=== PATIENT | female | born 2005 | race Caucasian/White ===

== ENCOUNTER 2024-03-17 00:03 | Inpatient (IN) | payer OTHER, SELFPAY ==
[2024-03-17] VITALS (162 sets, daily range): BP systolic 95–152; BP diastolic 22–102; PULSE 64–169; TEMP 36.3–37; O2SAT 93–100; BMI 41.5
--- NOTE | 2024-03-17 00:44 | LDADM ---
This patient, Loulou Chang, was admitted to Labor/Delivery/Recovery 107 on 03/17/24 at 00:03. Plans for labor, pain management and were discussed with patient. Patient/family oriented to hospital policies and general routines including ID bracelet, bed and alarms, visiting hours, pain management, procedures, bathroom and other care routines, personal items, smoking policy, room service/diet and guest tray routines, security routines, and visiting hours. Patient/Family are encouraged to report perceived risks to care and to ask questions if they do not understand what they are told or what they should do. See OBIX for further documentation.
[2024-03-17] MEDS: miSOPROStol 25 MCG TABLET 50 MCG BUCCAL ×3 (01:10→09:21)
[2024-03-17 01:16] LABS: Basophils Percent Auto 0.4 % (0.2-1.2); Eosinophils Absolute Auto 0.1 K/mm3 (0-0.3); Eosinophils Percent Auto 1.1 % (0-4.4); Hemoglobin 10.4 g/dL (12.0-15.0); Immature Granulocyte Absolute 0.23 K/mm3 (0.00-0.031); Immature Granulocyte Percent A 2.5 % (0-0.5); Lymphocytes Absolute Auto 1.56 K/mm3 (0.9-3.2); Lymphocytes Percent Auto 16.7 % (18.3-44.2); Mean Corpuscular HGB Conc 32.5 g/dl (32-36); Mean Corpuscular Hemoglobin 26.9 pg (26-34); Mean Corpuscular Volume 82.9 fl (80-100); Mean Platelet Volume 9.9 fl (7.4-10.4); Monocytes Absolute Auto 0.8 K/mm3 (0.1-0.6); Monocytes Percent Auto 8.9 % (2.6-8.5); Neutrophils Absolute Auto 6.6 K/mm3 (1.3-6.7); Neutrophils Percent Auto 70.4 % (45.5-73.1); Platelet Count Result 281 k/mm3 (150-375); Red Blood Count 3.86 M/mm3 (4.2-5.4); Red Cell Distribution Width 18.3 % (11.5-14.5); White Blood Count 9.3 K/mm3 (4.5-10.0)
[2024-03-17 02:14] LABS: HIV 1/2 Ab P24 Ag Result Negative (Negative)
[2024-03-17 02:58] LABS: Rapid Plasma Reagin Non-Reactive (NonReactive)
--- NOTE | 2024-03-17 05:23 | P.PNAN_ITS ---
Anes - Eval Pre Procedure Procedure: labor epidural Date/Time: 03/17/24 05:23 Preop Diagnosis: pain during labor Pre Op Diagnosis: Induction of Labor Patient Data Age: 18 Gender: F Height: 1.65 m Weight: 113.18 kg Last Vital Signs Pulse 93 03/17/24 05:01 BP 121/57 L 03/17/24 05:01 O2 Del Method Room Air 03/17/24 00:41 Allergies Allergy/AdvReac Type Severity Reaction Status Date / Time No Known Allergies Allergy Verified 03/17/24 01:35 Home Medications ?Medication ?Instructions ?Recorded ?Confirmed ?Type ferrous sulfate 325 mg (65 mg 325 mg PO DAILY 03/17/24 03/17/24 History iron) tablet,delayed release Laboratory Tests 03/17/24 00:19 WBC 9.3 K/mm3 (4.5-10.0) RBC 3.86 L M/mm3 (4.2-5.4) Hgb 10.4 L g/dL (12.0-15.0) Hct 32.0 L % (37.0-47.0) MCV 82.9 fl (80-100) MCH 26.9 pg (26-34) MCHC 32.5 g/dl (32-36) RDW 18.3 H % (11.5-14.5) Plt Count 281 k/mm3 (150-375) MPV 9.9 fl (7.4-10.4) Immature Gran % (Auto) 2.5 H % (0-0.5) Neut % (Auto) 70.4 % (45.5-73.1) Lymph % (Auto) 16.7 L % (18.3-44.2) [place] % (Auto) 8.9 H % (2.6-8.5) Eos % (Auto) 1.1 % (0-4.4) Baso % (Auto) 0.4 % (0.2-1.2) Lymph # (Auto) 1.56 K/mm3 (0.9-3.2) [place] # (Auto) 0.8 H K/mm3 (0.1-0.6) Eos # (Auto) 0.1 K/mm3 (0-0.3) Baso # (Auto) 0.0 K/mm3 (0.0-0.1) Abs Immat Gran (auto) 0.23 H K/mm3 (0.00-0.031) Absolute Neuts (auto) 6.6 K/mm3 (1.3-6.7) Absolute Nucleated RBC 0.000 K/mm3 (0.0-0.012) Nucleated RBC % 0.0 % (0.0-0.2) RPR Non-reactive (NonReactive) HIV 1&2 Ab/P24 Ag 4thGn Negative (Negative) Blood Type O Positive Antibody Screen Negative Patient hx anesthesia problems: none Family hx anesthesia problems: none Results Review: All pre-operative results and documents have been reviewed as part of the pre-operative evaluation. COUNTS INCLUDE 234 BEDS AT THE [facility] Past Medical History Medical History (Updated 03/17/24 @ 05:24 by Glenny Mac CRNA) Eczema Morbid obesity IUP (intrauterine ), incidental Family History Family History (Updated 03/07/24 @ 14:30 by Sissy Vaughn RN) Mother Congestive heart failure Social History Social History Smoking status: Never smoker Second hand tobacco smoke exposure: Yes Do You Feel Safe in your Home?: Yes Lack of Transportation: No Lack of Food: Never True Current Housing: I Have Housing Concerned About Future Housing: No Difficulty Paying Gas/Electric Bills: No Difficulty Paying for Meds: No Currently Unemployed: No Education: High School Diploma/GED Difficulty w/ Childcare or Family Care: No Spiritual care concerns: No Exam Day of Procedure 03/17/24 05:23
--- NOTE | 2024-03-17 08:19 | P.DS_ITS ---
DS: Admitting Diagnosis Discharge Date 03/17/24 Admitting Diagnosis term DS: Discharge Diagnosis Discharge Diagnosis (1) Term delivered: Code(s): O80 - Encounter for full-term uncomplicated delivery Status: Acute OB - DS: Summary OB Procedures : None OB Procedures Intrapartum: Spontaneous Vag Delivery OB Procedures: : None Time Spent with Patient Time attestation: Total time spent providing and/or coordinating discharge services: DS: Data Data Completed and Pending Labs on day of discharge: Labs from last 24 hours 03/17/24 00:19 WBC 9.3 RBC 3.86 L Hgb 10.4 L Hct 32.0 L MCV 82.9 MCH 26.9 MCHC 32.5 RDW 18.3 H Plt Count 281 MPV 9.9 Immature Gran % (Auto) 2.5 H Neut % (Auto) 70.4 Lymph % (Auto) 16.7 L [place] % (Auto) 8.9 H Eos % (Auto) 1.1 Baso % (Auto) 0.4 Lymph # (Auto) 1.56 [place] # (Auto) 0.8 H Eos # (Auto) 0.1 Baso # (Auto) 0.0 Abs Immat Gran (auto) 0.23 H Absolute Neuts (auto) 6.6 Absolute Nucleated RBC 0.000 Nucleated RBC % 0.0 RPR Non-reactive HIV 1&2 Ab/P24 Ag 4thGn Negative Blood Type O Positive Antibody Screen Negative Discharge Plan Discharge Discharging Clinician: Wilfrido Klein Patient Disposition: Home, Self-Care Activity: pelvic rest Diet: regular Patient Instructions: Antibiotic Form Patient Language: Nepali Stand Alone Forms: General Discharge Information Follow-up/Referrals: Wilfrido Klein MD [Physician] - Discharge Medications: Continued ferrous sulfate 325 mg (65 mg iron) tablet,delayed release (DR/EC) 325 mg PO DAILY Date of admission: 03/17/24 00:03 Primary Care Provider: UNKNOWN,DOCTOR Admitting Provider: Mike Archer Attending physician on admission: Mike Archer Condition: Stable
--- NOTE | 2024-03-17 08:19 | PM.OBPNVD ---
OB - PN: Subj Subjective Date/time seen: 03/17/24 08:19 Patient comments: no complaints, pain well controlled and tolerating diet OB - PN: Obj Data Labs 03/17/24 00:19 Labs: Laboratory Results - last 24 hr 03/17/24 00:19 WBC 9.3 RBC 3.86 L Hgb 10.4 L Hct 32.0 L MCV 82.9 MCH 26.9 MCHC 32.5 RDW 18.3 H Plt Count 281 MPV 9.9 Immature Gran % (Auto) 2.5 H Neut % (Auto) 70.4 Lymph % (Auto) 16.7 L [place] % (Auto) 8.9 H Eos % (Auto) 1.1 Baso % (Auto) 0.4 Lymph # (Auto) 1.56 [place] # (Auto) 0.8 H Eos # (Auto) 0.1 Baso # (Auto) 0.0 Abs Immat Gran (auto) 0.23 H Absolute Neuts (auto) 6.6 Absolute Nucleated RBC 0.000 Nucleated RBC % 0.0 RPR Non-reactive HIV 1&2 Ab/P24 Ag 4thGn Negative Blood Type O Positive Antibody Screen Negative OB - PN A/P Plan day: 2 Plan: routine care and discharge home Time Spent With Patient Time: Total time spent is greater than 50% in coordination of care (as documented) at patient's floor/unit and/or counseling patient: Exam Const: General: comfortable and no acute distress Resp: Effort & Inspection: normal respiratory effort Auscultation: no rales, no rhonchi and no wheezes Cardio: Rate: regular rate Heart sounds: no click, no murmurs and no rubs GI: GI Palp: Yes Soft to palpation and No Tenderness to palpation present (GI) Auscultation: normal bowel sounds Extrem: General: normal to inspection, no pedal edema and no calf tenderness
--- NOTE | 2024-03-17 08:27 | WPDHPUPDATE1 ---
History and Physical Update Update Date/Time: 03/17/24 08:27 18-year-old 1 at term who presents for elective induction of labor. She has received 2 doses Cytotec for unfavorable cervix. Her cervix remains less than a cm on last cervical exam. She has reassuring status. Will proceed with active management of labor induction. History and Physical has been reviewed, including an updated exam of the patient. There are NO changes in the patient's condition. Risks, benefits, and alternatives have been discussed and questions answered. Patient agrees to proceed with procedure.
--- NOTE | 2024-03-17 13:15 | PM.OBPNVD ---
OB - PN: Subj Subjective Date/time seen: 03/17/24 13:15 Interval history: Artificial rupture of membranes -meconium-stained fluid, 1 cm, 60%, -2. Reassuring status. Continue active management of labor. Start Pitocin when needed. OB - PN: Obj Data Labs 03/17/24 00:19 Labs: Laboratory Results - last 24 hr 03/17/24 00:19 WBC 9.3 RBC 3.86 L Hgb 10.4 L Hct 32.0 L MCV 82.9 MCH 26.9 MCHC 32.5 RDW 18.3 H Plt Count 281 MPV 9.9 Immature Gran % (Auto) 2.5 H Neut % (Auto) 70.4 Lymph % (Auto) 16.7 L [place] % (Auto) 8.9 H Eos % (Auto) 1.1 Baso % (Auto) 0.4 Lymph # (Auto) 1.56 [place] # (Auto) 0.8 H Eos # (Auto) 0.1 Baso # (Auto) 0.0 Abs Immat Gran (auto) 0.23 H Absolute Neuts (auto) 6.6 Absolute Nucleated RBC 0.000 Nucleated RBC % 0.0 RPR Non-reactive HIV 1&2 Ab/P24 Ag 4thGn Negative Blood Type O Positive Antibody Screen Negative OB - PN A/P Time Spent With Patient Time: Total time spent is greater than 50% in coordination of care (as documented) at patient's floor/unit and/or counseling patient:
[2024-03-17] MEDS: LACTATED RINGERS 1,000 ML 125 ML IV CONT (13:27)
[2024-03-17] MEDS: OXYTOCIN 30 UNITS/NS 500 ML 30 UNITS/500 ML BAG IV CONT (13:29)
[2024-03-17] MEDS: fentaNYL CITRATE INJ (*CRX) 100 MCG/2 ML VIAL IV PUSH ×2 (14:17→15:25)
[2024-03-17] MEDS: LACTATED RINGERS 1,000 ML 999 ML IV CONT ×2 (16:13→21:20)
[2024-03-18] VITALS (93 sets, daily range): BP systolic 65–152; BP diastolic 43–101; PULSE 92–204; RESP 14–28; TEMP 36.1–38.1; O2SAT 79–100
[2024-03-18] MEDS: AZITHROMYCIN 500 MG/NS 250 ML 500 MG/250 ML BAG 250 MG IVPB (03:25)
[2024-03-18] MEDS: ceFAZolin 2 GM/D5W 50 ML 2 GM/50 ML BAG IVPB (03:25)
[2024-03-18] MEDS: FAMOTIDINE 20 MG/2 ML VIAL IV PUSH (03:25)
[2024-03-18] MEDS: ONDANSETRON INJ 4 MG/2 ML VIAL IV PUSH (03:25)
[2024-03-18] MEDS: ACETAMINOPHEN 500 MG TABLET 1000 MG PO (03:26)
--- NOTE | 2024-03-18 03:30 | PM.IMHP ---
H&P: HPI History of Present Illness Date/Time: 03/18/24 03:30 Chief Complaint: Term Narrative: 18-year-old 1 at 39 weeks gestation who presented for elective induction. Patient progressed to complete and pushed for close to 2 hours. She then desired delivery. There was tachycardia and maternal fever. We agreed to proceed with delivery. The patient understands the details of the procedure. The procedure has been explained in detail. She understands the risks. She understands that injuries may occur that result in hospitalization, more surgery, and severe illness. She understands risk of hemorrhage and infection. She denies any chest pain or shortness of breath. She denies any nausea, vomiting, fever, chills. Review of Systems Review of Systems: All systems reviewed & are unremarkable except as noted in HPI and below Constitutional: Constitutional: Denies chills, Denies fatigue, Denies fever(s) and Denies weakness Eyes: Eyes: Denies blurry vision, Denies change in vision, Denies loss of peripheral vision, Denies loss of vision, Denies other visual disturbances and Denies eye pain ENT: Denies vertigo, Denies dizziness, Denies hearing loss, Denies mouth pain, Denies nasal obstruction, Denies neck mass and Denies neck pain Cardiovascular: Cardiovascular: Denies chest pain, Denies diaphoresis, Denies syncope, Denies leg edema and Denies dyspnea Respiratory: Respiratory: Denies chest congestion, Denies cough, Denies hemoptysis, Denies dyspnea and Denies wheezing Gastrointestinal: Gastrointestinal: Denies abdominal pain, Denies constipation, Denies diarrhea, Denies nausea and Denies vomiting Genitourinary: Genitourinary: Denies hematuria, Denies change in libido, Denies nocturia, Denies genital lesions, Denies flank pain and Denies urinary urgency Musculoskeletal: Musculoskeletal: Denies abnormal gait, Denies back pain, Denies myalgias, Denies arthralgias, Denies joint swelling, Denies muscle weakness and Denies neck pain Integumentary/Breasts: Skin/Breast: Denies swelling, Denies breast pain, Denies breast mass, Denies dry skin, Denies nipple discharge, Denies unusual bruising and Denies jaundice Neurologic: Denies Neuro-related abnormal movements, Denies Abnormal speech present, Denies abnormal gait, Denies behavioral changes, Denies confusion, Denies vertigo, Denies dizziness, Denies syncope, Denies loss of vision, Denies memory loss, Denies convulsions and Denies weakness Psychiatric: Psychiatric: Denies abnormal sleep pattern, Denies behavioral changes, Denies change in libido, Denies confusion, Denies depression, Denies anhedonia and Denies memory loss Endocrine: Endocrine: Reports no additional endocrine complaints, Denies change in libido and Denies fatigue Hematologic/Lymphatic: Hematologic/Lymphatic: Reports no additional hematologic/lymphatic complaints Allergic/Immunologic: Allergic/Immunologic: Reports no additional allergic/immunologic complaints and Denies wheezing [facility] Past Medical History Medical History (Updated 03/18/24 @ 03:39 by Wilfrido Klein MD) Eczema Morbid obesity IUP (intrauterine ), incidental Family History Family History (Updated 03/07/24 @ 14:30 by Sissy Vaughn RN) Mother Congestive heart failure Social History Social History Smoking status: Never smoker Second hand tobacco smoke exposure: Yes Do You Feel Safe in your Home?: Yes Lack of Transportation: No Lack of Food: Never True Current Housing: I Have Housing Concerned About Future Housing: No Difficulty Paying Gas/Electric Bills: No Difficulty Paying for Meds: No Currently Unemployed: No Education: High School Diploma/GED Difficulty w/ Childcare or Family Care: No Spiritual care concerns: No Meds Home Medications and Allergies Home Medications ?Medication ?Instructions ?Recorded ?Confirmed ?Type ferrous sulfate 325 mg (65 mg 325 mg PO DAILY 03/17/24 03/17/24 History iron) tablet,delayed release Allergies Allergy/AdvReac Type Severity Reaction Status Date / Time No Known Allergies Allergy Verified 03/17/24 01:35 Vital Signs Vital Signs - 24 hr 03/17/24 03:31 03/17/24 04:01 03/17/24 04:31 Temperature Pulse Rate 88 100 82 Blood Pressure 118/67 115/48 L 102/76 Pulse Oximetry Oxygen Delivery 03/17/24 05:01 03/17/24 05:31 03/17/24 06:01 Temperature Pulse Rate 93 96 108 H Blood Pressure 121/57 L 104/69 111/69 Pulse Oximetry Oxygen Delivery 03/17/24 06:31 03/17/24 07:00 03/17/24 07:01 Temperature 97.4 F L Pulse Rate 101 H 89 Blood Pressure 121/63 121/91 H Pulse Oximetry Oxygen Delivery 03/17/24 07:11 03/17/24 07:31 03/17/24 08:01 Temperature Pulse Rate 89 83 92 Blood Pressure 113/49 L 116/55 L 128/77 Pulse Oximetry Oxygen Delivery 03/17/24 08:31 03/17/24 09:01 03/17/24 09:31 Temperature Pulse Rate 86 80 93 Blood Pressure 131/83 128/77 135/87 Pulse Oximetry Oxygen Delivery 03/17/24 10:31 03/17/24 11:00 03/17/24 11:01 Temperature 97.3 F L Pulse Rate 83 81 Blood Pressure 112/54 L 110/58 L Pulse Oximetry Oxygen Delivery 03/17/24 11:31 03/17/24 12:01 03/17/24 12:31 Temperature Pulse Rate 94 91 100 Blood Pressure 111/70 120/51 L 113/49 L Pulse Oximetry Oxygen Delivery 03/17/24 13:01 03/17/24 13:30 03/17/24 13:31 Temperature 98.1 F Pulse Rate 94 101 H Blood Pressure 130/76 141/88 H Pulse Oximetry Oxygen Delivery 03/17/24 14:32 03/17/24 15:01 03/17/24 15:31 Temperature Pulse Rate 95 94 89 Blood Pressure 145/50 H 141/78 H 127/48 L Pulse Oximetry Oxygen Delivery 03/17/24 16:01 03/17/24 16:16 03/17/24 16:19 Temperature Pulse Rate 107 H 104 H 99 Blood Pressure 135/66 151/85 H 152/88 H Pulse Oximetry 97 Oxygen Delivery 03/17/24 16:21 03/17/24 16:24 03/17/24 16:26 Temperature Pulse Rate 116 H 103 H 105 H Blood Pressure 144/102 H 145/67 H 146/74 H Pulse Oximetry 100 100 Oxygen Delivery 03/17/24 16:28 03/17/24 16:31 03/17/24 16:33 Temperature Pulse Rate 111 H 117 H 104 H Blood Pressure 129/69 127/59 L 121/65 Pulse Oximetry 100 93 Oxygen Delivery 03/17/24 16:34 03/17/24 16:36 03/17/24 16:38 Temperature Pulse Rate 102 H 88 Blood Pressure 116/58 L 123/60 Pulse Oximetry 98 Oxygen Delivery 03/17/24 16:39 03/17/24 16:41 03/17/24 16:43 Temperature Pulse Rate 113 H 110 H Blood Pressure 112/56 L 111/61 Pulse Oximetry 98 Oxygen Delivery 03/17/24 16:44 03/17/24 16:46 03/17/24 16:48 Temperature Pulse Rate 93 109 H Blood Pressure 123/61 105/55 L Pulse Oximetry 98 Oxygen Delivery 03/17/24 16:49 03/17/24 16:51 03/17/24 16:53 Temperature Pulse Rate 102 H 112 H Blood Pressure 114/55 L 99/44 L Pulse Oximetry 98 Oxygen Delivery 03/17/24 16:54 03/17/24 16:56 03/17/24 16:58 Temperature Pulse Rate 120 H 116 H Blood Pressure 98/52 L 103/56 L Pulse Oximetry 98 Oxygen Delivery 03/17/24 16:59 03/17/24 17:01 03/17/24 17:03 Temperature Pulse Rate 114 H 90 Blood Pressure 119/78 122/70 Pulse Oximetry 98 Oxygen Delivery 03/17/24 17:04 03/17/24 17:06 03/17/24 17:08 Temperature Pulse Rate 74 97 Blood Pressure 125/61 111/66 Pulse Oximetry 99 Oxygen Delivery 03/17/24 17:09 03/17/24 17:14 03/17/24 17:19 Temperature Pulse Rate 122 H Blood Pressure 103/22 L Pulse Oximetry 100 100 100 Oxygen Delivery 03/17/24 17:24 03/17/24 17:29 03/17/24 17:31 Temperature Pulse Rate 91 Blood Pressure 108/63 Pulse Oximetry 100 100 Oxygen Delivery 03/17/24 17:34 03/17/24 17:39 03/17/24 17:44 Temperature Pulse Rate Blood Pressure Pulse Oximetry 100 100 100 Oxygen Delivery 03/17/24 17:46 03/17/24 17:49 03/17/24 17:54 Temperature Pulse Rate 105 H Blood Pressure 95/74 L Pulse Oximetry 100 100 Oxygen Delivery 03/17/24 17:59 03/17/24 18:01 03/17/24 18:04 Temperature Pulse Rate 91 Blood Pressure 111/50 L Pulse Oximetry 100 100 Oxygen Delivery 03/17/24 18:09 03/17/24 18:14 03/17/24 18:15 Temperature 98.6 F Pulse Rate Blood Pressure Pulse Oximetry 100 100 Oxygen Delivery 03/17/24 18:16 03/17/24 18:19 03/17/24 18:24 Temperature Pulse Rate 94 Blood Pressure 118/52 L Pulse Oximetry 100 99 Oxygen Delivery 03/17/24 18:29 03/17/24 18:29 03/17/24 18:31 Temperature Pulse Rate 95 Blood Pressure 103/43 L Pulse Oximetry 100 Oxygen Delivery Room Air 03/17/24 18:34 03/17/24 18:39 03/17/24 18:44 Temperature Pulse Rate Blood Pressure Pulse Oximetry 100 100 100 Oxygen Delivery 03/17/24 18:49 03/17/24 18:54 03/17/24 18:59 Temperature Pulse Rate Blood Pressure Pulse Oximetry 100 100 100 Oxygen Delivery 03/17/24 19:01 03/17/24 19:04 03/17/24 19:09 Temperature Pulse Rate 72 Blood Pressure 122/73 Pulse Oximetry 100 100 Oxygen Delivery 03/17/24 19:14 03/17/24 19:19 03/17/24 19:24 Temperature Pulse Rate Blood Pressure Pulse Oximetry 100 100 99 Oxygen Delivery 03/17/24 19:29 03/17/24 19:31 03/17/24 19:34 Temperature Pulse Rate 78 Blood Pressure 134/73 Pulse Oximetry 99 100 Oxygen Delivery 03/17/24 19:36 03/17/24 19:41 03/17/24 19:46 Temperature Pulse Rate Blood Pressure Pulse Oximetry 100 100 100 Oxygen Delivery 03/17/24 19:51 03/17/24 19:56 03/17/24 20:00 Temperature 98.5 F Pulse Rate Blood Pressure Pulse Oximetry 100 100 Oxygen Delivery 03/17/24 20:01 03/17/24 20:06 03/17/24 20:11 Temperature Pulse Rate 97 Blood Pressure 123/70 Pulse Oximetry 100 100 100 Oxygen Delivery 03/17/24 20:16 03/17/24 20:21 03/17/24 20:26 Temperature Pulse Rate Blood Pressure Pulse Oximetry 100 100 100 Oxygen Delivery 03/17/24 20:31 03/17/24 20:36 03/17/24 20:41 Temperature Pulse Rate 92 Blood Pressure 143/66 H Pulse Oximetry 100 100 100 Oxygen Delivery 03/17/24 20:46 03/17/24 20:51 03/17/24 20:56 Temperature Pulse Rate Blood Pressure Pulse Oximetry 100 100 100 Oxygen Delivery 03/17/24 21:01 03/17/24 21:06 03/17/24 21:11 Temperature Pulse Rate 94 Blood Pressure 135/66 Pulse Oximetry 100 100 100 Oxygen Delivery 03/17/24 21:17 03/17/24 21:22 03/17/24 21:27 Temperature Pulse Rate Blood Pressure Pulse Oximetry 100 100 100 Oxygen Delivery 03/17/24 21:31 03/17/24 21:32 03/17/24 21:37 Temperature Pulse Rate 111 H Blood Pressure 144/93 H Pulse Oximetry 100 100 Oxygen Delivery 03/17/24 21:42 03/17/24 21:47 03/17/24 21:52 Temperature Pulse Rate Blood Pressure Pulse Oximetry 100 100 100 Oxygen Delivery 03/17/24 21:57 03/17/24 22:00 03/17/24 22:01 Temperature 98.2 F Pulse Rate 81 Blood Pressure 147/77 H Pulse Oximetry 100 Oxygen Delivery 03/17/24 22:02 03/17/24 22:07 03/17/24 22:12 Temperature Pulse Rate Blood Pressure Pulse Oximetry 100 100 100 Oxygen Delivery 03/17/24 22:17 03/17/24 22:22 03/17/24 22:27 Temperature Pulse Rate Blood Pressure Pulse Oximetry 100 100 100 Oxygen Delivery 03/17/24 22:31 03/17/24 22:32 03/17/24 22:37 Temperature Pulse Rate 111 H Blood Pressure 106/81 Pulse Oximetry 100 100 Oxygen Delivery 03/17/24 22:42 03/17/24 22:47 03/17/24 22:48 Temperature Pulse Rate Blood Pressure Pulse Oximetry 100 100 98 Oxygen Delivery 03/17/24 22:53 03/17/24 22:58 03/17/24 23:02 Temperature Pulse Rate 104 H Blood Pressure 129/69 Pulse Oximetry 100 100 Oxygen Delivery 03/17/24 23:03 03/17/24 23:08 03/17/24 23:09 Temperature Pulse Rate Blood Pressure Pulse Oximetry 100 100 100 Oxygen Delivery 03/17/24 23:14 03/17/24 23:19 03/17/24 23:24 Temperature Pulse Rate Blood Pressure Pulse Oximetry 100 100 100 Oxygen Delivery 03/17/24 23:29 03/17/24 23:31 03/17/24 23:36 Temperature Pulse Rate 169 H Blood Pressure 111/90 Pulse Oximetry 100 100 100 Oxygen Delivery 03/17/24 23:41 03/17/24 23:46 03/17/24 23:51 Temperature Pulse Rate Blood Pressure Pulse Oximetry 100 100 100 Oxygen Delivery 03/17/24 23:56 03/18/24 00:00 03/18/24 00:01 Temperature 98.2 F Pulse Rate Blood Pressure 99/45 L Pulse Oximetry 100 100 Oxygen Delivery 03/18/24 00:02 03/18/24 00:02 03/18/24 00:07 Temperature Pulse Rate Blood Pressure Pulse Oximetry 100 100 100 Oxygen Delivery 03/18/24 00:12 03/18/24 00:17 03/18/24 00:22 Temperature Pulse Rate Blood Pressure Pulse Oximetry 100 100 100 Oxygen Delivery 03/18/24 00:27 03/18/24 00:31 03/18/24 00:32 Temperature Pulse Rate 100 Blood Pressure 122/85 Pulse Oximetry 100 100 Oxygen Delivery 03/18/24 00:37 03/18/24 00:42 03/18/24 00:47 Temperature Pulse Rate Blood Pressure Pulse Oximetry 100 100 100 Oxygen Delivery 03/18/24 00:52 03/18/24 00:57 03/18/24 01:01 Temperature Pulse Rate 96 Blood Pressure 129/73 Pulse Oximetry 99 99 Oxygen Delivery 03/18/24 01:02 03/18/24 01:07 03/18/24 01:12 Temperature Pulse Rate Blood Pressure Pulse Oximetry 99 99 100 Oxygen Delivery 03/18/24 01:17 03/18/24 01:22 03/18/24 01:27 Temperature Pulse Rate Blood Pressure Pulse Oximetry 100 100 100 Oxygen Delivery 03/18/24 01:31 03/18/24 01:32 03/18/24 01:37 Temperature Pulse Rate 99 Blood Pressure 120/61 Pulse Oximetry 100 100 Oxygen Delivery 03/18/24 01:42 03/18/24 01:47 03/18/24 01:52 Temperature Pulse Rate Blood Pressure Pulse Oximetry 100 100 100 Oxygen Delivery 03/18/24 01:57 03/18/24 02:01 03/18/24 02:02 Temperature Pulse Rate 124 H Blood Pressure 117/101 H Pulse Oximetry 100 100 Oxygen Delivery 03/18/24 02:07 03/18/24 02:12 03/18/24 02:14 Temperature Pulse Rate Blood Pressure Pulse Oximetry 100 100 92 Oxygen Delivery 03/18/24 02:16 03/18/24 02:19 03/18/24 02:24 Temperature Pulse Rate Blood Pressure Pulse Oximetry 100 100 100 Oxygen Delivery 03/18/24 02:29 03/18/24 02:31 03/18/24 02:32 Temperature Pulse Rate 204 H Blood Pressure 65/43 L Pulse Oximetry 98 100 Oxygen Delivery 03/18/24 02:34 03/18/24 02:37 03/18/24 02:42 Temperature Pulse Rate 159 H Blood Pressure 86/59 L Pulse Oximetry 100 100 Oxygen Delivery 03/18/24 02:45 03/18/24 02:47 03/18/24 02:48 Temperature Pulse Rate Blood Pressure Pulse Oximetry 100 79 L 85 L Oxygen Delivery 03/18/24 02:48 03/18/24 02:51 03/18/24 02:53 Temperature Pulse Rate Blood Pressure Pulse Oximetry 100 100 100 Oxygen Delivery 03/18/24 02:56 03/18/24 03:01 03/18/24 03:06 Temperature Pulse Rate 106 H Blood Pressure 119/74 Pulse Oximetry 100 100 100 Oxygen Delivery 03/18/24 03:11 03/18/24 03:16 03/18/24 03:21 Temperature Pulse Rate Blood Pressure Pulse Oximetry 100 100 100 Oxygen Delivery 03/18/24 03:26 Temperature Pulse Rate Blood Pressure Pulse Oximetry 100 Oxygen Delivery Exam Const: General: cooperative, healthy appearing, comfortable and no acute distress Orientation/consciousness: oriented to person, oriented to place and oriented to time HENMT: Head: normal to inspection Ears: external ears normal Face/Nose/Sinus: Normal external nose present and normal facial exam Face and sinus: normal facial exam Eyes: General: appearance normal, both eyes and all related structures Neck: Neck: normal visual inspection, trachea midline and supple Resp: Auscultation: clear to auscultation bilaterally, no crackles, no rales, no rhonchi and no wheezes Cardio: Rate: regular rate Rhythm: regular rhythm Heart sounds: no click, no murmurs and no rubs GI: GI Palp: No abdominal tenderness, No Soft to palpation, No Tenderness to palpation present (GI) and No Palpable mass present Auscultation: normal bowel sounds Skin: General skin exam: normal color and no rashes or lesions noted Neuro: General: oriented to person, oriented to place and oriented to time Extrem: General: normal to inspection, no joint enlargement, no clubbing, cyanosis or edema, no pedal edema and no calf tenderness Psych: Appearance: grossly normal Mental Status: mental status grossly normal Speech and movement: Normal speech and movement present Assessment and Plan Assessment and plan (1) tachycardia: Status: Acute (2) Failure of descent in labor, delivered, current hospitalization: Code(s): O62.2 - Other uterine inertia Status: Acute Assessment and Plan: 18-year-old 1 at 39 weeks gestation who presented for elective induction. Patient progressed to complete and pushed for close to 2 hours. She then desired delivery. There was tachycardia and maternal fever. We agreed to proceed with delivery. she understands the risks, benefits, and alternatives. She has completed the informed consent process is ready to proceed. (3) Delivery by elective section: Code(s): O82 - Encounter for delivery without indication Status: Acute (4) chromosome abnormality, antepartum: Code(s): O35.10X0 - Maternal care for (suspected) chromosomal abnormality in fetus, unspecified, not applicable or unspecified Status: Acute Plan this patient is a 18-year-old
--- NOTE | 2024-03-18 03:40 | WPDHPUPDATE1 ---
History and Physical Update Update Date/Time: 03/18/24 03:40 History and Physical has been reviewed, including an updated exam of the patient. There are NO changes in the patient's condition. Risks, benefits, and alternatives have been discussed and questions answered. Patient agrees to proceed with procedure.
--- NOTE | 2024-03-18 04:10 | S_PTH ---
PATIENT: Loulou Chang LOC: [facility] U#:[id number] AGE/SX: 18/F ROOM: 287 RE03/17/[address]: Mike Archer MD : 2005 BED: 00 DIS: 03/20/2024 SPEC #: [id number] RECD: 03/18/24 06:57 STATUS: DANIELLE REMouna #: [id number] ODALIS: 03/18/24 04:[address]: Wilfrido Klein DEPT: [facility] Surgical RECD BY: Azucena Mansfield ENTERED: 03/18/24 06:57 SP TYPE: Surgical OTHR DR: Mike Archer MD UNKNOWN,DOCTOR Tissues: A - Placenta Procedures: Hematoxylin and Eosin Stain Gross and Microscopic Level 5
--- NOTE | 2024-03-18 04:35 | P.PCNOB_ITS ---
OB - Delivery Note Procedure Delivery date: 03/18/24 Pre-op diagnosis: Arrest of Decent, Elective Induction of Labor and Non- Reassuring Status Post-op Diagnosis: Same Procedure Performed: Primary Surgeon: Wilfrido Klein MD Anesthesia type: Epidural Description of Procedure/Findings: The patient was taken the operating room.? She was prepped and draped in dorsal supine position with a leftward tilt.? This was done after spinal anesthetic was applied.? A low-transverse skin incision was made and carried down till of the fascia with the knife.? The fascial incision was made with the knife.? The fascial incision was extended laterally with Loving scissors.? The fascia was tented upward superiorly and inferiorly the rectus muscles were dissected off bluntly.? The rectus muscles were the midline.? The preperitoneal fat and peritoneum were dissected open bluntly at the superior aspect of the separa luke rectus muscles.? The peritoneal incision was extended superior and inferior with good position of bladder.? The uterine incision was made with a scalpel down to the level of the amniotic cavity.? The amniotic cavity was entered bluntly.? The was delivered.? The cord was clamped and cut and the was handed off to waiting pediatric staff.? Cord bloods were obtained.? The placenta was removed manually.? The uterus was exteriorized.? The uterus was cleared of all clots, debris and membranes.? The uterus was closed in 0 Vicryl running lock fashion.? An imbricating over a was placed along the incision line as well.? The uterus was returned to the abdomen.? The gutters were cleared of all clots and debris.? The fascia was closed with 0 Vicryl running fashion.? The subcutaneous tissue was irrigated pinpoint bleeders were cauterized.? The skin was closed with subcuticular absorbable sondra.? The skin incision line was covered with glue.? The patient tolerated the procedure well.? She has taken recovery room in stable condition.? Sponge lap and needle counts were correct x2.?
[2024-03-18] MEDS: OXYTOCIN 30 UNITS/NS 500 ML 30 UNITS/500 ML BAG 125 UNITS IV CONT (06:15)
[2024-03-18] MEDS: LIDOCAINE 5% PATCH 1 PATCH TRANSDERM (06:50)
--- NOTE | 2024-03-18 07:29 | PC.NURSE ---
0701--Pt. to evelina to see her baby via bed.
--- NOTE | 2024-03-18 07:49 | OBPPTRN ---
Patient transferred to post room #287 via bed. Support person present. Oriented to unit, room, information board, rooming in, admission packet and security measures. Patient verbalizes understanding.
[2024-03-18] MEDS: PIPERACILLN/TAZ 3.375GM/NS50ML 3.375 GM/50 ML BAG IVPB ×3 (08:02→20:21)
[2024-03-18] MEDS: KETOROLAC 15 MG/ML VIAL (*BKC) IV PUSH ×3 (09:53→22:01)
[2024-03-18] MEDS: ACETAMINOPHEN 325 MG TABLET 650 MG PO ×3 (09:53→22:01)
[2024-03-18] MEDS: POLYSACCHARIDE IRON COMPLEX 150 MG CAPSULE PO (09:54)
[2024-03-18] MEDS: SIMETHICONE 80 MG TAB.CHEW PO ×3 (09:55→16:07)
[2024-03-18] MEDS: DOCUSATE SODIUM 100 MG CAPSULE PO ×2 (09:55→16:08)
[2024-03-18] MEDS: MULTIVIT/MIN/PREN/FOL AC/IRON TABLET 1 TAB PO (09:55)
[2024-03-18] MEDS: DEXTROSE 5%/0.45% SOD CHL 1,000 ML 125 ML IV CONT ×2 (11:26→20:21)
[2024-03-19] MEDS: PIPERACILLN/TAZ 3.375GM/NS50ML 3.375 GM/50 ML BAG IVPB (03:30)
[2024-03-19 04:45] VITALS: BP 109/69; PULSE 84; RESP 16; TEMP 37.2; O2SAT 98
[2024-03-19] MEDS: KETOROLAC 15 MG/ML VIAL (*BKC) IV PUSH (04:54)
[2024-03-19] MEDS: ACETAMINOPHEN 325 MG TABLET 650 MG PO ×4 (04:54→23:25)
[2024-03-19] MEDS: LIDOCAINE 5% PATCH 1 PATCH TRANSDERM ×2 (05:31→16:53)
[2024-03-19 05:38] LABS: Basophils Absolute Auto 0.1 K/mm3 (0.0-0.1); Basophils Percent Auto 0.4 % (0.2-1.2); Eosinophils Absolute Auto 0.2 K/mm3 (0-0.3); Eosinophils Percent Auto 1.1 % (0-4.4); Hemoglobin 7.8 g/dL (12.0-15.0); Immature Granulocyte Absolute 0.16 K/mm3 (0.00-0.031); Lymphocytes Absolute Auto 1.21 K/mm3 (0.9-3.2); Lymphocytes Percent Auto 7.8 % (18.3-44.2); Mean Corpuscular HGB Conc 31.2 g/dl (32-36); Mean Corpuscular Hemoglobin 26.9 pg (26-34); Mean Corpuscular Volume 86.2 fl (80-100); Mean Platelet Volume 9.9 fl (7.4-10.4); Monocytes Absolute Auto 1.2 K/mm3 (0.1-0.6); Monocytes Percent Auto 7.9 % (2.6-8.5); Neutrophils Absolute Auto 12.8 K/mm3 (1.3-6.7); Neutrophils Percent Auto 81.8 % (45.5-73.1); Platelet Count Result 221 k/mm3 (150-375); Red Cell Distribution Width 19.2 % (11.5-14.5); White Blood Count 15.6 K/mm3 (4.5-10.0)
--- NOTE | 2024-03-19 06:54 | WPDANLDPN2 ---
Anes-Prog Note L&D Date/Time: 03/19/24 06:54 Comfortable throughout: section Neuraxial method: epidural Epidural/Spinal procedure site: clean & non-tender Neuro status: Neuro function grossly intact. Cardiovascular status: normal Respiratory status: normal Airway patency: baseline Mental status: baseline Post-Op hydration status: normal Vital Signs: Last Vital Signs Temp 37.2 C 03/19/24 04:45 Pulse 84 03/19/24 04:45 Resp 16 03/19/24 04:45 BP 109/69 03/19/24 04:45 Pulse Ox 98 03/19/24 04:45 O2 Del Method Room Air 03/18/24 16:18 Pain score (VAS): 1 I/O: Intake & Output 03/18/24 03/18/24 03/19/24 15:59 23:59 07:59 Intake Total 640 1250 800 Output Total 948 664 1015 Balance 150 1050 -600 Post-procedural complaints: none Patient feedback: Patient satisfied with anesthetic care.
--- NOTE | 2024-03-19 06:55 | WPDANLDNPN2 ---
Anes-Prog Note L&D-Neuraxial Date/Time: 03/19/24 06:55 Neuraxial medications: epidural PF morphine Opiod-related complaints: none Patient feedback: Patient satisfied with post-operative pain management.
--- NOTE | 2024-03-19 07:18 | P.PNOB_ITS ---
OB - PN: Subj Subjective Date/time seen: 03/19/24 07:18 Interval history: Artificial rupture of membranes -meconium-stained fluid, 1 cm, 60%, -2. Reassuring status. Continue active management of labor. Start Pitocin when needed. Patient comments: no complaints, pain well controlled, tolerating diet and flatus present OB - PN: Obj Data Labs 03/19/24 05:02 Labs: Laboratory Results - last 24 hr 03/19/24 05:02 WBC 15.6 H RBC 2.90 L Hgb 7.8 L Hct 25.0 L MCV 86.2 MCH 26.9 MCHC 31.2 L RDW 19.2 H Plt Count 221 MPV 9.9 Immature Gran % (Auto) 1.0 H Neut % (Auto) 81.8 H Lymph % (Auto) 7.8 L Gillespie % (Auto) 7.9 Eos % (Auto) 1.1 Baso % (Auto) 0.4 Lymph # (Auto) 1.21 Gillespie # (Auto) 1.2 H Eos # (Auto) 0.2 Baso # (Auto) 0.1 Abs Immat Gran (auto) 0.16 H Absolute Neuts (auto) 12.8 H Absolute Nucleated RBC 0.000 Nucleated RBC % 0.0 OB - PN A/P Plan day: 1 Comments: Post Op LTCS - no problems, routine recovery Time Spent With Patient Time: Total time spent is greater than 50% in coordination of care (as documented) at patient's floor/unit and/or counseling patient: Exam 2 Const: General: cooperative, healthy appearing, comfortable and no acute distress Resp: Auscultation: no crackles, no rales, no rhonchi and no wheezes Cardio: Rhythm: regular rhythm Heart sounds: no click and no murmurs GI: Inspection: non-distended Auscultation: normal bowel sounds Extrem: General: normal to inspection, no pedal edema and no calf tenderness
[2024-03-19 08:40] VITALS: BP 114/62; PULSE 93; RESP 16; TEMP 36.4
[2024-03-19] MEDS: DOCUSATE SODIUM 100 MG CAPSULE PO ×2 (08:42→16:53)
[2024-03-19] MEDS: SIMETHICONE 80 MG TAB.CHEW PO ×2 (08:42→16:53)
[2024-03-19] MEDS: POLYSACCHARIDE IRON COMPLEX 150 MG CAPSULE PO ×2 (08:42→16:54)
[2024-03-19] MEDS: IBUPROFEN 600 MG TABLET PO ×3 (11:00→23:25)
[2024-03-19 19:18] VITALS: BP 117/61; PULSE 100; RESP 18; TEMP 36.5; O2SAT 99
[2024-03-19] MEDS: guaiFENesin 12 HR 600 MG TABCR PO (19:42)
[2024-03-20] MEDS: IBUPROFEN 600 MG TABLET PO (05:05)
[2024-03-20] MEDS: ACETAMINOPHEN 325 MG TABLET 650 MG PO (05:05)
--- NOTE | 2024-03-20 06:42 | PM.OBPNVD ---
OB - PN: Subj Subjective Date/time seen: 03/20/24 06:42 Interval history: pp day 3 desires d/c baby at [facility] OB - PN: Obj Data Labs 03/19/24 05:02 OB - PN A/P Plan day: 3 Plan: routine care and discharge home Time Spent With Patient Time: Total time spent is greater than 50% in coordination of care (as documented) at patient's floor/unit and/or counseling patient: Review of Systems Review of Systems: All systems reviewed & are unremarkable except as noted in HPI and below Exam Const: General: cooperative and healthy appearing Chest: Chest palpation & inspection: normal inspection of the chest Resp: Effort & Inspection: normal respiratory effort Cardio: Rate: regular rate GI: Other: Incision CDI Skin: General skin exam: normal color Neuro: General: patient oriented x3
--- NOTE | 2024-03-20 06:47 | PM.OBDSVD ---
DS: Admitting Diagnosis Discharge Date 03/20/24 Admitting Diagnosis IOL DS: Discharge Diagnosis Discharge Diagnosis (1) Delivery by section: Status: Acute OB - DS: Summary OB Procedures : None OB Procedures Intrapartum: OB Procedures: : None Peripartum Data Procedures: Procedures Operation Date: 03/18/24 03:30 Actual Procedure Side Surgeon p Section Not Applicable Wilfrido Klein MD Time Spent with Patient Time attestation: Total time spent providing and/or coordinating discharge services: DS: Data Data Completed and Pending Pending studies at discharge: Pending at discharge 03/18/24 04:10 Surgical [PTH] Routine Discharge Plan Discharge Attending physician on discharge: Wilfrido Klein Discharging Clinician: Wilfrido Klein Patient Disposition: Home, Self-Care Activity: pelvic rest Diet: regular Patient Instructions: Antibiotic Form Patient Language: Bolivian Stand Alone Forms: General Discharge Information Follow-up/Referrals: Wilfrido Klein MD [Physician] - Discharge Medications: New hydrocodone-acetaminophen 5-325 mg Tablet 1 tablet PO Q3H PRN (Reason: Breakthrough Pain Rated 4-6) Qty: 25 0RF Continued ferrous sulfate 325 mg (65 mg iron) tablet,delayed release (DR/EC) 325 mg PO DAILY Date of admission: 03/17/24 00:03 Primary Care Provider: UNKNOWN,DOCTOR Admitting Provider: Mike Archer Attending physician on admission: Mike Archer Condition: Stable
[2024-03-20 08:00] VITALS: BP 126/81; PULSE 88; RESP 16; TEMP 36.1; O2SAT 100
[2024-03-20] MEDS: SIMETHICONE 80 MG TAB.CHEW PO (08:04)
[2024-03-20] MEDS: DOCUSATE SODIUM 100 MG CAPSULE PO (08:04)
[2024-03-20] MEDS: POLYSACCHARIDE IRON COMPLEX 150 MG CAPSULE PO (08:04)
[2024-03-22 10:09] VITALS: BP 139/78; PULSE 112; RESP 18; TEMP 36.8; O2SAT 100
--- OUTSIDE RECORDS SUMMARY | 2024-03-24 00:24 | XMS_ITS | Continuity of Care Document ---
Author Organization [facility] [place] Address [address] [place] [address] Assessment No assessment recorded. Plan of Treatment Reminders Order Date Submit Date Provider Last Modified By Organization Details Last Modified Time Details Appointments SURG POST OP 025 10:45AM HEIDI COLON MD Not available Not available Not available Lab None record ed. Referral None record ed. Procedures None record ed. Surgeries None record ed. Imaging None record ed. Medication Orders None record ed. Patient TargetsNo targets recorded. Patient InstructionsNo instructions recorded. Reason for Referral None Reported. Results Created Date Observation Date Name Description Value Unit Range Abnormal Flag Note LastModifiedBy Organization Detail LastModifiedTime 09/08/19 24 09/08/2023 US, obste tric, nucha l trans lucen cy No observ ation record ed. RENO [address], [facility], [place], [address], 09/10/2023 10:53:56 09/08/19 24 09/08/2023 US, obste tric, nucha l trans lucen cy No observ ation record ed. [email or web address] [place] [address], [place], [address], 09/08/2023 13:17:08 09/14/19 24 09/14/2023 US, obste tric, follo w-up No observ ation record ed. [email or web address] [facility] [address], [place], [address], 09/16/2023 14:33:23 06/24/20 24 09/14/2023 US, obste tric, trans abdom inal No observ ation record ed. [email or web address] [facility] [address] [facility] [address], [place], [address], 09/15/2023 15:09:15 10/12/19 24 10/12/2023 US, obste tric No observ ation record ed. [email or web address] [facility] [address] [facility], [place], [address], 10/13/2023 16:44:42 11/09/19 24 11/09/2023 US, obste tric, follo w-up No observ ation record ed. [email or web address] [facility] [address] [facility] [address], [place], [address], 11/10/2023 16:45:37 12/07/19 24 12/07/2023 imagi ng/di agnos tic resul t No observ ation record ed. [facility] [address] [facility], [place], [address], 12/11/2023 10:32:37 01/04/20 24 01/04/2024 imagi ng/di agnos tic resul t No observ ation record ed. [facility] [address] [facility], [place], [address], 01/07/2024 12:12:29 02/02/20 24 02/01/2024 US, obste tric, follo w-up No observ ation record ed. [email or web address] [facility] [address] [facility], [place], [address], 02/04/2024 10:30:16 02/10/20 24 02/10/2024 non-s tress test No observ ation record ed. [email or web address] [place] [address], [place], [address], 02/10/2024 11:58:14 02/10/20 24 02/10/2024 US, obste tric, bioph ysica l profi le + non-s tress test No observ ation record ed. [email or web address] [place] [address], [place], [address], 02/10/2024 12:45:48 02/10/20 24 02/10/2024 US, obste tric, bioph ysica l profi le + non-s tress test No observ ation record ed. [email or web address] [address], [place], [address], 02/10/2024 22:00:22 02/17/20 24 02/17/2024 US, obste tric, bioph ysica l profi le + non-s tress test No observ ation record ed. [email or web address] [place] [address], [place], [address], 02/17/2024 13:14:35 02/17/20 24 02/17/2024 US, obste tric, bioph ysica l profi le + non-s tress test No observ ation record ed. [email or web address] [address], [place], [address], 02/19/2024 01:03:22 02/17/20 24 02/17/2024 non-s tress test No observ ation record ed. [place] [address], [place], [address], 02/17/2024 18:46:39 02/17/20 non-s tress test No observ ation record ed. [email or web address] [place] [address], [place], [address], 02/17/2024 18:48:46 02/24/20 24 02/24/2024 US, obste tric, bioph ysica l profi le + non-s tress test No observ ation record ed. [facility] [address], [place], [address], 02/24/2024 14:24:08 02/24/20 24 02/24/2024 US, obste tric, follo w-up No observ ation record ed. [facility] [address], [place], [address], 02/24/2024 14:24:20 02/24/20 24 02/24/2024 US, obste tric, bioph ysica l profi le + non-s tress test No observ ation record ed. [email or web address] [address], [facility], [place], [address], 02/25/2024 11:50:17 02/24/20 24 02/24/2024 non-s tress test No observ ation record ed. [email or web address] [place] [address], [place], [address], 02/24/2024 12:00:12 03/01/20 24 02/29/2024 imagi ng/di agnos tic resul t No observ ation record ed. [facility] [address] [place] [address], [address], 03/01/2024 17:20:31 03/03/20 24 03/03/2024 US, obste tric, bioph ysica l profi le + non-s tress test No observ ation record ed. [email or web address] [place] [address], [place], [address], 03/03/2024 12:20:34 12/12/03/03/2024 US, obste tric, bioph ysica l profi le + non-s tress test No observ ation record ed. [email or web address] [address], [place], [address], 03/03/2024 20:54:47 03/03/20 24 03/03/2024 non-s tress test No observ ation record ed. [email or web address] [place] [address], [place], [address], 03/03/2024 14:58:50 03/08/20 24 03/07/2024 imagi ng/di agnos tic resul t No observ ation record ed. [facility] [address], [address], 03/09/2024 00:46:18 03/09/20 24 03/09/2024 non-s tress test No observ ation record ed. [email or web address] [place] [address], [place], [address], 03/09/2024 11:26:46 03/14/20 24 03/14/2024 imagi ng/di agnos tic resul t No observ ation record ed. [facility] [address], [address], 03/14/2024 13:30:26 03/17/20 24 03/14/2024 US, obste tric, follo w-up No observ ation record ed. [email or web address] [facility] [address], [address], 03/20/2024 15:27:00 Result Notes None recorded. Problems Name Problem SNOMED Code Status Onset Date Resolution Date Notes Provider Name and Address Organization Details Recorded Time 44288261 Active 2023 Jennie shah [place] - [facility] 4 12:13:08 Monosomy X 348852297 Active HR on NIPT, declined [facility] centesis HEIDI COLON MD [address], [place], [address], [facility] 4 12:18:50 Monosomy X 474723241 Active HR on NIPT, declined [facility]amnio centesis HEIDI COLON MD [address], [place], [address], [facility] 4 12:18:50 Body mass index 40+ - severely obese 669363852 Active weekly testing @34wks Jillian shah, [facility] 4 15:45:52 Problem Notes None recorded. Medical Equipment None Reported. Allergies No known drug allergies Medications Name Sig Start Date Stop Date Status Note LastModified by Organization Details LastModified Time Prescriptio n - Prior Authorizati on Request ADMINISTE R 0.5ML IN THE MUSCLE TODAY active Not Available Not Available No t Available albuterol sulfate 2.5 mg/3 mL (0.083 %) solution for nebulizatio n INHALE 1 VIAL VIA NEBULIZER EVERY 6 HOURS NEEDED 07/07 completed Not Available Not Available Not Available hydrocodone 5 mg-acetamin ophen 325 mg tablet 2023 active Not Available Not Available Not Avai lable ondansetron HCl 8 mg tablet TAKE 1 TABLET BY MOUTH EVERY 8 HOURS NEEDED active Not Available Not Available No t Available ondansetron 8 mg disintegrat ing tablet DISSOLVE 1 TABLET ON THE TONGUE EVERY 6 TO 8 HOURS NEEDED active Not Available Not Available No t Available cephalexin 500 mg capsule 07/06 completed Not Available Not Available Not Available ferrous sulfate 325 mg (65 mg iron) tablet Take 1 tablet every day by oral route. 2023 active Not Available Not Available Not Avai lable triamcinolo ne acetonide 0.1 % topical ointment APPLY TOPICALLY TO THE AFFECTED AREA TWICE DAILY FOR 14 DAYS 07/06 completed Not Available Not Available Not Available montelukast 10 mg tablet TAKE 1 TABLET BY MOUTH EVERY NIGHT AT BEDTIME 07/07 completed Not Available Not Available Not Available albuterol sulfate HFA 90 mcg/actuati on aerosol inhaler INHALE 2 PUFFS BY MOUTH EVERY 6 HOURS NEEDED active Not Available Not Available No t Available ferrous sulfate 325 mg (65 mg iron) tablet,josef yed release TAKE 1 TABLET BY MOUTH DAILY active Not Available Not Available No t Available nitrofurant oin monohydrate /macrocryst als 100 mg capsule 02/09 completed Not Available Not Available Not Available Flovent HFA 110 mcg/actuati on aerosol inhaler INHALE 2 PUFFS BY MOUTH TWICE DAILY 07/07 completed Not Available Not Available Not Available Symbicort 80 mcg-4.5 mcg/actuati on HFA aerosol inhaler INHALE 2 PUFFS BY MOUTH EVERY NIGHT AT BEDTIME 02/09 completed Not Available Not Available Not Available Estarylla 0.25 mg-35 mcg tablet TAKE 1 TABLET BY MOUTH EVERY DAY 07/07 completed Not Available Not Available Not Available Gummies 400 mcg-35 mg-25 mg-5 mg chewable tablet Take 1 tablet every day by oral route. 2023 active Not Available Not Available Not Avai lable WesTab Plus 27 mg iron-1 mg tablet TAKE 1 TABLET BY MOUTH EVERY DAY 02/09 completed Not Available Not Available Not Available Vitals Date Recorded Body height Body mass index (BMI) Body mass index (BMI) Percentile per age and sex Body weight Systolic blood pressure Diastolic blood pressure Provider Name and Address Organization Details Last Updated DateTime 4 162.56 cm 42.7 kg/m2 99.28 % 238007. 94340 g 116 mm[Hg] 70 mm[Hg] Tammie Haddad [facility] 14:25:23 Social History Question Answer Notes LastModified by Organizat ion Details LastModified Time Tobacco Smoking Status Never Smoker Susana shah, [facility] 2023 15:08:14 What Is Your Level Of Alcohol Consumption? None Information not available 2023 Are You Blind Or Do You Have Difficulty Seeing? No Information n ot available 2023 What Is Your Level Of Caffeine Consumption? Occasional Information not available 2023 How Much Tobacco Do You Chew? None Information not available 2023 In The 14 Days Before Symptom Onset, Have You Had Close Contact With A Laboratory-confirm ed COVID-19 While That Case Was Ill? No Information n ot available 2023 In The 14 Days Before Symptom Onset, Have You Had Close Contact With A Person Who Is Under Investigation For COVID-19 While That Person Was Ill? No Information not available 2023 Have You Been To An Area Known To Be High Risk For COVID-19? No Information not available 2023 Are You Deaf Or Do You Have Serious Difficulty Hearing? No Information not available 2023 What Is The Highest Grade Or Level Of School You Have Completed Or The Highest Degree You Have Received? [id number] Information not available 2023 Are There Any Guns Present In Your Home? No Information not available 2023 Do You Use Protection During Sex? No Information not available 2023 Do You Use Your Seat Belt Or Car Seat Routinely? Yes Information not available 2023 Do You Have Smoke And Carbon Monoxide Detectors In Your Home? Yes Information not available 2023 How Much Tobacco Do You Smoke? No Information not available 2023 Do You Feel Stressed (tense, Restless, Nervous, Or Anxious, Or Unable To Sleep At Night)? [id number] Information not available 2023 Do You Use Any Illicit Or Recreational Drugs? No Information not available 2023 Do You Use Sunscreen Routinely? No Information not available 2023 Have You Used IV Drugs? No Information not available 2023 Sex: Unknown Functional Status Question Answer Note LastModified by Organizat ion Details LastModified Time Do you have difficulty walking or climbing stairs? No [email or web address] Information not available 01/06/2024 Are you able to walk? YESWOREST Information not available 2023 Are you able to care for yourself? Yes [email or web address] Information not available 01/06/2024 Do you have difficulty dressing or bathing? No [email or web address] Information not available 01/06/2024 What is your exercise level? Moderate Information not available 2023 Mental Status None recorded. Family History Relationship Description Onset Age of this Age Resolved Age Notes LastModified by Organization Details LastModified Time Mother Essential hypertension [email or web address] Not available 11:50:07 Medical History Condition Response Allergies (Food, seasonal, environmental ) Y Other N Drug/Latex Allergies/Reactions N Breast Cancer N Blood Transfusion N Dermatologic Disorders N Lung Disease N Defects or Inherited Disease N Breast Problem N Gestational Diabetes N Hematologic disorders N Anesthesia Complications N History of STI N Deep Vein Thrombosis N Polycystic ovary syndrome N Anxiety Disorder N Autoimmune disease N Arthritis N Polyps N Infertility N Acid Reflux (GERD) N History of abnormal pap N Cancer N Varicosities N Stroke N Neurologic/Epilepsy N Endometriosis N High Cholesterol N Fibromyalgia N Headaches N Kidney Disease N Heart Problems N Thyroid Problems N Kidney or Bladder Problems N GI Problems N Eating Disorder N Anemia N Art (IVF or FET) N Psychiatric Illness N Ovarian Cancer N Pulmonary (TB, Asthma) N Hepatitis/Liver Disease N No Past Medical History N Eczema Y Urinary Tract Infection N Abuse/Domestic Violence N Asthma Y Trauma/Violence N Depression/ depression N Heart Disease N Pre-Eclampsia N Hypertension N Osteoporosis N Thrombophilias N Gynecological History Statement/Question Response Date of Last Mammogram Date of LMP 06/03/2023 On BCP's at Conception? N N Was last menstrual period normal Y STIs/STDs N HPV Vaccine N Current Control Method Are cycles usually normal Y Date of Last Colonoscopy Frequency of Cycle (Q days) 3 Sexually Active? Y None Menses Monthly Y Date of DEXA bone scan Age of first menstrual cycle 11 Date of Last Pap Smear Sexual Problems? N Desired Control Method None N Obstetrics History GPAL:G 1 P 0 0 0 0 Type Value Living 0 Total 1 Past Encounters Encounter ID Performer Location Encounter Start Date Encounter Closed Date Diagnosis/Indication Diagnosis SNOMED-CT Code Diagnosis ICD10 Code [id number] HEIDI COLON MD [place] [address] [address] 02/03/2024 10:35:23 02/03/2024 11:50:26 Nausea and vomiting 01213902 R11.2 Gestation period, 33 weeks 15368787 Z3A.33 Monosomy X 565263542 Q96 .9 [id number] [facility] [address],[place] [address] 02/10/2024 11:07:14 02/10/2024 12:40:48 Gestation period, 34 weeks 22736918 Z3A.34 Monosomy X 154041769 Q96 .9 [id number] Corin Vasquez [place] [address],[place] [address] 02/10/2024 11:06:55 02/10/2024 12:05:49 Maternal obesity complicating , childbirth and the puerperium, antepartum 5509755757 07 O99.215 [id number] [facility] [address],[place] [address] 02/10/2024 11:17:13 02/10/2024 12:10:38 Maternal obesity complicating , childbirth and the puerperium, antepartum 8005098183 07 O99.213 Z3A.34 [id number] [facility] [address],[place] [address] 02/17/2024 10:40:25 02/17/2024 11:08:31 Maternal obesity complicating , childbirth and the puerperium, antepartum 0662362693 07 O99.213 Z3A.35 [id number] Tammie Haddad [place] [address],[place] [address] 02/17/2024 10:40:37 02/20/2024 03:50:45 Maternal obesity complicating , childbirth and the puerperium, antepartum 5314309883 07 O99.213 [id number] Carlene Macias [facility] [address],[place] [address] 02/17/2024 10:41:04 02/17/2024 12:08:39 Gestation period, 35 weeks 83943903 Z3A.35 Anemia 451441086 D64.9 [id number] Anamaria Ibanez [place] [address],[place] [address] 02/24/2024 10:19:19 02/24/2024 11:26:08 Abnormal hematologic finding on screening of mother 719819426 O28.0 O99.210 O36.60X0 Z3A.36 [id number] [facility] [address],[place] [address] 02/24/2024 10:19:35 02/24/2024 12:16:41 Maternal obesity complicating , childbirth and the puerperium, antepartum 4235578306 07 O99.212 [id number] HEIDI COLON MD [place] [address],[place] [address] 02/24/2024 10:19:50 02/24/2024 12:29:46 Nausea and vomiting 68854515 R11.2 Monosomy X 388735102 Q96 .9 Maternal o besity complicating , childbirth and the puerperium, antepartum 9961602786 07 O99.212 Gestation period, 36 weeks 68652848 Z3A.36 [id number] Tyra Miller [place] [address],[place] [address] 03/03/2024 10:29:16 03/03/2024 10:58:26 Maternal obesity complicating , childbirth and the puerperium, antepartum 1868173428 07 O99.213 Z3A.37 [id number] Maude Peterson [place] [address],[place] [address] 03/03/2024 10:29:50 03/03/2024 15:01:11 Maternal obesity complicating , childbirth and the puerperium, antepartum 6292919577 07 O99.212 [id number] HEIDI COLON MD [place] [address],[place] [address] 03/04/2024 14:12:07 03/04/2024 14:52:49 Monosomy X 856168565 Q96.9 Maternal o besity complicating , childbirth and the puerperium, antepartum 8008936468 07 O99.212 Gestation period, 37 weeks 03023589 Z3A.37 Health Concerns Section Related Observation LastModified by Organization Detai ls LastModified Time None Recorded Concern Status LastModified by Organization Details LastModified Time None Recorded Payers Encounter Date Sequence Insurance Name Policy Number Policy Kraus Covered Member ID Kraus Member ID Guarantor Name 03/04/2024 1 [facility] (MEDICAID HMO) [id number] Loulou Chang [id number] Dudley Natarajan OBGyn Episode Ob Episode Information Episode Created Date Number of Fetuses Patient Bloodtype Patient rh Status Prepregnancy Weight lbs Domestic Partner Domestic Partner Phone Father Name Strategic Planning Consultant Status 09/08/19 1 O Positive 244.2 OPEN Fetus Data First Name Last Name Admitted to NICU Weight (g) Sex Living Outcome Pediatric Complications Fetus ID Race Codes Race Delivery Type [id number] Problems Problem Notes MFM: 09/13 with genetic couns elor & [employer] ultrasound, declined [facility]10/11 @945 US & 11/08 945 US [facility] Problem Name Start Date End Date Resolution Snomed Code Not e Body mass index 40+ - severely obese 583866650 weekly testin g @34wks Monosomy X 944313397 HR on NIP T, declined [facility]S/amniocentesis Angus Calculation ANGUS Calculation Method Initial Angus Date Initial Exam Date Initial Exam Provider Initial Ultrasound Date Last Menstrual Period Date Ultra Sound Weeks Gestation Conception by IVF Embryo Age at Transfer Date of Transfer 03/22/20 24 09/08/19 24 08/04/2023 06/03/2023 7 Eighteen To Twenty Week Angus Update Ultra Sound Date Fundal Height At Umbil Quickening Date Ultra Sound Latest Weeks Gestation Final Angus Confirmed By Final Angus Confirmed Date Final Angus Date Ultra Sound Latest Days Gestation 0 [email or web address] 09/08/2023 03/22/20 24 0 Pre-jerri Flowsheet Flowsheet Date 09/08/2023 Lewis Score Blood Edema Fundus Height Fundus Units Glucose Ketones Leukocytes Nitrite Labor Signs Protein Cervic Dilation Cervic Effacement Cervic Station Type Weight in lbs Pre/Post Dialysis Refused BP Diastolic BP Location Tested BP Systolic BP Type Fetus Heart Rate Present Fetus Movement Comments Flowsheet Date 09/08/2023 Lewis Score Blood Edema Fundus Height Fundus Units Glucose Ketones Leukocytes Nitrite Labor Signs Protein Cervic Dilation Cervic Effacement Cervic Station Type Weight in lbs Pre/Post Dialysis Refused Weight 237.752928626820 BP Diastolic BP Location Tested BP Systolic BP Type 66 100 Fetus Heart Rate Present A 165 Fetus Movement Comments Patient presents to [facility]. Nausea improved, no bleeding or cramping. complicated by high risk NIPT for monosomy X. Referral sent to [facility]. Discussed amniocentesis for diagnostic testing. Discussed risks of monosomy X. NT/NB wnl today. Other OB labs wnl. RTC 4 weeks, will follow up MFM referral. Flowsheet Date 10/07/2023 Lewis Score Blood Edema Fundus Height Fundus Units Glucose Ketones Leukocytes Nitrite Labor Signs Protein Cervic Dilation Cervic Effacement Cervic Station Type Weight in lbs Pre/Post Dialysis Refused Weight 236.668159823389 BP Diastolic BP Location Tested BP Systolic BP Type 72 116 Fetus Heart Rate Present A 160 Fetus Movement A No Comments Doing well, no movemen t yet. No cramping, bleeding or nausea. Saw M for HR Monosomy X on NIPT, declined [facility]S/amnio. Has follow up visit with them on Thursday. Discussed anatomy US with [facility], otherwise normal care in 4 weeks. Flowsheet Date 11/10/2023 Lewis Score Blood Edema Fundus Height Fundus Units Glucose Ketones Leukocytes Nitrite Labor Signs Protein Cervic Dilation Cervic Effacement Cervic Station Type Weight in lbs Pre/Post Dialysis Refused Weight 237.550180125282 BP Diastolic BP Location Tested BP Systolic BP Type 61 108 Fetus Heart Rate Present A 145 Fetus Movement A Yes Comments Baby moving well. Had anatom y US with [facility] yesterday, incomplete but normal visualized anatomy. Repeat in 4 weeks with [facility]. No cramping or bleeding. RTC 4 weeks. Flowsheet Date 12/09/2023 Lewis Score Blood Edema Fundus Height Fundus Units Glucose Ketones Leukocytes Nitrite Labor Signs Protein Cervic Dilation Cervic Effacement Cervic Station neg none trace Type Weight in lbs Pre/Post Dialysis Refused 238.104275796845 BP Diastolic BP Location Tested BP Systolic BP Type 75 L arm 111 sitting Fetus Heart Rate Present A 150 Fetus Movement A Yes Comments Pateint c/o of lower back pa in and lower pelvic pain. Discussed tylenol, ice/hot packs, and belly band. Good movement. Had repeat anatomy with MFM, all normal; EFW 90%, growth US scheduled for 4 weeks with MFM. Discussed GCT and labs for next visit. RTC 3-4 weeks. Flowsheet Date 01/06/2024 Lewis Score Blood Edema Fundus Height Fundus Units Glucose Ketones Leukocytes Nitrite Labor Signs Protein Cervic Dilation Cervic Effacement Cervic Station neg none none trace Type Weight in lbs Pre/Post Dialysis Refused 243.759115446530 BP Diastolic BP Location Tested BP Systolic BP Type 76 L arm 122 sitting Fetus Heart Rate Present Fetus Movement A Yes Comments Good movement. No cram ping or bleeding. Repeat growth with MFM, EFW 75%. Continue serial growth US per [facility]. GCT and labs today. Discussed tdap vaccine. Desires EIL on 03/15 as partner is going to basic training for the [employer]. Discussed SP commercial lending relationship manager, patient will make appointmetns with her to meet and discuss EIL. RTC 2 weeks. Flowsheet Date 01/20/2024 Lewis Score Blood Edema Fundus Height Fundus Units Glucose Ketones Leukocytes Nitrite Labor Signs Protein Cervic Dilation Cervic Effacement Cervic Station neg none none trace Type Weight in lbs Pre/Post Dialysis Refused Weight 246.710820877608 BP Diastolic BP Location Tested BP Systolic BP Type 74 L arm 110 sitting Fetus Heart Rate Present A 145 Fetus Movement A Yes Comments Good movement, no cram ping or bleeding. Discussed RSV vaccine, info given. Will plan for EIl on 03/15 with SP. MFM appointment mid January. Discussed anemia, will start Fe supplement. REcheck at 34 weeks. RTC 2 weeks Flowsheet Date 02/03/2024 Lewis Score Blood Edema Fundus Height Fundus Units Glucose Ketones Leukocytes Nitrite Labor Signs Protein Cervic Dilation Cervic Effacement Cervic Station neg none none trace Type Weight in lbs Pre/Post Dialysis Refused Weight 246.323126657853 BP Diastolic BP Location Tested BP Systolic BP Type 66 L arm 118 sitting Fetus Heart Rate Present Fetus Movement A Yes Comments Patient c/o of some nausea a nd [place]. No bleeding. Good movement. Had MFM appt yesterday, EFW 90%. Scheduled for repeat in 4 weeks to monitor growth. Getting RSV vaccine today. Having some increased nausea, will send zofran. RTC 2 weeks. Discussed preadmission. Flowsheet Date 02/10/2024 Lewis Score Blood Edema Fundus Height Fundus Units Glucose Ketones Leukocytes Nitrite Labor Signs Protein Cervic Dilation Cervic Effacement Cervic Station Type Weight in lbs Pre/Post Dialysis Refused BP Diastolic BP Location Tested BP Systolic BP Type Fetus Heart Rate Present Fetus Movement Comments Flowsheet Date 02/10/2024 Lewis Score Blood Edema Fundus Height Fundus Units Glucose Ketones Leukocytes Nitrite Labor Signs Protein Cervic Dilation Cervic Effacement Cervic Station Type Weight in lbs Pre/Post Dialysis Refused BP Diastolic BP Location Tested BP Systolic BP Type Fetus Heart Rate Present Fetus Movement Comments Flowsheet Date 02/10/2024 Lewis Score Blood Edema Fundus Height Fundus Units Glucose Ketones Leukocytes Nitrite Labor Signs Protein Cervic Dilation Cervic Effacement Cervic Station none Type Weight in lbs Pre/Post Dialysis Refused Weight 249.695013506889 BP Diastolic BP Location Tested BP Systolic BP Type 76 121 Fetus Heart Rate Present Fetus Movement A Yes Comments Patient is having pain and d ischarge. +FM bpp 12/30 IOL on 03/14 at 1700 discussed cytotec and pitocin, precautions reviewed has growth us scheduled, f/u one week Flowsheet Date 02/17/2024 Lewis Score Blood Edema Fundus Height Fundus Units Glucose Ketones Leukocytes Nitrite Labor Signs Protein Cervic Dilation Cervic Effacement Cervic Station Type Weight in lbs Pre/Post Dialysis Refused BP Diastolic BP Location Tested BP Systolic BP Type Fetus Heart Rate Present Fetus Movement Comments Flowsheet Date 02/17/2024 Lewis Score Blood Edema Fundus Height Fundus Units Glucose Ketones Leukocytes Nitrite Labor Signs Protein Cervic Dilation Cervic Effacement Cervic Station Type Weight in lbs Pre/Post Dialysis Refused Weight 247.821026307822 BP Diastolic BP Location Tested BP Systolic BP Type 77 122 Fetus Heart Rate Present Fetus Movement Comments Flowsheet Date 02/17/2024 Lewis Score Blood Edema Fundus Height Fundus Units Glucose Ketones Leukocytes Nitrite Labor Signs Protein Cervic Dilation Cervic Effacement Cervic Station none Type Weight in lbs Pre/Post Dialysis Refused Weight 247.317902986711 BP Diastolic BP Location Tested BP Systolic BP Type 247 122 Fetus Heart Rate Present Fetus Movement A Yes Comments Patient is having some cramp ing. bpp 10/10, needs iron refill, precautions and education iol scheduled, plan gbs next week Flowsheet Date 02/24/2024 Lewis Score Blood Edema Fundus Height Fundus Units Glucose Ketones Leukocytes Nitrite Labor Signs Protein Cervic Dilation Cervic Effacement Cervic Station Type Weight in lbs Pre/Post Dialysis Refused BP Diastolic BP Location Tested BP Systolic BP Type Fetus Heart Rate Present Fetus Movement Comments Flowsheet Date 02/24/2024 Lewis Score Blood Edema Fundus Height Fundus Units Glucose Ketones Leukocytes Nitrite Labor Signs Protein Cervic Dilation Cervic Effacement Cervic Station Type Weight in lbs Pre/Post Dialysis Refused BP Diastolic BP Location Tested BP Systolic BP Type Fetus Heart Rate Present Fetus Movement Comments Flowsheet Date 02/24/2024 Lewis Score Blood Edema Fundus Height Fundus Units Glucose Ketones Leukocytes Nitrite Labor Signs Protein Cervic Dilation Cervic Effacement Cervic Station neg none 0cm 50% -3 Type Weight in lbs Pre/Post Dialysis Refused Weight 248.709872140080 BP Diastolic BP Location Tested BP Systolic BP Type 71 L arm 116 sitting Fetus Heart Rate Present A 154 Fetus Movement A Yes Comments Patient c/o of lower pains a nd pressure. Good movement. No ctx, LOF, VB. BPP 8/10, off for practice breathing. EFW 90%, normal fluid. GBS collected today. RTC 1 week. Flowsheet Date 03/03/2024 Lewis Score Blood Edema Fundus Height Fundus Units Glucose Ketones Leukocytes Nitrite Labor Signs Protein Cervic Dilation Cervic Effacement Cervic Station Type Weight in lbs Pre/Post Dialysis Refused BP Diastolic BP Location Tested BP Systolic BP Type Fetus Heart Rate Present Fetus Movement Comments Flowsheet Date 03/03/2024 Lewis Score Blood Edema Fundus Height Fundus Units Glucose Ketones Leukocytes Nitrite Labor Signs Protein Cervic Dilation Cervic Effacement Cervic Station Type Weight in lbs Pre/Post Dialysis Refused BP Diastolic BP Location Tested BP Systolic BP Type Fetus Heart Rate Present Fetus Movement Comments Flowsheet Date 03/04/2024 Lewis Score Blood Edema Fundus Height Fundus Units Glucose Ketones Leukocytes Nitrite Labor Signs Protein Cervic Dilation Cervic Effacement Cervic Station none 0cm 50% -3 Type Weight in lbs Pre/Post Dialysis Refused 249.239908689537 BP Diastolic BP Location Tested BP Systolic BP Type 70 116 Fetus Heart Rate Present A 145 Fetus Movement A Yes Comments Doing well, good movem ent. No cramping or bleeding. BPP 10/10 yesterday. GBS negative. SVE 0.5cm. Labor precautions reviewed. RTC 1 week. Flowsheet Date 03/09/2024 Lewis Score Blood Edema Fundus Height Fundus Units Glucose Ketones Leukocytes Nitrite Labor Signs Protein Cervic Dilation Cervic Effacement Cervic Station Type Weight in lbs Pre/Post Dialysis Refused BP Diastolic BP Location Tested BP Systolic BP Type Fetus Heart Rate Present Fetus Movement Comments Flowsheet Date 03/09/2024 Lewis Score Blood Edema Fundus Height Fundus Units Glucose Ketones Leukocytes Nitrite Labor Signs Protein Cervic Dilation Cervic Effacement Cervic Station Type Weight in lbs Pre/Post Dialysis Refused BP Diastolic BP Location Tested BP Systolic BP Type Fetus Heart Rate Present Fetus Movement Comments Flowsheet Date 03/09/2024 Lewis Score Blood Edema Fundus Height Fundus Units Glucose Ketones Leukocytes Nitrite Labor Signs Protein Cervic Dilation Cervic Effacement Cervic Station neg none Type Weight in lbs Pre/Post Dialysis Refused Weight 248.288898388983 BP Diastolic BP Location Tested BP Systolic BP Type 74 L arm 118 sitting Fetus Heart Rate Present A 140 Fetus Movement A Yes Comments Good movement. No ctx, LOF, VB. Will move induction from 03/15 to 03/16 due to staffing issues at [facility]. BPP 8/8 at [facility] Thursday, NST reactive today. Labor precautions reviewed. Menstrual History Last Menstrual Date Menses Monthly On Bcp Conception Prior Menses Frequency Hcg Plus Date Menarche Onset Age 0306/03/2023 Genetic Screening And Infection History Question Response Note Mental Retardation/Autism false Patient's Age Will Be 35 Years Or Older At Estim ated Date of Delivery false Thalassemia (Albanian, English, Mediterranean, Or Background): MCV < 80 false Neural Tube Defect (Meningomyelocele, Spina Bifi da, Or Anencephaly) false Congenital Heart Defect false Down Syndrome false Ben-Sachs (eg, Temple, Cajun, Korean-Turkish) f alse Juve Disease false Sickle Cell Disease Or Trait () false Hemophilia Or Other Blood Disorders false Muscular Dystrophy false Cystic Fibrosis false Medhat's [place] false Intellectual Disability/Autism false If Yes, Was Person Tested For Fragile X? false Other Inherited Genetic Or Chromosomal Disorder false Maternal Metabolic Disorder (eg, Type 1 Diabetes , PKU) false Patient Or Baby's Father Had A Child With Defects Not Listed Above false Recurrent Loss, Or A Stillbirth false Medications (including Suppl ements, Vitamins, Herbs, OTC Drugs), Illicit/Recreational Drugs, Alcohol false If Yes, Agent(s) And Strength/Dosage false Any Other Genetic History false Live With Someone With TB Or Exposed To TB false Patient Or Partner Has History Of Genital Herpes false Rash Or Viral Illness Since Last Menstrual Perio d false History Of STD, Gonorrhea, Chlamydia, HPV, Syphi lis false Other Infection History false History of HIV false History of Hepatitis false Prior GBS-infected child false Hemoglobinopathy Or Carrier false Other Structural Defect false Recent Travel History Outside of Country false Delivery Information Delivery Date Delivery Type Labor Anesthesia Weeks Gestation Incision Type Labor Labor Length Hrs Delivered By Post Complications Tubal Sterilization Discharge Date Comments Discharge Information Feeding Method Contraceptive Method Maternal HG B and HCT Levels
--- OUTSIDE RECORDS SUMMARY | 2024-03-24 00:24 | XMS_ITS | Continuity of Care Document ---
Author Organization [facility] [place] Address [address] [place] [address] Assessment No assessment recorded. Plan of Treatment Reminders Order Date Submit Date Provider Last Modified By Organization Details Last Modified Time Details Appointments SURG POST OP 025 10:45AM HEIDI COLON MD Not available Not available Not available Lab None record ed. Referral None record ed. Procedures None record ed. Surgeries None record ed. Imaging non-st ress test 024 03/03/20 24 [email or web address] [place], [address], [place], [address], 03/05/2024 01:17:07 Medication Orders None record ed. Patient TargetsNo targets recorded. Patient InstructionsNo instructions recorded. Reason for Referral None Reported. Results Created Date Observation Date Name Description Value Unit Range Abnormal Flag Note LastModifiedBy Organization Detail LastModifiedTime 09/08/19 24 09/08/2023 US, obste tric, nucha l trans lucen cy No observ ation record ed. RENO [address], [place], [address], 09/10/2023 10:53:56 09/08/19 24 09/08/2023 US, obste tric, nucha l trans lucen cy No observ ation record ed. [email or web address] [place] [address], [place], [address], 09/08/2023 13:17:08 09/14/19 24 09/14/2023 US, obste tric, follo w-up No observ ation record ed. [email or web address] [facility] [address] [facility] [address] [facility], [place], [address], 09/16/2023 14:33:23 09/14/19 24 09/14/2023 US, obste tric, trans abdom inal No observ ation record ed. [email or web address] [facility] [address], [place], [address], 09/15/2023 15:09:15 10/12/19 24 10/12/2023 US, obste tric No observ ation record ed. [address] [facility] [address], [place], [address], 10/13/2023 16:44:42 11/09/19 24 11/09/2023 US, obste tric, follo w-up No observ ation record ed. [email or web address] [facility] [address], [place], [address], 11/10/2023 16:45:37 12/07/19 24 12/07/2023 imagi ng/di agnos tic resul t No observ ation record ed. [facility] [address], [place], [address], 12/11/2023 10:32:37 01/04/20 24 01/04/2024 imagi ng/di agnos tic resul t No observ ation record ed. [facility] [address], [place], [address], 01/07/2024 12:12:29 02/02/20 24 02/01/2024 US, obste tric, follo w-up No observ ation record ed. [email or web address] [facility] [address], [place], [address], 02/04/2024 10:30:16 02/10/20 24 02/10/2024 non-s tress test No observ ation record ed. [email or web address] [place] [address], [place], [address], 02/10/2024 11:58:14 02/10/20 24 02/10/2024 US, obste tric, bioph ysica l profi le + non-s tress test No observ ation record ed. [email or web address] [place] [address], [place], [address], 02/10/2024 12:45:48 02/10/20 24 02/10/2024 US, obste tric, bioph ysica l profi le + non-s tress test No observ ation record ed. [email or web address] [address], [place], [address], 02/10/2024 22:00:22 02/17/20 24 02/17/2024 US, obste tric, bioph ysica l profi le + non-s tress test No observ ation record ed. [email or web address] [place] [address], [place], [address], 02/17/2024 13:14:35 02/17/20 24 02/17/2024 US, obste tric, bioph ysica l profi le + non-s tress test No observ ation record ed. [email or web address] [address], [place], [address], 02/19/2024 01:03:22 02/17/20 24 02/17/2024 non-s tress test No observ ation record ed. [email or web address] [place] [address], [place], [address], 02/17/2024 18:46:39 02/17/20 non-s tress test No observ ation record ed. [email or web address] [place] [address], [place], [address], 02/17/2024 18:48:46 02/24/20 24 02/24/2024 US, obste tric, bioph ysica l profi le + non-s tress test No observ ation record ed. [place] [address], [place], [address], 02/24/2024 14:24:08 02/24/20 24 02/24/2024 US, obste tric, follo w-up No observ ation record ed. [place] [address], [place], [address], 02/24/2024 14:24:20 02/24/20 24 02/24/2024 US, obste tric, bioph ysica l profi le + non-s tress test No observ ation record ed. [email or web address] [address] [facility], [place], [address], 02/25/2024 11:50:17 02/24/20 24 02/24/2024 non-s tress test No observ ation record ed. [email or web address] [place] [address], [place], [address], 02/24/2024 12:00:12 03/01/20 24 02/29/2024 imagi ng/di agnos tic resul t No observ ation record ed. [facility] [address] [place] [address], [address], 03/01/2024 17:20:31 03/03/20 24 03/03/2024 US, obste tric, bioph ysica l profi le + non-s tress test No observ ation record ed. [email or web address] [place] [address], [place], [address], 03/03/2024 12:20:34 03/03/20 24 03/03/2024 US, obste tric, bioph ysica l profi le + non-s tress test No observ ation record ed. [email or web address] [address], [place], [address], 03/03/2024 20:54:47 03/03/20 24 03/03/2024 non-s tress test No observ ation record ed. [email or web address] [place] [address], [place], [address], 03/03/2024 14:58:50 03/08/20 24 03/07/2024 imagi ng/di agnos tic resul t No observ ation record ed. [facility] [address], [address], 03/09/2024 00:46:18 03/09/20 24 03/09/2024 non-s tress test No observ ation record ed. [email or web address] [place] [address], [place], [address], 03/09/2024 11:26:46 03/14/20 24 03/14/2024 imagi ng/di agnos tic resul t No observ ation record ed. [facility] [address], [address], 03/14/2024 13:30:26 03/17/20 24 03/14/2024 US, obste tric, follo w-up No observ ation record ed. [email or web address] [facility] [address] [place] [address], [address], 03/20/2024 15:27:00 Result Notes None recorded. Problems Name Problem SNOMED Code Status Onset Date Resolution Date Notes Provider Name and Address Organization Details Recorded Time 89641421 Active 2023 Jennie Grossman [facility] 4 12:13:08 Monosomy X 954115438 Active HR on NIPT, declined CVS/amnio centesis HEIDI COLON MD [address], [place], [address], [facility] 4 12:18:50 Monosomy X 558431051 Active HR on NIPT, declined CVS/amnio centesis HEIDI COLON MD [address], [place], [address], [facility] 4 12:18:50 Body mass index 40+ - severely obese 361266809 Active weekly testing @34wks Jillian Morin [facility] 4 15:45:52 Problem Notes None recorded. Procedures Surgical History None recorded. Imaging Results Imaging Date Name Status LastModified by Organiz ation Details LastModified Time 03/03/2024 non-stress test completed [email or web address] [place] [address], [place], [address], 03/03/2024 14:58:50 Procedure Notes None recorded. Medical Equipment None Reported. [...] Not Available Not Available Not Available Vitals None Recorded Social History Question Answer Notes LastModified by Organizat ion Details LastModified Time Tobacco Smoking Status Never Smoker Susana Dove [facility], [place] - [facility] 2023 15:08:14 What Is Your Level [...] Or The Highest Degree You Have Received? [id number] Information not available 2023 Are There Any [...] Anxious, Or Unable To Sleep At Night)? [id number] Information not available 2023 Do You Use Any Illicit Or Recreational Drugs? No Information not available 2023 Do You Use Sunscreen Routinely? No Information not available 2023 Have You Used IV Drugs? No Information not available 2023 Sex: Unknown Functional Status Question Answer Note LastModified by Organizat ion Details LastModified Time Do you have difficulty walking or climbing stairs? No [email or web address] Information not available 01/06/2024 Are you able to walk? YESWOREST [email or web address] Information not available 2023 Are you able to care for yourself? Yes [email or web address] Information not available 01/06/2024 Do you have difficulty dressing or bathing? No Information not available 01/06/2024 What is your exercise level? Moderate Information not available 2023 Mental Status None recorded. Family History Relationship Description Onset Age of this Age Resolved Age Notes LastModified by Organization Details LastModified Time Mother Essential hypertension [email or web address] Not available 11:50:07 Medical History Condition Response Other N Blood Transfusion N Dermatologic Disorders N Gestational Diabetes N Anxiety Disorder N Autoimmune disease N Arthritis N Polyps N Infertility N Acid Reflux (GERD) N Cancer N Varicosities N Stroke N Neurologic/Epilepsy N Fibromyalgia N Headaches N Kidney Disease N Heart Problems N Kidney or Bladder Problems N Eating Disorder N Art (IVF or FET) N Hepatitis/Liver Disease N No Past Medical History N Urinary Tract Infection N Asthma Y Trauma/Violence N Thrombophilias N Allergies (Food, seasonal, environmental ) Y Breast Cancer N Drug/Latex Allergies/Reactions N Lung Disease N Defects or Inherited Disease N Breast Problem N Hematologic disorders N Anesthesia Complications N History of STI N Deep Vein Thrombosis N Polycystic ovary syndrome N History of abnormal pap N Endometriosis N High Cholesterol N Thyroid Problems N GI Problems N Anemia N Psychiatric Illness N Ovarian Cancer N Pulmonary (TB, Asthma) N Eczema Y Abuse/Domestic Violence N Depression/ depression N Heart Disease N Pre-Eclampsia N Hypertension N Osteoporosis N Gynecological History Statement/Question Response Date of [...] Diagnosis/Indication Diagnosis SNOMED-CT Code Diagnosis ICD10 Code 858931 HEIDI COLON MD [place] [address],[place] [address] 02/03/2024 10:35:23 02/03/2024 11:50:26 Nausea and vomiting 69449707 R11.2 Gestation period, 33 weeks 90408950 Z3A.33 Monosomy X 532261762 Q96 .9 [id number] [facility] [address],[place] [address] 02/10/2024 11:07:14 02/10/2024 12:40:48 Gestation period, 34 weeks 70303840 Z3A.34 Monosomy X 670177480 Q96 .9 [id number] Corin Vasquez [place] [address],[place] [address] 02/10/2024 11:06:55 02/10/2024 12:05:49 Maternal obesity complicating , childbirth and the puerperium, antepartum 9413943694 07 O99.215 [id number] [facility] [address],[place] [address] 02/10/2024 11:17:13 02/10/2024 12:10:38 Maternal obesity complicating , childbirth and the puerperium, antepartum 8540490067 07 O99.213 Z3A.34 [id number] [facility] [address],[place] [address] 02/17/2024 10:40:25 02/17/2024 11:08:31 Maternal obesity complicating , childbirth and the puerperium, antepartum 5583934937 07 O99.213 Z3A.35 [id number] Tammie Haddad [place] [address],[place] [address] 02/17/2024 10:40:37 02/20/2024 03:50:45 Maternal obesity complicating , childbirth and the puerperium, antepartum 2340978040 07 O99.213 [id number] Carlene Macias CNM [place] [address],[place] [address] 02/17/2024 10:41:04 02/17/2024 12:08:39 Gestation period, 35 weeks 36573771 Z3A.35 Anemia 759604751 D64.9 [id number] Anamaria Ibanez [place] [address],[place] [address] 02/24/2024 10:19:19 02/24/2024 11:26:08 Abnormal hematologic finding on screening of mother 575649535 O28.0 O99.210 O36.60X0 Z3A.36 [id number] Maude Peterson [place] [address],[place] [address] 02/24/2024 10:19:35 02/24/2024 12:16:41 Maternal obesity complicating , childbirth and the puerperium, antepartum 5916768107 07 O99.212 [id number] HEIDI COLON MD [place] [address],[place] [address] 02/24/2024 10:19:50 02/24/2024 12:29:46 Nausea and vomiting 31379306 R11.2 Monosomy X 846627034 Q96 .9 Maternal o besity complicating , childbirth and the puerperium, antepartum 2278778165 07 O99.212 Gestation period, 36 weeks 60207755 Z3A.36 [id number] Tyra Miller [place] [address],[place] [address] 03/03/2024 10:29:16 03/03/2024 10:58:26 Maternal obesity complicating , childbirth and the puerperium, antepartum 0385034756 07 O99.213 Z3A.37 [id number] Maude Peterson [place] [address],[place] [address] 03/03/2024 10:29:50 03/03/2024 15:01:11 Maternal obesity complicating , childbirth and the puerperium, antepartum 6876717030 07 O99.212 Health Concerns Section Related Observation LastModified by Organization Detai ls LastModified Time None Recorded Concern Status LastModified by Organization Details LastModified Time None Recorded Payers Encounter Date Sequence Insurance Name Policy Number Policy Kraus Covered Member ID Kraus Member ID Guarantor Name 03/03/2024 1 [facility] (MEDICAID HMO) [id number] Loulou Chang [id number] Dudley Natarajan OBGyn Episode Ob Episode Information Episode Created Date Number of Fetuses Patient Bloodtype Patient rh Status Prepregnancy Weight lbs Domestic Partner Domestic Partner Phone Father Name Professor Of Economics Status 09/08/19 24 1 O Positive 244.2 OPEN Fetus Data First Name Last Name Admitted to NICU Weight (g) Sex Living Outcome Pediatric Complications Fetus ID Race Codes Race Delivery Type [id number] Problems Problem Notes MFM: 09/13 with genetic couns elor & [employer] ultrasound, declined CVS10/11 @945 US & 11/08 945 US [facility] ST[facility] Problem Name Start Date End Date Resolution Snomed Code Not e Body mass index 40+ - severely obese 029747695 weekly testin g @34wks Monosomy X 776019583 HR on NIP T, declined CVS/amniocentesis Angus [...] Date Ultra Sound Latest Days Gestation 0 [email or web address] 09/08/2023 03/22/20 24 0 Pre-jerri Flowsheet Flowsheet [...] Weight in lbs Pre/Post Dialysis Refused Weight 237.570402443231 BP Diastolic BP Location Tested BP Systolic BP Type 66 100 Fetus Heart Rate Present A 165 Fetus Movement Comments Patient presents to [facility] care. Nausea improved, no bleeding or cramping. complicated by high risk NIPT for monosomy X. Referral sent to [facility]. Discussed amniocentesis for diagnostic testing. Discussed risks of monosomy X. NT/NB wnl today. Other OB labs wnl. RTC 4 weeks, will follow up M referral. Flowsheet Date 10/07/2023 Lewis Score Blood Edema Fundus Height Fundus Units Glucose Ketones Leukocytes Nitrite Labor Signs Protein Cervic Dilation Cervic Effacement Cervic Station Type Weight in lbs Pre/Post Dialysis Refused Weight 236.963778754374 BP Diastolic BP Location Tested BP Systolic BP Type 72 116 Fetus Heart Rate Present A 160 Fetus Movement A No Comments Doing well, no movemen t yet. No cramping, bleeding or nausea. Saw MFM for HR Monosomy X on NIPT, declined CVS/amnio. Has follow up visit with them on Thursday. Discussed anatomy US with [facility], otherwise normal care in 4 weeks. Flowsheet Date 11/10/2023 Lewsi Score Blood Edema Fundus Height Fundus Units Glucose Ketones Leukocytes Nitrite Labor Signs Protein Cervic Dilation Cervic Effacement Cervic Station Type Weight in lbs Pre/Post Dialysis Refused Weight 237.023982904265 BP Diastolic BP Location Tested BP Systolic BP Type 61 108 Fetus Heart Rate Present A 145 Fetus Movement A Yes Comments Baby moving well. Had anatom y US with [facility] yesterday, incomplete but normal visualized anatomy. Repeat in 4 weeks with M. No cramping or bleeding. RTC 4 weeks. Flowsheet Date 12/09/2023 Lewis Score Blood Edema Fundus Height Fundus Units Glucose Ketones Leukocytes Nitrite Labor Signs Protein Cervic Dilation Cervic Effacement Cervic Station neg none trace Type Weight in lbs Pre/Post Dialysis Refused 238.672573992402 BP Diastolic BP Location Tested BP Systolic [...] Type Weight in lbs Pre/Post Dialysis Refused 243.647174532315 BP Diastolic BP Location Tested BP Systolic BP Type 76 L arm 122 sitting Fetus Heart Rate Present Fetus Movement A Yes Comments Good movement. No cram ping or bleeding. Repeat growth with MFM, EFW 75%. Continue serial growth US per [facility]. GCT and labs today. Discussed tdap vaccine. Desires EIL on 03/15 as partner is going to basic training for the [employer]. Discussed SP care consultant, patient will make appointmetns with her to meet and discuss EIL. RTC 2 weeks. Flowsheet Date 01/20/2024 Lewis Score Blood Edema Fundus Height Fundus Units Glucose Ketones Leukocytes Nitrite Labor Signs Protein Cervic Dilation Cervic Effacement Cervic Station neg none none trace Type Weight in lbs Pre/Post Dialysis Refused Weight 246.489183255293 BP Diastolic BP Location Tested BP Systolic [...] Weight in lbs Pre/Post Dialysis Refused Weight 246.559958366625 BP Diastolic BP Location Tested BP Systolic BP Type 66 L arm 118 sitting Fetus Heart Rate Present Fetus Movement A Yes Comments Patient c/o of some nausea a nd [place]. No bleeding. Good movement. Had MFM [...] Weight in lbs Pre/Post Dialysis Refused Weight 249.853493907043 BP Diastolic BP Location Tested BP Systolic BP Type 76 121 Fetus Heart Rate Present Fetus Movement A Yes Comments Patient is having pain and d ischarge. +FM bpp 10/ IOL on 03/14 at 1700 discussed cytotec [...] Weight in lbs Pre/Post Dialysis Refused Weight 247.897201071768 BP Diastolic BP Location Tested BP Systolic BP Type 77 122 Fetus Heart Rate Present Fetus Movement Comments Flowsheet Date 02/17/2024 Lewis Score Blood Edema Fundus Height Fundus Units Glucose Ketones Leukocytes Nitrite Labor Signs Protein Cervic Dilation Cervic Effacement Cervic Station none Type Weight in lbs Pre/Post Dialysis Refused Weight 247.099302215652 BP Diastolic BP Location Tested BP Systolic [...] Weight in lbs Pre/Post Dialysis Refused Weight 248.081815339125 BP Diastolic BP Location Tested BP Systolic BP Type 71 L arm 116 sitting Fetus Heart Rate Present A 154 Fetus Movement A Yes Comments Patient c/o of lower pains a nd pressure. Good movement. No ctx, LOF, VB. BPP 10/30, off for practice breathing. EFW 90%, normal [...] Type Weight in lbs Pre/Post Dialysis Refused 249.930159399919 BP Diastolic BP Location Tested BP Systolic [...] Weight in lbs Pre/Post Dialysis Refused Weight 248.911098876379 BP Diastolic BP Location Tested BP Systolic BP Type 74 L arm 118 sitting Fetus Heart Rate Present A 140 Fetus Movement A Yes Comments Good movement. No ctx, LOF, VB. Will move induction from 03/15 to 03/16 due to staffing issues at [place]. BPP 8/8 at [facility] Thursday, NST reactive today. Labor precautions reviewed. Menstrual History Last Menstrual Date Menses Monthly On Bcp Conception Prior Menses Frequency Hcg Plus Date Menarche Onset Age 0306/03/2023 Genetic Screening And Infection History Question Response Note Mental Retardation/Autism false Patient's Age Will Be 35 Years Or Older At Estim ated Date of Delivery false Thalassemia (Spanish, Anguillan, Mediterranean, Or Background): MCV < 80 false Neural Tube Defect (Meningomyelocele, Spina Bifi da, Or Anencephaly) false Congenital Heart Defect false Down Syndrome false Ben-Sachs (eg, Judaism, Cajun, Hungarian-Qatari) f alse Juve Disease false Sickle Cell Disease Or Trait () false Hemophilia Or Other Blood Disorders false Muscular Dystrophy false Cystic Fibrosis false [employer]'s Chorea false Intellectual Disability/Autism false If Yes, [...]
--- OUTSIDE RECORDS SUMMARY | 2024-03-24 00:24 | XMS_ITS | Continuity of Care Document ---
Author Organization [facility] Address [address] [place] [address] Assessment Encounter Date Assessment Date Assessment LastModified by Organization Details LastModified Time 03/09/2024 03/09/2024 Patient is ___weeks . Discussed plan. [email or web address] Not available 03/09/2024 11:20:49 Plan of Treatment Reminders Order Date Submit [...] [email or web address] cy No observ ation record ed. RENOEARNEST [address], [place], [address], 09/10/2023 10:53:56 09/08/19 24 09/08/2023 US, obste tric, nucha l trans lucen cy No observ ation record ed. [email or web address] [facility] [address], [place], [address], 09/08/2023 13:17:08 09/14/19 24 09/14/2023 US, obste tric, follo w-up No observ ation record ed. [email or web address] [facility] [address], [place], [address], 09/16/2023 14:33:23 09/14/19 24 09/14/2023 US, obste tric, trans abdom inal No observ ation record ed. [email or web address] [facility] [address], [place], [address], 09/15/2023 15:09:15 10/12/19 24 10/12/2023 US, obste tric No observ ation record ed. [email or web address] [facility] [address], [place], [address], 10/13/2023 16:44:42 11/09/19 24 11/09/2023 US, obste tric, follo w-up No observ ation record ed. [email or web address] [facility] [address], [place], [address], 11/10/2023 16:45:37 12/07/19 24 12/07/2023 imagi ng/di agnos tic resul t No observ ation record ed. [facility] [address], [place], [address], 12/11/2023 10:32:37 01/04/20 24 01/04/2024 imagi ng/di agnos tic resul t No observ ation record ed. [facility] [address], [place], [address], 01/07/2024 12:12:29 02/02/20 24 02/01/2024 US, obste tric, follo w-up No observ ation record ed. [email or web address] [facility] [address], [place], [address], 02/04/2024 10:30:16 02/10/20 24 02/10/2024 non-s tress test No observ ation record ed. [email or web address] [facility] [address], [place], [address], 02/10/2024 11:58:14 02/10/20 24 02/10/2024 US, obste tric, bioph ysica l profi le + non-s tress test No observ ation record ed. [email or web address] [facility] [address], [place], [address], 02/10/2024 12:45:48 02/10/20 24 02/10/2024 US, obste tric, bioph ysica l profi le + non-s tress test No observ ation record ed. [email or web address] [facility] [address], [place], [address], 02/10/2024 22:00:22 02/17/20 24 02/17/2024 US, obste tric, bioph ysica l profi le + non-s tress test No observ ation record ed. [email or web address] [facility] [address], [place], [address], 02/17/2024 13:14:35 02/17/20 24 02/17/2024 US, obste tric, bioph ysica l profi le + non-s tress test No observ ation record ed. [email or web address] [facility] [address], [place], [address], 02/19/2024 01:03:22 02/17/20 24 02/17/2024 non-s tress test No observ ation record ed. [email or web address] [facility] [address], [place], [address], 02/17/2024 18:46:39 02/17/20 non-s tress test No observ ation record ed. [email or web address] [facility] [address], [place], [address], 02/17/2024 18:48:46 02/24/20 24 02/24/2024 US, obste tric, bioph ysica l profi le + non-s tress test No observ ation record ed. [facility] [address], [place], [address], 02/24/2024 14:24:08 02/24/20 24 02/24/2024 US, obste tric, follo w-up No observ ation record ed. [facility] [address], [place], [address], 02/24/2024 14:24:20 02/24/20 24 02/24/2024 US, obste tric, bioph ysica l profi le + non-s tress test No observ ation record ed. [email or web address] [facility] [address], [place], [address], 02/25/2024 11:50:17 02/24/20 24 02/24/2024 non-s tress test No observ ation record ed. [facility] [address], [place], [address], 02/24/2024 12:00:12 03/01/20 24 02/29/2024 imagi ng/di agnos tic resul t No observ ation record ed. [facility] [address] [place] [address], [address], 03/01/2024 17:20:31 03/03/20 24 03/03/2024 US, obste tric, bioph ysica l profi le + non-s tress test No observ ation record ed. [email or web address] [facility] [address], [place], [address], 03/03/2024 12:20:34 03/03/20 24 03/03/2024 US, obste tric, bioph ysica l profi le + non-s tress test No observ ation record ed. [email or web address] [facility] [address], [place], [address], 03/03/2024 20:54:47 03/03/20 24 03/03/2024 non-s tress test No observ ation record ed. [email or web address] [facility] [address], [place], [address], 03/03/2024 14:58:50 03/08/20 24 03/07/2024 imagi ng/di agnos tic resul t No observ ation record ed. [facility] [address], [address], 03/09/2024 00:46:18 03/09/20 24 03/09/2024 non-s tress test No observ ation record ed. [email or web address] [facility] [address], [place], [address], 03/09/2024 11:26:46 03/14/20 24 03/14/2024 imagi ng/di agnos tic resul t No observ ation record ed. [facility] [address], [address], 03/14/2024 13:30:26 03/17/20 24 03/14/2024 US, obste tric, follo w-up No observ ation record ed. [email or web address] [facility] [address], [address], 03/20/2024 15:27:00 Result Notes None recorded. Problems Name Problem SNOMED Code Status Onset Date Resolution Date Notes Provider Name and Address Organization Details Recorded Time 29254973 Active 2023 Jennierobin Hugginssharri shah, [facility] 4 12:13:08 Monosomy X 369943071 Active HR on NIPT, declined CVS/amnio centesis HEIDI COLON MD [address], [place], [address], [facility] 4 12:18:50 Monosomy X 663840383 Active HR on NIPT, declined CVS/amnio centesis HEIDI COLON MD [address], [place], [address], [facility] 4 12:18:50 Body mass index 40+ - severely obese 426524903 Active weekly testing @34wks Jillian shah, [facility] 4 15:45:52 Problem Notes None recorded. [...] Recorded Body height Body mass index (BMI) Percentile per age and sex Body mass index (BMI) Body weight Systolic blood pressure Diastolic blood pressure Provider Name and Address Organization Details Last Updated DateTime 4 162.56 cm 99.24 % 42.6 kg/m2 520084. 91 g 118 mm[Hg] 74 mm[Hg] Maude Peterson [facility] 11:21:38 Social History Question Answer Notes LastModified by Organizat ion Details LastModified Time Tobacco Smoking Status Never Smoker Susana shah, [facility] 2023 15:08:14 What Is Your Level [...] Or The Highest Degree You Have Received? LC64887-5 Information not available 2023 Are There Any [...] Anxious, Or Unable To Sleep At Night)? NR65452-1 Information not available 2023 Do You Use Any Illicit Or Recreational Drugs? No Information not available 2023 Do You Use Sunscreen Routinely? No Information not available 2023 Have You Used IV Drugs? No Information not available 2023 Sex: Unknown Functional Status Question Answer Note LastModified by Organizat ion Details LastModified Time Do you have difficulty walking or climbing stairs? No Information not available 01/06/2024 Are you able to walk? YESWOREST Information not available 2023 Are you able to care for yourself? Yes [email or web address] Information not available 01/06/2024 Do you have difficulty dressing or bathing? No [email or web address] Information not available 01/06/2024 What is your exercise level? Moderate Information not available 2023 Mental Status None recorded. Family History Relationship Description Onset Age of this Age Resolved Age Notes LastModified by Organization Details LastModified Time Mother Essential hypertension [email or web address] Not available 11:50:07 Medical History Condition Response Allergies (Food, seasonal, environmental ) Y Other N Drug/Latex Allergies/Reactions N Blood Transfusion N Breast Cancer N Dermatologic Disorders N Lung Disease N [...] Diagnosis/Indication Diagnosis SNOMED-CT Code Diagnosis ICD10 Code [id number] Carlene Macias CNM [facility] [address],[place] [address] 02/10/2024 11:07:14 02/10/2024 12:40:48 Gestation period, 34 weeks 76727943 Z3A.34 Monosomy X 973637425 Q96 .9 [id number] Corin Christina [facility] [address],[place] [address] 02/10/2024 11:06:55 02/10/2024 12:05:49 Maternal obesity complicating , childbirth and the puerperium, antepartum 4480647436 07 O99.215 [id number] [facility] [address],[place] [address] 02/10/2024 11:17:13 02/10/2024 12:10:38 Maternal obesity complicating , childbirth and the puerperium, antepartum 6156953941 07 O99.213 Z3A.34 [id number] [facility] [address],[place] [address] 02/17/2024 10:40:25 02/17/2024 11:08:31 Maternal obesity complicating , childbirth and the puerperium, antepartum 7612104555 07 O99.213 Z3A.35 [id number] Tammie Haddad [facility] [address],[place] [address] 02/17/2024 10:40:37 02/20/2024 03:50:45 Maternal obesity complicating , childbirth and the puerperium, antepartum 4452078394 07 O99.213 [id number] [facility] [address],[place] [address] 02/17/2024 10:41:04 02/17/2024 12:08:39 Gestation period, 35 weeks 99223497 Z3A.35 Anemia 209747124 D64.9 [id number] Anamaria Ibanez [facility] [address],[place] [address] 02/24/2024 10:19:19 02/24/2024 11:26:08 Abnormal hematologic finding on screening of mother 988707057 O28.0 O99.210 O36.60X0 Z3A.36 [id number] Maude Woodrow [facility] [address],[place] [address] 02/24/2024 10:19:35 02/24/2024 12:16:41 Maternal obesity complicating , childbirth and the puerperium, antepartum 3192424663 07 O99.212 [id number] HEIDI COLON MD [facility] [address],[place] [address] 02/24/2024 10:19:50 02/24/2024 12:29:46 Nausea and vomiting 52252707 R11.2 Monosomy X 937707958 Q96 .9 Maternal o besity complicating , childbirth and the puerperium, antepartum 4010424277 07 O99.212 Gestation period, 36 weeks 88919961 Z3A.36 [id number] Tyra Miller [facility] [address],[place] [address] 03/03/2024 10:29:16 03/03/2024 10:58:26 Maternal obesity complicating , childbirth and the puerperium, antepartum 8852135002 07 O99.213 Z3A.37 [id number] Maude Peterson [facility] [address],[place] [address] 03/03/2024 10:29:50 03/03/2024 15:01:11 Maternal obesity complicating , childbirth and the puerperium, antepartum 4332980958 07 O99.212 [id number] HEIDI COLON MD [facility] [address],[place] [address] 03/04/2024 14:12:07 03/04/2024 14:52:49 Monosomy X 007677137 Q96.9 Maternal o besity complicating , childbirth and the puerperium, antepartum 2188586513 07 O99.212 Gestation period, 37 weeks 01623559 Z3A.37 [id number] Maude Peterson [facility] [address] [address] 03/09/2024 10:17:13 03/09/2024 11:28:51 Maternal obesity complicating , childbirth and the puerperium, antepartum 1226524514 07 O99.212 [id number] HEIDI COLON MD [facility] [address] [address] 03/09/2024 10:17:23 03/09/2024 11:59:43 Monosomy X 451858507 Q96.9 Maternal o besity complicating , childbirth and the puerperium, antepartum 1335560102 07 O99.212 Gestation period, 38 weeks 20541213 Z3A.38 Health Concerns Section Related Observation LastModified by Organization Detai ls LastModified Time None Recorded Concern Status LastModified by Organization Details LastModified Time None Recorded Payers Encounter Date Sequence Insurance Name Policy Number Policy Kraus Covered Member ID Kraus Member ID Guarantor Name 03/09/2024 1 [facility] (MEDICAID HMO) [id number] Loulou Chang [id number] Dudley Natarajan OBGyn Episode Ob Episode Information Episode Created Date Number of Fetuses Patient Bloodtype Patient rh Status Prepregnancy Weight lbs Domestic Partner Domestic Partner Phone Father Name Editor Producer Status 09/08/19 24 1 O Positive 244.2 OPEN Fetus Data First Name Last Name Admitted to NICU Weight (g) Sex Living Outcome Pediatric Complications Fetus ID Race Codes Race Delivery Type [id number] Problems Problem Notes MFM: 09/13 with genetic couns elor & CARDIAC MONITOR TECHNICIAN ultrasound, declined [facility]S10/11 @945 US & 11/08 945 US [facility] Problem Name Start Date End Date Resolution Snomed Code Not e Body mass index 40+ - severely obese 195516120 weekly testin g @34wks Monosomy X 075951331 HR on NIP T, declined CVS/amniocentesis Angus Calculation ANGUS Calculation Method Initial Angus Date Initial Exam Date Initial Exam Provider Initial Ultrasound Date Last Menstrual Period Date Ultra Sound Weeks Gestation Conception by IVF Embryo Age at Transfer Date of Transfer 03/22/2009/08/19 24 08/04/2023 06/03/2023 7 Eighteen To Twenty Week Angus Update Ultra Sound Date Fundal Height At Umbil Quickening Date Ultra Sound Latest Weeks Gestation Final Angus Confirmed By Final Angus Confirmed Date Final Angus Date Ultra Sound Latest Days Gestation 0 [email or web address] 09/08/2023 03/22/20 24 0 Pre-jerri Flowsheet Flowsheet [...] Weight in lbs Pre/Post Dialysis Refused Weight 237.262586529782 BP Diastolic BP Location Tested BP Systolic BP Type 66 100 Fetus Heart Rate Present A 165 Fetus Movement Comments Patient presents to [facility]. Nausea improved, no bleeding or cramping. complicated by high risk NIPT for monosomy X. Referral sent to [facility]. Discussed amniocentesis for diagnostic testing. Discussed risks of monosomy X. NT/NB wnl today. Other OB labs wnl. RTC 4 weeks, will follow up [facility] referral. Flowsheet Date 10/07/2023 Lewis Score Blood Edema Fundus Height Fundus Units Glucose Ketones Leukocytes Nitrite Labor Signs Protein Cervic Dilation Cervic Effacement Cervic Station Type Weight in lbs Pre/Post Dialysis Refused Weight 236.667620170783 BP Diastolic BP Location Tested BP Systolic BP Type 72 116 Fetus Heart Rate Present A 160 Fetus Movement A No Comments Doing well, no movemen t yet. No cramping, bleeding or nausea. Saw [facility] for HR Monosomy X on NIPT, declined CVS/amnio. Has follow up visit with them on Thursday. Discussed anatomy US with [facility], otherwise normal care in 4 weeks. Flowsheet Date 11/10/2023 Lewis Score Blood Edema Fundus Height Fundus Units Glucose Ketones Leukocytes Nitrite Labor Signs Protein Cervic Dilation Cervic Effacement Cervic Station Type Weight in lbs Pre/Post Dialysis Refused Weight 237.663840169670 BP Diastolic BP Location Tested BP Systolic BP Type 61 108 Fetus Heart Rate Present A 145 Fetus Movement A Yes Comments Baby moving well. Had anatom y US with MFM yesterday, incomplete but normal visualized anatomy. Repeat in 4 weeks with MFM. No cramping or bleeding. RTC 4 weeks. Flowsheet Date 12/09/2023 Lewis Score Blood Edema Fundus Height Fundus Units Glucose Ketones Leukocytes Nitrite Labor Signs Protein Cervic Dilation Cervic Effacement Cervic Station neg none trace Type Weight in lbs Pre/Post Dialysis Refused 238.146700642613 BP Diastolic BP Location Tested BP Systolic [...] Type Weight in lbs Pre/Post Dialysis Refused 243.048182877404 BP Diastolic BP Location Tested BP Systolic BP Type 76 L arm 122 sitting Fetus Heart Rate Present Fetus Movement A Yes Comments Good movement. No cram ping or bleeding. Repeat growth with MFM, EFW 75%. Continue serial growth US per [facility]. GCT and labs today. Discussed tdap vaccine. Desires EIL on 03/15 as partner is going to basic training for the [employer]. 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 RTC 2 weeks. Flowsheet Date 01/20/2024 Lewis Score Blood Edema Fundus Height Fundus Units Glucose Ketones Leukocytes Nitrite Labor Signs Protein Cervic Dilation Cervic Effacement Cervic Station neg none none trace Type Weight in lbs Pre/Post Dialysis Refused Weight 246.442487711413 BP Diastolic BP Location Tested BP Systolic [...] Weight in lbs Pre/Post Dialysis Refused Weight 246.266621336549 BP Diastolic BP Location Tested BP Systolic BP Type 66 L arm 118 sitting Fetus Heart Rate Present Fetus Movement A Yes Comments Patient c/o of some nausea a nd [place]. No bleeding. Good movement. Had MFM [...] Weight in lbs Pre/Post Dialysis Refused Weight 249.375300582083 BP Diastolic BP Location Tested BP Systolic [...] Weight in lbs Pre/Post Dialysis Refused Weight 247.157483868336 BP Diastolic BP Location Tested BP Systolic BP Type 77 122 Fetus Heart Rate Present Fetus Movement Comments Flowsheet Date 02/17/2024 Lewis Score Blood Edema Fundus Height Fundus Units Glucose Ketones Leukocytes Nitrite Labor Signs Protein Cervic Dilation Cervic Effacement Cervic Station none Type Weight in lbs Pre/Post Dialysis Refused Weight 247.024315933648 BP Diastolic BP Location Tested BP Systolic [...] Weight in lbs Pre/Post Dialysis Refused Weight 248.345141758924 BP Diastolic BP Location Tested BP Systolic [...] Type Weight in lbs Pre/Post Dialysis Refused 249.315300297765 BP Diastolic BP Location Tested BP Systolic [...] Weight in lbs Pre/Post Dialysis Refused Weight 248.717002982109 BP Diastolic BP Location Tested BP Systolic BP Type 74 L arm 118 sitting Fetus Heart Rate Present A 140 Fetus Movement A Yes Comments Good movement. No ctx, LOF, VB. Will move induction from 03/15 to 03/16 due to staffing issues at [place]. BPP 8/8 at M Thursday, NST reactive today. Labor precautions reviewed. Menstrual History Last Menstrual Date Menses Monthly On Bcp Conception Prior Menses Frequency Hcg Plus Date Menarche Onset Age 0306/03/2023 Genetic Screening And Infection History Question Response Note Mental Retardation/Autism false Patient's Age Will Be 35 Years Or Older At Estim ated Date of Delivery false Thalassemia (Jordanian, Upper Sorbian, Mediterranean, Or Background): MCV < 80 false Neural Tube Defect (Meningomyelocele, Spina Bifi da, Or Anencephaly) false Congenital Heart Defect false Down Syndrome false Ben-Sachs (eg, Hindu, Cajun, Amharic-Mutual) f alse Juve Disease false Sickle Cell Disease Or Trait () false Hemophilia Or Other Blood Disorders false Muscular Dystrophy false Cystic Fibrosis false [place]'s Chorea false Intellectual Disability/Autism false If Yes, [...]
--- OUTSIDE RECORDS SUMMARY | 2024-03-24 00:24 | XMS_ITS | Continuity of Care Document ---
Author Organization [facility] [place] Address [address] [place] [address] Assessment No assessment recorded. Plan of Treatment Reminders Order Date Submit Date Provider Last Modified By Organization Details Last Modified Time Details Appointments SURG POST OP 025 10:45AM HEIDI COLON MD Not available Not available Not available Lab None record ed. Referral None record ed. Procedures None record ed. Surgeries None record ed. Imaging non-st ress test 024 03/09/20 24 [email or web address] [place], [address], [place], [address], 03/09/2024 11:28:52 Medication Orders None record ed. Patient TargetsNo targets recorded. Patient InstructionsNo instructions recorded. Reason for Referral None Reported. Results Created Date Observation Date Name Description Value Unit Range Abnormal Flag Note LastModifiedBy Organization Detail LastModifiedTime 09/08/19 24 09/08/2023 US, obste tric, nucha l trans lucen cy No observ ation record ed. R[address]ARNEST [address], [facility], [place], [address], 09/10/2023 10:53:56 09/08/19 24 09/08/2023 US, obste tric, nucha l trans lucen cy No observ ation record ed. [email or web address] [place] [address], [place], [address], 09/08/2023 13:17:08 09/14/19 24 09/14/2023 US, obste tric, follo w-up No observ ation record ed. [email or web address] [facility] [address] [place] [address], [place], [address], 09/16/2023 14:33:23 09/14/19 24 09/14/2023 US, obste tric, trans abdom inal No observ ation record ed. [email or web address] [facility] [address], [place], [address], 09/15/2023 15:09:15 10/12/19 24 10/12/2023 US, obste tric No observ ation record ed. [email or web address] [facility] [address], [place], [address], 10/13/2023 16:44:42 11/09/19 24 11/09/2023 US, obste tric, follo w-up No observ ation record ed. [email or web address] [facility] [address], [place], [address], 11/10/2023 16:45:37 12/07/19 24 12/07/2023 imagi ng/di agnos tic resul t No observ ation record ed. [facility] [address], [place], [address], 12/11/2023 10:32:37 01/04/20 24 01/04/2024 imagi ng/di agnos tic resul t No observ ation record ed. [facility] [address], [place], [address], 01/07/2024 12:12:29 02/02/20 24 02/01/2024 US, obste tric, follo w-up No observ ation record ed. [facility] [address] [facility], [place], [address], 02/04/2024 10:30:16 02/10/20 24 02/10/2024 non-s tress test No observ ation record ed. [email or web address] [place] [address], [place], [address], 02/10/2024 11:58:14 02/10/20 24 02/10/2024 US, obste tric, bioph ysica l profi le + non-s tress test No observ ation record ed. [email or web address] [place] [address], [place], [address], 02/10/2024 12:45:48 02/10/20 24 02/10/2024 US, obste tric, bioph ysica l profi le + non-s tress test No observ ation record ed. [email or web address] [address], [place], [address], 02/10/2024 22:00:22 02/17/20 24 02/17/2024 US, obste tric, bioph ysica l profi le + non-s tress test No observ ation record ed. [email or web address] [place] [address], [place], [address], 02/17/2024 13:14:35 02/17/20 24 02/17/2024 US, obste tric, bioph ysica l profi le + non-s tress test No observ ation record ed. [email or web address] [address], [place], [address], 02/19/2024 01:03:22 02/17/20 24 02/17/2024 non-s tress test No observ ation record ed. [email or web address] [place] [address], [place], [address], 02/17/2024 18:46:39 02/17/20 non-s tress test No observ ation record ed. [email or web address] [place] [address], [place], [address], 02/17/2024 18:48:46 02/24/20 24 02/24/2024 US, obste tric, bioph ysica l profi le + non-s tress test No observ ation record ed. [facility] [address], [place], [address], 02/24/2024 14:24:08 02/24/20 24 02/24/2024 US, obste tric, follo w-up No observ ation record ed. [facility] [address], [place], [address], 02/24/2024 14:24:20 02/24/20 24 02/24/2024 US, obste tric, bioph ysica l profi le + non-s tress test No observ ation record ed. [email or web address] [address], [facility], [place], [address], 02/25/2024 11:50:17 02/24/20 24 02/24/2024 non-s tress test No observ ation record ed. [email or web address] [place] [address], [place], [address], 02/24/2024 12:00:12 03/01/20 24 02/29/2024 imagi ng/di agnos tic resul t No observ ation record ed. [facility] [address] [place] [address], [address], 03/01/2024 17:20:31 03/03/20 24 03/03/2024 US, obste tric, bioph ysica l profi le + non-s tress test No observ ation record ed. [email or web address] [place] [address], [place], [address], 03/03/2024 12:20:34 03/03/20 24 03/03/2024 US, obste tric, bioph ysica l profi le + non-s tress test No observ ation record ed. [email or web address] [address], [place], [address], 03/03/2024 20:54:47 03/03/20 24 03/03/2024 non-s tress test No observ ation record ed. [email or web address] [place] [address], [place], [address], 03/03/2024 14:58:50 03/08/20 24 03/07/2024 imagi ng/di agnos tic resul t No observ ation record ed. [facility] Care [address], [address], 03/09/2024 00:46:18 03/09/20 24 03/09/2024 non-s tress test No observ ation record ed. [email or web address] [place] [address], [place], [address], 03/09/2024 11:26:46 03/14/20 24 03/14/2024 imagi ng/di agnos tic resul t No observ ation record ed. [facility] [address] [place] [address], [address], 03/14/2024 13:30:26 03/17/20 24 03/14/2024 US, obste tric, follo w-up No observ ation record ed. [email or web address] [facility] Care [address], [address], 03/20/2024 15:27:00 Result Notes None recorded. Problems Name Problem SNOMED Code Status Onset Date Resolution Date Notes Provider Name and Address Organization Details Recorded Time 61045540 Active 2023 Jennie Grossman [facility] 4 12:13:08 Monosomy X 352515374 Active HR on NIPT, declined [facility]S/amnio centesis HEIDI COLON MD [address], [place], [address], [facility] 4 12:18:50 Monosomy X 926080298 Active HR on NIPT, declined CVS/amnio centesis HEIDI COLON MD [address], [place], [address], [facility] 4 12:18:50 Body mass index 40+ - severely obese 411308386 Active weekly testing @34wks Jillian Morin [facility] 4 15:45:52 Problem Notes None recorded. Procedures Surgical History None recorded. Imaging Results Imaging Date Name Status LastModified by Organiz ation Details LastModified Time 03/09/2024 non-stress test completed [email or web address] [place] [address], [place], [address], 03/09/2024 11:26:46 Procedure Notes None recorded. Medical Equipment None [...] 4 162.56 cm 99.24 % 42.6 kg/m2 948481. 91 g 118 mm[Hg] 74 mm[Hg] Maude Peterson [facility] 11:21:38 Social History Question Answer Notes LastModified by Organizat ion Details LastModified Time Tobacco Smoking Status Never Smoker Susana Dove null, [facility] 2023 15:08:14 What Is [...] Or The Highest Degree You Have Received? [id number] Information not available 2023 Are There Any [...] Anxious, Or Unable To Sleep At Night)? [id number] Information not available 2023 Do You Use Any Illicit Or Recreational Drugs? No Information not available 2023 Do You Use Sunscreen Routinely? No Information not available 2023 Have You Used IV Drugs? No Information not available 2023 Sex: Unknown Functional Status Question Answer Note LastModified by Organizat ion Details LastModified Time Do you have difficulty walking or climbing stairs? No [email or web address] Information not available 01/06/2024 Are you able to walk? YESWOREST Information not available 2023 Are you able to care for yourself? Yes [email or web address] Information not available 01/06/2024 Do you have difficulty dressing or bathing? No [email or web address] Information not available 01/06/2024 What is your [...] Diagnosis/Indication Diagnosis SNOMED-CT Code Diagnosis ICD10 Code [id number] Carlene Buddy Macias CNM [place] [address] [address] 02/10/2024 11:07:14 02/10/2024 12:40:48 Gestation period, 34 weeks 67690290 Z3A.34 Monosomy X 103547471 Q96 .9 [id number] Cor[facility] [address],[place] [address] 02/10/2024 11:06:55 02/10/2024 12:05:49 Maternal obesity complicating , childbirth and the puerperium, antepartum 8806370033 07 O99.215 [id number] [facility] [address],[place] [address] 02/10/2024 11:17:13 02/10/2024 12:10:38 Maternal obesity complicating , childbirth and the puerperium, antepartum 0328501498 07 O99.213 Z3A.34 [id number] [facility] [address],[place] [address] 02/17/2024 10:40:25 02/17/2024 11:08:31 Maternal obesity complicating , childbirth and the puerperium, antepartum 1818728733 07 O99.213 Z3A.35 [id number] Tammie Haddad [place] [address],[place] [address] 02/17/2024 10:40:37 02/20/2024 03:50:45 Maternal obesity complicating , childbirth and the puerperium, antepartum 5234689319 07 O99.213 [id number] Carlene Macias CNM [place] [address],[place] [address] 02/17/2024 10:41:04 02/17/2024 12:08:39 Gestation period, 35 weeks 41105030 Z3A.35 Anemia 663642386 D64.9 [id number] Anamaria Shamar [place] [address] [address] 02/24/2024 10:19:19 02/24/2024 11:26:08 Abnormal hematologic finding on screening of mother 783489289 O28.0 O99.210 O36.60X0 Z3A.36 [id number] Maude Peterson [place] [address] [address] 02/24/2024 10:19:35 02/24/2024 12:16:41 Maternal obesity complicating , childbirth and the puerperium, antepartum 7233480260 07 O99.212 [id number] HEIDI COLON MD [place] [address] [address] 02/24/2024 10:19:50 02/24/2024 12:29:46 Nausea and vomiting 80541768 R11.2 Monosomy X 306602694 Q96 .9 Maternal o besity complicating , childbirth and the puerperium, antepartum 3527129544 07 O99.212 Gestation period, 36 weeks 96153121 Z3A.36 [id number] Tyra Miller [place] [address],[place] [address] 03/03/2024 10:29:16 03/03/2024 10:58:26 Maternal obesity complicating , childbirth and the puerperium, antepartum 0388771520 07 O99.213 Z3A.37 [id number] Maude Peterson [place] [address] [address] 03/03/2024 10:29:50 03/03/2024 15:01:11 Maternal obesity complicating , childbirth and the puerperium, antepartum 1161508345 07 O99.212 [id number] HEIDI COLON MD [place] [address] [address] 03/04/2024 14:12:07 03/04/2024 14:52:49 Monosomy X 030746514 Q96.9 Maternal o besity complicating , childbirth and the puerperium, antepartum 2187287691 07 O99.212 Gestation period, 37 weeks 36621872 Z3A.37 [id number] Maude Peterson [place] [address],[place] [address] 03/09/2024 10:17:13 03/09/2024 11:28:51 Maternal obesity complicating , childbirth and the puerperium, antepartum 6816128004 07 O99.212 [id number] HEIDI COLON MD [place] [address],[place] [address] 03/09/2024 10:17:23 03/09/2024 11:59:43 Monosomy X 595992105 Q96.9 Maternal o besity complicating , childbirth and the puerperium, antepartum 0054300988 07 O99.212 Gestation period, 38 weeks 15254410 Z3A.38 Health Concerns Section Related Observation LastModified by Organization Detai ls LastModified Time None Recorded Concern Status LastModified by Organization Details LastModified Time None Recorded Payers Encounter Date Sequence Insurance Name Policy Number Policy Karus Covered Member ID Kraus Member ID Guarantor Name 03/09/2024 1 [facility] (MEDICAID HMO) [id number] Loulou Chang [id number] Dudley Natarajan OBGyn Episode Ob Episode Information Episode Created Date Number of Fetuses Patient Bloodtype Patient rh Status Prepregnancy Weight lbs Domestic Partner Domestic Partner Phone Father Name Production Cost Estimator Status 09/08/19 24 1 O Positive 244.2 OPEN Fetus Data First Name Last Name Admitted to NICU Weight (g) Sex Living Outcome Pediatric Complications Fetus ID Race Codes Race Delivery Type [id number] Problems Problem Notes MFM: 09/13 with genetic couns elor & RECORD RETRIEVAL SPECIALIST ultrasound, declined CVS10/11 @945 US & 11/08 945 US [facility] Problem Name Start Date End Date Resolution Snomed Code Not e Body mass index 40+ - severely obese 431296880 weekly testin g @34wks Monosomy X 380798211 HR on NIP T, declined CVS/amniocentesis Angus [...] Date Ultra Sound Latest Days Gestation 0 [email or web address] 09/08/2023 03/22/20 24 0 Pre-jerri Flowsheet Flowsheet [...] Weight in lbs Pre/Post Dialysis Refused Weight 237.172476905064 BP Diastolic BP Location Tested BP Systolic BP Type 66 100 Fetus Heart Rate Present A 165 Fetus Movement Comments Patient presents to [facility] care. Nausea improved, no bleeding or cramping. complicated by high risk NIPT for monosomy X. Referral sent to [facility]. Discussed amniocentesis for diagnostic testing. Discussed risks of monosomy X. NT/NB wnl today. Other OB labs wnl. RTC 4 weeks, will follow up [facility] referral. Flowsheet Date 10/07/2023 Lewis Score Blood Edema Fundus Height Fundus Units Glucose Ketones Leukocytes Nitrite Labor Signs Protein Cervic Dilation Cervic Effacement Cervic Station Type Weight in lbs Pre/Post Dialysis Refused Weight 236.622746031289 BP Diastolic BP Location Tested BP Systolic BP Type 72 116 Fetus Heart Rate Present A 160 Fetus Movement A No Comments Doing well, no movemen t yet. No cramping, bleeding or nausea. Saw MFM for HR Monosomy X on NIPT, declined CVS/amnio. Has follow up visit with them on Thursday. Discussed anatomy US with MFM, otherwise normal care in 4 weeks. Flowsheet Date 11/10/2023 Lewis Score Blood Edema Fundus Height Fundus Units Glucose Ketones Leukocytes Nitrite Labor Signs Protein Cervic Dilation Cervic Effacement Cervic Station Type Weight in lbs Pre/Post Dialysis Refused Weight 237.607771312947 BP Diastolic BP Location Tested BP Systolic [...] Type Weight in lbs Pre/Post Dialysis Refused 238.844486234685 BP Diastolic BP Location Tested BP Systolic BP Type 75 L arm 111 sitting Fetus Heart Rate Present A 150 Fetus Movement A Yes Comments Pateint c/o of lower back pa in and lower pelvic pain. Discussed tylenol, ice/hot packs, and belly band. Good movement. Had repeat anatomy with MFM, all normal; EFW 90%, growth US scheduled for 4 weeks with MF. Discussed GCT and labs for next visit. RTC 3-4 weeks. Flowsheet Date 01/06/2024 Lewis Score Blood Edema Fundus Height Fundus Units Glucose Ketones Leukocytes Nitrite Labor Signs Protein Cervic Dilation Cervic Effacement Cervic Station neg none none trace Type Weight in lbs Pre/Post Dialysis Refused 243.267169654938 BP Diastolic BP Location Tested BP Systolic BP Type 76 L arm 122 sitting Fetus Heart Rate Present Fetus Movement A Yes Comments Good movement. No cram ping or bleeding. Repeat growth with MFM, EFW 75%. Continue serial growth US per [facility]. GCT and labs today. Discussed tdap vaccine. Desires EIL on 03/15 as partner is going to basic training for the army. Discussed SP supply chain consultant, patient will make appointmetns with her to meet and discuss EIL. RTC 2 weeks. Flowsheet Date 01/20/2024 Lewis Score Blood Edema Fundus Height Fundus Units Glucose Ketones Leukocytes Nitrite Labor Signs Protein Cervic Dilation Cervic Effacement Cervic Station neg none none trace Type Weight in lbs Pre/Post Dialysis Refused Weight 246.802937872202 BP Diastolic BP Location Tested BP Systolic [...] Weight in lbs Pre/Post Dialysis Refused Weight 246.710801718443 BP Diastolic BP Location Tested BP Systolic BP Type 66 L arm 118 sitting Fetus Heart Rate Present Fetus Movement A Yes Comments Patient c/o of some nausea a nd [place] Re[place]. No bleeding. Good movement. Had MFM [...] Weight in lbs Pre/Post Dialysis Refused Weight 249.944151030678 BP Diastolic BP Location Tested BP Systolic BP Type 76 121 Fetus Heart Rate Present Fetus Movement A Yes Comments Patient is having pain and d ischarge. +FM bpp 10/10 IOL on 03/14 at 1700 discussed cytotec [...] Weight in lbs Pre/Post Dialysis Refused Weight 247.330585815383 BP Diastolic BP Location Tested BP Systolic BP Type 77 122 Fetus Heart Rate Present Fetus Movement Comments Flowsheet Date 02/17/2024 Lewis Score Blood Edema Fundus Height Fundus Units Glucose Ketones Leukocytes Nitrite Labor Signs Protein Cervic Dilation Cervic Effacement Cervic Station none Type Weight in lbs Pre/Post Dialysis Refused Weight 247.026731565632 BP Diastolic BP Location Tested BP Systolic [...] Weight in lbs Pre/Post Dialysis Refused Weight 248.635969400221 BP Diastolic BP Location Tested BP Systolic [...] Type Weight in lbs Pre/Post Dialysis Refused 249.422895816953 BP Diastolic BP Location Tested BP Systolic [...] Weight in lbs Pre/Post Dialysis Refused Weight 248.246741971634 BP Diastolic BP Location Tested BP Systolic BP Type 74 L arm 118 sitting Fetus Heart Rate Present A 140 Fetus Movement A Yes Comments Good movement. No ctx, LOF, VB. Will move induction from 03/15 to 03/16 due to staffing issues at [facility]. BPP 10/28 at [facility] Thursday, NST reactive today. Labor precautions reviewed. Menstrual History Last Menstrual Date Menses Monthly On Bcp Conception Prior Menses Frequency Hcg Plus Date Menarche Onset Age 0306/03/2023 Genetic Screening And Infection History Question Response Note Mental Retardation/Autism false Patient's Age Will Be 35 Years Or Older At Estim ated Date of Delivery false Thalassemia (Ukrainian, Belarusian, Mediterranean, Or Background): MCV < 80 false Neural Tube Defect (Meningomyelocele, Spina Bifi da, Or Anencephaly) false Congenital Heart Defect false Down Syndrome false Ben-Sachs (eg, Nondenominational, Cajun, Khmer-Cobb) f alse Juve Disease false Sickle Cell Disease Or Trait () false Hemophilia Or Other Blood Disorders false Muscular Dystrophy false Cystic Fibrosis false [place]'s Chorea false Intellectual Disability/Autism false If Yes, [...]
--- OUTSIDE RECORDS SUMMARY | 2024-03-24 00:24 | XMS_ITS | Data Portability ---
Author Organization [facility] Address [address] [place] [address] [place] [address] Assessment Encounter Date Assessment Date Assessment LastModified by Organization Details LastModified Time 03/09/2024 03/09/2024 Patient is ___weeks . Discussed plan. [email or web address] Not available 03/09/2024 11:20:49 Plan of Treatment Reminders Order Date Submit Date Provider Last Modified By Organization Details Last Modified Time Details Appointments SURG POST OP 2024 10:45A [place] COLON MD Not available Not available Not available Lab None recorded. Referral None recorded. Procedures None recorded. Surgeries None recorded. Imaging US, obstetric , biophysic al profile + non-stres s test 2023 024 [email or web address] [place] [facility] [address], [place], [address], 03/03/2024 20:39:40 non-stres s test 2023 [address] [facility] [address], [place], [address], 03/09/2024 11:28:52 Medication Orders None recorded. Patient TargetsNo targets recorded. Patient InstructionsNo instructions recorded. Reason for Referral None Reported. Results Created Date Observation Date Name Description Value Unit Range Abnormal Flag Note LastModifiedBy Organization Detail LastModifiedTime 02/24/20 24 02/24/2024 CULTU RE: GROUP B STREP SCREE N, REFLE X SUSCE PTIBI LITY result report SEE RESULT S BELOW Test: Cultu re: Group B Strep , Refle x Susce ptibi lity ([facility]/ [facility]/K [facility] ) Speci men Sourc e: Vagin a/Rec kirby Speci men Type: Vagin al/Re ctal Speci men Date: 2023 1348 Resul t Date: 2023 1409 Resul t Statu s: Final resul t Abnor mal: No Resul ting Lab: [facility] [address] [facility] [address] Tel: CULTU RE ----- ----- ----- --- No Group B strep isola luke at 2 days (katia ctive broth enhan cemen t) Not Available [facility] (Lab) [address], [place], [address], 02/27/2024 15:13:31 02/02/20 24 02/01/2024 US, obste tric, follo w-up No observ ation record ed. [email or web address] [facility] [address], [place], [address], 02/04/2024 10:30:16 02/10/20 24 02/10/2024 non-s tress test No observ ation record ed. [email or web address] [place] [address], [place], [address], 02/10/2024 11:58:14 02/10/20 24 02/10/2024 US, obstnelly tric, bioph ysica l profi le + non-s tress test No observ ation record ed. [email or web address] [place] [address], [place], [address], 02/10/2024 12:45:48 02/10/20 24 02/10/2024 US, obste tric, bioph ysica l profi le + non-s tress test No observ ation record ed. [email or web address] [address] [address], [place], [address], 02/10/2024 22:00:22 02/17/20 24 02/17/2024 US, obste tric, bioph ysica l profi le + non-s tress test No observ ation record ed. [email or web address] [place] [address], [place], [address], 02/17/2024 13:14:35 02/17/20 24 02/17/2024 US, obste tric, bioph ysica l profi le + non-s tress test No observ ation record ed. [email or web address] [address] [facility], [place], [address], 02/19/2024 01:03:22 02/17/20 24 02/17/2024 non-s tress test No observ ation record ed. [email or web address] [place] [address], [place], [address], 02/17/2024 18:46:39 02/17/20 non-s tress test No observ ation record ed. [email or web address] [place] [address], [place], [address], 02/17/2024 18:48:46 02/24/20 24 02/24/2024 US, svetlanae tric, bioph ysica l profi le + non-s tress test No observ ation record ed. [facility] [address], [place], [address], 02/24/2024 14:24:08 02/24/20 24 02/24/2024 US, obstnelly tric, follo w-up No observ ation record ed. [facility] [address], [place], [address], 02/24/2024 14:24:20 02/24/20 24 02/24/2024 US, obste tric, bioph ysica l profi le + non-s tress test No observ ation record ed. [email or web address] [address] [address], [place], [address], 02/25/2024 11:50:17 02/24/20 24 02/24/2024 non-s tress test No observ ation record ed. [email or web address] [place] [address], [place], [address], 02/24/2024 12:00:12 03/01/20 24 02/29/2024 imagi ng/di agnos tic resul t No observ ation record ed. [address], [address], 03/01/2024 17:20:31 03/03/20 24 03/03/2024 US, obste tric, bioph ysica l profi le + non-s tress test No observ ation record ed. [email or web address] [place] [address], [place], [address], 03/03/2024 12:20:34 03/03/20 24 03/03/2024 US, obste tric, bioph ysica l profi le + non-s tress test No observ ation record ed. [email or web address] [address], [place], [address], 03/03/2024 20:54:47 03/03/20 24 03/03/2024 non-s tress test No observ ation record ed. [email or web address] [place] [address], [place], [address], 03/03/2024 14:58:50 03/08/20 24 03/07/2024 imagi ng/di agnos tic resul t No observ ation record ed. [address], [address], 03/09/2024 00:46:18 03/09/20 24 03/09/2024 non-s tress test No observ ation record ed. [place] [address], [place], [address], 03/09/2024 11:26:46 03/14/20 24 03/14/2024 imagi ng/di agnos tic resul t No observ ation record ed. [facility] [place], [address], 03/14/2024 13:30:26 03/17/20 24 03/14/2024 US, obste tric, follo w-up No observ ation record ed. [email or web address] [address], [address], 03/20/2024 15:27:00 Result Notes None recorded. Problems Name Problem SNOMED Code Status Onset Date Resolution Date Notes Provider Name and Address Organization Details Recorded Time 25086989 Active 2023 Jennie shah, [facility] 4 12:13:08 Monosomy X 334827482 Active HR on NIPT, declined [facility]S/amnio centesis HEIDI COLON MD [address], [place], [address], [facility] 4 12:18:50 Monosomy X 143827851 Active HR on NIPT, declined [facility]S/amnio centesis HEIDI COLON MD [address], [place], [address], [facility] 4 12:18:50 Body mass index 40+ - severely obese 597947628 Active weekly testing @34wks Jillian shah [facility] 4 15:45:52 Problem Notes None recorded. Procedures Surgical History None recorded. Imaging Results Imaging Date Name Status LastModified by Organiz ation Details LastModified Time 02/01/2024 US, obstetric, follow-up completed [email or web address] [facility] [address], [place], [address], 02/04/2024 10:30:16 02/10/2024 [email or web address] [place] [address], [place], [address], 02/10/2024 11:58:14 02/10/2024 US, obstetric, biophysical profile + non-stress test completed [email or web address] [place] [address], [place], [address], 02/10/2024 12:45:48 02/10/2024 US, obstetric, biophysical profile + non-stress test completed [email or web address] [address], [place], [address], 02/10/2024 22:00:22 02/17/2024 US, obstetric, biophysical profile + non-stress test completed [email or web address] [place] [address], [place], [address], 02/17/2024 13:14:35 02/17/2024 US, obstetric, biophysical profile + non-stress test completed [email or web address] [address], [place], [address], 02/19/2024 01:03:22 02/17/2024 non-stress test completed [place] [address], [place], [address], 02/17/2024 18:46:39 02/17/2024 non-stress test completed [email or web address] [place] [address], [place], [address], 02/17/2024 18:48:46 02/24/2024 US, obstetric, biophysical profile + non-stress test completed [email or web address] [place] [address], [place], [address], 02/24/2024 14:24:08 02/24/2024 US, obstetric, follow-up completed [email or web address] [place] [address], [place], [address], 02/24/2024 14:24:20 02/24/2024 US, obstetric, biophysical profile + non-stress test completed [email or web address] [address], [place], [address], 02/25/2024 11:50:17 02/24/2024 non-stress test completed [facility] [place] [address], [place], [address], 02/24/2024 12:00:12 02/29/2024 imaging/diagnos tic result completed [address], [address], 03/01/2024 17:20:31 03/03/2024 US, obstetric, biophysical profile + non-stress test completed [email or web address] [place] [address], [place], [address], 03/03/2024 12:20:34 03/03/2024 US, obstetric, biophysical profile + non-stress test completed [email or web address] [address], [place], [address], 03/03/2024 20:54:47 03/03/2024 non-stress test completed home [place] [address], [place], [address], 03/03/2024 14:58:50 03/07/2024 imaging/diagnos tic result completed [facility] [address] [place], [address], 03/09/2024 00:46:18 03/09/2024 non-stress test completed [email or web address] [place] [address], [place], [address], 03/09/2024 11:26:46 03/14/2024 imaging/diagnos tic result active [place] [address], [address], 03/14/2024 13:30:26 03/14/2024 US, obstetric, follow-up completed [email or web address] [address], [address], 03/20/2024 15:27:00 Procedure Notes None recorded. Medical Equipment None [...] 4 162.56 cm 42.7 kg/m2 99.28 % 983458. 09363 g 116 mm[Hg] 70 mm[Hg] Tammie Haddad [facility] 4 14:25:23 Date Recorded Body height Body mass index (BMI) Percentile per age and sex Body mass index (BMI) Body weight Systolic blood pressure Diastolic blood pressure Provider Name and Address Organization Details Last Updated DateTime 4 162.56 cm 99.24 % 42.6 kg/m2 562943. 91 g 118 mm[Hg] 74 mm[Hg] Maude Peterson [facility] 11:21:38 Social History Question Answer Notes LastModified by Organizat ion Details LastModified Time Tobacco Smoking Status Never Smoker Susana Dove alyssa, [facility] 2023 15:08:14 What Is Your [...] Or The Highest Degree You Have Received? [id number] Information not available 2023 Are There Any [...] Anxious, Or Unable To Sleep At Night)? [id number] Information not available 2023 Do You Use Any Illicit Or Recreational Drugs? No Information not available 2023 Do You Use Sunscreen Routinely? No Information not available 2023 Have You Used IV Drugs? No Information not available 2023 Sex: Unknown Functional Status Question Answer Note LastModified by Organizat ion Details LastModified Time Do you have difficulty walking or climbing stairs? No [email or web address] Information not available 01/06/2024 Are you able to walk? [email or web address] Information not available 2023 Are you able to care for yourself? Yes [email or web address] Information not available 01/06/2024 Do you have [...] Diagnosis/Indication Diagnosis SNOMED-CT Code Diagnosis ICD10 Code [id number] DEANDRA Paul [place] [address],[place] [address] 2023 14:47:29 2023 17:02:31 Gynecologic examination 24470730 Z01.419 Irregular periods 060661 07 N92.6 test positive 705299780 Z32.01 214303 [facility] [address],[place] [address] 08/04/2023 10:41:02 08/04/2023 11:20:21 Uterine size for dates discrepancy 768331145 O26.841 Z3A.01 778020 HEIDI COLON MD [place] [address],[place] [address] 08/04/2023 10:41:24 08/08/2023 02:42:56 test positive 700913785 Z32.01 144649 [facility] [address],[place] [address] 09/08/2023 10:59:58 09/08/2023 13:27:16 screening 047764740 Z36.82 O28.0 Z3A.12 [id number] HEIDI COLON MD [place] [address],[place] [address] 09/08/2023 11:00:19 09/08/2023 15:01:28 Gestation period, 12 weeks 92407894 Z3A.12 Sex chromo some aneuploidy 346383588 Q99.8 855264 HEIDI COLON MD [place] [address],[place] [address] 10/07/2023 11:30:11 10/07/2023 12:20:07 Monosomy X 491793884 Q96.9 Gestation period, 16 weeks 20511158 Z3A.16 399412 HEIDI COLON MD [place] [address],[place] [address] 11/10/2023 11:49:58 11/10/2023 12:30:55 Monosomy X 883475728 Q96.9 Maternal o besity complicating , childbirth and the puerperium, antepartum 0160340540 07 O99.212 Gestation period, 21 weeks 61721591 Z3A.21 099911 HEIDI COLON MD [place] [address],[place] [address] 12/09/2023 11:44:14 12/09/2023 12:19:50 Monosomy X 781243238 Q96.9 Gestation period, 25 weeks 50005341 Z3A.25 155323 HEIDI COLON MD [place] [address],[place] [address] 01/06/2024 14:02:28 01/06/2024 14:43:21 Monosomy X 394790444 Q96.9 Maternal o besity complicating , childbirth and the puerperium, antepartum 3745473270 07 O99.212 Gestation period, 29 weeks 97524157 Z3A.29 685149 HEIDI COLON MD [place] [address],[place] [address] 01/20/2024 11:06:31 01/20/2024 12:07:38 Anemia of 34422879 O99.019 Maternal o besity complicating , childbirth and the puerperium, antepartum 2239863332 07 O99.212 Gestation period, 31 weeks 21930863 Z3A.31 [id number] HEIDI COLON MD [place] [address],[place] [address] 02/03/2024 10:35:23 02/03/2024 11:50:26 Nausea and vomiting 18756020 R11.2 Gestation period, 33 weeks 73829400 Z3A.33 Monosomy X 184946902 Q96 .9 385743 [facility] [address],[place] [address] 02/10/2024 11:07:14 02/10/2024 12:40:48 Gestation period, 34 weeks 68026291 Z3A.34 Monosomy X 625357393 Q96 .9 218148 Corin Vasquez [place] [address],[place] [address] 02/10/2024 11:06:55 02/10/2024 12:05:49 Maternal obesity complicating , childbirth and the puerperium, antepartum 1571996585 [address] [facility] [address],[place] [address] 02/10/2024 11:17:13 02/10/2024 12:10:38 Maternal obesity complicating , childbirth and the puerperium, antepartum 9481658163 07 O99.[address] Z3A.[address] [facility] [address],[place] [address] 02/17/2024 10:40:25 02/17/2024 11:08:31 Maternal obesity complicating , childbirth and the puerperium, antepartum 1894509342 07 O99.213 Z3A.35 756809 Tammie Haddad [place] [address],[place] [address] 02/17/2024 10:40:37 02/20/2024 03:50:45 Maternal obesity complicating , childbirth and the puerperium, antepartum 1901370129 07 O99.213 [id number] Carlene Macias [facility] [address],[place] [address] 02/17/2024 10:41:04 02/17/2024 12:08:39 Gestation period, 35 weeks 86574357 Z3A.35 Anemia 334791014 D64.9 033258 [facility] [address],[place] [address] 02/24/2024 10:19:19 02/24/2024 11:26:08 Abnormal hematologic finding on screening of mother 041888723 O28.0 O99.210 O36.60X0 Z3A.36 [id number] Maude Peterson [place] [address],[place] [address] 02/24/2024 10:19:35 02/24/2024 12:16:41 Maternal obesity complicating , childbirth and the puerperium, antepartum 4766923575 07 O99.212 [id number] HEIDI COLON MD [place] [address],[place] [address] 02/24/2024 10:19:50 02/24/2024 12:29:46 Nausea and vomiting 53613879 R11.2 Monosomy X 447025760 Q96 .9 Maternal o besity complicating , childbirth and the puerperium, antepartum 1836073931 07 O99.212 Gestation period, 36 weeks 81020869 Z3A.36 [id number] Tyra Miller [place] [address],[place] [address] 03/03/2024 10:29:16 03/03/2024 10:58:26 Maternal obesity complicating , childbirth and the puerperium, antepartum 6530063690 07 O99.213 Z3A.37 641124 [facility] [address],[place] [address] 03/03/2024 10:29:50 03/03/2024 15:01:11 Maternal obesity complicating , childbirth and the puerperium, antepartum 6311686108 07 O99.212 [id number] HEIDI COLON MD [place] [address],[place] [address] 03/04/2024 14:12:07 03/04/2024 14:52:49 Monosomy X 990558415 Q96.9 Maternal o besity complicating , childbirth and the puerperium, antepartum 5916904362 07 O99.212 Gestation period, 37 weeks 81590791 Z3A.37 [id number] Maude Peterson [place] [address],[place] [address] 03/09/2024 10:17:13 03/09/2024 11:28:51 Maternal obesity complicating , childbirth and the puerperium, antepartum 2019335211 07 O99.212 [id number] HEIDI COLNO MD [place] [address] [address] 03/09/2024 10:17:23 03/09/2024 11:59:43 Monosomy X 630349441 Q96.9 Maternal o besity complicating , childbirth and the puerperium, antepartum 7569419534 07 O99.212 Gestation period, 38 weeks 20104165 Z3A.38 Health Concerns Section Related Observation LastModified by Organization Detai ls LastModified Time None Recorded Concern Status LastModified by Organization Details LastModified Time None Recorded Advance Directives Directive None Recorded Payers Encounter Date Sequence Insurance Name Policy Number Policy Kraus Covered Member ID Kraus Member ID Guarantor Name 03/03/2024 1 [employer] [place] [id number] Loulou Chang [id number] [facility] 03/04/2024 1 [employer] [place] [id number] Loulou Chang [id number] [facility] 03/09/2024 1 [employer] [place] [id number] 0003 Loulou Chang [id number] [facility] 03/09/2024 1 [employer] [place] [id number] 0003 Loulou Chang [id number] [facility] OBGyn Episode Ob Episode Information Episode Created Date Number of Fetuses Patient Bloodtype Patient rh Status Prepregnancy Weight lbs Domestic Partner Domestic Partner Phone Father Name Warehouse Packer Status 09/08/19 24 1 O Positive 244.2 OPEN Fetus Data First Name Last Name Admitted to NICU Weight (g) Sex Living Outcome Pediatric Complications Fetus ID Race Codes Race Delivery Type [id number] Problems Problem Notes MFM: 09/13 with genetic couns elor & GUEST ATTENDANT ultrasound, declined [facility]S10/11 @945 US & 11/08 945 [facility] Problem Name Start Date End Date Resolution Snomed Code Not e Body mass index 40+ - severely obese 128925844 weekly testin g @34wks Monosomy X 524612706 HR on NIP T, declined CVS/amniocentesis Angus [...] Date Ultra Sound Latest Days Gestation 0 [email or web address] 09/08/2023 03/22/20 24 0 Pre- Flowsheet Flowsheet Date 09/08/2023 Lewis Score Blood [...] Weight in lbs Pre/Post Dialysis Refused Weight 237.312314992059 BP Diastolic BP Location Tested BP Systolic BP Type 66 100 Fetus Heart Rate Present A 165 Fetus Movement Comments [facility]. Nausea improved, no bleeding or cramping. complicated by high risk NIPT for monosomy X. Referral sent to [facility]. Discussed amniocentesis for diagnostic testing. Discussed risks of monosomy X. NT/NB wnl today. Other OB labs wnl. RTC 4 weeks, will follow up [facility] referral. Flowsheet Date 10/07/2023 Lewis Score Blood Edema Fundus Height Fundus Units Glucose Ketones Leukocytes Nitrite Labor Signs Protein Cervic Dilation Cervic Effacement Cervic Station Type Weight in lbs Pre/Post Dialysis Refused Weight 236.214081960571 BP Diastolic BP Location Tested BP Systolic BP Type 72 116 Fetus Heart Rate Present A 160 Fetus Movement A No Comments Doing well, no movemen t yet. No cramping, bleeding or nausea. Saw [facility] for HR Monosomy X on NIPT, declined CVS/amnio. Has follow up visit with them on Thursday. Discussed anatomy US with [facility], otherwise normal care in 4 weeks. Flowsheet Date 11/10/2023 Lewis Score Blood Edema Fundus Height Fundus Units Glucose Ketones Leukocytes Nitrite Labor Signs Protein Cervic Dilation Cervic Effacement Cervic Station Type Weight in lbs Pre/Post Dialysis Refused Weight 237.813958824472 BP Diastolic BP Location Tested BP Systolic [...] Type Weight in lbs Pre/Post Dialysis Refused 238.165084836056 BP Diastolic BP Location Tested BP Systolic [...] Type Weight in lbs Pre/Post Dialysis Refused 243.673544598152 BP Diastolic BP Location Tested BP Systolic BP Type 76 L arm 122 sitting Fetus Heart Rate Present Fetus Movement A Yes Comments Good movement. No cram ping or bleeding. Repeat growth with MFM, EFW 75%. Continue serial growth US per MF. GCT and labs today. Discussed tdap vaccine. Desires EIL on 03/15 as partner is going to basic training for the army. 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 RTC 2 weeks. Flowsheet Date 01/20/2024 Lewis Score Blood Edema Fundus Height Fundus Units Glucose Ketones Leukocytes Nitrite Labor Signs Protein Cervic Dilation Cervic Effacement Cervic Station neg none none trace Type Weight in lbs Pre/Post Dialysis Refused Weight 246.188825855358 BP Diastolic BP Location Tested BP Systolic [...] Weight in lbs Pre/Post Dialysis Refused Weight 246.722824598290 BP Diastolic BP Location Tested BP Systolic BP Type 66 L arm 118 sitting Fetus Heart Rate Present Fetus Movement A Yes Comments Patient c/o of some nausea a nd John Paul Reyes. No bleeding. Good movement. Had MFM [...] Weight in lbs Pre/Post Dialysis Refused Weight 249.793672167554 BP Diastolic BP Location Tested BP Systolic [...] Weight in lbs Pre/Post Dialysis Refused Weight 247.101606826395 BP Diastolic BP Location Tested BP Systolic BP Type 77 122 Fetus Heart Rate Present Fetus Movement Comments Flowsheet Date 02/17/2024 Lewis Score Blood Edema Fundus Height Fundus Units Glucose Ketones Leukocytes Nitrite Labor Signs Protein Cervic Dilation Cervic Effacement Cervic Station none Type Weight in lbs Pre/Post Dialysis Refused Weight 247.923364433186 BP Diastolic BP Location Tested BP Systolic BP Type 247 122 Fetus Heart Rate Present Fetus Movement A Yes Comments Patient is having some cramp ing. bpp 1010, needs iron refill, precautions and education iol [...] Weight in lbs Pre/Post Dialysis Refused Weight 248.029401046946 BP Diastolic BP Location Tested BP Systolic [...] Type Weight in lbs Pre/Post Dialysis Refused 249.793864394094 BP Diastolic BP Location Tested BP Systolic [...] Weight in lbs Pre/Post Dialysis Refused Weight 248.959304464315 BP Diastolic BP Location Tested BP Systolic BP Type 74 L arm 118 sitting Fetus Heart Rate Present A 140 Fetus Movement A Yes Comments Good movement. No ctx, LOF, VB. Will move induction from 03/15 to 03/16 due to staffing issues at [place]. BPP 10/28 at [facility] Thursday, NST reactive today. Labor precautions reviewed. Menstrual History Last Menstrual Date Menses Monthly On Bcp Conception Prior Menses Frequency Hcg Plus Date Menarche Onset Age 0306/03/2023 Genetic Screening And Infection History Question Response Note Mental Retardation/Autism false Patient's Age Will Be 35 Years Or Older At Estim ated Date of Delivery false Thalassemia (Kittitian, Cypriot, Mediterranean, Or Background): MCV < 80 false Neural Tube Defect (Meningomyelocele, Spina Bifi da, Or Anencephaly) false Congenital Heart Defect false Down Syndrome false Ben-Sachs (eg, Adventism, Cajun, Pakistani-[place]) f alse Juve Disease false Sickle Cell Disease Or Trait () false Hemophilia Or Other Blood Disorders false Muscular Dystrophy false Cystic Fibrosis false [place]'s Chorea false Intellectual Disability/Autism false If Yes, [...]
--- OUTSIDE RECORDS SUMMARY | 2024-03-24 00:25 | XMS_ITS | Continuity of Care Document ---
Author Organization [facility] [place] Address [address] [place] [address] Assessment Encounter Date Assessment Date Assessment LastModified by Organization Details LastModified Time 02/17/2024 02/17/2024 Patient is __35_weeks . Discussed plan. [email or web address] Not available 02/17/2024 12:01:13 Plan of Treatment Reminders Order Date Submit Date Provider Last Modified By Organization Details Last Modified Time Details Appointments SURG POST OP 2024 10:45A Dayton COLON MD Not available Not available Not available Lab None recorded . Referral None recorded . Procedures None recorded . Surgeries None recorded . Imaging None recorded . Medication Orders ferrous sulfate 325 mg (65 mg iron) tablet [address] [id number], [address] [place], [place], [id number], 02/17/2024 12:02:21 Patient TargetsNo targets recorded. Patient InstructionsNo instructions recorded. Reason for Referral None Reported. Results Created Date Observation Date Name Description Value Unit Range Abnormal Flag Note LastModifiedBy Organization Detail LastModifiedTime 09/08/19 24 09/08/2023 US, obste tric, nucha l trans lucen cy No observ ation record ed. R[place] [address], [place], [address], 09/10/2023 10:53:56 09/08/19 24 09/08/2023 US, obste tric, nucha l trans lucen cy No observ ation record ed. [email or web address] [place] [address], [place], [address], 09/08/2023 13:17:08 09/14/19 24 09/14/2023 US, obste tric, follo w-up No observ ation record ed. [email or web address] [facility] [address] [facility], [place], [address], 09/16/2023 14:33:23 09/14/19 24 09/14/2023 US, obste tric, trans abdom inal No observ ation record ed. [facility] [address], [place], [address], 09/15/2023 15:09:15 10/12/19 24 10/12/2023 US, obste tric No observ ation record ed. [email or web address] [facility] [address], [place], [address], 10/13/2023 16:44:42 11/09/19 24 11/09/2023 US, obste tric, follo w-up No observ ation record ed. [email or web address] [facility] [address], [place], [address], 11/10/2023 16:45:37 12/07/19 24 12/07/2023 imagi ng/di agnos tic resul t No observ ation record ed. [facility] [address], [place], [address], 12/11/2023 10:32:37 01/04/20 24 01/04/2024 imagi ng/di agnos tic resul t No observ ation record ed. [facility] [address], [place], [address], 01/07/2024 12:12:29 02/02/20 24 02/01/2024 US, obste tric, follo w-up No observ ation record ed. [email or web address] [facility] [address] [facility], [place], [address], 02/04/2024 10:30:16 02/10/20 24 02/10/2024 non-s tress test No observ ation record ed. [email or web address] [place] [address], [place], [address], 02/10/2024 11:58:14 02/10/20 24 02/10/2024 US, obste tric, bioph ysica l profi le + non-s tress test No observ ation record ed. [email or web address] [place] [address], [place], [address], 02/10/2024 12:45:48 02/10/20 24 02/10/2024 US, obste tric, bioph ysica l profi le + non-s tress test No observ ation record ed. [email or web address] [address], [place], [address], 02/10/2024 22:00:22 02/17/20 24 02/17/2024 US, obste tric, bioph ysica l profi le + non-s tress test No observ ation record ed. [email or web address] [place] [address], [place], [address], 02/17/2024 13:14:35 02/17/20 24 02/17/2024 US, obste tric, bioph ysica l profi le + non-s tress test No observ ation record ed. [email or web address] [address], [place], [address], 02/19/2024 01:03:22 02/17/20 24 02/17/2024 non-s tress test No observ ation record ed. [email or web address] [place] [address], [place], [address], 02/17/2024 18:46:39 02/17/20 non-s tress test No observ ation record ed. [place] [address], [place], [address], 02/17/2024 18:48:46 02/24/20 24 02/24/2024 US, obste tric, bioph ysica l profi le + non-s tress test No observ ation record ed. [facility] [address], [place], [address], 02/24/2024 14:24:08 02/24/20 24 02/24/2024 US, obste tric, follo w-up No observ ation record ed. [facility] [address], [place], [address], 02/24/2024 14:24:20 02/24/20 24 02/24/2024 US, obste tric, bioph ysica l profi le + non-s tress test No observ ation record ed. [address], [place], [address], 02/25/2024 11:50:17 02/24/20 24 02/24/2024 non-s tress test No observ ation record ed. [email or web address] [place] [address], [place], [address], 02/24/2024 12:00:12 03/01/20 24 02/29/2024 imagi ng/di agnos tic resul t No observ ation record ed. [facility] [address] [place] [address], [address], 03/01/2024 17:20:31 03/03/20 24 03/03/2024 US, obste tric, bioph ysica l profi le + non-s tress test No observ ation record ed. [email or web address] [place] [address], [place], [address], 03/03/2024 12:20:34 03/03/20 24 03/03/2024 US, obste tric, bioph ysica l profi le + non-s tress test No observ ation record ed. [email or web address] [address], [place], [address], 03/03/2024 20:54:47 03/03/20 24 03/03/2024 non-s tress test No observ ation record ed. [email or web address] [place] [address], [place], [address], 03/03/2024 14:58:50 03/08/20 24 03/07/2024 imagi ng/di agnos tic resul t No observ ation record ed. [facility] [address], [address], 03/09/2024 00:46:18 03/09/20 24 03/09/2024 non-s tress test No observ ation record ed. [email or web address] [place] [address], [place], [address], 03/09/2024 11:26:46 03/14/20 24 03/14/2024 imagi ng/di agnos tic resul t No observ ation record ed. [facility] [address], [address], 03/14/2024 13:30:26 03/17/20 24 03/14/2024 US, obste tric, follo w-up No observ ation record ed. [facility] [address] [place], [address], 03/20/2024 15:27:00 Result Notes None recorded. Problems Name Problem SNOMED Code Status Onset Date Resolution Date Notes Provider Name and Address Organization Details Recorded Time 57021174 Active 2023 Jennie shah, [facility] 4 12:13:08 Monosomy X 930166770 Active HR on NIPT, declined CVS/amnio centesis HEIDI COLON MD [address], [place], [address], [facility] 4 12:18:50 Monosomy X 107339512 Active HR on NIPT, declined CVS/amnio centesis HEIDI COLON MD [address], [place], [address], [facility] 4 12:18:50 Body mass index 40+ - severely obese 362605693 Active weekly testing @34wks Jillian shah, [facility] 4 15:45:52 Problem Notes None [...] sex Body mass index (BMI) Body weight Body height Body mass index (BMI) Percentile per age and sex Body mass index (BMI) Body weight Systolic blood pressure Diastolic blood pressure Systolic blood pressure Diastolic blood pressure Provider Name and Address Organization Details Last Updated DateTime 162.56 cm 99.22 % 42.4 kg/m2 677526. 32 g 162.56 cm 99.22 % 42.4 kg/m2 640669. 32 g 122 mm[Hg] 247 mm[Hg] 122 mm[Hg] 77 mm[Hg] Tammie Haddad [facility] 18:45:26 Social History Question Answer Notes LastModified by Organizat ion Details LastModified Time Tobacco Smoking Status Never Smoker Susana Dove alyssa, [facility] 2023 15:08:14 What Is Your [...] Or The Highest Degree You Have Received? [id number] Information not available 2023 Are There Any [...] Anxious, Or Unable To Sleep At Night)? [id number] Information not available 2023 Do You Use Any Illicit Or Recreational Drugs? No Information not available 2023 Do You Use Sunscreen Routinely? No Information not available 2023 Have You Used IV Drugs? No Information not available 2023 Sex: Unknown Functional Status Question Answer Note LastModified by Organizat ion Details LastModified Time Do you have difficulty walking or climbing stairs? No [email or web address] Information not available 01/06/2024 Are you able to walk? YESWOREST Information not available 2023 Are you able to care for yourself? Yes Information not available 01/06/2024 Do you have difficulty dressing or bathing? No [email or web address] Information not available 01/06/2024 What is your exercise level? Moderate Information not available 2023 Mental Status None recorded. Family History Relationship Description Onset Age of this Age Resolved Age Notes LastModified by Organization Details LastModified Time Mother Essential hypertension [email or web address] Not available 11:50:07 Medical History Condition Response Allergies (Food, seasonal, environmental ) Y Other N Breast Cancer N Drug/Latex Allergies/Reactions N Blood Transfusion N Dermatologic Disorders N Lung Disease N Defects or Inherited Disease N Breast Problem N Gestational Diabetes N Hematologic disorders N Anesthesia Complications N History of STI N Deep Vein Thrombosis N Polycystic ovary syndrome N Anxiety Disorder N Autoimmune disease N Arthritis N Infertility N Polyps N Acid Reflux (GERD) N History of abnormal pap N Cancer N Stroke N Varicosities N Neurologic/Epilepsy N Endometriosis N High Cholesterol N Headaches N Fibromyalgia N Kidney Disease N Heart Problems N Kidney or Bladder Problems N Thyroid Problems N GI Problems N Eating Disorder [...] Diagnosis/Indication Diagnosis SNOMED-CT Code Diagnosis ICD10 Code [id number] HEIDI COLON MD [place] [address],[place] [address] 01/20/2024 11:06:31 01/20/2024 12:07:38 Anemia of 14375869 O99.019 Maternal o besity complicating , childbirth and the puerperium, antepartum 3762756586 07 O99.212 Gestation period, 31 weeks 75095683 Z3A.31 [id number] HEIDI COLON MD [place] [address],[place] [address] 02/03/2024 10:35:23 02/03/2024 11:50:26 Nausea and vomiting 90474188 R11.2 Gestation period, 33 weeks 06471893 Z3A.33 Monosomy X 026914033 Q96 .9 [id number] [facility] [address],[place] [address] 02/10/2024 11:07:14 02/10/2024 12:40:48 Gestation period, 34 weeks 30292448 Z3A.34 Monosomy X 527104431 Q96 .9 [id number] Corin Hcristina [place] [address],[place] [address] 02/10/2024 11:06:55 02/10/2024 12:05:49 Maternal obesity complicating , childbirth and the puerperium, antepartum 7679740381 07 O99.215 [id number] [facility] [address],[place] [address] 02/10/2024 11:17:13 02/10/2024 12:10:38 Maternal obesity complicating , childbirth and the puerperium, antepartum 1570029802 07 O99.213 Z3A.34 [id number] Tyra Miller [place] [address],[place] [address] 02/17/2024 10:40:25 02/17/2024 11:08:31 Maternal obesity complicating , childbirth and the puerperium, antepartum 2682697516 07 O99.213 Z3A.35 [id number] Tammie Haddad [place] [address],[place] [address] 02/17/2024 10:40:37 02/20/2024 03:50:45 Maternal obesity complicating , childbirth and the puerperium, antepartum 3042281669 07 O99.213 [id number] [facility] [address],[place] [address] 02/17/2024 10:41:04 02/17/2024 12:08:39 Gestation period, 35 weeks 47845316 Z3A.35 Anemia 371452564 D64.9 Health Concerns Section Related Observation LastModified by Organization Detai ls LastModified Time None Recorded Concern Status LastModified by Organization Details LastModified Time None Recorded Payers Encounter Date Sequence Insurance Name Policy Number Policy Kraus Covered Member ID Kraus Member ID Guarantor Name 02/17/2024 1 [facility] (MEDICAID HMO) [id number] Loulou Chang [id number] Dudley Solomon Episode Ob Episode Information Episode Created Date Number of Fetuses Patient Bloodtype Patient rh Status Prepregnancy Weight lbs Domestic Partner Domestic Partner Phone Father Name Pleat Patternmaker Status 09/08/19 24 1 O Positive 244.2 OPEN Fetus Data First Name Last Name Admitted to NICU Weight (g) Sex Living Outcome Pediatric Complications Fetus ID Race Codes Race Delivery Type [id number] Problems Problem Notes MFM: 09/13 with genetic couns elor & [employer] ultrasound, declined CVS10/11 @945 US & 11/08 945 US [facility] Problem Name Start Date End Date Resolution Snomed Code Not e Body mass index 40+ - severely obese 947806776 weekly testin g @34wks Monosomy X 699794359 HR on NIP T, declined CVS/amniocentesis Angus [...] Date Ultra Sound Latest Days Gestation 0 [email or web address] 09/08/2023 03/22/20 24 0 Pre-jerri Flowsheet Flowsheet [...] Weight in lbs Pre/Post Dialysis Refused Weight 237.336843440659 BP Diastolic BP Location Tested BP Systolic BP Type 66 100 Fetus Heart Rate Present A 165 Fetus Movement Comments Patient presents to [facility] care. Nausea improved, no bleeding or cramping. complicated by high risk NIPT for monosomy X. Referral sent to [facility]. Discussed amniocentesis for diagnostic testing. Discussed risks of monosomy X. NT/NB wnl today. Other OB labs wnl. RTC 4 weeks, will follow up [facility] referral. Flowsheet Date 10/07/2023 Lewis Score Blood Edema Fundus Height Fundus Units Glucose Ketones Leukocytes Nitrite Labor Signs Protein Cervic Dilation Cervic Effacement Cervic Station Type Weight in lbs Pre/Post Dialysis Refused Weight 236.608835911076 BP Diastolic BP Location Tested BP Systolic BP Type 72 116 Fetus Heart Rate Present A 160 Fetus Movement A No Comments Doing well, no movemen t yet. No cramping, bleeding or nausea. Saw [facility] for HR Monosomy X on NIPT, declined CVS/amnio. Has follow up visit with them on Thursday. Discussed anatomy US with [facility], otherwise normal care in 4 weeks. Flowsheet Date 11/10/2023 Lewis Score Blood Edema Fundus Height Fundus Units Glucose Ketones Leukocytes Nitrite Labor Signs Protein Cervic Dilation Cervic Effacement Cervic Station Type Weight in lbs Pre/Post Dialysis Refused Weight 237.063393983795 BP Diastolic BP Location Tested BP Systolic BP Type 61 108 Fetus Heart Rate Present A 145 Fetus Movement A Yes Comments Baby moving well. Had anatom y US with [facility] yesterday, incomplete but normal visualized anatomy. Repeat in 4 weeks with MFM. No cramping or bleeding. RTC 4 weeks. Flowsheet Date 12/09/2023 Lewis Score Blood Edema Fundus Height Fundus Units Glucose Ketones Leukocytes Nitrite Labor Signs Protein Cervic Dilation Cervic Effacement Cervic Station neg none trace Type Weight in lbs Pre/Post Dialysis Refused 238.619124599613 BP Diastolic BP Location Tested BP Systolic BP Type 75 L arm 111 sitting Fetus Heart Rate Present A 150 Fetus Movement A Yes Comments Pateint c/o of lower back pa in and lower pelvic pain. Discussed tylenol, ice/hot packs, and belly band. Good movement. Had repeat anatomy with MF, all normal; EFW 90%, growth US scheduled for 4 weeks with [facility]. Discussed GCT and labs for next visit. RTC 3-4 weeks. Flowsheet Date 01/06/2024 Lewis Score Blood Edema Fundus Height Fundus Units Glucose Ketones Leukocytes Nitrite Labor Signs Protein Cervic Dilation Cervic Effacement Cervic Station neg none none trace Type Weight in lbs Pre/Post Dialysis Refused 243.581365303005 BP Diastolic BP Location Tested BP Systolic BP Type 76 L arm 122 sitting Fetus Heart Rate Present Fetus Movement A Yes Comments Good movement. No cram ping or bleeding. Repeat growth with MFM, EFW 75%. Continue serial growth US per [facility]. GCT and labs today. Discussed tdap vaccine. Desires EIL on 03/15 as partner is going to basic training for the [employer]. 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 RTC 2 weeks. Flowsheet Date 01/20/2024 Lewis Score Blood Edema Fundus Height Fundus Units Glucose Ketones Leukocytes Nitrite Labor Signs Protein Cervic Dilation Cervic Effacement Cervic Station neg none none trace Type Weight in lbs Pre/Post Dialysis Refused Weight 246.969022053350 BP Diastolic BP Location Tested BP Systolic [...] Weight in lbs Pre/Post Dialysis Refused Weight 246.295530658484 BP Diastolic BP Location Tested BP Systolic [...] Weight in lbs Pre/Post Dialysis Refused Weight 249.770980816708 BP Diastolic BP Location Tested BP Systolic [...] Weight in lbs Pre/Post Dialysis Refused Weight 247.895440498561 BP Diastolic BP Location Tested BP Systolic BP Type 77 122 Fetus Heart Rate Present Fetus Movement Comments Flowsheet Date 02/17/2024 Lewis Score Blood Edema Fundus Height Fundus Units Glucose Ketones Leukocytes Nitrite Labor Signs Protein Cervic Dilation Cervic Effacement Cervic Station none Type Weight in lbs Pre/Post Dialysis Refused Weight 247.692649475649 BP Diastolic BP Location Tested BP Systolic [...] Present Fetus Movement Comments Flowsheet Date 02/24/2024 Lweis Score Blood Edema Fundus Height Fundus Units Glucose Ketones Leukocytes Nitrite Labor Signs Protein Cervic Dilation Cervic Effacement Cervic Station neg none 0cm 50% -3 Type Weight in lbs Pre/Post Dialysis Refused Weight 248.473958932734 BP Diastolic BP Location Tested BP Systolic [...] Type Weight in lbs Pre/Post Dialysis Refused 249.097712287098 BP Diastolic BP Location Tested BP Systolic [...] Weight in lbs Pre/Post Dialysis Refused Weight 248.367046404987 BP Diastolic BP Location Tested BP Systolic BP Type 74 L arm 118 sitting Fetus Heart Rate Present A 140 Fetus Movement A Yes Comments Good movement. No ctx, LOF, VB. Will move induction from 03/15 to 03/16 due to staffing issues at [facility]. BPP 10/28 at [facility] Thursday, NST reactive today. Labor precautions reviewed. Menstrual History Last Menstrual Date Menses Monthly On Bcp Conception Prior Menses Frequency Hcg Plus Date Menarche Onset Age 0306/03/2023 Genetic Screening And Infection History Question Response Note Mental Retardation/Autism false Patient's Age Will Be 35 Years Or Older At Estim ated Date of Delivery false Thalassemia (Uruguayan, Kinyarwanda, Mediterranean, Or Background): MCV < 80 false Neural Tube Defect (Meningomyelocele, Spina Bifi da, Or Anencephaly) false Congenital Heart Defect false Down Syndrome false Ben-Sachs (eg, Religious, Cajun, Solomon Islander-Mower) f alse Juve Disease false Sickle Cell Disease Or Trait () false Hemophilia Or Other Blood Disorders false Muscular Dystrophy false Cystic Fibrosis false Ren[place]'s Chorea false Intellectual Disability/Autism false If Yes, [...]
--- OUTSIDE RECORDS SUMMARY | 2024-03-24 00:25 | XMS_ITS | Continuity of Care Document ---
Author Organization [facility] [place] Address [address] [place] [address] Assessment Encounter Date Assessment Date Assessment LastModified by Organization Details LastModified Time 02/24/2024 02/24/2024 Patient is ___weeks . Discussed plan. [email or web address] Not available 02/24/2024 11:57:50 Plan of Treatment Reminders Order Date Submit Date Provider Last Modified By Organization Details Last Modified Time Details Appointments SURG POST OP 2024 10:45A Dayton COLON MD Not available Not available Not available Lab None recorded. Referral None recorded. Procedures None recorded. Surgeries None recorded. Imaging None recorded. Medication Orders ondansetr on 8 mg disintegr ating tablet 2023 024 [id number], [address], [place], [id number], 02/24/2024 12:28:10 Patient TargetsNo targets recorded. Patient InstructionsNo instructions recorded. Reason for Referral None Reported. Results Created Date Observation Date Name Description Value Unit Range Abnormal Flag Note LastModifiedBy Organization Detail LastModifiedTime 09/08/19 24 09/08/2023 US, obste tric, nucha l trans lucen cy No observ ation record ed. [address], [place], [address], 09/10/2023 10:53:56 09/08/19 24 09/08/2023 US, obste tric, nucha l trans lucen cy No observ ation record ed. [email or web address] [place] [address], [place], [address], 09/08/2023 13:17:08 09/14/19 24 09/14/2023 US, obste tric, follo w-up No observ ation record ed. [email or web address] [facility] [address], [place], [address], 09/16/2023 14:33:23 09/14/19 24 09/14/2023 US, obste tric, trans abdom inal No observ ation record ed. [email or web address] [facility] [address], [place], [address], 09/15/2023 15:09:15 10/12/19 24 10/12/2023 US, obste tric No observ ation record ed. [email or web address] [facility] [address], [place], [address], 10/13/2023 16:44:42 11/09/19 24 11/09/2023 US, obste tric, follo w-up No observ ation record ed. [email or web address] [facility] [address], [place], [address], 11/10/2023 16:45:37 12/07/19 24 12/07/2023 imagi ng/di agnos tic resul t No observ ation record ed. [facility] [address], [place], [address], 12/11/2023 10:32:37 01/04/20 24 01/04/2024 imagi ng/di agnos tic resul t No observ ation record ed. [facility] [address], [place], [address], 01/07/2024 12:12:29 02/02/20 24 02/01/2024 US, obste tric, follo w-up No observ ation record ed. [email or web address] [facility] [address], [place], [address], 02/04/2024 10:30:16 02/10/20 24 02/10/2024 non-s tress test No observ ation record ed. [email or web address] [place] [address], [place], [address], 02/10/2024 11:58:14 02/10/20 24 02/10/2024 US, obste tric, bioph ysica l profi le + non-s tress test No observ ation record ed. [email or web address] [place] [address], [place], [address], 02/10/2024 12:45:48 02/10/20 24 02/10/2024 US, obste tric, bioph ysica l profi le + non-s tress test No observ ation record ed. [email or web address] [address], [place], [address], 02/10/2024 22:00:22 02/17/20 24 02/17/2024 US, obste tric, bioph ysica l profi le + non-s tress test No observ ation record ed. [email or web address] [place] [address], [place], [address], 02/17/2024 13:14:35 02/17/20 24 02/17/2024 US, obste tric, bioph ysica l profi le + non-s tress test No observ ation record ed. [email or web address] [address], [place], [address], 02/19/2024 01:03:22 02/17/20 24 02/17/2024 non-s tress test No observ ation record ed. [place] [address], [place], [address], 02/17/2024 18:46:39 02/17/20 non-s tress test No observ ation record ed. [email or web address] [place] [address], [place], [address], 02/17/2024 18:48:46 02/24/20 24 02/24/2024 US, obste tric, bioph ysica l profi le + non-s tress test No observ ation record ed. [facility] [address], [place], [address], 02/24/2024 14:24:08 02/24/20 24 02/24/2024 US, obste tric, follo w-up No observ ation record ed. [facility] [address], [place], [address], 02/24/2024 14:24:20 02/24/20 24 02/24/2024 US, obste tric, bioph ysica l profi le + non-s tress test No observ ation record ed. [email or web address] [address], [place], [address], 02/25/2024 11:50:17 02/24/20 24 02/24/2024 non-s tress test No observ ation record ed. [email or web address] [place] [address], [place], [address], 02/24/2024 12:00:12 03/01/20 24 02/29/2024 imagi ng/di agnos tic resul t No observ ation record ed. [facility] [address] [place] [address], [address], 03/01/2024 17:20:31 03/03/20 24 03/03/2024 US, obste tric, bioph ysica l profi le + non-s tress test No observ ation record ed. [email or web address] [place] [address], [place], [address], 03/03/2024 12:20:34 03/03/20 24 03/03/2024 US, obste tric, bioph ysica l profi le + non-s tress test No observ ation record ed. [email or web address] [address], [place], [address], 03/03/2024 20:54:47 03/03/20 24 03/03/2024 non-s tress test No observ ation record ed. [email or web address] [place] [address], [place], [address], 03/03/2024 14:58:50 03/08/20 24 03/07/2024 imagi ng/di agnos tic resul t No observ ation record ed. [facility] [address], [address], 03/09/2024 00:46:18 03/09/20 24 03/09/2024 non-s tress test No observ ation record ed. [email or web address] [place] [address], [place], [address], 03/09/2024 11:26:46 03/14/20 24 03/14/2024 imagi ng/di agnos tic resul t No observ ation record ed. [facility] [address], [address], 03/14/2024 13:30:26 03/17/20 24 03/14/2024 US, obste tric, follo w-up No observ ation record ed. [facility] [address] [place], [address], 03/20/2024 15:27:00 Result Notes None recorded. Problems Name Problem SNOMED Code Status Onset Date Resolution Date Notes Provider Name and Address Organization Details Recorded Time 19186492 Active 2023 Jennie shah, [facility] 4 12:13:08 Monosomy X 209638959 Active HR on NIPT, declined [facility] HEIDI COLON MD [address], [place], [address], [facility] 4 12:18:50 Monosomy X 989869465 Active HR on NIPT, declined [facility]am[facility] centesis HEIDI COLON MD [address], [place], [address], [facility] 4 12:18:50 Body mass index 40+ - severely obese 894912553 Active weekly testing @34wks Jillian shah, [facility] 4 15:45:52 Problem Notes None recorded. [...] active Not Available Not Available Not Avai labzaria WesTab Plus 27 mg iron-1 mg tablet TAKE 1 TABLET BY MOUTH EVERY DAY 02/09 completed Not Available Not Available Not Available Vitals Date Recorded Body height Body mass index (BMI) Percentile per age and sex Body mass index (BMI) Body weight Systolic blood pressure Diastolic blood pressure Provider Name and Address Organization Details Last Updated DateTime 4 162.56 cm 99.26 % 42.6 kg/m2 485079. 91 g 116 mm[Hg] 71 mm[Hg] Maude Peterson [facility] 11:58:46 Social History Question Answer Notes LastModified by Organizat ion Details LastModified Time Tobacco Smoking Status Never Smoker Susana Dove [facility] 2023 15:08:14 What Is Your Level [...] Or The Highest Degree You Have Received? HF62086-7 Information not available 2023 Are There Any [...] Anxious, Or Unable To Sleep At Night)? [id number] Information not available 2023 Do You Use Any Illicit Or Recreational Drugs? No Information not available 2023 Do You Use Sunscreen Routinely? No Information not available 2023 Have You Used IV Drugs? No Information not available 2023 Sex: Unknown Functional Status Question Answer Note LastModified by Organizat ion Details LastModified Time Do you have difficulty walking or climbing stairs? No [email or web address] Information not available 01/06/2024 Are you able to walk? YESWOREST Information not available 2023 Are you able to care for yourself? Yes [email or web address] Information not available 01/06/2024 Do you have difficulty dressing or bathing? No [email or web address] Information not available 01/06/2024 What is your [...] Diagnosis/Indication Diagnosis SNOMED-CT Code Diagnosis ICD10 Code 777063 HEIDI COLON MD [place] [address] [address] 02/03/2024 10:35:23 02/03/2024 11:50:26 Nausea and vomiting 65145036 R11.2 Gestation period, 33 weeks 12296223 Z3A.33 Monosomy X 702884132 Q96 .9 [id number] [facility] [address],[place] [address] 02/10/2024 11:07:14 02/10/2024 12:40:48 Gestation period, 34 weeks 53329146 Z3A.34 Monosomy X 434690814 Q96 .9 [id number] Corin Vasquez [place] [address] [address] 02/10/2024 11:06:55 02/10/2024 12:05:49 Maternal obesity complicating , childbirth and the puerperium, antepartum 3279392413 07 O99.215 [id number] [facility] [address],[place] [address] 02/10/2024 11:17:13 02/10/2024 12:10:38 Maternal obesity complicating , childbirth and the puerperium, antepartum 4503631875 07 O99.[id number] [facility] [address] [address] 02/17/2024 10:40:25 02/17/2024 11:08:31 Maternal obesity complicating , childbirth and the puerperium, antepartum 0271153862 07 O99.213 Z3A.35 [id number] Tammie Haddad [place] [address] [address] 02/17/2024 10:40:37 02/20/2024 03:50:45 Maternal obesity complicating , childbirth and the puerperium, antepartum 6281958599 07 O99.213 [id number] Carlene Macias CNM [place] [address] [address] 02/17/2024 10:41:04 02/17/2024 12:08:39 Gestation period, 35 weeks 92331825 Z3A.35 Anemia 456993189 D64.9 [id number] Anamaria Carydyan [place] [address] [address] 02/24/2024 10:19:19 02/24/2024 11:26:08 Abnormal hematologic finding on screening of mother 920868624 O28.0 O99.210 O36.60X0 Z3A.36 [id number] Maude Peterson [place] [address] [address] 02/24/2024 10:19:35 02/24/2024 12:16:41 Maternal obesity complicating , childbirth and the puerperium, antepartum 9981447974 07 O99.212 [id number] HEIDI COLON MD [place] [address] [address] 02/24/2024 10:19:50 02/24/2024 12:29:46 Nausea and vomiting 42006891 R11.2 Monosomy X 251755141 Q96 .9 Maternal o besity complicating , childbirth and the puerperium, antepartum 8538802952 07 O99.212 Gestation period, 36 weeks 72199500 Z3A.36 Health Concerns Section Related Observation LastModified by Organization Detai ls LastModified Time None Recorded Concern Status LastModified by Organization Details LastModified Time None Recorded Payers Encounter Date Sequence Insurance Name Policy Number Policy Kraus Covered Member ID Kraus Member ID Guarantor Name 02/24/2024 1 [facility] (MEDICAID HMO) [id number] Loulou Chang [id number] Dudley Natarajan OBGyn Episode Ob Episode Information Episode Created Date Number of Fetuses Patient Bloodtype Patient rh Status Prepregnancy Weight lbs Domestic Partner Domestic Partner Phone Father Name Payroll Technician Status 09/08/19 24 1 O Positive 244.2 OPEN Fetus Data First Name Last Name Admitted to NICU Weight (g) Sex Living Outcome Pediatric Complications Fetus ID Race Codes Race Delivery Type [id number] Problems Problem Notes [facility]: 09/13 with genetic couns elor & [employer] [facility] ultrasound, declined [facility]10/11 @945 US & 11/08 945 US [facility] Problem Name Start Date End Date Resolution Snomed Code Not e Body mass index 40+ - severely obese 642521242 weekly testin g @34wks Monosomy X 849364143 HR on NIP T, declined [facility]/amniocentesis Angus [...] Date Ultra Sound Latest Days Gestation 0 [email or web address] 09/08/2023 03/22/20 24 0 Pre-jerri Flowsheet Flowsheet [...] Weight in lbs Pre/Post Dialysis Refused Weight 237.817078793216 BP Diastolic BP Location Tested BP Systolic BP Type 66 100 Fetus Heart Rate Present A 165 Fetus Movement Comments Patient presents to [facility] care. Nausea improved, no bleeding or cramping. complicated by high risk NIPT for monosomy X. Referral sent to [facility]. Discussed amniocentesis for diagnostic testing. Discussed risks of monosomy X. NT/NB wnl today. Other OB labs wnl. RTC 4 weeks, will follow up MFM referral. Flowsheet Date 10/07/2023 Lewis Score Blood Edema Fundus Height Fundus Units Glucose Ketones Leukocytes Nitrite Labor Signs Protein Cervic Dilation Cervic Effacement Cervic Station Type Weight in lbs Pre/Post Dialysis Refused Weight 236.111306387877 BP Diastolic BP Location Tested BP Systolic [...] Weight in lbs Pre/Post Dialysis Refused Weight 237.459191577873 BP Diastolic BP Location Tested BP Systolic [...] Type Weight in lbs Pre/Post Dialysis Refused 238.827145457255 BP Diastolic BP Location Tested BP Systolic [...] Type Weight in lbs Pre/Post Dialysis Refused 243.725148243841 BP Diastolic BP Location Tested BP Systolic BP Type 76 L arm 122 sitting Fetus Heart Rate Present Fetus Movement A Yes Comments Good movement. No cram ping or bleeding. Repeat growth with MFM, EFW 75%. Continue serial growth US per [facility]. GCT and labs today. Discussed tdap vaccine. Desires EIL on 03/15 as partner is going to basic training for the army. Discussed SP radiation control worker, patient will make appointmetns with her to meet and discuss EIL. RTC 2 weeks. Flowsheet Date 01/20/2024 Lewis Score Blood Edema Fundus Height Fundus Units Glucose Ketones Leukocytes Nitrite Labor Signs Protein Cervic Dilation Cervic Effacement Cervic Station neg none none trace Type Weight in lbs Pre/Post Dialysis Refused Weight 246.527429185526 BP Diastolic BP Location Tested BP Systolic [...] Weight in lbs Pre/Post Dialysis Refused Weight 246.676467840465 BP Diastolic BP Location Tested BP Systolic [...] Weight in lbs Pre/Post Dialysis Refused Weight 249.197408586634 BP Diastolic BP Location Tested BP Systolic [...] Weight in lbs Pre/Post Dialysis Refused Weight 247.470590353355 BP Diastolic BP Location Tested BP Systolic BP Type 77 122 Fetus Heart Rate Present Fetus Movement Comments Flowsheet Date 02/17/2024 Lewis Score Blood Edema Fundus Height Fundus Units Glucose Ketones Leukocytes Nitrite Labor Signs Protein Cervic Dilation Cervic Effacement Cervic Station none Type Weight in lbs Pre/Post Dialysis Refused Weight 247.589498490323 BP Diastolic BP Location Tested BP Systolic [...] Weight in lbs Pre/Post Dialysis Refused Weight 248.988906870760 BP Diastolic BP Location Tested BP Systolic [...] Type Weight in lbs Pre/Post Dialysis Refused 249.207814791550 BP Diastolic BP Location Tested BP Systolic [...] Weight in lbs Pre/Post Dialysis Refused Weight 248.448624306936 BP Diastolic BP Location Tested BP Systolic BP Type 74 L arm 118 sitting Fetus Heart Rate Present A 140 Fetus Movement A Yes Comments Good movement. No ctx, LOF, VB. Will move induction from 03/15 to 03/16 due to staffing issues at [place]. BPP 10/28 at [facility] Thursday, NST reactive today. Labor precautions reviewed. Menstrual History Last Menstrual Date Menses Monthly On Bcp Conception Prior Menses Frequency Hcg Plus Date Menarche Onset Age 0306/03/2023 Genetic Screening And Infection History Question Response Note Mental Retardation/Autism false Patient's Age Will Be 35 Years Or Older At Estim ated Date of Delivery false Thalassemia (Nicaraguan, Mauritanian, Mediterranean, Or Background): MCV < 80 false Neural Tube Defect (Meningomyelocele, Spina Bifi da, Or Anencephaly) false Congenital Heart Defect false Down Syndrome false Ben-Sachs (eg, Religion, Cajun, Kyrgyz-Giles) f alse Juve Disease false Sickle Cell Disease Or Trait () false Hemophilia Or Other Blood Disorders false Muscular Dystrophy false Cystic Fibrosis false Austin's Chorea false Intellectual Disability/Autism false If Yes, [...]
--- OUTSIDE RECORDS SUMMARY | 2024-03-24 00:25 | XMS_ITS | Continuity of Care Document ---
Author Organization [facility] [place] Address [address] [place] [address] [place] [address] Assessment No assessment recorded. Plan of Treatment Reminders Order Date Submit Date Provider Last Modified By Organization Details Last Modified Time Details Appointments SURG POST OP 2024 10:45A Datyon COLON MD Not available Not available Not available Lab None recorded. Referral None recorded. Procedures None recorded. Surgeries None recorded. Imaging US, obstetric , biophysic al profile + non-stres s test [address] [facility] [address], [place], [address], 02/24/2024 14:14:53 US, obstetric , follow-up [address] [facility] [address], [place], [address], 02/24/2024 14:14:53 Medication Orders None recorded. Patient TargetsNo targets recorded. Patient InstructionsNo instructions recorded. Reason for Referral None Reported. Results Created Date Observation Date Name Description Value Unit Range Abnormal Flag Note LastModifiedBy Organization Detail LastModifiedTime 09/08/19 24 09/08/2023 US, obste tric, nucha l trans lucen cy No observ ation record ed. RENOEARNEST [address], [place], [address], 09/10/2023 10:53:56 09/08/19 24 09/08/2023 US, obste tric, nucha l trans lucen cy No observ ation record ed. [email or web address] [place] [address], [place], [address], 09/08/2023 13:17:08 09/14/19 24 09/14/2023 US, obste tric, follo w-up No observ ation record ed. [email or web address] [facility] [address], [place], [address], 09/16/2023 14:33:23 09/14/19 24 09/14/2023 US, obste tric, trans abdom inal No observ ation record ed. [place] [address] [facility] [address], [place], [address], 09/15/2023 15:09:15 10/12/19 24 10/12/2023 US, obste tric No observ ation record ed. [place] [address] [facility] [address], [place], [address], 10/13/2023 16:44:42 11/09/19 24 11/09/2023 US, obste tric, follo w-up No observ ation record ed. [email or web address] [facility] [address], [place], [address], 11/10/2023 16:45:37 12/07/19 24 12/07/2023 imagi ng/di agnos tic resul t No observ ation record ed. [facility] [address], [place], [address], 12/11/2023 10:32:37 01/04/20 24 01/04/2024 imagi ng/di agnos tic resul t No observ ation record ed. [facility] [address], [place], [address], 01/07/2024 12:12:29 02/02/20 24 02/01/2024 US, obste tric, follo w-up No observ ation record ed. [facility] [address], [place], [address], 02/04/2024 10:30:16 02/10/20 24 02/10/2024 non-s tress test No observ ation record ed. [email or web address] [place] [address], [place], [address], 02/10/2024 11:58:14 02/10/20 24 02/10/2024 US, obste tric, bioph ysica l profi le + non-s tress test No observ ation record ed. [email or web address] [place] [address], [place], [address], 02/10/2024 12:45:48 02/10/20 24 02/10/2024 US, obste tric, bioph ysica l profi le + non-s tress test No observ ation record ed. [email or web address] [facility] [address], [place], [address], 02/10/2024 22:00:22 02/17/20 24 02/17/2024 US, obste tric, bioph ysica l profi le + non-s tress test No observ ation record ed. [email or web address] [place] [address], [place], [address], 02/17/2024 13:14:35 02/17/20 24 02/17/2024 US, obste tric, bioph ysica l profi le + non-s tress test No observ ation record ed. [email or web address] [address], [place], [address], 02/19/2024 01:03:22 02/17/20 24 02/17/2024 non-s tress test No observ ation record ed. [email or web address] [place] [address], [place], [address], 02/17/2024 18:46:39 02/17/20 non-s tress test No observ ation record ed. [email or web address] [place] [address], [place], [address], 02/17/2024 18:48:46 02/24/2002/24/2024 US, obste tric, bioph ysica l profi le + non-s tress test No observ ation record ed. [facility] [address], [place], [address], 02/24/2024 14:24:08 02/24/20 24 02/24/2024 US, obste tric, follo w-up No observ ation record ed. [facility] [address], [place], [address], 02/24/2024 14:24:20 02/24/20 24 02/24/2024 US, obste tric, bioph ysica l profi le + non-s tress test No observ ation record ed. [email or web address] [address] [address], [place], [address], 02/25/2024 11:50:17 02/24/2002/24/2024 non-s tress test No observ ation record ed. [email or web address] [place] [address], [place], [address], 02/24/2024 12:00:12 03/01/20 24 02/29/2024 imagi ng/di agnos tic resul t No observ ation record ed. [facility] [address] [place] [address], [address], 03/01/2024 17:20:31 03/03/20 24 03/03/2024 US, obste tric, bioph ysica l profi le + non-s tress test No observ ation record ed. [email or web address] [place] [address], [place], [address], 03/03/2024 12:20:34 03/03/20 24 03/03/2024 US, obste tric, bioph ysica l profi le + non-s tress test No observ ation record ed. [email or web address] [address], [place], [address], 03/03/2024 20:54:47 03/03/20 24 03/03/2024 non-s tress test No observ ation record ed. [facility] [address], [place], [address], 03/03/2024 14:58:50 03/08/20 24 03/07/2024 imagi ng/di agnos tic resul t No observ ation record ed. [facility] [address], [address], 03/09/2024 00:46:18 03/09/20 24 03/09/2024 non-s tress test No observ ation record ed. [place] [address], [place], [address], 03/09/2024 11:26:46 03/14/20 24 03/14/2024 imagi ng/di agnos tic resul t No observ ation record ed. [facility] [address], [address], 03/14/2024 13:30:26 03/17/20 24 03/14/2024 US, obste tric, follo w-up No observ ation record ed. [facility] [place], [address], 03/20/2024 15:27:00 Result Notes None recorded. Problems Name Problem SNOMED Code Status Onset Date Resolution Date Notes Provider Name and Address Organization Details Recorded Time 73209503 Active 2023 Jennie shah, [facility] 4 12:13:08 Monosomy X 364090111 Active HR on NIPT, declined CVS/amnio centesis HEIDI COLON MD [address], [place], [address], [facility] 4 12:18:50 Monosomy X 722617501 Active HR on NIPT, declined CVS/amnio centesis HEIDI COLON MD [address], [place], [address], [facility] 4 12:18:50 Body mass index 40+ - severely obese 522925031 Active weekly testing @34wks Jillian Mikel [facility], [facility] 4 15:45:52 Problem Notes None recorded. Procedures Surgical History None recorded. Imaging Results Imaging Date Name Status LastModified by Organiz ation Details LastModified Time 02/24/2024 US, obstetric, biophysical profile + non-stress test completed [facility] [address], [place], [address], 02/24/2024 14:24:08 02/24/2024 US, obstetric, follow-up completed [facility] [address], [place], [address], 02/24/2024 14:24:20 02/24/2024 US, obstetric, biophysical profile + non-stress test completed [email or web address] [address] [address], [place], [address], 02/25/2024 11:50:17 Procedure Notes None recorded. Medical Equipment None [...] Organization Details Last Updated DateTime 162.56 cm 99.26 % 42.6 kg/m2 839787. 91 g 116 mm[Hg] 71 mm[Hg] Maude Peterson [facility] 11:58:46 Social History Question Answer Notes LastModified by Organizat ion Details LastModified Time Tobacco Smoking Status Never Smoker Susana shah, [facility] 2023 15:08:14 What Is Your [...] Or The Highest Degree You Have Received? [id number] Information not available 2023 Are There Any [...] Anxious, Or Unable To Sleep At Night)? [id number] Information not available 2023 Do You Use Any Illicit Or Recreational Drugs? No Information not available 2023 Do You Use Sunscreen Routinely? No Information not available 2023 Have You Used IV Drugs? No Information not available 2023 Sex: Unknown Functional Status Question Answer Note LastModified by Organizat ion Details LastModified Time Do you have difficulty walking or climbing stairs? No [email or web address] Information not available 01/06/2024 Are you able to walk? YESWOREST Information not available 2023 Are you able to care for yourself? Yes [email or web address] Information not available 01/06/2024 Do you have difficulty dressing or bathing? No [email or web address] Information not available 01/06/2024 What is your [...] Diagnosis/Indication Diagnosis SNOMED-CT Code Diagnosis ICD10 Code 360983 HEIDI COLON MD [place] [address],[place] [address] 02/03/2024 10:35:23 02/03/2024 11:50:26 Nausea and vomiting 18868710 R11.2 Gestation period, 33 weeks 48385889 Z3A.33 Monosomy X 823721529 Q96 .9 [id number] Carlene Macias CNM [place] [address],[place] [address] 02/10/2024 11:07:14 02/10/2024 12:40:48 Gestation period, 34 weeks 85300598 Z3A.34 Monosomy X 123140786 Q96 .9 [id number] Corin Christina [facility] [address],[place] [address] 02/10/2024 11:06:55 02/10/2024 12:05:49 Maternal obesity complicating , childbirth and the puerperium, antepartum 0971160388 07 O99.215 [id number] [facility] [address],[place] [address] 02/10/2024 11:17:13 02/10/2024 12:10:38 Maternal obesity complicating , childbirth and the puerperium, antepartum 4864841509 07 O99.213 Z3A.34 [id number] [facility] [address],[place] [address] 02/17/2024 10:40:25 02/17/2024 11:08:31 Maternal obesity complicating , childbirth and the puerperium, antepartum 5932328684 07 O99.213 Z3A.35 [id number] Tammie Haddad [place] [address],[place] [address] 02/17/2024 10:40:37 02/20/2024 03:50:45 Maternal obesity complicating , childbirth and the puerperium, antepartum 9417167432 07 O99.213 [id number] Carlene Macias [facility] [address],[place] [address] 02/17/2024 10:41:04 02/17/2024 12:08:39 Gestation period, 35 weeks 92185887 Z3A.35 Anemia 498248891 D64.9 [id number] [facility] [address],[place] [address] 02/24/2024 10:19:19 02/24/2024 11:26:08 Abnormal hematologic finding on screening of mother 646859878 O28.0 O99.210 O36.60X0 Z3A.36 [id number] Maude Peterson [place] [address],[place] [address] 02/24/2024 10:19:35 02/24/2024 12:16:41 Maternal obesity complicating , childbirth and the puerperium, antepartum 2137898772 07 O99.212 [id number] HEIDI COLON MD [place] [address] [address] 02/24/2024 10:19:50 02/24/2024 12:29:46 Nausea and vomiting 40969746 R11.2 Monosomy X 889335412 Q96 .9 Maternal o besity complicating , childbirth and the puerperium, antepartum 3151753419 07 O99.212 Gestation period, 36 weeks 47712255 Z3A.36 Health Concerns Section Related Observation LastModified by Organization Detai ls LastModified Time None Recorded Concern Status LastModified by Organization Details LastModified Time None Recorded Payers Encounter Date Sequence Insurance Name Policy Number Policy Kraus Covered Member ID Kraus Member ID Guarantor Name 02/24/2024 1 [facility] (MEDICAID HMO) [id number] Loulou Chang [id number] Dudley Natarajan OBGyn Episode Ob Episode Information Episode Created Date Number of Fetuses Patient Bloodtype Patient rh Status Prepregnancy Weight lbs Domestic Partner Domestic Partner Phone Father Name Agricultural Research Director Status 09/08/19 24 1 O Positive 244.2 OPEN Fetus Data First Name Last Name Admitted to NICU Weight (g) Sex Living Outcome Pediatric Complications Fetus ID Race Codes Race Delivery Type [id number] Problems Problem Notes MFM: 09/13 with genetic couns elor & FUNCTIONAL MANAGER ultrasound, declined CVS10/11 @945 US & 11/08 945 US [facility] Problem Name Start Date End Date Resolution Snomed Code Not e Body mass index 40+ - severely obese 818597265 weekly testin g @34wks Monosomy X 413000409 HR on NIP T, declined CVS/amniocentesis Angus [...] Date Ultra Sound Latest Days Gestation 0 [email or web address] 09/08/2023 03/22/20 24 0 Pre- Flowsheet Flowsheet [...] Weight in lbs Pre/Post Dialysis Refused Weight 237.634306384359 BP Diastolic BP Location Tested BP Systolic BP Type 66 100 Fetus Heart Rate Present A 165 Fetus Movement Comments Patient presents to [facility] care. Nausea improved, no bleeding or cramping. complicated by high risk NIPT for monosomy X. Referral sent to [facility]. Discussed amniocentesis for diagnostic testing. Discussed risks of monosomy X. NT/NB wnl today. Other OB labs wnl. RTC 4 weeks, will follow up [facility] referral. Flowsheet Date 10/07/2023 Lewis Score Blood Edema Fundus Height Fundus Units Glucose Ketones Leukocytes Nitrite Labor Signs Protein Cervic Dilation Cervic Effacement Cervic Station Type Weight in lbs Pre/Post Dialysis Refused Weight 236.914841744414 BP Diastolic BP Location Tested BP Systolic BP Type 72 116 Fetus Heart Rate Present A 160 Fetus Movement A No Comments Doing well, no movemen t yet. No cramping, bleeding or nausea. Saw [facility] for HR Monosomy X on NIPT, declined CVS/amnio. Has follow up visit with them on Thursday. Discussed anatomy US with [facility], otherwise normal care in 4 weeks. Flowsheet Date 11/10/2023 Lewis Score Blood Edema Fundus Height Fundus Units Glucose Ketones Leukocytes Nitrite Labor Signs Protein Cervic Dilation Cervic Effacement Cervic Station Type Weight in lbs Pre/Post Dialysis Refused Weight 237.302807956710 BP Diastolic BP Location Tested BP Systolic BP Type 61 108 Fetus Heart Rate Present A 145 Fetus Movement A Yes Comments Baby moving well. Had anatom y US with [facility] yesterday, incomplete but normal visualized anatomy. Repeat in 4 weeks with MFM. No cramping or bleeding. RTC 4 weeks. Flowsheet Date 12/09/2023 Lewis Score Blood Edema Fundus Height Fundus Units Glucose Ketones Leukocytes Nitrite Labor Signs Protein Cervic Dilation Cervic Effacement Cervic Station neg none trace Type Weight in lbs Pre/Post Dialysis Refused 238.623832076134 BP Diastolic BP Location Tested BP Systolic BP Type 75 L arm 111 sitting Fetus Heart Rate Present A 150 Fetus Movement A Yes Comments Pateint c/o of lower back pa in and lower pelvic pain. Discussed tylenol, ice/hot packs, and belly band. Good movement. Had repeat anatomy with MFM, all normal; EFW 90%, growth US scheduled for 4 weeks with [facility]. Discussed GCT and labs for next visit. RTC 3-4 weeks. Flowsheet Date 01/06/2024 Lewis Score Blood Edema Fundus Height Fundus Units Glucose Ketones Leukocytes Nitrite Labor Signs Protein Cervic Dilation Cervic Effacement Cervic Station neg none none trace Type Weight in lbs Pre/Post Dialysis Refused 243.353400658251 BP Diastolic BP Location Tested BP Systolic BP Type 76 L arm 122 sitting Fetus Heart Rate Present Fetus Movement A Yes Comments Good movement. No cram ping or bleeding. Repeat growth with MF, EFW 75%. Continue serial growth US per [facility]. GCT and labs today. Discussed tdap vaccine. Desires EIL on 03/15 as partner is going to basic training for the [employer]. Discussed SP operations manager/coordinator, patient will make appointmetns with her to meet and discuss EIL. RTC 2 weeks. Flowsheet Date 01/20/2024 Lewis Score Blood Edema Fundus Height Fundus Units Glucose Ketones Leukocytes Nitrite Labor Signs Protein Cervic Dilation Cervic Effacement Cervic Station neg none none trace Type Weight in lbs Pre/Post Dialysis Refused Weight 246.698175062375 BP Diastolic BP Location Tested BP Systolic [...] Weight in lbs Pre/Post Dialysis Refused Weight 246.425346546841 BP Diastolic BP Location Tested BP Systolic [...] Weight in lbs Pre/Post Dialysis Refused Weight 249.635163654599 BP Diastolic BP Location Tested BP Systolic [...] Weight in lbs Pre/Post Dialysis Refused Weight 247.586529311494 BP Diastolic BP Location Tested BP Systolic BP Type 77 122 Fetus Heart Rate Present Fetus Movement Comments Flowsheet Date 02/17/2024 Lewis Score Blood Edema Fundus Height Fundus Units Glucose Ketones Leukocytes Nitrite Labor Signs Protein Cervic Dilation Cervic Effacement Cervic Station none Type Weight in lbs Pre/Post Dialysis Refused Weight 247.646890125830 BP Diastolic BP Location Tested BP Systolic [...] Weight in lbs Pre/Post Dialysis Refused Weight 248.302764643951 BP Diastolic BP Location Tested BP Systolic [...] Type Weight in lbs Pre/Post Dialysis Refused 249.697132323540 BP Diastolic BP Location Tested BP Systolic BP Type 70 116 Fetus Heart Rate Present A 145 Fetus Movement A Yes Comments Doing well, good movem ent. No cramping or bleeding. BPP 10 yesterday. GBS negative. SVE 0.5cm. Labor precautions [...] Weight in lbs Pre/Post Dialysis Refused Weight 248.127228702175 BP Diastolic BP Location Tested BP Systolic BP Type 74 L arm 118 sitting Fetus Heart Rate Present A 140 Fetus Movement A Yes Comments Good movement. No ctx, LOF, VB. Will move induction from 03/15 to 03/16 due to staffing issues at [facility]. BPP 10/28 at MFM Thursday, NST reactive today. Labor precautions reviewed. Menstrual History Last Menstrual Date Menses Monthly On Bcp Conception Prior Menses Frequency Hcg Plus Date Menarche Onset Age 0306/03/2023 Genetic Screening And Infection History Question Response Note Mental Retardation/Autism false Patient's Age Will Be 35 Years Or Older At Estim ated Date of Delivery false Thalassemia (Nicaraguan, Thai, Mediterranean, Or Background): MCV < 80 false Neural Tube Defect (Meningomyelocele, Spina Bifi da, Or Anencephaly) false Congenital Heart Defect false Down Syndrome false Ben-Sachs (eg, Scientologist, Cajun, Singaporean-[place]) f alse Juve Disease false Sickle Cell Disease Or Trait () false Hemophilia Or Other Blood Disorders false Muscular Dystrophy false Cystic Fibrosis false [place]'s Ch[place] false Intellectual Disability/Autism false If Yes, [...]
--- OUTSIDE RECORDS SUMMARY | 2024-03-24 00:25 | XMS_ITS | Continuity of Care Document ---
Author Organization [facility] Address [address] [place] [address] [place] [address] Assessment No assessment recorded. Plan of Treatment Reminders Order Date Submit Date Provider Last Modified By Organization Details Last Modified Time Details Appointments SURG POST OP 2024 10:45A M HEIDI COLON MD Not available Not available Not available Lab None recorded. Referral None recorded. Procedures None recorded. Surgeries None recorded. Imaging US, obstetric , biophysic al profile + non-stres s test 2023 024 [email or web address] [address], [address], [place], [address], 03/03/2024 20:39:40 Medication Orders None recorded. Patient TargetsNo targets recorded. Patient InstructionsNo instructions recorded. Reason for Referral None Reported. Results Created Date Observation Date Name Description Value Unit Range Abnormal Flag Note LastModifiedBy Organization Detail LastModifiedTime 09/08/1909/08/2023 US, obste tric, nucha l trans lucen cy No observ ation record ed. RENO [address], [place], [address], 09/10/2023 10:53:56 09/08/19 24 09/08/2023 US, obste tric, nucha l trans lucen cy No observ ation record ed. [email or web address] [facility] [address], [place], [address], 09/08/2023 13:17:08 09/14/19 24 09/14/2023 US, obste tric, follo w-up No observ ation record ed. [email or web address] [facility] [address], [place], [address], 09/16/2023 14:33:23 09/14/19 24 09/14/2023 US, obste tric, trans abdom inal No observ ation record ed. [place] [address] [facility] [address], [place], [address], 09/15/2023 15:09:15 10/12/19 24 10/12/2023 US, obste tric No observ ation record ed. [email or web address] [facility] [address], [place], [address], 10/13/2023 16:44:42 11/09/19 24 11/09/2023 US, obste tric, follo w-up No observ ation record ed. [email or web address] [facility] [address], [place], [address], 11/10/2023 16:45:37 12/07/19 24 12/07/2023 imagi ng/di agnos tic resul t No observ ation record ed. [facility] [address], [place], [address], 12/11/2023 10:32:37 01/04/20 24 01/04/2024 imagi ng/di agnos tic resul t No observ ation record ed. [facility] [address], [place], [address], 01/07/2024 12:12:29 02/02/20 24 02/01/2024 US, obste tric, follo w-up No observ ation record ed. [facility] [address], [place], [address], 02/04/2024 10:30:16 02/10/20 24 02/10/2024 non-s tress test No observ ation record ed. [email or web address] [facility] [address], [place], [address], 02/10/2024 11:58:14 02/10/20 24 02/10/2024 US, obste tric, bioph ysica l profi le + non-s tress test No observ ation record ed. [email or web address] [facility] [address], [place], [address], 02/10/2024 12:45:48 02/10/20 24 02/10/2024 US, obste tric, bioph ysica l profi le + non-s tress test No observ ation record ed. [email or web address] [address], [place], [address], 02/10/2024 22:00:22 02/17/20 24 02/17/2024 US, obste tric, bioph ysica l profi le + non-s tress test No observ ation record ed. [email or web address] [facility] [address], [place], [address], 02/17/2024 13:14:35 02/17/20 24 02/17/2024 US, obste tric, bioph ysica l profi le + non-s tress test No observ ation record ed. [email or web address] [address], [place], [address], 02/19/2024 01:03:22 02/17/20 24 02/17/2024 non-s tress test No observ ation record ed. [facility] [address], [place], [address], 02/17/2024 18:46:39 02/17/20 non-s tress test No observ ation record ed. [email or web address] [facility] [address], [place], [address], 02/17/2024 18:48:46 02/24/20 24 02/24/2024 US, obste tric, bioph ysica l profi le + non-s tress test No observ ation record ed. [facility] [address], [place], [address], 02/24/2024 14:24:08 02/24/20 24 02/24/2024 US, obste tric, follo w-up No observ ation record ed. [facility] [address], [place], [address], 02/24/2024 14:24:20 02/24/20 24 02/24/2024 US, obste tric, bioph ysica l profi le + non-s tress test No observ ation record ed. [email or web address] [address] [facility], [place], [address], 02/25/2024 11:50:17 02/24/20 24 02/24/2024 non-s tress test No observ ation record ed. [email or web address] [facility] [address], [place], [address], 02/24/2024 12:00:12 03/01/20 24 02/29/2024 imagi ng/di agnos tic resul t No observ ation record ed. [facility] [address] [place] [address], [address], 03/01/2024 17:20:31 03/03/20 24 03/03/2024 US, obste tric, bioph ysica l profi le + non-s tress test No observ ation record ed. [email or web address] [facility] [address], [place], [address], 03/03/2024 12:20:34 03/03/20 24 03/03/2024 US, obste tric, bioph ysica l profi le + non-s tress test No observ ation record ed. [email or web address] [address], [place], [address], 03/03/2024 20:54:47 03/03/20 24 03/03/2024 non-s tress test No observ ation record ed. [email or web address] [place] [address], [place], [address], 03/03/2024 14:58:50 03/08/20 24 03/07/2024 imagi ng/di agnos tic resul t No observ ation record ed. [facility] [address], [address], 03/09/2024 00:46:18 03/09/20 24 03/09/2024 non-s tress test No observ ation record ed. [email or web address] [place] [address], [place], [address], 03/09/2024 11:26:46 03/14/20 24 03/14/2024 imagi ng/di agnos tic resul t No observ ation record ed. [facility] [address], [address], 03/14/2024 13:30:26 03/17/20 24 03/14/2024 US, obste tric, follo w-up No observ ation record ed. [email or web address] [facility] [address] [place] [address], [address], 03/20/2024 15:27:00 Result Notes None recorded. Problems Name Problem SNOMED Code Status Onset Date Resolution Date Notes Provider Name and Address Organization Details Recorded Time 27555819 Active 2023 Jennie Grossman [facility], [facility] 4 12:13:08 Monosomy X 266549945 Active HR on NIPT, declined CVS/amnio centesis HEIDI COLON MD [address], [place], [address], [facility] 4 12:18:50 Monosomy X 321832270 Active HR on NIPT, declined CVS/amnio centesis HEIDI COLON MD [address], [place], [address], [facility] 4 12:18:50 Body mass index 40+ - severely obese 970984502 Active weekly testing @34wks Jillian Morin [facility] 4 15:45:52 Problem Notes None recorded. Procedures Surgical History None recorded. Imaging Results Imaging Date Name Status LastModified by Organiz ation Details LastModified Time 03/03/2024 US, obstetric, biophysical profile + non-stress test completed [email or web address] [facility] [address], [place], [address], 03/03/2024 12:20:34 03/03/2024 US, obstetric, biophysical profile + non-stress test completed [email or web address] [address], [place], [address], 03/03/2024 20:54:47 Procedure Notes None recorded. Medical Equipment None [...] Tobacco Smoking Status Never Smoker Susana Dove [facility] 2023 15:08:14 What Is Your [...] Or The Highest Degree You Have Received? [id number] Information not available 2023 Are There Any [...] Anxious, Or Unable To Sleep At Night)? [id number] Information not available 2023 Do You Use Any Illicit Or Recreational Drugs? No Information not available 2023 Do You Use Sunscreen Routinely? No Information not available 2023 Have You Used IV Drugs? No Information not available 2023 Sex: Unknown Functional Status Question Answer Note LastModified by Organizat ion Details LastModified Time Do you have difficulty walking or climbing stairs? No [email or web address] Information not available 01/06/2024 Are you able to walk? YESWOREST Information not available 2023 Are you able to care for yourself? Yes [email or web address] Information not available 01/06/2024 Do you have difficulty dressing or bathing? No [email or web address] Information not available 01/06/2024 What is your [...] Diagnosis/Indication Diagnosis SNOMED-CT Code Diagnosis ICD10 Code 412915 HEIDI COLON MD [facility] [address],[place] [address] 02/03/2024 10:35:23 02/03/2024 11:50:26 Nausea and vomiting 29968365 R11.2 Gestation period, 33 weeks 37710595 Z3A.33 Monosomy X 528230252 Q96 .9 [id number] [facility] [address],[place] [address] 02/10/2024 11:07:14 02/10/2024 12:40:48 Gestation period, 34 weeks 10651495 Z3A.34 Monosomy X 561796540 Q96 .9 [id number] Corin Vasquez [facility] [address],[place] [address] 02/10/2024 11:06:55 02/10/2024 12:05:49 Maternal obesity complicating , childbirth and the puerperium, antepartum 4807110815 07 O99.215 [id number] [facility] [address],[place] [address] 02/10/2024 11:17:13 02/10/2024 12:10:38 Maternal obesity complicating , childbirth and the puerperium, antepartum 7619229064 07 O99.213 Z3A.34 [id number] [facility] [address],[place] [address] 02/17/2024 10:40:25 02/17/2024 11:08:31 Maternal obesity complicating , childbirth and the puerperium, antepartum 8881101416 07 O99.213 Z3A.35 [id number] Tammie Haddad [facility] [address],[place] [address] 02/17/2024 10:40:37 02/20/2024 03:50:45 Maternal obesity complicating , childbirth and the puerperium, antepartum 6574603972 07 O99.213 [id number] Carlene Macias CNM [facility] [address],[place] [address] 02/17/2024 10:41:04 02/17/2024 12:08:39 Gestation period, 35 weeks 19579605 Z3A.35 Anemia 177752995 D64.9 [id number] Anamaria Ibanez [facility] [address],[place] [address] 02/24/2024 10:19:19 02/24/2024 11:26:08 Abnormal hematologic finding on screening of mother 846549628 O28.0 O99.210 O36.60X0 Z3A.36 [id number] Maude Peterson [facility] [address],[place] [address] 02/24/2024 10:19:35 02/24/2024 12:16:41 Maternal obesity complicating , childbirth and the puerperium, antepartum 1261390421 07 O99.212 [id number] HEIDI COLON MD [facility] [address],[place] [address] 02/24/2024 10:19:50 02/24/2024 12:29:46 Nausea and vomiting 63067915 R11.2 Monosomy X 082274039 Q96 .9 Maternal o besity complicating , childbirth and the puerperium, antepartum 8100906793 07 O99.212 Gestation period, 36 weeks 34119348 Z3A.36 [id number] Tyra Milelr [facility] [address],[place] [address] 03/03/2024 10:29:16 03/03/2024 10:58:26 Maternal obesity complicating , childbirth and the puerperium, antepartum 9118351182 07 O99.213 Z3A.37 [id number] Maude Peterson [place] [address] [address] 03/03/2024 10:29:50 03/03/2024 15:01:11 Maternal obesity complicating , childbirth and the puerperium, antepartum 3700228809 07 O99.212 Health Concerns Section Related Observation LastModified by Organization Detai ls LastModified Time None Recorded Concern Status LastModified by Organization Details LastModified Time None Recorded Payers Encounter Date Sequence Insurance Name Policy Number Policy Kraus Covered Member ID Kraus Member ID Guarantor Name 03/03/2024 1 [facility] (MEDICAID HMO) [id number] Loulou Chang [id number] Dudley Natarajan OBGyn Episode Ob Episode Information Episode Created Date Number of Fetuses Patient Bloodtype Patient rh Status Prepregnancy Weight lbs Domestic Partner Domestic Partner Phone Father Name Building Principal Status 09/08/19 24 1 O Positive 244.2 OPEN Fetus Data First Name Last Name Admitted to NICU Weight (g) Sex Living Outcome Pediatric Complications Fetus ID Race Codes Race Delivery Type [id number] Problems Problem Notes MFM: 09/13 with genetic couns elor & RN INTERNATIONAL ultrasound, declined CVS10/11 @945 US & 11/08 945 US [facility] Problem Name Start Date End Date Resolution Snomed Code Not e Body mass index 40+ - severely obese 890036392 weekly testin g @34wks Monosomy X 870689974 HR on NIP T, declined CVS/amniocentesis Angus [...] Date Ultra Sound Latest Days Gestation 0 [email or web address] 09/08/2023 03/22/20 24 0 Pre-jerri Flowsheet Flowsheet [...] Weight in lbs Pre/Post Dialysis Refused Weight 237.978598495726 BP Diastolic BP Location Tested BP Systolic BP Type 66 100 Fetus Heart Rate Present A 165 Fetus Movement Comments [facility]. Nausea improved, no bleeding or cramping. complicated by high risk NIPT for monosomy X. Referral sent to [facility]. Discussed amniocentesis for diagnostic testing. Discussed risks of monosomy X. NT/NB wnl today. Other OB labs wnl. RTC 4 weeks, will follow up [facility] referral. Flowsheet Date 10/07/2023 Lewis Score Blood Edema Fundus Height Fundus Units Glucose Ketones Leukocytes Nitrite Labor Signs Protein Cervic Dilation Cervic Effacement Cervic Station Type Weight in lbs Pre/Post Dialysis Refused Weight 236.036817306275 BP Diastolic BP Location Tested BP Systolic BP Type 72 116 Fetus Heart Rate Present A 160 Fetus Movement A No Comments Doing well, no movemen t yet. No cramping, bleeding or nausea. Saw M for HR Monosomy X on NIPT, declined CVS/amnio. Has follow up visit with them on Thursday. Discussed anatomy US with [facility], otherwise normal care in 4 weeks. Flowsheet Date 11/10/2023 Lewis Score Blood Edema Fundus Height Fundus Units Glucose Ketones Leukocytes Nitrite Labor Signs Protein Cervic Dilation Cervic Effacement Cervic Station Type Weight in lbs Pre/Post Dialysis Refused Weight 237.241850869187 BP Diastolic BP Location Tested BP Systolic BP Type 61 108 Fetus Heart Rate Present A 145 Fetus Movement A Yes Comments Baby moving well. Had anatom y US with [facility] yesterday, incomplete but normal visualized anatomy. Repeat in 4 weeks with [facility]. No cramping or bleeding. RTC 4 weeks. Flowsheet Date 12/09/2023 Lewis Score Blood Edema Fundus Height Fundus Units Glucose Ketones Leukocytes Nitrite Labor Signs Protein Cervic Dilation Cervic Effacement Cervic Station neg none trace Type Weight in lbs Pre/Post Dialysis Refused 238.304483305743 BP Diastolic BP Location Tested BP Systolic [...] Type Weight in lbs Pre/Post Dialysis Refused 243.667636538541 BP Diastolic BP Location Tested BP Systolic BP Type 76 L arm 122 sitting Fetus Heart Rate Present Fetus Movement A Yes Comments Good movement. No cram ping or bleeding. Repeat growth with MFM, EFW 75%. Continue serial growth US per [facility]. GCT and labs today. Discussed tdap vaccine. Desires EIL on 03/15 as partner is going to basic training for the [employer]. Discussed SP budget consultant, patient will make appointmetns with her to meet and discuss EIL. RTC 2 weeks. Flowsheet Date 01/20/2024 Lewis Score Blood Edema Fundus Height Fundus Units Glucose Ketones Leukocytes Nitrite Labor Signs Protein Cervic Dilation Cervic Effacement Cervic Station neg none none trace Type Weight in lbs Pre/Post Dialysis Refused Weight 246.446206162837 BP Diastolic BP Location Tested BP Systolic [...] Weight in lbs Pre/Post Dialysis Refused Weight 246.016512518456 BP Diastolic BP Location Tested BP Systolic BP Type 66 L arm 118 sitting Fetus Heart Rate Present Fetus Movement A Yes Comments Patient c/o of some nausea a nd [place]. No bleeding. Good movement. Had MFM [...] Weight in lbs Pre/Post Dialysis Refused Weight 249.667631864423 BP Diastolic BP Location Tested BP Systolic [...] Weight in lbs Pre/Post Dialysis Refused Weight 247.260221889017 BP Diastolic BP Location Tested BP Systolic BP Type 77 122 Fetus Heart Rate Present Fetus Movement Comments Flowsheet Date 02/17/2024 Lewis Score Blood Edema Fundus Height Fundus Units Glucose Ketones Leukocytes Nitrite Labor Signs Protein Cervic Dilation Cervic Effacement Cervic Station none Type Weight in lbs Pre/Post Dialysis Refused Weight 247.342132767923 BP Diastolic BP Location Tested BP Systolic [...] Weight in lbs Pre/Post Dialysis Refused Weight 248.856793997791 BP Diastolic BP Location Tested BP Systolic [...] Type Weight in lbs Pre/Post Dialysis Refused 249.500178310023 BP Diastolic BP Location Tested BP Systolic [...] Weight in lbs Pre/Post Dialysis Refused Weight 248.948778313820 BP Diastolic BP Location Tested BP Systolic BP Type 74 L arm 118 sitting Fetus Heart Rate Present A 140 Fetus Movement A Yes Comments Good movement. No ctx, LOF, VB. Will move induction from 03/15 to 03/16 due to staffing issues at [place]. BPP 8/ at [facility] Thursday, NST reactive today. Labor precautions reviewed. Menstrual History Last Menstrual Date Menses Monthly On Bcp Conception Prior Menses Frequency Hcg Plus Date Menarche Onset Age 0306/03/2023 Genetic Screening And Infection History Question Response Note Mental Retardation/Autism false Patient's Age Will Be 35 Years Or Older At Estim ated Date of Delivery false Thalassemia (Maori, Maltese, Mediterranean, Or Background): MCV < 80 false Neural Tube Defect (Meningomyelocele, Spina Bifi da, Or Anencephaly) false Congenital Heart Defect false Down Syndrome false Ben-Sachs (eg, Mosque, Cajun, [place]) f alse Juve Disease false Sickle Cell Disease Or Trait () false Hemophilia Or Other Blood Disorders false Muscular Dystrophy false Cystic Fibrosis false [place] Chorea false Intellectual Disability/Autism false If Yes, [...]
--- OUTSIDE RECORDS SUMMARY | 2024-03-24 00:25 | XMS_ITS | Continuity of Care Document ---
Author Organization [facility] [place] Address [address] [place] [address] Assessment No assessment recorded. Plan of Treatment Reminders Order Date Submit Date Provider Last Modified By Organization Details Last Modified Time Details Appointments SURG POST OP 025 10:45AM HEIDI COLON MD Not available Not available Not available Lab None record ed. Referral None record ed. Procedures None record ed. Surgeries None record ed. Imaging non-st ress test 024 02/24/20 24 [email or web address] [address], [address], [place], [address], 02/28/2024 14:21:02 Medication Orders None record ed. Patient TargetsNo targets recorded. Patient InstructionsNo instructions recorded. Reason for Referral None Reported. Results Created Date Observation Date Name Description Value Unit Range Abnormal Flag Note LastModifiedBy Organization Detail LastModifiedTime 09/08/19 24 09/08/2023 US, obste tric, nucha l trans lucen cy No observ ation record ed. RENO [address], [place], [address], 09/10/2023 10:53:56 09/08/19 24 09/08/2023 US, obste tric, nucha l trans lucen cy No observ ation record ed. [email or web address] [facility] [address], [place], [address], 09/08/2023 13:17:08 09/14/19 24 09/14/2023 US, obste tric, follo w-up No observ ation record ed. [email or web address] [facility] [address], [place], [address], 09/16/2023 14:33:23 09/14/19 24 09/14/2023 US, obste tric, trans abdom inal No observ ation record ed. [email or web address] [facility] [address], [place], [address], 09/15/2023 15:09:15 10/12/19 24 10/12/2023 US, obste tric No observ ation record ed. [address] [facility] [address], [place], [address], 10/13/2023 16:44:42 11/09/19 24 11/09/2023 US, obste tric, follo w-up No observ ation record ed. [email or web address] [facility] [address], [place], [address], 11/10/2023 16:45:37 12/07/19 24 12/07/2023 imagi ng/di agnos tic resul t No observ ation record ed. [facility] [address], [place], [address], 12/11/2023 10:32:37 01/04/20 24 01/04/2024 imagi ng/di agnos tic resul t No observ ation record ed. [facility] [address], [place], [address], 01/07/2024 12:12:29 02/02/20 24 02/01/2024 US, obste tric, follo w-up No observ ation record ed. [email or web address] [facility] [address], [place], [address], 02/04/2024 10:30:16 02/10/20 24 02/10/2024 non-s tress test No observ ation record ed. [email or web address] [facility] [address], [place], [address], 02/10/2024 11:58:14 02/10/20 24 02/10/2024 US, obste tric, bioph ysica l profi le + non-s tress test No observ ation record ed. [email or web address] [facility] [address], [place], [address], 02/10/2024 12:45:48 02/10/20 24 02/10/2024 US, obste tric, bioph ysica l profi le + non-s tress test No observ ation record ed. [email or web address] [address], [place], [address], 02/10/2024 22:00:22 02/17/20 24 02/17/2024 US, obste tric, bioph ysica l profi le + non-s tress test No observ ation record ed. [email or web address] [facility] [address], [place], [address], 02/17/2024 13:14:35 02/17/20 24 02/17/2024 US, obste tric, bioph ysica l profi le + non-s tress test No observ ation record ed. [email or web address] [address], [place], [address], 02/19/2024 01:03:22 02/17/20 24 02/17/2024 non-s tress test No observ ation record ed. [email or web address] [facility] [address], [place], [address], 02/17/2024 18:46:39 02/17/20 non-s tress test No observ ation record ed. [email or web address] [facility] [address], [place], [address], 02/17/2024 18:48:46 02/24/20 24 02/24/2024 US, obste tric, bioph ysica l profi le + non-s tress test No observ ation record ed. [facility] [address], [place], [address], 02/24/2024 14:24:08 02/24/20 24 02/24/2024 US, obste tric, follo w-up No observ ation record ed. [facility] [address], [place], [address], 02/24/2024 14:24:20 02/24/20 24 02/24/2024 US, obste tric, bioph ysica l profi le + non-s tress test No observ ation record ed. [email or web address] [address] [facility], [place], [address], 02/25/2024 11:50:17 02/24/20 24 02/24/2024 non-s tress test No observ ation record ed. [email or web address] [facility] [address], [place], [address], 02/24/2024 12:00:12 03/01/20 24 02/29/2024 imagi ng/di agnos tic resul t No observ ation record ed. [facility] [address] [place] [address], [address], 03/01/2024 17:20:31 03/03/20 24 03/03/2024 US, obste tric, bioph ysica l profi le + non-s tress test No observ ation record ed. [email or web address] [facility] [address], [place], [address], 03/03/2024 12:20:34 03/03/20 24 03/03/2024 US, obste tric, bioph ysica l profi le + non-s tress test No observ ation record ed. [email or web address] [address], [place], [address], 03/03/2024 20:54:47 03/03/20 24 03/03/2024 non-s tress test No observ ation record ed. [email or web address] [facility] [address], [place], [address], 03/03/2024 14:58:50 03/08/20 24 03/07/2024 imagi ng/di agnos tic resul t No observ ation record ed. [facility] [address], [address], 03/09/2024 00:46:18 03/09/20 24 03/09/2024 non-s tress test No observ ation record ed. [facility] [address], [place], [address], 03/09/2024 11:26:46 03/14/20 24 03/14/2024 imagi ng/di agnos tic resul t No observ ation record ed. [facility] [address], [address], 03/14/2024 13:30:26 03/17/20 24 03/14/2024 US, obste tric, follo w-up No observ ation record ed. [email or web address] [facility] [address] [place] [address], [address], 03/20/2024 15:27:00 Result Notes None recorded. Problems Name Problem SNOMED Code Status Onset Date Resolution Date Notes Provider Name and Address Organization Details Recorded Time 94950213 Active 2023 Jennie Grossman [facility] 4 12:13:08 Monosomy X 055888300 Active HR on NIPT, declined [facility]/amnio centesis HEIDI COLON MD [address], [place], [address], [facility] 4 12:18:50 Monosomy X 086514263 Active HR on NIPT, declined CVS/amnio centesis HEIDI COLON MD [address], [place], [address], [facility] 4 12:18:50 Body mass index 40+ - severely obese 312355753 Active weekly testing @34wks Jillian Morin [facility] 4 15:45:52 Problem Notes None recorded. Procedures Surgical History None recorded. Imaging Results Imaging Date Name Status LastModified by Organiz ation Details LastModified Time 02/24/2024 non-stress test completed [facility] [address], [place], [address], 02/24/2024 12:00:12 Procedure Notes None recorded. Medical Equipment None [...] 4 162.56 cm 99.26 % 42.6 kg/m2 032917. 91 g 116 mm[Hg] 71 mm[Hg] Maude Peterson [facility] 11:58:46 Social History Question Answer Notes LastModified by Organizat ion Details LastModified Time Tobacco Smoking Status Never Smoker Susana Dove alyssa, [facility] 2023 15:08:14 What Is Your Level [...] Or The Highest Degree You Have Received? [id number] Information not available 2023 Are There Any [...] Anxious, Or Unable To Sleep At Night)? [id number] Information not available 2023 Do You Use Any Illicit Or Recreational Drugs? No Information not available 2023 Do You Use Sunscreen Routinely? No Information not available 2023 Have You Used IV Drugs? No Information not available 2023 Sex: Unknown Functional Status Question Answer Note LastModified by Organizat ion Details LastModified Time Do you have difficulty walking or climbing stairs? No [email or web address] Information not available 01/06/2024 Are you able to walk? YESWOREST Information not available 2023 Are you able to care for yourself? Yes [email or web address] Information not available 01/06/2024 Do you have difficulty dressing or bathing? No [email or web address] Information not available 01/06/2024 What is your [...] Diagnosis/Indication Diagnosis SNOMED-CT Code Diagnosis ICD10 Code 504781 HEIDI COLON MD [facility] [address],[place] [address] 02/03/2024 10:35:23 02/03/2024 11:50:26 Nausea and vomiting 35842809 R11.2 Gestation period, 33 weeks 29664197 Z3A.33 Monosomy X 088044620 Q96 .9 [id number] Carlene Macias CNM [facility] [address],[place] [address] 02/10/2024 11:07:14 02/10/2024 12:40:48 Gestation period, 34 weeks 59165922 Z3A.34 Monosomy X 543995166 Q96 .9 [id number] Corin Vasquez [facility] [address],[place] [address] 02/10/2024 11:06:55 02/10/2024 12:05:49 Maternal obesity complicating , childbirth and the puerperium, antepartum 6449884486 07 O99.215 [id number] [facility] [address],[place] [address] 02/10/2024 11:17:13 02/10/2024 12:10:38 Maternal obesity complicating , childbirth and the puerperium, antepartum 8307376109 07 O99.213 Z3A.34 085788 [facility] [address],[place] [address] 02/17/2024 10:40:25 02/17/2024 11:08:31 Maternal obesity complicating , childbirth and the puerperium, antepartum 2229935374 07 O99.213 Z3A.35 059508 Tammie Haddad [facility] [address],[place] [address] 02/17/2024 10:40:37 02/20/2024 03:50:45 Maternal obesity complicating , childbirth and the puerperium, antepartum 8264516625 07 O99.213 787210 Carlene Macias CNM [facility] [address],[place] [address] 02/17/2024 10:41:04 02/17/2024 12:08:39 Gestation period, 35 weeks 35012048 Z3A.35 Anemia 675774827 D64.9 564019 Anamaria Carydyan [facility] [address],[place] [address] 02/24/2024 10:19:19 02/24/2024 11:26:08 Abnormal hematologic finding on screening of mother 901710297 O28.0 O99.210 O36.60X0 Z3A.36 807867 Maudenelly Peterson [facility] [address],[place] [address] 02/24/2024 10:19:35 02/24/2024 12:16:41 Maternal obesity complicating , childbirth and the puerperium, antepartum 7443004656 07 O99.212 400654 HEIDI COLON MD [facility] [address],[place] [address] 02/24/2024 10:19:50 02/24/2024 12:29:46 Nausea and vomiting 22982548 R11.2 Monosomy X 376800218 Q96 .9 Maternal o besity complicating , childbirth and the puerperium, antepartum 8322040344 07 O99.212 Gestation period, 36 weeks 73447277 Z3A.36 Health Concerns Section Related Observation LastModified by Organization Detai ls LastModified Time None Recorded Concern Status LastModified by Organization Details LastModified Time None Recorded Payers Encounter Date Sequence Insurance Name Policy Number Policy Kraus Covered Member ID Kraus Member ID Guarantor Name 02/24/2024 1 [facility] (MEDICAID HMO) [id number] Loulou Chang [id number] Dudley Natarajan OBGyn Episode Ob Episode Information Episode Created Date Number of Fetuses Patient Bloodtype Patient rh Status Prepregnancy Weight lbs Domestic Partner Domestic Partner Phone Father Name Steel Unloader Status 09/08/19 24 1 O Positive 244.2 OPEN Fetus Data First Name Last Name Admitted to NICU Weight (g) Sex Living Outcome Pediatric Complications Fetus ID Race Codes Race Delivery Type [id number] Problems Problem Notes [facility]: 09/13 with genetic couns elor & [employer] MANAGER ultrasound, declined [facility]S10/11 @945 US & 11/08 945 US [facility] Problem Name Start Date End Date Resolution Snomed Code Not e Body mass index 40+ - severely obese 896118842 weekly testin g @34wks Monosomy X 802327882 HR on NIP T, declined CVS/amniocentesis Angus [...] Date Ultra Sound Latest Days Gestation 0 [email or web address] 09/08/2023 03/22/20 24 0 Pre-jerri Flowsheet Flowsheet [...] Weight in lbs Pre/Post Dialysis Refused Weight 237.032490461216 BP Diastolic BP Location Tested BP Systolic BP Type 66 100 Fetus Heart Rate Present A 165 Fetus Movement Comments [facility]. Nausea improved, no bleeding or cramping. complicated by high risk NIPT for monosomy X. Referral sent to [facility]. Discussed amniocentesis for diagnostic testing. Discussed risks of monosomy X. NT/NB wnl today. Other OB labs wnl. RTC 4 weeks, will follow up MFM referral. Flowsheet Date 10/07/2023 Lewis Score Blood Edema Fundus Height Fundus Units Glucose Ketones Leukocytes Nitrite Labor Signs Protein Cervic Dilation Cervic Effacement Cervic Station Type Weight in lbs Pre/Post Dialysis Refused Weight 236.700136614190 BP Diastolic BP Location Tested BP Systolic BP Type 72 116 Fetus Heart Rate Present A 160 Fetus Movement A No Comments Doing well, no movemen t yet. No cramping, bleeding or nausea. Saw MFM for HR Monosomy X on NIPT, declined CVS/amnio. Has follow up visit with them on Thursday. Discussed anatomy US with [facility], otherwise normal care in 4 weeks. Flowsheet Date 11/10/2023 Lewis Score Blood Edema Fundus Height Fundus Units Glucose Ketones Leukocytes Nitrite Labor Signs Protein Cervic Dilation Cervic Effacement Cervic Station Type Weight in lbs Pre/Post Dialysis Refused Weight 237.210509032406 BP Diastolic BP Location Tested BP Systolic BP Type 61 108 Fetus Heart Rate Present A 145 Fetus Movement A Yes Comments Baby moving well. Had anatom y US with [facility] yesterday, incomplete but normal visualized anatomy. Repeat in 4 weeks with M. No cramping or bleeding. RTC 4 weeks. Flowsheet Date 12/09/2023 Lewis Score Blood Edema Fundus Height Fundus Units Glucose Ketones Leukocytes Nitrite Labor Signs Protein Cervic Dilation Cervic Effacement Cervic Station neg none trace Type Weight in lbs Pre/Post Dialysis Refused 238.003262876787 BP Diastolic BP Location Tested BP Systolic BP Type 75 L arm 111 sitting Fetus Heart Rate Present A 150 Fetus Movement A Yes Comments Pateint c/o of lower back pa in and lower pelvic pain. Discussed tylenol, ice/hot packs, and belly band. Good movement. Had repeat anatomy with MFM, all normal; EFW 90%, growth US scheduled for 4 weeks with [facility]. Discussed GCT and labs for next visit. RTC 3-4 weeks. Flowsheet Date 01/06/2024 Lewis Score Blood Edema Fundus Height Fundus Units Glucose Ketones Leukocytes Nitrite Labor Signs Protein Cervic Dilation Cervic Effacement Cervic Station neg none none trace Type Weight in lbs Pre/Post Dialysis Refused 243.725514826396 BP Diastolic BP Location Tested BP Systolic BP Type 76 L arm 122 sitting Fetus Heart Rate Present Fetus Movement A Yes Comments Good movement. No cram ping or bleeding. Repeat growth with MFM, EFW 75%. Continue serial growth US per MFM. GCT and labs today. Discussed tdap vaccine. Desires EIL on 03/15 as partner is going to basic training for the [employer]. 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 RTC 2 weeks. Flowsheet Date 01/20/2024 Lewis Score Blood Edema Fundus Height Fundus Units Glucose Ketones Leukocytes Nitrite Labor Signs Protein Cervic Dilation Cervic Effacement Cervic Station neg none none trace Type Weight in lbs Pre/Post Dialysis Refused Weight 246.868096882020 BP Diastolic BP Location Tested BP Systolic [...] Weight in lbs Pre/Post Dialysis Refused Weight 246.378028679636 BP Diastolic BP Location Tested BP Systolic [...] Weight in lbs Pre/Post Dialysis Refused Weight 249.905173492030 BP Diastolic BP Location Tested BP Systolic [...] Weight in lbs Pre/Post Dialysis Refused Weight 247.588389193821 BP Diastolic BP Location Tested BP Systolic BP Type 77 122 Fetus Heart Rate Present Fetus Movement Comments Flowsheet Date 02/17/2024 Lewis Score Blood Edema Fundus Height Fundus Units Glucose Ketones Leukocytes Nitrite Labor Signs Protein Cervic Dilation Cervic Effacement Cervic Station none Type Weight in lbs Pre/Post Dialysis Refused Weight 247.168880378718 BP Diastolic BP Location Tested BP Systolic [...] Weight in lbs Pre/Post Dialysis Refused Weight 248.274477351727 BP Diastolic BP Location Tested BP Systolic [...] Type Weight in lbs Pre/Post Dialysis Refused 249.294661298161 BP Diastolic BP Location Tested BP Systolic [...] Weight in lbs Pre/Post Dialysis Refused Weight 248.638548272522 BP Diastolic BP Location Tested BP Systolic BP Type 74 L arm 118 sitting Fetus Heart Rate Present A 140 Fetus Movement A Yes Comments Good movement. No ctx, LOF, VB. Will move induction from 03/15 to 03/16 due to staffing issues at [facility]. BPP 10/28 at [facility] Thursday, NST reactive today. Labor precautions reviewed. Menstrual History Last Menstrual Date Menses Monthly On Bcp Conception Prior Menses Frequency Hcg Plus Date Menarche Onset Age 0306/03/2023 Genetic Screening And Infection History Question Response Note Mental Retardation/Autism false Patient's Age Will Be 35 Years Or Older At Estim ated Date of Delivery false Thalassemia (Greek, Icelandic, Mediterranean, Or Background): MCV < 80 false Neural Tube Defect (Meningomyelocele, Spina Bifi da, Or Anencephaly) false Congenital Heart Defect false Down Syndrome false Ben-Sachs (eg, Nondenominational, Cajun, Faroese-Holt) f alse Juve Disease false Sickle Cell Disease Or Trait () false Hemophilia Or Other Blood Disorders false Muscular Dystrophy false Cystic Fibrosis false Somerset's Chorea false Intellectual Disability/Autism false If Yes, [...]
--- OUTSIDE RECORDS SUMMARY | 2024-03-24 00:26 | XMS_ITS | Continuity of Care Document ---
Author Organization [facility] [place] Address [address] [place] [address] [place] [address] Assessment No assessment recorded. Plan of Treatment Reminders Order Date Submit Date Provider Last Modified By Organization Details Last Modified Time Details Appointments SURG POST OP 2024 10:45A Dayton COLON MD Not available Not available Not available Lab None recorded. Referral None recorded. Procedures None recorded. Surgeries None recorded. Imaging US, obstetric , biophysic al profile + non-stres s test 2023 024 [email or web address] [address], [address], [place], [address], 02/18/2024 00:19:45 Medication Orders None recorded. Patient TargetsNo targets recorded. Patient InstructionsNo instructions recorded. Reason for Referral None Reported. Results Created Date Observation Date Name Description Value Unit Range Abnormal Flag Note LastModifiedBy Organization Detail LastModifiedTime 09/08/1909/08/2023 US, obste tric, nucha l trans lucen cy No observ ation record ed. RENO [address], [place], [address], 09/10/2023 10:53:56 09/08/1909/08/2023 US, obste tric, nucha l trans lucen cy No observ ation record ed. [email or web address] [place] [address], [place], [address], 09/08/2023 13:17:08 09/14/19 24 09/14/2023 US, obste tric, follo w-up No observ ation record ed. [email or web address] [facility] [address], [place], [address], 09/16/2023 14:33:23 09/14/19 24 09/14/2023 US, obste tric, trans abdom inal No observ ation record ed. [email or web address] [facility] [address], [place], [address], 09/15/2023 15:09:15 10/12/19 24 10/12/2023 US, obste tric No observ ation record ed. [email or web address] [facility] [address], [place], [address], 10/13/2023 16:44:42 11/09/19 24 11/09/2023 US, obste tric, follo w-up No observ ation record ed. [facility] [address], [place], [address], 11/10/2023 16:45:37 12/07/19 24 12/07/2023 imagi ng/di agnos tic resul t No observ ation record ed. [facility] [address], [place], [address], 12/11/2023 10:32:37 01/04/20 24 01/04/2024 imagi ng/di agnos tic resul t No observ ation record ed. [facility] [address], [place], [address], 01/07/2024 12:12:29 02/02/20 24 02/01/2024 US, obste tric, follo w-up No observ ation record ed. [email or web address] [facility] [address], [place], [address], 02/04/2024 10:30:16 02/10/20 24 02/10/2024 non-s tress test No observ ation record ed. [email or web address] [place] [address], [place], [address], 02/10/2024 11:58:14 02/10/20 24 02/10/2024 US, obste tric, bioph ysica l profi le + non-s tress test No observ ation record ed. [email or web address] [place] [address], [place], [address], 02/10/2024 12:45:48 02/10/20 24 02/10/2024 US, obste tric, bioph ysica l profi le + non-s tress test No observ ation record ed. [email or web address] [address], [place], [address], 02/10/2024 22:00:22 02/17/20 24 02/17/2024 US, obste tric, bioph ysica l profi le + non-s tress test No observ ation record ed. [email or web address] [place] [address], [place], [address], 02/17/2024 13:14:35 02/17/20 24 02/17/2024 US, obste tric, bioph ysica l profi le + non-s tress test No observ ation record ed. [email or web address] [address], [place], [address], 02/19/2024 01:03:22 02/17/20 24 02/17/2024 non-s tress test No observ ation record ed. [email or web address] [place] [address], [place], [address], 02/17/2024 18:46:39 02/17/20 non-s tress test No observ ation record ed. [email or web address] [place] [address], [place], [address], 02/17/2024 18:48:46 02/24/20 24 02/24/2024 US, obste tric, bioph ysica l profi le + non-s tress test No observ ation record ed. [facility] [address], [place], [address], 02/24/2024 14:24:08 02/24/20 24 02/24/2024 US, obste tric, follo w-up No observ ation record ed. [facility] [address], [place], [address], 02/24/2024 14:24:20 02/24/20 24 02/24/2024 US, obste tric, bioph ysica l profi le + non-s tress test No observ ation record ed. [email or web address] [address] [facility], [place], [address], 02/25/2024 11:50:17 02/24/20 24 02/24/2024 non-s tress test No observ ation record ed. [place] [address], [place], [address], 02/24/2024 12:00:12 03/01/20 24 02/29/2024 imagi ng/di agnos tic resul t No observ ation record ed. [facility] [address] [place] [address], [address], 03/01/2024 17:20:31 03/03/20 24 03/03/2024 US, obste tric, bioph ysica l profi le + non-s tress test No observ ation record ed. [email or web address] [place] [address], [place], [address], 03/03/2024 12:20:34 03/03/20 24 03/03/2024 US, obste tric, bioph ysica l profi le + non-s tress test No observ ation record ed. [email or web address] [address], [place], [address], 03/03/2024 20:54:47 03/03/20 24 03/03/2024 non-s tress test No observ ation record ed. [email or web address] [place] [address], [place], [address], 03/03/2024 14:58:50 03/08/20 24 03/07/2024 imagi ng/di agnos tic resul t No observ ation record ed. [facility] [address], [address], 03/09/2024 00:46:18 03/09/20 24 03/09/2024 non-s tress test No observ ation record ed. [place] [address], [place], [address], 03/09/2024 11:26:46 03/14/20 24 03/14/2024 imagi ng/di agnos tic resul t No observ ation record ed. [facility] [address], [address], 03/14/2024 13:30:26 03/17/20 24 03/14/2024 US, obste tric, follo w-up No observ ation record ed. [email or web address] [facility] [address] [place] [address], [address], 03/20/2024 15:27:00 Result Notes None recorded. Problems Name Problem SNOMED Code Status Onset Date Resolution Date Notes Provider Name and Address Organization Details Recorded Time 87828315 Active 2023 Jennie Grossman [facility], [facility] 4 12:13:08 Monosomy X 282101693 Active HR on NIPT, declined [facility]amnio centesis HEIDI COLON MD [address], [place], [address], [facility] 4 12:18:50 Monosomy X 025633290 Active HR on NIPT, declined [facility]/amnio centesis HEIDI COLON MD [address], [place], [address], [facility] 4 12:18:50 Body mass index 40+ - severely obese 446981155 Active weekly testing @34wks Jillian Morin [facility] 4 15:45:52 Problem Notes None recorded. Procedures Surgical History None recorded. Imaging Results Imaging Date Name Status LastModified by Organiz ation Details LastModified Time 02/17/2024 US, obstetric, biophysical profile + non-stress test completed [email or web address] [place] [address], [place], [address], 02/17/2024 13:14:35 02/17/2024 US, obstetric, biophysical profile + non-stress test completed [email or web address] [address], [place], [address], 02/19/2024 01:03:22 Procedure Notes None recorded. Medical Equipment None [...] Details Last Updated DateTime 4 162.56 cm 99.22 % 42.4 kg/m2 226653. 32 g 162.56 cm 99.22 % 42.4 kg/m2 734936. 32 g 122 mm[Hg] 247 mm[Hg] 122 mm[Hg] 77 mm[Hg] Tammie Haddad [facility] 4 18:45:26 Social History Question Answer Notes LastModified by Organizat ion Details LastModified Time Tobacco Smoking Status Never Smoker Susana Dove alyssa, [facility] 2023 15:08:14 What Is Your [...] Or The Highest Degree You Have Received? [id number] Information not available 2023 Are There Any [...] Anxious, Or Unable To Sleep At Night)? [id number] Information not available 2023 Do You Use Any Illicit Or Recreational Drugs? No Information not available 2023 Do You Use Sunscreen Routinely? No Information not available 2023 Have You Used IV Drugs? No Information not available 2023 Sex: Unknown Functional Status Question Answer Note LastModified by Organizat ion Details LastModified Time Do you have difficulty walking or climbing stairs? No [email or web address] Information not available 01/06/2024 Are you able to walk? YESWOREST Information not available 2023 Are you able to care for yourself? Yes [email or web address] Information not available 01/06/2024 Do you have [...] N Drug/Latex Allergies/Reactions N Blood Transfusion N Lung Disease N Dermatologic Disorders N Defects or Inherited Disease N Breast Problem N Gestational Diabetes N Hematologic disorders N Anesthesia Complications N History of STI N Deep Vein Thrombosis N Polycystic ovary syndrome N Anxiety Disorder N Autoimmune disease N Arthritis N Polyps N Infertility N History of abnormal pap N Acid Reflux (GERD) N Cancer N [...] Diagnosis/Indication Diagnosis SNOMED-CT Code Diagnosis ICD10 Code 685135 HEIDI COLON MD [place] [address],[facility] [place] [address] 01/20/2024 11:06:31 01/20/2024 12:07:38 Anemia of 33744230 O99.019 Maternal o besity complicating , childbirth and the puerperium, antepartum 7779257395 07 O99.212 Gestation period, 31 weeks 25218459 Z3A.31 [id number] HEIDI COLON MD [place] [address] [address] 02/03/2024 10:35:23 02/03/2024 11:50:26 Nausea and vomiting 29030549 R11.2 Gestation period, 33 weeks 93413788 Z3A.33 Monosomy X 214043997 Q96 .9 [id number] [facility] [address] [address] 02/10/2024 11:07:14 02/10/2024 12:40:48 Gestation period, 34 weeks 15354622 Z3A.34 Monosomy X 143506729 Q96 .9 [id number] Corin Vasquez [place] [address],[place] [address] 02/10/2024 11:06:55 02/10/2024 12:05:49 Maternal obesity complicating , childbirth and the puerperium, antepartum 2020754477 07 O99.215 [id number] [facility] [address],[place] [address] 02/10/2024 11:17:13 02/10/2024 12:10:38 Maternal obesity complicating , childbirth and the puerperium, antepartum 4884944476 07 O99.213 Z3A.34 [id number] [facility] [address],[place] [address] 02/17/2024 10:40:25 02/17/2024 11:08:31 Maternal obesity complicating , childbirth and the puerperium, antepartum 6858755834 07 O99.213 Z3A.35 [id number] Tammie Haddad [place] [address],[place] [address] 02/17/2024 10:40:37 02/20/2024 03:50:45 Maternal obesity complicating , childbirth and the puerperium, antepartum 1235869982 07 O99.213 [id number] Carlene Macias CNM [place] [address],[place] [address] 02/17/2024 10:41:04 02/17/2024 12:08:39 Gestation period, 35 weeks 69488234 Z3A.35 Anemia 178563415 D64.9 Health Concerns Section Related Observation LastModified by Organization Detai ls LastModified Time None Recorded Concern Status LastModified by Organization Details LastModified Time None Recorded Payers Encounter Date Sequence Insurance Name Policy Number Policy Kraus Covered Member ID Kraus Member ID Guarantor Name 02/17/2024 1 [facility] (MEDICAID HMO) [id number] Loulou Chang [id number] Dudley Natarajan OBGyn Episode Ob Episode Information Episode Created Date Number of Fetuses Patient Bloodtype Patient rh Status Prepregnancy Weight lbs Domestic Partner Domestic Partner Phone Father Name Trouble Lineman Status 09/08/19 24 1 O Positive 244.2 OPEN Fetus Data First Name Last Name Admitted to NICU Weight (g) Sex Living Outcome Pediatric Complications Fetus ID Race Codes Race Delivery Type [id number] Problems Problem Notes [facility]: 09/13 with 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, 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 CVS10/11 @945 US & 11/08 945 US [facility] Problem Name Start Date End Date Resolution Snomed Code Not e Body mass index 40+ - severely obese 987383130 weekly testin g @34wks Monosomy X 428532661 HR on NIP T, declined CVS/amniocentesis Angus [...] Date Ultra Sound Latest Days Gestation 0 [email or web address] 09/08/2023 03/22/20 24 0 Pre-jerri Flowsheet Flowsheet [...] Weight in lbs Pre/Post Dialysis Refused Weight 237.062430131318 BP Diastolic BP Location Tested BP Systolic BP Type 66 100 Fetus Heart Rate Present A 165 Fetus Movement Comments Patient presents to [facility]. Nausea improved, no bleeding or cramping. complicated by high risk NIPT for monosomy X. Referral sent to [facility]. Discussed amniocentesis for diagnostic testing. Discussed risks of monosomy X. NT/NB wnl today. Other OB labs wnl. RTC 4 weeks, will follow up [facility] referral. Flowsheet Date 10/07/2023 Lewis Score Blood Edema Fundus Height Fundus Units Glucose Ketones Leukocytes Nitrite Labor Signs Protein Cervic Dilation Cervic Effacement Cervic Station Type Weight in lbs Pre/Post Dialysis Refused Weight 236.146923854747 BP Diastolic BP Location Tested BP Systolic [...] Weight in lbs Pre/Post Dialysis Refused Weight 237.110734888582 BP Diastolic BP Location Tested BP Systolic [...] Type Weight in lbs Pre/Post Dialysis Refused 238.281637275285 BP Diastolic BP Location Tested BP Systolic [...] Type Weight in lbs Pre/Post Dialysis Refused 243.997968891983 BP Diastolic BP Location Tested BP Systolic BP Type 76 L arm 122 sitting Fetus Heart Rate Present Fetus Movement A Yes Comments Good movement. No cram ping or bleeding. Repeat growth with MFM, EFW 75%. Continue serial growth US per MF. GCT and labs today. Discussed tdap vaccine. Desires EIL on 03/15 as partner is going to basic training for the [employer]. Discussed SP pricing consultant, patient will make appointmetns with her to meet and discuss EIL. RTC 2 weeks. Flowsheet Date 01/20/2024 Lewis Score Blood Edema Fundus Height Fundus Units Glucose Ketones Leukocytes Nitrite Labor Signs Protein Cervic Dilation Cervic Effacement Cervic Station neg none none trace Type Weight in lbs Pre/Post Dialysis Refused Weight 246.054048712009 BP Diastolic BP Location Tested BP Systolic [...] Weight in lbs Pre/Post Dialysis Refused Weight 246.041815049012 BP Diastolic BP Location Tested BP Systolic [...] Weight in lbs Pre/Post Dialysis Refused Weight 249.322092587288 BP Diastolic BP Location Tested BP Systolic [...] Weight in lbs Pre/Post Dialysis Refused Weight 247.043025738029 BP Diastolic BP Location Tested BP Systolic BP Type 77 122 Fetus Heart Rate Present Fetus Movement Comments Flowsheet Date 02/17/2024 Lewis Score Blood Edema Fundus Height Fundus Units Glucose Ketones Leukocytes Nitrite Labor Signs Protein Cervic Dilation Cervic Effacement Cervic Station none Type Weight in lbs Pre/Post Dialysis Refused Weight 247.805707820830 BP Diastolic BP Location Tested BP Systolic [...] Weight in lbs Pre/Post Dialysis Refused Weight 248.821903991339 BP Diastolic BP Location Tested BP Systolic [...] Type Weight in lbs Pre/Post Dialysis Refused 249.425504497629 BP Diastolic BP Location Tested BP Systolic [...] Weight in lbs Pre/Post Dialysis Refused Weight 248.767153344777 BP Diastolic BP Location Tested BP Systolic BP Type 74 L arm 118 sitting Fetus Heart Rate Present A 140 Fetus Movement A Yes Comments Good movement. No ctx, LOF, VB. Will move induction from 03/15 to 03/16 due to staffing issues at [place]. BPP 10/28 at [facility] Thursday, NST reactive today. Labor precautions reviewed. Menstrual History Last Menstrual Date Menses Monthly On Bcp Conception Prior Menses Frequency Hcg Plus Date Menarche Onset Age 0306/03/2023 Genetic Screening And Infection History Question Response Note Mental Retardation/Autism false Patient's Age Will Be 35 Years Or Older At Estim ated Date of Delivery false Thalassemia (Luxembourgish, Guinean, Mediterranean, Or Background): MCV < 80 false Neural Tube Defect (Meningomyelocele, Spina Bifi da, Or Anencephaly) false Congenital Heart Defect false Down Syndrome false Ben-Sachs (eg, Sabianism, Cajun, Surinamese-Dauphin) f alse Juve Disease false Sickle Cell [...]
--- OUTSIDE RECORDS SUMMARY | 2024-03-24 00:26 | XMS_ITS | Continuity of Care Document ---
Author Organization [facility] [place] Address [address] [place] [address] Assessment No assessment recorded. Plan of Treatment Reminders Order Date Submit Date Provider Last Modified By Organization Details Last Modified Time Details Appointments SURG POST OP 025 10:45AM HEIDI COLON MD Not available Not available Not available Lab None record ed. Referral None record ed. Procedures None record ed. Surgeries None record ed. Imaging non-st ress test 024 02/17/20 24 [email or web address] [facility], [address], [place], [address], 02/19/2024 06:26:14 Medication Orders None record ed. Patient TargetsNo targets recorded. Patient InstructionsNo instructions recorded. Reason for Referral None Reported. Results Created Date Observation Date Name Description Value Unit Range Abnormal Flag Note LastModifiedBy Organization Detail LastModifiedTime 09/08/19 24 09/08/2023 US, obste tric, nucha l trans lucen cy No observ ation record ed. RENO [address], [place], [address], 09/10/2023 10:53:56 09/08/19 24 09/08/2023 US, obste tric, nucha l trans lucen cy No observ ation record ed. [email or web address] [facility] [address], [place], [address], 09/08/2023 13:17:08 09/14/19 24 09/14/2023 US, obste tric, follo w-up No observ ation record ed. [email or web address] [facility] [address], [place], [address], 09/16/2023 14:33:23 09/14/19 24 09/14/2023 US, obste tric, trans abdom inal No observ ation record ed. [place] [address] [facility] [address], [place], [address], 09/15/2023 15:09:15 10/12/19 24 10/12/2023 US, obste tric No observ ation record ed. [address] [facility] [address], [place], [address], 10/13/2023 16:44:42 11/09/19 24 11/09/2023 US, obste tric, follo w-up No observ ation record ed. [email or web address] [facility] [address], [place], [address], 11/10/2023 16:45:37 12/07/19 24 12/07/2023 imagi ng/di agnos tic resul t No observ ation record ed. [facility] [address], [place], [address], 12/11/2023 10:32:37 01/04/20 24 01/04/2024 imagi ng/di agnos tic resul t No observ ation record ed. [facility] [address], [place], [address], 01/07/2024 12:12:29 02/02/20 24 02/01/2024 US, obste tric, follo w-up No observ ation record ed. [facility] [address], [place], [address], 02/04/2024 10:30:16 02/10/20 24 02/10/2024 non-s tress test No observ ation record ed. [email or web address] [facility] [address], [place], [address], 02/10/2024 11:58:14 02/10/20 24 02/10/2024 US, obste tric, bioph ysica l profi le + non-s tress test No observ ation record ed. [email or web address] [facility] [address], [place], [address], 02/10/2024 12:45:48 02/10/20 24 02/10/2024 US, obste tric, bioph ysica l profi le + non-s tress test No observ ation record ed. [email or web address] [address], [place], [address], 02/10/2024 22:00:22 02/17/20 24 02/17/2024 US, obste tric, bioph ysica l profi le + non-s tress test No observ ation record ed. [email or web address] [facility] [address], [place], [address], 02/17/2024 13:14:35 02/17/20 24 02/17/2024 US, obste tric, bioph ysica l profi le + non-s tress test No observ ation record ed. [email or web address] [address], [place], [address], 02/19/2024 01:03:22 02/17/20 24 02/17/2024 non-s tress test No observ ation record ed. [email or web address] [facility] [address], [place], [address], 02/17/2024 18:46:39 02/17/20 non-s tress test No observ ation record ed. [email or web address] [facility] [address], [place], [address], 02/17/2024 18:48:46 02/24/20 24 02/24/2024 US, obste tric, bioph ysica l profi le + non-s tress test No observ ation record ed. [facility] [address], [place], [address], 02/24/2024 14:24:08 02/24/20 24 02/24/2024 US, obste tric, follo w-up No observ ation record ed. [facility] [address], [place], [address], 02/24/2024 14:24:20 02/24/20 24 02/24/2024 US, obste tric, bioph ysica l profi le + non-s tress test No observ ation record ed. [email or web address] [address] [facility], [place], [address], 02/25/2024 11:50:17 02/24/20 24 02/24/2024 non-s tress test No observ ation record ed. [email or web address] [facility] [address], [place], [address], 02/24/2024 12:00:12 03/01/20 24 02/29/2024 imagi ng/di agnos tic resul t No observ ation record ed. [facility] [address] [place] [address], [address], 03/01/2024 17:20:31 03/03/20 24 03/03/2024 US, obste tric, bioph ysica l profi le + non-s tress test No observ ation record ed. [email or web address] [place] [address], [place], [address], 03/03/2024 12:20:34 03/03/20 24 03/03/2024 US, obste tric, bioph ysica l profi le + non-s tress test No observ ation record ed. [email or web address] [address], [place], [address], 03/03/2024 20:54:47 03/03/20 24 03/03/2024 non-s tress test No observ ation record ed. [email or web address] [place] [address], [place], [address], 03/03/2024 14:58:50 03/08/20 24 03/07/2024 imagi ng/di agnos tic resul t No observ ation record ed. [facility] [address], [address], 03/09/2024 00:46:18 03/09/20 24 03/09/2024 non-s tress test No observ ation record ed. [email or web address] [place] [address], [place], [address], 03/09/2024 11:26:46 03/14/20 24 03/14/2024 imagi ng/di agnos tic resul t No observ ation record ed. [facility] [address], [address], 03/14/2024 13:30:26 03/17/20 24 03/14/2024 US, obste tric, follo w-up No observ ation record ed. [email or web address] [facility] [address] [place] [address], [address], 03/20/2024 15:27:00 Result Notes None recorded. Problems Name Problem SNOMED Code Status Onset Date Resolution Date Notes Provider Name and Address Organization Details Recorded Time 74743969 Active 2023 Jennie Grossman [facility] 4 12:13:08 Monosomy X 676015328 Active HR on NIPT, declined CVS/amnio centesis HEIDI COLON MD [address], [place], [address], [facility] 4 12:18:50 Monosomy X 962608562 Active HR on NIPT, declined CVS/amnio centesis HEIDI COLON MD [address], [place], [address], [facility] 4 12:18:50 Body mass index 40+ - severely obese 311467915 Active weekly testing @34wks Jillian Morin [facility] 4 15:45:52 Problem Notes None recorded. Procedures Surgical History None recorded. Imaging Results Imaging Date Name Status LastModified by Organiz ation Details LastModified Time 02/17/2024 non-stress test completed [email or web address] [facility] [place] [address], [place], [address], 02/17/2024 18:46:39 Procedure Notes None recorded. Medical Equipment None [...] 4 162.56 cm 99.22 % 42.4 kg/m2 353014. 32 g 162.56 cm 99.22 % 42.4 kg/m2 852567. 32 g 122 mm[Hg] 247 mm[Hg] 122 mm[Hg] 77 mm[Hg] Tammie Haddad [facility] 4 18:45:26 Social History Question Answer Notes LastModified by Organizat ion Details LastModified Time Tobacco Smoking Status Never Smoker Susana Dove alyssa, [facility] 2023 15:08:14 What Is Your Level [...] Or The Highest Degree You Have Received? [id number] Information not available 2023 Are There Any [...] Anxious, Or Unable To Sleep At Night)? [id number] Information not available 2023 Do You Use Any Illicit Or Recreational Drugs? No Information not available 2023 Do You Use Sunscreen Routinely? No Information not available 2023 Have You Used IV Drugs? No Information not available 2023 Sex: Unknown Functional Status Question Answer Note LastModified by Organizat ion Details LastModified Time Do you have difficulty walking or climbing stairs? No [email or web address] Information not available 01/06/2024 Are you able to walk? YESWOREST Information not available 2023 Are you able to care for yourself? Yes [email or web address] Information not available 01/06/2024 Do you have difficulty dressing or bathing? No [email or web address] Information not available 01/06/2024 What is your [...] Diagnosis/Indication Diagnosis SNOMED-CT Code Diagnosis ICD10 Code [id number] HEIDI COLON MD [facility] [address],[place] [address] 01/20/2024 11:06:31 01/20/2024 12:07:38 Anemia of 77886417 O99.019 Maternal o besity complicating , childbirth and the puerperium, antepartum 0097880393 07 O99.212 Gestation period, 31 weeks 84484200 Z3A.31 [id number] HEIDI COLON MD [facility] [address],[place] [address] 02/03/2024 10:35:23 02/03/2024 11:50:26 Nausea and vomiting 26683115 R11.2 Gestation period, 33 weeks 20205590 Z3A.33 Monosomy X 881172433 Q96 .9 [id number] Carlene Macias CNM [facility] [place] [address],[facility] [place] [address] 02/10/2024 11:07:14 02/10/2024 12:40:48 Gestation period, 34 weeks 91785263 Z3A.34 Monosomy X 946083535 Q96 .9 [id number] Corin Christina [facility] [address],[place] [address] 02/10/2024 11:06:55 02/10/2024 12:05:49 Maternal obesity complicating , childbirth and the puerperium, antepartum 4951359661 07 O99.215 [id number] [facility] [address],[place] [address] 02/10/2024 11:17:13 02/10/2024 12:10:38 Maternal obesity complicating , childbirth and the puerperium, antepartum 8677386663 07 O99.213 Z3A.34 236173 [facility] [address],[place] [address] 02/17/2024 10:40:25 02/17/2024 11:08:31 Maternal obesity complicating , childbirth and the puerperium, antepartum 3952372589 07 O99.213 Z3A.35 [id number] Tammie Haddad [facility] [address],[place] [address] 02/17/2024 10:40:37 02/20/2024 03:50:45 Maternal obesity complicating , childbirth and the puerperium, antepartum 6277092095 07 O99.213 [id number] [facility] [address],[place] [address] 02/17/2024 10:41:04 02/17/2024 12:08:39 Gestation period, 35 weeks 82679697 Z3A.35 Anemia 410405174 D64.9 Health Concerns Section Related Observation LastModified by Organization Detai ls LastModified Time None Recorded Concern Status LastModified by Organization Details LastModified Time None Recorded Payers Encounter Date Sequence Insurance Name Policy Number Policy Kraus Covered Member ID Kraus Member ID Guarantor Name 02/17/2024 1 [facility] (MEDICAID HMO) [id number] Loulou Chang [id number] Dudley Solomon Episode Ob Episode Information Episode Created Date Number of Fetuses Patient Bloodtype Patient rh Status Prepregnancy Weight lbs Domestic Partner Domestic Partner Phone Father Name Spa Host Status 09/08/19 24 1 O Positive 244.2 OPEN Fetus Data First Name Last Name Admitted to NICU Weight (g) Sex Living Outcome Pediatric Complications Fetus ID Race Codes Race Delivery Type [id number] Problems Problem Notes MFM: 09/13 with genetic couns elor & [employer] ultrasound, declined CVS10/11 @945 US & 11/08 945 US [facility] Problem Name Start Date End Date Resolution Snomed Code Not e Body mass index 40+ - severely obese 301990212 weekly testin g @34wks Monosomy X 529278285 HR on NIP T, declined CVS/amniocentesis Angus [...] Date Ultra Sound Latest Days Gestation 0 [email or web address] 09/08/2023 03/22/20 24 0 Pre-jerri Flowsheet Flowsheet [...] Weight in lbs Pre/Post Dialysis Refused Weight 237.458289841509 BP Diastolic BP Location Tested BP Systolic BP Type 66 100 Fetus Heart Rate Present A 165 Fetus Movement Comments Patient presents to [facility] care. Nausea improved, no bleeding or cramping. complicated by high risk NIPT for monosomy X. Referral sent to [facility]. Discussed amniocentesis for diagnostic testing. Discussed risks of monosomy X. NT/NB wnl today. Other OB labs wnl. RTC 4 weeks, will follow up [facility] referral. Flowsheet Date 10/07/2023 Lewis Score Blood Edema Fundus Height Fundus Units Glucose Ketones Leukocytes Nitrite Labor Signs Protein Cervic Dilation Cervic Effacement Cervic Station Type Weight in lbs Pre/Post Dialysis Refused Weight 236.187805865273 BP Diastolic BP Location Tested BP Systolic BP Type 72 116 Fetus Heart Rate Present A 160 Fetus Movement A No Comments Doing well, no movemen t yet. No cramping, bleeding or nausea. Saw MFM for HR Monosomy X on NIPT, declined CVS/amnio. Has follow up visit with them on Thursday. Discussed anatomy US with [facility], otherwise normal care in 4 weeks. Flowsheet Date 11/10/2023 Lewis Score Blood Edema Fundus Height Fundus Units Glucose Ketones Leukocytes Nitrite Labor Signs Protein Cervic Dilation Cervic Effacement Cervic Station Type Weight in lbs Pre/Post Dialysis Refused Weight 237.656336085314 BP Diastolic BP Location Tested BP Systolic BP Type 61 108 Fetus Heart Rate Present A 145 Fetus Movement A Yes Comments Baby moving well. Had anatom y US with [facility] yesterday, incomplete but normal visualized anatomy. Repeat in 4 weeks with MFM. No cramping or bleeding. RTC 4 weeks. Flowsheet Date 12/09/2023 Elwis Score Blood Edema Fundus Height Fundus Units Glucose Ketones Leukocytes Nitrite Labor Signs Protein Cervic Dilation Cervic Effacement Cervic Station neg none trace Type Weight in lbs Pre/Post Dialysis Refused 238.670287970088 BP Diastolic BP Location Tested BP Systolic BP Type 75 L arm 111 sitting Fetus Heart Rate Present A 150 Fetus Movement A Yes Comments Pateint c/o of lower back pa in and lower pelvic pain. Discussed tylenol, ice/hot packs, and belly band. Good movement. Had repeat anatomy with [facility], all normal; EFW 90%, growth US scheduled for 4 weeks with [facility]. Discussed GCT and labs for next visit. RTC 3-4 weeks. Flowsheet Date 01/06/2024 Lewis Score Blood Edema Fundus Height Fundus Units Glucose Ketones Leukocytes Nitrite Labor Signs Protein Cervic Dilation Cervic Effacement Cervic Station neg none none trace Type Weight in lbs Pre/Post Dialysis Refused 243.450492660287 BP Diastolic BP Location Tested BP Systolic BP Type 76 L arm 122 sitting Fetus Heart Rate Present Fetus Movement A Yes Comments Good movement. No cram ping or bleeding. Repeat growth with MFM, EFW 75%. Continue serial growth US per [facility]. GCT and labs today. Discussed tdap vaccine. Desires EIL on 03/15 as partner is going to basic training for the [employer]. Discussed [facility] accounts payable professional, patient will make appointmetns with her to meet and discuss EIL. RTC 2 weeks. Flowsheet Date 01/20/2024 Lewis Score Blood Edema Fundus Height Fundus Units Glucose Ketones Leukocytes Nitrite Labor Signs Protein Cervic Dilation Cervic Effacement Cervic Station neg none none trace Type Weight in lbs Pre/Post Dialysis Refused Weight 246.503479479699 BP Diastolic BP Location Tested BP Systolic [...] Weight in lbs Pre/Post Dialysis Refused Weight 246.587841952501 BP Diastolic BP Location Tested BP Systolic BP Type 66 L arm 118 sitting Fetus Heart Rate Present Fetus Movement A Yes Comments Patient c/o of some nausea a nd [place] Re[place]. No bleeding. Good movement. Had MFM [...] Weight in lbs Pre/Post Dialysis Refused Weight 249.333871455765 BP Diastolic BP Location Tested BP Systolic [...] Weight in lbs Pre/Post Dialysis Refused Weight 247.315931418290 BP Diastolic BP Location Tested BP Systolic BP Type 77 122 Fetus Heart Rate Present Fetus Movement Comments Flowsheet Date 02/17/2024 Lewis Score Blood Edema Fundus Height Fundus Units Glucose Ketones Leukocytes Nitrite Labor Signs Protein Cervic Dilation Cervic Effacement Cervic Station none Type Weight in lbs Pre/Post Dialysis Refused Weight 247.696747089743 BP Diastolic BP Location Tested BP Systolic [...] Weight in lbs Pre/Post Dialysis Refused Weight 248.972455119934 BP Diastolic BP Location Tested BP Systolic [...] Type Weight in lbs Pre/Post Dialysis Refused 249.671409143583 BP Diastolic BP Location Tested BP Systolic [...] Weight in lbs Pre/Post Dialysis Refused Weight 248.331739875387 BP Diastolic BP Location Tested BP Systolic BP Type 74 L arm 118 sitting Fetus Heart Rate Present A 140 Fetus Movement A Yes Comments Good movement. No ctx, LOF, VB. Will move induction from 03/15 to 03/16 due to staffing issues at [place]. BPP 10/28 at [facility] Thursday, NST reactive today. Labor precautions reviewed. Menstrual History Last Menstrual Date Menses Monthly On Bcp Conception Prior Menses Frequency Hcg Plus Date Menarche Onset Age 0306/03/2023 Genetic Screening And Infection History Question Response Note Mental Retardation/Autism false Patient's Age Will Be 35 Years Or Older At Estim ated Date of Delivery false Thalassemia (Mohawk, Citizen Of [place], Mediterranean, Or Background): MCV < 80 false Neural Tube Defect (Meningomyelocele, Spina Bifi da, Or Anencephaly) false Congenital Heart Defect false Down Syndrome false Ben-Sachs (eg, Hoahaoism, Cajun, Chadian-Emirati) f alse Juve Disease false Sickle Cell Disease Or Trait () false Hemophilia Or Other Blood Disorders false Muscular Dystrophy false Cystic Fibrosis false Lorain's Chorea false Intellectual Disability/Autism false If Yes, [...]
--- OUTSIDE RECORDS SUMMARY | 2024-03-24 00:26 | XMS_ITS | Continuity of Care Document ---
Author Organization [facility] [place] Address [address] [place] [address] Assessment No assessment recorded. Plan of Treatment Reminders Order Date Submit Date Provider Last Modified By Organization Details Last Modified Time Details Appointments SURG POST OP 025 10:45AM HEIDI COLON MD Not available Not available Not available Lab None record ed. Referral None record ed. Procedures None record ed. Surgeries None record ed. Imaging non-st ress test 024 02/10/20 [email or web address] [place], [address], [place], [address], 02/13/2024 06:53:19 Medication Orders None record ed. Patient TargetsNo targets recorded. Patient InstructionsNo instructions recorded. Reason for Referral None Reported. Results Created Date Observation Date Name Description Value Unit Range Abnormal Flag Note LastModifiedBy Organization Detail LastModifiedTime 09/08/19 24 09/08/2023 US, obste tric, nucha l trans lucen cy No observ ation record ed. R[place] [address], [place], [address], 09/10/2023 10:53:56 09/08/19 24 09/08/2023 US, obste tric, nucha l trans lucen cy No observ ation record ed. [email or web address] [place] [address], [place], [address], 09/08/2023 13:17:08 09/14/19 24 09/14/2023 US, obste tric, follo w-up No observ ation record ed. [email or web address] [facility] [address], [place], [address], 09/16/2023 14:33:23 09/14/19 24 09/14/2023 US, obste tric, trans abdom inal No observ ation record ed. [place] [address] [facility] [address], [place], [address], 09/15/2023 15:09:15 10/12/19 24 10/12/2023 US, obste tric No observ ation record ed. [address] [facility] [address], [place], [address], 10/13/2023 16:44:42 11/09/19 24 11/09/2023 US, obste tric, follo w-up No observ ation record ed. [email or web address] [facility] [address], [place], [address], 11/10/2023 16:45:37 12/07/19 24 12/07/2023 imagi ng/di agnos tic resul t No observ ation record ed. [facility] [address], [place], [address], 12/11/2023 10:32:37 01/04/20 24 01/04/2024 imagi ng/di agnos tic resul t No observ ation record ed. [facility] [address], [place], [address], 01/07/2024 12:12:29 02/02/20 24 02/01/2024 US, obste tric, follo w-up No observ ation record ed. [facility] [address], [place], [address], 02/04/2024 10:30:16 02/10/20 24 02/10/2024 non-s tress test No observ ation record ed. [email or web address] [place] [address], [place], [address], 02/10/2024 11:58:14 02/10/20 24 02/10/2024 US, obste tric, bioph ysica l profi le + non-s tress test No observ ation record ed. [email or web address] [place] [address], [place], [address], 02/10/2024 12:45:48 02/10/20 24 02/10/2024 US, obste tric, bioph ysica l profi le + non-s tress test No observ ation record ed. [email or web address] [address], [place], [address], 02/10/2024 22:00:22 02/17/20 24 02/17/2024 US, obste tric, bioph ysica l profi le + non-s tress test No observ ation record ed. [email or web address] [place] [address], [place], [address], 02/17/2024 13:14:35 02/17/20 24 02/17/2024 US, obste tric, bioph ysica l profi le + non-s tress test No observ ation record ed. [email or web address] [address], [place], [address], 02/19/2024 01:03:22 02/17/20 24 02/17/2024 non-s tress test No observ ation record ed. [email or web address] [place] [address], [place], [address], 02/17/2024 18:46:39 02/17/20 non-s tress test No observ ation record ed. [email or web address] [place] [address], [place], [address], 02/17/2024 18:48:46 02/24/20 24 02/24/2024 US, obste tric, bioph ysica l profi le + non-s tress test No observ ation record ed. [facility] [address], [place], [address], 02/24/2024 14:24:08 02/24/20 24 02/24/2024 US, obste tric, follo w-up No observ ation record ed. [facility] [address], [place], [address], 02/24/2024 14:24:20 02/24/20 24 02/24/2024 US, obste tric, bioph ysica l profi le + non-s tress test No observ ation record ed. [email or web address] [address], [place], [address], 02/25/2024 11:50:17 02/24/20 24 02/24/2024 non-s tress test No observ ation record ed. [place] [address], [place], [address], 02/24/2024 12:00:12 03/01/20 24 02/29/2024 imagi ng/di agnos tic resul t No observ ation record ed. [facility] [address] [place] [address], [address], 03/01/2024 17:20:31 03/03/20 24 03/03/2024 US, obste tric, bioph ysica l profi le + non-s tress test No observ ation record ed. [email or web address] [place] [address], [place], [address], 03/03/2024 12:20:34 03/03/20 24 03/03/2024 US, obste tric, bioph ysica l profi le + non-s tress test No observ ation record ed. [email or web address] [address], [place], [address], 03/03/2024 20:54:47 03/03/20 24 03/03/2024 non-s tress test No observ ation record ed. [place] [address], [place], [address], 03/03/2024 14:58:50 03/08/20 24 03/07/2024 imagi ng/di agnos tic resul t No observ ation record ed. [facility] [address], [address], 03/09/2024 00:46:18 03/09/20 24 03/09/2024 non-s tress test No observ ation record ed. [email or web address] [place] [address], [place], [address], 03/09/2024 11:26:46 03/14/20 24 03/14/2024 imagi ng/di agnos tic resul t No observ ation record ed. [facility] [address], [address], 03/14/2024 13:30:26 03/17/20 24 03/14/2024 US, obste tric, follo w-up No observ ation record ed. [email or web address] [facility] [address] [place] [address], [address], 03/20/2024 15:27:00 Result Notes None recorded. Problems Name Problem SNOMED Code Status Onset Date Resolution Date Notes Provider Name and Address Organization Details Recorded Time 69149729 Active 2023 Jennie Grossman [facility] 4 12:13:08 Monosomy X 859695129 Active HR on NIPT, declined CVS/amnio centesis HEIDI COLON MD [address], [place], [address], [facility] 4 12:18:50 Monosomy X 084922908 Active HR on NIPT, declined CVS/amnio centesis HEIDI COLON MD [address], [place], [address], [facility] 4 12:18:50 Body mass index 40+ - severely obese 450118762 Active weekly testing @34wks Jillian Morin [facility] 4 15:45:52 Problem Notes None recorded. Procedures Surgical History None recorded. Imaging Results Imaging Date Name Status LastModified by Organiz ation Details LastModified Time 02/10/2024 [facility] [place] [address] [address], [place], [address], 02/10/2024 11:58:14 Procedure Notes None recorded. Medical Equipment None [...] Details Last Updated DateTime 4 162.56 cm 99.28 % 42.7 kg/m2 461734. 5 g 121 mm[Hg] 76 mm[Hg] Tammie Haddad [facility] 12:19:44 Social History Question Answer Notes LastModified by Organizat ion Details LastModified Time Tobacco Smoking Status Never Smoker Susana Dove null, [facility] 2023 15:08:14 What Is Your [...] Or The Highest Degree You Have Received? [id number] Information not available 2023 Are There Any [...] Anxious, Or Unable To Sleep At Night)? [id number] Information not available 2023 Do You Use Any Illicit Or Recreational Drugs? No Information not available 2023 Do You Use Sunscreen Routinely? No Information not available 2023 Have You Used IV Drugs? No Information not available 2023 Sex: Unknown Functional Status Question Answer Note LastModified by Organizat ion Details LastModified Time Do you have difficulty walking or climbing stairs? No [email or web address] Information not available 01/06/2024 Are you able to walk? YESWOREST Information not available 2023 Are you able to care for yourself? Yes [email or web address] Information not available 01/06/2024 Do you have [...] Diagnosis/Indication Diagnosis SNOMED-CT Code Diagnosis ICD10 Code [id number] HEIDI COLON MD [place] [address],[place] [address] 01/20/2024 11:06:31 01/20/2024 12:07:38 Anemia of 16956340 O99.019 Maternal o besity complicating , childbirth and the puerperium, antepartum 3184525626 07 O99.212 Gestation period, 31 weeks 94456054 Z3A.31 [id number] HEIDI COLON MD [place] [address],[place] [address] 02/03/2024 10:35:23 02/03/2024 11:50:26 Nausea and vomiting 91587346 R11.2 Gestation period, 33 weeks 34195051 Z3A.33 Monosomy X 190887097 Q96 .9 [id number] [facility] [address],[place] [address] 02/10/2024 11:07:14 02/10/2024 12:40:48 Gestation period, 34 weeks 83247111 Z3A.34 Monosomy X 606911468 Q96 .9 [id number] Corin Vasquez [place] [address],[place] [address] 02/10/2024 11:06:55 02/10/2024 12:05:49 Maternal obesity complicating , childbirth and the puerperium, antepartum 3074315851 07 O99.215 [id number] Tyra [facility] [address],[place] [address] 02/10/2024 11:17:13 02/10/2024 12:10:38 Maternal obesity complicating , childbirth and the puerperium, antepartum 0047890792 07 O99.213 Z3A.34 Health Concerns Section Related Observation LastModified by Organization Detai ls LastModified Time None Recorded Concern Status LastModified by Organization Details LastModified Time None Recorded Payers Encounter Date Sequence Insurance Name Policy Number Policy Kraus Covered Member ID Kraus Member ID Guarantor Name 02/10/2024 1 [facility] (MEDICAID HMO) [id number] Louloura Chang [id number] Dudley Natarajan OBGyn Episode Ob Episode Information Episode Created Date Number of Fetuses Patient Bloodtype Patient rh Status Prepregnancy Weight lbs Domestic Partner Domestic Partner Phone Father Name Urban Designer Status 09/08/19 24 1 O Positive 244.2 OPEN Fetus Data First Name Last Name Admitted to NICU Weight (g) Sex Living Outcome Pediatric Complications Fetus ID Race Codes Race Delivery Type [id number] Problems Problem Notes MFM: 09/13 with genetic couns elor & RN OR LVN ultrasound, declined CVS10/11 @945 US & 11/08 945 US [facility] Problem Name Start Date End Date Resolution Snomed Code Not e Body mass index 40+ - severely obese 420139568 weekly testin g @34wks Monosomy X 360115093 HR on NIP T, declined CVS/amniocentesis Angus [...] Date Ultra Sound Latest Days Gestation 0 09/08/2023 03/22/20 24 0 Pre-jerri Flowsheet Flowsheet [...] Weight in lbs Pre/Post Dialysis Refused Weight 237.762457188949 BP Diastolic BP Location Tested BP Systolic BP Type 66 100 Fetus Heart Rate Present A 165 Fetus Movement Comments Patient presents to [facility]. Nausea improved, no bleeding or cramping. complicated by high risk NIPT for monosomy X. Referral sent to [facility]. Discussed amniocentesis for diagnostic testing. Discussed risks of monosomy X. NT/NB wnl today. Other OB labs wnl. RTC 4 weeks, will follow up MFM referral. Flowsheet Date 10/07/2023 Lewis Score Blood Edema Fundus Height Fundus Units Glucose Ketones Leukocytes Nitrite Labor Signs Protein Cervic Dilation Cervic Effacement Cervic Station Type Weight in lbs Pre/Post Dialysis Refused Weight 236.025032907567 BP Diastolic BP Location Tested BP Systolic BP Type 72 116 Fetus Heart Rate Present A 160 Fetus Movement A No Comments Doing well, no movemen t yet. No cramping, bleeding or nausea. Saw [facility] for HR Monosomy X on NIPT, declined CVS/amnio. Has follow up visit with them on Thursday. Discussed anatomy US with [facility], otherwise normal care in 4 weeks. Flowsheet Date 11/10/2023 Lewis Score Blood Edema Fundus Height Fundus Units Glucose Ketones Leukocytes Nitrite Labor Signs Protein Cervic Dilation Cervic Effacement Cervic Station Type Weight in lbs Pre/Post Dialysis Refused Weight 237.688945138157 BP Diastolic BP Location Tested BP Systolic BP Type 61 108 Fetus Heart Rate Present A 145 Fetus Movement A Yes Comments Baby moving well. Had anatom y US with [facility] yesterday, incomplete but normal visualized anatomy. Repeat in 4 weeks with [facility]. No cramping or bleeding. RTC 4 weeks. Flowsheet Date 12/09/2023 Lewis Score Blood Edema Fundus Height Fundus Units Glucose Ketones Leukocytes Nitrite Labor Signs Protein Cervic Dilation Cervic Effacement Cervic Station neg none trace Type Weight in lbs Pre/Post Dialysis Refused 238.438377686190 BP Diastolic BP Location Tested BP Systolic [...] Type Weight in lbs Pre/Post Dialysis Refused 243.417211241013 BP Diastolic BP Location Tested BP Systolic BP Type 76 L arm 122 sitting Fetus Heart Rate Present Fetus Movement A Yes Comments Good movement. No cram ping or bleeding. Repeat growth with MFM, EFW 75%. Continue serial growth US per [facility]. GCT and labs today. Discussed tdap vaccine. Desires EIL on 03/15 as partner is going to basic training for the [employer]. Discussed SP regional sales engineer, patient will make appointmetns with her to meet and discuss EIL. RTC 2 weeks. Flowsheet Date 01/20/2024 Lewis Score Blood Edema Fundus Height Fundus Units Glucose Ketones Leukocytes Nitrite Labor Signs Protein Cervic Dilation Cervic Effacement Cervic Station neg none none trace Type Weight in lbs Pre/Post Dialysis Refused Weight 246.677725263623 BP Diastolic BP Location Tested BP Systolic [...] Weight in lbs Pre/Post Dialysis Refused Weight 246.547355055054 BP Diastolic BP Location Tested BP Systolic BP Type 66 L arm 118 sitting Fetus Heart Rate Present Fetus Movement A Yes Comments Patient c/o of some nausea a nd [place]. No bleeding. Good movement. Had MFM [...] Weight in lbs Pre/Post Dialysis Refused Weight 249.131902164393 BP Diastolic BP Location Tested BP Systolic [...] Weight in lbs Pre/Post Dialysis Refused Weight 247.027052468455 BP Diastolic BP Location Tested BP Systolic BP Type 77 122 Fetus Heart Rate Present Fetus Movement Comments Flowsheet Date 02/17/2024 Lewis Score Blood Edema Fundus Height Fundus Units Glucose Ketones Leukocytes Nitrite Labor Signs Protein Cervic Dilation Cervic Effacement Cervic Station none Type Weight in lbs Pre/Post Dialysis Refused Weight 247.406204362827 BP Diastolic BP Location Tested BP Systolic [...] Weight in lbs Pre/Post Dialysis Refused Weight 248.402178303443 BP Diastolic BP Location Tested BP Systolic [...] Type Weight in lbs Pre/Post Dialysis Refused 249.073852775117 BP Diastolic BP Location Tested BP Systolic [...] Weight in lbs Pre/Post Dialysis Refused Weight 248.549550753071 BP Diastolic BP Location Tested BP Systolic BP Type 74 L arm 118 sitting Fetus Heart Rate Present A 140 Fetus Movement A Yes Comments Good movement. No ctx, LOF, VB. Will move induction from 03/15 to 03/16 due to staffing issues at [facility]. BPP 8/8 at [facility] Thursday, NST reactive today. Labor precautions reviewed. Menstrual History Last Menstrual Date Menses Monthly On Bcp Conception Prior Menses Frequency Hcg Plus Date Menarche Onset Age 0306/03/2023 Genetic Screening And Infection History Question Response Note Mental Retardation/Autism false Patient's Age Will Be 35 Years Or Older At Estim ated Date of Delivery false Thalassemia (Macanese, French, Mediterranean, Or Background): MCV < 80 false Neural Tube Defect (Meningomyelocele, Spina Bifi da, Or Anencephaly) false Congenital Heart Defect false Down Syndrome false Ben-Sachs (eg, Presybeterian, Cajun, Tajik-[place]) f alse Juve Disease false Sickle Cell Disease Or Trait () false Hemophilia Or Other Blood Disorders false Muscular Dystrophy false Cystic Fibrosis false Pryor's Chorea false Intellectual Disability/Autism false If Yes, [...]
--- OUTSIDE RECORDS SUMMARY | 2024-03-24 00:26 | XMS_ITS | Continuity of Care Document ---
Author Organization [facility] Address [address] [place] [address] Assessment Encounter Date Assessment Date Assessment LastModified by Organization Details LastModified Time 02/10/2024 02/10/2024 Patient is _34__weeks . Discussed plan. Not available 02/10/2024 12:30:34 Plan of Treatment Reminders Order Date Submit [...] observ ation record ed. RENOEARNEST [address], [place], [address], 09/10/2023 10:53:56 09/08/19 24 09/08/2023 US, obste tric, nucha l trans lucen cy No observ ation record ed. [email or web address] [facility] [address], [place], [address], 09/08/2023 13:17:08 09/14/19 24 09/14/2023 US, obste tric, follo w-up No observ ation record ed. [email or web address] [facility]ly [facility] [address], [place], [address], 09/16/2023 14:33:23 09/14/19 24 09/14/2023 US, obste tric, trans abdom inal No observ ation record ed. [facility] [address], [place], [address], 09/15/2023 15:09:15 10/12/19 24 10/12/2023 US, obste tric No observ ation record ed. [email or web address] [facility] [address], [place], [address], 10/13/2023 16:44:42 11/09/19 24 11/09/2023 US, obste tric, follo w-up No observ ation record ed. [facility] [address], [place], [address], 11/10/2023 16:45:37 12/07/19 24 12/07/2023 imagi ng/di agnos tic resul t No observ ation record ed. [facility] [address], [place], [address], 12/11/2023 10:32:37 01/04/20 24 01/04/2024 imagi ng/di agnos tic resul t No observ ation record ed. [facility] [address], [place], [address], 01/07/2024 12:12:29 02/02/20 24 02/01/2024 US, obste tric, follo w-up No observ ation record ed. [email or web address] [facility] [address], [place], [address], 02/04/2024 10:30:16 02/10/20 24 02/10/2024 non-s tress test No observ ation record ed. [email or web address] [facility] [address], [place], [address], 02/10/2024 11:58:14 02/10/20 24 02/10/2024 US, obste tric, bioph ysica l profi le + non-s tress test No observ ation record ed. [email or web address] [facility] [address], [place], [address], 02/10/2024 12:45:48 02/10/20 24 02/10/2024 US, obste tric, bioph ysica l profi le + non-s tress test No observ ation record ed. [email or web address] [facility] [address], [place], [address], 02/10/2024 22:00:22 02/17/20 24 02/17/2024 US, obste tric, bioph ysica l profi le + non-s tress test No observ ation record ed. [email or web address] [facility] [address], [place], [address], 02/17/2024 13:14:35 02/17/20 24 02/17/2024 US, obste tric, bioph ysica l profi le + non-s tress test No observ ation record ed. [email or web address] [facility] [address], [place], [address], 02/19/2024 01:03:22 02/17/20 24 02/17/2024 non-s tress test No observ ation record ed. [email or web address] [facility] [address], [place], [address], 02/17/2024 18:46:39 02/17/20 non-s tress test No observ ation record ed. [email or web address] [facility] [address], [place], [address], 02/17/2024 18:48:46 02/24/20 24 02/24/2024 US, obste tric, bioph ysica l profi le + non-s tress test No observ ation record ed. [facility] [address], [place], [address], 02/24/2024 14:24:08 02/24/20 24 02/24/2024 US, obste tric, follo w-up No observ ation record ed. [facility] [address], [place], [address], 02/24/2024 14:24:20 02/24/20 24 02/24/2024 US, obste tric, bioph ysica l profi le + non-s tress test No observ ation record ed. [email or web address] [facility] [address], [place], [address], 02/25/2024 11:50:17 02/24/20 24 02/24/2024 non-s tress test No observ ation record ed. [email or web address] [facility] [address], [place], [address], 02/24/2024 12:00:12 03/01/20 24 02/29/2024 imagi ng/di agnos tic resul t No observ ation record ed. [facility] [address] [place] [address], [address], 03/01/2024 17:20:31 03/03/20 24 03/03/2024 US, obste tric, bioph ysica l profi le + non-s tress test No observ ation record ed. [email or web address] [facility] [address], [place], [address], 03/03/2024 12:20:34 03/03/20 24 03/03/2024 US, obste tric, bioph ysica l profi le + non-s tress test No observ ation record ed. [email or web address] [facility] [address], [place], [address], 03/03/2024 20:54:47 03/03/20 24 03/03/2024 non-s tress test No observ ation record ed. [email or web address] [facility] [address], [place], [address], 03/03/2024 14:58:50 03/08/20 24 03/07/2024 imagi ng/di agnos tic resul t No observ ation record ed. [facility] [address], [address], 03/09/2024 00:46:18 03/09/20 24 03/09/2024 non-s tress test No observ ation record ed. [email or web address] [facility] [address], [place], [address], 03/09/2024 11:26:46 03/14/20 24 03/14/2024 imagi ng/di agnos tic resul t No observ ation record ed. [facility] [address], [address], 03/14/2024 13:30:26 03/17/20 24 03/14/2024 US, obste tric, follo w-up No observ ation record ed. [email or web address] [facility] [address], [address], 03/20/2024 15:27:00 Result Notes None recorded. Problems Name Problem SNOMED Code Status Onset Date Resolution Date Notes Provider Name and Address Organization Details Recorded Time 40312504 Active 2023 Jennierobin Hugginssharri shah, [facility] 4 12:13:08 Monosomy X 186159848 Active HR on NIPT, declined [facility]/amnio centesis HEIDI COLON MD [address], [place], [address], [facility] 4 12:18:50 Monosomy X 818667041 Active HR on NIPT, declined [facility]S/amnio centesis HEIDI COLON MD [address], [place], [address], [facility] 4 12:18:50 Body mass index 40+ - severely obese 620861405 Active weekly testing @34wks Jillian shah, [facility] 4 15:45:52 Problem Notes None [...] 4 162.56 cm 99.28 % 42.7 kg/m2 554847. 5 g 121 mm[Hg] 76 mm[Hg] Tammie Haddad [facility] 12:19:44 Social History Question Answer Notes LastModified by Organizat ion Details LastModified Time Tobacco Smoking Status Never Smoker Susana shah, [facility] 2023 15:08:14 What Is Your [...] Or The Highest Degree You Have Received? BC01312-5 Information not available 2023 Are There Any [...] Anxious, Or Unable To Sleep At Night)? [id number] Information not available 2023 Do You Use Any Illicit Or Recreational Drugs? No Information not available 2023 Do You Use Sunscreen Routinely? No Information not available 2023 Have You Used IV Drugs? No Information not available 2023 Sex: Unknown Functional Status Question Answer Note LastModified by Organizat ion Details LastModified Time Do you have difficulty walking or climbing stairs? No [email or web address] Information not available 01/06/2024 Are you able to walk? YESWOREST [email or web address] Information not available 2023 Are you able to care for yourself? Yes Information not available 01/06/2024 Do you have difficulty dressing or bathing? No [email or web address] Information not available 01/06/2024 What is your [...] Diagnosis/Indication Diagnosis SNOMED-CT Code Diagnosis ICD10 Code [id number] HEIDI COLON MD [facility] [address],[place] [address] 01/20/2024 11:06:31 01/20/2024 12:07:38 Anemia of 09998604 O99.019 Maternal o besity complicating , childbirth and the puerperium, antepartum 3961735244 07 O99.212 Gestation period, 31 weeks 83274286 Z3A.31 [id number] HEIDI COLON MD [facility] [address],[place] [address] 02/03/2024 10:35:23 02/03/2024 11:50:26 Nausea and vomiting 39440440 R11.2 Gestation period, 33 weeks 27046414 Z3A.33 Monosomy X 480132013 Q96 .9 [id number] [facility] [address],[place] [address] 02/10/2024 11:07:14 02/10/2024 12:40:48 Gestation period, 34 weeks 53934420 Z3A.34 Monosomy X 945738714 Q96 .9 [id number] Corin Vasquez [facility] [address],[place] [address] 02/10/2024 11:06:55 02/10/2024 12:05:49 Maternal obesity complicating , childbirth and the puerperium, antepartum 0492026978 07 O99.215 [id number] Tyra Miller [facility] [address],[place] [address] 02/10/2024 11:17:13 02/10/2024 12:10:38 Maternal obesity complicating , childbirth and the puerperium, antepartum 1609569166 07 O99.213 Z3A.34 Health Concerns Section Related Observation LastModified by Organization Detai ls LastModified Time None Recorded Concern Status LastModified by Organization Details LastModified Time None Recorded Payers Encounter Date Sequence Insurance Name Policy Number Policy Kraus Covered Member ID Kraus Member ID Guarantor Name 02/10/2024 1 [facility] (MEDICAID HMO) [id number] Loulou Chang [id number] Dudley Natarajan OBGyn Episode Ob Episode Information Episode Created Date Number of Fetuses Patient Bloodtype Patient rh Status Prepregnancy Weight lbs Domestic Partner Domestic Partner Phone Father Name Creative Specialist Status 09/08/19 24 1 O Positive 244.2 OPEN Fetus Data First Name Last Name Admitted to NICU Weight (g) Sex Living Outcome Pediatric Complications Fetus ID Race Codes Race Delivery Type [id number] Problems Problem Notes [facility]: 09/13 with genetic couns elor & [employer] ultrasound, declined [facility]S10/11 @945 US & 11/08 945 US [facility] Problem Name Start Date End Date Resolution Snomed Code Not e Body mass index 40+ - severely obese 634955028 weekly testin g @34wks Monosomy X 844453803 HR on NIP T, declined CVS/amniocentesis Angus [...] Days Gestation 0 09/08/2023 03/22/20 24 0 Pre- Flowsheet Flowsheet [...] Weight in lbs Pre/Post Dialysis Refused Weight 237.192813344336 BP Diastolic BP Location Tested BP Systolic BP Type 66 100 Fetus Heart Rate Present A 165 Fetus Movement Comments Patient presents to [facility] care. Nausea improved, no bleeding or cramping. complicated by high risk NIPT for monosomy X. Referral sent to [facility]. Discussed amniocentesis for diagnostic testing. Discussed risks of monosomy X. NT/NB wnl today. Other OB labs wnl. RTC 4 weeks, will follow up MFM referral. Flowsheet Date 10/07/2023 Lewis Score Blood Edema Fundus Height Fundus Units Glucose Ketones Leukocytes Nitrite Labor Signs Protein Cervic Dilation Cervic Effacement Cervic Station Type Weight in lbs Pre/Post Dialysis Refused Weight 236.447068511470 BP Diastolic BP Location Tested BP Systolic BP Type 72 116 Fetus Heart Rate Present A 160 Fetus Movement A No Comments Doing well, no movemen t yet. No cramping, bleeding or nausea. Saw MFM for HR Monosomy X on NIPT, declined CVS/amnio. Has follow up visit with them on Thursday. Discussed anatomy US with [facility], otherwise normal care in 4 weeks. Flowsheet Date 11/10/2023 Lewis Score Blood Edema Fundus Height Fundus Units Glucose Ketones Leukocytes Nitrite Labor Signs Protein Cervic Dilation Cervic Effacement Cervic Station Type Weight in lbs Pre/Post Dialysis Refused Weight 237.066178728762 BP Diastolic BP Location Tested BP Systolic BP Type 61 108 Fetus Heart Rate Present A 145 Fetus Movement A Yes Comments Baby moving well. Had anatom y US with [facility] yesterday, incomplete but normal visualized anatomy. Repeat in 4 weeks with M. No cramping or bleeding. RTC 4 weeks. Flowsheet Date 12/09/2023 Lewis Score Blood Edema Fundus Height Fundus Units Glucose Ketones Leukocytes Nitrite Labor Signs Protein Cervic Dilation Cervic Effacement Cervic Station neg none trace Type Weight in lbs Pre/Post Dialysis Refused 238.516946824375 BP Diastolic BP Location Tested BP Systolic BP Type 75 L arm 111 sitting Fetus Heart Rate Present A 150 Fetus Movement A Yes Comments Pateint c/o of lower back pa in and lower pelvic pain. Discussed tylenol, ice/hot packs, and belly band. Good movement. Had repeat anatomy with MFM, all normal; EFW 90%, growth US scheduled for 4 weeks with [facility]. Discussed GCT and labs for next visit. RTC 3-4 weeks. Flowsheet Date 01/06/2024 Lewis Score Blood Edema Fundus Height Fundus Units Glucose Ketones Leukocytes Nitrite Labor Signs Protein Cervic Dilation Cervic Effacement Cervic Station neg none none trace Type Weight in lbs Pre/Post Dialysis Refused 243.752260306272 BP Diastolic BP Location Tested BP Systolic BP Type 76 L arm 122 sitting Fetus Heart Rate Present Fetus Movement A Yes Comments Good movement. No cram ping or bleeding. Repeat growth with MFM, EFW 75%. Continue serial growth US per MFM. GCT and labs today. Discussed tdap vaccine. Desires EIL on 03/15 as partner is going to basic training for the [employer]. Discussed SP contact lens blocker and cutter, patient will make appointmetns with her to meet and discuss EIL. RTC 2 weeks. Flowsheet Date 01/20/2024 Lewis Score Blood Edema Fundus Height Fundus Units Glucose Ketones Leukocytes Nitrite Labor Signs Protein Cervic Dilation Cervic Effacement Cervic Station neg none none trace Type Weight in lbs Pre/Post Dialysis Refused Weight 246.401677947154 BP Diastolic BP Location Tested BP Systolic [...] Weight in lbs Pre/Post Dialysis Refused Weight 246.101678594517 BP Diastolic BP Location Tested BP Systolic [...] Weight in lbs Pre/Post Dialysis Refused Weight 249.887431745650 BP Diastolic BP Location Tested BP Systolic [...] Weight in lbs Pre/Post Dialysis Refused Weight 247.818319724588 BP Diastolic BP Location Tested BP Systolic BP Type 77 122 Fetus Heart Rate Present Fetus Movement Comments Flowsheet Date 02/17/2024 Lewis Score Blood Edema Fundus Height Fundus Units Glucose Ketones Leukocytes Nitrite Labor Signs Protein Cervic Dilation Cervic Effacement Cervic Station none Type Weight in lbs Pre/Post Dialysis Refused Weight 247.452279612789 BP Diastolic BP Location Tested BP Systolic [...] Weight in lbs Pre/Post Dialysis Refused Weight 248.554234365222 BP Diastolic BP Location Tested BP Systolic [...] Type Weight in lbs Pre/Post Dialysis Refused 249.775240268751 BP Diastolic BP Location Tested BP Systolic [...] Weight in lbs Pre/Post Dialysis Refused Weight 248.016978655865 BP Diastolic BP Location Tested BP Systolic BP Type 74 L arm 118 sitting Fetus Heart Rate Present A 140 Fetus Movement A Yes Comments Good movement. No ctx, LOF, VB. Will move induction from 03/15 to 03/16 due to staffing issues at [facility]. BPP 10/28 at [facility] Thursday, NST reactive today. Labor precautions reviewed. Menstrual History Last Menstrual Date Menses Monthly On Bcp Conception Prior Menses Frequency Hcg Plus Date Menarche Onset Age 0306/03/2023 Genetic Screening And Infection History Question Response Note Mental Retardation/Autism false Patient's Age Will Be 35 Years Or Older At Estim ated Date of Delivery false Thalassemia (Kosovan, Italian, Mediterranean, Or Background): MCV < 80 false Neural Tube Defect (Meningomyelocele, Spina Bifi da, Or Anencephaly) false Congenital Heart Defect false Down Syndrome false Ben-Sachs (eg, Latter Day, Cajun, Yakut-[place]se[place]) f alse Juve Disease false Sickle Cell Disease Or Trait () false Hemophilia Or Other Blood Disorders false Muscular Dystrophy false Cystic Fibrosis false [place]'s Chorea false Intellectual Disability/Autism false If Yes, [...]
--- OUTSIDE RECORDS SUMMARY | 2024-03-24 00:26 | XMS_ITS | Continuity of Care Document ---
Author Organization [facility] Address [address] [place] [address] [place] [address] Assessment No assessment recorded. Plan of Treatment [...] + non-stres s test 2023 024 [email or web address] [facility], [address], [place], [address], 02/10/2024 21:16:39 Medication Orders None recorded. Patient TargetsNo targets recorded. Patient InstructionsNo instructions recorded. Reason for Referral None Reported. Results Created Date Observation Date Name Description Value Unit Range Abnormal Flag Note LastModifiedBy Organization Detail LastModifiedTime 09/08/1909/08/2023 US, obste tric, nucha l trans lucen cy No observ ation record ed. R[facility] [address], [place], [address], 09/10/2023 10:53:56 09/08/19 24 09/08/2023 US, obste tric, nucha l trans lucen cy No observ ation record ed. [email or web address] [facility] [address], [place], [address], 09/08/2023 13:17:08 09/14/19 24 09/14/2023 US, obste tric, follo w-up No observ ation record ed. [email or web address] [facility] [address], [place], [address], 09/16/2023 14:33:23 09/14/19 24 09/14/2023 US, obste tric, trans abdom inal No observ ation record ed. [place] [email or web address] [facility] [address], [place], [address], 09/15/2023 15:09:15 10/12/19 24 10/12/2023 US, obste tric No observ ation record ed. [email or web address] [facility] [address], [place], [address], 10/13/2023 16:44:42 11/09/19 24 11/09/2023 US, obste tric, follo w-up No observ ation record ed. [email or web address] [facility] [address], [place], [address], 11/10/2023 16:45:37 12/07/19 24 12/07/2023 imagi ng/di agnos tic resul t No observ ation record ed. [facility] [address], [place], [address], 12/11/2023 10:32:37 01/04/20 24 01/04/2024 imagi ng/di agnos tic resul t No observ ation record ed. [facility] [address], [place], [address], 01/07/2024 12:12:29 02/02/20 24 02/01/2024 US, obste tric, follo w-up No observ ation record ed. [facility] [address], [place], [address], 02/04/2024 10:30:16 02/10/20 24 02/10/2024 non-s tress test No observ ation record ed. [email or web address] [facility] [address], [place], [address], 02/10/2024 11:58:14 02/10/20 24 02/10/2024 US, obste tric, bioph ysica l profi le + non-s tress test No observ ation record ed. [email or web address] [facility] [address], [place], [address], 02/10/2024 12:45:48 02/10/20 24 02/10/2024 US, obste tric, bioph ysica l profi le + non-s tress test No observ ation record ed. [email or web address] [address], [place], [address], 02/10/2024 22:00:22 02/17/20 24 02/17/2024 US, obste tric, bioph ysica l profi le + non-s tress test No observ ation record ed. [email or web address] [facility] [address], [place], [address], 02/17/2024 13:14:35 02/17/20 24 02/17/2024 US, obste tric, bioph ysica l profi le + non-s tress test No observ ation record ed. [email or web address] [address], [place], [address], 02/19/2024 01:03:22 02/17/20 24 02/17/2024 non-s tress test No observ ation record ed. [email or web address] [facility] [address], [place], [address], 02/17/2024 18:46:39 02/17/20 non-s tress test No observ ation record ed. [facility] [address], [place], [address], 02/17/2024 18:48:46 02/24/20 24 02/24/2024 US, obste tric, bioph ysica l profi le + non-s tress test No observ ation record ed. [facility] [address], [place], [address], 02/24/2024 14:24:08 02/24/20 24 02/24/2024 US, obste tric, follo w-up No observ ation record ed. [facility] [address], [place], [address], 02/24/2024 14:24:20 02/24/20 24 02/24/2024 US, obste tric, bioph ysica l profi le + non-s tress test No observ ation record ed. [email or web address] [address] [facility], [place], [address], 02/25/2024 11:50:17 02/24/20 24 02/24/2024 non-s tress test No observ ation record ed. [email or web address] [facility] [address], [place], [address], 02/24/2024 12:00:12 03/01/20 24 02/29/2024 imagi ng/di agnos tic resul t No observ ation record ed. [facility] [address] [place] [address], [address], 03/01/2024 17:20:31 03/03/20 24 03/03/2024 US, obste tric, bioph ysica l profi le + non-s tress test No observ ation record ed. [email or web address] [facility] [address], [place], [address], 03/03/2024 12:20:34 03/03/20 24 03/03/2024 US, obste tric, bioph ysica l profi le + non-s tress test No observ ation record ed. [email or web address] [address], [place], [address], 03/03/2024 20:54:47 03/03/20 24 03/03/2024 non-s tress test No observ ation record ed. [email or web address] [facility] [address], [place], [address], 03/03/2024 14:58:50 03/08/20 24 03/07/2024 imagi ng/di agnos tic resul t No observ ation record ed. [facility] [address], [address], 03/09/2024 00:46:18 03/09/20 24 03/09/2024 non-s tress test No observ ation record ed. [email or web address] [facility] [address], [place], [address], 03/09/2024 11:26:46 03/14/20 24 03/14/2024 imagi ng/di agnos tic resul t No observ ation record ed. [facility] [address], [address], 03/14/2024 13:30:26 03/17/20 24 03/14/2024 US, obste tric, follo w-up No observ ation record ed. [email or web address] [facility] [address] [place] [address], [address], 03/20/2024 15:27:00 Result Notes None recorded. Problems Name Problem SNOMED Code Status Onset Date Resolution Date Notes Provider Name and Address Organization Details Recorded Time 15125615 Active 2023 [facility], [facility] 4 12:13:08 Monosomy X 969928762 Active HR on NIPT, declined CVS/amnio centesis HEIDI COLON MD [address], [place], [address], [facility] 4 12:18:50 Monosomy X 755824772 Active HR on NIPT, declined CVS/amnio centesis HEIDI COLON MD [address], [place], [address], [facility] 4 12:18:50 Body mass index 40+ - severely obese 452521902 Active weekly testing @34wks Jillian Morin [facility] 4 15:45:52 Problem Notes None recorded. Procedures Surgical History None recorded. Imaging Results Imaging Date Name Status LastModified by Organiz ation Details LastModified Time 02/10/2024 US, obstetric, biophysical profile + non-stress test completed [email or web address] [facility] [address], [place], [address], 02/10/2024 12:45:48 02/10/2024 US, obstetric, biophysical profile + non-stress test completed [email or web address] [address], [place], [address], 02/10/2024 22:00:22 Procedure Notes None recorded. Medical Equipment None [...] 4 162.56 cm 99.28 % 42.7 kg/m2 216477. 5 g 121 mm[Hg] 76 mm[Hg] Tammie Haddad [facility] 4 12:19:44 Social History Question Answer Notes LastModified by Organizat ion Details LastModified Time Tobacco Smoking Status Never Smoker Susana Dove alyssa, [facility] 2023 15:08:14 What Is Your [...] Or The Highest Degree You Have Received? [id number] Information not available 2023 Are There Any [...] Anxious, Or Unable To Sleep At Night)? [id number] Information not available 2023 Do You Use [...] you able to care for yourself? Yes [email or web address] Information not available 01/06/2024 Do you have difficulty dressing or bathing? No [email or web address] Information not available 01/06/2024 What is your [...] N Breast Cancer N Blood Transfusion N Lung Disease N [...] Diagnosis/Indication Diagnosis SNOMED-CT Code Diagnosis ICD10 Code 488144 HEIDI COLON MD [facility] [address] [address] 01/20/2024 11:06:31 01/20/2024 12:07:38 Anemia of 50102905 O99.019 Maternal o besity complicating , childbirth and the puerperium, antepartum 0546164818 07 O99.212 Gestation period, 31 weeks 20905236 Z3A.31 [id number] HEIDI COLON MD [facility] [address],[place] [address] 02/03/2024 10:35:23 02/03/2024 11:50:26 Nausea and vomiting 22421068 R11.2 Gestation period, 33 weeks 87880830 Z3A.33 Monosomy X 825190079 Q96 .9 [id number] [facility] [address],[place] [address] 02/10/2024 11:07:14 02/10/2024 12:40:48 Gestation period, 34 weeks 17324399 Z3A.34 Monosomy X 133665591 Q96 .9 [id number] Corin Christina [facility] [address],[place] [address] 02/10/2024 11:06:55 02/10/2024 12:05:49 Maternal obesity complicating , childbirth and the puerperium, antepartum 7838424701 07 O99.215 [id number] Tyra Miller [facility] [address] [address] 02/10/2024 11:17:13 02/10/2024 12:10:38 Maternal obesity complicating , childbirth and the puerperium, antepartum 7183525343 07 O99.213 Z3A.34 Health Concerns Section Related Observation LastModified by Organization Detai ls LastModified Time None Recorded Concern Status LastModified by Organization Details LastModified Time None Recorded Payers Encounter Date Sequence Insurance Name Policy Number Policy Kraus Covered Member ID Kraus Member ID Guarantor Name 02/10/2024 1 [facility] (MEDICAID HMO) [id number] Loulou Chang [id number] Dudley Natarajan OBGyn Episode Ob Episode Information Episode Created Date Number of Fetuses Patient Bloodtype Patient rh Status Prepregnancy Weight lbs Domestic Partner Domestic Partner Phone Father Name Metal Finish Inspector Status 09/08/19 24 1 O Positive 244.2 OPEN Fetus Data First Name Last Name Admitted to NICU Weight (g) Sex Living Outcome Pediatric Complications Fetus ID Race Codes Race Delivery Type [id number] Problems Problem Notes MFM: 09/13 with genetic couns elor & STACK ATTENDANT ultrasound, declined CVS10/11 @945 US & 11/08 945 US [facility] Problem Name Start Date End Date Resolution Snomed Code Not e Body mass index 40+ - severely obese 214446286 weekly testin g @34wks Monosomy X 232810089 HR on NIP T, declined CVS/amniocentesis Angus [...] Date Ultra Sound Latest Days Gestation 0 [email or web address] 09/08/2023 03/22/20 24 0 Pre- Flowsheet Flowsheet [...] Weight in lbs Pre/Post Dialysis Refused Weight 237.706937958975 BP Diastolic BP Location Tested BP Systolic BP Type 66 100 Fetus Heart Rate Present A 165 Fetus Movement Comments Patient presents to [facility] care. Nausea improved, no bleeding or cramping. complicated by high risk NIPT for monosomy X. Referral sent to [facility]. Discussed amniocentesis for diagnostic testing. Discussed risks of monosomy X. NT/NB wnl today. Other OB labs wnl. RTC 4 weeks, will follow up MFM referral. Flowsheet Date 10/07/2023 Lewis Score Blood Edema Fundus Height Fundus Units Glucose Ketones Leukocytes Nitrite Labor Signs Protein Cervic Dilation Cervic Effacement Cervic Station Type Weight in lbs Pre/Post Dialysis Refused Weight 236.188630263267 BP Diastolic BP Location Tested BP Systolic BP Type 72 116 Fetus Heart Rate Present A 160 Fetus Movement A No Comments Doing well, no movemen t yet. No cramping, bleeding or nausea. Saw MFM for HR Monosomy X on NIPT, declined CVS/amnio. Has follow up visit with them on Thursday. Discussed anatomy US with [facility], otherwise normal care in 4 weeks. Flowsheet Date 11/10/2023 Lewis Score Blood Edema Fundus Height Fundus Units Glucose Ketones Leukocytes Nitrite Labor Signs Protein Cervic Dilation Cervic Effacement Cervic Station Type Weight in lbs Pre/Post Dialysis Refused Weight 237.145806941969 BP Diastolic BP Location Tested BP Systolic BP Type 61 108 Fetus Heart Rate Present A 145 Fetus Movement A Yes Comments Baby moving well. Had anatom y US with [facility] yesterday, incomplete but normal visualized anatomy. Repeat in 4 weeks with M. No cramping or bleeding. RTC 4 weeks. Flowsheet Date 12/09/2023 Lewis Score Blood Edema Fundus Height Fundus Units Glucose Ketones Leukocytes Nitrite Labor Signs Protein Cervic Dilation Cervic Effacement Cervic Station neg none trace Type Weight in lbs Pre/Post Dialysis Refused 238.171742375582 BP Diastolic BP Location Tested BP Systolic [...] Type Weight in lbs Pre/Post Dialysis Refused 243.898062356161 BP Diastolic BP Location Tested BP Systolic BP Type 76 L arm 122 sitting Fetus Heart Rate Present Fetus Movement A Yes Comments Good movement. No cram ping or bleeding. Repeat growth with MFM, EFW 75%. Continue serial growth US per [facility]. GCT and labs today. Discussed tdap vaccine. Desires EIL on 03/15 as partner is going to basic training for the army. Discussed SP education analyst, patient will make appointmetns with her to meet and discuss EIL. RTC 2 weeks. Flowsheet Date 01/20/2024 Lewis Score Blood Edema Fundus Height Fundus Units Glucose Ketones Leukocytes Nitrite Labor Signs Protein Cervic Dilation Cervic Effacement Cervic Station neg none none trace Type Weight in lbs Pre/Post Dialysis Refused Weight 246.885927331152 BP Diastolic BP Location Tested BP Systolic BP Type 74 L arm 110 sitting Fetus Heart Rate Present A 145 Fetus Movement A Yes Comments Good movement, no cram ping or bleeding. Discussed RSV vaccine, info given. Will plan for EIl on 03/15 with SP. [facility] appointment mid January. Discussed anemia, will start Fe supplement. REcheck at 34 weeks. RTC 2 weeks Flowsheet Date 02/03/2024 Lewis Score Blood Edema Fundus Height Fundus Units Glucose Ketones Leukocytes Nitrite Labor Signs Protein Cervic Dilation Cervic Effacement Cervic Station neg none none trace Type Weight in lbs Pre/Post Dialysis Refused Weight 246.409179877747 BP Diastolic BP Location Tested BP Systolic [...] Weight in lbs Pre/Post Dialysis Refused Weight 249.036239082239 BP Diastolic BP Location Tested BP Systolic [...] Weight in lbs Pre/Post Dialysis Refused Weight 247.384708625700 BP Diastolic BP Location Tested BP Systolic BP Type 77 122 Fetus Heart Rate Present Fetus Movement Comments Flowsheet Date 02/17/2024 Lewis Score Blood Edema Fundus Height Fundus Units Glucose Ketones Leukocytes Nitrite Labor Signs Protein Cervic Dilation Cervic Effacement Cervic Station none Type Weight in lbs Pre/Post Dialysis Refused Weight 247.383910730280 BP Diastolic BP Location Tested BP Systolic [...] Weight in lbs Pre/Post Dialysis Refused Weight 248.422860023342 BP Diastolic BP Location Tested BP Systolic [...] Type Weight in lbs Pre/Post Dialysis Refused 249.027651937879 BP Diastolic BP Location Tested BP Systolic [...] Weight in lbs Pre/Post Dialysis Refused Weight 248.870954213200 BP Diastolic BP Location Tested BP Systolic BP Type 74 L arm 118 sitting Fetus Heart Rate Present A 140 Fetus Movement A Yes Comments Good movement. No ctx, LOF, VB. Will move induction from 03/15 to 03/16 due to staffing issues at [place]. BPP 8/8 at [facility] Thursday, NST reactive today. Labor precautions reviewed. Menstrual History Last Menstrual Date Menses Monthly On Bcp Conception Prior Menses Frequency Hcg Plus Date Menarche Onset Age 0306/03/2023 Genetic Screening And Infection History Question Response Note Mental Retardation/Autism false Patient's Age Will Be 35 Years Or Older At Estim ated Date of Delivery false Thalassemia (Greek, Chinese, Mediterranean, Or Background): MCV < 80 false Neural Tube Defect (Meningomyelocele, Spina Bifi da, Or Anencephaly) false Congenital Heart Defect false Down Syndrome false Ben-Sachs (eg, Uatsdin, Cajun, Citizen Of [place]occan) f alse Juve Disease false Sickle Cell Disease Or Trait () false Hemophilia Or Other Blood Disorders false Muscular Dystrophy false Cystic Fibrosis false Pownal's Chorea false Intellectual Disability/Autism false If Yes, [...]
--- OUTSIDE RECORDS SUMMARY | 2024-03-24 00:27 | XMS_ITS | Encounter Summary ---
Author Organization [facility] Health Address [address] [place] [address] Care Team Providers Care Weight Yardage Checker Name Role Phone Madeline Davis MD Primary Care Provider [phone] Encounter Details Date Type Department Care Team (Latest Contact Info) Description 02/01/2024 Travel Social History Tobacco Use Types Packs/Day Years Used Date Smoking Tobacco: Passive Smo ke Exposure - Never Smoker Smokeless Tobacco: Never Estimated Date of Delivery Comme nts Yes 03/22/2024 Based on Ultraso und Sex and Gender Information Value Date Recorded Sex Assigned at Not on file Gender Identity Not on file Sexual Orientation Not on file documented as of this encounter Plan of Treatment Not on file documented as of this encounter Visit Diagnoses Not on filedocumented in this encounter Care Teams Weight Yardage Checker Relationship Specialty Start Date End Date Mdaeline Davis MD [address] [place] [address] [address] [place] [address] PCP - General Family Medicine 07/31/18 documented as of this encounter
--- OUTSIDE RECORDS SUMMARY | 2024-03-24 00:27 | XMS_ITS | Encounter Summary ---
Author Organization [facility] Address [address] [place] [address] Care Team Providers Care Heat Treat Puller Name Role Phone Madeline Davis MD Primary Care Provider Reason for Referral * (Routine) - Open Specialty Diagnoses / Procedures Referred By Josemanuel silver Referred To Contact Diagnoses Encounter for ultrasound (HCC) Primigravida, antepartum (HCC) Obesity in (HCC) Asthma, unspecified asthma severity, unspecified whether complicated, unspecified whether persistent (HCC) BMI 40.0-44.9, adult (HCC) Family history of cleft lip and palate Abnormal chromosomal and genetic finding on screening of mother 38 weeks gestation of (HCC) Procedures BIOPHYSICAL PROFILE WO NST Priscilla Bacon MD [address] [place] [address] Referral ID Status Reason Start Date Expiration Date Visits Re quested Visits Authorized [id number] Open 03/10/2024 03/10/2025 1 1 ECTOR CASING * (Routine) - Open Specialty Diagnoses / Procedures Referred By Josemanuel silver Referred To Contact Diagnoses Encounter for ultrasound (HCC) Primigravida, antepartum (HCC) Obesity in (HCC) Asthma, unspecified asthma severity, unspecified whether complicated, unspecified whether persistent (HCC) BMI 40.0-44.9, adult (HCC) Family history of cleft lip and palate Abnormal chromosomal and genetic finding on screening of mother 38 weeks gestation of (HCC) Procedures BIOPHYSICAL PROFILE WO NST Priscilla Bacon MD [address] [place] [address] Referral ID Status Reason Start Date Expiration Date Visits Re quested Visits Authorized [id number] Open 03/10/2024 03/10/2025 1 1 ECTOR CASING Reason for Visit * Reason Comments Biophysical Profile Encounter Details Date Type Department Care Team (Latest Contact Info) Description 03/14/2024 10:26 AM INSPECTOR CASING - 03/14/2024 11:59 PM INSPECTOR CASING Hospital Encounter [facility] [address] [place] [address] Head, Mounika Mercer MD [address] [place] [address] Rowdy Hyatt MD [address] [place] [address] Discharge Disposition: Home or Self Care Social History Tobacco Use Types Packs/Day Years [...] on file documented as of this encounter Procedures Procedure Name Priority Date/Time Associated Diagnosis Comments BIOPHYSICAL PROFILE WO NST Routine 03/14/2024 11:22 AM INSPECTOR CASING Encounter for ultrasound (HCC) Primigravida, antepartum (HCC) Obesity in (HCC) Asthma, unspecified asthma severity, unspecified whether complicated, unspecified whether persistent (HCC) BMI 40.0-44.9, adult (HCC) Family history of cleft lip and palate 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 1. Para 0 Lab Tests Test ? Date ? Result NIPT ? 08/31/2023 ? High Risk Monosomy X - s/p genetic counseling, declined genetic diagnostic testing, wants ? cord blood sampling Maternal Assessment = Physical Exam ??Height 163 cm, 5 ft 4 in. Weight 113 kg, 249 lb. Initial weight 111 kg, 244 lb. BMI 42.74 kg/m?. Initial BMI 41.88 kg/m?. Weight gain 2 kg, 5 lb Method ====== View: Sufficient ========= Ngo . Number of fetuses: 1 Dating ====== ? Date ?Details ? Gest. age ? ANGUS Stated ANGUS ? 38 w + 6 d ?03/22/2024 Assigned dating based on stated ANGUS, selected on 02/01/2024 ?38 w + 6 d ?03/22/2024 General Evaluation Cardiac activity present. FHR 157 bpm. Presentation: cephalic Placenta: Placental site: anterior Amniotic Fluid Assessment ===== Amount of AF: normal MVP 5.2 cm. JUAN 14.2 cm. Q1 5.2 cm, Q2 4.8 cm, Q3 1.5 cm, Q4 2.7 cm Biophysical Profile 2: breathing movements 2: Gross body movements 2: tone 2: Amniotic fluid volume 10/28 Biophysical profile score Growth Overview = Exam date ?GA ?BPD (mm) ?HC (mm) AC (mm) FL (mm) HL (mm) EFW (g) 02/01/2024 ? 32w 6d ??87.5 ?96% ? 320.5 ?? 91% ? 312.4 ?? 96% ? 63.8 ?41% ? 55.7 ?47% ? 2494 ?90% 02/29/2024 ?36w 6d ??94.7 ?95% ? 344 ? 87% ? 340.5 ?? 88% ? 74.8 ?82% ? 65 ?90% ? 3456 ?88% Impression ========= Single, live, intrauterine at 38w 6d Amniotic fluid volume: normal 8 point Biophysical profile: Follow-up ======== Follow up ultrasound in 1 week for 8 point biophysical profile is recommended. if undelivered Coding ====== Procedures ? [address]5811: US Uterus Limited ? 80780: Biophysical Profile W/O NST InnographyS Anatomical Region Laterality Modality Other 03/14/2024 11:2 2 AM INSPECTOR CASING Priscilla Bacon MD [place] ORDERABLES documented in this encounter Visit Diagnoses Diagnosis Encounter for ultrasound (HCC)- Primary Encounter for routine screening for malformation using ultrasonics Primigravida, antepartum (HCC) Obesity in (HCC) Obesity complicating , childbirth, or the puerperium, unspecified as to episode of care or not applicable Asthma, unspecified asthma severity, unspecified whether complicated, unspecified whether persistent (HCC) BMI 40.0-44.9, adult (HCC) Body Mass Index 40.0-44.9, adult Family history of cleft lip and palate Family history of congenital anomalies 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
--- OUTSIDE RECORDS SUMMARY | 2024-03-24 00:27 | XMS_ITS | Data Portability ---
Author Organization [facility] Address [address] [place] [place] [address] Assessment Encounter Date Assessment Date Assessment LastModified by Organization Details LastModified Time 12/25/2017 12/25/2017 12yo G0 here for contraceptive counseling. [email or web address] Not available 12/25/2017 14:42:23 Plan of Treatment Reminders Order Date Submit Date Provider Last Modified By Organization Details Last Modified Time Details Appointments None recorded. Lab chlamydia trachomatis + neisseria gonorrhoeae + trichomonas vaginalis DNA panel, MAYELIN+probe, unspecified specimen 2022 023 [facility], [address] [place] [address], [address], [place], [address], 3 22:07:38 HIV 1+2 Ab + HIV1 p24 Ag, quantitativ e immunoassay , serum 2022 023 [facility], [address] [place] [address], [address], [place], [address], 3 10:28:49 hepatitis panel (A+B+C), acute, serum 2022 023 [facility], [address] [place] [address], [address], [place], [address], 3 22:07:37 test, urine 2022 023 [facility] In-Office Order, Internal Use Only DO Not Attach Compendium DO Not Attach Compendium, Do Not Delete/merge, [id number] 10:45:00 HbA1c (hemoglobin A1c), blood 2022 023 [facility], [address], [address], [place], [address], 3 22:07:40 lipid panel w/ direct LDL, serum 2022 023 [facility], [address] [place] [address], [address], [place], [address], 3 22:07:39 TSH + free T4, serum 2022 023 [facility], [address], [address], [place], [address], 22:07:39 Referral None recorded. Procedures None recorded. Surgeries None recorded. Imaging None recorded. Medication Orders [employer] Support Specialist a 150 mg/mL intramuscul ar suspension 2017 018 [email or web address] 14 [id number], [address] [place], [place], [id number], 09:46:47 [employer] Support Specialist a 150 mg/mL intramuscul ar syringe 2017 018 [email or web address] 14 Not available 09:46:49 Sprintec (28) 0.25 mg-35 mcg tablet 2022 023 [facility][id number], [address], [place], [id number], 10:28:04 Patient TargetsNo targets recorded. Patient Instructions Encounter Date Encounter Id Patient Instructions Last Modified By Organization Details Last Modified Time 08/06/2016 [id number] visual acuity* [email or web address] Not available 08/06/2016 15:28:29 12/17/2022 [id number] A healthy lifestyle: care instructions [email or web address] Not available 12/17/2022 10:21:17 Reason for Referral None Reported. Results Created Date Observation Date Name Description Value Unit Range Abnormal Flag Note LastModifiedBy Organization Detail LastModifiedTime 08/06/2016 visua l acuit y* R Eye Uncorrected 20/25 Not Available In-O ffice Order Internal Use Only DO Not Attach Compendium DO Not Attach Compendium, Do Not Delete/merge, [id number] 08/06/2016 14:47:21 08/06/2016 visua l acuit y* L Eye Uncorrected 20/25 Not Available In-O ffice Order Internal Use Only DO Not Attach Compendium DO Not Attach Compendium, Do Not Delete/merge, [id number] 08/06/2016 14:47:21 12/18/19 23 12/18/2022 ACUTE HEPAT ITIS hep A Ab, IgM Negati ve negati ve Not Available [facility] ([facility]) [address] [place], [address], 12/18/2022 22:07:37 12/18/19 23 12/18/2022 ACUTE HEPAT ITIS HBsAg screen Negati ve negati ve Not Available [facility] ([facility]) [address] [place], [address], 12/18/2022 22:07:37 12/18/19 23 12/18/2022 ACUTE HEPAT ITIS hep B core Ab, IgM Negati ve negati ve Not Available [facility] ([facility]) [address] [place], [address], 12/18/2022 22:07:37 12/18/19 23 12/18/2022 ACUTE HEPAT ITIS HCV Ab Non Reacti ve nonrea ctive Not Available [facility] ([facility]) [address] [place], [address], 12/18/2022 22:07:37 12/18/19 23 12/18/2022 CT, NG, TRICH VAG BY MAYELIN chlamydia by MAYELIN Negati ve negati ve Not Available [facility] ([facility]) [address] [place], [address], 12/18/2022 22:07:38 12/18/19 23 12/18/2022 CT, NG, TRICH VAG BY MAYELIN gonococcus by MAYELIN Negati ve negati ve Not Available [facility] ([facility]) [address] [place], [address], 12/18/2022 22:07:38 12/18/19 23 12/18/2022 CT, NG, TRICH VAG BY MAYELIN trich vag by MAYELIN Negati ve negati ve Not Available [facility] ([facility]) [address] [place], [address], 12/18/2022 22:07:38 12/18/19 23 12/18/2022 TSH+F REE T4 TSH 1.760 uIU/m L 0.450- 4.500 Not Available [facility] ([facility]) [address] [place], [address], 12/18/2022 22:07:39 12/18/19 23 12/18/2022 TSH+F REE T4 T4,free(dire ct) 1.17 NG/dL 0.93-1 .60 Not Available [facility] ([facility]) [address] [place], [address], 12/18/2022 22:07:39 12/18/19 23 12/18/2022 LP+LD L DIR cholesterol, total 137 mg/dL 100-16 9 Not Available [facility] ([facility]) [address] [place], [address], 12/18/2022 22:07:39 12/18/19 23 12/18/2022 LP+LD L DIR triglyceride s 44 mg/dL 0-89 Not Available [facility] ([facility]) [address] [place], [address], 12/18/2022 22:07:39 12/18/19 23 12/18/2022 LP+LD L DIR HDL cholesterol 42 mg/dL >39 Not Available [facility]) [address] [place], [address], 12/18/2022 22:07:39 12/18/19 23 12/18/2022 LP+LD L DIR VLDL cholesterol darvin 10 mg/dL 5-40 Not Available [facility] ([facility]) [address] [place], [address], 12/18/2022 22:07:39 12/18/19 23 12/18/2022 LP+LD L DIR LDL chol calc (nih) 85 mg/dL 0-109 Not Available [facility] ([facility]) [address] [place], [address], 12/18/2022 22:07:39 12/18/19 23 12/18/2022 LP+LD L DIR LDL chol. (direct) 88 mg/dL 0-109 Not Available [facility] ([facility]) [address] [place], [address], 12/18/2022 22:07:39 12/18/19 23 12/17/2022 HEMOG LOBIN A1C hemoglobin A1C 5.1 % 4.8-5. 6 Predi abete s: 5.7 - 6.4 Diabe minh: >6.4 Glyce kinjal contr ol for adult s with diabe minh: <7.0 Not Available [facility] ([facility]) [address] [place], [address], 12/18/2022 22:07:40 12/18/19 23 12/18/2022 HIV AB/P2 4 AG WITH REFLE X HIV Ab/P24 Ag screen Non Reacti ve nonrea ctive HIV Negat jennifer HIV-1 /HIV- 2 antib odies and HIV-1 p24 antig en were NOT detec luke. There is no labor atory evide nce of HIV infec tion. Not Available [facility] ([facility]) [address] [place], [address], 12/18/2022 22:07:40 12/18/19 23 12/18/2022 INTER PRETA TION: interpretati on: Commen t Not infec luke with HCV unles s early or acute infec tion is suspe cted (whic h may be delay ed in an immun ocomp romis ed indiv idual ), or other evide nce exist s to indic ate HCV infec tion. Not Available [facility] ([facility]) [address] [facility], [place], [address], 12/18/2022 22:07:37 12/18/19 23 12/17/2022 pregn jayson test, urine HCG negati ve Not Available In-Office Order Internal Use Only DO Not Attach Compendium DO Not Attach Compendium, Do Not Delete/merge, [id number] 12/17/2022 10:27:34 Result Notes None recorded. Problems Name Problem SNOMED Code Status Onset Date Resolution Date Notes Provider Name and Address Organization Details Recorded Time Asthma [id number] Active [address] [facility], [place] - [facility] 12/25/2017 12:14:27 Notes:eye problems Problem Notes None recorded. Medical Equipment None Reported. Allergies No known drug allergies Medications Name Sig Start Date Stop Date Status Note LastModified by Organization Details LastModified Time amoxicillin 500 mg capsule TAKE ONE CAPSULE BY MOUTH EVERY 8 HOURS FOR 10 DAYS 12/17 completed Not Available Not Available Not Available albuterol sulfate 2.5 mg/3 mL (0.083 %) solution for nebulizatio n USE 1 VIAL VIA NEBULIZER EVERY 6 HOURS active Not Available Not Available No t Available ondansetron HCl 8 mg tablet TAKE 1 TABLET BY MOUTH EVERY 8 HOURS NEEDED active Not Available Not Available No t Available ondansetron 8 mg disintegrat ing tablet DISSOLVE 1 TABLET ON THE TONGUE EVERY 6 TO 8 HOURS NEEDED active Not Available Not Available No t Available Depo-W[employer] Support Specialist a 150 mg/mL intramuscul ar suspension Inject 1 mL by intramusc ular route. 12/17 completed Not Available Not Available Not Available cephalexin 500 mg capsule TAKE 1 CAPSULE BY MOUTH EVERY 8 HOURS FOR 10 DAYS active Not Available Not Available No t Available triamcinolo ne acetonide 0.1 % topical ointment APPLY TOPICALLY TO THE AFFECTED AREA TWICE DAILY FOR 14 DAYS 12/17 completed Not Available Not Available Not Available montelukast 10 mg tablet TAKE 1 TABLET BY MOUTH EVERY NIGHT AT BEDTIME active Not Available Not Available No t Available albuterol sulfate HFA 90 mcg/actuati on aerosol inhaler INHALE 2 PUFFS BY MOUTH EVERY 6 HOURS NEEDED active Not Available Not Available No t Available ferrous sulfate 325 mg (65 mg iron) tablet,josef yed release TAKE 1 TABLET BY MOUTH DAILY active Not Available Not Available No t Available loratadine 10 mg tablet TAKE 1 TABLET BY MOUTH EVERY NIGHT AT BEDTIME 12/17 completed Not Available Not Available Not Available Depo-Wan Support Specialist a 150 mg/mL intramuscul ar syringe Inject 1 mL by intramusc ular route. 12/17 completed Not Available Not Available Not Available nitrofurant oin monohydrate /macrocryst als 100 mg capsule TAKE 1 CAPSULE BY MOUTH EVERY 12 HOURS active Not Available Not Available No t Available Flovent HFA 110 mcg/actuati on aerosol inhaler INHALE 2 PUFFS BY MOUTH TWICE DAILY active Not Available Not Available No t Available Symbicort 80 mcg-4.5 mcg/actuati on HFA aerosol inhaler INHALE 2 PUFFS BY MOUTH EVERY NIGHT AT BEDTIME active Not Available Not Available No t Available Banophen 50 mg capsule TAKE ONE CAPSULE BY MOUTH FOUR TIMES DAILY NEEDED FOR ALLERGY SYMPTOMS 12/17 completed Not Available Not Available Not Available Estarylla 0.25 mg-35 mcg tablet TAKE 1 TABLET BY MOUTH EVERY DAY active Not Available Not Available No t Available Qvar RediHaler 80 mcg/actuati on HFA breath activated aerosol active Not Available Not Available Not Available WesTab Plus 27 mg iron-1 mg tablet TAKE 1 TABLET BY MOUTH EVERY DAY active Not Available Not Available No t Available Vitals Date Recorded Body weight Systolic blood pressure Diastolic blood pressure Provider Name and Address Organization Details Last Updated DateTime 12/25/2017 09186.67 g 102 mm[Hg] 62 mm[Hg] Cliff Lucero [place] - [facility] 12/25/2017 12:22:01 Date Recorded Body height Body mass index (BMI) Percentile per age and sex Body mass index (BMI) Body weight Respiratory rate Body temperature Oxygen saturation Oxygen saturation in Arterial blood by Pulse oximetry Heart rate Systolic blood pressure Diastolic blood pressure Provider Name and Address Organization Details Last Updated DateTime 3 158.75 cm 99 % 40.2 kg/m2 961935. 9 g 18 /min 98.6 [degF] 98 % 98 % 75 /min 102 mm[Hg] 62 mm[Hg] Alina Gifford [facility] 3 09:49:59 Date Recorded Body height Body weight Body mass index (BMI) Heart rate Respiratory rate Body temperature Systolic blood pressure Diastolic blood pressure Provider Name and Address Organization Details Last Updated DateTime 7 158.75 cm 73140.8 g 22.6 kg/m2 67 /min 67 /min 97.1 [degF] 110 mm[Hg] 60 mm[Hg] Marlene Figueroa MA [facility] 7 14:47:02 Social History Question Answer Notes LastModified by [employer] ion Details LastModified Time Tobacco Smoking Status Never Smoker [facility] 12/25/2017 12:19:42 What Is Your Level Of Alcohol Consumption? None [email or web address] Information not available 12/17/2022 What Is Your Level Of Caffeine Consumption? None [email or web address] Information not available 12/17/2022 What Was The Date Of Your Most Recent Tobacco Screening? 12/17/2022 [email or web address] Information not available 12/17/2022 Do You Use Any Illicit Or Recreational Drugs? No [email or web address] Information not available 12/17/2022 Has Tobacco Cessation Counseling Been Provided? Yes [email or web address] Information not available 12/17/2022 On What Date Was Tobacco Cessation Counseling Provided? 12/17/2022 [email or web address] Information not available 12/17/2022 Do You Or Have You Ever Used Any Other Forms Of Tobacco Or Nicotine? No Information not available 12/17/2022 Sex: Unknown Functional Status None recorded. Mental Status None recorded. Family History Relationship Description Onset Age of this Age Resolved Age Notes LastModified by Organization Details LastModified Time Mother Heart disease abyasma Not available 2017 12:13:55 Medical History Condition Response Asthma Y Gynecological History Statement/Question Response Flow Moderate Sexually Active? N Menses Monthly Y STIs/STDs N HPV Vaccine Y Date of Last Pap Smear Duration of Flow (days) 3-5 Sexual Problems? N Age at Menarche 11 LMP Definite Obstetrics History GPAL:G 0 P 0 0 0 0 Immunizations Vaccine Type Date Status Note Provider Nam e and Address Organization Details Recorded Time meningococcal MCV4P 7 completed Not Available [facility] 04/09/2019 02:39:52 Tdap 7 completed Not Available [facility] 04/09/2019 02:33:31 Influenza, split virus, quadrivalent, PF 3 completed MARY FERNÁNDEZ NP Attn: Accounting,204 1 [facility], [place], [place], [address] [place] [address], [facility] 12/19/2022 04:27:41 DTP 5 completed MARY FERNÁNDEZ NP Attn: Accounting,204 1 [facility], [place], [place], [address] [place] [address], [facility] 12/17/2022 10:14:09 DTP 5 completed MARY FERNÁNDEZ NP Attn: Accounting,204 1 [facility], [place], [place], [address] [place] [address], [facility] 12/17/2022 10:14:09 DTP 6 completed MARY FERNÁNDEZ NP Attn: Accounting,204 1 [facility], [place], [place], [address] [place] [address], [facility] 12/17/2022 10:14:09 DTP 7 completed MARY FERNÁNDEZ NP Attn: Accounting,204 1 [facility], [place], [place], [address] [place] [address], [facility] 12/17/2022 10:14:09 DTP 9 completed MARY FERNÁNDEZ NP Attn: Accounting,204 1 [facility], [place], [place], [address] [place] [address], [facility] 12/17/2022 10:14:09 polio, unspecified formulation 5 completed MARY FERNÁNDEZ NP Attn: Accounting,[address], [place], [address], [place] [facility] 12/17/2022 10:14:09 polio, unspecified formulation 5 completed MARY FERNÁNDEZ NP Attn: Accounting,204 1 [facility], [place], [address], [place] [facility] 12/17/2022 10:14:09 polio, unspecified formulation 6 completed MARY FERNÁNDEZ NP Attn: Accounting,[address] [facility], [place], [address], [place] [facility] 12/17/2022 10:14:09 polio, unspecified formulation 6 completed Marlene Figueroa [place], [place] [facility] 08/05/2016 11:16:39 polio, unspecified formulation 9 completed MARY FERNÁNDEZ NP Attn: Accounting,[address] [facility], [place], [address], [place] [facility] 12/17/2022 10:14:09 Hib, unspecified formulation 5 completed Marlene Figuero[place] [facility] 08/05/2016 11:17:01 Hib, unspecified formulation 5 completed Marlene Figuero[place] [facility] 08/05/2016 11:17:07 Hib, unspecified formulation 6 completed Marlene Figuero[place] [facility] 08/05/2016 11:17:14 Hib, unspecified formulation 6 completed Marlene Figuero[place] [facility] 08/05/2016 11:17:20 pneumococcal, unspecified formulation 5 completed MARY FERNÁNDEZ NP Attn: Accounting,204 [address] [facility], [place], [address], [place] [facility] 12/17/2022 10:14:09 pneumococcal, unspecified formulation 5 completed MARY FERNÁNDEZ NP Attn: Accounting,204 [address] [facility], [place], [address], [place] [facility] 12/17/2022 10:14:09 pneumococcal, unspecified formulation 6 completed MARY FERNÁNDEZ NP Attn: Accounting,204 1 [facility], [place], [place], [address] [place] [address], [place] [facility] 12/17/2022 10:14:09 pneumococcal, unspecified formulation 6 completed MARY FERNÁNDEZ NP Attn: Accounting,204 1 [facility], [place], [place], [address] [place] [address], [place] [facility] 12/17/2022 10:14:09 Hep B, unspecified formulation 5 completed MARY FERNÁNDEZ NP Attn: Accounting,204 1 [facility], [place], [place], [address] [place] [address], [place] [facility] 12/17/2022 10:14:09 Hep B, unspecified formulation 5 completed MARY FERNÁNDEZ NP Attn: Accounting,204 1 [facility], [place], [place], [address] [place] [address], [place] [facility] 12/17/2022 10:14:09 Hep B, unspecified formulation 6 completed MARY FERNÁNDEZ NP Attn: Accounting,204 1 [facility], [place], [address] [place] [address], [place] [facility] 12/17/2022 10:14:09 MMR 6 completed Marlene Figuero[place] [facility] 08/05/2016 11:18:34 MMR 9 completed Marlene Figuero[place] [facility] 08/05/2016 11:18:40 varicella 7 completed Marlene Figuero[place] [facility] 08/05/2016 11:19:04 varicella 3 completed MARY FERNÁNDEZ NP Attn: Accounting,204 1 [facility], [place], [place], [address] [place] [address], [place] [facility] 12/17/2022 10:14:09 Hep A, unspecified formulation 3 completed MARY FERNÁNDEZ NP Attn: Accounting,204 1 [facility], [place], [address], [facility] 12/17/2022 10:14:09 Hep A, unspecified formulation 4 completed MARY FERNÁNDEZ NP Attn: Accounting,204 1 [facility], [place], [address], [facility] 12/17/2022 10:14:09 Past Encounters Encounter ID Performer Location Encounter Start Date Encounter Closed Date Diagnosis/Indication Diagnosis SNOMED-CT Code Diagnosis ICD10 Code [id number] DARWIN Ramirez [facility] [address] [place] [address] 08/06/2016 14:44:38 08/06/2016 15:34:07 History and physical examination, [facility] [id number] Z02.0 [id number] Herbie Monique e ([employer]) [address] [place] [address] 12/25/2017 11:55:32 12/29/2017 10:55:21 Contraception care 731520775 Z30.40 [id number] MARY FERNÁNDEZ NP [facility] ([facility]) [address] [place] [address] 12/17/2022 09:30:00 12/19/2022 12:13:21 Morbid obesity 899745445 E66.01 Venereal d isease screening 571645979 Z11.3 Initial pr escription of oral contraception 099612381 Z30.011 Administra tion of influenza vaccine 86762336 Z23 [id number] Syed Knight MD [facility] ([facility]) [address] [place] [address] 03/14/2024 15:05:00 03/19/2024 17:28:27 Health Concerns Section Related Observation LastModified by Organization Detai ls LastModified Time None Recorded Concern Status LastModified by Organization Details LastModified Time None Recorded Advance Directives Directive None Recorded Payers Encounter Date Sequence Insurance Name Policy Number Policy Kraus Covered Member ID Kraus Member ID Guarantor Name 08/06/2016 1 [facility] (MEDICAID HMO) [id number] Loulou Chang [id number] Tamica Jewell 12/25/2017 1 [facility] (MEDICAID HMO) [id number] 0003 Loulou Chang [id number] Tamica Jewell 12/17/2022 1 [facility] (MEDICAID HMO) [id number] 0003 Loulou Chang [id number] Tamica Jewell 03/14/2024 1 [facility] (MEDICAID HMO) [id number] 0003 Louloura Chang [id number] Tamica Jewell Notes Date Note Type Note Provider Name and Address Organization Details Recorded Time 08/06/2016 text/html presents for susannah ool physical. reports no problems/concerns. DARWIN Ramirez Attn: Accounting,[address] [facility], [place], [address], [facility] 08/06/2016 15:29:02 12/25/2017 text/html Gabrielle is a 12yo G0 who presents for initiation of contraception. Mother present, states has other daughters with teenage pregnancies and desires contraception initiation despite patient not yet experiencing sexual debut. With mother outside of room, patient denies any form of sexual activity to date - vaginal, anal, oral or digital manipulation. Also denies experimentation with drugs or alcohol. Reports menarche at age 11, now with regular, monthly menstrual periods consisting of 3-5d of bleeding. Denies excessive bleeding or cramping. LMP 11/30/17. Herbie shah, [place] [facility] 12/25/2017 16:20:50 12/17/2022 text/html The patient pres ents to the office for a routine office visit. She is here to establish care. She would like to discuss going on control. She would also like to be tested for STI's. She denies additional symptoms or concerns. MARY FERNÁNDEZ NP Attn: Accounting,[address] [facility], [place], [address], [facility] 12/19/2022 04:30:12 03/14/2024 text/html pt no show. lady t opened in error. Syed Knight MD Attn: Accounting,[address] [facility], [place], [address], [facility] 03/19/2024 17:28:26 OBGyn Episode No OBEpisode recorded.
--- OUTSIDE RECORDS SUMMARY | 2024-03-24 00:27 | XMS_ITS | Referral Summary ---
Author Organization [facility] Address [address] [place] [address] Care Team Providers Care Faculty Support Coordinator Name Role Phone Madeline Davis MD Primary Care Provider [phone] Source Comments [facility],non-owned Affiliates and Associated Physician Practices is amultiple site organization consisting of ambulatory clinics and hospital sitesin [place], [place], [place] and [place]. This disclosure is being madepursuant to the Care Everywhere program and may not contain all information available regarding this patient. Last updated 17.[facility] Encounters Date Type Department Care Team Description 03/14/2024 10:26 AM TRANSCRIPTION COORDINATOR - 03/14/2024 11:59 PM TRANSCRIPTION COORDINATOR Hospital Encounter [facility] [address] [place] [address] Head, MD Edmar Perry Jeffrey D, MD Discharge Disposition: Home or Self Care 03/07/2024 10:18 AM TRANSCRIPTION COORDINATOR - 03/07/2024 11:59 PM TRANSCRIPTION COORDINATOR Hospital Encounter [facility] [address] [place] [address] Mounika Perry MD Discharge Disposition: Home or Self Care 02/29/2024 9:59 AM TRANSCRIPTION COORDINATOR - 02/29/2024 11:59 PM TRANSCRIPTION COORDINATOR Hospital Encounter [facility] [address] [place] [address] Mounika Perry MD Discharge Disposition: Home or Self Care 02/02/2024 Telephone [facility] [address] [place] [address] Rhea Florian Appointment 02/01/2024 Travel 02/01/2024 9:31 AM TRANSCRIPTION COORDINATOR - 02/01/2024 11:59 PM TRANSCRIPTION COORDINATOR Hospital Encounter [facility]/ EVALUATION UNIT [address] [place] [address] [address] [place] [address] Manuel Morris MD Discharge Disposition: Home or Self Care 01/05/2024 Telephone [facility] MAT[facility]/ EVALUATION UNIT [address] [place] [address] Socorro Stokes Scheduling 01/04/2024 Travel 01/04/2024 9:36 AM CDT - 01/04/2024 11:59 PM CDT Hospital Encounter [facility] MAT[facility]/ EVALUATION UNIT [address] [place] [address] Manuel Morris MD Discharge Disposition: Home or Self Care from Last 3 Months Allergies No known active allergies Medications Be aware that medications may not be up to date on this document. Always verify current medications with the patient. 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 Estimated Date of Delivery Comme nts Yes 03/22/2024 Based on Ultraso und Social History Tobacco Use Types Packs/Day Years Used Date Smoking Tobacco: Passive Smo ke Exposure - Never Smoker Smokeless Tobacco: Never Estimated Date of Delivery Comme nts Yes 03/22/2024 Based on Ultraso und Sex and Gender Information Value Date Recorded Sex Assigned at Not on file Gender Identity Not on file Sexual Orientation Not on file Last Filed Vital Signs Vital Sign Reading Time Taken Comments Blood Pressure 123/57 02/29/2024 11:45 AM TRANSCRIPTION COORDINATOR Pulse 97 02/29/2024 11:45 AM TRANSCRIPTION COORDINATOR Temperature 37.2 ??C (98.9 ??F) 07/31/2018 6:33 PM CD T Respiratory Rate 18 02/29/2024 11:45 AM TRANSCRIPTION COORDINATOR Oxygen Saturation - - Inhaled Oxygen Concentration - - Weight 112 kg (247 lb) 02/29/2024 11:45 AM TRANSCRIPTION COORDINATOR Height 164 cm (5' 4.57) 07/31/2018 6:33 PM CDT Body Mass Index - - Plan of Treatment Not on file Procedures Procedure Name Priority Date/Time Associated Diagnosis Comments BIOPHYSICAL PROFILE WO NST Routine 03/14/2024 11:22 AM TRANSCRIPTION COORDINATOR Encounter for ultrasound (HCC) Primigravida, antepartum (HCC) Obesity in (HCC) Asthma, unspecified asthma severity, unspecified whether complicated, unspecified whether persistent (HCC) BMI 40.0-44.9, adult (HCC) Family history of cleft lip and palate 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 38 weeks gestation of (HCC) BIOPHYSICAL PROFILE WO NST Routine 03/07/2024 10:36 AM TRANSCRIPTION COORDINATOR Obesity in (HCC) 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 Asthma, unspecified asthma severity, unspecified whether complicated, unspecified whether persistent (HCC) Encounter for ultrasound (HCC) Primigravida, antepartum (HCC) BMI 40.0-44.9, adult (HCC) Family history of cleft lip and palate 37 weeks gestation of (HCC) SONOGRAM - COMPLETE Routine 02/29/2024 1 0:20 AM TRANSCRIPTION COORDINATOR Supervision of high-risk of young primigravida (HCC) Obesity in (HCC) 32 weeks gestation of (HCC) 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 Linked Results Indication ======== Obesity Class III [...] recommended. if undelivered Coding ====== Procedures ? 72540: US Uterus Limited ? 56265: Biophysical Profile W/O NST [employer] PACS Anatomical Region Laterality Modality Other 03/14/2024 11:2 2 AM TRANSCRIPTION COORDINATOR Priscilla Bacon MD [facility] ORDERABLES * SONOGRAM - COMPLETE (02/29/2024 10:20 AM TRANSCRIPTION COORDINATOR) Only the most recent of3 resultswithin the time period is included. Linked Results Indication ======== Obesity Class III [...] 163 cm, 5 ft 4 in. Weight 112 kg, 247 lb. Initial weight 111 kg, 244 lb. BMI 42.40 kg/m?. Initial BMI 41.88 kg/m?. Weight gain 1 kg, 3 lb Method ====== View: Suboptimal view: limited by late gestational age. limited secondary to challenging acoustic properties ========= Ngo . Number of fetuses: 1 Dating ====== ? Date ?Details ? Gest. age ? ANGUS Stated ANGUS ? 36 w + 6 d ?03/22/2024 Assigned dating based on stated ANGUS, selected on 02/01/2024 ?36 w + 6 d ?03/22/2024 General Evaluation Cardiac activity present. FHR 145 bpm. Presentation: cephalic Placenta: Placental site: anterior Umbilical cord: 3 vessel cord Amniotic Fluid Assessment ===== Amount of AF: normal MVP 5.7 cm. JUAN 18.4 cm. Q1 5.3 cm, Q2 5.7 cm, Q3 4.1 cm, Q4 3.3 cm normal Biophysical Profile 0: breathing movements 2: Gross body movements 2: tone 2: Amniotic fluid volume NST: reactive 8/10 Biophysical profile score Non Stress Test NST interpretation: reactive. Baseline FHR 140 bpm. Baseline variability: moderate. Accelerations: present Biometry BPD ?94.7 ?mm ?38w 4d ??95% ? Hadlock HC ? 344.0 ?? mm ?39w 5d ??87% ? Hadlock AC ? 340.5 ?? mm ?38w 0d ??88% ? Hadlock Femur ?74.8 ?mm ?38w 2d ??82% ? Hadlock Humerus ?65.0 ?mm ?37w 5d ??90% ? Rodney HC / AC ?1.01 Weight Calculation: EFW ?3,456 ?? g ? 88% ? Hadlock EFW (lb,oz) ?7 lb 10 oz EFW by ? Hadlock ([id number]) Head / Face / Neck Biometry: Cephalic index ? 0.79 ?19% ? Nicolaides appropriate Growth Overview = Exam date ?GA ?BPD [...] ?88% Impression ========= Single, live, intrauterine at 36w 6d growth appears appropriate Amniotic fluid volume: normal Biophysical profile: 10/30 Follow-up ======== Follow up ultrasound in 1 week for 8 point biophysical profile is recommended Coding ====== Procedures ? 90993: [place] P[place] ? [address]: Biophysical Profile W NST [employer] PACS Anatomical Region Laterality Modality Other 02/29/2024 10:2 0 AM TRANSCRIPTION COORDINATOR Manuel Morris MD [facility] ORDERABLES from Last 3 Months Care Teams Faculty Support Coordinator Relationship Specialty Start Date End Date Madeline Davis MD [address] [place] [address] PCP - General Family Medicine 07/31/18
--- OUTSIDE RECORDS SUMMARY | 2024-03-24 00:27 | XMS_ITS | Encounter Summary ---
Author Organization [facility] Address [address] [place] [address] Care Team Providers Care Medication Nurse Name Role Phone Madeline Davis MD Primary Care Provider [phone] Reason for Referral * (Routine) - Open Specialty Diagnoses / Procedures Referred By Josemanuel silver Referred To Contact Diagnoses Obesity in (HCC) Abnormal chromosomal and genetic finding on screening of mother Asthma, unspecified asthma severity, unspecified whether complicated, unspecified whether persistent (HCC) Encounter for ultrasound (HCC) Primigravida, antepartum (HCC) BMI 40.0-44.9, adult (HCC) Family history of cleft lip and palate 37 weeks gestation of (HCC) Procedures BIOPHYSICAL PROFILE WO NST Head, Mounika Mercer MD [address] [place] [address] Referral ID Status Reason Start Date Expiration Date Visits Re quested Visits Authorized [id number] Open 03/02/2024 03/02/2025 1 1 S CUTTER HAND * (Routine) - Open Specialty Diagnoses / Procedures Referred By Contac t Referred To Contact Diagnoses Obesity in (HCC) Abnormal chromosomal and genetic finding on screening of mother Asthma, unspecified asthma severity, unspecified whether complicated, unspecified whether persistent (HCC) Encounter for ultrasound (HCC) Primigravida, antepartum (HCC) BMI 40.0-44.9, adult (HCC) Family history of cleft lip and palate 37 weeks gestation of ([facility]) Procedures BIOPHYSICAL PROFILE WO NST Mounika Perry MD [address] [place] [address] Referral ID Status Reason Start Date Expiration Date Visits Re quested Visits Authorized [id number] Open 03/02/2024 03/02/2025 1 1 S CUTTER HAND Reason for Visit * Reason Comments Biophysical Profile Encounter Details Date Type Department Care Team (Latest Contact Info) Description 03/07/2024 10:18 AM GLASS CUTTER HAND - 03/07/2024 11:59 PM GLASS CUTTER HAND Hospital Encounter [facility] & [facility] [address] [place] [address] HeadMounika MD [address] [place] [address] Discharge Disposition: Home or Self Care Social [...] Diagnosis Comments BIOPHYSICAL PROFILE WO NST Routine 03/07/2024 10:36 AM GLASS CUTTER HAND Obesity in (HCC) 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 Asthma, unspecified asthma severity, unspecified whether complicated, unspecified whether persistent ([facility]) Encounter for ultrasound ([facility]) Primigravida, antepartum ([facility]) BMI 40.0-44.9, adult ([facility]) Family history of cleft lip and palate 37 weeks gestation of ([facility]) documented in this encounter Results * BIOPHYSICAL PROFILE WO NST (03/07/2024 10:36 AM GLASS CUTTER HAND) Linked Results Indication ======== Obesity Class III [...] 163 cm, 5 ft 4 in. Weight 111 kg, 244 lb. Initial weight 111 kg, 244 lb. BMI 41.88 kg/m?. Initial BMI 41.88 kg/m?. Weight gain 0 kg, 0 lb Method ====== Transabdominal ultrasound examination. View: Sufficient ========= Ngo . Number of fetuses: 1 Dating ====== ? Date ?Details ? Gest. age ? ANGUS Stated ANGUS ? 37 w + 6 d ?03/22/2024 Assigned dating based on stated ANGUS, selected on 02/01/2024 ?37 w + 6 d ?03/22/2024 General Evaluation Cardiac activity present. FHR 175 bpm. Presentation: cephalic Placenta: Placental site: anterior Amniotic Fluid Assessment ===== Amount of AF: normal, normal MVP 6.2 cm. JUAN 20.2 cm. Q1 4.3 cm, Q2 4.0 cm, Q3 6.2 cm, Q4 5.6 cm Biophysical Profile 2: breathing movements 2: [...] ?82% ? 65 ?90% ? 3456 ?88% Anatomy The following structures appear normal: Abdomen ?Stomach. Kidneys. Bladder. Impression ========= Single, live, intrauterine at 37w 6d Amniotic fluid volume: normal, normal 8 point Biophysical profile: Follow-up ======== 1. Continue weekly 8 point biophysical profile Coding ====== Procedures ? 65670: US Uterus Limited ? 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 Abnormal findings on screening Asthma, unspecified asthma severity, unspecified whether complicated, unspecified whether persistent (HCC) Encounter for ultrasound ([facility]) Encounter for routine screening for malformation using ultrasonics Primigravida, antepartum ([facility]) BMI 40.0-44.9, adult ([facility]) Body Mass Index 40.0-44.9, adult Family history of cleft lip and palate Family history of congenital anomalies 37 weeks gestation of (HCC) state, incidental documented in this encounter Care Teams Medication Nurse Relationship Specialty Start Date End Date Madeline Davis MD [address] [place] [address] [address] [place] [address] PCP - General Family Medicine 07/31/18 documented as of this encounter
--- OUTSIDE RECORDS SUMMARY | 2024-03-24 00:27 | XMS_ITS | Clinical Summary ---
Author Organization [facility] Address [address] [place] [address] Care Team Providers Care Absence Management Consultant Name Role Phone Madeline Davis MD Primary Care Provider [phone] Source Comments [facility],non-owned Affiliates and Associated Physician Practices is amultiple site organization consisting of ambulatory clinics and hospital sitesin [place], [place], [place] and [place]. This disclosure is being madepursuant to the Care Everywhere program and may not contain all information available regarding this patient. Last updated 17.[facility] Allergies No known active allergies Medications Be aware that medications may not be up to date on this document. Always verify current medications with the patient. 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 Estimated Date of Delivery Comme nts Yes 03/22/2024 Based on Ultraso und Encounters Date Type Department Care Team Description 03/14/2024 10:26 AM ELEMENTARY ELL TEACHER - 03/14/2024 11:59 PM ELEMENTARY ELL TEACHER Hospital Encounter [facility] Maternal & Care [address] [place] [address] Head, MD Edmar Perry Jeffrey D, MD Discharge Disposition: Home or Self Care 03/07/2024 10:18 AM ELEMENTARY ELL TEACHER - 03/07/2024 11:59 PM ELEMENTARY ELL TEACHER Hospital Encounter [facility] & Care [address] [place] [address] Mounika Perry MD Discharge Disposition: Home or Self Care 02/29/2024 9:59 AM ELEMENTARY ELL TEACHER - 02/29/2024 11:59 PM ELEMENTARY ELL TEACHER Hospital Encounter [facility] & Care [address] [place] [address] Head, Mounika Mercer MD Discharge Disposition: Home or Self Care 02/02/2024 Telephone [facility] [address] [place] [address] Rhea Florian Appointment 02/01/2024 9:31 AM ELEMENTARY ELL TEACHER - 02/01/2024 11:59 PM ELEMENTARY ELL TEACHER Hospital Encounter [facility] MATERNAL/ EVALUATION UNIT [address] [place] [address] Manuel Morris MD Discharge Disposition: Home or Self Care 02/01/2024 Travel 01/05/2024 Telephone [facility] MATERNAL/ EVALUATION UNIT [address] [place] [address] Socorro Stokes Scheduling 01/04/2024 9:36 AM CDT - 01/04/2024 11:59 PM CDT Hospital Encounter [facility] MATERNAL/ EVALUATION UNIT [address] [place] [address] Manuel Morris MD Discharge Disposition: Home or Self Care 01/04/2024 Travel from Last 3 Months Social History Tobacco Use Types Packs/Day Years [...] Comments Blood Pressure 123/57 02/29/2024 11:45 AM ELEMENTARY ELL TEACHER Pulse 97 02/29/2024 11:45 AM ELEMENTARY ELL TEACHER Temperature 37.2 ??C (98.9 ??F) 07/31/2018 6:33 PM CD T Respiratory Rate 18 02/29/2024 11:45 AM ELEMENTARY ELL TEACHER Oxygen Saturation - - Inhaled Oxygen Concentration - - Weight 112 kg (247 lb) 02/29/2024 11:45 AM ELEMENTARY ELL TEACHER Height 164 cm (5' 4.57) 07/31/2018 6:33 PM CDT Body Mass Index - - Plan of Treatment Health Maintenance Due Date Last Done Comments PNEUMOCOCCAL VACCINE (1 of 2 - PCV) 2010 HIV SCREENING 07/09/2019 HPV VACCINE (1 - 3-dose series) 07/09/2019 CHLAMYDIA/GONORRHEA SCREENING 2020 HEPATITIS C SCREENING 07/04/2022 DEPRESSION SCREENING 03/23/2023 DTAP/TDAP/TD VACCINES (1 - Tdap) 07/09/2023 HEPATITIS B VACCINE (1 of 3 - 19+ 3-dose series) 07/09/2023 COVID-19 VACCINE ( - season) 2023 09/27/2021, 12/15/2020, 11/24/2020 INFLUENZA VACCINE (#1) 2023 3, 01/22/2022, 12/21/2019, Additional history exists OB-ONE HOUR GLUCOSE 12/15/2023 OB-TDAP CURRENT 12/22/2023 OB-RHOGAM INJECTION 12/29/2023 OB-GROUP B STREP SCREEN 02/16/2024 ZOSTER VACCINE (1 of 2) 2054 HIB VACCINE Aged Out No longer eligi ble based on patient's age to complete this topic MENINGOCOCCAL VACCINE Aged Out No shantanu xavi eligible based on patient's age to complete this topic Respiratory Syncytial Virus (RSV) Vaccine Pt: or over 60 yrs (No Doses Required) Completed Procedures Procedure Name Priority Date/Time Associated Diagnosis Comments BIOPHYSICAL PROFILE WO NST Routine 03/14/2024 11:22 AM ELEMENTARY ELL TEACHER Encounter for ultrasound (HCC) Primigravida, antepartum (HCC) Obesity in (HCC) Asthma, unspecified asthma severity, unspecified whether complicated, unspecified whether persistent (HCC) BMI 40.0-44.9, adult (HCC) Family history of cleft lip and palate 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 38 weeks gestation of ([facility]) BIOPHYSICAL PROFILE WO NST Routine 03/07/2024 10:36 AM ELEMENTARY ELL TEACHER Obesity in (HCC) 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 Asthma, unspecified asthma severity, unspecified whether complicated, unspecified whether persistent (HCC) Encounter for ultrasound (HCC) Primigravida, antepartum (HCC) BMI 40.0-44.9, adult ([facility]) Family history of cleft lip and palate 37 weeks gestation of (HCC) SONOGRAM - COMPLETE Routine 02/29/2024 1 0:20 AM ELEMENTARY ELL TEACHER Supervision of high-risk of young primigravida (HCC) Obesity in (HCC) 32 weeks gestation of (HCC) 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 if undelivered Coding ====== Procedures ? [id number]: US Uterus Limited ? 52193: Biophysical Profile W/O NST [employer] PACS Anatomical Region Laterality Modality Other 03/14/2024 11:2 2 AM ELEMENTARY ELL TEACHER Priscilla Bacon MD [facility] ORDERABLES * SONOGRAM - COMPLETE (02/29/2024 10:20 AM ELEMENTARY ELL TEACHER) Only the most recent of3 resultswithin the [...] lb 10 oz EFW by ? Hadlock ([id number]) Head / Face / Neck Biometry: Cephalic [...] profile is recommended Coding ====== Procedures ? 15068: [place] Preg Uterus [place] Up ? 12895: Biophysical Profile W NST [employer] PACS Anatomical Region Laterality Modality Other 02/29/2024 10:2 0 AM ELEMENTARY ELL TEACHER Manuel Morris MD [facility] ORDERABLES from Last 3 Months Care Teams Absence Management Consultant Relationship Specialty Start Date End Date Madeline Davis MD [address] [place] [address] PCP - General Family Medicine 07/31/18
--- OUTSIDE RECORDS SUMMARY | 2024-03-24 00:27 | XMS_ITS | Encounter Summary ---
Author Organization [facility] Address [address] [place] [address] Care Team Providers Care Lollypop Machine Operator Name Role Phone Madeline Davis MD Primary Care Provider [phone] Reason for Referral * (Routine) - Open Specialty Diagnoses / Procedures Referred By Josemanuel silver Referred To Contact Maternal Medicine Diagnoses Supervision of high-risk of young primigravida (HCC) Obesity in (HCC) 32 weeks gestation of (HCC) Abnormal chromosomal and genetic finding on screening of mother Procedures SONOGRAM - COMPLETE Manuel Morris MD [address] [address] [facility] Maternal Fet [address] [place] [address] Referral ID Status Reason Start Date Expiration Date Visits Re quested Visits Authorized [id number] Open 02/26/2024 02/25/2025 1 1 ER/WELDER * (Routine) - Open Specialty Diagnoses / Procedures Referred By Josemanuel silver Referred To Contact Maternal Medicine Diagnoses Supervision of high-risk of young primigravida (HCC) Obesity in (HCC) 32 weeks gestation of (HCC) Abnormal chromosomal and genetic finding on screening of mother Procedures SONOGRAM - COMPLETE Manuel Morris MD [address] [address] [facility] Maternal Fet [address] [place] [address] Referral ID Status Reason Start Date Expiration Date Visits Re quested Visits Authorized [id number] Open 02/26/2024 02/25/2025 1 1 ER/WELDER Reason for Visit * Reason Comments Ultrasound Encounter Details Date Type Department Care Team (Latest Contact Info) Description 02/29/2024 9:59 AM FITTER/WELDER - 02/29/2024 11:59 PM FITTER/WELDER Hospital Encounter [facility] [address] [place] [address] Head, Mounika Mercer MD [address] [facility] [place] [address] Discharge Disposition: Home or Self [...] on file documented as of this encounter Last Filed Vital Signs Vital Sign Reading Time Taken Comments Blood Pressure 123/57 02/29/2024 11:45 AM FITTER/WELDER Pulse 97 02/29/2024 11:45 AM FITTER/WELDER Temperature - - Respiratory Rate 18 02/29/2024 11:45 AM FITTER/WELDER Oxygen Saturation - - Inhaled Oxygen Concentration - - Weight 112 kg (247 lb) 02/29/2024 11:45 AM FITTER/WELDER Height - - Body Mass Index - - documented in this encounter Progress Notes * Ruba Garcia RN - 02/29/2024 11:50 AM CST Pt here for BPP and added on for NST. Pt accompanied today by her sig other. Pt reports feeling movement. Pt denies feeling regular contractions, she is unsure what they feel like. Denies loss of fluid, vaginal bleeding, epigastric pain or unrelieved headaches. No edema noted at this time. Pt's next OB visit is 03/02, she states she is scheduled for IOL on 03/15. Dr. Perry reviewed NST, orders received, reactive. See US report. Name: Loulou Chang Date of : 2005 Today's Date: 02/29/2024 36w6d NST RESULTS (MENESES) OBJECTIVE FINDINGS , Pulse: 97, Resp: 18, BP: 123/57 NST Indication(s): (BPP 6/8, off for breathing) Uterine Irritability: Yes Contractions: Irregular Frequency: 8-9 Duration (sec) Range: 100-120 Perceived Intensity: Mild OBJECTIVE FINDINGS Movement: Present Monitoring Mode: External Baseline: 145 BPM Variability: Moderate Decelerations: None Accelerations: Yes OTHER INFORMATION Ruba Garcia RN ER/WELDER documented in this encounter Plan of Treatment Not on file documented as of this encounter Procedures Procedure Name Priority Date/Time Associated Diagnosis Comments SONOGRAM - COMPLETE Routine 02/29/2024 10:20 AM FITTER/WELDER Supervision of high-risk of young primigravida (HCC) Obesity in (HCC) 32 weeks gestation of (HCC) 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 Number of fetuses: 1 Dating ====== [...] tone 2: Amniotic fluid volume NST: reactive 10/30 Biophysical profile score Non Stress Test NST [...] lb 10 oz EFW by ? Hadlock ([id number]) Head / Face / Neck Biometry: Cephalic [...] profile is recommended Coding ====== Procedures ? 19545: [place] ? 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
--- OUTSIDE RECORDS SUMMARY | 2024-03-24 00:27 | XMS_ITS | Patient Health Summary ---
Author Organization [facility] Address [address] [place] [address] Care Team Providers Care Supervisor Model Making Name Role Phone Madeline Davis MD Primary Care Provider [phone] Note from [facility] [place][note 2],non-owned Affiliates and Associated Physician Practices is amultiple site organization consisting of ambulatory clinics and hospital sitesin [place], [place], [place] and [place]. This disclosure is being madepursuant to the Care Everywhere program and may not contain all information available regarding this patient. Last updated 17.[facility] Molecular Imprints Allergies No known active allergies Medications Be aware that medications may not be up to date on this document. Always verify current medications with the patient. 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 Social History Tobacco Use Types Packs/Day Years [...] Comments Blood Pressure 123/57 02/29/2024 11:45 AM CIRCULAR HEAD SAW OPERATOR Pulse 97 02/29/2024 11:45 AM CIRCULAR HEAD SAW OPERATOR Temperature 37.2 ??C (98.9 ??F) 07/31/2018 6:33 PM CD T Respiratory Rate 18 02/29/2024 11:45 AM CIRCULAR HEAD SAW OPERATOR Oxygen Saturation - - Inhaled Oxygen Concentration - - Weight 112 kg (247 lb) 02/29/2024 11:45 AM CIRCULAR HEAD SAW OPERATOR Height 164 cm (5' 4.57) 07/31/2018 6:33 PM CDT Body Mass Index - - Procedures * BIOPHYSICAL PROFILE WO NST(Performed 03/14/2024) Performed for Encounter for ultrasound (HCC), Primigravida, antepartum (HCC), Obesity in (HCC), Asthma, unspecified asthma severity, unspecified whether complicated, unspecified whether persistent (HCC), BMI 40.0- 44.9, adult (HCC), Family history of cleft lip and palate, 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, 38 weeks gestation of ([facility]) * BIOPHYSICAL PROFILE WO NST(Performed 03/07/2024) Performed for Obesity in (HCC), 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, Asthma, unspecified asthma severity, unspecified whether complicated, unspecified whether persistent (HCC), Encounter for ultrasound ([facility]), Primigravida, antepartum (HCC), BMI 40.0-44.9, adult (HCC), Family history of cleft lip and palate, 37 weeks gestation of (HCC) * SONOGRAM - COMPLETE(Performed 02/29/2024) Performed for Supervision of high-risk of young primigravida (HCC), Obesity in (HCC), 32 weeks gestation of (HCC), 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 * SONOGRAM - COMPLETE(Performed 02/01/2024) Performed for Encounter for ultrasound to assess growth ([facility]) * SONOGRAM - COMPLETE(Performed 01/04/2024) Performed for 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 * SONOGRAM - COMPLETE(Performed 12/07/2023) Performed for 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 if undelivered Coding ====== Procedures ? [id number]: US Uterus Limited ? [id number]: Biophysical Profile W/O NST [facility] [employer] PACS Anatomical Region Laterality Modality Other 03/14/2024 11:2 2 AM CIRCULAR HEAD SAW OPERATOR Priscilla Bacon MD [facility] ORDERABLES * SONOGRAM - COMPLETE (02/29/2024 10:20 AM CIRCULAR HEAD SAW OPERATOR) Only the most recent of7 resultswithin the time period is included. Linked [...] lb 10 oz EFW by ? Hadlock ([id number]) Head / Face / Neck Biometry: Cephalic [...] ? 74.8 ?82% ? 65 ?90% ? 9996 ?88% Impression ========= Single, live, intrauterine at 36w 6d growth appears appropriate Amniotic fluid volume: normal Biophysical profile: 10/30 Follow-up ======== Follow up ultrasound in 1 week for 8 point biophysical profile is recommended Coding ====== Procedures ? [id number]: [place] ? [id number]: Biophysical Profile W NST [employer] PACS Anatomical Region Laterality Modality Other 02/29/2024 10:2 0 AM CIRCULAR HEAD SAW OPERATOR Manuel Morris MD [facility] ORDERABLES * XR KNEE RIGHT 2VW OR LESS (07/31/2018 7:03 PM CDT) Anatomical Region Laterality Modality Lower Extremity Radiographic Penny ging 08/01/2018 8:09 AM CDT Impressions 08/01/2018 8:10 AM CDT Small joint effusion and soft tissue swelling without evidence of fracture or dislocation. Reading Radiologist: Prachi Simms MD on 08/01/2018 at 8:10 AM Narrative 08/01/2018 8:10 AM CDT Exam: Right knee, 2 views HISTORY: 13-year-old female with pain and swelling in right knee after doing cartwheels COMPARISON: None FINDINGS: There is a small joint effusion, and soft tissue swelling is present in Hoffa's fat pad. There is no evidence of fracture or dislocation. The bone mineralization is normal. Procedure Note Prachi Simms MD - 08/01/2018 Exam: Right knee, 2 views HISTORY: 13-year-old female with pain and swelling in right knee after doing cartwheels COMPARISON: None FINDINGS: There is a small joint effusion, and soft tissue swelling is present in Hoffa's fat pad. There is no evidence of fracture or dislocation. The bone mineralization is normal. IMPRESSION Small joint effusion and soft tissue swelling without evidence of fracture or dislocation. Reading Radiologist: Prachi Simms MD on 08/01/2018 at 8:10 AM Mayela Marx MD DIAGNOSTIC IMAGING O RDERABLES Care Teams Supervisor Model Making Relationship Specialty Start Date End Date Madeline Davis MD [address] [place] [address] [address] [place] [address] PCP - General Family Medicine 07/31/18
--- OUTSIDE RECORDS SUMMARY | 2024-03-24 00:27 | XMS_ITS | Continuity of Care Document ---
Author Organization [facility] Address [address] [place] [address] Assessment No assessment recorded. Plan of Treatment [...] 8 mg disintegr ating tablet 2023 024 [id number], [address], [place], [id number], 02/03/2024 11:42:18 Patient TargetsNo targets recorded. Patient InstructionsNo instructions recorded. Reason for Referral None Reported. Results Created Date Observation Date Name Description Value Unit Range Abnormal Flag Note LastModifiedBy Organization Detail LastModifiedTime 09/08/1909/08/2023 US, obste tric, nucha l trans lucen cy No observ ation record ed. [address], [facility], [place], [address], 09/10/2023 10:53:56 09/08/1909/08/2023 US, obste tric, nucha l trans lucen cy No observ ation record ed. [email or web address] [facility] [address], [place], [address], 09/08/2023 13:17:08 09/14/19 24 09/14/2023 US, obste tric, follo w-up No observ ation record ed. [email or web address] [facility] [address] [facility], [place], [address], 09/16/2023 14:33:23 09/14/19 24 09/14/2023 US, obste tric, trans abdom inal No observ ation record ed. [address] [facility] [address], [place], [address], 09/15/2023 15:09:15 10/12/19 24 10/12/2023 US, obste tric No observ ation record ed. [address] [facility] [address], [place], [address], 10/13/2023 16:44:42 11/09/19 24 11/09/2023 US, obste tric, follo w-up No observ ation record ed. [facility] [address], [place], [address], 11/10/2023 16:45:37 12/07/19 24 12/07/2023 imagi ng/di agnos tic resul t No observ ation record ed. [facility] [address], [place], [address], 12/11/2023 10:32:37 01/04/20 24 01/04/2024 imagi ng/di agnos tic resul t No observ ation record ed. [facility] [address], [place], [address], 01/07/2024 12:12:29 02/02/20 24 02/01/2024 US, obste tric, follo w-up No observ ation record ed. [email or web address] [facility] [address] [facility], [place], [address], 02/04/2024 10:30:16 02/10/20 24 02/10/2024 non-s tress test No observ ation record ed. [email or web address] [address], [place], [address], 02/10/2024 11:58:14 02/10/20 24 02/10/2024 US, obste tric, bioph ysica l profi le + non-s tress test No observ ation record ed. [email or web address] [address], [place], [address], 02/10/2024 12:45:48 02/10/20 24 02/10/2024 US, obste tric, bioph ysica l profi le + non-s tress test No observ ation record ed. [email or web address] [address], [place], [address], 02/10/2024 22:00:22 02/17/20 24 02/17/2024 US, obste tric, bioph ysica l profi le + non-s tress test No observ ation record ed. [email or web address] [address], [place], [address], 02/17/2024 13:14:35 02/17/20 24 02/17/2024 US, obste tric, bioph ysica l profi le + non-s tress test No observ ation record ed. [email or web address] [address], [place], [address], 02/19/2024 01:03:22 02/17/20 24 02/17/2024 non-s tress test No observ ation record ed. [email or web address] [address] [address], [place], [address], 02/17/2024 18:46:39 02/17/20 non-s tress test No observ ation record ed. [email or web address] [facility] [address], [place], [address], 02/17/2024 18:48:46 02/24/20 24 02/24/2024 US, obste tric, bioph ysica l profi le + non-s tress test No observ ation record ed. [facility] [address], [place], [address], 02/24/2024 14:24:08 02/24/20 24 02/24/2024 US, obste tric, follo w-up No observ ation record ed. [facility] [address], [place], [address], 02/24/2024 14:24:20 02/24/20 24 02/24/2024 US, obste tric, bioph ysica l profi le + non-s tress test No observ ation record ed. [facility] [address] [facility], [place], [address], 02/25/2024 11:50:17 02/24/20 24 02/24/2024 non-s tress test No observ ation record ed. [email or web address] [address] [address], [place], [address], 02/24/2024 12:00:12 03/01/20 24 02/29/2024 imagi ng/di agnos tic resul t No observ ation record ed. [facility] [address] [place] [address], [address], 03/01/2024 17:20:31 03/03/20 24 03/03/2024 US, obste tric, bioph ysica l profi le + non-s tress test No observ ation record ed. [email or web address] [address], [place], [address], 03/03/2024 12:20:34 03/03/20 24 03/03/2024 US, obste tric, bioph ysica l profi le + non-s tress test No observ ation record ed. [email or web address] [address], [place], [address], 03/03/2024 20:54:47 03/03/20 24 03/03/2024 non-s tress test No observ ation record ed. [email or web address] [facility] [address], [place], [address], 03/03/2024 14:58:50 03/08/20 24 03/07/2024 imagi ng/di agnos tic resul t No observ ation record ed. [facility] [address], [address], 03/09/2024 00:46:18 03/09/20 24 03/09/2024 non-s tress test No observ ation record ed. [email or web address] [address], [place], [address], 03/09/2024 11:26:46 03/14/20 24 03/14/2024 imagi ng/di agnos tic resul t No observ ation record ed. [facility] [address] [place] [address], [address], 03/14/2024 13:30:26 03/17/20 24 03/14/2024 US, obste tric, follo w-up No observ ation record ed. [email or web address] [facility] [address] [place] [address], [address], 03/20/2024 15:27:00 Result Notes None recorded. Problems Name Problem SNOMED Code Status Onset Date Resolution Date Notes Provider Name and Address Organization Details Recorded Time 76738039 Active 2023 Jennie Grossman alyssa, [facility] 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 4 12:18:50 Monosomy X 923776871 Active HR on NIPT, declined CVS/amnio centesis HEIDI COLON MD [address], [place], [address], [facility] 4 12:18:50 Body mass index 40+ - severely obese 946090589 Active weekly testing @34wks [facility] 15:45:52 Problem Notes None recorded. [...] Details Last Updated DateTime 4 162.56 cm 42.2 kg/m2 99.2 % 243586. 72 g 118 mm[Hg] 66 mm[Hg] Maude Peterson [facility] 4 11:18:49 Social History Question Answer Notes LastModified by Organizat ion Details LastModified Time Tobacco Smoking Status Never Smoker Susana shah [facility] 2023 15:08:14 What Is [...] Or The Highest Degree You Have Received? [id number] Information not available 2023 Are There Any [...] Anxious, Or Unable To Sleep At Night)? [id number] Information not available 2023 Do You Use Any Illicit Or Recreational Drugs? No Information not available 2023 Do You Use Sunscreen Routinely? No Information not available 2023 Have You Used IV Drugs? No Information not available 2023 Sex: Unknown Functional Status Question Answer Note LastModified by Organizat ion Details LastModified Time Do you have difficulty walking or climbing stairs? No [email or web address] Information not available 01/06/2024 Are you able to walk? YESWOREST Information not available 2023 Are you able to care for yourself? Yes [email or web address] Information not available 01/06/2024 Do you have difficulty dressing or bathing? No [email or web address] Information not available 01/06/2024 What is your [...] Diagnosis/Indication Diagnosis SNOMED-CT Code Diagnosis ICD10 Code [id number] HEIDI COLON MD [facility] [address] [address] 01/06/2024 14:02:28 01/06/2024 14:43:21 Monosomy X 956509993 Q96.9 Maternal o besity complicating , childbirth and the puerperium, antepartum 8278096237 07 O99.212 Gestation period, 29 weeks 42407531 Z3A.29 [id number] HEIDI COLON MD [facility] [address] [address] 01/20/2024 11:06:31 01/20/2024 12:07:38 Anemia of 09141040 O99.019 Maternal o besity complicating , childbirth and the puerperium, antepartum 6555775744 07 O99.212 Gestation period, 31 weeks 52458746 Z3A.31 [id number] HEIDI COLON MD [facility] [address] [address] 02/03/2024 10:35:23 02/03/2024 11:50:26 Nausea and vomiting 47882671 R11.2 Gestation period, 33 weeks 58936237 Z3A.33 Monosomy X 702443063 Q96 .9 Health Concerns Section Related Observation LastModified by Organization Detai ls LastModified Time None Recorded Concern Status LastModified by Organization Details LastModified Time None Recorded Payers Encounter Date Sequence Insurance Name Policy Number Policy Kraus Covered Member ID Kraus Member ID Guarantor Name 02/03/2024 1 [facility] (MEDICAID HMO) [id number] Loulou Chang [id number] Dudley Natarajan OBGyn Episode Ob Episode Information Episode Created Date Number of Fetuses Patient Bloodtype Patient rh Status Prepregnancy Weight lbs Domestic Partner Domestic Partner Phone Father Name Residential Program Manager Status 09/08/19 24 1 O Positive 244.2 OPEN Fetus Data First Name Last Name Admitted to NICU Weight (g) Sex Living Outcome Pediatric Complications Fetus ID Race Codes Race Delivery Type [id number] Problems Problem Notes MFM: 09/13 with genetic couns elor & RIPRAP MAN ultrasound, declined CVS10/11 @945 US & 11/08 945 US [facility] Problem Name Start Date End Date Resolution Snomed Code Not e Body mass index 40+ - severely obese 100972767 weekly testin g @34wks Monosomy X 103219174 HR on NIP T, declined CVS/amniocentesis Angus [...] Date Ultra Sound Latest Days Gestation 0 [email or web address] 09/08/2023 03/22/20 24 0 Pre-jerri Flowsheet Flowsheet [...] Weight in lbs Pre/Post Dialysis Refused Weight 237.466056004385 BP Diastolic BP Location Tested BP Systolic BP Type 66 100 Fetus Heart Rate Present A 165 Fetus Movement Comments Patient presents to [facility] care. Nausea improved, no bleeding or cramping. complicated by high risk NIPT for monosomy X. Referral sent to [facility]. Discussed amniocentesis for diagnostic testing. Discussed risks of monosomy X. NT/NB wnl today. Other OB labs wnl. RTC 4 weeks, will follow up [facility] referral. Flowsheet Date 10/07/2023 Lewis Score Blood Edema Fundus Height Fundus Units Glucose Ketones Leukocytes Nitrite Labor Signs Protein Cervic Dilation Cervic Effacement Cervic Station Type Weight in lbs Pre/Post Dialysis Refused Weight 236.990335002129 BP Diastolic BP Location Tested BP Systolic BP Type 72 116 Fetus Heart Rate Present A 160 Fetus Movement A No Comments Doing well, no movemen t yet. No cramping, bleeding or nausea. Saw MFM for HR Monosomy X on NIPT, declined CVS/amnio. Has follow up visit with them on Thursday. Discussed anatomy US with [facility], otherwise normal care in 4 weeks. Flowsheet Date 11/10/2023 Lewis Score Blood Edema Fundus Height Fundus Units Glucose Ketones Leukocytes Nitrite Labor Signs Protein Cervic Dilation Cervic Effacement Cervic Station Type Weight in lbs Pre/Post Dialysis Refused Weight 237.384143109901 BP Diastolic BP Location Tested BP Systolic BP Type 61 108 Fetus Heart Rate Present A 145 Fetus Movement A Yes Comments Baby moving well. Had anatom y US with [facility] yesterday, incomplete but normal visualized anatomy. Repeat in 4 weeks with [facility]. No cramping or bleeding. RTC 4 weeks. Flowsheet Date 12/09/2023 Lewis Score Blood Edema Fundus Height Fundus Units Glucose Ketones Leukocytes Nitrite Labor Signs Protein Cervic Dilation Cervic Effacement Cervic Station neg none trace Type Weight in lbs Pre/Post Dialysis Refused 238.153158482992 BP Diastolic BP Location Tested BP Systolic BP Type 75 L arm 111 sitting Fetus Heart Rate Present A 150 Fetus Movement A Yes Comments Pateint c/o of lower back pa in and lower pelvic pain. Discussed tylenol, ice/hot packs, and belly band. Good movement. Had repeat anatomy with MF, all normal; EFW 90%, growth US scheduled for 4 weeks with [facility]. Discussed GCT and labs for next visit. RTC 3-4 weeks. Flowsheet Date 01/06/2024 Lewis Score Blood Edema Fundus Height Fundus Units Glucose Ketones Leukocytes Nitrite Labor Signs Protein Cervic Dilation Cervic Effacement Cervic Station neg none none trace Type Weight in lbs Pre/Post Dialysis Refused 243.878310504062 BP Diastolic BP Location Tested BP Systolic BP Type 76 L arm 122 sitting Fetus Heart Rate Present Fetus Movement A Yes Comments Good movement. No cram ping or bleeding. Repeat growth with MFM, EFW 75%. Continue serial growth US per [facility]. GCT and labs today. Discussed tdap vaccine. Desires EIL on 03/15 as partner is going to basic training for the [employer]. Discussed SP energy sales consultant, patient will make appointmetns with her to meet and discuss EIL. RTC 2 weeks. Flowsheet Date 01/20/2024 Lewis Score Blood Edema Fundus Height Fundus Units Glucose Ketones Leukocytes Nitrite Labor Signs Protein Cervic Dilation Cervic Effacement Cervic Station neg none none trace Type Weight in lbs Pre/Post Dialysis Refused Weight 246.744738096210 BP Diastolic BP Location Tested BP Systolic [...] Weight in lbs Pre/Post Dialysis Refused Weight 246.797992976067 BP Diastolic BP Location Tested BP Systolic BP Type 66 L arm 118 sitting Fetus Heart Rate Present Fetus Movement A Yes Comments Patient c/o of some nausea a nd [place]. No bleeding. Good movement. Had MFM [...] Weight in lbs Pre/Post Dialysis Refused Weight 249.796705226422 BP Diastolic BP Location Tested BP Systolic [...] Weight in lbs Pre/Post Dialysis Refused Weight 247.016686811577 BP Diastolic BP Location Tested BP Systolic BP Type 77 122 Fetus Heart Rate Present Fetus Movement Comments Flowsheet Date 02/17/2024 Lewis Score Blood Edema Fundus Height Fundus Units Glucose Ketones Leukocytes Nitrite Labor Signs Protein Cervic Dilation Cervic Effacement Cervic Station none Type Weight in lbs Pre/Post Dialysis Refused Weight 247.602230544250 BP Diastolic BP Location Tested BP Systolic [...] Weight in lbs Pre/Post Dialysis Refused Weight 248.714696585804 BP Diastolic BP Location Tested BP Systolic [...] Type Weight in lbs Pre/Post Dialysis Refused 249.701161380322 BP Diastolic BP Location Tested BP Systolic [...] Weight in lbs Pre/Post Dialysis Refused Weight 248.425020991886 BP Diastolic BP Location Tested BP Systolic BP Type 74 L arm 118 sitting Fetus Heart Rate Present A 140 Fetus Movement A Yes Comments Good movement. No ctx, LOF, VB. Will move induction from 03/15 to 03/16 due to staffing issues at [facility]. BPP 10/28 at [facility] Thursday, NST reactive today. Labor precautions reviewed. Menstrual History Last Menstrual Date Menses Monthly On Bcp Conception Prior Menses Frequency Hcg Plus Date Menarche Onset Age 0306/03/2023 Genetic Screening And Infection History Question Response Note Mental Retardation/Autism false Patient's Age Will Be 35 Years Or Older At Estim ated Date of Delivery false Thalassemia (Nepali, Kyrgyz, Mediterranean, Or Background): MCV < 80 false Neural Tube Defect (Meningomyelocele, Spina Bifi da, Or Anencephaly) false Congenital Heart Defect false Down Syndrome false Ben-Sachs (eg, Pentecostal, Cajun, Welsh-Atkins) f alse Juve Disease false Sickle Cell Disease Or Trait () false Hemophilia Or Other Blood Disorders false Muscular Dystrophy false Cystic Fibrosis false Traverse's Chorea false Intellectual Disability/Autism false If Yes, [...]
--- OUTSIDE RECORDS SUMMARY | 2024-03-24 00:27 | XMS_ITS | Continuity of Care Document ---
Author Organization [facility] [place] Address [address] [place] [address] Assessment No assessment recorded. Plan of Treatment [...] observ ation record ed. RENO [address], [facility], [place], [address], 09/10/2023 10:53:56 09/08/19 24 09/08/2023 US, obste tric, nucha l trans lucen cy No observ ation record ed. [email or web address] [facility] [address], [place], [address], 09/08/2023 13:17:08 09/14/19 24 09/14/2023 US, obste tric, follo w-up No observ ation record ed. [email or web address] [facility] [address], [place], [address], 09/16/2023 14:33:23 06/24/20 24 09/14/2023 US, obste tric, trans abdom inal No observ ation record ed. [email or web address] [facility] [address] [facility] [[email or web address] [address], [place], [address], 09/15/2023 15:09:15 10/12/19 24 10/12/2023 US, obste tric No observ ation record ed. [email or web address] [facility] [address] [facility] [[email or web address] [address], [place], [address], 10/13/2023 16:44:42 11/09/19 24 11/09/2023 US, obste tric, follo w-up No observ ation record ed. [facility] [address] [facility] [[email or web address] [address], [place], [address], 11/10/2023 16:45:37 12/07/19 24 12/07/2023 imagi ng/di agnos tic resul t No observ ation record ed. [facility] [address] [facility] [[email or web address] [address], [place], [address], 12/11/2023 10:32:37 01/04/20 24 01/04/2024 imagi ng/di agnos tic resul t No observ ation record ed. [facility] [address] [facility] [[email or web address] [address], [place], [address], 01/07/2024 12:12:29 02/02/20 24 02/01/2024 US, obste tric, follo w-up No observ ation record ed. [facility] [address] [facility], [place], [address], 02/04/2024 10:30:16 02/10/20 24 02/10/2024 non-s tress test No observ ation record ed. [email or web address] [facility] [address], [place], [address], 02/10/2024 11:58:14 02/10/20 24 02/10/2024 US, obste tric, bioph ysica l profi le + non-s tress test No observ ation record ed. [email or web address] [facility] [address], [place], [address], 02/10/2024 12:45:48 02/10/20 24 02/10/2024 US, obste tric, bioph ysica l profi le + non-s tress test No observ ation record ed. [email or web address] [address], [place], [address], 02/10/2024 22:00:22 02/17/20 24 02/17/2024 US, obste tric, bioph ysica l profi le + non-s tress test No observ ation record ed. [email or web address] [facility] [address], [place], [address], 02/17/2024 13:14:35 02/17/20 24 02/17/2024 US, obste tric, bioph ysica l profi le + non-s tress test No observ ation record ed. [email or web address] [address], [place], [address], 02/19/2024 01:03:22 02/17/20 24 02/17/2024 non-s tress test No observ ation record ed. [email or web address] [facility] [address], [place], [address], 02/17/2024 18:46:39 02/17/20 non-s tress test No observ ation record ed. [email or web address] [facility] [address], [place], [address], 02/17/2024 18:48:46 02/24/20 24 02/24/2024 US, obste tric, bioph ysica l profi le + non-s tress test No observ ation record ed. [facility] [address], [place], [address], 02/24/2024 14:24:08 02/24/20 24 02/24/2024 US, obste tric, follo w-up No observ ation record ed. [facility] [address], [place], [address], 02/24/2024 14:24:20 02/24/20 24 02/24/2024 US, obste tric, bioph ysica l profi le + non-s tress test No observ ation record ed. [address], [facility], [place], [address], 02/25/2024 11:50:17 02/24/20 24 02/24/2024 non-s tress test No observ ation record ed. [email or web address] [facility] [address], [place], [address], 02/24/2024 12:00:12 03/01/20 24 02/29/2024 imagi ng/di agnos tic resul t No observ ation record ed. [facility] [address] [place] [address], [address], 03/01/2024 17:20:31 03/03/20 24 03/03/2024 US, obste tric, bioph ysica l profi le + non-s tress test No observ ation record ed. [email or web address] [facility] [address], [place], [address], 03/03/2024 12:20:34 12/12/03/03/2024 US, obste tric, bioph ysica l profi le + non-s tress test No observ ation record ed. [email or web address] [address], [place], [address], 03/03/2024 20:54:47 03/03/20 24 03/03/2024 non-s tress test No observ ation record ed. [facility] [address], [place], [address], 03/03/2024 14:58:50 03/08/20 24 03/07/2024 imagi ng/di agnos tic resul t No observ ation record ed. [facility] [address], [address], 03/09/2024 00:46:18 03/09/20 24 03/09/2024 non-s tress test No observ ation record ed. [email or web address] [facility] [address], [place], [address], 03/09/2024 11:26:46 03/14/20 24 03/14/2024 imagi ng/di agnos tic resul t No observ ation record ed. [facility] [address], [address], 03/14/2024 13:30:26 03/17/20 24 03/14/2024 US, obste tric, follo w-up No observ ation record ed. [email or web address] [facility] [address], [address], 03/20/2024 15:27:00 Result Notes None recorded. Problems Name Problem SNOMED Code Status Onset Date Resolution Date Notes Provider Name and Address Organization Details Recorded Time 36326391 Active 2023 Jennie shah MA - [facility] 4 12:13:08 Monosomy X 207783787 Active HR on NIPT, declined CVS/amnio centesis HEIDI COLON MD [address], [place], [address], [facility] 4 12:18:50 Monosomy X 642515823 Active HR on NIPT, declined CVS/amnio centesis HEIDI COLON MD [address], [place], [address], [facility] 4 12:18:50 Body mass index 40+ - severely obese 873518199 Active weekly testing @34wks Jillian shah, [facility] 4 15:45:52 Problem Notes None [...] Details Last Updated DateTime 4 162.56 cm 41.7 kg/m2 99.13 % 782987. 51246 g 122 mm[Hg] 76 mm[Hg] Maude Peterson [facility] 14:22:39 Social History Question Answer Notes LastModified by Organizat ion Details LastModified Time Tobacco Smoking Status Never Smoker Susana shah [facility] 2023 15:08:14 What Is Your [...] Or The Highest Degree You Have Received? [id number] Information not available 2023 Are There Any [...] Anxious, Or Unable To Sleep At Night)? [id number] Information not available 2023 Do You Use Any Illicit Or Recreational Drugs? No Information not available 2023 Do You Use Sunscreen Routinely? No Information not available 2023 Have You Used IV Drugs? No Information not available 2023 Sex: Unknown Functional Status Question Answer Note LastModified by Organizat ion Details LastModified Time Do you have difficulty walking or climbing stairs? No [email or web address] Information not available 01/06/2024 Are you able to walk? YESWOREST Information not available 2023 Are you able to care for yourself? Yes [email or web address] Information not available 01/06/2024 Do you have difficulty dressing or bathing? No [email or web address] Information not available 01/06/2024 What is your [...] Diagnosis/Indication Diagnosis SNOMED-CT Code Diagnosis ICD10 Code 693081 HEIDI COLON MD [facility] [address] [address] 12/09/2023 11:44:14 12/09/2023 12:19:50 Monosomy X 945657386 Q96.9 Gestation period, 25 weeks 24582632 Z3A.25 [id number] HEIDI COLON MD [facility] [address] [address] 01/06/2024 14:02:28 01/06/2024 14:43:21 Monosomy X 832621304 Q96.9 Maternal o besity complicating , childbirth and the puerperium, antepartum 1753884867 07 O99.212 Gestation period, 29 weeks 30878135 Z3A.29 Health Concerns Section Related Observation LastModified by Organization Detai ls LastModified Time None Recorded Concern Status LastModified by Organization Details LastModified Time None Recorded Payers Encounter Date Sequence Insurance Name Policy Number Policy Kraus Covered Member ID Kraus Member ID Guarantor Name 01/06/2024 1 [facility] (MEDICAID HMO) [id number] Loulou Chang [id number] Dudley Natarajan OBGyn Episode Ob Episode Information Episode Created Date Number of Fetuses Patient Bloodtype Patient rh Status Prepregnancy Weight lbs Domestic Partner Domestic Partner Phone Father Name Accounting Advisory Services Manager Status 09/08/19 24 1 O Positive 244.2 OPEN Fetus Data First Name Last Name Admitted to NICU Weight (g) Sex Living Outcome Pediatric Complications Fetus ID Race Codes Race Delivery Type [id number] Problems Problem Notes MFM: 09/13 with genetic couns elor & [facility] ultrasound, declined CVS10/11 @945 US & 11/08 945 US [facility] Problem Name Start Date End Date Resolution Snomed Code Not e Body mass index 40+ - severely obese 679272742 weekly testin g @34wks Monosomy X 596626494 HR on NIP T, declined CVS/amniocentesis Angus [...] Date Ultra Sound Latest Days Gestation 0 [email or web address] 09/08/2023 03/22/20 24 0 Pre-jerri Flowsheet Flowsheet [...] Weight in lbs Pre/Post Dialysis Refused Weight 237.550116562513 BP Diastolic BP Location Tested BP Systolic BP Type 66 100 Fetus Heart Rate Present A 165 Fetus Movement Comments Patient presents to [facility] care. Nausea improved, no bleeding or cramping. complicated by high risk NIPT for monosomy X. Referral sent to [facility]. Discussed amniocentesis for diagnostic testing. Discussed risks of monosomy X. NT/NB wnl today. Other OB labs wnl. RTC 4 weeks, will follow up [facility] referral. Flowsheet Date 10/07/2023 Lewis Score Blood Edema Fundus Height Fundus Units Glucose Ketones Leukocytes Nitrite Labor Signs Protein Cervic Dilation Cervic Effacement Cervic Station Type Weight in lbs Pre/Post Dialysis Refused Weight 236.015289433804 BP Diastolic BP Location Tested BP Systolic BP Type 72 116 Fetus Heart Rate Present A 160 Fetus Movement A No Comments Doing well, no movemen t yet. No cramping, bleeding or nausea. Saw [facility] for HR Monosomy X on NIPT, declined CVS/amnio. Has follow up visit with them on Thursday. Discussed anatomy US with [facility], otherwise normal care in 4 weeks. Flowsheet Date 11/10/2023 Lewis Score Blood Edema Fundus Height Fundus Units Glucose Ketones Leukocytes Nitrite Labor Signs Protein Cervic Dilation Cervic Effacement Cervic Station Type Weight in lbs Pre/Post Dialysis Refused Weight 237.055824057679 BP Diastolic BP Location Tested BP Systolic BP Type 61 108 Fetus Heart Rate Present A 145 Fetus Movement A Yes Comments Baby moving well. Had anatom y US with [facility] yesterday, incomplete but normal visualized anatomy. Repeat in 4 weeks with MFM. No cramping or bleeding. RTC 4 weeks. Flowsheet Date 12/09/2023 Lewis Score Blood Edema Fundus Height Fundus Units Glucose Ketones Leukocytes Nitrite Labor Signs Protein Cervic Dilation Cervic Effacement Cervic Station neg none trace Type Weight in lbs Pre/Post Dialysis Refused 238.264765849375 BP Diastolic BP Location Tested BP Systolic BP Type 75 L arm 111 sitting Fetus Heart Rate Present A 150 Fetus Movement A Yes Comments Pateint c/o of lower back pa in and lower pelvic pain. Discussed tylenol, ice/hot packs, and belly band. Good movement. Had repeat anatomy with MFM, all normal; EFW 90%, growth US scheduled for 4 weeks with [facility]. Discussed GCT and labs for next visit. RTC 3-4 weeks. Flowsheet Date 01/06/2024 Lewis Score Blood Edema Fundus Height Fundus Units Glucose Ketones Leukocytes Nitrite Labor Signs Protein Cervic Dilation Cervic Effacement Cervic Station neg none none trace Type Weight in lbs Pre/Post Dialysis Refused 243.932302709095 BP Diastolic BP Location Tested BP Systolic BP Type 76 L arm 122 sitting Fetus Heart Rate Present Fetus Movement A Yes Comments Good movement. No cram ping or bleeding. Repeat growth with MF, EFW 75%. Continue serial growth US per [facility]. GCT and labs today. Discussed tdap vaccine. Desires EIL on 03/15 as partner is going to basic training for the army. Discussed SP front end assistant, patient will make appointmetns with her to meet and discuss EIL. RTC 2 weeks. Flowsheet Date 01/20/2024 Lewis Score Blood Edema Fundus Height Fundus Units Glucose Ketones Leukocytes Nitrite Labor Signs Protein Cervic Dilation Cervic Effacement Cervic Station neg none none trace Type Weight in lbs Pre/Post Dialysis Refused Weight 246.114282193683 BP Diastolic BP Location Tested BP Systolic [...] Weight in lbs Pre/Post Dialysis Refused Weight 246.828447509694 BP Diastolic BP Location Tested BP Systolic BP Type 66 L arm 118 sitting Fetus Heart Rate Present Fetus Movement A Yes Comments Patient c/o of some nausea a nd Isom Reyes. No bleeding. Good movement. Had MFM [...] Weight in lbs Pre/Post Dialysis Refused Weight 249.852618009620 BP Diastolic BP Location Tested BP Systolic [...] Weight in lbs Pre/Post Dialysis Refused Weight 247.065476729243 BP Diastolic BP Location Tested BP Systolic BP Type 77 122 Fetus Heart Rate Present Fetus Movement Comments Flowsheet Date 02/17/2024 Lewis Score Blood Edema Fundus Height Fundus Units Glucose Ketones Leukocytes Nitrite Labor Signs Protein Cervic Dilation Cervic Effacement Cervic Station none Type Weight in lbs Pre/Post Dialysis Refused Weight 247.332151647357 BP Diastolic BP Location Tested BP Systolic [...] Weight in lbs Pre/Post Dialysis Refused Weight 248.679659781474 BP Diastolic BP Location Tested BP Systolic [...] Type Weight in lbs Pre/Post Dialysis Refused 249.859715419256 BP Diastolic BP Location Tested BP Systolic BP Type 70 116 Fetus Heart Rate Present A 145 Fetus Movement A Yes Comments Doing well, good movem ent. No cramping or bleeding. BPP 12/30 yesterday. GBS negative. SVE 0.5cm. Labor precautions [...] Weight in lbs Pre/Post Dialysis Refused Weight 248.678805382288 BP Diastolic BP Location Tested BP Systolic BP Type 74 L arm 118 sitting Fetus Heart Rate Present A 140 Fetus Movement A Yes Comments Good movement. No ctx, LOF, VB. Will move induction from 03/15 to 03/16 due to staffing issues at [place]. BPP 10/28 at [facility] Thursday, NST reactive today. Labor precautions reviewed. Menstrual History Last Menstrual Date Menses Monthly On Bcp Conception Prior Menses Frequency Hcg Plus Date Menarche Onset Age 0306/03/2023 Genetic Screening And Infection History Question Response Note Mental Retardation/Autism false Patient's Age Will Be 35 Years Or Older At Estim ated Date of Delivery false Thalassemia (Kosovan, Cameroonian, Mediterranean, Or Background): MCV < 80 false Neural Tube Defect (Meningomyelocele, Spina Bifi da, Or Anencephaly) false Congenital Heart Defect false Down Syndrome false Ben-Sachs (eg, Adventism, Cajun, Luxembourgish-[place]atoosa) f alse Juve Disease false Sickle Cell Disease Or Trait () false Hemophilia Or Other Blood Disorders false Muscular Dystrophy false Cystic Fibrosis false Mentcle's Chorea false Intellectual Disability/Autism false If Yes, [...]
--- OUTSIDE RECORDS SUMMARY | 2024-03-24 00:27 | XMS_ITS | Continuity of Care Document ---
Author Organization [facility] [place] Address [address] [place] [address] Assessment No assessment recorded. Plan of Treatment Reminders Order Date Submit Date Provider Last Modified By Organization Details Last Modified Time Details Appointments SURG POST OP 2024 10:45A [place] COLON MD Not available Not available Not available Lab None recorded. Referral None recorded. Procedures None recorded. Surgeries None recorded. Imaging None recorded. Medication Orders ferrous sulfate 325 mg (65 mg iron) tablet,de layed release 2023 [id number], [address], [place], [phone], 01/20/2024 12:04:54 Gummies 400 mcg-35 mg-25 mg-5 mg chewable tablet 2023 [facility][id number], [address], [place], [id number], 01/20/2024 12:04:44 Patient TargetsNo targets recorded. Patient InstructionsNo instructions recorded. Reason for Referral None Reported. Results Created Date Observation Date Name Description Value Unit Range Abnormal Flag Note LastModifiedBy Organization Detail LastModifiedTime 09/08/1909/08/2023 US, obste tric, nucha l trans lucen cy No observ ation record ed. [facility] [address], [place], [address], 09/10/2023 10:53:56 09/08/1909/08/2023 US, obste tric, nucha l trans lucen cy No observ ation record ed. [email or web address] [place] [address], [place], [address], 09/08/2023 13:17:08 09/14/19 24 09/14/2023 US, obste tric, follo w-up No observ ation record ed. [facility] [address] [facility], [place], [address], 09/16/2023 14:33:23 09/14/19 24 09/14/2023 US, obste tric, trans abdom inal No observ ation record ed. [place] [address] [facility] [address], [place], [address], 09/15/2023 15:09:15 10/12/19 24 10/12/2023 US, obste tric No observ ation record ed. [place] [address] [facility] [address], [place], [address], 10/13/2023 16:44:42 11/09/19 24 11/09/2023 US, obste tric, follo w-up No observ ation record ed. [email or web address] [facility] [address], [place], [address], 11/10/2023 16:45:37 12/07/19 24 12/07/2023 imagi ng/di agnos tic resul t No observ ation record ed. [facility] [address], [place], [address], 12/11/2023 10:32:37 01/04/20 24 01/04/2024 imagi ng/di agnos tic resul t No observ ation record ed. [facility] [address], [place], [address], 01/07/2024 12:12:29 02/02/20 24 02/01/2024 US, obste tric, follo w-up No observ ation record ed. [email or web address] [facility] [address] , [place], [address], 02/04/2024 10:30:16 02/10/20 24 02/10/2024 non-s tress test No observ ation record ed. [email or web address] [place] [address], [place], [address], 02/10/2024 11:58:14 02/10/20 24 02/10/2024 US, obste tric, bioph ysica l profi le + non-s tress test No observ ation record ed. [email or web address] [place] [address], [place], [address], 02/10/2024 12:45:48 02/10/20 24 02/10/2024 US, obste tric, bioph ysica l profi le + non-s tress test No observ ation record ed. [email or web address] [address], [place], [address], 02/10/2024 22:00:22 02/17/20 24 02/17/2024 US, obste tric, bioph ysica l profi le + non-s tress test No observ ation record ed. [email or web address] [place] [address], [place], [address], 02/17/2024 13:14:35 02/17/20 24 02/17/2024 US, obste tric, bioph ysica l profi le + non-s tress test No observ ation record ed. [email or web address] [address], [place], [address], 02/19/2024 01:03:22 02/17/20 24 02/17/2024 non-s tress test No observ ation record ed. [email or web address] [place] [address], [place], [address], 02/17/2024 18:46:39 02/17/20 non-s tress test No observ ation record ed. [email or web address] [place] [address], [place], [address], 02/17/2024 18:48:46 02/24/2002/24/2024 US, obste tric, bioph ysica l profi le + non-s tress test No observ ation record ed. [facility] [address], [place], [address], 02/24/2024 14:24:08 02/24/20 24 02/24/2024 US, obste tric, follo w-up No observ ation record ed. [facility] [address], [place], [address], 02/24/2024 14:24:20 02/24/20 24 02/24/2024 US, obstnelly tric, bioph ysica l profi le + non-s tress test No observ ation record ed. [email or web address] [address] [facility], [place], [address], 02/25/2024 11:50:17 02/24/20 24 02/24/2024 non-s tress test No observ ation record ed. [email or web address] [place] [address], [place], [address], 02/24/2024 12:00:12 03/01/20 24 02/29/2024 imagi ng/di agnos tic resul t No observ ation record ed. [facility] [place] [address] [place], [address], 03/01/2024 17:20:31 03/03/20 24 03/03/2024 US, obste tric, bioph ysica l profi le + non-s tress test No observ ation record ed. [email or web address] [place] [address], [place], [address], 03/03/2024 12:20:34 03/03/20 24 03/03/2024 US, obste tric, bioph ysica l profi le + non-s tress test No observ ation record ed. [email or web address] [address], [place], [address], 03/03/2024 20:54:47 03/03/20 24 03/03/2024 non-s tress test No observ ation record ed. [email or web address] [place] [address], [place], [address], 03/03/2024 14:58:50 03/08/20 24 03/07/2024 imagi ng/di agnos tic resul t No observ ation record ed. [facility] [address], [address], 03/09/2024 00:46:18 03/09/20 24 03/09/2024 non-s tress test No observ ation record ed. [place] [address], [place], [address], 03/09/2024 11:26:46 03/14/20 24 03/14/2024 imagi ng/di agnos tic resul t No observ ation record ed. [facility] [address], [address], 03/14/2024 13:30:26 03/17/20 24 03/14/2024 US, obste tric, follo w-up No observ ation record ed. [facility] [address] [place], [address], 03/20/2024 15:27:00 Result Notes None recorded. Problems Name Problem SNOMED Code Status Onset Date Resolution Date Notes Provider Name and Address Organization Details Recorded Time 17067915 Active [address] [facility] 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 4 12:18:50 Monosomy X 336737585 Active HR on NIPT, declined CVS/amnio centesis HEIDI COLON MD [address], [place], [address], [facility] 4 12:18:50 Body mass index 40+ - severely obese 819428842 Active weekly testing @34wks Jillian Mikel [facility] 4 15:45:52 Problem Notes None [...] 4 162.56 cm 42.2 kg/m2 99.2 % 508566. 72 g 110 mm[Hg] 74 mm[Hg] Maude Peterson [facility] 11:19:14 Social History Question Answer Notes LastModified by Organizat ion Details LastModified Time Tobacco Smoking Status Never Smoker Susana Dove null, [facility] 2023 15:08:14 What Is Your Level [...] Or The Highest Degree You Have Received? [id number] Information not available 2023 Are There Any [...] Anxious, Or Unable To Sleep At Night)? [id number] Information not available 2023 Do You Use Any Illicit Or Recreational Drugs? No Information not available 2023 Do You Use Sunscreen Routinely? No Information not available 2023 Have You Used IV Drugs? No Information not available 2023 Sex: Unknown Functional Status Question Answer Note LastModified by Organizat ion Details LastModified Time Do you have difficulty walking or climbing stairs? No [email or web address] Information not available 01/06/2024 Are you able to walk? YESWOREST Information not available 2023 Are you able to care for yourself? Yes [email or web address] Information not available 01/06/2024 Do you have difficulty dressing or bathing? No [email or web address] Information not available 01/06/2024 What is your [...] Diagnosis/Indication Diagnosis SNOMED-CT Code Diagnosis ICD10 Code 208535 HEIDI COLON MD [place] [address] [address] 01/06/2024 14:02:28 01/06/2024 14:43:21 Monosomy X 739140437 Q96.9 Maternal o besity complicating , childbirth and the puerperium, antepartum 1221986618 07 O99.212 Gestation period, 29 weeks 79834890 Z3A.29 [id number] HEIDI COLON MD [place] [address],[facility] [place] [address] 01/20/2024 11:06:31 01/20/2024 12:07:38 Anemia of 03730614 O99.019 Maternal o besity complicating , childbirth and the puerperium, antepartum 6975534784 07 O99.212 Gestation period, 31 weeks 85525151 Z3A.31 Health Concerns Section Related Observation LastModified by Organization Detai ls LastModified Time None Recorded Concern Status LastModified by Organization Details LastModified Time None Recorded Payers Encounter Date Sequence Insurance Name Policy Number Policy Kraus Covered Member ID Kraus Member ID Guarantor Name 01/20/2024 1 [facility] (MEDICAID HMO) [id number] Loulou Chang [id number] Dudley Natarajan OBGyn Episode Ob Episode Information Episode Created Date Number of Fetuses Patient Bloodtype Patient rh Status Prepregnancy Weight lbs Domestic Partner Domestic Partner Phone Father Name Tax Accountant Status 09/08/19 24 1 O Positive 244.2 OPEN Fetus Data First Name Last Name Admitted to NICU Weight (g) Sex Living Outcome Pediatric Complications Fetus ID Race Codes Race Delivery Type 15453 Problems Problem Notes MFM: 09/13 with genetic couns elor & CRAB FISHERMAN ultrasound, declined CVS10/11 @945 US & 11/08 945 US [facility] Problem Name Start Date End Date Resolution Snomed Code Not e Body mass index 40+ - severely obese 119902033 weekly testin g @34wks Monosomy X 579889471 HR on NIP T, declined CVS/amniocentesis Angus [...] Date Ultra Sound Latest Days Gestation 0 [email or web address] 09/08/2023 03/22/20 24 0 Pre- Flowsheet Flowsheet [...] Weight in lbs Pre/Post Dialysis Refused Weight 237.032300029449 BP Diastolic BP Location Tested BP Systolic BP Type 66 100 Fetus Heart Rate Present A 165 Fetus Movement Comments Patient presents to [facility] care. Nausea improved, no bleeding or cramping. complicated by high risk NIPT for monosomy X. Referral sent to [facility]. Discussed amniocentesis for diagnostic testing. Discussed risks of monosomy X. NT/NB wnl today. Other OB labs wnl. RTC 4 weeks, will follow up [facility] referral. Flowsheet Date 10/07/2023 Lewis Score Blood Edema Fundus Height Fundus Units Glucose Ketones Leukocytes Nitrite Labor Signs Protein Cervic Dilation Cervic Effacement Cervic Station Type Weight in lbs Pre/Post Dialysis Refused Weight 236.761157213589 BP Diastolic BP Location Tested BP Systolic BP Type 72 116 Fetus Heart Rate Present A 160 Fetus Movement A No Comments Doing well, no movemen t yet. No cramping, bleeding or nausea. Saw MFM for HR Monosomy X on NIPT, declined CVS/amnio. Has follow up visit with them on Thursday. Discussed anatomy US with [facility], otherwise normal care in 4 weeks. Flowsheet Date 11/10/2023 Lewis Score Blood Edema Fundus Height Fundus Units Glucose Ketones Leukocytes Nitrite Labor Signs Protein Cervic Dilation Cervic Effacement Cervic Station Type Weight in lbs Pre/Post Dialysis Refused Weight 237.533206547241 BP Diastolic BP Location Tested BP Systolic BP Type 61 108 Fetus Heart Rate Present A 145 Fetus Movement A Yes Comments Baby moving well. Had anatom y US with [facility] yesterday, incomplete but normal visualized anatomy. Repeat in 4 weeks with [facility]. No cramping or bleeding. RTC 4 weeks. Flowsheet Date 12/09/2023 Lewis Score Blood Edema Fundus Height Fundus Units Glucose Ketones Leukocytes Nitrite Labor Signs Protein Cervic Dilation Cervic Effacement Cervic Station neg none trace Type Weight in lbs Pre/Post Dialysis Refused 238.321622743419 BP Diastolic BP Location Tested BP Systolic BP Type 75 L arm 111 sitting Fetus Heart Rate Present A 150 Fetus Movement A Yes Comments Pateint c/o of lower back pa in and lower pelvic pain. Discussed tylenol, ice/hot packs, and belly band. Good movement. Had repeat anatomy with [facility], all normal; EFW 90%, growth US scheduled for 4 weeks with [facility]. Discussed GCT and labs for next visit. RTC 3-4 weeks. Flowsheet Date 01/06/2024 Lewis Score Blood Edema Fundus Height Fundus Units Glucose Ketones Leukocytes Nitrite Labor Signs Protein Cervic Dilation Cervic Effacement Cervic Station neg none none trace Type Weight in lbs Pre/Post Dialysis Refused 243.103303455759 BP Diastolic BP Location Tested BP Systolic BP Type 76 L arm 122 sitting Fetus Heart Rate Present Fetus Movement A Yes Comments Good movement. No cram ping or bleeding. Repeat growth with MFM, EFW 75%. Continue serial growth US per [facility]. GCT and labs today. Discussed tdap vaccine. Desires EIL on 03/15 as partner is going to basic training for the [employer]. Discussed SP library circulation assistant, patient will make appointmetns with her to meet and discuss EIL. RTC 2 weeks. Flowsheet Date 01/20/2024 Lewis Score Blood Edema Fundus Height Fundus Units Glucose Ketones Leukocytes Nitrite Labor Signs Protein Cervic Dilation Cervic Effacement Cervic Station neg none none trace Type Weight in lbs Pre/Post Dialysis Refused Weight 246.240191552405 BP Diastolic BP Location Tested BP Systolic [...] Weight in lbs Pre/Post Dialysis Refused Weight 246.807400440493 BP Diastolic BP Location Tested BP Systolic BP Type 66 L arm 118 sitting Fetus Heart Rate Present Fetus Movement A Yes Comments Patient c/o of some nausea a nd [place]. No bleeding. Good movement. Had MFM [...] Weight in lbs Pre/Post Dialysis Refused Weight 249.179600984662 BP Diastolic BP Location Tested BP Systolic [...] Weight in lbs Pre/Post Dialysis Refused Weight 247.190114912913 BP Diastolic BP Location Tested BP Systolic BP Type 77 122 Fetus Heart Rate Present Fetus Movement Comments Flowsheet Date 02/17/2024 Lewis Score Blood Edema Fundus Height Fundus Units Glucose Ketones Leukocytes Nitrite Labor Signs Protein Cervic Dilation Cervic Effacement Cervic Station none Type Weight in lbs Pre/Post Dialysis Refused Weight 247.712936431284 BP Diastolic BP Location Tested BP Systolic [...] Weight in lbs Pre/Post Dialysis Refused Weight 248.606977208035 BP Diastolic BP Location Tested BP Systolic [...] Type Weight in lbs Pre/Post Dialysis Refused 249.621069730698 BP Diastolic BP Location Tested BP Systolic [...] Weight in lbs Pre/Post Dialysis Refused Weight 248.905840464440 BP Diastolic BP Location Tested BP Systolic BP Type 74 L arm 118 sitting Fetus Heart Rate Present A 140 Fetus Movement A Yes Comments Good movement. No ctx, LOF, VB. Will move induction from 03/15 to 03/16 due to staffing issues at [facility]. BPP 10/28 at [facility] Thursday, NST reactive today. Labor precautions reviewed. Menstrual History Last Menstrual Date Menses Monthly On Bcp Conception Prior Menses Frequency Hcg Plus Date Menarche Onset Age 0306/03/2023 Genetic Screening And Infection History Question Response Note Mental Retardation/Autism false Patient's Age Will Be 35 Years Or Older At Estim ated Date of Delivery false Thalassemia (Citizen Of [place], Wolof, Mediterranean, Or Background): MCV < 80 false Neural Tube Defect (Meningomyelocele, Spina Bifi da, Or Anencephaly) false Congenital Heart Defect false Down Syndrome false Ben-Sachs (eg, Catholic, Cajun, Iranian-Dougherty) f alse Juve Disease false Sickle Cell Disease Or Trait () false Hemophilia Or Other Blood Disorders false Muscular Dystrophy false Cystic Fibrosis false Brooke's Chorea false Intellectual Disability/Autism false If Yes, [...]
--- OUTSIDE RECORDS SUMMARY | 2024-03-24 00:27 | XMS_ITS | Encounter Summary ---
Author Organization [facility] Address [address] [place] [address] Care Team Providers Care Escapement Matcher Name Role Phone Madeline Davis MD Primary Care Provider [phone] Reason for Visit * Reason Onset Date Comments Appointment 02/02/2024 Encounter Details Date Type Department Care Team (Late st Contact Info) Description 02/02/2024 Telephone [facility] [address] [place] [address] Rhea Florian Appointment Social History Tobacco Use Types Packs/Day Years Used Date Smoking Tobacco: Passive Smo ke Exposure - Never Smoker Smokeless Tobacco: Never Estimated Date of Delivery Comme nts Yes 03/22/2024 Based on Ultraso und Sex and Gender Information Value Date Recorded Sex Assigned at Not on file Gender Identity Not on file Sexual Orientation Not on file documented as of this encounter Miscellaneous Notes * Telephone Encounter - Rhea Florian - 02/02/2024 8:35 AM CST Called the patient to schedule her 4wk Growth US, no answer left a voicemail. RVISOR OF OPERATIONS documented in this encounter Plan of Treatment Not on file documented as of this encounter Visit Diagnoses Not on filedocumented in this encounter Care Teams Escapement Matcher Relationship Specialty Start Date End Date Madeline Davis MD [address] [place] [address] [address] [place] [address] PCP - General Family Medicine 07/31/18 documented as of this encounter
--- OUTSIDE RECORDS SUMMARY | 2024-03-24 00:28 | XMS_ITS | Encounter Summary ---
Author Organization [facility] Address [address] [place] [address] Care Team Providers Care Center Receptionist Name Role Phone Madeline Davis MD Primary Care Provider [phone] Reason for Referral * (Routine) - Open Specialty Diagnoses / Procedures Referred By Josemanuel silver Referred To Contact Diagnoses Abnormal chromosomal and genetic finding on screening of mother Encounter for follow-up ultrasound of anatomy (HCC) Procedures SONOGRAM - COMPLETE Manuel Morris MD [address] [address] Referral ID Status Reason Start Date Expiration Date Visits Re quested Visits Authorized [id number] Open 12/04/2023 12/03/2024 1 1 * (Routine) - Open Specialty Diagnoses / Procedures Referred By Josemanuel silver Referred To Contact Diagnoses Abnormal chromosomal and genetic finding on screening of mother Encounter for follow-up ultrasound of anatomy (HCC) Procedures SONOGRAM - COMPLETE Manuel Morris MD [address] [place] [address] Referral ID Status Reason Start Date Expiration Date Visits Re quested Visits Authorized [id number] Open 12/04/2023 12/03/2024 1 1 Reason for Visit * Reason Comments Ultrasound Encounter Details Date Type Department Care Team (Late st Contact Info) Description 12/07/2023 10:18 AM CDT - 12/07/2023 11:59 PM CDT Hospital Encounter [facility] MATERNAL/ EVALUATION UNIT 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 - [place] ?Maternal and Care Center ?PHONE: ??FAX: Pat. Name: ?LOULOU CHANG. No: ?[id number] Study Date: ?? 12/07/2023 ??10:49am , Age: ? 2005, 18 Pregnancies: ?? 1, Para 0 Height: ? 64 in Weight: ? 244 lb LMP: ?Unknown GA by Base: ?? 24w6d ?? ANGUS: 03/22/2024 GA by US: ? 25w5d ?? ANGUS: 03/16/2024 GA Selected: ??24w6d (From [facility]) ANGUS: ?03/22/2024 Referring MD: Mike Archer MD Mold Blower: ??Mimi Madison, FINN CPT4: ? [address] BMI: ?41.88 Hist/Ind: ? Incomplete anatomy screen ?[place]ishers: High risk Monosomy X (6:10)-s/p genetic counseling (09/14/23-declined gnetic testing opted for cord blood sampling) ?Declined CVS & amniocentesis ?MIKE's brother born with cleft lip and palate ?Asthma MEASUREMENTS & AGE ? GROWTH EVALUATION Measurement ??GA ? Range ? Srce %for GA Ratios ----- ---- ------- BPD ??6.3 cm 25w3d (10m5u-61i8s) Hadl BPD 64% FL/BPD 0.79 (0.71 - 0.87) HC ??23.7 cm 25w5d (97h7z-03t9c) Hadl HC ??62% FL/AC ??0.23 (0.20 - 0.24) AC ??21.4 cm 25w6d (81i5s-88s1f) Hadl AC ??72% HC/AC ??1.11 (1.02 - 1.21) FL ?? 5.0 cm 26w5d (83a3h-45m5g) Hadl FL ??87% CI ? 0.74 (0.70 - 0.86) HL ?? 4.7 cm 27w5d (21h5s-61j1a) Mian HL ??>95 GA for sonogram 25w5d (86t0r-26a4o) ?? Weight Estimate: based on (BPD,HC,AC,FL) Hadlock ?Weight: 897 gm (766-1028gm) Hadlo ? : 1lbs, 15oz ? Normal: 769 gm (577-961gm) Hadloc ? Wt% ? 90% for 24w6d Heart Rate: 157 bpm Amniotic Fluid Index: 06.2cm (Deepest Pocket) EVAL, PLACENTA Presentation: cephalic Placenta: anterior Heart Rate: 157 bpm Amniotic Fluid Volume: normal Anatomy!Normal!Abnormal!Suboptimal!Prev. Seen!Comments Cranium ?! ?? x ??! ?! ?! ? x ?! Mdl (CSP/Thal! ?! ?! ?! ? x ?! Ventricles ?? ! ?? x ??! ?! ?! ? x ?! Choroid Plexu! ?! ?! ?! ? x ?! Cerebellum ?? ! ?? x ??! ?! ?! ? x ?! Cisterna M. ??! ?? x ??! ?! ?! ? x ?! Nuchal Fold ??! ?! ?! ?! ? x ?! Orbits ? ! ?? x ??! ?! ?! ?! Profile ?! ?! ?! ?! ? x ?! Nasal Bone ?? ! ?! ?! ?! ? x ?! Lip ?! ?! ?! ?! ? x ?! Spine ?! ?? x ??! ?! ?! ?! Lungs ?! ?! ?! ?! ? x ?! 4 Chamber Hea! ?? x ??! ?! ?! ?! LVOT ? ! ?? x ??! ?! ?! ? x ?! RVOT ? ! ?? x ??! ?! ?! ? x ?! 3 Vessel View! ?? x ??! ?! ?! ?! 3 Vessel Trac! ?? x ??! ?! ?! ?! Cross-over ?? ! ?? x ??! ?! ?! ?! Ductal Arch ??! ?! ?! ?! ? x ?! Aortic Arch ??! ?? x ??! ?! ?! ?! Caval View ?? ! ?? x ??! ?! ?! ?! Situs ?! ?! ?! ?! ? x ?! Diaphragm ?! ?! ?! ?! ? x ?! Stomach ?! ?? x ??! ?! ?! ? x ?! Bowel ?! ?! ?! ?! ? x ?! Kidneys ?! ?? x ??! ?! ?! ? x ?! Bladder ?! ?? x ??! ?! ?! ? x ?! 3 Vessel Cord! ?! ?! ?! ? x ?! Cord In! ?! ?! ?! ? x ?! Upper Extremi! ?! ?! ?! ? x ?! Hands ?! ?! ?! ?! ? x ?! Lower Extremi! ?! ?! ?! ? x ?! Feet ? ! ?? x ??! ?! ?! ?! External Cherelle! ?! ?! ?! ? x ?! Placental Cor! ?! ?! ?! ? x ?! Maternal Adne! ?! ?! ?! ? x ?! CLINICAL SUMMARY A single fetus is seen in cephalic presentation. ??The measurements today are consistent with appropriate interval growth. ??The ANGUS is based on a prior ultrasound. ??The amniotic fluid volume is within normal limits. ??The anatomy survey was completed today. ??No major malformations have been detected, within the limitations of ultrasound examination. IMPRESSION: Single, live, intrauterine at 24w6d ?? size is within normal limits ?? Amniotic fluid volume: within normal limits ?? Completed anatomy survey, no major malformations have been detected RECOMMEND: Ultrasound every 4 weeks to assess growth, or as otherwise clinically indicated. Thank you for allowing us the opportunity to care for your patient. ?? 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
--- OUTSIDE RECORDS SUMMARY | 2024-03-24 00:28 | XMS_ITS | Encounter Summary ---
Author Organization [facility] Health Address [address] [place] [address] Care Team Providers Care Upper Leather Sorter Name Role Phone Madeline Davis MD Primary Care Provider [phone] Encounter Details Date Type Department Care Team (Latest Contact Info) Description 11/09/2023 Travel Social History Tobacco Use Types Packs/Day [...] on filedocumented in this encounter Care Teams Upper Leather Sorter Relationship Specialty Start Date End Date Madeline Davis MD [address] [place] [address] [address] [place] [address] PCP - General Family Medicine 07/31/18 documented as of this encounter
--- OUTSIDE RECORDS SUMMARY | 2024-03-24 00:28 | XMS_ITS | Encounter Summary ---
Author Organization [facility] Address [address] [place] [address]. [place], [place] [address] [place] [address] Care Team Providers Care Delinquency Prevention Officer Name Role Phone Madeline Davis MD Primary Care Provider [phone] Encounter Details Date Type Department Care Team (Latest Contact Info) Description 12/24/2019 Travel Social History Tobacco Use Types Packs/Day Years Used Date Smoking Tobacco: Never Smokeless Tobacco: Never Alcohol Use Standard Drinks/Week Comments No 0 (1 standard drink = 0.6 oz pur e alcohol) AUDIT-C Answer Date Recorded Frequency of Alcohol Consumption Never 10/29/2018 Average Number of Drinks Not on file 019 Frequency of Binge Drinking Not on file 11/2018 Comments No Sex and Gender Information Value Date Recorded Sex Assigned at Not on file Legal Sex Female 1:39 AM CDT Gender Identity Not on file Sexual Orientation Not on file COVID-19 Exposure Response Date Recorded In the last month, have you been in contact with someone who was confirmed or suspected to have Coronavirus / COVID-19? No / Unsure 12/24/2019 9:52 PM CDT documented as of this encounter Plan of Treatment Not on file documented as of this encounter Visit Diagnoses Not on filedocumented in this encounter Care Teams Delinquency Prevention Officer Relationship Specialty Start Date End Date Madeline Davis MD [address] [address] PCP - General FAMILY PRACTICE 10/29/18 10/28/22 documented as of this encounter
--- OUTSIDE RECORDS SUMMARY | 2024-03-24 00:28 | XMS_ITS | Encounter Summary ---
Author Organization [facility] Address [address] [place] [address]. [place], [place] [address] [place] [address] Care Team Providers Care Rn Social Services Name Role Phone Madeline Davis MD Primary Care Provider Reason for Visit * Reason Comments Insect Bite Encounter Details Date Type Department Care Team (Late st Contact Info) Description 11/03/2019 9:03 PM CDT - 11/03/2019 9:28 PM CDT Emergency [facility] [place] [address] Ted Mills MD [address] [place] [address]. [place] [id number] Insect Bite Discharge Disposition: Home or Self Care (Routine Discharge) Social History Tobacco Use Types Packs/Day Years [...] have Coronavirus / COVID-19? No / Unsure 11/03/2019 8:12 PM CDT documented as of this encounter Last Filed Vital Signs Vital Sign Reading Time Taken Comments Blood Pressure 139/78 11/03/2019 8:18 PM CDT Pulse 89 11/03/2019 8:18 PM CDT Temperature 36 ??C (96.8 ??F) 11/03/2019 8:18 PM CDT Respiratory Rate 18 11/03/2019 8:18 PM CDT Oxygen Saturation 97% 11/03/2019 8:18 PM CDT Inhaled Oxygen Concentration - - Weight 93.9 kg (207 lb) 11/03/2019 8:18 PM CDT Height 162.6 cm (5' 4) 11/03/2019 8:18 PM CDT Body Mass Index 35.53 11/03/2019 8:18 PM CDT Body Mass Index Percentile 98.74% 11/03/2019 8:1 8 PM CDT Growth Chart: [facility] (Girls, 2- 20 Years) documented in this encounter Discharge Instructions * Attachments The following attachments cannot be sent through Care Everywhere. * Bedbugs ([place]) documented in this encounter Medications at Time of Discharge albuterol sulfate HFA 108 (90 Base) MCG/ACT inhaler Inhale 2 puffs into the lungs every 4 (four) hours as needed for Wheezing or Shortness of breath. 1 each 08/28/2019 hydrocortisone 1 % ointment Apply topically 2 (two) times daily. 25 g 11/03/2019 prednisoLONE 15 MG/5ML syrup Take 20 mLs (60 mg total) by mouth daily for 7 days. 100 mL 11/03/2019 0 documented as of this encounter ED Notes * Ted Mills MD - 11/03/2019 9:13 PM CDT Chief Complaint Chief Complaint Patient presents with ??? Insect Bite History of Present Illness A 14-year-old female presents with bites over her lower extremity and on her upper thighs for the past 3 days. Mom reports that her and her indicates is been seen in ultrasound for the past few months. They were each had multiple bites but they have improved over the past few weeks without any intervention. She reports the patient developed itchiness and redness of her thighs and legs. Reports any fever, no vomiting, no diarrhea. Mom reports that she has changed that she feels well as the comforter. She also tried a new detergent without any issues Medical History ALLERGIES: No Known Allergies MEDICATIONS: Prior to Admission medications Medication Sig Start Date End Date Taking? Authorizing Provider hydrocortisone 1 % ointment Apply topically 2 (two) times daily. 11/03/19 Yes Ted Mills MD prednisoLONE 15 MG/5ML syrup Take 20 mLs (60 mg total) by mouth daily for 7 days. 11/03/19 11/10/19 Yes Ted Mills MD albuterol sulfate HFA 108 (90 Base) MCG/ACT inhaler Inhale 2 puffs into the lungs every 4 (four) hours as needed for Wheezing or Shortness of breath. 08/28/19 Cara Moran MD PAST MEDICAL HISTORY: Past Medical History: Diagnosis Date ??? Asthma PAST SURGICAL HISTORY: History reviewed. No pertinent surgical history. FAMILY HISTORY: No family history on file. SOCIAL HISTORY: Social History Tobacco Use ??? Smoking status: Never Smoker ??? Smokeless tobacco: Never Used Substance Use Topics ??? Alcohol use: No Frequency: Never ??? Drug use: No Review of Systems Review of Systems Constitutional: Negative for activity change and appetite change. HENT: Negative for ear discharge, ear pain, facial swelling and mouth sores. Eyes: Negative for pain. Respiratory: Negative for cough and shortness of breath. Cardiovascular: Negative for leg swelling. Gastrointestinal: Negative for constipation, diarrhea and nausea. Skin: Positive for rash. Physical Exam Filed Vitals: 11/03/19201611/03/192017 BP: (!) 139/78 Pulse: 82 89 Resp: 18 18 Temp: 96.8 ??F (36 ??C) 96.8 ??F (36 ??C) SpO2: 98% 97% Weight: 93.9 kg (207 lb) Height: 5' 4 (1.626 m) Physical Exam Constitutional: She appears well-developed. HENT: Head: Normocephalic. Right Ear: External ear normal. Left Ear: External ear normal. Nose: Nose normal. Mouth/Throat: Oropharynx is clear and moist. Eyes: Pupils are equal, round, and reactive to light. Conjunctivae are normal. Neck: Normal range of motion. Cardiovascular: Normal rate, regular rhythm, normal heart sounds and intact distal pulses. Pulmonary/Chest: Effort normal. Abdominal: Soft. Musculoskeletal: Normal range of motion. Neurological: She is alert. Skin: Skin is warm. Capillary refill takes less than 2 seconds. Rash (Leg with small erythematous lesions, upper thigh with redness noted) noted. Nursing note and vitals reviewed. Diagnostic Studies / Procedures ELECTROCARDIOGRAMS: No results found for this visit on 11/03/19. LABORATORY STUDIES: No results found for this visit on 11/03/19. IMAGING STUDIES No orders to display ED Course / Medical Decision Making MDM Clinical Impression Bedbug bite, initial encounter (Primary) Disposition: Discharge Ted Mills MD 11/03/192129 * Tia Stevens RN - 11/03/2019 8:15 PM CDT Per mom - she was laying in bed and has bites on her legs. Per mom - they are living in hotel. documented in this encounter Plan of Treatment Not on file documented as of this encounter Visit Diagnoses Diagnosis Bedbug bite, initial encounter- Primary documented in this encounter Care Teams Rn Social Services Relationship Specialty Start Date End Date Madeline Davis MD [facility] [address] [address] PCP - General FAMILY PRACTICE 10/29/18 10/28/22 documented as of this encounter
--- OUTSIDE RECORDS SUMMARY | 2024-03-24 00:28 | XMS_ITS | Encounter Summary ---
Author Organization [facility] Health Address [address] [facility] [place] [address] Care Team Providers Care Lean Coach Name Role Phone Madeline Davis MD Primary Care Provider [phone] Reason for Visit * Reason Onset Date Comments Scheduling 01/05/2024 Encounter Details Date Type Department Care Team (Late Contact Info) Description 01/05/2024 Telephone [facility] MATERNAL/ EVALUATION UNIT [address] [place] [address]. [address] [place] [address] Socorro Stokes Scheduling Social History Tobacco Use Types Packs/Day Years [...] encounter Miscellaneous Notes * Telephone Encounter - Socorro Stokes - 01/05/2024 9:38 AM CDT Contacted patient to schedule appointment with [facility]. (In basket) documented in this encounter Plan of Treatment Not on file documented as of this encounter Visit Diagnoses Not on filedocumented in this encounter Care Teams Lean Coach Relationship Specialty Start Date End Date Madeline Davis MD [address] [place] [address] [address] [place] [address] PCP - General Family Medicine 07/31/18 documented as of this encounter
--- OUTSIDE RECORDS SUMMARY | 2024-03-24 00:28 | XMS_ITS | Encounter Summary ---
Author Organization [facility] Address [address] [facility] [place] [place] [address] Care Team Providers Care Stratigrapher Name Role Phone Madeline Davis MD Primary Care Provider [phone] Reason for Referral * (Routine) - Open Specialty Diagnoses / Procedures Referred By Contac t Referred To Contact Diagnoses Encounter for anatomic survey (HCC) Abnormal chromosomal and genetic finding on screening of mother Procedures SONOGRAM - COMPLETE Unlisted, Ordering ProviderMD Referral ID Status Reason Start Date Expiration Date Visits Re quested Visits Authorized [id number] Open 11/03/2023 11/02/2024 1 1 * (Routine) - Open Specialty Diagnoses / Procedures Referred By Contac t Referred To Contact Diagnoses Encounter for anatomic survey (HCC) Abnormal chromosomal and genetic finding on screening of mother Procedures SONOGRAM - COMPLETE Unlisted, Ordering ProviderMD Referral ID Status Reason Start Date Expiration Date Visits Re quested Visits Authorized [id number] Open 11/03/2023 11/02/2024 1 1 Encounter Details Date Type Department Care Team (Latest Contact Info) Description 11/09/2023 9:39 AM CDT - 11/09/2023 11:59 PM CDT Hospital Encounter [facility] MATERNAL/ EVALUATION UNIT [address] [place] [address] [address] [place] [address] Manuel Morris MD [address] [place] [address] Saturnino Azar DO [address] [place] [address] MAMMALOGY TEACHER Discharge Disposition: Home or Self Care Social [...] Associated Diagnosis Comments SONOGRAM - COMPLETE Routine 11/09/2023 9 :49 AM CDT Encounter for anatomic survey (HCC) 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 - [place] [facility] ?PHONE: ??FAX: Pat. Name: ?MASOODORENRA Burris Pat. No: ?[id number] Study Date: ?? 11/09/2023 ??9:49am , Age: ? 2005, 18 Pregnancies: ?? 1, Para 0 Height: ? 64 in Weight: ? 244 lb LMP: ?Unknown GA by Base: ?? 20w6d ?? ANGUS: 03/22/2024 GA by US: ? 21w6d ?? ANGUS: 03/15/2024 GA Selected: ??20w6d (From [facility]) ANGUS: ?03/22/2024 Referring MD: Mike Archre MD Mental Health Associate: ??Nayana Jewell RDMS, RVT CPT4: ? [address] BMI: ?41.88 Hist/Ind: ? 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 GROWTH EVALUATION Measurement ??GA ? Range ? Srce %for GA Ratios ----- ---- ------- BPD ??5.4 cm 22w2d (68w8v-39y6z) Hadl BPD 92% FL/BPD 0.74 HC ??19.6 cm 21w5d (18o5f-96b1x) Hadl HC ??80% FL/AC ??0.24 AC ??16.3 cm 21w2d (99o4h-32s1b) Hadl AC ??61% HC/AC ??1.20 (1.06 - 1.24) FL ?? 4.0 cm 22w6d (80r6n-97y4m) Hadl FL ??93% CI ? 0.78 (0.70 - 0.86) HL ?? 3.6 cm 22w2d (71f9k-06h5g) Mian HL ??73% Cere 2.2 cm 20w4d (93f4y-73q6t) Hill Cere43% GA for sonogram 21w6d (36m4d-65r7e) ?? Weight Estimate: based on (BPD,HC,AC,FL) Hadlock ?Weight: 468 gm (400-537gm) Hadloc ? : 1lbs, 0oz ? Normal: 389 gm (292-487gm) Hadloc ? Wt% ? 94% for 20w6d Cervix: ??Approach: declined transvaginal Heart Rate: 144 bpm Amniotic Fluid Index: 03.9cm (Deepest Pocket) PROCEDURE, TECHNIQUE Technique: transabdominal EVAL, PLACENTA Presentation: cephalic Umbilical Cord: 3 Vessels Placenta: anterior Previa: no previa seen Heart Rate: 144 bpm Amniotic Fluid Volume: normal MATERNAL ANATOMY Right ??Desc: Appears normal Left ??Desc: Appears normal Anatomy!Normal!Abnormal!Suboptimal!Prev. Seen!Comments Cranium ?! ?? x ??! ?! ?! ?! Mdl (CSP/Thal! ?? x ??! ?! ?! ?! Ventricles ?? ! ?? x ??! ?! ?! ?! Choroid Plexu! ?? x ??! ?! ?! ?! Cerebellum ?? ! ?? x ??! ?! ?! ?! Cisterna M. ??! ?? x ??! ?! ?! ?! Nuchal Fold ??! ?? x ??! ?! ?! ?! Orbits ? ! ?! ?! ? x ?! ?! Profile ?! ?? x ??! ?! ?! ?! Nasal Bone ?? ! ?? x ??! ?! ?! ?! Lip ?! ?? x ??! ?! ?! ?! Spine ?! ?! ?! ? x ?! ?! Lungs ?! ?? x ??! ?! ?! ?! 4 Chamber Hea! ?! ?! ? x ?! ?! LVOT ? ! ?? x ??! ?! ?! ?! RVOT ? ! ?? x ??! ?! ?! ?! 3 Vessel View! ?! ?! ? x ?! ?! 3 Vessel Trac! ?! ?! ? x ?! ?! Cross-over ?? ! ?! ?! ? x ?! ?! Ductal Arch ??! ?? x ??! ?! ?! ?! Aortic Arch ??! ?! ?! ? x ?! ?! Caval View ?? ! ?! ?! ? x ?! ?! Situs ?! ?? x ??! ?! ?! ?! Diaphragm ?! ?? x ??! ?! ?! ?! Stomach ?! ?? x ??! ?! ?! ?! Bowel ?! ?? x ??! ?! ?! ?! Kidneys ?! ?? x ??! ?! ?! ?! Bladder ?! ?? x ??! ?! ?! ?! 3 Vessel Cord! ?? x ??! ?! ?! ?! Cord In! ?? x ??! ?! ?! ?! Upper Extremi! ?? x ??! ?! ?! ?! Hands ?! ?? x ??! ?! ?! ?! Lower Extremi! ?? x ??! ?! ?! ?! Feet ? ! ?! ?! ? x ?! ?! External Cherelle! ?? x ??! ?! ?! ?!Female Placental Cor! ?? x ??! ?! ?! ?! Maternal Adne! ?? x ??! ?! ?! ? x ?! CLINICAL SUMMARY Here today for anatomical survey. ??She had opted for NIPT which was high risk for monosomy X she is status post genetic counseling on 09/14/2023 and declined any additional pre jerri testing such as CVS or genetic amniocentesis and opted for cord blood sampling. A single fetus is seen in cephalic presentation. ??The measurements today are consistent with accelerated growth for the ANGUS provided. ??The ANGUS is based on a prior ultrasound. ??The amniotic fluid volume is within normal limits. ?? Normal appearing anterior placenta. ?? The anatomical survey showed no gross abnormalities however certain structures remains suboptimally visualized due to positioning. ??The lips and face appeared to be normal including palate no evidence of cleft lip or palate. IMPRESSION: Single, live, intrauterine at 20w6d ?? size is consistent with known ANGUS ?? Amniotic fluid volume: within normal limits ?? Declined transvaginal cervical length No major malformations were seen within the limitations of ultrasound. ??But structures remains suboptimally visualized due to the above noted limitation. Both ultrasound and screening/testing have their limitations in detecting all congenital anomalies and chromosomal abnormalities/inherited disorders or genetic syndromes. ?? RECOMMEND: To return in 4 weeks for completion of anatomical survey. As discussed in genetic counseling report dated 09/14/2023 recommend echo at 24 weeks due to high risk NIPT for monosomy X with increased risk for congenital heart defect Thank you for allowing us the opportunity to care for your patient. ?? 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 [address] [place] [address] PCP - General Family Medicine 07/31/18 documented as of this encounter
--- OUTSIDE RECORDS SUMMARY | 2024-03-24 00:28 | XMS_ITS | Encounter Summary ---
Author Organization [facility] Address [address] [place] [address]. [place], [place] [id number] [place] [id number] Care Team Providers Care Paper Pattern Folder Name Role Phone Madeline Davis MD Primary Care Provider [phone] Reason for Visit * Reason Comments Fall Leg Pain Encounter Details Date Type Department Care Team (Late st Contact Info) Description 12/24/2019 10:05 PM CDT - 12/24/2019 11:51 PM CDT Emergency [facility] [place] [address] Dean Garcia MD [facility] [place] [address] Fall; Leg Pain Discharge Disposition: Home or Self Care (Routine [...] Sign Reading Time Taken Comments Blood Pressure 152/54 12/24/2019 11:45 PM CDT Pulse 71 12/24/2019 11:45 PM CDT Temperature 36.1 ??C (96.9 ??F) 12/24/2019 9:52 PM CD T Respiratory Rate 18 12/24/2019 11:4 5 PM CDT Oxygen Saturation 99% 12/24/2019 11: 45 PM CDT Inhaled Oxygen Concentration - - Weight 94.3 kg (207 lb 14.3 oz) 12/24/2019 9:52 PM CDT Height 165.1 cm (5' 5) 12/24/2019 9:52 PM CDT Body Mass Index 34.6 12/24/2019 9:52 PM CDT Body Mass Index Percentile 98.35% 12/24/2019 9:5 2 PM CDT Growth Chart: [facility] (Girls, 2- 20 Years) documented in this encounter Discharge Instructions * Discharge Instructions* Dean Garcia MD - 12/24/2019 11:35 PM CDT Recommend taking it easy over the next couple of days, resuming normal activities slowly and carefully as pain level allows, and ibuprofen 30 mL (600 mg) every 6-8 hours as needed for pain in the knee or the back. Use of ice is particularly helpful during the first 24 hours for reduction of pain. * Attachments The following attachments cannot be sent through Care Everywhere. * Knee Pain Discharge Instructions (Bhutanese) documented in this encounter Medications at Time of Discharge albuterol sulfate HFA 108 (90 Base) MCG/ACT inhaler Inhale 2 puffs into the lungs every 4 (four) hours as needed for Wheezing or Shortness of breath. 1 each 08/28/2019 hydrocortisone 1 % ointment Apply topically 2 (two) times daily. 25 g 11/03/2019 ibuprofen (IBUPROFEN CHILDRENS) 100 MG/5ML suspension Take 30 mLs (600 mg total) by mouth every 8 (eight) hours as needed for Fever. 0 12/24/2019 documented as of this encounter ED Notes * Rika Lino RN - 12/24/2019 11:49 PM CDT Mother of patient verbalizes understanding pain intervention and follow up care. No questions or concerns at d/c. Rika Lino RN * Dean Garcia MD - 12/24/2019 10:57 PM CDT Chief Complaint Chief Complaint Patient presents with ??? Fall ??? Leg Pain History of Present Illness This 14-year-old patient presents for evaluation of right knee injury and pain. She slipped earliertoday inadvertently doing the splits and slamming her right knee onto the ground in the process.She is complaining of right knee pain, mostly patellar and subpatellar. No pain distal to the knee.She does have some shooting sensation of pain through the thigh. She has some right paraspinal pain. She last received medication for pain about 2 hours ago, 600 mg of ibuprofen. She presents for further evaluation of soft tissue injury versus possible fracture. History provided by: Patient and parent telephone solicitor used: No Medical History ALLERGIES: No Known Allergies MEDICATIONS: Prior to Admission medications Medication Sig Start Date End Date Taking? Authorizing Provider ibuprofen (IBUPROFEN CHILDRENS) 100 MG/5ML suspension Take 30 mLs (600 mg total) by mouth every 8 (eight) hours as needed for Fever. 12/24/19 Yes Dean Garcia MD albuterol sulfate HFA 108 (90 Base) MCG/ACT inhaler Inhale 2 puffs into the lungs every 4 (four) hours as needed for Wheezing or Shortness of breath. 08/28/19 Cara Moran MD hydrocortisone 1 % ointment Apply topically 2 (two) times daily. 11/03/19 Ted Mills MD PAST MEDICAL HISTORY: Past Medical History: Diagnosis Date ??? Asthma PAST SURGICAL HISTORY: No past surgical history on file. FAMILY HISTORY: No family history on file. SOCIAL HISTORY: Social History Tobacco Use ??? Smoking status: Never Smoker ??? Smokeless tobacco: Never Used Substance Use Topics ??? Alcohol use: No Frequency: Never ??? Drug use: No Review of Systems Review of Systems Constitutional: Negative. HENT: Negative. Respiratory: Negative. Gastrointestinal: Negative. Musculoskeletal: Positive for arthralgias, back pain, gait problem and myalgias. Skin: Negative. All other systems reviewed and are negative. Physical Exam Filed Vitals: 12/24/19 2152 12/24/19 2345 BP: (!) 145/76 (!) 152/54 Pulse: 87 71 Resp: 16 18 Temp: 96.9 ??F (36.1 ??C) TempSrc: Temporal SpO2: 98% 99% Weight: 94.3 kg (207 lb 14.3 oz) Height: 5' 5 (1.651 m) Physical Exam Constitutional: She appears well-developed and well-nourished. HENT: Head: Normocephalic and atraumatic. Eyes: Conjunctivae and EOM are normal. Neck: Normal range of motion. Neck supple. Cardiovascular: Normal rate, regular rhythm and normal heart sounds. No murmur heard. Pulmonary/Chest: Effort normal and breath sounds normal. No respiratory distress. She has no wheezes. Abdominal: Soft. She exhibits no distension. There is no tenderness. Musculoskeletal: She exhibits tenderness (Mild right paraspinal tenderness in the lumbar region. Nomidline tenderness.). Patient with generalized tenderness around the right patella. Possible subtle soft tissue tenderness around the right patella. Some tenderness over the distal quadriceps near the insertion. No obvious deformity. The lower extremity is neurovascularly intact with normal pulses, color, temperature, sensation, and capillary refill. Neurological: No cranial nerve deficit. Skin: Skin is warm and dry. Capillary refill takes less than 2 seconds. Psychiatric: She has a normal mood and affect. Diagnostic Studies / Procedures ELECTROCARDIOGRAMS: No results found for this visit on 12/24/19. LABORATORY STUDIES: No results found for this visit on 12/24/19. IMAGING STUDIES XR KNEE RT 2V Final Result by User, [email or web address] (12/24 2319) Examination: Right knee 2 views Exam date/time: 12/24/2019 11:12 PM Reason For Exam: fall, knee pain 14-year-old Patient ambulatory to ED with c/o right leg pain. Patient states she fell approximately 1730 this afternoon doing the splits. Patient reports pain noted above her right knee. Comparison: Three-view survey of the right knee 08/28/2019 Technique: AP and lateral views of the right knee were obtained. Findings: No evidence of acute fracture or dislocation with special attention to the patella. The knee joint is intact. All 3 joint spaces are maintained. There is no knee joint effusion. =====IMPRESSION:===== 1. No evidence of acute fracture or dislocation. Course / Medical Decision Making MDM Number of Diagnoses or Management Options Right knee injury, initial encounter: new and requires workup Diagnosis management comments: Patient with negative radiographs of the right knee. Specifically, normal-appearing patella. Findings are consistent with soft tissue injury and recommend continuation of ibuprofen as needed and reevaluation if symptoms are not improving over the next couple of days as expected. Amount and/or Complexity of Data Reviewed Tests in the radiology section of CPT??: ordered and reviewed Obtain history from someone other than the patient: yes Risk of Complications, Morbidity, and/or Mortality Presenting problems: low Diagnostic procedures: minimal Management options: low Patient Progress Patient progress: stable Clinical Impression Right knee injury, initial encounter (Primary) Disposition: Discharge Dean Garcia MD 12/25/19 0134 * Rika Lino RN - 12/24/2019 10:41 PM CDT Swelling above right knee. Pt states she was in parking lot and slipped on wet pavement. Her left leg when in front of her and right leg went behind her. Reports pain worse of above right knee. Also notes pain above left knee. Slight swelling noted above right knee. Ice pack applied. 12/24/19 1000 Skin Color/Condition Skin Color/Condition (WDL) X Skin Color Appropriate for ethnicity Skin Condition/Temp Swollen Mucous Membranes Intact;Moist * Avel Aguirre RN - 12/24/2019 9:54 PM CDT Patient ambulatory to ED with c/o right leg pain. Patient states she fell approximately 1730 this afternoon doing the splits. Patient reports pain noted above her right knee. documented in this encounter Plan of Treatment Not on file documented as of this encounter Procedures Procedure Name Priority Date/Time Associated Diagnosis Comments XR KNEE RT 2V STAT 12/24/2019 11:12 PM CDT documented in this encounter Results * XR KNEE RT 2V (12/24/2019 11:12 PM CDT) Anatomical Region Laterality Modality Knee Radiographic Penny ging 12/24/2019 11:1 6 PM CDT Impressions 12/24/2019 11:19 PM CDT =====IMPRESSION:===== 1. No evidence of acute fracture or dislocation. Narrative 12/24/2019 11:19 PM CDT Examination: Right knee 2 views Exam date/time: 12/24/2019 11:12 PM Reason For Exam: ??fall, knee pain ? 14-year-old Patient ambulatory to ED with c/o right leg pain. Patient states she fell approximately 1730 this afternoon doing the splits. Patient reports pain noted above her right knee. Comparison: Three-view survey of the right knee 08/28/2019 Technique: AP and lateral views of the right knee were obtained. Findings: No evidence of acute fracture or dislocation with special attention to the patella. The knee joint is intact. All 3 joint spaces are maintained. There is no knee joint effusion. Procedure Note Aparna Martinez MD - 12/24/2019 Examination: Right knee 2 views Exam date/time: 12/24/2019 11:12 PM Reason For Exam: fall, knee pain 14-year-old Patient ambulatory to ED with c/o right leg pain. Patient states she fell approximately 1730 this afternoon doing the splits.Patient reports pain noted above her right knee. Comparison: Three-view survey of the right knee 08/28/2019 Technique: AP and lateral views of the right knee were obtained. Findings: No evidence of acute fracture or dislocation with special attention to the patella. The knee joint is intact. All 3 joint spacesare maintained. There is no knee joint effusion. =====IMPRESSION:===== 1. No evidence of acute fracture or dislocation. us Dean Garcia MD GENERAL IMAGING Final R esult documented in this encounter Visit Diagnoses Diagnosis Right knee injury, initial encounter- Primary documented in this encounter Care Teams Paper Pattern Folder Relationship Specialty Start Date End Date Madeline Davis MD [address] [address] PCP - General FAMILY PRACTICE 10/29/18 10/28/22 documented as of this encounter
--- OUTSIDE RECORDS SUMMARY | 2024-03-24 00:28 | XMS_ITS | Encounter Summary ---
Author Organization [facility] / [facility] Address [address] [place] [address]. [place], [place] [id number] [place] [id number] Care Team Providers Care Boiler Out Name Role Phone None, Provider MD Primary Care Provider Unavaila ble Reason for Visit * Reason Comments Pleuritic Chest Pain Encounter Details Date Type Department Care Team (Late st Contact Info) Description 11/18/2023 4:34 PM CDT - 11/18/2023 6:36 PM CDT Emergency [facility] Emergency [place], [place] [id number] Rhianna Peres, COMMISSIONED FIRE OFFICER [address] [place] [id number] Pleuritic Chest Pain Discharge Disposition: Home or Self Care [...] Sign Reading Time Taken Comments Blood Pressure 127/68 11/18/2023 4:14 PM CDT Pulse 97 11/18/2023 4:14 PM CDT Temperature 36.7 ??C (98.1 ??F) 11/18/2023 4:14 PM CD T Respiratory Rate 16 11/18/2023 4:14 PM CDT Oxygen Saturation 100% 11/18/2023 4:14 PM CDT Inhaled Oxygen Concentration - - Weight 107.5 kg (237 lb) 11/18/2023 4:14 PM CDT Height 162.6 cm (5' 4) 11/18/2023 4:14 PM CDT Body Mass Index 40.68 11/18/2023 4:14 PM CDT documented in this encounter Discharge Instructions * Attachments The following attachments cannot be sent through Care Everywhere. * Chest Pain That Is Not Caused by the Heart Discharge Instructions (Canadian) * Hypokalemia (Canadian) documented in this encounter Medications at Time [...] as of this encounter ED Notes * Rhianna Peres NP - 11/18/2023 4:37 PM CDT ER/CC Encounter Chief Complaint Chief Complaint Patient presents with Pleuritic Chest Pain History of Present Illness Patient ambulatory to the emergency room with complaints of left anterior chest discomfort. Patientstates that she has been having left anterior chest discomfort for approximately 24 hours. Patient states that the air conditioning unit when out in her home and yesterday was in significant heat. Patient states that she believes that is why she is having pain. States that she is currently . Denies any shortness of breath or palpitations. States that pain only when taking deep inspiration. Denies any fever, nausea, vomiting, diarrhea. Denies any acute injury. Medical History ALLERGIES: Review of patient's allergies indicates: No Known Allergies MEDICATIONS: Prior to Admission medications Medication Sig Start Date End Date Taking? Authorizing Provider albuterol sulfate HFA 108 (90 Base) MCG/ACT inhaler Inhale 2 puffs into the lungs every 4 (four) hours as needed for Wheezing or Shortness of breath. 08/28/19 Cara Moran MD hydrocortisone 1 % ointment Apply topically 2 (two) times daily. 11/03/19 Ted Mills MD ibuprofen (IBUPROFEN CHILDRENS) 100 MG/5ML suspension Take 30 mLs (600 mg total) by mouth every 8 (eight) hours as needed for Fever. 12/24/19 Dean Garcia MD PAST MEDICAL HISTORY: Past Medical History: Diagnosis Date Asthma (HHS/HCC) PAST SURGICAL HISTORY: History reviewed. No pertinent surgical history. FAMILY HISTORY: No family history on file. SOCIAL HISTORY: Social History Tobacco Use Smoking status: Never Smokeless tobacco: Never Substance Use Topics Alcohol use: No Drug use: No Review of Systems Review of Systems Constitutional: Negative. HENT: Negative. Eyes: Negative. Respiratory: Negative. Cardiovascular: Positive for chest pain. Negative for palpitations and leg swelling. Gastrointestinal: Negative. Endocrine: Negative. Genitourinary: Negative. Musculoskeletal: Negative. Skin: Negative. Allergic/Immunologic: Negative. Neurological: Negative. Hematological: Negative. Psychiatric/Behavioral: Negative. Physical Exam Filed Vitals: 11/18/23 1614 BP: 127/68 Pulse: 97 Resp: 16 Temp: 98.1 ??F (36.7 ??C) TempSrc: Oral SpO2: 100% Weight: 107.5 kg (237 lb) Height: 1.626 m (5' 4) Physical Exam Vitals and nursing note reviewed. Constitutional: General: She is not in acute distress. Appearance: She is obese. She is not toxic-appearing. HENT: Head: Normocephalic and atraumatic. Right Ear: External ear normal. Left Ear: External ear normal. Nose: Nose normal. Mouth/Throat: Mouth: Mucous membranes are moist. Eyes: Extraocular Movements: Extraocular movements intact. Pupils: Pupils are equal, round, and reactive to light. Cardiovascular: Rate and Rhythm: Normal rate. Heart sounds: No murmur heard. Pulmonary: Effort: Pulmonary effort is normal. Breath sounds: Normal breath sounds. Abdominal: General: There is no distension. Palpations: Abdomen is soft. There is no mass. Musculoskeletal: General: No swelling or tenderness. Normal range of motion. Cervical back: Normal range of motion and neck supple. Skin: General: Skin is warm and dry. Capillary Refill: Capillary refill takes less than 2 seconds. Neurological: General: No focal deficit present. Mental Status: She is alert and oriented to person, place, and time. Psychiatric: Behavior: Behavior normal. Diagnostic Studies / Procedures ELECTROCARDIOGRAMS: Results for orders placed or performed during the hospital encounter of 11/18/[address] [facility] [address] Test Date: 2023-11-18 Pat Name: LOULOU CHANG Department: 41 Room: Gender: Female Solar Crew Member: [id number] : 2005 Requested By: RHIANNA PERES Order Number: [id number] Reading MD: Measurements Intervals [place] Rate: 100 P: 49 MD: 132 QRS: 37 QRSD: 84 T: 15 QT: 330 QTc: 427 Interpretive Statements SINUS TACHYCARDIA NONSPECIFIC T-WAVE ABNORMALITY ABNORMAL RHYTHM ECG No previous ECG available for comparison LABORATORY STUDIES: Results for orders placed or performed during the hospital encounter of 11/18/23 CBC W/DIFF AUTOMATED Result Value Ref Range WBC 10.02 4.5 - 13.0 x10'3/uL RBC 3.51 (L) 4.20 - 5.40 x10'6/uL HGB 10.1 (L) 12.0 - 16.0 G/DL HCT 30.5 (L) 38.0 - 48.0 % MCV 86.9 81.0 - 99.0 FL MCH 28.8 27.0 - 31.0 PG MCHC 33.1 32.0 - 36.0 G/DL RDW 12.9 11.5 - 14.5 % PLT 308 130 - 400 x10'3/uL MPV 9.7 9.3 - 12.2 FL DIFFERENTIAL TYPE AUTOMATED DIFFERENTIAL NEUTROPHILS % 75.8 % LYMPHOCYTES % 14.4 % MONOCYTES % 6.6 % EOSINOPHILS 1.9 % BASOPHILS 0.3 % IMMATURE GRANS % 1.0 % ABS. NEUTROPHILS 7.60 1.80 - 8.00 x10'3/uL ABS. LYMPHOCYTES 1.44 1.20 - 5.20 x10'3/uL ABS. MONOCYTES 0.66 0.24 - 0.86 x10'3/uL ABS. EOSINOPHILS 0.19 0.04 - 0.36 x10'3/uL ABS. BASOPHILS 0.03 0.01 - 0.08 x10'3/uL ABS. IMMATURE GRANULOCYTES 0.10 0.00 - 0.49 x10'3/uL COMPREHENSIVE METABOLIC PANEL Result Value Ref Range GLUCOSE 97 70 - 99 MG/DL BUN 6 (L) 7 - 18 MG/DL CREATININE S/P/B 0.48 (L) 0.55 - 1.02 MG/DL SODIUM S/P/B 140 136 - 145 MMOL/L POTASSIUM S/P/B 3.3 (L) 3.5 - 5.1 MMOL/L CHLORIDE S/P/B 110 97 - 115 MMOL/L CO2 22.4 21 - 32 MMOL/L CALCIUM S/P/B 8.9 8.5 - 10.1 MG/DL BILIRUBIN TOTAL S/P/B 0.3 0.2 - 1.1 MG/DL TOTAL PROTEIN S/P/B 6.5 6.4 - 8.2 G/DL ALBUMIN S/P/B 2.8 (L) 3.4 - 5.0 G/DL AST 15 15 - 37 U/L ALT 18 14 - 55 U/L ALKALINE PHOSPHATASE S/P/B 94 50 - 136 U/L ANION GAP 7.6 2 - 10 MMOL/L BUN CREATININE RATIO 12.5 6 - 26 A/G RATIO 0.8 (L) 1.0 - 2.0 RATIO GFR ESTIMATE >90 >90 ML/MIN/1.73 M2 TROPONIN, QUANT Result Value Ref Range TROPONIN I HIGH SENSITIVITY <3 <54 ng/L URINALYSIS Result Value Ref Range Specimen Type URINE CLEAN CATCH COLOR (U) YELLOW TRANSPARENCY TURBID SPECIFIC GRAVITY (U) 1.026 1.001 - 1.030 U PH 6.0 5.0 - 9.0 LEUKOCYTES (U) 75 (A) NEGATIVE NITRITES NEGATIVE NEGATIVE PROTEIN RANDOM (U) 20 <30 MG/DL GLUCOSE (U) NORMAL NORMAL MG/DL KETONES MG/DL (U) NEGATIVE NEGATIVE MG/DL UROBILINOGEN 2.0 (A) NORMAL MG/DL BILIRUBIN (U) NEGATIVE NEGATIVE MG/DL BLOOD (U) NEGATIVE NEGATIVE MUCUS RARE /LPF WBC/HPF 10 (H) <6 /HPF RBC/HPF 4 <6 /HPF SQUAMOUS EPITHELIALS MODERATE /HPF Quantitative HCG Result Value Ref Range HCG QUANTITATIVE 13,082 MIU/ML POCT urine Result Value Ref Range URINE HCG TEST POSITIVE (A) Internal Control: VALID CORONAVIRUS (COVID 19) Specimen: NASAL Result Value Ref Range CORONAVIRUS SARS COV 2 RNA NEGATIVE NEGATIVE Specimen Type NASAL IMAGING STUDIES No orders to display ED Course / Medical Decision Making MDM Number of Diagnoses or Management Options Diagnosis management comments: I have spoken to the patient about signs and symptoms. Patient awarethat I have recommended serum lab work and EKG. Patient comfortable with this plan has no questionsor concerns. Patient signs and symptoms consistent with a pleuritic chest pain. Patient is not tachycardic and oxygen saturations 100%, making pulmonary embolism unlikely. Patient also has no risk factors for ACSand is 18-year-old old. Patient is not hypertensive and has no concern for preeclampsia at this time. Patient does have mild hypokalemia. Patient's potassium replaced in the ER. Patient also has mild anemia with RBC 3.51, Hemoccult globin 10.1, hematocrit 30.5. Patient's urine reveals 75 leukocytes and 10 WBCs. Likely contaminant as patient has moderate amount of squamous epithelial. Patient's urine will be sent for culture. Patient states that she is feeling better after medications and IV fluids. Patient aware that likely signs and symptoms due to being in heat for most of the day yesterday. Patient will be discharged with chest wall pain and hypokalemia diagnosis. Encouraged to follow-up with [employer]TER [employer] without fail. Patient also aware that I have recommended returning to the emergency room if signs and symptoms return, has any palpitations, chest pain or shortness of breath. Amount and/or Complexity of Data Reviewed Clinical lab tests: reviewed Risk of Complications, Morbidity, and/or Mortality Presenting problems: moderate Diagnostic procedures: moderate Management options: low Patient Progress Patient progress: improved Medications potassium chloride CR (K-TAB) tablet 40 mEq (has no administration in time range) sodium chloride 0.9% bolus infusion 500 mL (0 mLs Intravenous Infusion Stop Time 11/18/23 174) acetaminophen (TYLENOL) tablet 650 mg (650 mg Oral Given 11/18/23 164) predniSONE (DELTASONE) tablet 20 mg (20 mg Oral Given 11/18/231646) Clinical Impression Chest wall pain (Primary) Hypokalemia Current Discharge Medication List Disposition: Discharge Follow-Up: No follow-up provider specified. 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 She denies any other complaints. Patient is currently 22 weeks , denies any OB complaints. documented in this encounter Plan of Treatment Not on file documented as of this encounter Procedures Procedure Name Priority Date/Time Associated Diagnosis Comments CORONAVIRUS (COVID 19) STAT 4:58 PM CDT HC URINALYSIS AUTO W/O MICRO STAT 11/18/2023 4:58 PM CDT URINE BACTERIA CULTURE STAT 4:58 PM CDT COMPREHENSIVE METABOLIC PANEL STAT 11/18/2023 4:58 PM CDT HCG QUANT (SERUM)-CHORIONIC GONADOTROPIN STAT 11/18/2023 4:58 PM CDT CBC W/DIFF AUTOMATED STAT 11/18/2023 4:58 PM CDT TROPONIN, QUANT STAT 11/18/2023 4:58 PM CDT POCT URINE (BACK OFFICE) STAT 11/18/2023 4:57 PM CDT ECG 12-LEAD Routine 11/18/2023 4:41 PM CDT documented in this encounter Results * CULTURE URINE (11/18/2023 4:58 PM CDT) SPEC DESCRIPTION URINE CLEAN CATCH 11/18/2023 6:10 PM CDT [facility] SPECIAL REQUESTS NO SPECIAL REQUEST 11/18/2023 6:10 PM CDT [facility] CULTURE RESULT NO GROWTH 2 DAYS 11/20/2023 7:42 AM CDT [facility] URINE SPECIMEN OBTAINED BY CLEAN CATCH PROCEDURE / Unknown 11/18/2023 4:58 PM CDT 11/18/2023 7:30 PM CDT Rhianna Peres NP MICROBIOLOGY - GENERAL ORDERAB LES Final Result [facility] [address] [id number], * CORONAVIRUS (COVID 19) (11/18/2023 4:58 PM CDT) CORONAVIRUS SARS COV 2 RNA NEGATIVE NEGATIVE 11/18/2023 5:46 PM CDT [facility] Comment: NEGATIVE RESULTS DO NOT RULE OUT COVID 19 AND SHOULD NOT BE USED THE SOLE BASIS FOR TREATMENT OR PATIENT MANAGEMENT DECISIONS, INCLUDING INFECTION CONTROL DECISIONS. NEGATIVE RESULTS SHOULD BE CONSIDERED IN THE CONTEXT OF A PATIENT'S RECENT EXPOSURES, HISTORY AND THE PRESENCE OF CLINICAL SIGNS AND SYMPTOMS CONSISTENT WITH COVID 19. THE ID NOW COVID-19 2.0 TEST HAS BEEN AUTHORIZED BY THE FDA UNDER EAU FOR USE BY AUTHORIZED LABORATORIES. PERFORMED BY NUCLEIC ACID AMPLIFICATION FOR MOLECULAR QUALITATIVE DETECTION OF SARS-COV-2. SPECIMEN TYPE NASAL 11/18/2023 4:48 PM CDT [facility] NASAL STRUCTURE / Unknown 11/18/2023 4:58 PM CDT Rhianna Peres COMMISSIONED FIRE OFFICER MICROBIOLOGY - GENERAL ORDERAB LES Final Result Performing Organization Address [facility]/ZIP Co de Phone Number [facility] [address] [place] [address], * Quantitative HCG (11/18/2023 4:58 PM CDT) Pathologist [facility] HCG QUANTITATIVE 13,082 MIU/ML 11/18/19 6:[address] [facility] Comment: WEEKS OF ? REFERENCE RANGES Non- female ?< or = 2 ? 0.2 - 1 ? 5 - 50 ? 1 - 2 ? 50 - 500 ? 2 - 3 ? 100 - 5000 ? 3 - 4 ? 500 - 10,000 ? 4 - 5 ? 1000 - 50,000 ? 5 - 6 ? 10,000 - 100,000 ? 6 - 8 ? 15,000 - 200,000 ? 2 - 3 MONTHS ?10,000 - 100,000 11/18/2023 4:58 PM CDT Rhianna Peres NP LABORATORY Final Result Performing Organization Address [facility] de Phone Number [facility] [address] [place] [address], [place] [phone] * (ABNORMAL) URINALYSIS (11/18/2023 4:58 PM CDT) SPECIMEN TYPE URINE CLEAN CATCH 11/18/2023 4:57 PM CDT [facility] COLOR (U) YELLOW 11/18/2023 5:33 PM CDT [facility] TRANSPARENCY TURBID 11/18/2023 5:33 PM CDT [facility] SPECIFIC GRAVITY (U) 1.026 1.001 - 1.030 11/18/2023 5:33 PM CDT [facility] U PH 6.0 5.0 - 9.0 11/18/2023 5:33 PM CDT [facility] LEUKOCYTES (U) 75(A) NEGATIVE 11/18/2023 5:33 PM CDT [facility] NITRITES NEGATIVE NEGATIVE 11/18/2023 5:33 PM CDT [facility] PROTEIN RANDOM (U) 20 <30 MG/DL 11/18/2023 5:33 PM CDT [facility] GLUCOSE (U) NORMAL NORMAL MG/DL 11/18/2023 5:33 PM CDT [facility] KETONES MG/DL (U) NEGATIVE NEGATIVE MG/DL 11/18/2023 5:33 PM CDT [facility] UROBILINOGEN 2.0(A) NORMAL MG/DL 11/18/2023 5:33 PM CDT [facility] BILIRUBIN (U) NEGATIVE NEGATIVE MG/DL 11/18/2023 5:33 PM CDT [facility] BLOOD (U) NEGATIVE NEGATIVE 11/18/2023 5:33 PM CDT [facility] MUCUS RARE /LPF 11/18/2023 5:33 PM CDT [facility] WBC/HPF 10(H) <6 /HPF 11/18/2023 5:33 PM CDT [facility] RBC/HPF 4 <6 /HPF 11/18/2023 5:33 PM CDT [facility] SQUAMOUS EPITHELIALS MODERATE /HPF 11/18/2023 5:33 PM CDT [facility] URINE SPECIMEN OBTAINED BY CLEAN CATCH PROCEDURE / Unknown 11/18/2023 4:58 PM CDT Rhianna Peres COMMISSIONED FIRE OFFICER URINE ORDERABLES Final Result Performing Organization Address City/[facility]/ZIP Co de Phone Number [facility] [address] [place] [address], [place] [phone] * TROPONIN, QUANT (11/18/2023 4:58 PM CDT) [facility] TROPONIN I HIGH SENSITIVITY <3 <54 ng/L 11/18/2023 5:49 PM CDT [facility] Comment: HIGH DOSES OF BIOTIN, TROPONIN-SPECIFIC AUTOANTIBODIES, AND ANTIBODY THERAPY CONTAINING HAMA MAY INTERFERE WITH THIS TEST RESULT. CORRELATION TO CLINICAL HISTORY AND PRESENTATION RECOMMENDED. 11/18/2023 4:58 PM CDT Rhianna Peres COMMISSIONED FIRE OFFICER LABORATORY Final Result Performing Organization Address City/[facility]/ZIP Co de Phone Number [facility] [address] [place] [address], [place] [phone] * (ABNORMAL) COMPREHENSIVE METABOLIC PANEL (11/18/2023 4:58 PM CDT) Pathologist [facility] GLUCOSE 97 70 - 99 MG/DL 11/18/2023 5:49 PM CDT [facility] BUN 6(L) 7 - 18 MG/DL 11/18/2023 5:49 PM CDT [facility] CREATININE S/P/B 0.48(L) 0.55 - 1.02 MG/DL 11/18/2023 5:49 PM CDT [facility] SODIUM S/P/B 140 136 - 145 MMOL/L 11/18/2023 5:49 PM CDT [facility] POTASSIUM S/P/B 3.3(L) 3.5 - 5.1 MMOL/L 11/18/2023 5:49 PM CDT [facility] CHLORIDE S/P/B 110 97 - 115 MMOL/L 11/18/2023 5:49 PM CDT [facility] CO2 22.4 21 - 32 MMOL/L 11/18/2023 5:49 PM CDT [facility] CALCIUM S/P/B 8.9 8.5 - 10.1 MG/DL 11/18/2023 5:49 PM CDT [facility] BILIRUBIN TOTAL S/P/B 0.3 0.2 - 1.1 MG/DL 11/18/2023 5:49 PM CDT [facility] Comment: THIS ASSAY IS NOT RECOMMENDED FOR PATIENTS UNDERGOING TREATMENT WITH ELTROMBOPAG DUE TO THE POTENTIAL FOR FALSELY ELEVATED RESULTS. TOTAL PROTEIN S/P/B 6.5 6.4 - 8.2 G/DL 11/18/2023 5:49 PM CDT [facility] ALBUMIN S/P/B 2.8(L) 3.4 - 5.0 G/DL 11/18/2023 5:49 PM CDT [facility] AST 15 15 - 37 U/L 11/18/2023 5:49 PM CDT [facility] ALT 18 14 - 55 U/L 11/18/2023 5:49 PM CDT [facility] ALKALINE PHOSPHATASE S/P/B 94 50 - 136 U/L 11/18/2023 5:49 PM CDT [facility] ANION GAP 7.6 2 - 10 MMOL/L 11/18/2023 5:49 PM CDT [facility] BUN CREATININE RATIO 12.5 6 - 26 11/18/2023 5:49 PM CDT [facility] A/G RATIO 0.8(L) 1.0 - 2.0 RATIO 11/18/2023 5:49 PM CDT [facility] GFR ESTIMATE >90 >90 ML/MIN/1.7 3 M2 11/18/2023 5:49 PM CDT [facility] Comment: NOTE: eGFR is not calculated for patients <18 years of age. This is an estimated GFR calculation using the new CKD EPI creatinine equation without race and so does not require a correction factor for race. This estimated GFR should not be used for calculating drug doses. 11/18/2023 4:58 PM CDT us Rhianna Peres NP LABORATORY Final Result [facility] [address] [place] [address], * (ABNORMAL) CBC W/DIFF AUTOMATED (11/18/2023 4:58 PM CDT) WBC 10.02 4.5 - 13.0 x10'3/uL 11/18/2023 6:04 PM CDT [facility] RBC 3.51(L) 4.20 - 5.40 x10'6/uL 11/18/2023 6:04 PM CDT [facility] HGB 10.1(L) 12.0 - 16.0 G/DL 11/18/2023 6:04 PM CDT [facility] HCT 30.5(L) 38.0 - 48.0 % 11/18/2023 6:04 PM CDT [facility] MCV 86.9 81.0 - 99.0 FL 11/18/2023 6:04 PM CDT [facility] MCH 28.8 27.0 - 31.0 PG 11/18/2023 6:04 PM CDT [facility] MCHC 33.1 32.0 - 36.0 G/DL 11/18/2023 6:04 PM CDT [facility] RDW 12.9 11.5 - 14.5 % 11/18/2023 6:04 PM CDT [facility] PLT 308 130 - 400 x10'3/uL 11/18/2023 6:04 PM CDT [facility] MPV 9.7 9.3 - 12.2 FL 11/18/2023 6:04 PM CDT [facility] DIFFERENTIAL TYPE AUTOMATED DIFFERENTIAL 11/18/2023 6:04 PM CDT [facility] NEUTROPHILS % 75.8 % 11/18/2023 6:04 PM CDT [facility] LYMPHOCYTES % 14.4 % 11/18/2023 6:04 PM CDT [facility] MONOCYTES % 6.6 % 11/18/2023 6:04 PM CDT [facility] EOSINOPHILS 1.9 % 11/18/2023 6:04 PM CDT [facility] BASOPHILS 0.3 % 11/18/2023 6:04 PM CDT [facility] IMMATURE GRANS % 1.0 % 11/18/19 6:04 PM CDT [facility] ABS. NEUTROPHILS 7.60 1.80 - 8.00 x10'3/uL 11/18/2023 6:04 PM CDT [facility] ABS. LYMPHOCYTES 1.44 1.20 - 5.20 x10'3/uL 11/18/2023 6:04 PM CDT [facility] ABS. MONOCYTES 0.66 0.24 - 0.86 x10'3/uL 11/18/2023 6:04 PM CDT [facility] ABS. EOSINOPHILS 0.19 0.04 - 0.36 x10'3/uL 11/18/2023 6:04 PM CDT [facility] ABS. BASOPHILS 0.03 0.01 - 0.08 x10'3/uL 11/18/2023 6:04 PM CDT [facility] ABS. IMMATURE GRANULOCYTES 0.10 0.00 - 0.49 x10'3/uL 11/18/2023 6:04 PM CDT [facility] 11/18/2023 4:58 PM CDT Rhianna Peres NP LABORATORY Final Result [facility] [address] [place] [address], * (ABNORMAL) POCT urine (11/18/2023 4:57 PM CDT) URINE HCG TEST POSITIVE(A ) Internal Control: VALID Rhianna Peres NP POINT OF CARE TEST ORDERABLES Final Result * ECG 12 lead (11/18/2023 4:41 PM CDT) 11/18/2023 4:41 PM CDT Narrative [facility] - 11/18/2023 10:22 PM CDT ?[facility] ? [address], [place] ? Test Date: ?2023-11-18 Pat Name: ? LOULOU CHANG ? Department: ?? 41 ? Room: ? EXAM13 Gender: ? Female ? Solar Crew Member: ?? [id number] : ?2005 ? Requested By: RHIANNA PERES Order Number: [id number] ? Reading MD: ?? Alexander Hushion ? Measurements Intervals ?[place] ? Rate: ? 100 ?P: ?49 MD: ? 132 ?QRS: ?37 QRSD: ? 84 ? T: ?15 QT: ? 330 ? QTc: ?427 ? Interpretive Statements SINUS TACHYCARDIA NONSPECIFIC T-WAVE ABNORMALITY ABNORMAL RHYTHM ECG No previous ECG available for comparison Other ischemic changes, not STEMI Preliminary EKG Interpretation by Loida Elizabeth NP Procedure Note Alexander Reyez MD - 11/18/[address]23 [facility] [address] Test Date: 2023-11-18 Pat Name: LOULOU CHANG Department: 41 Room: [facility] Gender: Female Solar Crew Member: [id number] : 2005 Requested By: RHIANNA PERES Order Number: [id number] Reading MD: Alexander Reyez Measurements Intervals [place] Rate: 100 P: 49 MD: 132 QRS: 37 QRSD: 84 T: 15 QT: 330 QTc: 427 Interpretive Statements SINUS TACHYCARDIA NONSPECIFIC T-WAVE ABNORMALITY ABNORMAL RHYTHM ECG No previous ECG available for comparison Other ischemic changes, not STEMI Preliminary EKG Interpretation by Loida Elizabeth NP us Rhianna Peres NP ECG ORDERABLES Final Result [facility] [employer] documented in this encounter Visit Diagnoses Diagnosis Chest wall pain- Primary Painful respiration Hypokalemia Hypopotassemia documented in this encounter Administered Medications Inactive Administered Medications - up to 3 most recent administrations Medication Order MAR Action Action Date Dose Rate Site acetaminophen (TYLENOL) tablet 650 mg 650 mg, Oral, Once, 1 dose, On Thu11/18/23 at 1630, Maximum dose of acetaminophen is 4000 mg from all sources in 24 hours. Given 11/18/2023 4:47 PM CDT 650 mg potassium chloride CR (K-TAB) tablet 40 mEq 40 mEq, Oral, Once, 1 dose, On Thu11/18/23 at 1815, Do not break, chew, or crush. Given 11/18/2023 6:11 PM CDT 40 mEq predniSONE (DELTASONE) tablet 20 mg 20 mg, Oral, Once, 1 dose, On Thu11/18/23 at 1630 Given 11/18/2023 4:47 PM CDT 20 mg sodium chloride 0.9% bolus infusion 500 mL 500 mL, Intravenous, Administer over 30 Minutes, Once, 1 dose, On Thu11/18/23 at 1630 New Bag 11/18/2023 4:48 PM CDT 500 mLs 1000 mL/hr documented in this encounter Active and Recently Administered Medications Times are shown in CDT. Scheduled Medication Order 11/16/2023 11/17/2023 11/18/2023 acetaminophen (TYLENOL) tablet 650 mg (COMPLETED) 650 mg, Oral, Once, 1 dose, On Thu11/18/23 at 1630, Maximum dose of acetaminophen is 4000 mg from all sources in 24 hours. 1647 (Given - Provid er: Ibrahima Cadena RN) potassium chloride CR (K-TAB) tablet 40 mEq (COMPLETED) 40 mEq, Oral, Once, 1 dose, On Thu11/18/23 at 1815, Do not break, chew, or crush. 1811 (Given - Provid er: Mary Joseph RN) predniSONE (DELTASONE) tablet 20 mg (COMPLETED) 20 mg, Oral, Once, 1 dose, On Thu11/18/23 at 1630 1647 (Given - Provid er: Ibrahima Cadena RN) sodium chloride 0.9% bolus infusion 500 mL (COMPLETED) 500 mL, Intravenous, Administer over 30 Minutes, Once, 1 dose, On Thu11/18/23 at 1630 1648 (New Bag - Prov ider: Ibrahima Cadena RN)1742 (Infusion Stop Time - Provider: Mary Joseph RN) documented in this encounter Additional Health Concerns Infection Onset Date Last Indicated Resolved Time COVID-19 Rule Out 11/18/2023 11/18/2023 11/18/2023 5:46 PM CDT documented as of this encounter Care Teams Boiler Out Relationship Specialty Start Date End Date None, Provider, PCP - General UNKNOWN PHYSICIAN SPECIALTY 10/29/22 documented as of this encounter
--- OUTSIDE RECORDS SUMMARY | 2024-03-24 00:28 | XMS_ITS | Encounter Summary ---
Author Organization [facility] Health Address [address] [place] [address] Care Team Providers Care Security Infrastructure Engineer Name Role Phone Madeline Davis MD Primary Care Provider [phone] Encounter Details Date Type Department Care Team (Latest Contact Info) Description 12/07/2023 Travel Social History Tobacco Use Types Packs/Day [...] on filedocumented in this encounter Care Teams Security Infrastructure Engineer Relationship Specialty Start Date End Date Madeline Davis MD [address] [place] [address] [address] [place] [address] PCP - General Family Medicine 07/31/18 documented as of this encounter
--- OUTSIDE RECORDS SUMMARY | 2024-03-24 00:28 | XMS_ITS | Encounter Summary ---
Author Organization [facility] Health Address [address] [place] [address] Care Team Providers Care Linux Admin Engineer Name Role Phone Madeline Davis MD Primary Care Provider [phone] Reason for Referral * (Routine) - Open Specialty Diagnoses / Procedures Referred By Josemanuel silver Referred To Contact Diagnoses Abnormal chromosomal and genetic finding on screening of mother Procedures SONOGRAM - COMPLETE Manuel Morris MD [address] [address] Referral ID Status Reason Start Date Expiration Date Visits Re quested Visits Authorized [id number] Open 12/31/2023 12/30/2024 1 1 * (Routine) - Open Specialty Diagnoses / Procedures Referred By Josemanuel silver Referred To Contact Diagnoses Abnormal chromosomal and genetic finding on screening of mother Procedures SONOGRAM - COMPLETE Manuel Morris MD [address] [address] Referral ID Status Reason Start Date Expiration Date Visits Re quested Visits Authorized [id number] Open 12/31/2023 12/30/2024 1 1 Encounter Details Date Type Department Care Team (Latest Contact Info) Description 01/04/2024 9:36 AM CDT - 01/04/2024 11:59 PM CDT Hospital Encounter [facility] MATERNAL/ EVALUATION UNIT 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 ? - [place] ?[facility] ?PHONE: ??FAX: Pat. Name: ?EMERSON CHANG. No: ?[id number] Study Date: ?? 01/04/2024 ??10:10am , Age: ? 2005, 18 Pregnancies: ?? 1, Para 0 Height: ? 64 in Weight: ? 244 lb LMP: ?Unknown GA by Base: ?? 28w6d ?? ANGUS: 03/22/2024 GA by US: ? 30w1d ?? ANGUS: 03/13/2024 GA Selected: ??28w6d (From [place]) ANGUS: ?03/22/2024 Referring MD: Mike Archer MD Siebel Architect: ??Staci Troy, FINN, RVT, RDCS CPT4: ? 45513 BMI: ?41.88 Hist/Ind: ? 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 GROWTH EVALUATION Measurement ??GA ? Range ? Srce %for GA Ratios ----- ---- ------- BPD ??7.5 cm 30w0d (28t9o-07v5f) Hadl BPD 74% FL/BPD 0.76 (0.71 - 0.87) HC ??28.5 cm 31w2d (17y2b-79x2w) Hadl HC ??86% FL/AC ??0.22 (0.20 - 0.24) AC ??25.4 cm 29w4d (17n0o-32p4k) Hadl AC ??67% HC/AC ??1.12 (0.99 - 1.18) FL ?? 5.7 cm 29w6d (60p0e-90k3r) Hadl FL ??65% CI ? 0.73 (0.70 - 0.86) HL ?? 5.4 cm 31w2d (82f8t-82w5x) Mian HL ??91% GA for sonogram 30w1d (75e6x-42b2n) ?? Weight Estimate: based on (BPD,HC,AC,FL) Avg ?Weight: 1474 gm (1259-1689gm) Had ? : 3lbs, 3oz ? Normal: 1355 gm (1016- 1694gm) Had ? Wt% ? 75% for 28w6d Heart Rate: 147 bpm Amniotic Fluid Index: 11.2cm (09.2-23.1) Q1: 5.5cm ??Q2: 3.9cm ??Q3: 0.0cm ??Q4: 1.8cm ?? PROCEDURE, TECHNIQUE Technique: transabdominal EVAL, PLACENTA Presentation: cephalic Placenta: anterior Heart Rate: 147 bpm Amniotic Fluid Volume: normal CLINICAL SUMMARY A single fetus is seen in cephalic presentation. ??The measurements today are consistent with appropriate interval growth. ??The ANGUS selected is based on a prior ultrasound. ??The amniotic fluid volume is normal. ?? IMPRESSION: Single, live, intrauterine at 28w6d ?? Amniotic fluid volume: within normal limits ?? size is within normal limits RECOMMEND: Ultrasound in 4 weeks for growth assessment ?? Thank you for allowing us the opportunity to care for your patient. ?? 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
--- OUTSIDE RECORDS SUMMARY | 2024-03-24 00:28 | XMS_ITS | Encounter Summary ---
Author Organization [facility] Address [address] [place] [address]. [place], [place] [address] [place] [address] Care Team Providers Care Supervisor Roller Shop Name Role Phone Madeline Davis MD Primary Care Provider [phone] Encounter Details Date Type Department Care Team (Latest Contact Info) Description 12/11/2019 Travel Social History Tobacco Use Types Packs/Day [...] or suspected to have Coronavirus / COVID-19? Yes 12/11/2019 3:09 PM CDT documented as of this encounter Plan of Treatment Not on file documented as of this encounter Visit Diagnoses Not on filedocumented in this encounter Additional Health Concerns Infection Onset Date Last Indicated Resolved Time COVID-19 Rule Out 12/11/2019 12/11/2019 12/13/2019 7:31 PM CDT documented as of this encounter Care Teams Supervisor Roller Shop Relationship Specialty Start Date End Date Madeline Davis MD [address] [facility] [facility] [address] [place] [address] PCP - General FAMILY PRACTICE 10/29/18 10/28/22 documented as of this encounter
--- OUTSIDE RECORDS SUMMARY | 2024-03-24 00:28 | XMS_ITS | Encounter Summary ---
Author Organization [facility] Health Address [address] [place] [address] Care Team Providers Care Cdl Service Technician Name Role Phone Madeline Davis MD Primary Care Provider [phone] Reason for Visit * Reason Comments Ultrasound Encounter Details Date Type Department Care Team (Latest Contact Info) Description 09/14/2023 9:39 AM CDT - 09/14/2023 11:59 PM CDT Hospital Encounter [facility] MATERNAL/ EVALUATION UNIT [address] [place] [address] Manuel Morris MD [address] [place] [address] Discharge Disposition: Home or Self Care Social [...] Associated Diagnosis Comments SONOGRAM - COMPLETE Routine 09/14/2023 1 0:41 AM CDT documented in this encounter Results * SONOGRAM - COMPLETE (09/14/2023 10:41 AM CDT) Anatomical Region Laterality Modality Other 09/14/2023 10:4 1 AM CDT Narrative 09/14/2023 11:33 AM CDT ?[facility] ? - [place] ?Maternal and Care Center ?PHONE: ??FAX: Pat. Name: ?EMERSON CHANG Pat. No: ?[id number] Study Date: ?? 09/14/2023 ??10:41am , Age: ? 2005, 18 Pregnancies: ?? 1, Para 0 Height: ? 64 in Weight: ? 244 lb LMP: ?Unknown GA by US: ? 13w3d ?? ANGUS: 03/18/2024 GA Selected: ??12w6d (Outside Scan) ANGUS: ?03/22/2024 Referring MD: Mike Archer MD Dairy Nutrition Specialist: ??Cara Garza RDMS CPT4: ? 33120,01154 BMI: ?41.88 Hist/Ind: ? 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 GROWTH EVALUATION Measurement ??GA ? Range ? Srce %for GA Ratios ----- ---- ------- CRL ??7.4 cm 13w3d (51t0g-93o2y) Hadl CRL 77% GA for sonogram 13w3d (85h7n-43k3j) based on (CRL) Avg ? Markers for Chromosomal Abnormality: NT ?? 1.7 mm (Normal) Heart Rate: 162 bpm PROCEDURE, TECHNIQUE Technique: transabdominal EVAL, PLACENTA Presentation: cephalic Placenta: anterior Heart Rate: 162 bpm Amniotic Fluid Volume: normal Anatomy!Seen!Not Seen!Comments # Fetuses ?! ??x ! ?! Amnion ? ! ??x ! ?! Chorion ?! ??x ! ?! Myometrium ?? ! ??x ! ?! Right Ovary ??! ?! ?x ?? ! Left Ovary ?? ! ?! ?x ?? ! Cul de sac ?? ! ??x ! ?! Calvarium* ?? ! ??x ! ?! Midline Falx*! ??x ! ?! 4th Ventricle! ?! ?x ?? ! Lateral Ventr! ??x ! ?! Choroid Plexu! ??x ! ?! Nasal Bone* ??! ??x ! ?! Neck/Dorsum* ! ??x ! ?!< 3mm 4 CH* ?! ?! ?x ?? ! Abdominal Cor! ?! ?x ?? ! Diaphragm* ?? ! ?! ?x ?? ! Spine* ? ! ?! ?x ?? ! Stomach* ? ! ??x ! ?! Kidneys* ? ! ??x ! ?! Bladder* ? ! ??x ! ?! Upper Extremi! ??x ! ?! Lower Extremi! ??x ! ?! CLINICAL SUMMARY TAUS was ??used to image single intrauterine with cardiac activity. ??There is no free fluid seen in the pelvis. ??The right ovary was not seen. ??The left ovary was not seen. The nuchal translucency measures 1.7 mm IMPRESSION: Single, live, intrauterine at ??12w6d NT measurement WNL RECOMMEND: Follow up ultrasound in 4 weeks for early anatomy and growth Follow up ultrasound at 20 weeks to evaluate anatomy and transvaginal cervical screening Thank you for allowing us the opportunity to care for your patients Manuel Morris MD <Electronic Signature> ??09/14/2023 11:32am R Geremias Klein MD [facility] ORDERABLES documented in this encounter Visit Diagnoses Diagnosis Abnormal genetic test during - Primary Obesity in (HCC) Obesity complicating , childbirth, or the puerperium, unspecified as to episode of care or not applicable Nuchal translucency of fetus on ultrasound (HCC) documented in this encounter Care Teams Cdl Service Technician Relationship Specialty Start Date End Date Madeline Davis MD [address] [facility] [address] [place] [address] PCP - General Family Medicine 07/31/18 documented as of this encounter
--- OUTSIDE RECORDS SUMMARY | 2024-03-24 00:28 | XMS_ITS | Encounter Summary ---
Author Organization [facility] Address [address] [place] [address] Care Team Providers Care Hardness Inspector Name Role Phone Madeline Davis MD Primary Care Provider [phone] Reason for Referral * (Routine) - Open Specialty Diagnoses / Procedures Referred By Contac t Referred To Contact Diagnoses Encounter for ultrasound to assess growth (HCC) Procedures SONOGRAM - COMPLETE Unlisted, Ordering MD Wilman Referral ID Status Reason Start Date Expiration Date Visits Re quested Visits Authorized [id number] Open 01/25/2024 01/24/2025 1 1 RITY SUPPORT ANALYST * (Routine) - Open Specialty Diagnoses / Procedures Referred By Contac t Referred To Contact Diagnoses Encounter for ultrasound to assess growth (HCC) Procedures SONOGRAM - COMPLETE Unlisted, Ordering MD Wilman Referral ID Status Reason Start Date Expiration Date Visits Re quested Visits Authorized [id number] Open 01/25/2024 01/24/2025 1 1 RITY SUPPORT ANALYST Encounter Details Date Type Department Care Team (Latest Contact Info) Description 02/01/2024 9:31 AM SECURITY SUPPORT ANALYST - 02/01/2024 11:59 PM SECURITY SUPPORT ANALYST Hospital Encounter [facility] MATERNAL/ EVALUATION UNIT [address] [place] [address] Manuel Morris MD [address] [place] [address] Discharge Disposition: Home or Self Care Social [...] Associated Diagnosis Comments SONOGRAM - COMPLETE Routine 02/01/2024 9 :54 AM SECURITY SUPPORT ANALYST Encounter for ultrasound to assess growth (HCC) documented in this encounter Results * SONOGRAM - COMPLETE (02/01/2024 9:54 AM SECURITY SUPPORT ANALYST) Linked Results Indication ======== growth assessment FOB's brother born with cleft lip and palate Asthma Obesity History ====== OB History ? 1. Para 0 Lab Tests Test ? Date ? Result NIPT ? 08/31/2023 ? High Risk Monosomy X - s/p genetic counseling, declined genetic diagnostic testing, wants ? cord blood sampling Maternal Assessment Physical Exam ??Height 163 cm, 5 ft 4 in. Weight 112 kg, 248 lb. Initial weight 111 kg, 244 lb. BMI 42.57 kg/m?. Initial BMI 41.88 kg/m?. Weight gain 2 kg, 4 lb Method ====== Transabdominal ultrasound ========= Ngo . Number of fetuses: 1 Dating ====== ? Date ?Details ? Gest. age ? ANGUS Stated ANGUS ? 32 w + 6 d ?03/22/2024 U/S ?02/01/2024 ?based upon AC, BPD, Femur, HC ? 34 w + 6 d ?03/08/2024 Assigned dating based on stated ANGUS, selected on 02/01/2024 ?32 w + 6 d ?03/22/2024 General Evaluation Cardiac activity present. FHR 130 bpm. Presentation: cephalic Placenta: Placental site: anterior Amniotic fluid: Amount of AF: normal. MVP 5.5 cm. JUAN 16.2 cm. Q1 3.0 cm, Q2 5.5 cm, Q3 3.6 cm, Q4 4.1 cm Biometry BPD ?87.5 ?mm ?35w 2d ??96% ? Hadlock HC ? 320.5 ?? mm ?36w 1d ??91% ? Hadlock AC ? 312.4 ?? mm ?35w 1d ??96% ? Hadlock Femur ?63.8 ?mm ?33w 0d ??41% ? Hadlock Humerus ?55.7 ?mm ?32w 3d ??47% ? Rodney HC / AC ?1.03 Weight Calculation: EFW ?2,494 ?? g ? 90% ? Hadlock EFW (lb,oz) ?5 lb 8 ??oz EFW by ? Hadlock (ODG-HW-BC-FL) Head / Face / Neck Biometry: Cephalic index ? 0.78 ?24% ? Nicolaides LGA Growth Overview Exam date ?GA ?BPD (mm) ?HC (mm) AC (mm) FL (mm) HL (mm) EFW (g) 02/01/2024 ? 32w 6d ??87.5 ?96% ? 320.5 ?? 91% ? 312.4 ?? 96% ? 63.8 ?41% ? 55.7 ?47% ? 2494 ?90% Anatomy The following structures appear normal: Abdomen ?Stomach. Kidneys. Bladder. Impression ========= Single, live, intrauterine at 32w6d size appears LGA Amniotic fluid volume: normal No major malformations were seen within the limitations of ultrasound Follow-up ======== Follow up ultrasound in 4 weeks for growth and weekly 8 point BPP (with NST added if needed) Coding ====== Procedures ? 41104: US Preg Uterus Follow Up Pocket[facility] Limited PACS Anatomical Region Laterality Modality Other 02/01/2024 9:54 AM SECURITY SUPPORT ANALYST Ordering Provider Unlisted MD DEN VALLADARES documented in this encounter Visit Diagnoses Diagnosis Encounter for ultrasound to assess growth (HCC)- Primary Supervision of high-risk of young primigravida (HCC) Supervision of high-risk of young primigravida Obesity in (HCC) Obesity complicating , childbirth, or the puerperium, unspecified as to episode of care or not applicable Encounter for ultrasound to check growth (HCC) 32 weeks gestation of (HCC) state, incidental documented in this encounter Care Teams Hardness Inspector Relationship Specialty Start Date End Date Madeline Davis MD [address] [facility] [address] [place] [address] PCP - General Family Medicine 07/31/18 documented as of this encounter
--- OUTSIDE RECORDS SUMMARY | 2024-03-24 00:28 | XMS_ITS | Encounter Summary ---
Author Organization [facility] Health Address [address] [place] [address] Care Team Providers Care Consulting Practice Manager Name Role Phone Madeline Davis MD Primary Care Provider Encounter Details Date Type Department Care Team (Latest Contact Info) Description 10/12/2023 Travel Social History Tobacco Use Types Packs/Day [...] on filedocumented in this encounter Care Teams Consulting Practice Manager Relationship Specialty Start Date End Date Madeline Davis MD [address] [place] [address] [address] [place] [address] PCP - General Family Medicine 07/31/18 documented as of this encounter
--- OUTSIDE RECORDS SUMMARY | 2024-03-24 00:28 | XMS_ITS | Encounter Summary ---
Author Organization [facility] Address [address] [place] [address]. [place], [place] [id number] [place] [address] Care Team Providers Care Rehabilitation Director Name Role Phone Madeline Davis MD Primary Care Provider [phone] Reason for Visit * Reason Comments Suspected Coronavirus (Covid-19) Encounter Details Date Type Department Care Team (Late st Contact Info) Description 12/11/2019 3:09 PM CDT - 12/11/2019 6:16 PM CDT Emergency [facility] [place] [address] Grace De Leon DO Suspected Coronavirus (Covid-19) Discharge Disposition: Home or Self Care (Routine [...] Sign Reading Time Taken Comments Blood Pressure 135/93 12/11/2019 3:48 PM CDT Pulse 122 12/11/2019 3:48 PM CDT Temperature 36.5 ??C (97.7 ??F) 12/11/2019 3:48 PM CD T Respiratory Rate 22 12/11/2019 3:48 PM CDT Oxygen Saturation 96% 12/11/2019 3:48 PM CDT Inhaled Oxygen Concentration - - Weight 92.9 kg (204 lb 12.9 oz) 12/11/2019 3:48 PM CDT Height 166 cm (5' 5.35) 12/11/2019 3:48 PM CDT Body Mass Index 33.71 12/11/2019 3:48 PM CDT Body Mass Index Percentile 97.99% 12/11/2019 3:4 8 PM CDT Growth Chart: [facility] [place] 2[place] (Girls, 2- 20 Years) documented in this encounter Discharge Instructions * Discharge Instructions* Grace De Leon, DO - 12/11/2019 4:50 PM CDT Pt looks well, well hydrated, no respiratory distress, lungs clear. D/C home. PT tested for COVID-19 as requested. Discussed supportive care and reasons to follow up, as well as self-isolation guidelines. Colds and most upper respiratory illnesses are caused by viruses, and simply need to run their course. You may help your child by treating their symptoms. Give tylenol (650 mg every 4 hours) or ibuprofen (400 mg every 6 hours) as needed for fevers or pain. If needed, you may alternate giving the tylenol and ibuprofen every 3 hours. Encourage your child to drink plenty of fluids to stay well hydrated, especially water, pedialyte, or milk (avoid soda or juice as these can worsen abdominal discomfort, diarrhea, and dehydration). A humidifier by the bedside can help with cough. Children's cough medicine is safe to use but may not help your symptoms. 1-2tsp of honey every 4 hours has been shown to help cough just as much, if not more, than cough syrup. You may give xgig-ilu-[id number] benadryl or zyrtec as needed for sinus congestion. Use saline spray if nostrils are congested or dry. Sudafed PE and Afrin nasal spray may be used to help congestion butshould be used according to package directions. The cough from a viral illness may last for several weeks, but your child should overall be feelingbetter and fever-free within 2-3 days. Follow up if he/she is not, or if your child has difficulty breathing or is not tolerating oral fluids. documented in this encounter Medications at Time of Discharge albuterol sulfate HFA 108 (90 Base) MCG/ACT inhaler Inhale 2 puffs into the lungs every 4 (four) hours as needed for Wheezing or Shortness of breath. 1 each 08/28/2019 hydrocortisone 1 % ointment Apply topically 2 (two) times daily. 25 g 11/03/2019 documented as of this encounter ED Notes * Rika Lino RN - 12/11/2019 6:15 PM CDT Mother of patient verbalizes understanding of quarantine instructions and follow up care. No questions or concerns at d/c. Rika Lino RN * Grace De Leon DO - 12/11/2019 4:42 PM CDT Chief Complaint Chief Complaint Patient presents with ??? Suspected Coronavirus (Covid-19) History of Present Illness Pt here with large group of friends/relatives all requesting covid-19 screening. Pt has had cough and congestion and chest tightness, as well as diarrhea. Denies fever, vomiting, or difficulty with PO fluids. +COVID exposure last week. Medical History ALLERGIES: No Known Allergies MEDICATIONS: [...] Review of Systems Constitutional: Negative for activity change, appetite change, chills, fever and unexpected weight change. HENT: Positive for congestion. Negative for rhinorrhea, sore throat and trouble swallowing. Eyes: Negative for discharge. Respiratory: Positive for cough and chest tightness. Negative for shortness of breath. Cardiovascular: Negative for chest pain and palpitations. Gastrointestinal: Positive for diarrhea. Negative for abdominal pain, blood in stool, constipation,nausea and vomiting. Endocrine: Negative for polydipsia. Genitourinary: Negative for dysuria, flank pain, frequency, hematuria, menstrual problem, vaginal bleeding and vaginal discharge. Skin: Negative for pallor and rash. Neurological: Negative for dizziness, syncope, weakness and headaches. All other systems reviewed and are negative. Physical Exam Filed Vitals: 12/11/19 1548 BP: (!) 135/93 Pulse: (!) 122 Resp: (!) 22 Temp: 97.7 ??F (36.5 ??C) TempSrc: Tympanic SpO2: 96% Weight: 92.9 kg (204 lb 12.9 oz) Height: 5' 5.35 (1.66 m) Physical Exam Constitutional: She appears well-developed and well-nourished. No distress. HENT: Mouth/Throat: Oropharynx is clear and moist. Cardiovascular: Normal rate, regular rhythm, normal heart sounds and intact distal pulses. Pulmonary/Chest: Effort normal and breath sounds normal. Neurological: She is alert. Nursing note and vitals reviewed. Diagnostic Studies / Procedures ELECTROCARDIOGRAMS: No results found for this visit on 12/11/19. LABORATORY STUDIES: No results found for this visit on 12/11/19. IMAGING STUDIES No orders to display ED Course / Medical Decision Making MDM Number of Diagnoses or Management Options Suspected COVID-19 virus infection: Diagnosis management comments: Pt looks well, well hydrated, no respiratory distress, lungs clear.D/C home. PT tested for COVID-19 as requested. Discussed supportive care and reasons to follow up, as well as self-isolation guidelines. Amount and/or Complexity of Data Reviewed Clinical lab tests: ordered Clinical Impression Suspected COVID-19 virus infection (Primary) Disposition: Discharge Grace De Leon DO 12/11/19 1650 * Emperatriz Yap RN - 12/11/2019 4:11 PM CDT Patient ambulatory to triage with c/o runny nose and cough for two days. Exposure to covid one weekago. documented in this encounter Plan of Treatment Not on file documented as of this encounter Procedures Procedure Name Priority Date/Time Associated Diagnosis Comments CORONAVIRUS (COVID 19) STAT 12/11/2019 4:20 PM CDT documented in this encounter Results * CORONAVIRUS (COVID 19) PCR [facility] (12/11/2019 4:20 PM CDT) CORONAVIRUS SARS COV 2 PCR (RESP) NOT DETECTED NOT DETECTED 12/13/2019 7:30 PM CDT [facility] Comment: A Not Detected (negative) test result for this test means that SARS- CoV-2 RNA was not present in the specimen above the limit of detection. A negative result does not rule out the possibility of COVID-19 and should not be used as the sole basis for treatment or patient management decisions. ??If COVID-19 is still suspected, based on exposure history together with other clinical findings, re-testing should be considered in consultation with public health authorities. Laboratory test results should always be considered in the context of clinical observations and epidemiological data in making a final diagnosis and patient management decisions. Please review the Fact Sheets and FDA authorized labeling available for health care providers and patients using the following websites: https://www.MOO.COM.Digitiliti/home/Covid-19/HCP/QuestIVD/fact- sheet.html https://www.MOO.COM.Digitiliti/home/Covid-19/Patients/ QuestIVD/fact-sheet.html This test has been authorized by the FDA under an Emergency Use Authorization (EUA) for use by authorized laboratories. Due to the current public health emergency, [facility] is receiving a high volume of samples from a wide variety of swabs and media for COVID-19 testing. In order to serve patients during this public health crisis, samples from appropriate clinical sources are being tested. Negative test results derived from specimens received in non-commercially manufactured viral collection and transport media, or in media and sample collection kits not yet authorized by FDA for COVID-19 testing should be cautiously evaluated and the patient potentially subjected to extra precautions such as additional clinical monitoring, including collection of an additional specimen. Methodology: ??Nucleic Acid Amplification Test (NAAT) includes PCR or TMA Additional information about COVID-19 can be found at the [facility] website: www.Rebit/Covid19. Test performed at [facility] [id number] [place] [address] ??[id number] Director: BHAVESH HENRIQUEZ DO,MPH FIRST TEST NO 12/11/2019 4:44 PM CDT [facility] EMPLOYED IN HEALTHCARE NO 12/11/2019 4:44 PM CDT [facility] SYMPTOMATIC DEFINED BY CDC NO 12/11/2019 4:44 PM CDT [facility] DATE OF SYMPTOM ONSET NO 12/11/2019 5:48 PM CDT [facility] HOSPITALIZATION STATUS NO 12/11/2019 4:44 PM CDT [facility] PATIENT IN ICU NO 12/11/2019 5:48 PM CDT [facility] RESIDENT OF [facility] NO 12/11/2019 4:44 PM CDT [facility] NOT 12/11/2019 4:44 PM CDT [facility] PATIENT'S RACE WHITE OR 12/11/2019 4:44 PM CDT [facility] ETHNICITY NONHISPANIC 12/11/2019 4:44 PM CDT [facility] SOURCE (QST) NASOPHARYNGEAL SWAB 12/11/2019 4:44 PM CDT [facility] NASOPHARYNGEAL SWAB / Unknown 12/11/2019 4:20 PM CDT us Grace De Leon DO MICROBIOLOGY - GENERAL ORD ERABLES Final Result [facility] [address] [place] [address], [facility] [address] [place] [address], documented in this encounter Visit Diagnoses Diagnosis Suspected COVID-19 virus infection- Primary documented in this encounter Additional Health Concerns Infection Onset Date Last Indicated Resolved Time COVID-19 Rule Out 12/11/2019 12/11/2019 12/13/2019 7:31 PM CDT documented as of this encounter Care Teams Rehabilitation Director Relationship Specialty Start Date End Date Madeline Davis MD [address] [address] PCP - General FAMILY PRACTICE 10/29/18 10/28/22 documented as of this encounter
--- OUTSIDE RECORDS SUMMARY | 2024-03-24 00:28 | XMS_ITS | Encounter Summary ---
Author Organization [facility] Address [address] [facility] [address] [place] [address] Care Team Providers Care Mining Plant Operator Name Role Phone Madeline Davis MD Primary Care Provider [phone] Encounter Details Date Type Department Care Team (Late st Contact Info) Description 12/24/2019 8:50 AM CDT - 12/24/2019 11:03 AM CDT Hospital Encounter [facility] [address] [place] [address] Dean Garcia MD [address] [place] [address] Emergency Medicine Discharge Disposition: Home or Self Care Social History Tobacco Use Types Packs/Day Years Used Date Smoking Tobacco: Passive Smo ke Exposure - Never Smoker Smokeless Tobacco: Never Sex and Gender Information Value Date Recorded Sex Assigned at Not on file Gender Identity Not on file Sexual Orientation Not on file documented as of this encounter Plan of Treatment Not on file documented as of this encounter Visit Diagnoses Diagnosis Unspecified injury of right lower leg, initial encounter Right knee pain, unspecified chronicity Fall on same level from slipping, tripping and stumbling without subsequent striking against object, initial encounter documented in this encounter Care Teams Mining Plant Operator Relationship Specialty Start Date End Date Madeline Davis MD [address] [facility] [address] [place] [address] PCP - General Family Medicine 07/31/18 documented as of this encounter
--- OUTSIDE RECORDS SUMMARY | 2024-03-24 00:28 | XMS_ITS | Encounter Summary ---
Author Organization [facility] Address [address] [place] [address]. [place], [place] [address] [place] [address] Care Team Providers Care Insurance Claim Representative Name Role Phone Madeline Davis MD Primary Care Provider [phone] Encounter Details Date Type Department Care Team (Latest Contact Info) Description 11/03/2019 Travel Social History Tobacco Use Types Packs/Day [...] on filedocumented in this encounter Care Teams Insurance Claim Representative Relationship Specialty Start Date End Date Madeline Davis MD [address] [address] PCP - General FAMILY PRACTICE 10/29/18 10/28/22 documented as of this encounter
--- OUTSIDE RECORDS SUMMARY | 2024-03-24 00:28 | XMS_ITS | Encounter Summary ---
Author Organization [facility] Address [address] [place] [address] Care Team Providers Care Network Solutions Architect Name Role Phone Madeline Davis MD Primary Care Provider [phone] Encounter Details Date Type Department Care Team (Latest Contact Info) Description 09/14/2023 Travel Social History Tobacco Use Types Packs/Day [...] on filedocumented in this encounter Care Teams Network Solutions Architect Relationship Specialty Start Date End Date Madeline Davis MD [address] [place] [address] [address] [place] [address] PCP - General Family Medicine 07/31/18 documented as of this encounter
--- OUTSIDE RECORDS SUMMARY | 2024-03-24 00:28 | XMS_ITS | Encounter Summary ---
Author Organization [facility] Address [address] [place] [address] Care Team Providers Care Waterproof Bag Cutting Machine Operator Name Role Phone Madeline Davis MD Primary Care Provider [phone] Encounter Details Date Type Department Care Team (Latest Contact Info) Description 01/04/2024 Travel Social History Tobacco Use Types Packs/Day [...] on filedocumented in this encounter Care Teams Waterproof Bag Cutting Machine Operator Relationship Specialty Start Date End Date Madeline Davis MD [address] [place] [address] [address] [place] [address] PCP - General Family Medicine 07/31/18 documented as of this encounter
--- OUTSIDE RECORDS SUMMARY | 2024-03-24 00:28 | XMS_ITS | Encounter Summary ---
Author Organization [facility] Address [address] [place] [address]. [place] [address] [place] [address] Care Team Providers Care Motor And Generator Brush Maker Name Role Phone None, Provider MD Primary Care Provider Unavaila ble Reason for Visit * Reason Comments Allergic Reaction Encounter Details Date Type Department Care Team (Late st Contact Info) Description 10/29/2022 8:07 PM CDT - 10/29/2022 8:53 PM CDT Emergency [facility] Emergency Room [address] [place], [place] [address] Grace Dietz, PA [address] [place] [address] Allergic Reaction Discharge Disposition: Home or Self Care (Routine [...] Sign Reading Time Taken Comments Blood Pressure 135/91 10/29/2022 7:46 PM CDT Pulse 75 10/29/2022 7:46 PM CDT Temperature 36.6 ??C (97.8 ??F) 10/29/2022 7:46 PM CD T Respiratory Rate 22 10/29/2022 7:46 PM CDT Oxygen Saturation 100% 10/29/2022 7:46 PM CDT Inhaled Oxygen Concentration - - Weight 94.3 kg (207 lb 14.3 oz) 10/29/2022 7:46 PM CDT Height 165.1 cm (5' 5) 10/29/2022 7:46 PM CDT Body Mass Index 34.6 10/29/2022 7:46 PM CDT Body Mass Index Percentile 97.13% 10/29/2022 7:4 6 PM CDT Growth Chart: [facility] [place]NOTE 3] (Girls, 2- 20 Years) documented in this encounter Discharge Instructions * Discharge Instructions* HECTOR Zaragoza - 10/29/2022 8:33 PM CDT Benadryl at home for itchiness Can apply ice for comfort Monitor site and follow up with primary care as needed Thank you for giving us the opportunity to care for you today. If at any point you are becoming more ill, your condition worsens or you have concerns, please call your doctor or return for re-evaluation. You are always welcome back. Our practice is committed to providing you the exceptional care. We want to hear from you! Please fill out the survey you get from us. Your feedback is anonymous & helps us improve the patient experience for you and others in the community we serve. - Grace Dietz PA-C - Emergency Medicine Provider documented in this encounter Medications at Time [...] as of this encounter ED Notes * Deanna Reed RN - 10/29/2022 8:53 PM CDT Provider discussed today's findings with the patient/family. The patient has been given informationregarding their treatment, follow up and concerning symptoms for which they should seek urgent or emergent attention. All questions answered. Pt ambulated out of ED with all personal belongings. vitals stable. * HECTOR Zaragoza - 10/29/2022 7:54 PM CDT ED NOTE Chief Complaint Chief Complaint Patient presents with Allergic Reaction History of Present Illness Loulou Chang is a 17-year-old female presented evaluation of redness, burning sensation and swelling to the left upper arm where she received a vaccination yesterday. Medical History ALLERGIES: Review of patient's allergies [...] HISTORY: Past Medical History: Diagnosis Date Asthma ([facility]) PAST SURGICAL HISTORY: History reviewed. No pertinent surgical history. FAMILY HISTORY: No family history on file. SOCIAL HISTORY: Social History Tobacco Use Smoking status: Never Smokeless tobacco: Never Substance Use Topics Alcohol use: No Drug use: No Review of Systems Review of Systems Skin: Positive for color change. All other systems reviewed and are negative. Physical Exam Filed Vitals: 10/29/221945 BP: (!) 135/91 Pulse: 75 Resp: 22 Temp: 97.8 ??F (36.6 ??C) TempSrc: Temporal SpO2: 100% Weight: 94.3 kg (207 lb 14.3 oz) Height: 5' 5 (1.651 m) Physical Exam Vitals and nursing note reviewed. Constitutional: General: She is not in acute distress. Appearance: Normal appearance. She is not ill-appearing. HENT: Head: Normocephalic and atraumatic. Nose: Nose normal. Mouth/Throat: Mouth: Mucous membranes are moist. Eyes: Conjunctiva/sclera: Conjunctivae normal. Cardiovascular: Rate and Rhythm: Normal rate and regular rhythm. Pulses: Normal pulses. Heart sounds: Normal heart sounds. No murmur heard. Pulmonary: Effort: Pulmonary effort is normal. No respiratory distress. Breath sounds: Normal breath sounds. Musculoskeletal: General: Normal range of motion. Cervical back: Normal range of motion and neck supple. Skin: General: Skin is warm and dry. Findings: Erythema present. Comments: Upper arm there is evidence of an injection site reaction. There is erythema, warmth and mild swelling. Neurological: General: No focal deficit present. Mental Status: She is alert and oriented to person, place, and time. Mental status is at baseline. Psychiatric: Mood and Affect: Mood normal. Behavior: Behavior normal. Diagnostic Studies / Procedures ELECTROCARDIOGRAMS: No results found for this visit on 10/29/22. LABORATORY STUDIES: No results found for this visit on 10/29/22. IMAGING STUDIES No orders to display ED Course / Medical Decision Making MDM Number of Diagnoses or Management Options Injection site reaction: minor Diagnosis management comments: Well-appearing 17-year-old female presents for injection site reaction to the left upper arm. No concerning findings. Advised to treat symptomatically at home and monitoring for worsening signs Risk of Complications, Morbidity, and/or Mortality Presenting problems: minimal Diagnostic procedures: minimal Management options: minimal Patient Progress Patient progress: stable Medications dexamethasone PF (DECADRON) injection 8 mg (8 mg Intramuscular Given 10/29/222025) diphenhydrAMINE (BENADRYL) capsule 25 mg (25 mg Oral Given 10/29/222025) ibuprofen (MOTRIN) tablet 200 mg (200 mg Oral Given 10/29/222025) Clinical Impression Injection site reaction (Primary) Discharge Medication List as of 10/29/2022 8:33 PM Disposition: Discharge Follow-Up: No follow-up provider specified. HECTOR ZARAGOZA 10/29/2022 HECTOR Zaragoza 10/29/222224 Cosigned by Neeru Stevens MD at 10/29/2022 10:34 PM CDT * Jessica Salomon RN - 10/29/2022 7:45 PM CDT Pt presents to the ER with c/o allergic reaction to her upper left arm, pt had a vaccine yesterday,HPV and Meningitis. documented in this encounter Plan of Treatment Not on file documented as of this encounter Visit Diagnoses Diagnosis Injection site reaction- Primary Other and unspecified complications of medical care, not elsewhere classified documented in this encounter Administered Medications Inactive Administered Medications - up to 3 most recent administrations Medication Order MAR Action Action Date Dose Rate Site dexamethasone PF (DECADRON) injection 8 mg 8 mg, Intramuscular, Once, 1 dose, On Thu10/29/22 at 1999, Administer slowly over 1-4 minutes. Given 10/29/2022 8:26 PM CDT 8 mg Right Deltoid diphenhydrAMINE (BENADRYL) capsule 25 mg 25 mg, Oral, Once, 1 dose, On Thu10/29/22 at 1999 Given 10/29/2022 8:26 PM CDT 25 mg ibuprofen (MOTRIN) tablet 200 mg 200 mg, Oral, Once, 1 dose, On Thu10/29/22 at 1999 Given 10/29/2022 8:26 PM CDT 200 mg documented in this encounter Active and Recently Administered Medications Times are shown in CDT. Scheduled Medication Order 10/27/2022 10/28/2022 10/29/2022 dexamethasone PF (DECADRON) injection 8 mg (COMPLETED) 8 mg, Intramuscular, Once, 1 dose, On Thu10/29/22 at 1999, Administer slowly over 1-4 minutes. 2025 (Given - Provid er: Deanna Reed RN) diphenhydrAMINE (BENADRYL) capsule 25 mg (COMPLETED) 25 mg, Oral, Once, 1 dose, On Thu10/29/22 at 1999 2025 (Given - Provid er: Deanna Reed RN) ibuprofen (MOTRIN) tablet 200 mg (COMPLETED) 200 mg, Oral, Once, 1 dose, On Thu10/29/22 at 1999 2025 (Given - Provid er: Deanna Reed RN) documented in this encounter Care Teams Motor And Generator Brush Maker Relationship Specialty Start Date End Date None, Provider, PCP - General UNKNOWN PHYSICIAN SPECIALTY 10/29/22 documented as of this encounter
--- OUTSIDE RECORDS SUMMARY | 2024-03-24 00:28 | XMS_ITS | Encounter Summary ---
Author Organization [facility] Address [address] [place] [address] Care Team Providers Care Weblogic Developer Name Role Phone Madeline Davis MD Primary Care Provider [phone] Reason for Visit * Evaluate & Treat (Routine) - Authorized Specialty Diagnoses / Procedures Referred By Josemanuel silver Referred To Contact Maternal Medicine Diagnoses Supervision of other high risk pregnancies, unspecified trimester (HCC) High risk teen (HCC) Silva syndrome (HCC) Smoker Procedures UT FULL ROUT OBSTE CARE,VAGINAL DELIV [facility] [address] [place] [phone] [facility] [address] [place] [address] Referral ID Status Reason Start Date Expiration Date V isits Requested Visits Authorized [id number] Authorized 10/12/2023 10/11/2024 18 18 Encounter Details Date Type Department Care Team (Latest Contact Info) Description 10/12/2023 9:42 AM CDT - 10/12/2023 11:59 PM CDT Hospital Encounter [facility] MATERNAL/ EVALUATION UNIT [address] [place], [place] [id number] Manuel Morris MD [address] [place], [place] [id number] Discharge Disposition: Home or Self Care Social [...] Associated Diagnosis Comments SONOGRAM - COMPLETE Routine 10/12/2023 1 0:07 AM CDT documented in this encounter Results * SONOGRAM - COMPLETE (10/12/2023 10:07 AM CDT) Anatomical Region Laterality Modality Other 10/12/2023 10:0 7 AM CDT Narrative 10/12/2023 10:47 AM CDT ?[facility] ? - [place] [facility] ?PHONE: ??FAX: Pat. Name: ?EMERSON CORREIA Pat. No: ?[id number] Study Date: ?? 10/12/2023 ??10:07am , Age: ? 2005, 18 Pregnancies: ?? 1, Para 0 Height: ? 64 in Weight: ? 244 lb LMP: ?Unknown GA by Base: ?? 16w6d ?? ANGUS: 03/22/2024 GA by US: ? 17w4d ?? ANGUS: 03/17/2024 GA Selected: ??16w6d (From [facility]) ANGUS: ?03/22/2024 Referring MD: Mike Archer MD Retail Assistant Store Manager: ??Staci Troy, RDMS, RVT, RDCS CPT4: ? [address] BMI: ?41.88 Hist/Ind: ? Early anatomy ?[place]: High risk Monosomy X (6:10) ?Declined CVS & amniocentesis ?MIKE's brother born with cleft lip and palate ?Asthma MEASUREMENTS & AGE ? GROWTH EVALUATION Measurement ??GA ? Range ? Srce %for GA Ratios ----- ---- ------- BPD ??4.0 cm 18w1d (88q7l-85r4a) Hadl BPD 93% FL/BPD 0.60 HC ??14.2 cm 17w4d (20i4v-01u6s) Hadl HC ??73% FL/AC ??0.21 AC ??11.5 cm 17w2d (38w4m-94v5w) Hadl AC ??64% HC/AC ??1.24 (1.09 - 1.28) FL ?? 2.4 cm 17w2d (79d9b-36o2s) Hadl FL ??60% CI ? 0.80 (0.70 - 0.86) HL ?? 2.3 cm 17w0d (34i5l-78p9a) Mian HL ??53% GA for sonogram 17w4d (14u4j-17r0l) ?? Weight Estimate: based on (BPD,HC,AC,FL) Avg ?Weight: 189 gm (162-217gm) Hadloc ? : 0lbs, 6oz ? Normal: 176 gm (132-220gm) Hadloc ? Wt% ? 73% for 16w6d Heart Rate: 155 bpm Amniotic Fluid Index: 04.5cm (Deepest Pocket) PROCEDURE, TECHNIQUE Technique: transabdominal EVAL, PLACENTA Presentation: cephalic Umbilical Cord: 3 Vessels Placenta: anterior Heart Rate: 155 bpm Amniotic Fluid Volume: normal MATERNAL ANATOMY Right ??Desc: Appears normal Left ??Desc: Appears normal Anatomy!Normal!Abnormal!Suboptimal!Prev. Seen!Comments Calvarium- ?? ! ?? x ??! ?! ?! ?! Cerebellum- ??! ?? x ??! ?! ?! ?! Midline Falx-! ?? x ??! ?! ?! ?! Choroid Plexu! ?? x ??! ?! ?! ?! Lateral Ventr! ?? x ??! ?! ?! ?! Nasal Bone- ??! ?? x ??! ?! ?! ?! Spine ?! ?! ?! ? x ?! ?! 4 CH- ?! ?? x ??! ?! ?! ?! Stomach- ? ! ?? x ??! ?! ?! ?! 3 Vessel Cord! ?? x ??! ?! ?! ?! Kidneys- ? ! ?? x ??! ?! ?! ?! Bladder- ? ! ?? x ??! ?! ?! ?! Cord In! ?? x ??! ?! ?! ?! Upper Extremi! ?? x ??! ?! ?! ?! Lower Extremi! ?? x ??! ?! ?! ?! Placenta Cord! ?? x ??! ?! ?! ?! Maternal Adne! ?? x ??! ?! ?! ?! CLINICAL SUMMARY A single fetus is seen in cephalic presentation. ??The measurements today are consistent with appropriate growth for the ANGUS provided. ??The ANGUS is based on a prior ultrasound. ??The amniotic fluid volume is within normal limits. ?? IMPRESSION: Single, live, intrauterine at 16w6d ?? size is within normal limits ?? Amniotic fluid volume: within normal limits ?? No major malformations were seen within the limitations of ultrasound ?? Known high risk NIPT for XO, declined further genetic testing RECOMMEND: Ultrasound in 4 weeks for detailed anatomic survey and cervical length screening ?? 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
--- OUTSIDE RECORDS SUMMARY | 2024-03-24 00:28 | XMS_ITS | Clinical Summary ---
Author Organization [facility] Address [address] [place] [address]. [place] [address] [place] [address] Care Team Providers Care Ventilation Worker Name Role Phone None, Provider MD Primary Care Provider Unavaila ble Allergies No known active allergies Medications albuterol sulfate HFA 108 (90 Base) MCG/ACT inhaler Inhale 2 puffs into the lungs every 4 (four) hours as needed for Wheezing or Shortness of breath. 1 each 0 Active hydrocortisone 1 % ointment Apply topically 2 (two) times daily. 25 g 0 Active ibuprofen (IBUPROFEN CHILDRENS) 100 MG/5ML suspension Take 30 mLs (600 mg total) by mouth every 8 (eight) hours as needed for Fever. 0 0 Active Social History Tobacco Use Types Packs/Day Years [...] Mass Index 40.68 11/18/2023 4:14 PM CDT Plan of Treatment Health Maintenance Due Date Last Done Comments Hepatitis B Vaccines (3 of 3 - 3-dose series) 08/13/2005 06/18/2005, 2004 Annual Physical 07/09/2007 DTaP, Tdap and Td Vaccines (5 - Tdap) 07/09/2015 04/09/2006, 06/18/2005, 01/28/2005, Additional history exists COVID-19 Vaccine ( season) 2023 Influenza Adult (#1) 2023 Meningococcal Vaccine Aged Out 08/06/2016 No shantanu xavi eligible based on patient's age to complete this topic HPV Vaccines Completed 12/21/2019, 12/22/2017 Hepatitis C Completed 08/27/2023, 08/27/2023 Pneumococcal Vaccine: Pediatrics (0 to 5 Years) and At-Risk Patients (6 to 64 Years) Aged Out No longer eligible based on patient's age to complete this topic RSV Immunizations Under 20 Months Aged Out No longer eligible based on patient's age to complete this topic Insurance THOMAS Care Teams Ventilation Worker Relationship Specialty Start Date End Date None, Provider, PCP - General UNKNOWN PHYSICIAN SPECIALTY 10/29/22
--- OUTSIDE RECORDS SUMMARY | 2024-03-24 00:28 | XMS_ITS | Encounter Summary ---
Author Organization [facility] Address [address] [place] [address] Care Team Providers Care Lumber Estimator Name Role Phone Madeline Davis MD Primary Care Provider [phone] Reason for Visit * Reason Comments Lower Extremity Problem patient was kaylee basurtoeecherelle in the front yard yesterday and now has increased pain and swelling to the R knee. Last PO was last night for food and 1800. Incident happed yesterday around 1930. Pt reports feeling it pop out of place and back in Encounter Details Date Type Department Care Team (Late st Contact Info) Description 07/31/2018 6:28 PM CDT - 07/31/2018 9:00 PM CDT Emergency ER at [address] [address] Mayela Marx MD [address] [place] [address] [place] [address] Pain of right lower extremity; Sprain of right knee, unspecified ligament, initial encounter Discharge Disposition: Home or Self Care Social [...] Sign Reading Time Taken Comments Blood Pressure 108/62 07/31/2018 6:33 PM CDT Pulse 94 07/31/2018 6:33 PM CDT Temperature 37.2 ??C (98.9 ??F) 07/31/2018 6:33 PM CD T Respiratory Rate 22 07/31/2018 6:33 PM CDT Oxygen Saturation - - Inhaled Oxygen Concentration - - Weight 72 kg (158 lb 11.7 oz) 07/31/2018 6:33 PM CDT Height 164 cm (5' 4.57) 07/31/2018 6:33 PM CDT Body Mass Index 26.77 07/31/2018 6:33 PM CDT Body Mass Index Percentile 94.31% 07/31/2018 6:3 3 PM CDT Growth Chart: [facility] NAMED [facility] (Girls, 2- 20 Years) documented in this encounter Discharge Instructions * Discharge Instructions* Kristian Brooks MD - 07/31/2018 8:34 PM CDT Images from the original note were not included. Knee Sprain in Children WHAT YOU NEED TO KNOW: A knee sprain occurs when one or more ligaments in your child's knee are suddenly stretched or torn. Ligaments are tissues that hold bones together. Ligaments support the knee and keep the joint and bones in the correct position. DISCHARGE INSTRUCTIONS: Call your child's inspector automatic typewriter if: ?? Any part of your child's leg feels cold, numb, or looks pale. ?? Your child has new or increased swelling, bruising, or pain in his or her knee. ?? Your child's symptoms do not improve within 6 weeks, even with treatment. ?? You have questions or concerns about your child's condition or care. Medicines: Your child may need any of the following: ?? NSAIDs , such as ibuprofen, help decrease swelling, pain, and fever. This medicine is available with or without a doctor's order. NSAIDs can cause stomach bleeding or kidney problems in certain people. If your child takes blood thinner medicine, always ask if NSAIDs are safe for him. Always readthe medicine label and follow directions. Do not give these medicines to children under 6 months of age without direction from your child's healthcare provider. ?? Acetaminophen decreases pain and fever. It is available without a doctor's order. Ask how much to give your child and how often to give it. Follow directions. Read the labels of all other medicines your child uses to see if they also contain acetaminophen, or ask your child's doctor or pharmacist. Acetaminophen can cause liver damage if not taken correctly. ?? Prescription pain medicine may be given to your child. Ask how to safely give this medicine to your child. ?? Do not give aspirin to children under 18 years of age. Your child could develop Sen syndrome ifhe takes aspirin. Sen syndrome can cause life- threatening brain and liver damage. Check your child's medicine labels for aspirin, salicylates, or oil of wintergreen. ?? Give your child's medicine as directed. Contact your child's healthcare provider if you think the medicine is not working as expected. Tell him or her if your child is allergic to any medicine. Keep a current list of the medicines, vitamins, and herbs your child takes. Include the amounts, and when, how, and why they are taken. Bring the list or the medicines in their containers to follow-up visits. Carry your child's medicine list with you in case of an emergency. Manage your child's knee sprain: ?? Have your child rest his or her knee and not exercise. Your child may be told to keep weight offhis or her knee. This means that he or she should not walk on the injured leg. Rest helps decrease swelling and allows the injury to heal. Your child can do gentle range of motion (ROM) exercises as directed. This will prevent stiffness. ?? Apply ice on your child's knee for 15 to 20 minutes every hour or as directed. Use an ice pack, or put crushed ice in a plastic bag. Cover it with a towel. Ice helps prevent tissue damage and decreases swelling and pain. ?? Apply compression to your child's knee as directed. Your child may need to wear an elastic bandage. This helps keep your child's injured knee from moving too much while it heals. Your child's elastic bandage can be loosened or tightened to make it comfortable. It should be tight enough for your child to feel support. It should not be so tight that it causes your child's toes to feel numb or tingly. Take it off and rewrap it 1 time each day. ?? Elevate your child's knee above the level of his or her heart as often as possible. This will help decrease swelling and pain. Prop your child's leg on pillows or blankets to keep it elevated comfortably. Do not put pillows directly under your child's knee. ?? Have your child wear support devices as directed. Support devices such as a splint or brace may be needed. These devices limit movement and protect your child's joint while it heals. Your child may be given crutches to use until he or she can stand on his or her injured leg without pain. Your child should use devices as directed. Physical therapy: Physical therapy may be needed. A physical therapist teaches your child exercisesto help improve movement and strength, and to decrease pain. Prevent another knee sprain: Your child should exercise his or her legs to keep the muscles strong.Strong leg muscles help protect your child's knee and prevent strain. The following may also prevent a knee sprain: ?? Your child should slowly start an exercise or training program. Your child should slowly increase the time, distance, and intensity of his or her exercise. Sudden increases in training may cause your child to injure his or her knee again. ?? Your child should wear protective braces and equipment as directed. Braces may prevent your child's knee from moving the wrong way and causing another sprain. Protective equipment may support yourchild's bones and ligaments to prevent injury. ?? Your child should warm up and stretch before exercise. Your child should warm up by walking or using an exercise bike before starting regular exercise. He or she should do gentle stretches after warming up. This helps to loosen his or her muscles and decrease stress on the knee. Your child should also cool down and stretch after exercise. ?? Your child should wear shoes that fit correctly and support his or her feet. Your child's running or exercise shoes should be replaced before the padding or shock absorption is worn out. Ask your child's healthcare provider which exercise shoes are best for him or her. Ask if your child should wear special shoe inserts. Shoe inserts can help support your child's heels and arches or keep his orher foot lined up correctly in his or her shoes. Your child should exercise on flat surfaces. Follow up with your child's healthcare provider as directed: Write down your questions so you remember to ask them during your child's visits. ?? Copyright [employer] 2019 Information is for End User's use only and may not be sold, redistributed or otherwise used for commercial purposes. All illustrations and images included in CareNotes?? are the copyrighted property of [employer]. or [employer] The above information is an laundry aid only. It is not intended as medical advice for individual conditions or treatments. Talk to your doctor, nurse or pharmacist before following any medical regimen to see if it is safe and effective for you. Leg Pain WHAT YOU NEED TO KNOW: Leg pain may be caused by a variety of health conditions. Your tests did not show any broken bones or blood clots. DISCHARGE INSTRUCTIONS: Return to the emergency department if: ?? You have a fever. ?? Your leg starts to swell. ?? Your leg pain gets worse. ?? You have numbness or tingling in your leg or toes. ?? You cannot put any weight on or move your leg. Contact your healthcare provider if: ?? Your pain does not decrease, even after treatment. ?? You have questions or concerns about your condition or care. Medicines: ?? NSAIDs , such as ibuprofen, help decrease swelling, pain, and fever. This medicine is available with or without a doctor's order. NSAIDs can cause stomach bleeding or kidney problems in certain people. If you take blood thinner medicine, always ask your healthcare provider if NSAIDs are safe foryou. Always read the medicine label and follow directions. ?? Take your medicine as directed. Contact your healthcare provider if you think your medicine is not helping or if you have side effects. Tell him of her if you are allergic to any medicine. Keep a list of the medicines, vitamins, and herbs you take. Include the amounts, and when and why you take them. Bring the list or the pill bottles to follow-up visits. Carry your medicine list with you in case of an emergency. Follow up with your healthcare provider as directed: You may need more tests to find the cause of your leg pain. You may need to see an management specialist or a physical therapist. Write down your questions so you remember to ask them during your visits. Manage your leg pain: ?? Rest your injured leg so that it can heal. You may need an immobilizer, brace, or splint to limit the movement of your leg. You may need to avoid putting any weight on your leg for at least 48 hours. Return to normal activities as directed. ?? Ice the injury for 20 minutes every 4 hours for up to 24 hours, or as directed. Use an ice pack,or put crushed ice in a plastic bag. Cover it with a towel to protect your skin. Ice helps prevent tissue damage and decreases swelling and pain. ?? Elevate your injured leg above the level of your heart as often as you can. This will help decrease swelling and pain. If possible, prop your leg on pillows or blankets to keep the area elevated comfortably. ?? Use assistive devices as directed. You may need to use a cane or crutches. Assistive devices help decrease pain and pressure on your leg when you walk. Ask your healthcare provider for more information about assistive devices and how to use them correctly. ?? Maintain a healthy weight. Extra body weight can cause pressure and pain in your hip, knee, and ankle joints. Ask your healthcare provider how much you should weigh. Ask him to help you create a weight loss plan if you are overweight. ?? Copyright Infratel 2019 Information is for End User's use only and may not be sold, redistributed or otherwise used for commercial purposes. All illustrations and images included in CareNotes?? are the copyrighted property of [employer], [employer]. or [employer] The above information is an laundry aid only. It is not intended as medical advice for individual conditions or treatments. Talk to your doctor, nurse or pharmacist before following any medical regimen to see if it is safe and effective for you. documented in this encounter ED Notes * Lani Alanis RN - 07/31/2018 9:14 PM CDT Moses contacted for ride home confirmation # [id number] * Lani Alanis RN - 07/31/2018 8:47 PM CDT Pt alert and calm at time of discharge. VSS. Discharge plan for home reviewed with parent. Follow-up instructions reviewed. Given opportunity for questions. Family member verbalized understanding. Ptexited ER with family. * Mayela Marx - 07/31/2018 7:51 PM CDT Provider contact with the patient: 07/31/2018 7:51 PM [facility] EMERGENCY DEPARTMENT Loulou Chang [id number] History Chief Complaint Patient presents with ??? Lower Extremity Problem patient was doing cartwheels in the front yard yesterday and now has increased pain and swelling tothe R knee. Last PO was last night for food and 1800. Incident happed yesterday around 1930. Pt reports feeling it pop out of place and back in Chief complaint narrative was entered by triage nurse, not by physician. I have read the resident/medical student/BRAKE DRUM MOLDER history. Unless appended by me below, I agree with findings as documented. HPI History provided per pt and mother. Loulou Chang is a 13 year old female with no significant past medical history who presents with Rknee swelling and pain. Pt reports that she developed this R knee pain yesterday evening - she was doing a cartwheel and heard a pop in her R knee when she landed. Her mother proceeded to treat thept with ice, elevation, and ibuprofen, but the pain was still present when she woke up this morningand her knee looked more swollen today. Pt currently reports that her knee does not hurt when she is sitting, only when she straightens it all the way, bends it all the way, or stands/walks. She denies any other injuries or complaints. PMH: no chronic illnesses; no hx of knee injuries Review of Systems All relevant systems reviewed and all negative except as noted in resident/medical student/BRAKE DRUM MOLDER and attending HPI/ROS. Gen: negative Skin: negative HEENT: negative CV: negative Resp: negative GI: negative Musculoskeletal: + R knee swelling and pain Neurologic: negative Psychiatric: negative Physical Exam I have reviewed the resident/medical student/BRAKE DRUM MOLDER physical exam. Unless appended by me below, I agreewith the PE as documented. Vitals: 07/31/18 1833 BP: 108/62 Pulse: 94 Resp: (!) 22 Temp: 98.9 ??F (37.2 ??C) Weight: 72 kg (158 lb 11.7 oz) Height: 164 cm (64.57) Constitutional: adolescent female in NAD HEENT: head NC/AT,no drainage from nose, MMM Cardiovascular: RRR, no murmur Pulmonary: Normal respiratory effort. Breath sounds clear and equal bilaterally; no wheezing, rales, or rhonchi. Abdominal: S/NT/ND Extremities: WWP. R knee + swelling, + mild tenderness to palpation just medial and distal to patella. Able to flex and extend R knee but reports pain with both movements. Neurological: alert, follows commands, responds to questions, moves all four extremities Nursing notes and vitals reviewed. Procedures Procedures Labs/Orders Orders Placed This Encounter ??? CRUTCHES ADULT MEDIUM ??? BANDAGE SHIRLEY 6 STERILE ??? XR KNEE RIGHT 2VW OR LESS ??? ibuprofen (MOTRIN) tablet 600 mg XR KNEE RIGHT 2VW OR LESS (Results Pending) No results found for this visit on 07/31/18. ED Course Initial Assessment & Plan: 13 y.o. female with no significant PMH who presents with R knee painand swelling. Symptoms are most likely due to a sprain. Pt's XR shows no fracture on my preliminaryread (radiology read pending). Discussed RICE with pt and mother, who verbalized understanding and agree to FU with PMD in 2 weeks if pain has not resolved by then. 8:05 PM Pt has been evaluated. Pt and mother have been advised to follow RICE instructions for supportive care, return to play instructions, and to FU with PMD in 2 weeks if pain is persistent. The patient remains stable at the time of discharge. Our clinical impression was discussed and results were reviewed. The pt and mother were given the opportunity to ask questions, and we addressed them as completely as possible given the information available at present. The therapeutic plan was discussed, instructions were given and the importance of primary care follow up was stressed and encouraged. The pt and mother voiced understanding of the plan, indications to return, and the need for follow up. Medical Decision Making Differential Diagnosis: Sprain v. meniscus injury v. fracture Medical Decision Making I have reviewed the: Previous Chart, Nursing Notes, Vitals. I have interpreted the following results: X-Ray, Oxygen Saturation. I have discussed the case with Family/Caregiver. The total time providing critical care (excluding time spent for procedures) was: 0 minutes. Clinical Impression and Disposition Final Diagnosis: Final diagnoses: Pain of right lower extremity Sprain of right knee, unspecified ligament, initial encounter New Medications: New Prescriptions No medications on file I have advised the patient to follow-up with: Madeline Davis MD [address] [facility] [address] [address] [facility] [address] Schedule an appointment as soon as possible for a visit in 2 weeks If symptoms persist [facility] ORTHOPEDIC SURGERY [place] [id number] [facility] [place] [id number] Call in 2 weeks If symptoms worsen Disposition: Discharged 07/31/2018 8:05 PM Scribe Attestation By signing my name below, I, Rich Valdes, attest that this documentation has been prepared under thedirection and in the presence of Dr. Marx Electronically Signed: Rich Valdes 07/31/2018 7:51 PM Provider Attestation I, Dr. Marx, personally performed the services described in this documentation. All medical record entries made by the scribe were at my direction and in my presence. I have reviewed the chart and agree that the record reflects my personal performance and is accurate and complete. I have fully participated in the care of this patient. I have reviewed all pertinent clinical information available to me during this encounter, including history, physical exam and plan. I have reviewed nursing notes, vital signs, available labs and radiographic studies. With respect to physicians in training and mid- level providers, I, Dr. Marx, agree with the assessment and plan except if revised in my note. * Kristian Brooks MD - 07/31/2018 7:25 PM CDT EMERGENCY DEPARTMENT 07/31/2018 Dear Doctor, We had the pleasure of caring for your patient, Loulou Chang in our emergency department on 07/31/2018. A note from the provider(s) who cared for your patient is attached. Should you wish to access any laboratory results, please call . Should you wish to access any radiology results, please call , option 3. In addition, you can access patient information 24 hours a day, from any computer, through [employer], the online version of our electronic medical record. If you would like to use this service, please call Suellen John, Connectivity Coordinator, at . We appreciate the opportunity to care for your patients. If you would like additional information, please call the emergency department directly at . Sincerely, Kristian Brooks MD Division of Emergency Medicine [place], [place] [facility] [place] EMERGENCY DEPARTMENT Provider contact with the patient: 07/31/2018 19:25 Loulou M Bernardo [id number] [facility] EMERGENCY DEPARTMENT History Chief Complaint Patient presents with ??? Lower Extremity Problem patient was doing cartwheels in the front yard yesterday and now has increased pain and swelling tothe R knee. Last PO was last night for food and 1800. Incident happed yesterday around 1930. Pt reports feeling it pop out of place and back in HPI 13 yo. Yesterday around 1800 was doing cartwheels outside. Landed on knee, and states she felt a pop. Immediate pain and cried out. Has been elevating it, icing it, and giving ibuprofen. Continued pain and swelling today. Not able to bear weight due to pain. No past medical history on file. No past surgical history on file. Social History Social History ??? Marital status: Single Spouse name: N/A ??? Number of children: N/A ??? Years of education: N/A Occupational History ??? Not on file. Social History Main Topics ??? Smoking status: Passive Smoke Exposure - Never Smoker ??? Smokeless tobacco: Never Used ??? Alcohol use Not on file ??? Drug use: Not on file ??? Sexual activity: Not on file Other Topics Concern ??? Not on file Social History Narrative ??? No narrative on file Medications No current outpatient prescriptions on file. Review of Systems Review of Systems Constitutional: Negative for fever. HENT: Negative for rhinorrhea and sore throat. Eyes: Negative for visual disturbance. Respiratory: Negative for cough. Cardiovascular: Negative for chest pain. Gastrointestinal: Negative for diarrhea, nausea and vomiting. Musculoskeletal: Positive for arthralgias. Skin: Negative for rash. Neurological: Negative for headaches. BP 108/62 Pulse 94 Temp 98.9 ??F (37.2 ??C) Resp (!) 22 Ht 164 cm (64.57) Wt 72 kg (158 lb 11.7 oz) LMP 07/05/2018 (Approximate) BMI 26.77 kg/m2 Physical Exam Physical Exam Constitutional: She is oriented to person, place, and time. She appears well- developed and well-nourished. HENT: Head: Normocephalic and atraumatic. Mouth/Throat: Oropharynx is clear and moist. Eyes: EOM are normal. Neck: Normal range of motion. Neck supple. Cardiovascular: Normal rate and regular rhythm. Pulmonary/Chest: No respiratory distress. Abdominal: She exhibits no distension. Musculoskeletal: She exhibits edema and tenderness. She exhibits no deformity. R knee, tenderness to palpation to medial knee. No laxity. Able to bear weight. No pain with passive ROM Neurological: She is alert and oriented to person, place, and time. Procedures Procedures ECG Interpretation ECG Interpretation Lab/SPO2 Interpretation Progress Notes ED Course ED Course Medical Decision Making XRs negative for fracture No knee laxity Able to bear weight Sprain vs ligament rupture vs patella dislocation vs other Recommend RICE. Will provide crutches and training Continue ibuprofen Follow up with PCP in 1-2 weeks if not improving vs orthopedics if worsening Gym class note provided Family agrees with plan Will discharge Clinical Impression Final diagnoses: Pain of right lower extremity Sprain of right knee, unspecified ligament, initial encounter documented in this encounter Plan of Treatment Not on file documented as of this encounter Procedures Procedure Name Priority Date/Time Associated Diagnosis Comments XR KNEE RIGHT 2VW OR LESS STAT 07/31/2018 7:03 PM CDT Pain of right lower extremity documented in this encounter Results * XR KNEE RIGHT 2VW OR LESS [...] Mayela Marx MD DIAGNOSTIC IMAGING O [employer]DER[facility]LES documented in this encounter Visit Diagnoses Diagnosis Pain of right lower extremity Sprain of right knee, unspecified ligament, initial encounter documented in this encounter Administered Medications Inactive Administered Medications - up to 3 most recent administrations Medication Order MAR Action Action Date Dose Rate Site ibuprofen (MOTRIN) tablet 600 mg 600 mg, Oral, ONCE, 1 dose, On 07/31/18 at 1900, Maximum allowable amount = 3200 mg / 24 hours. $ Given 07/31/2018 6:39 PM CDT 600 mg documented in this encounter Active and Recently Administered Medications Times are shown in CDT. Scheduled Medication Order 07/29/2018 07/30/2018 07/31/2018 ibuprofen (MOTRIN) tablet 600 mg (COMPLETED) 600 mg, Oral, ONCE, 1 dose, On 07/31/18 at 1900, Maximum allowable amount = 3200 mg / 24 hours. 1839 ($ Given - Prov ider: Fatuma Amaral RN) documented in this encounter Care Teams Lumber Estimator Relationship Specialty Start Date End Date Madeline Davis MD [address] [place] [address] [address] [place] [address] PCP - General Family Medicine 07/31/18 documented as of this encounter
--- OUTSIDE RECORDS SUMMARY | 2024-03-24 00:28 | XMS_ITS | Encounter Summary ---
Author Organization [facility] Address [address] [place] [address]. [place], [place] [id number] [place] [id number] Care Team Providers Care Baseboard Heating Installer Name Role Phone None, Provider Primary Care Provider Joselyn rebollar Encounter Details Date Type Department Care Team (Latest Contact Info) Description 10/29/2022 Travel Social History Tobacco Use Types Packs/Day [...] on filedocumented in this encounter Care Teams Baseboard Heating Installer Relationship Specialty Start Date End Date None, Provider, PCP - General UNKNOWN PHYSICIAN SPECIALTY 10/29/22 documented as of this encounter
--- OUTSIDE RECORDS SUMMARY | 2024-03-24 00:28 | XMS_ITS | Encounter Summary ---
Author Organization [facility] Health Address [address] [facility] [place] [address] Care Team Providers Care Ergonomic Specialist Name Role Phone Madeline Davis MD Primary Care Provider [phone] Reason for Visit * Reason Onset Date Comments Referral 09/09/2023 Encounter Details Date Type Department Care Team (Late st Contact Info) Description 09/09/2023 Telephone [facility] MATERNAL/ EVALUATION UNIT [address] [place] [address]. [address] [place] [address] Jana Hunt RN Referral Social History Tobacco Use Types Packs/Day Years Used Date Smoking Tobacco: Passive Smo ke Exposure - Never Smoker Smokeless Tobacco: Never Sex and Gender Information Value Date Recorded Sex Assigned at Not on file Gender Identity Not on file Sexual Orientation Not on file documented as of this encounter Miscellaneous Notes * Telephone Encounter - Jana Hunt RN - 09/09/2023 12:43 PM CDT Loulou contacted and scheduled for GC/Ultrasound. Bikantat message sent. documented in this encounter Plan of Treatment Not on file documented as of this encounter Visit Diagnoses Not on filedocumented in this encounter Care Teams Ergonomic Specialist Relationship Specialty Start Date End Date Madeline Davis MD [address] [place] [address] [address] [place] [address] PCP - General Family Medicine 07/31/18 documented as of this encounter
--- OUTSIDE RECORDS SUMMARY | 2024-03-24 00:28 | XMS_ITS | Encounter Summary ---
Author Organization [facility] Address [address] [place] [address]. [place], [place] [id number] [place] [address] Care Team Providers Care Pneumatic Hoist Operator Name Role Phone None, Provider Primary Care Provider Joselyn rebollar Encounter Details Date Type Department Care Team (Latest Contact Info) Description 11/18/2023 Travel Social History Tobacco Use Types Packs/Day [...] documented as of this encounter Care Teams Pneumatic Hoist Operator Relationship Specialty Start Date End Date None, Provider, PCP - General UNKNOWN PHYSICIAN SPECIALTY 10/29/22 documented as of this encounter
--- OUTSIDE RECORDS SUMMARY | 2024-03-24 00:28 | XMS_ITS | Encounter Summary ---
Author Organization [facility] Health Address [address] [place] [address] Care Team Providers Care Supervisor Wrapping Room Name Role Phone Madeline Davis MD Primary Care Provider [phone] Encounter Details Date Type Department Care Team (Latest Contact Info) Description 09/14/2023 9:37 AM CDT - 09/14/2023 9:38 AM CDT Hospital Encounter [facility] MATERNAL/ EVALUATION UNIT [address] [facility]. [address] [place] [address] Manuel Morris MD [address] [facility] [address] [place] [address] Discharge Disposition: Home or Self Care Social [...] on file documented as of this encounter Progress Notes * Socorro Potter GC - 09/14/2023 11:17 AM CDT Images from the original note were not included. GENETICS CONSULTATION NOTE [facility] PATIENT: Loulou Chang DATE OF : 2005 DATE SEEN: 09/14/2023 SEEN BY: Socorro Potter MS, [facility] - Genetic Counselor PATIENT PROFILE: Ms. Chang is , 18 year old. She was accompanied by Dudley (FOB) and his mother.A total of 35 minutes was spent counseling this patient. CURRENT : Ms. Chang was referred for genetic counseling to review the high risk NIPT ([facility]) results. FAMILY HISTORY: Family history is remarkable for: Dudley's maternal half brother was born with cleft lip and palate. Per verbal report, all genetic studies were normal (results unavailable). Limitations of ultrasound screening for cleft lip and palatewere reviewed. Loulou's maternal half sister was born with a unilateral ear anomaly (underdeveloped outer ear). 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 Low risk for trisomies 13/18/21. 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 Fetus is predicted to be female. The natural history of this condition was reviewed including prenataland prognosis. diagnosis via CVS/amniocentesis or diagnosis via cord blood analysis were discussed. Patient declined testing but is interested in cytogenetic studies on cord blood at the time or delivery. PLAN: Ultrasound evaluation was performed. Please see separate ultrasound report. Following our discussion, patient declined CVS and amniocentesis. echocardiogram is recommended due to increased risk for cardiac defects with Silva syndrome. Couple desires cord blood be collected. Chromosome analysis is recommended on cord blood. NOTE TO OB: Loulou Chang desires chromosome analysis to be performed on cord blood at the time of delivery. Please check with your preferred lab to determine appropriate collection tube and amount. If deliveryoccurs at [facility] draw at least 3cc cord blood in green top sodium heparin tube. Order MUST be placed in baby's chart at that time. ORDER names: The test name is lab dependent. It is BEST for this to be discussed and planned ahead of time to ensure you have the correct orders and tubes available. If the OB has questions about the order, please call [phone] (Genetic Counselor). Chromosome analysis is recommended. Socorro Potter MS, [facility] Lead Genetic Counselor [facility] cc: Mike Archer MD documented in this encounter Plan of Treatment Not on file documented as of this encounter Visit Diagnoses Not on filedocumented in this encounter Care Teams Supervisor Wrapping Room Relationship Specialty Start Date End Date Madeline Davis MD [address] [facility] [address] [place] [address] PCP - General Family Medicine 07/31/18 documented as of this encounter
--- OUTSIDE RECORDS SUMMARY | 2024-03-24 00:29 | XMS_ITS | Encounter Summary ---
Author Organization [facility] Address [address] [place] [address]. [place], [place] [id number] [place] [id number] Care Team Providers Care Wringer Machine Operator Name Role Phone Madeline Davis MD Primary Care Provider [phone] Reason for Visit * Reason Comments Exposure Coronavirus (Covid-19) Encounter Details Date Type Department Care Team (Late st Contact Info) Description 10/30/2019 5:26 PM CDT - 10/30/2019 7:35 PM CDT Emergency [facility] [place] [address] Grace De Leon, Exposure Coronavirus (Covid-19) Discharge Disposition: Home or Self [...] suspected to have Coronavirus / COVID-19? Yes 10/30/2019 4:32 PM CDT documented as of this encounter Last Filed Vital Signs Vital Sign Reading Time Taken Comments Blood Pressure 134/72 10/30/2019 4:50 PM CDT Pulse 72 10/30/2019 4:50 PM CDT Temperature 36.5 ??C (97.7 ??F) 10/30/2019 4:50 PM CD T Respiratory Rate 18 10/30/2019 4:50 PM CDT Oxygen Saturation 97% 10/30/2019 4:50 PM CDT Inhaled Oxygen Concentration - - Weight 94 kg (207 lb 3.7 oz) 10/30/2019 4:50 PM CDT Height 162.6 cm (5' 4) 10/30/2019 4:50 PM CDT Body Mass Index 35.57 10/30/2019 4:50 PM CDT Body Mass Index Percentile 98.76% 10/30/2019 4:5 0 PM CDT Growth Chart: [facility] (Girls, 2- 20 Years) documented in this encounter Discharge Instructions * Discharge Instructions* Grace De Leon, DO - 10/30/2019 7:22 PM CDT Continue albuterol as needed for shortness of breath. Give tylenol (650mg every 4 hours) or ibuprofen (400mg every 6 hours) as needed for fevers or pain.If needed, you may alternate giving the tylenol [...] more, than cough syrup. You may give hsdv-das-dubnkoy benadryl or zyrtec as needed for sinus [...] breathing or is not tolerating oral fluids. COVID-19 Patient Information: Your child has fever, cough, or shortness of breath. Fever, cough, and shortness of breath may be due to infection with COVID-19 (coronavirus), but a variety of other viral illnesses can also cause these symptoms as well. Testing for COVID-19 is scarce and regulated by state and hospital guidelines. If your child does not meet the criteria for testing at this time, you should still take necessary precautions to avoid community spread of the illness. COVID-19 spreads more easily than the flu and may cause serious illness in certain groups of people. We cannot always predict who will have serious illness and we all share a responsibility in controlling its spread. Information from the AAP (https://www.healthychildren.org/[place]er/health- issues/conditions/chest-lungs/Pages/5255-Hqeeh-Djbzuyvfnpf.aspx) 2019 Novel Coronavirus (COVID-19) Human Coronaviruses are a family of viruses that usually cause illnesses like the common cold. Almost everyone gets one of these viruses at some point in their lives. Most of the time the illness only lasts for a short time. COVID-19: a new coronavirus It was discovered in February 2019 and has now spread throughout the world. As the virus spreads, we are seeing some people with mild illness, some who get very sick, and some who have . The reason health officials are concerned is because the virus is new, which makes it hard to predict how it will continue to affect people. Researchers and doctors are learning more about it every day, including exactly how it spreads and who is most at risk. Symptoms of COVID-19 Symptoms of COVID-19 can range from mild to severe and can include: Fever Cough Shortness of breath Who is at risk? According to the CDC, children do not seem to be at higher risk for getting COVID-19. However, somepeople are, including: Older adults People who have serious chronic medical conditions like: Heart disease, Diabetes, Lung disease, Suppressed immune systems How to protect your family There is currently no vaccine to prevent COVID-19, but there are a few things you can do to keep your family healthy: Wash your hands often with soap and water for at least 20 seconds. If soap and water are not available, use hand ordering machine operator. Look for one that is 60% or higher alcohol-based. Reduce close contact with others by practicing social distancing. This means staying home as much as possible and avoiding public places where close contact with others is likely. Keep your kids away from others who are sick or keep them home if they are ill. Teach kids to cough and sneeze into a tissue (make sure to throw it away after each use!) or to cough and sneeze into their arm or elbow, not their hands. Clean and disinfect your home as usual using regular household cleaning sprays or wipes. Wash stuffed animals or other plush toys, following bookkeeping teacher???s instructions in the warmest water possible and dry them completely. Avoid touching your face; teach your children to do the same. Avoid travel to highly infected areas. Follow local and state guidance on travel restrictions. If your child has been exposed to COVID-19, or you are concerned about your child???s symptoms, call your data administrator immediately. How to care for someone in your family with COVID-19 People who are mildly ill with COVID-19 are usually able to isolate at home during their illness. However, it may be recommended to take these additional steps: Separate family members with COVID-19 from others as much as possible. The person with the virus should stay in a specific room and away from other people in your home. Ideally, they should use a separate bathroom, if available. Limit visitors in the house. Call ahead before visiting the doctor. This will help them take steps to keep other people from getting infected or exposed. Wear a facemask. The CDC only recommends facemasks for people who have symptoms of COVID-19, not for people who are healthy. Healthcare workers and anyone taking care of someone with COVID-19 should wear facemasks. Avoid sharing personal household items. Don???t share dishes, drinking glasses, cups, eating utensils, towels, or bedding with other people or pets in the home. After using these items, they should be washed thoroughly with soap and water. Extra cleaning for all ???high-touch?? surfaces. These include counters, tabletops, doorknobs, bathroom fixtures, toilets, phones, keyboards, tablets, and bedside tables. Also, clean any surfaces that may have blood, stool, or body fluids on them. Use a household cleaning spray or wipes and followthe instructions on the label. Monitor symptoms. Call your doctor right away if the illness gets worse. Note: The [place] [employer] agrees with the World Health Organization about the use of ibuprofen during the COVID-19 pandemic. Right now, there is not enough evidence to recommend you avoid using ibuprofen, unless you have an underlying medical condition that makes ibuprofen less safe. Using acetaminophen is a reasonable and safe option. In children, the goal should be to improve their overall comfort, monitor their activity, look for signs of serious illness, and make sure they drink enough liquids. The AAP recommends parents talk with a data administrator about the correct dose before using any medication. Use a medication syringe or dropper to measure the correct amount because they are more reliable than a measuring spoon. Dealing with school and childcare closings In many communities, officials have decided to temporarily close schools and childcare centers to help slow the spread of the virus. If your children need to stay home due to the outbreak, try to keep their days as routine and scheduled as possible. Here are a few tips that can help: Read books with your child. It???s not only fun, but reading together strengthens your harper with your child AND helps their development. Make time for active play. Bring out the blocks, balls, jump ropes and buckets and let the creativity go. Play games that kids of all ages can play, like tag or duck duck goose. Let your kids make upnew games. Encourage older kids to make up a workout or dance to keep them moving. Keep an eye on media time. Whenever possible, play video games or go online with your child to keepthat time structured and limited. If kids are missing their school friends or other family, try video chats to stay in touch. Talking to children about COVID-19 There???s a lot of news coverage about the outbreak of COVID-19 and it can be overwhelming for parents and frightening to kids. The [place] [employer] encourages parents and others who work closely with children to filter information and talk about it in a way that their child can understand. These tips can help: Simple reassurance. Remind children that researchers and doctors are learning as much as they can, as quickly as they can, about the virus and are taking steps to keep everyone safe. Give them control. It???s also a great time to remind your children of what they can do to help - washing their hands often, coughing into a tissue or their sleeves, and getting enough sleep. Watch for signs of anxiety. Children may not have the words to express their worry, but you may seesigns of it. They may get cranky, be more clingy, have trouble sleeping, or seem distracted. Keep the reassurance going and try to stick to your normal routines. Monitor their media. Keep young children away from frightening images they may see on TV, social media, computers, etc. For older children, talk together about what they are hearing on the news and correct any misinformation or rumors you may hear. Be a good role model. COVID-19 doesn???t discriminate and neither should we. While COVID-19 [facility]in [facility], it doesn???t mean that having ancestry - or any other ancestry - makes someone more susceptible to the virus or more contagious. Stigma and discrimination hurt everyone by creating fear or anger towards others. When you show empathy and support to those who are ill, your children will too. Stay informed Families are encouraged to stay up to date about this situation as we learn more about how to prevent this virus from spreading in homes and in communities. Last Updated 06/12/2019 Source [employer] (Copyright ?? 2019) The information contained on heathychildren.org should not be used as a substitute for the medical care and advice of your data administrator. There may be variations in treatment that your data administrator may recommend based on individual facts and circumstances. documented in this encounter Medications at Time of Discharge albuterol sulfate HFA 108 (90 Base) MCG/ACT inhaler Inhale 2 puffs into the lungs every 4 (four) hours as needed for Wheezing or Shortness of breath. 1 each 08/28/2019 documented as of this encounter ED Notes * Grace De Leon DO - 10/30/2019 7:34 PM CDT Chief Complaint Chief Complaint Patient presents with ??? Exposure Coronavirus (Covid-19) History of Present Illness Pt here with mother and siblings for possible covid exposure. Pt has hx of asthma and uses albuterol nearly on a daily basis - per mom she does not want to bring them to the PCP because he travels out of the country a lot. Pt also c/o headache and body aches, with chest heaviness. Denies fevers, cough, n/v/d, decreased PO, or other complaints. Per mom pt was directly exposed to a friend with covid. Medical History ALLERGIES: No Known Allergies MEDICATIONS: [...] chills, fever and unexpected weight change. HENT: Negative for congestion, rhinorrhea, sore throat and trouble swallowing. Eyes: Negative for discharge. Respiratory: Positive for chest tightness and shortness of breath. Negative for cough. Cardiovascular: Negative for chest pain and palpitations. Gastrointestinal: Negative for abdominal pain, blood in stool, constipation, diarrhea, nausea and vomiting. Endocrine: Negative for polydipsia. Genitourinary: Negative for dysuria, flank pain, frequency, hematuria, menstrual problem, vaginal bleeding and vaginal discharge. Musculoskeletal: Positive for arthralgias and myalgias. Skin: Negative for pallor and rash. Neurological: Positive for headaches. Negative for dizziness, syncope and weakness. All other systems reviewed and are negative. Physical Exam Filed Vitals: 10/30/19 1650 BP: (!) 134/72 Pulse: 72 Resp: 18 Temp: 97.7 ??F (36.5 ??C) TempSrc: Oral SpO2: 97% Weight: 94 kg (207 lb 3.7 oz) Height: 5' 4 (1.626 m) Physical Exam Constitutional: She appears well-developed and well-nourished. No distress. HENT: Head: Normocephalic. Right Ear: Tympanic membrane and ear canal normal. Left Ear: Tympanic membrane and ear canal normal. Nose: Nose normal. Mouth/Throat: Oropharynx is clear and moist. No oropharyngeal exudate. Eyes: Conjunctivae and EOM are normal. Neck: Normal range of motion. Neck supple. Cardiovascular: Normal rate, regular rhythm, normal heart sounds and intact distal pulses. No murmur heard. Pulmonary/Chest: Effort normal and breath sounds normal. No respiratory distress. She has no wheezes. She has no rales. Abdominal: Soft. Bowel sounds are normal. She exhibits no distension. There is no tenderness. Lymphadenopathy: She has no cervical adenopathy. Neurological: She is alert. Skin: Skin is warm and dry. No rash noted. Nursing note and vitals reviewed. Diagnostic Studies / Procedures ELECTROCARDIOGRAMS: No results found for this visit on 10/30/19. LABORATORY STUDIES: No results found for this visit on 10/30/19. IMAGING STUDIES XR CHEST PORTABLE Final Result by User, [email or web address] (10/29 836) Examination: Chest Radiograph, 1 view Exam Date/Time: 10/30/2019 5:25 PM Reason For Exam: COVID exposure with respiratory symptoms Comparison: None Technique: Single AP view of the chest. Findings: Heart size is normal. Pulmonary vasculature is within normal limits. There is no large pleural effusion or pneumothorax. No focal infiltrate or consolidative change. Mild bilateral atelectasis is seen. ======== IMPRESSION: ======== 1. Mild bilateral atelectasis without definite consolidation. Follow-up PA and lateral views of the inspiration may be more sensitive for subtle abnormality if clinically indicated. Interpreted By: Herbie Navarro MD, 10/30/2019 6:00 PM ED Course / Medical Decision Making MDM Number of Diagnoses or Management Options Close exposure to 2019 novel coronavirus: Shortness of breath: Diagnosis management comments: Pt's exam normal. CXR WNL. Pt tested for covid, will call with results. Discussed symptomatic treatment, and recommended PCP visit due to frequent albuterol use. Amount and/or Complexity of Data Reviewed Clinical lab tests: ordered Tests in the radiology section of CPT??: ordered and reviewed Clinical Impression Close exposure to 2019 novel coronavirus (Primary) Shortness of breath Disposition: Discharge Grace De Leon DO 10/30/191942 Grace De Leon DO 10/30/191944 * Herbie Berry RN - 10/30/2019 4:51 PM CDT Pt to triage with complaint of SOB, cough, and headache. Positive Covid exposure. documented in this encounter Plan of Treatment Not on file documented as of this encounter Procedures Procedure Name Priority Date/Time Associated Diagnosis Comments CORONAVIRUS (COVID 19) Routine 10/30/2019 6:00 PM CDT XR CHEST PORTABLE STAT 10/30/2019 5:5 9 PM CDT documented in this encounter Results * CORONAVIRUS (COVID 19) [facility] (10/30/2019 6:00 PM CDT) CORONAVIRUS SARS COV 2 PCR (RESP) NOT DETECTED NOT DETECTED 11/02/2019 12:18 AM CDT [facility] Comment: A Not Detected (negative) test [...] providers and patients using the following websites: https://www.[facility]Genius.YouChe.com/home/Covid-19/HCP/NAAT/fact-sheet2 https://www.[facility]ius.YouChe.com/home/Covid-19/Patients/NAAT/ fact-sheet2 This test has been authorized by the FDA under an Emergency Use Authorization (EUA) for use by authorized laboratories. Due to the current public health emergency, [facility] is receiving a high volume of samples [...] about COVID-19 can be found at the [facility] website: www.[facility]YouChe.com/Covid19. Test performed at [facility] [address] [place], [place] ??[id number] Director: BHAVESH HENRIQUEZ DO,MPH 10/30/2019 6:00 PM CDT Grace De Leon DO MICROBIOLOGY - GENERAL ORD ERABLES Final Result [facility] [address] [address], * XR CHEST PORTABLE (10/30/2019 5:59 PM CDT) Anatomical Region Laterality Modality Chest Radiographic Penny ging 10/30/2019 6:00 PM CDT Impressions 10/30/2019 6:01 PM CDT IMPRESSION: ======== ?? 1. ??Mild bilateral atelectasis without definite consolidation. ??Follow-up PA and lateral views of the inspiration may be more sensitive for subtle abnormality if clinically indicated. Interpreted By: Herbie Navarro MD, 10/30/2019 6:00 PM Narrative 10/30/2019 6:01 PM CDT Examination: Chest Radiograph, 1 view Exam Date/Time: 10/30/2019 5:25 PM Reason For Exam: ??COVID exposure with respiratory symptoms ?? Comparison: None Technique: Single AP view of the chest. Findings: ??Heart size is normal. Pulmonary vasculature is within normal limits. There is no large pleural effusion or pneumothorax. No focal infiltrate or consolidative change. ??Mild bilateral atelectasis is seen. ======== Procedure Note Herbie Navarro MD - 10/30/2019 Examination: Chest Radiograph, 1 view Exam Date/Time: 10/30/2019 5:25 PM Reason For Exam: COVID exposure with respiratory symptoms Comparison: None Technique: Single AP view of the chest. Findings: Heart size is normal. Pulmonary vasculature is within normallimits. There is no large pleural effusion or pneumothorax. No focalinfiltrate or consolidative change. Mild bilateral atelectasis is seen. ======== IMPRESSION: ======== 1. Mild bilateral atelectasis without definite consolidation. Follow-upPA and lateral views of the inspiration may be more sensitive for subtleabnormality if clinically indicated. Interpreted By: Herbie Navarro MD, 10/30/2019 6:00 PM Jay Dietz MD GENERAL IMAGING Final Result documented in this encounter Visit Diagnoses Diagnosis Close exposure to 2019 novel coronavirus- Primary Shortness of breath documented in this encounter Care Teams Wringer Machine Operator Relationship Specialty Start Date End Date Madeline Davis MD [address] [address] PCP - General FAMILY PRACTICE 10/29/18 10/28/22 documented as of this encounter
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
--- OUTSIDE RECORDS SUMMARY | 2024-03-24 00:29 | XMS_ITS | Encounter Summary ---
Author Organization [facility] Address [address] [place] [address]. [place], [place] [address] [place] [address] Care Team Providers Care Animation Camera Operator Name Role Phone Madeline Davis MD Primary Care Provider [phone] Encounter Details Date Type Department Care Team (Latest Contact Info) Description 10/30/2019 Travel Social History Tobacco Use Types Packs/Day [...] on filedocumented in this encounter Care Teams Animation Camera Operator Relationship Specialty Start Date End Date Madeline Davis MD [address] [address] PCP - General FAMILY PRACTICE 10/29/18 10/28/22 documented as of this encounter
--- OUTSIDE RECORDS SUMMARY | 2024-03-24 00:29 | XMS_ITS | Encounter Summary ---
Author Organization [facility] Address [address] [place] [address]. [place], [place] [id number] [place] [address] Care Team Providers Care Precision Lens Grinder Apprentice Name Role Phone Madeline Davis MD Primary Care Provider [phone] Encounter Details Date Type Department Care Team (Latest Contact Info) Description 07/07/2019 Travel Social History Tobacco Use Types Packs/Day Years Used Date Smoking Tobacco: Never Smokeless Tobacco: Never Alcohol Use Standard Drinks/Week Comments No 0 (1 standard drink = 0.6 oz pur e alcohol) AUDIT-C Answer Date Recorded Frequency of Alcohol Consumption Never 10/29/2018 Average Number of Drinks Not on file 019 Frequency of Binge Drinking Not on file 11/2018 Comments Unknown Sex and Gender Information Value Date Recorded Sex Assigned at Not on file Legal Sex Female 1:39 AM CDT Gender Identity Not on file Sexual Orientation Not on file COVID-19 Exposure Response Date Recorded In the last month, have you been in contact with someone who was confirmed or suspected to have Coronavirus / COVID-19? No / Unsure 07/07/2019 8:09 PM CDT documented as of this encounter Plan of Treatment Not on file documented as of this encounter Visit Diagnoses Not on filedocumented in this encounter Care Teams Precision Lens Grinder Apprentice Relationship Specialty Start Date End Date Madeline Davis MD [address] [address] PCP - General FAMILY PRACTICE 10/29/18 10/28/22 documented as of this encounter
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
--- OUTSIDE RECORDS SUMMARY | 2024-03-24 00:29 | XMS_ITS | Encounter Summary ---
Author Organization [facility] Address [address] [place] [address]. [place], [place] [id number] [place] [address] Care Team Providers Care Driver Education Road Instructor Name Role Phone Madeline Davis MD Primary Care Provider [phone] Reason for Visit * Reason Comments Chemical Burn Encounter Details Date Type Department Care Team (Late st Contact Info) Description 07/07/2019 8:16 PM CDT - 07/07/2019 8:49 PM CDT Emergency [facility] [place] [address] Geronimo Case MD [address] [place] [address] [phone] Chemical Burn Discharge Disposition: Home or Self Care (Routine [...] Sign Reading Time Taken Comments Blood Pressure 102/78 07/07/2019 8:14 PM CDT Pulse 80 07/07/2019 8:14 PM CDT Temperature - - Respiratory Rate 16 07/07/2019 8:14 PM CDT Oxygen Saturation 99% 07/07/2019 8:14 PM CDT Inhaled Oxygen Concentration - - Weight 88.5 kg (195 lb) 07/07/2019 8:14 PM CDT Height 165.1 cm (5' 5) 07/07/2019 8:14 PM CDT Body Mass Index 32.45 07/07/2019 8:14 PM CDT Body Mass Index Percentile 97.61% 07/07/2019 8:1 4 PM CDT Growth Chart: [facility] (Girls, 2- 20 Years) documented in this encounter Discharge Instructions * Attachments The following attachments cannot be sent through Care Everywhere. * Hives Discharge Instructions (Algerian) documented in this encounter Medications at Time of Discharge diphenhydrAMINE 12.5 MG/5ML elixir Take 10 mLs (25 mg total) by mouth every 6 (six) hours as needed for Allergies. 118 mL 07/07/2019 0 hydrocortisone 1 % ointment Apply topically 2 (two) times daily for 5 days. 28 g 07/07/2019 0 documented as of this encounter ED Notes * Manny Graham RN - 07/07/2019 8:48 PM CDT PT follow up care discussed with PT and mother. PT and mother questions answered. PT and mother verbalized understanding. PT left ED with mother to home with self care. * Griffin Mak RN - 07/07/2019 8:42 PM CDT Mother here, switching places with aunt * Geronimo Case MD - 07/07/2019 8:21 PM CDT Chief Complaint Chief Complaint Patient presents with ??? Chemical Burn History of Present Illness 13 y/o female presenting with skin rash on the upper extremities. Rash is itchy along with burning sensation to her arms after using spic and span and bleach. Denies respiratory symptoms,scratchy throat. Unsure if it was fumes or liquid causing irritation. Patient denies any new detergents, no new toiletries, denies any insect bite. No fever. Medical History ALLERGIES: No Known Allergies MEDICATIONS: Prior to Admission medications Medication Sig Start Date End Date Taking? Authorizing Provider diphenhydrAMINE 12.5 MG/5ML elixir Take 10 mLs (25 mg total) by mouth every 6 (six) hours as neededfor Allergies. 07/07/19 07/12/19 Yes Geronimo Case MD hydrocortisone 1 % ointment Apply topically 2 (two) times daily for 5 days. 07/07/19 07/12/19 Yes Geronimo Case MD PAST MEDICAL HISTORY: History reviewed. No pertinent past medical history. PAST SURGICAL HISTORY: History reviewed. No pertinent surgical history. FAMILY HISTORY: No family history on file. SOCIAL HISTORY: Social History Tobacco Use ??? Smoking status: Never Smoker ??? Smokeless tobacco: Never Used Substance Use Topics ??? Alcohol use: No Frequency: Never ??? Drug use: No Review of Systems Review of Systems Constitutional: Negative for fever. HENT: Negative. Negative for congestion. Respiratory: Negative. Negative for cough and wheezing. Cardiovascular: Negative. Gastrointestinal: Negative. Negative for abdominal distention and abdominal pain. Musculoskeletal: Negative. Negative for arthralgias. Skin: hives Physical Exam Filed Vitals: 07/07/192013 BP: 102/78 Pulse: 80 Resp: 16 SpO2: 99% Weight: 88.5 kg (195 lb) Height: 5' 5 (1.651 m) Physical Exam Constitutional: She appears well-developed and well-nourished. Cardiovascular: Normal rate, regular rhythm and normal heart sounds. Pulmonary/Chest: Effort normal and breath sounds normal. Skin: Skin is warm. Capillary refill takes less than 2 seconds. Hives like rash around the forearm and right arm pits Blanchable. Diagnostic Studies / Procedures ELECTROCARDIOGRAMS: No results found for this visit on 07/07/19. LABORATORY STUDIES: No results found for this visit on 07/07/19. IMAGING STUDIES No orders to display ED Course / Medical Decision Making MDM Number of Diagnoses or Management Options Hives: Diagnosis management comments: 13 y/o presenting with Hives, likely due to local reaction to cleaning bleach. Patient is well appearing, no respiratory symptoms, no joint swelling or pain. Patient reported significant improving with tap water rinsing in the ER. - will give oral benadryl x once - discussed with the mother that Hives can recur, prn benadryl as for now Clinical Impression Hives (Primary) Disposition: Discharge Geronimo Case MD 07/07/192230 * Griffin Mak RN - 07/07/2019 8:15 PM CDT Pt ambulatory to ED complaining of having a rash and burning sensation to her arms after using spicand span and bleach. Denies difficulty breathing,scratchy throat. Unsure if it was fumes or liquid causing irritation. Has not rinsed areas off, has not taken meds. To ED with aunt Will have pt wash with soap and water when arriving to room documented in this encounter Plan of Treatment Not on file documented as of this encounter Visit Diagnoses Diagnosis Hives- Primary Urticaria, unspecified documented in this encounter Administered Medications Inactive Administered Medications - up to 3 most recent administrations Medication Order MAR Action Action Date Dose Rate Site diphenhydrAMINE (BENADRYL) 12.5 MG/5ML elixir 25 mg 25 mg, Oral, Once, 1 dose, On Beth 07/07/19 at 2029 Given 07/07/2019 8:29 PM CDT 25 mg documented in this encounter Active and Recently Administered Medications Times are shown in CDT. Scheduled Medication Order 07/05/2019 07/06/2019 07/07/2019 diphenhydrAMINE (BENADRYL) 12.5 MG/5ML elixir 25 mg (COMPLETED) 25 mg, Oral, Once, 1 dose, On Beth 07/07/19 at 2029 2028 (Given - Provid er: Manny Graham RN) documented in this encounter Care Teams Driver Education Road Instructor Relationship Specialty Start Date End Date Madeline Davis MD [address] [address] PCP - General FAMILY PRACTICE 10/29/18 10/28/22 documented as of this encounter
--- OUTSIDE RECORDS SUMMARY | 2024-03-24 00:29 | XMS_ITS | Encounter Summary ---
Author Organization [facility] Address [address] [place] [address]. [place], [place] [address] [place] [address] Care Team Providers Care Depalletizer Operator Name Role Phone Madeline Davis MD Primary Care Provider [phone] Encounter Details Date Type Department Care Team (Latest Contact Info) Description 08/28/2019 Travel Social History Tobacco Use Types Packs/Day [...] on filedocumented in this encounter Care Teams Depalletizer Operator Relationship Specialty Start Date End Date Madeline Davis MD [address] [address] PCP - General FAMILY PRACTICE 10/29/18 10/28/22 documented as of this encounter
--- OUTSIDE RECORDS SUMMARY | 2024-03-25 06:46 | XMS_ITS | Referral Summary ---
Author Organization [facility] Address [address] [place] [address] Care Team Providers Care Correctional Lieutenant Name Role Phone Madeline Davis MD Primary Care Provider [phone] Source Comments [facility],non-owned Affiliates and Associated Physician Practices is amultiple site organization consisting of ambulatory clinics and hospital sitesin [place], [place], [place] and [place]. This disclosure is being madepursuant to the Care Everywhere program and may not contain all information available regarding this patient. Last updated 17.[facility] Encounters Date Type Department Care Team Description 03/14/2024 10:26 AM CORPORATE LEGAL ASSISTANT - 03/14/2024 11:59 PM CORPORATE LEGAL ASSISTANT Hospital Encounter [facility] [address] [place] [address] Head, MD Edmar Perry Jeffrey D, MD Discharge Disposition: Home or Self Care 03/07/2024 10:18 AM CORPORATE LEGAL ASSISTANT - 03/07/2024 11:59 PM CORPORATE LEGAL ASSISTANT Hospital Encounter [facility] [address] [place] [address] Mounika Perry MD Discharge Disposition: Home or Self Care 02/29/2024 9:59 AM CORPORATE LEGAL ASSISTANT - 02/29/2024 11:59 PM CORPORATE LEGAL ASSISTANT Hospital Encounter [facility] [address] [place] [address] Mounika Perry MD Discharge Disposition: Home or Self Care 02/02/2024 Telephone [facility] [address] [place] [address] Rhea Florian Appointment 02/01/2024 Travel 02/01/2024 9:31 AM CORPORATE LEGAL ASSISTANT - 02/01/2024 11:59 PM CORPORATE LEGAL ASSISTANT Hospital Encounter [facility]ERNAL/ EVALUATION UNIT [address] [place] [address] [address] [place] [address] Manuel Morris MD Discharge Disposition: Home or Self Care 01/05/2024 Telephone [facility] MATERNAL/ EVALUATION UNIT [address] [place] [address] Socorro Stokes Scheduling 01/04/2024 Travel 01/04/2024 9:36 AM CDT - 01/04/2024 11:59 PM CDT Hospital Encounter [facility] MATERNAL/ EVALUATION UNIT 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 Estimated Date of [...] Comments Blood Pressure 123/57 02/29/2024 11:45 AM CORPORATE LEGAL ASSISTANT Pulse 97 02/29/2024 11:45 AM CORPORATE LEGAL ASSISTANT Temperature 37.2 ??C (98.9 ??F) 07/31/2018 6:33 PM CD T Respiratory Rate 18 02/29/2024 11:45 AM CORPORATE LEGAL ASSISTANT Oxygen Saturation - - Inhaled Oxygen Concentration - - Weight 112 kg (247 lb) 02/29/2024 11:45 AM CORPORATE LEGAL ASSISTANT Height 164 cm (5' 4.57) 07/31/2018 6:33 PM CDT Body Mass Index - - Plan of Treatment Not on file Procedures Procedure Name Priority Date/Time Associated Diagnosis Comments BIOPHYSICAL PROFILE WO NST Routine 03/14/2024 11:22 AM CORPORATE LEGAL ASSISTANT Encounter for ultrasound (HCC) Primigravida, antepartum (HCC) Obesity in (HCC) Asthma, unspecified asthma severity, unspecified whether complicated, unspecified whether persistent (HCC) BMI 40.0-44.9, adult (HCC) Family history of cleft lip and palate 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 38 weeks gestation of (HCC) BIOPHYSICAL PROFILE WO NST Routine 03/07/2024 10:36 AM CORPORATE LEGAL ASSISTANT Obesity in (HCC) 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 Asthma, unspecified asthma severity, unspecified whether complicated, unspecified whether persistent (HCC) Encounter for ultrasound (HCC) Primigravida, antepartum (HCC) BMI 40.0-44.9, adult (HCC) Family history of cleft lip and palate 37 weeks gestation of (HCC) SONOGRAM - COMPLETE Routine 02/29/2024 1 0:20 AM CORPORATE LEGAL ASSISTANT Supervision of high-risk of young primigravida (HCC) Obesity in (HCC) 32 weeks gestation of (HCC) 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 if undelivered Coding ====== Procedures ? [id number]: US Uterus Limited ? 06320: Biophysical Profile W/O NST TranZfinity PACS Anatomical Region Laterality Modality Other 03/14/2024 11:2 2 AM CORPORATE LEGAL ASSISTANT Priscilla Bacon MD [facility] ORDERABLES * SONOGRAM - COMPLETE (02/29/2024 10:20 AM CORPORATE LEGAL ASSISTANT) Only the most recent of3 resultswithin the [...] lb 10 oz EFW by ? Hadlock ([id number]) Head / Face / Neck Biometry: Cephalic [...] profile is recommended Coding ====== Procedures ? [id number]: [place] ? [address]: Biophysical Profile W NST TranZfinity PACS Anatomical Region Laterality Modality Other 02/29/2024 10:2 0 AM CORPORATE LEGAL ASSISTANT Manuel Morris MD [facility] ORDERABLES from Last 3 Months Care Teams Correctional Lieutenant Relationship Specialty Start Date End Date Madeline Davis MD [address] [facility] [address] [place] [address] PCP - General Family Medicine 07/31/18
--- OUTSIDE RECORDS SUMMARY | 2024-03-25 06:46 | XMS_ITS | Clinical Summary ---
Author Organization [facility] Address [address] [place] [address] Care Team Providers Care Cray Fishing Hand Name Role Phone Madeline Davis MD Primary Care Provider [phone] Source Comments [facility],non-owned Affiliates and Associated Physician Practices is amultiple site organization consisting of ambulatory clinics and hospital sitesin [place], [place], [place] and [place]. This disclosure is being madepursuant to the Care Everywhere program and may not contain all information available regarding this patient. Last updated 17.[facility] Allergies No known active allergies Medications Be aware that medications may not be up to date on this document. Always verify current medications with the patient. 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 [address] [place] [address] Head, MD Edmar Perry Jeffrey D, MD Discharge Disposition: Home or Self Care 03/07/2024 10:18 AM COMPUTER PROJECT MANAGER - 03/07/2024 11:59 PM COMPUTER PROJECT MANAGER Hospital Encounter [facility] [address] [place] [address] Mounika Perry MD Discharge Disposition: Home or Self Care 02/29/2024 9:59 AM COMPUTER PROJECT MANAGER - 02/29/2024 11:59 PM COMPUTER PROJECT MANAGER Hospital Encounter [facility] [address] [place] [address] Head, Mounika Mercer MD Discharge Disposition: Home or Self Care 02/02/2024 Telephone [facility] [address] [place] [address] Rhea Florian Appointment 02/01/2024 9:31 AM COMPUTER PROJECT MANAGER - 02/01/2024 11:59 PM COMPUTER PROJECT MANAGER Hospital Encounter [facility] MATERNAL/ EVALUATION UNIT [address] [place] [address] Manuel Morirs MD Discharge Disposition: Home or Self Care 02/01/2024 Travel 01/05/2024 Telephone [facility] MATERNAL/ EVALUATION UNIT [address] [place] [address] Socorro Stokes Scheduling 01/04/2024 9:36 AM CDT - 01/04/2024 11:59 PM CDT Hospital Encounter [facility] MATERNAL/ EVALUATION UNIT [address] [place] [address] Manuel Morris MD Discharge Disposition: Home or [...] Comments Blood Pressure 123/57 02/29/2024 11:45 AM COMPUTER PROJECT MANAGER Pulse 97 02/29/2024 11:45 AM COMPUTER PROJECT MANAGER Temperature 37.2 ??C (98.9 ??F) 07/31/2018 6:33 PM CD T Respiratory Rate 18 02/29/2024 11:45 AM COMPUTER PROJECT MANAGER Oxygen Saturation - - Inhaled Oxygen Concentration - - Weight 112 kg (247 lb) 02/29/2024 11:45 AM COMPUTER PROJECT MANAGER Height 164 cm (5' 4.57) 07/31/2018 6:33 [...] PROFILE WO NST Routine 03/14/2024 11:22 AM COMPUTER PROJECT MANAGER Encounter for ultrasound (HCC) Primigravida, antepartum (HCC) Obesity in (HCC) Asthma, unspecified asthma severity, unspecified whether complicated, unspecified whether persistent (HCC) BMI 40.0-44.9, adult (HCC) Family history of cleft lip and palate 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 38 weeks gestation of ([facility]) BIOPHYSICAL PROFILE WO NST Routine 03/07/2024 10:36 AM COMPUTER PROJECT MANAGER Obesity in (HCC) 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 Asthma, unspecified asthma severity, unspecified whether complicated, unspecified whether persistent (HCC) Encounter for ultrasound (HCC) Primigravida, antepartum (HCC) BMI 40.0-44.9, adult ([facility]) Family history of cleft lip and palate 37 weeks gestation of (HCC) SONOGRAM - COMPLETE Routine 02/29/2024 1 0:20 AM COMPUTER PROJECT MANAGER Supervision of high-risk of young primigravida (HCC) Obesity in (HCC) 32 weeks gestation of (HCC) 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 if undelivered Coding ====== Procedures ? [id number]: US Uterus Limited ? 62442: Biophysical Profile W/O NST T [facility] PACS Anatomical Region Laterality Modality Other 03/14/2024 11:2 2 AM COMPUTER PROJECT MANAGER Priscilla Bacon MD [facility] ORDERABLES * SONOGRAM - COMPLETE (02/29/2024 10:20 AM COMPUTER PROJECT MANAGER) Only the most recent of3 resultswithin the [...] lb 10 oz EFW by ? Hadlock ([id number]) Head / Face / Neck Biometry: Cephalic [...] profile is recommended Coding ====== Procedures ? 27679: [place] ? [address]: Biophysical Profile W NST Doorbot PACS Anatomical Region Laterality Modality Other 02/29/2024 10:2 0 AM COMPUTER PROJECT MANAGER Manuel Morris MD [facility] ORDERABLES from Last 3 Months Care Teams Cray Fishing Hand Relationship Specialty Start Date End Date Madeline Davis MD [address] [facility] [address] [place] [address] PCP - General Family Medicine 07/31/18
--- OUTSIDE RECORDS SUMMARY | 2024-03-25 06:47 | XMS_ITS | Encounter Summary ---
Author Organization [facility] Address [address] [facility] [place] [address] Care Team Providers Care Glass Artist Name Role Phone Madeline Davis MD Primary Care Provider [phone] Reason for Visit * Reason Comments Ultrasound Encounter Details Date Type Department Care Team (Latest Contact Info) Description 09/14/2023 9:39 AM CDT - 09/14/2023 11:59 PM CDT Hospital Encounter [facility] MATERNAL/ EVALUATION UNIT [address] [facility] [place] [address] Manuel Morris MD [address] [facility] [address] [place] [address] Discharge Disposition: Home or Self Care Social [...] AM CDT Narrative 09/14/2023 11:33 AM CDT ?[facility] ? [facility] [place] [facility] ?PHONE: ??FAX: Pat. Name: ?EMERSON CHANG Pat. No: ?[id number] Study Date: ?? 09/14/2023 ??10:41am , Age: ? 2005, 18 Pregnancies: ?? 1, Para 0 Height: ? 64 in Weight: ? 244 lb LMP: ?Unknown GA by US: ? 13w3d ?? ANGUS: 03/18/2024 GA Selected: ??12w6d (Outside Scan) ANGUS: ?03/22/2024 Referring MD: Mike Archer MD Service Delivery Management Consultant: ??Cara Garza RDMS CPT4: ? 13956,75211 BMI: ?41.88 Hist/Ind: ? 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 GROWTH EVALUATION Measurement ??GA ? Range ? Srce %for GA Ratios ----- ---- ------- CRL ??7.4 cm 13w3d ([id number]) Hadl CRL 77% GA for sonogram 13w3d ([id number]) based on (CRL) Avg ? Markers for [...] Signature> ??09/14/2023 11:32am R Geremias Klein MD [facility] ORDERABLES documented in this encounter Visit Diagnoses Diagnosis Abnormal genetic test during - Primary Obesity in (HCC) Obesity complicating , childbirth, or the puerperium, unspecified as to episode of care or not applicable Nuchal translucency of fetus on ultrasound (HCC) documented in this encounter Care Teams Glass Artist Relationship Specialty Start Date End Date Madeline Davis MD [address] [facility] [address] [place] [address] PCP - General Family Medicine 07/31/18 documented as of this encounter
--- OUTSIDE RECORDS SUMMARY | 2024-03-25 06:47 | XMS_ITS | Encounter Summary ---
Author Organization [facility] Address [address] [place] [address] Care Team Providers Care Customs Brokerage Manager Name Role Phone Madeline Davis MD Primary Care Provider [phone] Encounter Details Date Type Department Care Team [...] on filedocumented in this encounter Care Teams Customs Brokerage Manager Relationship Specialty Start Date End Date Madeline Davis MD [address] [place] [address] [address] [place] [address] PCP - General Family Medicine 07/31/18 documented as of this encounter
--- OUTSIDE RECORDS SUMMARY | 2024-03-25 06:47 | XMS_ITS | Encounter Summary ---
Author Organization [facility] Address [address] [place] [address]. [place], [place] [address] [place] [address] Care Team Providers Care Construction Or Leak Gang Laborer Name Role Phone None, Provider MD Primary Care Provider Unavaila ble Reason for Visit * Reason Comments Pleuritic Chest Pain Encounter Details Date Type Department Care Team (Late st Contact Info) Description 11/18/2023 4:34 PM CDT - 11/18/2023 6:36 PM CDT Emergency [facility] Emergency [place], [place] [id number] Rhianna Peres, CLAMP REMOVER [address] [place] [address] Pleuritic Chest Pain Discharge Disposition: Home [...] Not Caused by the Heart Discharge Instructions (Citizen Of [place]) * Hypokalemia (Citizen Of [place]) documented in this encounter Medications at Time [...] 11/18/[address] [facility] [address] Test Date: 2023-11-18 Pat Name: LOULOU CHANG Department: 41 Room: Gender: Female Director Of Midwifery/Staff Midwife: [id number] : 2005 Requested By: RHIANNA PERES Order Number: [id number] Reading MD: Measurements Intervals [place] Rate: 100 P: 49 CO: 132 QRS: 37 QRSD: 84 T: 15 [...] and hypokalemia diagnosis. Encouraged to follow-up with REVENUE COLLECTOR without fail. Patient also aware that I [...] CDT The patient reports to the ED accountant machine processing squeezing chest pain when she takes a [...] URINE CLEAN CATCH 11/18/2023 6:10 PM CDT [facility] SPECIAL REQUESTS NO SPECIAL REQUEST 11/18/2023 6:10 PM CDT [facility] CULTURE RESULT NO GROWTH 2 DAYS 11/20/2023 7:42 AM CDT [facility] URINE SPECIMEN OBTAINED BY CLEAN CATCH PROCEDURE / Unknown 11/18/2023 4:58 PM CDT 11/18/2023 7:30 PM CDT Rhianna Peres NP MICROBIOLOGY - GENERAL ORDERAB LES Final Result [facility] [address] [place] [id number], * CORONAVIRUS (COVID 19) (11/18/2023 4:58 PM CDT) CORONAVIRUS SARS COV 2 RNA NEGATIVE NEGATIVE 11/18/2023 5:46 PM CDT [facility] Comment: NEGATIVE RESULTS DO NOT RULE [...] SPECIMEN TYPE NASAL 11/18/2023 4:48 PM CDT [facility] NASAL STRUCTURE / Unknown 11/18/2023 4:58 PM CDT Rhianna Peres CLAMP REMOVER MICROBIOLOGY - GENERAL ORDERAB LES Final Result Performing Organization Address [facility]/ZIP Co de Phone Number [facility] [address] [place] [address], * Quantitative HCG (11/18/2023 4:58 PM CDT) Pathologist [facility] HCG QUANTITATIVE 13,082 MIU/ML 11/18/19 6:00 PM CDT [facility] Comment: WEEKS OF ? REFERENCE RANGES Non- [...] NP LABORATORY Final Result Performing Organization Address [facility] de Phone Number [facility] [address] [place] [address], [place] [phone] * (ABNORMAL) URINALYSIS (11/18/2023 4:58 PM CDT) SPECIMEN TYPE URINE CLEAN CATCH 11/18/2023 4:57 PM CDT [facility] COLOR (U) YELLOW 11/18/2023 5:33 PM CDT [facility] TRANSPARENCY TURBID 11/18/2023 5:33 PM CDT [facility] SPECIFIC GRAVITY (U) 1.026 1.001 - 1.030 11/18/2023 5:33 PM CDT [facility] U PH 6.0 5.0 - 9.0 11/18/2023 5:33 PM CDT [facility] LEUKOCYTES (U) 75(A) NEGATIVE 11/18/2023 5:33 PM CDT [facility] NITRITES NEGATIVE NEGATIVE 11/18/2023 5:33 PM CDT [facility] PROTEIN RANDOM (U) 20 <30 MG/DL 11/18/2023 5:33 PM CDT [facility] GLUCOSE (U) NORMAL NORMAL MG/DL 11/18/2023 5:33 PM CDT [facility] KETONES MG/DL (U) NEGATIVE NEGATIVE MG/DL 11/18/2023 5:33 PM CDT [facility] UROBILINOGEN 2.0(A) NORMAL MG/DL 11/18/2023 5:33 PM CDT [facility] BILIRUBIN (U) NEGATIVE NEGATIVE MG/DL 11/18/2023 5:33 PM CDT [facility] BLOOD (U) NEGATIVE NEGATIVE 11/18/2023 5:33 PM CDT [facility] MUCUS RARE /LPF 11/18/2023 5:33 PM CDT [facility] WBC/HPF 10(H) <6 /HPF 11/18/2023 5:33 PM CDT [facility] RBC/HPF 4 <6 /HPF 11/18/2023 5:33 PM CDT [facility] SQUAMOUS EPITHELIALS MODERATE /HPF 11/18/2023 5:33 PM CDT [facility] URINE SPECIMEN OBTAINED BY CLEAN CATCH PROCEDURE / Unknown 11/18/2023 4:58 PM CDT Rhianna Peres CLAMP REMOVER URINE ORDERABLES Final Result Performing Organization Address City/[facility]/ZIP Co de Phone Number [facility] [address] [place] [address], [place] [phone] * TROPONIN, QUANT (11/18/2023 4:58 PM CDT) [facility] TROPONIN I HIGH SENSITIVITY <3 <54 ng/L 11/18/2023 5:49 PM CDT [facility] Comment: HIGH DOSES OF BIOTIN, TROPONIN-SPECIFIC AUTOANTIBODIES, AND ANTIBODY THERAPY CONTAINING HAMA MAY INTERFERE WITH THIS TEST RESULT. CORRELATION TO CLINICAL HISTORY AND PRESENTATION RECOMMENDED. 11/18/2023 4:58 PM CDT Rhianna Peres CLAMP REMOVER LABORATORY Final Result Performing Organization Address City/[facility]/ZIP Co de Phone Number [facility] [address] [place] [address], [place] [phone] * (ABNORMAL) COMPREHENSIVE METABOLIC PANEL (11/18/2023 4:58 PM CDT) Pathologist [facility] GLUCOSE 97 70 - 99 MG/DL 11/18/2023 5:49 PM CDT [facility] BUN 6(L) 7 - 18 MG/DL 11/18/2023 5:49 PM CDT [facility] CREATININE S/P/B 0.48(L) 0.55 - 1.02 MG/DL 11/18/2023 5:49 PM CDT [facility] SODIUM S/P/B 140 136 - 145 MMOL/L 11/18/2023 5:49 PM CDT [facility] POTASSIUM S/P/B 3.3(L) 3.5 - 5.1 MMOL/L 11/18/2023 5:49 PM CDT [facility] CHLORIDE S/P/B 110 97 - 115 MMOL/L 11/18/2023 5:49 PM CDT [facility] CO2 22.4 21 - 32 MMOL/L 11/18/2023 5:49 PM CDT [facility] CALCIUM S/P/B 8.9 8.5 - 10.1 MG/DL 11/18/2023 5:49 PM CDT [facility] BILIRUBIN TOTAL S/P/B 0.3 0.2 - 1.1 MG/DL 11/18/2023 5:49 PM CDT [facility] Comment: THIS ASSAY IS NOT RECOMMENDED FOR PATIENTS UNDERGOING TREATMENT WITH ELTROMBOPAG DUE TO THE POTENTIAL FOR FALSELY ELEVATED RESULTS. TOTAL PROTEIN S/P/B 6.5 6.4 - 8.2 G/DL 11/18/2023 5:49 PM CDT [facility] ALBUMIN S/P/B 2.8(L) 3.4 - 5.0 G/DL 11/18/2023 5:49 PM CDT [facility] AST 15 15 - 37 U/L 11/18/2023 5:49 PM CDT [facility] ALT 18 14 - 55 U/L 11/18/2023 5:49 PM CDT [facility] ALKALINE PHOSPHATASE S/P/B 94 50 - 136 U/L 11/18/2023 5:49 PM CDT [facility] ANION GAP 7.6 2 - 10 MMOL/L 11/18/2023 5:49 PM CDT [facility] BUN CREATININE RATIO 12.5 6 - 26 11/18/2023 5:49 PM CDT [facility] A/G RATIO 0.8(L) 1.0 - 2.0 RATIO 11/18/2023 5:49 PM CDT [facility] GFR ESTIMATE >90 >90 ML/MIN/1.7 3 M2 11/18/2023 5:49 PM CDT [facility] Comment: NOTE: eGFR is not calculated for patients <18 years of age. This is an estimated GFR calculation using the new CKD EPI creatinine equation without race and so does not require a correction factor for race. This estimated GFR should not be used for calculating drug doses. 11/18/2023 4:58 PM CDT us Rhianna Peres NP LABORATORY Final Result [facility] [address] [place] [address], * (ABNORMAL) CBC W/DIFF AUTOMATED (11/18/2023 4:58 PM CDT) WBC 10.02 4.5 - 13.0 x10'3/uL 11/18/2023 6:04 PM CDT [facility] RBC 3.51(L) 4.20 - 5.40 x10'6/uL 11/18/2023 6:04 PM CDT [facility] HGB 10.1(L) 12.0 - 16.0 G/DL 11/18/2023 6:04 PM CDT [facility] HCT 30.5(L) 38.0 - 48.0 % 11/18/2023 6:04 PM CDT [facility] MCV 86.9 81.0 - 99.0 FL 11/18/2023 6:04 PM CDT [facility] MCH 28.8 27.0 - 31.0 PG 11/18/2023 6:04 PM CDT [facility] MCHC 33.1 32.0 - 36.0 G/DL 11/18/2023 6:04 PM CDT [facility] RDW 12.9 11.5 - 14.5 % 11/18/2023 6:04 PM CDT [facility] PLT 308 130 - 400 x10'3/uL 11/18/2023 6:04 PM CDT [facility] MPV 9.7 9.3 - 12.2 FL 11/18/2023 6:04 PM CDT [facility] DIFFERENTIAL TYPE AUTOMATED DIFFERENTIAL 11/18/2023 6:04 PM CDT [facility] NEUTROPHILS % 75.8 % 11/18/2023 6:04 PM CDT [facility] LYMPHOCYTES % 14.4 % 11/18/2023 6:04 PM CDT [facility] MONOCYTES % 6.6 % 11/18/2023 6:04 PM CDT [facility] EOSINOPHILS 1.9 % 11/18/2023 6:04 PM CDT [facility] BASOPHILS 0.3 % 11/18/2023 6:04 PM CDT [facility] IMMATURE GRANS % 1.0 % 11/18/19 6:04 PM CDT [facility] ABS. NEUTROPHILS 7.60 1.80 - 8.00 x10'3/uL 11/18/2023 6:04 PM CDT [facility] ABS. LYMPHOCYTES 1.44 1.20 - 5.20 x10'3/uL 11/18/2023 6:04 PM CDT [facility] ABS. MONOCYTES 0.66 0.24 - 0.86 x10'3/uL 11/18/2023 6:04 PM CDT [facility] ABS. EOSINOPHILS 0.19 0.04 - 0.36 x10'3/uL 11/18/2023 6:04 PM CDT [facility] ABS. BASOPHILS 0.03 0.01 - 0.08 x10'3/uL 11/18/2023 6:04 PM CDT [facility] ABS. IMMATURE GRANULOCYTES 0.10 0.00 - 0.49 x10'3/uL 11/18/2023 6:04 PM CDT [facility] 11/18/2023 4:58 PM CDT Rhianna Peres NP LABORATORY Final Result [facility] [address] [place] [address], * (ABNORMAL) POCT urine (11/18/2023 4:57 PM CDT) URINE HCG TEST POSITIVE(A ) Internal Control: VALID Rhianna Peres NP POINT OF CARE TEST ORDERABLES Final Result * ECG 12 lead (11/18/2023 4:41 PM CDT) 11/18/2023 4:41 PM CDT Narrative [facility] - 11/18/2023 10:22 PM CDT ?[facility] ? [address], [place] ? Test Date: ?2023-11-18 Pat Name: ? LOULOU CHANG ? Department: ?? 41 ? Room: ? EXAM13 Gender: ? Female ? Director Of Midwifery/Staff Midwife: ?? [id number] : ?2005 ? Requested By: RHIANNA PERES Order Number: [id number] ? Reading MD: ?? Alexander Hushion ? Measurements Intervals ?[place] ? Rate: ? 100 ?P: ?49 CO: ? 132 ?QRS: ?37 QRSD: ? 84 ? T: ?15 QT: ? 330 ? QTc: ?427 ? Interpretive Statements SINUS TACHYCARDIA NONSPECIFIC T-WAVE ABNORMALITY ABNORMAL RHYTHM ECG No previous ECG available for comparison Other ischemic changes, not STEMI Preliminary EKG Interpretation by Loida Elizabeth NP Procedure Note Alexander Reyez MD - 11/18/[address] [facility] [address] Test Date: 2023-11-18 Pat Name: LOULOU CHANG Department: 41 Room: [facility] Gender: Female Director Of Midwifery/Staff Midwife: [id number] : 2005 Requested By: RHIANNA PERES Order Number: [id number] Reading MD: Alexander Reyez Measurements Intervals [place] Rate: 100 P: 49 CO: 132 QRS: 37 QRSD: 84 T: 15 QT: 330 QTc: 427 Interpretive Statements SINUS TACHYCARDIA NONSPECIFIC T-WAVE ABNORMALITY ABNORMAL RHYTHM ECG No previous ECG available for comparison Other ischemic changes, not STEMI Preliminary EKG Interpretation by Loida Elizabeth NP us Rhianna Peres NP ECG ORDERABLES Final Result [facility] documented in this encounter Visit Diagnoses Diagnosis [...] documented as of this encounter Care Teams Construction Or Leak Gang Laborer Relationship Specialty Start Date End Date None, Provider, PCP - General UNKNOWN PHYSICIAN SPECIALTY 10/29/22 documented as of this encounter
--- OUTSIDE RECORDS SUMMARY | 2024-03-25 06:47 | XMS_ITS | Clinical Summary ---
Author Organization [facility] Address [address] [place] [address]. [place] [address] [place] [address] Care Team Providers Care Shop Repairer Name Role Phone None, Provider MD Primary [...] complete this topic Insurance THOMAS Care Teams Shop Repairer Relationship Specialty Start Date End Date None, Provider, PCP - General UNKNOWN PHYSICIAN SPECIALTY 10/29/22
--- OUTSIDE RECORDS SUMMARY | 2024-03-25 06:47 | XMS_ITS | Encounter Summary ---
Author Organization [facility] Address [address] [place] [address]. [place], [place] [address] [place] [address] Care Team Providers Care Firefighting Equipment Specialist Name Role Phone Madeline Davis MD Primary Care Provider [phone] Reason for Visit * Reason Comments Insect Bite Encounter Details Date Type Department Care Team (Late st Contact Info) Description 11/03/2019 9:03 PM CDT - 11/03/2019 9:28 PM CDT Emergency [facility] [place] [address] Ted Mills MD [address] [place] [address]. [place] [phone] Insect Bite Discharge Disposition: Home or Self [...] 11/03/2019 8:1 8 PM CDT Growth Chart: [facility] (Girls, 2- 20 Years) documented in this encounter Discharge Instructions * Attachments The following attachments cannot be sent through Care Everywhere. * Bedbugs (Danish) documented in this encounter Medications at Time [...] Primary documented in this encounter Care Teams Firefighting Equipment Specialist Relationship Specialty Start Date End Date Madeline Davis MD [facility] [address] [address] PCP - General FAMILY PRACTICE 10/29/18 10/28/22 documented as of this encounter
--- OUTSIDE RECORDS SUMMARY | 2024-03-25 06:47 | XMS_ITS | Encounter Summary ---
Author Organization [facility] Address [address] [facility] [place] [address] Care Team Providers Care Telehealth Nurse Educator Name Role Phone Madeline Davis MD Primary Care Provider [phone] Reason for Referral * (Routine) - Open Specialty Diagnoses / Procedures Referred By Josemanuel silver Referred To Contact Diagnoses Abnormal chromosomal and genetic finding on screening of mother Procedures SONOGRAM - COMPLETE Manuel Morris MD [address] [address] Referral ID Status Reason Start Date Expiration Date Visits Re quested Visits Authorized [id number] Open 12/31/2023 12/30/2024 1 1 * (Routine) - Open Specialty Diagnoses / Procedures Referred By Josemanuel silver Referred To Contact Diagnoses Abnormal chromosomal and genetic finding on screening of mother Procedures SONOGRAM - COMPLETE Manuel Morris MD [address] [address] Referral ID Status Reason Start Date Expiration Date Visits Re quested Visits Authorized [id number] Open 12/31/2023 12/30/2024 1 1 Encounter Details Date Type Department Care Team (Latest Contact Info) Description 01/04/2024 9:36 AM CDT - 01/04/2024 11:59 PM CDT Hospital Encounter [facility] MATERNAL/ EVALUATION UNIT 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 - [place] ?M[facility] and Care Center ?PHONE: ??FAX: Pat. Name: ?EMERSON CHANG. No: ?[id number] Study Date: ?? 01/04/2024 ??10:10am , Age: ? 2005, 18 Pregnancies: ?? 1, Para 0 Height: ? 64 in Weight: ? 244 lb LMP: ?Unknown GA by Base: ?? 28w6d ?? ANGUS: 03/22/2024 GA by US: ? 30w1d ?? ANGUS: 03/13/2024 GA Selected: ??28w6d (From [facility]) ANGUS: ?03/22/2024 Referring MD: Mike Archer MD Transfusion Aide: ??Staci Troy, FINN, RVT, RDCS CPT4: ? 15399 BMI: ?41.88 Hist/Ind: ? 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 GROWTH EVALUATION Measurement ??GA ? Range ? Srce %for GA Ratios ----- ---- ------- BPD ??7.5 cm 30w0d (45n9p-39x2b) Hadl BPD 74% FL/BPD 0.76 (0.71 - 0.87) HC ??28.5 cm 31w2d (19t1c-75c2y) Hadl HC ??86% FL/AC ??0.22 (0.20 - 0.24) AC ??25.4 cm 29w4d (60w4b-52w5u) Hadl AC ??67% HC/AC ??1.12 (0.99 - 1.18) FL ?? 5.7 cm 29w6d (66m5q-70f3z) Hadl FL ??65% CI ? 0.73 (0.70 - 0.86) HL ?? 5.4 cm 31w2d (95g6w-92i5q) Mian HL ??91% GA for sonogram 30w1d (58y4o-77h2b) ?? 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
--- OUTSIDE RECORDS SUMMARY | 2024-03-25 06:47 | XMS_ITS | Encounter Summary ---
Author Organization [facility] Address [address] [address] [facility] [address] [place] [address] Care Team Providers Care Brick Offbearer Name Role Phone Madeline Davis MD Primary Care Provider [phone] Encounter Details Date Type Department Care Team [...] on filedocumented in this encounter Care Teams Brick Offbearer Relationship Specialty Start Date End Date Madeline Davis MD [address] [place] [address] [address] [place] [address] PCP - General Family Medicine 07/31/18 documented as of this encounter
--- OUTSIDE RECORDS SUMMARY | 2024-03-25 06:47 | XMS_ITS | Encounter Summary ---
Author Organization [facility] Address [address] [place] [place] [address] Care Team Providers Care Security Police Name Role Phone Madeline Davis MD Primary Care Provider [phone] Reason for Referral * (Routine) - Open Specialty Diagnoses / Procedures Referred By Josemanuel silver Referred To Contact Diagnoses Abnormal chromosomal and genetic finding on screening of mother Encounter for follow-up ultrasound of anatomy (HCC) Procedures SONOGRAM - COMPLETE Manuel Morris MD [address] [address] Referral ID Status Reason Start Date Expiration Date Visits Re quested Visits Authorized [id number] Open 12/04/2023 12/03/2024 1 1 * (Routine) - Open Specialty Diagnoses / Procedures Referred By Josemanuel silver Referred To Contact Diagnoses Abnormal chromosomal and genetic finding on screening of mother Encounter for follow-up ultrasound of anatomy (HCC) Procedures SONOGRAM - COMPLETE Manuel Morris MD [address] [place] [address] Referral ID Status Reason Start Date Expiration Date Visits Re quested Visits Authorized [id number] Open 12/04/2023 12/03/2024 1 1 Reason for Visit * Reason Comments Ultrasound Encounter Details Date Type Department Care Team (Late st Contact Info) Description 12/07/2023 10:18 AM CDT - 12/07/2023 11:59 PM CDT Hospital Encounter [facility] MATERNAL/ EVALUATION UNIT 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 - [place] ?Maternal and Care Center ?PHONE: ??FAX: Pat. Name: ?LOULOU CHANG. No: ?[id number] Study Date: ?? 12/07/2023 ??10:49am , Age: ? 2005, 18 Pregnancies: ?? 1, Para 0 Height: ? 64 in Weight: ? 244 lb LMP: ?Unknown GA by Base: ?? 24w6d ?? ANGUS: 03/22/2024 GA by US: ? 25w5d ?? ANGUS: 03/16/2024 GA Selected: ??24w6d (From [facility]) ANGUS: ?03/22/2024 Referring MD: Mike Archer MD Heavy Mobile Equipment Repairer: ??Mimi Madison, FINN CPT4: ? [address] BMI: ?41.88 Hist/Ind: ? 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 GROWTH EVALUATION Measurement ??GA ? Range ? Srce %for GA Ratios ----- ---- ------- BPD ??6.3 cm 25w3d (48v4h-84b4h) Hadl BPD 64% FL/BPD 0.79 (0.71 - 0.87) HC ??23.7 cm 25w5d (99r3i-46t2d) Hadl HC ??62% FL/AC ??0.23 (0.20 - 0.24) AC ??21.4 cm 25w6d (60s1f-62k7k) Hadl AC ??72% HC/AC ??1.11 (1.02 - 1.21) FL ?? 5.0 cm 26w5d (73k0h-95x3l) Hadl FL ??87% CI ? 0.74 (0.70 - 0.86) HL ?? 4.7 cm 27w5d (95u5s-64s0y) Mian HL ??>95 GA for sonogram 25w5d (98e9z-38n8b) ?? 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
--- OUTSIDE RECORDS SUMMARY | 2024-03-25 06:47 | XMS_ITS | Encounter Summary ---
Author Organization [facility] Address [address] [place] [address]. [place], [place] [address] [place] [address] Care Team Providers Care Flight Controls Engineer Name Role Phone Madeline Davis MD Primary Care Provider [phone] Encounter Details Date Type Department Care Team [...] on filedocumented in this encounter Care Teams Flight Controls Engineer Relationship Specialty Start Date End Date Madeline Davis MD [address] [address] PCP - General FAMILY PRACTICE 10/29/18 10/28/22 documented as of this encounter
--- OUTSIDE RECORDS SUMMARY | 2024-03-25 06:47 | XMS_ITS | Encounter Summary ---
Author Organization [facility] Address [address] [facility] [place] [address] Care Team Providers Care Phosphatic Fertilizer Supervisor Name Role Phone Madeline Davis MD Primary Care Provider [phone] Reason for Visit * Reason Onset Date Comments Scheduling 01/05/2024 Encounter Details Date Type Department Care Team (Late Contact Info) Description 01/05/2024 Telephone [facility] MATERNAL/ EVALUATION UNIT [address] [place] [address]. [address] [place] [address] Socorro Stokes Scheduling Social History Tobacco Use [...] CDT Contacted patient to schedule appointment with [facility]. (In basket) documented in this encounter Plan of Treatment Not on file documented as of this encounter Visit Diagnoses Not on filedocumented in this encounter Care Teams Phosphatic Fertilizer Supervisor Relationship Specialty Start Date End Date Madeline Davis MD [address] [place] [address] [address] [place] [address] PCP - General Family Medicine 07/31/18 documented as of this encounter
--- OUTSIDE RECORDS SUMMARY | 2024-03-25 06:47 | XMS_ITS | Encounter Summary ---
Author Organization [facility] Address [address] [place] [address] Care Team Providers Care Clinical Psychology Teacher Name Role Phone Madeline Davsi MD Primary Care Provider [phone] Reason for Visit * Reason Comments Lower [...] 07/31/2018 9:00 PM CDT Emergency ER at [address] [address] Mayela Marx MD [address] [place] [address] [place] [address] Pain of right lower extremity; Sprain of [...] 07/31/2018 6:3 3 PM CDT Growth Chart: [facility] (Girls, 2- 20 Years) documented in this [...] correct position. DISCHARGE INSTRUCTIONS: Call your child's appointment setter if: ?? Any part of your child's [...] them during your child's visits. ?? Copyright Curse 2019 Information is for End User's use only and may not be sold, redistributed or otherwise used for commercial purposes. All illustrations and images included in CareNotes?? are the copyrighted property of AEgnyte.Akinkon. or Dinda.com.br The above information is an computer aide only. It is not intended as medical [...] pain. You may need to see an student finance specialist or a physical therapist. Write down [...] plan if you are overweight. ?? Copyright Curse 2019 Information is for End User's use only and may not be sold, redistributed or otherwise used for commercial purposes. All illustrations and images included in CareNotes?? are the copyrighted property of [employer]it[employer]Snap[employer]. or Dinda.com.br The above information is an computer aide only. It is not intended as medical advice for individual conditions or treatments. Talk to your doctor, nurse or pharmacist before following any medical regimen to see if it is safe and effective for you. documented in this encounter ED Notes * Lani Alanis RN - 07/31/2018 9:14 PM CDT [facility] contacted for ride home confirmation # [phone] * Lani Alanis RN - 07/31/2018 8:47 PM CDT Pt alert and calm at time of discharge. VSS. Discharge plan for home reviewed with parent. Follow-up instructions reviewed. Given opportunity for questions. Family member verbalized understanding. Ptexited ER with family. * Mayela Marx - 07/31/2018 7:51 PM CDT Provider contact with the patient: 07/31/2018 7:51 PM [facility] Loulou Chang [id number] History Chief Complaint Patient presents with ??? [...] by physician. I have read the resident/medical student/AMBULATORY SERVICE REPRESENTATIVE history. Unless appended by me below, I [...] all negative except as noted in resident/medical student/AMBULATORY SERVICE REPRESENTATIVE and attending HPI/ROS. Gen: negative Skin: negative HEENT: negative CV: negative Resp: negative GI: negative Musculoskeletal: + R knee swelling and pain Neurologic: negative Psychiatric: negative Physical Exam I have reviewed the resident/medical student/AMBULATORY SERVICE REPRESENTATIVE physical exam. Unless appended by me below, [...] Madeline Davis MD [address] [facility] [address] [facility] [address] Schedule an appointment as soon as possible for a visit in 2 weeks If symptoms persist [facility] [place] [id number] [facility] [address] Call in 2 weeks If symptoms worsen [...] hours a day, from any computer, through Wipebook, the online version of our electronic medical record. If you would like to use this service, please call Suellen John, Connectivity Coordinator, at . We appreciate the opportunity to care for your patients. If you would like additional information, please call the emergency department directly at . Sincerely, Kristian Brooks MD Division of Emergency Medicine [place], [place] [facility] [place] I DESIGNATED EMERGENCY DEPARTMENT Provider contact with the patient: 07/31/2018 19:25 Loulou M Bernardo [id number] [facility] History Chief Complaint Patient [...] RN) documented in this encounter Care Teams Clinical Psychology Teacher Relationship Specialty Start Date End Date Madeline Davis MD [address] [place] [address] [address] [place] [address] PCP - General Family Medicine 07/31/18 documented as of this encounter
--- OUTSIDE RECORDS SUMMARY | 2024-03-25 06:47 | XMS_ITS | Encounter Summary ---
Author Organization [facility] Address [address] [place] [address]. [place], [place] [address] [place] [address] Care Team Providers Care Molten Iron Pourer Name Role Phone Madeline Davis MD Primary Care Provider [phone] Encounter Details Date Type Department Care Team [...] on filedocumented in this encounter Care Teams Molten Iron Pourer Relationship Specialty Start Date End Date Madeline Davis MD [address] [address] PCP - General FAMILY PRACTICE 10/29/18 10/28/22 documented as of this encounter
--- OUTSIDE RECORDS SUMMARY | 2024-03-25 06:47 | XMS_ITS | Encounter Summary ---
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 [place] [address] Referral ID Status Reason Start Date Expiration Date V isits Requested Visits Authorized [id number] Authorized 10/12/2023 10/11/2024 18 18 Encounter Details Date Type Department Care Team (Latest Contact Info) Description 10/12/2023 9:42 AM CDT - 10/12/2023 11:59 PM CDT Hospital Encounter [facility] MATERNAL/ EVALUATION UNIT [address] [place], [place] [id number] Manuel Morris MD [address] [place], [place] [id number] Discharge Disposition: Home or Self Care Social [...] AM CDT Narrative 10/12/2023 10:47 AM CDT ?[facility] ? [facility] [place] ?[facility] ?PHONE: ??FAX: Pat. Name: ?EMERSON CORREIA Pat. No: ?[id number] Study Date: ?? 10/12/2023 ??10:07am , Age: ? 2005, 18 Pregnancies: ?? 1, Para 0 Height: ? 64 in Weight: ? 244 lb LMP: ?Unknown GA by Base: ?? 16w6d ?? ANGUS: 03/22/2024 GA by US: ? 17w4d ?? ANGUS: 03/17/2024 GA Selected: ??16w6d (From [facility]) ANGUS: ?03/22/2024 Referring MD: Mike Archer MD Video Machines Mechanic: ??Staci Troy, RDMS, RVT, RDCS CPT4: ? [address] BMI: ?41.88 Hist/Ind: ? 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 GROWTH EVALUATION Measurement ??GA ? Range ? Srce %for GA Ratios ----- ---- ------- BPD ??4.0 cm 18w1d (13u9v-41q2c) Hadl BPD 93% FL/BPD 0.60 HC ??14.2 cm 17w4d (76f1m-44w0h) Hadl HC ??73% FL/AC ??0.21 AC ??11.5 cm 17w2d (52w3i-89x8p) Hadl AC ??64% HC/AC ??1.24 (1.09 - 1.28) FL ?? 2.4 cm 17w2d (51n1r-44b6i) Hadl FL ??60% CI ? 0.80 (0.70 - 0.86) HL ?? 2.3 cm 17w0d (60c0t-16l5j) Mian HL ??53% GA for sonogram 17w4d (66s9k-59h9u) ?? 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 [address] [place] [address] PCP - General Family Medicine 07/31/18 documented as of this encounter
--- OUTSIDE RECORDS SUMMARY | 2024-03-25 06:47 | XMS_ITS | Encounter Summary ---
Author Organization [facility] Address [address] [place] [address]. [place] [address] [place] [address] Care Team Providers Care Research Programmer Name Role Phone None, Provider MD Primary Care Provider Unavaila ble Reason for Visit * Reason Comments Allergic Reaction Encounter Details Date Type Department Care Team (Late st Contact Info) Description 10/29/2022 8:07 PM CDT - 10/29/2022 8:53 PM CDT Emergency [facility] Emergency Room [address] [place], [place] [address] Grace Dietz, PA [address] [place] [address] Allergic Reaction Discharge Disposition: Home [...] 10/29/2022 7:4 6 PM CDT Growth Chart: [facility] (Girls, 2- 20 Years) documented in this [...] HISTORY: Past Medical History: Diagnosis Date Asthma ([facility] PAST SURGICAL HISTORY: History reviewed. No pertinent [...] RN) documented in this encounter Care Teams Research Programmer Relationship Specialty Start Date End Date None, Provider, PCP - General UNKNOWN PHYSICIAN SPECIALTY 10/29/22 documented as of this encounter
--- OUTSIDE RECORDS SUMMARY | 2024-03-25 06:47 | XMS_ITS | Encounter Summary ---
Author Organization [facility] Address [address] [place] [address] Care Team Providers Care Branch Store Manager Name Role Phone Madeline Davis MD Primary Care Provider [phone] Encounter Details Date Type Department Care Team [...] on filedocumented in this encounter Care Teams Branch Store Manager Relationship Specialty Start Date End Date Madeline Davis MD [address] [place] [address] [address] [place] [address] PCP - General Family Medicine 07/31/18 documented as of this encounter
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
--- OUTSIDE RECORDS SUMMARY | 2024-03-25 06:47 | XMS_ITS | Encounter Summary ---
Author Organization [facility] Address [address] [facility] [place] [address] Care Team Providers Care Weathercaster Name Role Phone Madeline Davis MD Primary Care Provider [phone] Reason for Visit * Reason Onset Date Comments Referral 09/09/2023 Encounter Details Date Type Department Care Team (Late st Contact Info) Description 09/09/2023 Telephone [facility] MATERNAL/ EVALUATION UNIT [address] [place] [address]. [address] [place] [address] Jana Hunt RN Referral Social History Tobacco [...] CDT Loulou contacted and scheduled for GC/Ultrasound. Booster.lyt message sent. documented in this encounter Plan of Treatment Not on file documented as of this encounter Visit Diagnoses Not on filedocumented in this encounter Care Teams Weathercaster Relationship Specialty Start Date End Date Madeline Davis MD [address] [place] [address] [address] [place] [address] PCP - General Family Medicine 07/31/18 documented as of this encounter
--- OUTSIDE RECORDS SUMMARY | 2024-03-25 06:47 | XMS_ITS | Encounter Summary ---
Author Organization [facility] Address [address] [place] [address]. [place], [place] [address] [place] [address] Care Team Providers Care Svp Research And Strategic Analysis Name Role Phone Madeline Davis MD Primary Care Provider [phone] Encounter Details Date Type Department Care Team [...] on filedocumented in this encounter Care Teams Svp Research And Strategic Analysis Relationship Specialty Start Date End Date Madeline Davis MD [address] [address] PCP - General FAMILY PRACTICE 10/29/18 10/28/22 documented as of this encounter
--- OUTSIDE RECORDS SUMMARY | 2024-03-25 06:47 | XMS_ITS | Encounter Summary ---
Author Organization [facility] Address [address] [facility] [address] [place] [address] Care Team Providers Care Coding Specialist Home Health Name Role Phone Madeline Davis MD Primary Care Provider Reason for Visit * Reason Onset Date Comments Appointment 02/02/2024 Encounter Details Date Type Department Care Team (Late st Contact Info) Description 02/02/2024 Telephone [facility] Maternal & Care [address] [place] [address] Rhea Florian Appointment Social History Tobacco Use [...] Growth US, no answer left a voicemail. ISION MILLWRIGHT documented in this encounter Plan of Treatment Not on file documented as of this encounter Visit Diagnoses Not on filedocumented in this encounter Care Teams Coding Specialist Home Health Relationship Specialty Start Date End Date Madeline Davis MD [address] [place] [address] [address] [place] [address] PCP - General Family Medicine 07/31/18 documented as of this encounter
--- OUTSIDE RECORDS SUMMARY | 2024-03-25 06:47 | XMS_ITS | Encounter Summary ---
Author Organization [facility] Address [address] [place] [address] Care Team Providers Care Coating Mixer Name Role Phone Madeline Davis MD Primary Care Provider [phone] Reason for Referral * (Routine) - Open [...] PROFILE WO NST Priscilla Bacon MD [address] [place] [address] Referral ID Status Reason Start Date Expiration Date Visits Re quested Visits Authorized [id number] Open 03/10/2024 03/10/2025 1 1 ALS COLLECTOR/ANALYST * (Routine) - Open Specialty Diagnoses / [...] NST Priscilla Bacon MD [address] [place] [address] Referral ID Status Reason Start Date Expiration Date Visits Re quested Visits Authorized [id number] Open 03/10/2024 03/10/2025 1 1 ALS COLLECTOR/ANALYST Reason for Visit * Reason Comments Biophysical Profile Encounter Details Date Type Department Care Team (Latest Contact Info) Description 03/14/2024 10:26 AM SIGNALS COLLECTOR/ANALYST - 03/14/2024 11:59 PM SIGNALS COLLECTOR/ANALYST Hospital Encounter [facility] Maternal & Care [address] [place] [address] Head, Mounika Mercer MD [address] [place] [address] Rowdy Hyatt MD [address] [place] [address] Discharge Disposition: Home or Self [...] PROFILE WO NST Routine 03/14/2024 11:22 AM SIGNALS COLLECTOR/ANALYST Encounter for ultrasound (HCC) Primigravida, antepartum (HCC) Obesity in (HCC) Asthma, unspecified asthma severity, unspecified whether complicated, unspecified whether persistent (HCC) BMI 40.0-44.9, adult (HCC) Family history of cleft lip and palate 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 if undelivered Coding ====== Procedures ? [id number]: US Uterus Limited ? 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
--- OUTSIDE RECORDS SUMMARY | 2024-03-25 06:47 | XMS_ITS | Encounter Summary ---
Author Organization [facility] Address [address] [place] [address]. [place], [place] [address] [place] [address] Care Team Providers Care Portable Sawyer Name Role Phone Madeline Davis MD Primary Care Provider [phone] Encounter Details Date Type Department Care Team [...] on filedocumented in this encounter Care Teams Portable Sawyer Relationship Specialty Start Date End Date Madeline Davis MD [address] [address] PCP - General FAMILY PRACTICE 10/29/18 10/28/22 documented as of this encounter
--- OUTSIDE RECORDS SUMMARY | 2024-03-25 06:47 | XMS_ITS | Encounter Summary ---
Author Organization [facility] System Address [address] [place] [address]. [place], [place] [address] [place] [address] Care Team Providers Care Chocolate Finisher Name Role Phone Madeline Davis MD Primary Care Provider [phone] Reason for Visit * Reason Comments Exposure Coronavirus (Covid-19) Encounter Details Date Type Department Care Team (Late st Contact Info) Description 10/30/2019 5:26 PM CDT - 10/30/2019 7:[address] [facility] [place] [address] Grace De Leon, Exposure Coronavirus (Covid-19) Discharge [...] 10/30/2019 4:5 0 PM CDT Growth Chart: [facility] (Girls, 2- 20 Years) documented in [...] more, than cough syrup. You may give cxxp-cgp-yabggou benadryl or zyrtec as needed for sinus [...] controlling its spread. Information from the AAP (https://www.healthychildren.org/Bur[place]/health- issues/conditions/chest-lungs/Pages/6389-Fbizq-Jdlacqukjhs.aspx) 2019 Novel Coronavirus (COVID-19) Human Coronaviruses are [...] and water are not available, use hand dermatology physician. Look for one that is 60% or [...] stuffed animals or other plush toys, following research/program director???s instructions in the warmest water possible and dry them completely. Avoid touching your face; teach your children to do the same. Avoid travel to highly infected areas. Follow local and state guidance on travel restrictions. If your child has been exposed to COVID-19, or you are concerned about your child???s symptoms, call your senior mechanical technician immediately. How to care for someone in [...] if the illness gets worse. Note: The [place] [employer] agrees with the World [...] The AAP recommends parents talk with a senior mechanical technician about the correct dose before using any [...] for parents and frightening to kids. The [place] [employer] encourages parents and others [...] and neither should we. While COVID-[facility] startedin [facility], it doesn???t mean that having ancestry - [...] and in communities. Last Updated 06/12/2019 Source [place] [employer] (Copyright ?? 2019) The information contained on heathychildren.org should not be used as a substitute for the medical care and advice of your senior mechanical technician. There may be variations in treatment that your senior mechanical technician may recommend based on individual facts and [...] XR CHEST PORTABLE Final Result by User, [email or web address] (10/29 271) Examination: Chest Radiograph, 1 view Exam Date/Time: [...] DETECTED NOT DETECTED 11/02/2019 12:18 AM CDT [facility] Comment: A Not Detected (negative) [...] providers and patients using the following websites: https://www.The Black Tux.[facility]/home/Covid-19/HCP/NAAT/fact-sheet2 https://www.[employer].[facility]/home/Covid-19/Patients/NAAT/ fact-sheet2 This test has been authorized by the FDA under an Emergency Use Authorization (EUA) for use by authorized laboratories. Due to the current public health emergency, [facility] is receiving a high volume of samples [...] about COVID-19 can be found at the [facility] website: www.Whistle.co.uk.[facility]/Covid19. Test performed at [facility] [address] [place], [place] ??[address] Director: BHAVESH HENRIQUEZ DO,MPH 10/30/2019 6:00 PM CDT Grace De Leon DO MICROBIOLOGY - GENERAL ORD ERABLES Final Result [facility] [address] [address], * XR CHEST PORTABLE (10/30/2019 5:59 PM [...] breath documented in this encounter Care Teams Chocolate Finisher Relationship Specialty Start Date End Date Madeline Davis MD [address] [address] PCP - General FAMILY PRACTICE 10/29/18 10/28/22 documented as of this encounter
--- OUTSIDE RECORDS SUMMARY | 2024-03-25 06:47 | XMS_ITS | Encounter Summary ---
Author Organization [facility] System Address [address] [place] [address]. [place], [place] [address] [place] [address] Care Team Providers Care Husker Operator Name Role Phone Madeline Davis MD Primary Care Provider [phone] Reason for Visit * Reason Comments Fall Leg Pain Encounter Details Date Type Department Care Team (Late st Contact Info) Description 12/24/2019 10:05 PM CDT - 12/24/2019 11:51 PM CDT Emergency [facility] [place] [address] Dean Garcia MD [facility] [place] [address] Fall; Leg Pain Discharge Disposition: Home or [...] 12/24/2019 9:5 2 PM CDT Growth Chart: [facility] (Girls, 2- 20 Years) documented in this [...] Care Everywhere. * Knee Pain Discharge Instructions (Singaporean) documented in this encounter Medications at Time [...] fracture. History provided by: Patient and parent aerial photograph interpreter used: No Medical History ALLERGIES: No Known [...] KNEE RT 2V Final Result by User, [id number] (12/24 2319) Examination: Right knee 2 views [...] above right knee. Ice pack applied. 12/24/19 3048 Skin Color/Condition Skin Color/Condition (WDL) X Skin [...] Primary documented in this encounter Care Teams Husker Operator Relationship Specialty Start Date End Date Madeline Davis MD [address] [address] PCP - General FAMILY PRACTICE 10/29/18 10/28/22 documented as of this encounter
--- OUTSIDE RECORDS SUMMARY | 2024-03-25 06:47 | XMS_ITS | Encounter Summary ---
Author Organization [facility] Address [address] [place] [address]. [place], [place] [address] [place] [address] Care Team Providers Care Project Facilitator Name Role Phone None, Provider Primary Care [...] documented as of this encounter Care Teams Project Facilitator Relationship Specialty Start Date End Date None, Provider, PCP - General UNKNOWN PHYSICIAN SPECIALTY 10/29/22 documented as of this encounter
--- OUTSIDE RECORDS SUMMARY | 2024-03-25 06:47 | XMS_ITS | Encounter Summary ---
Author Organization [facility] Health Address [address] [facility] [place] [address] Care Team Providers Care Scrubber Machine Tender Name Role Phone Madeline Davis MD Primary Care Provider Encounter Details Date Type Department Care Team (Latest Contact Info) Description 09/14/2023 9:37 AM CDT - 09/14/2023 9:38 AM CDT Hospital Encounter [facility] MATERNAL/ EVALUATION UNIT [address] [facility] [place] [address] Manuel Morris MD [address] [facility] [address] [place] [address] Discharge Disposition: Home or Self Care Social [...] note were not included. GENETICS CONSULTATION NOTE [facility] PATIENT: Loulou Chang DATE OF : 2005 DATE SEEN: 09/14/2023 SEEN BY: Socorro Potter MS, [facility] - Genetic Counselor PATIENT PROFILE: Ms. Chang is , 18 year old. She was accompanied by Dudley (FOB) and his mother.A total of 35 minutes was spent counseling this patient. CURRENT : Ms. Chang was referred for genetic counseling to review the high risk NIPT ([place]) results. FAMILY HISTORY: Family history is remarkable [...] collection tube and amount. If deliveryoccurs at [facility] draw at least 3cc cord blood in green top sodium heparin tube. Order MUST be placed in baby's chart at that time. ORDER names: The test name is lab dependent. It is BEST for this to be discussed and planned ahead of time to ensure you have the correct orders and tubes available. If the OB has questions about the order, please call [phone] (Genetic Counselor). Chromosome analysis is recommended. Socorro Potter MS, [facility] Lead Genetic Counselor Gear Cutting Machine Operator Maternal Care Center [facility] cc: Mike Archer MD documented in this encounter Plan of Treatment Not on file documented as of this encounter Visit Diagnoses Not on filedocumented in this encounter Care Teams Scrubber Machine Tender Relationship Specialty Start Date End Date Madeline Davis MD [address] [facility] [address] [place] [address] PCP - General Family Medicine 07/31/18 documented as of this encounter
--- OUTSIDE RECORDS SUMMARY | 2024-03-25 06:47 | XMS_ITS | Encounter Summary ---
Author Organization [facility] Health Address [address] [place] [address] Care Team Providers Care State Inspector Name Role Phone Madeline Davis MD Primary Care Provider [phone] Encounter Details Date Type Department Care Team [...] on filedocumented in this encounter Care Teams State Inspector Relationship Specialty Start Date End Date Madeline Davis MD [address] [place] [address] [address] [place] [address] PCP - General Family Medicine 07/31/18 documented as of this encounter
--- OUTSIDE RECORDS SUMMARY | 2024-03-25 06:47 | XMS_ITS | Encounter Summary ---
Author Organization [facility] Address [address] [place] [address]. [place], [place] [address] [place] [address] Care Team Providers Care Clinical Research Director Name Role Phone Madeline Davis MD Primary Care Provider [phone] Reason for Visit * Reason Comments Knee Pain Encounter Details Date Type Department Care Team (Late st Contact Info) Description 08/28/2019 3:22 PM CDT - 08/28/2019 4:41 PM CDT Emergency [facility] [place] [address] Cara Moran MD [address] [place] [address] [id number] Knee Pain Discharge Disposition: Home or Self [...] 08/28/2019 3:4 1 PM CDT Growth Chart: [facility] (Girls, 2- 20 Years) documented in this [...] Care Everywhere. * Knee Sprain Discharge Instructions (Greenlandic) documented in this encounter Medications at Time [...] KNEE RT 3V Final Result by User, [email or web address] (08/27 1616) PATIENT NAME: EMERSON CORREIA EXAM: [...] documented in this encounter Care Teams Clinical Research Director Relationship Specialty Start Date End Date Madeline Davis MD [address] [address] PCP - General FAMILY PRACTICE 10/29/18 10/28/22 documented as of this encounter
--- OUTSIDE RECORDS SUMMARY | 2024-03-25 06:47 | XMS_ITS | Encounter Summary ---
Author Organization [facility] Address [address] [place] [address]. [place], [place] [address] [place] [address] Care Team Providers Care Reimbursement Liaison Name Role Phone Madeline Davis MD Primary Care Provider [phone] Encounter Details Date Type Department Care Team [...] documented as of this encounter Care Teams Reimbursement Liaison Relationship Specialty Start Date End Date Madeline Davis MD [address] [facility] [address] [place] [address] PCP - General FAMILY PRACTICE 10/29/18 10/28/22 documented as of this encounter
--- OUTSIDE RECORDS SUMMARY | 2024-03-25 06:47 | XMS_ITS | Encounter Summary ---
Author Organization [facility] Address [address] [place] [address] Care Team Providers Care Bobj Developer Name Role Phone Madeline Davis MD Primary Care Provider [phone] Reason for Referral * (Routine) - Open Specialty Diagnoses / Procedures Referred By Contac t Referred To Contact Diagnoses Encounter for anatomic survey (HCC) Abnormal chromosomal and genetic finding on screening of mother Procedures SONOGRAM - COMPLETE Unlisted, Ordering ProviderMD Referral ID Status Reason Start Date Expiration Date Visits Re quested Visits Authorized [id number] Open 11/03/2023 11/02/2024 1 1 * (Routine) - Open Specialty Diagnoses / Procedures Referred By Contac t Referred To Contact Diagnoses Encounter for anatomic survey (HCC) Abnormal chromosomal and genetic finding on screening of mother Procedures SONOGRAM - COMPLETE Unlisted, Ordering ProviderMD Referral ID Status Reason Start Date Expiration Date Visits Re quested Visits Authorized [id number] Open 11/03/2023 11/02/2024 1 1 Encounter Details Date Type Department Care Team (Latest Contact Info) Description 11/09/2023 9:39 AM CDT - 11/09/2023 11:59 PM CDT Hospital Encounter [facility] MATERNAL/ EVALUATION UNIT [address] [place] [address] [address] [place] [address] Manuel Morris MD [address] [place] [address] Saturnino Azar DO [address] [place] [address] EDGER RUNNER Discharge Disposition: Home or Self Care Social [...] for anatomic survey (HCC) 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 - [place] ?Maternal and Care Center ?PHONE: ??FAX: Pat. Name: ?MASOODORENRA Burris Pat. No: ?[id number] Study Date: ?? 11/09/2023 ??9:49am , Age: ? 2005, 18 Pregnancies: ?? 1, Para 0 Height: ? 64 in Weight: ? 244 lb LMP: ?Unknown GA by Base: ?? 20w6d ?? ANGUS: 03/22/2024 GA by US: ? 21w6d ?? ANGUS: 03/15/2024 GA Selected: ??20w6d (From [facility]) ANGUS: ?03/22/2024 Referring MD: Mike Archre MD Senior Health Educator: ??Nayana Jewell RDMS, RVT CPT4: ? [address] BMI: ?41.88 Hist/Ind: ? 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 GROWTH EVALUATION Measurement ??GA ? Range ? Srce %for GA Ratios ----- ---- ------- BPD ??5.4 cm 22w2d (76a7x-34e0t) Hadl BPD 92% FL/BPD 0.74 HC ??19.6 cm 21w5d (05x2f-33h5m) Hadl HC ??80% FL/AC ??0.24 AC ??16.3 cm 21w2d (46f5n-29r3l) Hadl AC ??61% HC/AC ??1.20 (1.06 - 1.24) FL ?? 4.0 cm 22w6d (19d4a-36k0m) Hadl FL ??93% CI ? 0.78 (0.70 - 0.86) HL ?? 3.6 cm 22w2d (34e6y-91r7c) Mian HL ??73% Cere 2.2 cm 20w4d (66u1i-40s4o) Hill Cere43% GA for sonogram 21w6d (64v5q-42b5e) ?? 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
--- OUTSIDE RECORDS SUMMARY | 2024-03-25 06:47 | XMS_ITS | Encounter Summary ---
Author Organization [facility] Health Address [address] [place] [address] Care Team Providers Care Licensed Customs Broker Name Role Phone Madeline Davis MD Primary [...] on filedocumented in this encounter Care Teams Licensed Customs Broker Relationship Specialty Start Date End Date Madeline Davis MD [address] [place] [address] [address] [place] [address] PCP - General Family Medicine 07/31/18 documented as of this encounter
--- OUTSIDE RECORDS SUMMARY | 2024-03-25 06:47 | XMS_ITS | Encounter Summary ---
Author Organization [facility] Address [address] [place] [address]. [place], [place] [address] [place] [address] Care Team Providers Care Credit Products Officer Name Role Phone Madeline Davis MD Primary Care Provider [phone] Reason for Visit * Reason Comments Psychiatric Evaluation Encounter Details Date Type Department Care Team (Late st Contact Info) Description 10/29/2018 2:13 AM CDT - 10/29/2018 7:13 AM CDT Emergency [facility] [place] [address] Sancho Silva MD [facility] [place] [address] Psychiatric Evaluation Discharge Disposition: Home or [...] 1:4 4 AM CDT Growth Chart: [facility] (Girls, 2- 20 Years) documented [...] I suggest you read. Please call your abattoir manager and let them know that your child [...] through Care Everywhere. * Intermittent Explosive Disorder (Georgian) documented in this encounter ED Notes * Priscilla Holley RN - 10/29/2018 6:54 AM CDT Maged [...] that she needed to leave due to children's program coordinator, Dr Silva Notified and came to bedside to speak with mom * Priscilla Holley RN - 10/29/2018 4:53 AM CDT Maged with ANDRA called for another report, Maged stated I will get up and get dressed and come in.PRISCILLA HOLLEY RN * Priscilla Holley RN - 10/29/2018 4:02 AM CDT Spoke with ANDRA and gave a report. gas systems worker has been dispatched.PRISCILLA HOLLEY RN * [...] of the commotion other patrons called the ticket taker ferryboat to recommended she come here for evaluation. [...] Disposition: Discharge MD Sancho CHANG MD 10/29/18 0618 Sancho Silva MD 10/29/18 0651 Sancho Silva [...] (U) NEGATIVE NEGATIVE 9 3:14 AM CDT [facility] BARBITURATES SCREEN (U) NEGATIVE NEGATIVE 10/29/2018 3:14 AM CDT [facility] BENZODIAZEPINES SCREEN (U) NEGATIVE NEGATIVE 10/29/2018 3:14 AM CDT [facility] CANNABINOIDS SCREEN (U) NEGATIVE NEGATIVE 10/29/2018 3:14 AM CDT [facility] COCAINE METABOLITES (U) NEGATIVE NEGATIVE 10/29/2018 3:14 AM CDT [facility] METHADONE (U) NEGATIVE NEGATIVE 10/29/2018 3:14 AM CDT [facility] OPIATE SCREEN (U) NEGATIVE NEGATIVE 019 3:14 AM CDT [facility] PHENCYCLIDINE PCP (U) NEGATIVE NEGATIVE 10/29/2018 3:14 AM CDT [facility] Comment: NOTE: RESULTS OF THIS DRUG SCREEN SHOULD BE USED FOR MEDICAL PURPOSES ONLY AND NOT FOR LEGAL OR EMPLOYMENT PURPOSES. POSITIVE RESULTS ARE NOT CONFIRMED. MEDICATIONS CONTAINING EPHEDRINE MAY CAUSE FALSE POSITIVE AMPHETAMINE CALL 3, LAB, TO REQUEST CONFIRMATION TESTING. IF CREATININE IS <40 mg/dL. ??RECOLLECTION IS SUGGESTED. AMPHETAMINE- ?500 NG/ML BARBITURATE- ?200 NG/ML BENZODIAZEPINES- ??200 NG/ML THC- ? 50 NG/ML COCAINE- ?150 NG/ML METHADONE- ?300 NG/ML OPIATE- ? 300 MG/ML PCP- ? 25 NG/ML CREATININE (U) 261.0(H) 28 - 217 MG/DL 10/29/2018 3:14 AM CDT [facility] Urine specimen (specimen) URINE SPECIMEN / Unknown 10/29/2018 2:54 AM CDT us Sancho Silva MD URINE ORDERABLES Final Result [facility] [address] [place] [address], [place] [phone] documented in this encounter Visit Diagnoses Diagnosis Aggressive behavior- Primary Explosive personality disorder documented in this encounter Care Teams Credit Products Officer Relationship Specialty Start Date End Date Madeline Davis MD [address] [address] PCP - General FAMILY PRACTICE 10/29/18 10/28/22 documented as of this encounter
--- OUTSIDE RECORDS SUMMARY | 2024-03-25 06:47 | XMS_ITS | Encounter Summary ---
Author Organization [facility] Health Address [address] [place] [address] Care Team Providers Care Net Software Architect Name Role Phone Madeline Davis MD Primary Care Provider [phone] Encounter Details Date Type Department Care Team [...] on filedocumented in this encounter Care Teams Net Software Architect Relationship Specialty Start Date End Date Madeline Davis MD [address] [place] [address] [address] [place] [address] PCP - General Family Medicine 07/31/18 documented as of this encounter
--- OUTSIDE RECORDS SUMMARY | 2024-03-25 06:47 | XMS_ITS | Encounter Summary ---
Author Organization [facility] Address [address] [facility] [place] [address] Care Team Providers Care City Wellness Coordinator Name Role Phone Madeline Davis MD Primary Care Provider [phone] Reason for Referral * (Routine) - Open Specialty Diagnoses / Procedures Referred By Josemanuel silver Referred To Contact Maternal Medicine Diagnoses Supervision of high-risk of young primigravida (HCC) Obesity in (HCC) 32 weeks gestation of (HCC) Abnormal chromosomal and genetic finding on screening of mother Procedures SONOGRAM - COMPLETE Manuel Morris MD [address] [address] [facility] Maternal Fet [address] [place] [address] Referral ID Status Reason Start Date Expiration Date Visits Re quested Visits Authorized [id number] Open 02/26/2024 02/25/2025 1 1 NE FARMER * (Routine) - Open Specialty Diagnoses / Procedures Referred By Josemanuel silver Referred To Contact Maternal Medicine Diagnoses Supervision of high-risk of young primigravida (HCC) Obesity in (HCC) 32 weeks gestation of (HCC) Abnormal chromosomal and genetic finding on screening of mother Procedures SONOGRAM - COMPLETE Manuel Morris MD [address] [address] [facility] Maternal Fet [address] [place] [address] Referral ID Status Reason Start Date Expiration Date Visits Re quested Visits Authorized [id number] Open 02/26/2024 02/25/2025 1 1 NE FARMER Reason for Visit * Reason Comments Ultrasound Encounter Details Date Type Department Care Team (Latest Contact Info) Description 02/29/2024 9:59 AM MARINE FARMER - 02/29/2024 11:59 PM MARINE FARMER Hospital Encounter [facility] Maternal & Care [address] [place] [address] Head, Mounika Mercer MD [address] [facility] [address] [place] [address] Discharge Disposition: Home or Self [...] Comments Blood Pressure 123/57 02/29/2024 11:45 AM MARINE FARMER Pulse 97 02/29/2024 11:45 AM MARINE FARMER Temperature - - Respiratory Rate 18 02/29/2024 11:45 AM MARINE FARMER Oxygen Saturation - - Inhaled Oxygen Concentration - - Weight 112 kg (247 lb) 02/29/2024 11:45 AM MARINE FARMER Height - - Body Mass Index - [...] Accelerations: Yes OTHER INFORMATION Ruba Garcia RN NE FARMER documented in this encounter Plan of Treatment Not on file documented as of this encounter Procedures Procedure Name Priority Date/Time Associated Diagnosis Comments SONOGRAM - COMPLETE Routine 02/29/2024 10:20 AM MARINE FARMER Supervision of high-risk of young primigravida (HCC) Obesity in (HCC) 32 weeks gestation of (HCC) 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 Hadlock ([id number]) Head / Face / Neck Biometry: Cephalic [...] profile is recommended Coding ====== Procedures ? 35003: [place] ? 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
--- OUTSIDE RECORDS SUMMARY | 2024-03-25 06:47 | XMS_ITS | Encounter Summary ---
Author Organization [facility] Address [address] [place] [address] Care Team Providers Care Shift Supervisor Rn Name Role Phone Madeline Davis MD Primary Care Provider [phone] Reason for Referral * (Routine) - Open Specialty Diagnoses / Procedures Referred By Contac t Referred To Contact Diagnoses Encounter for ultrasound to assess growth (HCC) Procedures SONOGRAM - COMPLETE Unlisted, Ordering MD Wilman Referral ID Status Reason Start Date Expiration Date Visits Re quested Visits Authorized [id number] Open 01/25/2024 01/24/2025 1 1 XML DEVELOPER * (Routine) - Open Specialty Diagnoses / Procedures Referred By Contac t Referred To Contact Diagnoses Encounter for ultrasound to assess growth (HCC) Procedures SONOGRAM - COMPLETE Unlisted, Ordering MD Wilman Referral ID Status Reason Start Date Expiration Date Visits Re quested Visits Authorized [id number] Open 01/25/2024 01/24/2025 1 1 XML DEVELOPER Encounter Details Date Type Department Care Team (Latest Contact Info) Description 02/01/2024 9:31 AM JAVA XML DEVELOPER - 02/01/2024 11:59 PM JAVA XML DEVELOPER Hospital Encounter [facility] MATERNAL/ EVALUATION UNIT [address] [place] [address] Manuel Morris MD [address] [place] [address] Discharge Disposition: Home or Self Care Social [...] - COMPLETE Routine 02/01/2024 9 :54 AM JAVA XML DEVELOPER Encounter for ultrasound to assess growth (HCC) documented in this encounter Results * SONOGRAM - COMPLETE (02/01/2024 9:54 AM JAVA XML DEVELOPER) Linked Results Indication ======== growth assessment FOB's [...] lb 8 ??oz EFW by ? Hadlock ([id number]) Head / Face / Neck Biometry: Cephalic [...] added if needed) Coding ====== Procedures ? 36303: US Preg Uterus Follow Up DragonRAD PACS Anatomical Region Laterality Modality Other 02/01/2024 9:54 AM JAVA XML DEVELOPER Ordering Provider Unlisted MD DEN VALLADARES documented [...] incidental documented in this encounter Care Teams Shift Supervisor Rn Relationship Specialty Start Date End Date Madeline Davis MD [address] [facility] [address] [place] [address] PCP - General Family Medicine 07/31/18 documented as of this encounter
--- OUTSIDE RECORDS SUMMARY | 2024-03-25 06:47 | XMS_ITS | Encounter Summary ---
Author Organization [facility] Address [address] [facility] [place] [address] Care Team Providers Care Electrical Estimator Name Role Phone Madeline Davis MD Primary Care Provider [phone] Encounter Details Date Type Department Care Team (Late st Contact Info) Description 12/24/2019 8:50 AM CDT - 12/24/2019 11:03 AM CDT Hospital Encounter [facility] [address] [place] [address] Dean Garcia MD [address] [place] [address] Emergency Medicine Discharge Disposition: Home or Self [...] encounter documented in this encounter Care Teams Electrical Estimator Relationship Specialty Start Date End Date Madeline Davis MD [address] [facility] [address] [place] [address] PCP - General Family Medicine 07/31/18 documented as of this encounter
--- OUTSIDE RECORDS SUMMARY | 2024-03-25 06:47 | XMS_ITS | Encounter Summary ---
Author Organization [facility] Address [address] [place] [address]. [place], [place] [address] [place] [address] Care Team Providers Care Supervisor Claims Name Role Phone None, Provider Primary Care [...] filedocumented in this encounter Care Teams Supervisor Claims Relationship Specialty Start Date End Date None, Provider, PCP - General UNKNOWN PHYSICIAN SPECIALTY 10/29/22 documented as of this encounter
--- OUTSIDE RECORDS SUMMARY | 2024-03-25 06:47 | XMS_ITS | Patient Health Summary ---
Author Organization [facility] Address [address] [facility] [place] [address] Care Team Providers Care Hand Box Folder Name Role Phone Madeline Davis MD Primary Care Provider [phone] Note from [facility],non-owned Affiliates and Associated Physician Practices is amultiple site organization consisting of ambulatory clinics and hospital sitesin [place] and [place]. This disclosure is being madepursuant to the Care Everywhere program and may not contain all information available regarding this patient. Last updated 17.[facility] [employer] Allergies No known active allergies Medications Be aware that medications may not be up to date on this document. Always verify current medications with the patient. 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 Social History Tobacco [...] Comments Blood Pressure 123/57 02/29/2024 11:45 AM INFANTRY OFFICER Pulse 97 02/29/2024 11:45 AM INFANTRY OFFICER Temperature 37.2 ??C (98.9 ??F) 07/31/2018 6:33 PM CD T Respiratory Rate 18 02/29/2024 11:45 AM INFANTRY OFFICER Oxygen Saturation - - Inhaled Oxygen Concentration - - Weight 112 kg (247 lb) 02/29/2024 11:45 AM INFANTRY OFFICER Height 164 cm (5' 4.57) 07/31/2018 6:33 PM CDT Body Mass Index - - Procedures * BIOPHYSICAL PROFILE WO NST(Performed 03/14/2024) Performed for Encounter for ultrasound (HCC), Primigravida, antepartum (HCC), Obesity in (HCC), Asthma, unspecified asthma severity, unspecified whether complicated, unspecified whether persistent (HCC), BMI 40.0- 44.9, adult (HCC), Family history of cleft lip and palate, 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, 38 weeks gestation of ([facility]) * BIOPHYSICAL PROFILE WO NST(Performed 03/07/2024) Performed for Obesity in (HCC), 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, Asthma, unspecified asthma severity, unspecified whether complicated, unspecified whether persistent (HCC), Encounter for ultrasound ([facility]), Primigravida, antepartum (HCC), BMI 40.0-44.9, adult (HCC), Family history of cleft lip and palate, 37 weeks gestation of (HCC) * SONOGRAM - COMPLETE(Performed 02/29/2024) Performed for Supervision of high-risk of young primigravida (HCC), Obesity in (HCC), 32 weeks gestation of (HCC), 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 * SONOGRAM - COMPLETE(Performed 02/01/2024) Performed for Encounter for ultrasound to assess growth ([facility]) * SONOGRAM - COMPLETE(Performed 01/04/2024) Performed for 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 * SONOGRAM - COMPLETE(Performed 12/07/2023) Performed for 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 if undelivered Coding ====== Procedures ? [id number]: US Uterus Limited ? 21325: Biophysical Profile W/O NST [facility] PACS Anatomical Region Laterality Modality Other 03/14/2024 11:2 2 AM INFANTRY OFFICER Priscilla Bacon MD [facility] ORDERABLES * SONOGRAM - COMPLETE (02/29/2024 10:20 AM INFANTRY OFFICER) Only the most recent of7 resultswithin the [...] lb 10 oz EFW by ? Hadlock ([id number]) Head / Face / Neck Biometry: Cephalic [...] ? 74.8 ?82% ? 65 ?90% ? 3376 ?88% Impression ========= Single, live, intrauterine at 36w 6d growth appears appropriate Amniotic fluid volume: normal Biophysical profile: 10/30 Follow-up ======== Follow up ultrasound in 1 week for 8 point biophysical profile is recommended Coding ====== Procedures ? [id number]: [place] Preg Uterus Follow Up ? [address]87: Biophysical Profile W NST BESOS PACS Anatomical Region Laterality Modality Other 02/29/2024 10:2 0 AM INFANTRY OFFICER Manuel Morris MD [facility] ORDERABLES * XR KNEE RIGHT 2VW OR [...] MD DIAGNOSTIC IMAGING O RDERABLES Care Teams Hand Box Folder Relationship Specialty Start Date End Date Madeline Davis MD [address] [place] [address] [address] [place] [address] PCP - General Family Medicine 07/31/18
--- OUTSIDE RECORDS SUMMARY | 2024-03-25 06:47 | XMS_ITS | Encounter Summary ---
Author Organization [facility] Address [address] [place] [address]. [place], [place] [id number] [place] [address] Care Team Providers Care Palliative Nurse Name Role Phone Madeline Davis MD [...] on filedocumented in this encounter Care Teams Palliative Nurse Relationship Specialty Start Date End Date Madeline Davis MD [address] [address] PCP - General FAMILY PRACTICE 10/29/18 10/28/22 documented as of this encounter
--- OUTSIDE RECORDS SUMMARY | 2024-03-25 06:47 | XMS_ITS | Encounter Summary ---
Author Organization [facility] Address [address] [facility] [place] [address] Care Team Providers Care Stock Worker Name Role Phone Madeline Davis MD Primary Care Provider [phone] Reason for Referral * (Routine) - Open [...] PROFILE WO NST Head, Mounika Mercer MD [address] [facility] [address] [place] [address] Referral ID Status Reason Start Date Expiration Date Visits Re quested Visits Authorized [id number] Open 03/02/2024 03/02/2025 1 1 FORGER HELPER * (Routine) - Open Specialty Diagnoses / Procedures Referred By Contac t Referred To Contact Diagnoses Obesity in (HCC) Abnormal chromosomal and genetic finding on screening of mother Asthma, unspecified asthma severity, unspecified whether complicated, unspecified whether persistent (HCC) Encounter for ultrasound (HCC) Primigravida, antepartum (HCC) BMI 40.0-44.9, adult (HCC) Family history of cleft lip and palate 37 weeks gestation of ([facility]) Procedures BIOPHYSICAL PROFILE WO NST Mounika Perry MD [address] [place] [address] Referral ID Status Reason Start Date Expiration Date Visits Re quested Visits Authorized [id number] Open 03/02/2024 03/02/2025 1 1 FORGER HELPER Reason for Visit * Reason Comments Biophysical Profile Encounter Details Date Type Department Care Team (Latest Contact Info) Description 03/07/2024 10:18 AM DROP FORGER HELPER - 03/07/2024 11:59 PM DROP FORGER HELPER Hospital Encounter [facility] [address] [place] [address] HeadMounika MD [address] [place] [address] Discharge Disposition: Home or Self [...] PROFILE WO NST Routine 03/07/2024 10:36 AM DROP FORGER HELPER Obesity in (HCC) 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 Asthma, unspecified asthma severity, unspecified whether complicated, unspecified whether persistent ([facility]) Encounter for ultrasound ([facility]) Primigravida, antepartum ([facility]) BMI 40.0-44.9, adult ([facility]) Family history of cleft lip and palate 37 weeks gestation of ([facility]) documented in this encounter Results * BIOPHYSICAL PROFILE WO NST (03/07/2024 10:36 AM DROP FORGER HELPER) Linked Results Indication ======== Obesity Class III [...] point biophysical profile Coding ====== Procedures ? [id number]: US Uterus Limited ? 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 Abnormal findings on screening Asthma, unspecified asthma severity, unspecified whether complicated, unspecified whether persistent (HCC) Encounter for ultrasound ([facility]) Encounter for routine screening for malformation using ultrasonics Primigravida, antepartum ([facility]) BMI 40.0-44.9, adult ([facility]) Body Mass Index 40.0-44.9, adult Family history of cleft lip and palate Family history of congenital anomalies 37 weeks gestation of (HCC) state, incidental documented in this encounter Care Teams Stock Worker Relationship Specialty Start Date End Date Madeline Davis MD [address] [place] [address] [address] [place] [address] PCP - General Family Medicine 07/31/18 documented as of this encounter
--- OUTSIDE RECORDS SUMMARY | 2024-03-25 06:49 | XMS_ITS | Data Portability ---
Author Organization [facility] Address [address] [place] [address] [place] [address] Assessment Encounter Date Assessment Date Assessment LastModified by Organization Details LastModified Time 03/09/2024 03/09/2024 Patient is ___weeks . Discussed plan. [email or web address] Not available 03/09/2024 11:20:49 Plan of Treatment Reminders Order Date Submit Date Provider Last Modified By Organization Details Last Modified Time Details Appointments SURG POST OP 2024 10:45A [place] COLON MD Not available Not available Not available Lab None recorded. Referral None recorded. Procedures None recorded. Surgeries None recorded. Imaging US, obstetric , biophysic al profile + non-stres s test 2023 024 [email or web address] [facility] [address], [place], [address], 03/03/2024 20:39:40 non-stres s test 2023 024 [email or web address] [facility] [address], [place], [address], 03/09/2024 11:28:52 Medication Orders None recorded. Patient [...] t Abnor mal: No Resul ting Lab: [facility] [address] [facility] [address] Tel: CULTU RE ----- ----- ----- --- No Group B strep isola luke at 2 days (katia ctive broth enhan cemen t) Not Available [facility] (Lab) [address], [place], [address], 02/27/2024 15:13:31 02/02/20 24 02/01/2024 US, obste tric, follo w-up No observ ation record ed. [email or web address] [facility] [address], [place], [address], 02/04/2024 10:30:16 02/10/20 24 02/10/2024 non-s tress test No observ ation record ed. [email or web address] [facility] [address], [place], [address], 02/10/2024 11:58:14 02/10/20 24 02/10/2024 US, obstnelly tric, bioph ysica l profi le + non-s tress test No observ ation record ed. [email or web address] [facility], [place], [address], 02/10/2024 12:45:48 02/10/20 24 02/10/2024 US, obste tric, bioph ysica l profi le + non-s tress test No observ ation record ed. [email or web address] [address], [place], [address], 02/10/2024 22:00:22 02/17/20 24 02/17/2024 US, obste tric, bioph ysica l profi le + non-s tress test No observ ation record ed. [email or web address] [address], [place], [address], 02/17/2024 13:14:35 02/17/20 24 02/17/2024 US, obste tric, bioph ysica l profi le + non-s tress test No observ ation record ed. [email or web address] [address] [facility], [place], [address], 02/19/2024 01:03:22 02/17/20 24 02/17/2024 non-s tress test No observ ation record ed. [email or web address] [address], [place], [address], 02/17/2024 18:46:39 02/17/20 non-s tress test No observ ation record ed. [facility] [address], [place], [address], 02/17/2024 18:48:46 02/24/20 24 02/24/2024 US, svetlanae tric, bioph ysica l profi le + non-s tress test No observ ation record ed. [facility] [address], [place], [address], 02/24/2024 14:24:08 02/24/20 24 02/24/2024 US, obstnelly tric, follo w-up No observ ation record ed. [facility] [address], [place], [address], 02/24/2024 14:24:20 02/24/20 24 02/24/2024 US, obste tric, bioph ysica l profi le + non-s tress test No observ ation record ed. [email or web address] [address], [place], [address], 02/25/2024 11:50:17 02/24/20 24 02/24/2024 non-s tress test No observ ation record ed. [email or web address] [facility], [place], [address], 02/24/2024 12:00:12 03/01/20 24 02/29/2024 imagi ng/di agnos tic resul t No observ ation record ed. [address], [address], 03/01/2024 17:20:31 03/03/20 24 03/03/2024 US, obste tric, bioph ysica l profi le + non-s tress test No observ ation record ed. [email or web address] [facility], [place], [address], 03/03/2024 12:20:34 03/03/20 24 03/03/2024 US, obste tric, bioph ysica l profi le + non-s tress test No observ ation record ed. [email or web address] [address], [place], [address], 03/03/2024 20:54:47 03/03/20 24 03/03/2024 non-s tress test No observ ation record ed. [email or web address] [address], [place], [address], 03/03/2024 14:58:50 03/08/20 24 03/07/2024 imagi ng/di agnos tic resul t No observ ation record ed. [address], [address], 03/09/2024 00:46:18 03/09/20 24 03/09/2024 non-s tress test No observ ation record ed. [email or web address] [address], [place], [address], 03/09/2024 11:26:46 03/14/20 24 03/14/2024 imagi ng/di agnos tic resul t No observ ation record ed. [facility] [place] [address] [place], [address], 03/14/2024 13:30:26 03/17/20 24 03/14/2024 US, obste tric, follo w-up No observ ation record ed. [email or web address] [address], [address], 03/20/2024 15:27:00 Result Notes None recorded. Problems Name Problem SNOMED Code Status Onset Date Resolution Date Notes Provider Name and Address Organization Details Recorded Time 87643956 Active 2023 Jennie shah, [facility] 4 12:13:08 Monosomy X 654871510 Active HR on NIPT, declined CVS/amnio centesis HEIDI COLON MD [address], [place], [address], [facility] 4 12:18:50 Monosomy X 682058091 Active HR on NIPT, declined CVS/amnio centesis HEIDI COLON MD [address], [place], [address], [facility] 4 12:18:50 Body mass index 40+ - severely obese 934388539 Active weekly testing @34wks Jillian shah [facility] 4 15:45:52 Problem Notes None recorded. Procedures Surgical History None recorded. Imaging Results Imaging Date Name Status LastModified by Organiz ation Details LastModified Time 02/01/2024 US, obstetric, follow-up completed [email or web address] [facility] [address], [place], [address], 02/04/2024 10:30:16 02/10/2024 non-stress test completed [email or web address] [address], [place], [address], 02/10/2024 11:58:14 02/10/2024 US, obstetric, biophysical profile + non-stress test completed [email or web address] [address], [place], [address], 02/10/2024 12:45:48 02/10/2024 US, obstetric, biophysical profile + non-stress test completed [email or web address] [address], [place], [address], 02/10/2024 22:00:22 02/17/2024 US, obstetric, biophysical profile + non-stress test completed [email or web address] [address], [place], [address], 02/17/2024 13:14:35 02/17/2024 US, obstetric, biophysical profile + non-stress test completed [email or web address] [address], [place], [address], 02/19/2024 01:03:22 02/17/2024 non-stress test completed [email or web address] [address], [place], [address], 02/17/2024 18:46:39 02/17/2024 non-stress test completed [email or web address] [address], [place], [address], 02/17/2024 18:48:46 02/24/2024 US, obstetric, biophysical profile + non-stress test completed [email or web address] [facility], [place], [address], 02/24/2024 14:24:08 02/24/2024 US, obstetric, follow-up completed [email or web address] [facility], [place], [address], 02/24/2024 14:24:20 02/24/2024 US, obstetric, biophysical profile + non-stress test completed [email or web address] [address], [place], [address], 02/25/2024 11:50:17 02/24/2024 non-stress test completed [place] [address], [place], [address], 02/24/2024 12:00:12 02/29/2024 imaging/diagnos tic result completed [address], [address], 03/01/2024 17:20:31 03/03/2024 US, obstetric, biophysical profile + non-stress test completed [email or web address] [facility] [address], [place], [address], 03/03/2024 12:20:34 03/03/2024 US, obstetric, biophysical profile + non-stress test completed [email or web address] [address], [place], [address], 03/03/2024 20:54:47 03/03/2024 non-stress test completed home [facility], [place], [address], 03/03/2024 14:58:50 03/07/2024 imaging/diagnos tic result completed [facility] [address] [place], [address], 03/09/2024 00:46:18 03/09/2024 non-stress test completed [email or web address] [address], [place], [address], 03/09/2024 11:26:46 03/14/2024 imaging/diagnos tic result active [place] [address], [address], 03/14/2024 13:30:26 03/14/2024 US, obstetric, follow-up completed [email or web address] [address], [address], 03/20/2024 15:27:00 Procedure Notes None recorded. Medical [...] 4 162.56 cm 42.7 kg/m2 99.28 % 828680. 79314 g 116 mm[Hg] 70 mm[Hg] Tammie Haddad [facility] 4 14:25:23 Date Recorded Body height Body mass index (BMI) Percentile per age and sex Body mass index (BMI) Body weight Systolic blood pressure Diastolic blood pressure Provider Name and Address Organization Details Last Updated DateTime 4 162.56 cm 99.24 % 42.6 kg/m2 220327. 91 g 118 mm[Hg] 74 mm[Hg] Maude Peterson [facility] 11:21:38 Social History Question Answer Notes LastModified by Organizat ion Details LastModified Time Tobacco Smoking Status Never Smoker Susana Dove alyssa, [facility] 2023 15:08:14 What [...] Or The Highest Degree You Have Received? GA96524-9 Information not available 2023 Are There Any [...] Anxious, Or Unable To Sleep At Night)? [id number] Information not available 2023 Do You Use Any Illicit Or Recreational Drugs? No Information not available 2023 Do You Use Sunscreen Routinely? No Information not available 2023 Have You Used IV Drugs? No Information not available 2023 Sex: Unknown Functional Status Question Answer Note LastModified by Organizat ion Details LastModified Time Do you have difficulty walking or climbing stairs? No [email or web address] Information not available 01/06/2024 Are you able to walk? YESWOREST Information not available 2023 Are you able to care for yourself? Yes [email or web address] Information not available 01/06/2024 Do you have difficulty dressing or bathing? No [email or web address] Information not available 01/06/2024 What is your [...] Diagnosis/Indication Diagnosis SNOMED-CT Code Diagnosis ICD10 Code [id number] DEANDRA Paul [facility] [address],[place] [address] 2023 14:47:29 2023 17:02:31 Gynecologic examination 75138829 Z01.419 Irregular periods 864080 07 N92.6 test positive 207096464 Z32.01 521963 [facility] [address],[place] [address] 08/04/2023 10:41:02 08/04/2023 11:20:21 Uterine size for dates discrepancy 519949584 O26.841 Z3A.01 278457 HEIDI COLON MD [facility] [address],[place] [address] 08/04/2023 10:41:24 08/08/2023 02:42:56 test positive 076348147 Z32.01 897174 [facility] [address],[place] [address] 09/08/2023 10:59:58 09/08/2023 13:27:16 screening 946070132 Z36.82 O28.0 Z3A.12 332387 HEIDI COLON MD [facility] [address],[place] [address] 09/08/2023 11:00:19 09/08/2023 15:01:28 Gestation period, 12 weeks 46814962 Z3A.12 Sex chromo some aneuploidy 762774861 Q99.8 093015 HEIDI COLON MD [facility] [address],[place] [address] 10/07/2023 11:30:11 10/07/2023 12:20:07 Monosomy X 337377873 Q96.9 Gestation period, 16 weeks 73294509 Z3A.16 003472 HEIDI COLON MD [facility] [address],[place] [address] 11/10/2023 11:49:58 11/10/2023 12:30:55 Monosomy X 217975175 Q96.9 Maternal o besity complicating , childbirth and the puerperium, antepartum 7580882179 07 O99.212 Gestation period, 21 weeks 73497027 Z3A.21 [id number] HEIDI COLON MD [facility] [address],[place] [address] 12/09/2023 11:44:14 12/09/2023 12:19:50 Monosomy X 222619432 Q96.9 Gestation period, 25 weeks 49350720 Z3A.25 032837 HEIDI COLON MD [facility] [address],[place] [address] 01/06/2024 14:02:28 01/06/2024 14:43:21 Monosomy X 572812126 Q96.9 Maternal o besity complicating , childbirth and the puerperium, antepartum 9732298465 07 O99.212 Gestation period, 29 weeks 88250147 Z3A.29 829134 HEIDI COLON MD [facility] [address],[place] [address] 01/20/2024 11:06:31 01/20/2024 12:07:38 Anemia of 45369870 O99.019 Maternal o besity complicating , childbirth and the puerperium, antepartum 4308044086 07 O99.212 Gestation period, 31 weeks 92441999 Z3A.31 401004 HEIDI COLON MD [facility] [address],[place] [address] 02/03/2024 10:35:23 02/03/2024 11:50:26 Nausea and vomiting 87929556 R11.2 Gestation period, 33 weeks 24510189 Z3A.33 Monosomy X 956494418 Q96 .9 [id number] [facility] [address],[place] [address] 02/10/2024 11:07:14 02/10/2024 12:40:48 Gestation period, 34 weeks 89621182 Z3A.34 Monosomy X 361049650 Q96 .9 [id number] Corin Vasquez [facility] [address],[place] [address] 02/10/2024 11:06:55 02/10/2024 12:05:49 Maternal obesity complicating , childbirth and the puerperium, antepartum 7531875196 07 O99.215 424954 [facility] [address],[place] [address] 02/10/2024 11:17:13 02/10/2024 12:10:38 Maternal obesity complicating , childbirth and the puerperium, antepartum 9945890900 07 O99.213 Z3A.34 [id number] [facility] [address],[place] [address] 02/17/2024 10:40:25 02/17/2024 11:08:31 Maternal obesity complicating , childbirth and the puerperium, antepartum 4387959596 07 O99.213 Z3A.35 [id number] Tammie Haddad [facility] [address],[place] [address] 02/17/2024 10:40:37 02/20/2024 03:50:45 Maternal obesity complicating , childbirth and the puerperium, antepartum 4799341026 07 O99.213 [id number] Carlene Macias [facility] [address],[place] [address] 02/17/2024 10:41:04 02/17/2024 12:08:39 Gestation period, 35 weeks 41898844 Z3A.35 Anemia 404185917 D64.9 [id number] [facility] [address],[place] [address] 02/24/2024 10:19:19 02/24/2024 11:26:08 Abnormal hematologic finding on screening of mother 617799390 O28.0 O99.210 O36.60X0 Z3A.36 [id number] Maude Peterson [facility] [address],[place] [address] 02/24/2024 10:19:35 02/24/2024 12:16:41 Maternal obesity complicating , childbirth and the puerperium, antepartum 4440279457 07 O99.212 [id number] HEIDI COLON MD [facility] [address],[place] [address] 02/24/2024 10:19:50 02/24/2024 12:29:46 Nausea and vomiting 91815299 R11.2 Monosomy X 484556063 Q96 .9 Maternal o besity complicating , childbirth and the puerperium, antepartum 6206202703 07 O99.212 Gestation period, 36 weeks 55520210 Z3A.36 675459 Tyra Miller [facility] [address],[place] [address] 03/03/2024 10:29:16 03/03/2024 10:58:26 Maternal obesity complicating , childbirth and the puerperium, antepartum 7882335566 07 O99.213 Z3A.37 550679 [facility] [address],[place] [address] 03/03/2024 10:29:50 03/03/2024 15:01:11 Maternal obesity complicating , childbirth and the puerperium, antepartum 6035621442 07 O99.212 [id number] HEIDI COLON MD [facility] [address],[place] [address] 03/04/2024 14:12:07 03/04/2024 14:52:49 Monosomy X 876527683 Q96.9 Maternal o besity complicating , childbirth and the puerperium, antepartum 0208170033 07 O99.212 Gestation period, 37 weeks 33323839 Z3A.37 [id number] Maude Peterson [facility] [address],[place] [address] 03/09/2024 10:17:13 03/09/2024 11:28:51 Maternal obesity complicating , childbirth and the puerperium, antepartum 1448339836 07 O99.212 [id number] HEIDI COLON MD [facility] [address] [address] 03/09/2024 10:17:23 03/09/2024 11:59:43 Monosomy X 122183244 Q96.9 Maternal o besity complicating , childbirth and the puerperium, antepartum 5885202668 07 O99.212 Gestation period, 38 weeks 27214374 Z3A.38 Health Concerns Section Related Observation LastModified by Organization Detai ls LastModified Time None Recorded Concern Status LastModified by Organization Details LastModified Time None Recorded Advance Directives Directive None Recorded Payers Encounter Date Sequence Insurance Name Policy Number Policy Kraus Covered Member ID Kraus Member ID Guarantor Name 03/03/2024 1 [employer] [place] [id number] 0003 Loulou Chang [id number] [facility] 03/04/2024 1 [employer] [place] [id number] 0003 Loulou Chang [id number] [facility] 03/09/2024 1 [employer] [place] [id number] 0003 Loulou Chang [id number] [facility] 03/09/2024 1 [employer] [place] [id number] 0003 Loulou Chang [id number] [facility] OBGyn Episode Ob Episode Information Episode Created Date Number of Fetuses Patient Bloodtype Patient rh Status Prepregnancy Weight lbs Domestic Partner Domestic Partner Phone Father Name Head Of Data Status 09/08/19 24 1 O Positive 244.2 OPEN Fetus Data First Name Last Name Admitted to NICU Weight (g) Sex Living Outcome Pediatric Complications Fetus ID Race Codes Race Delivery Type [id number] Problems Problem Notes MFM: 09/13 with genetic couns elor & [employer] ultrasound, declined CVS10/11 @945 US & 11/08 945 [facility] Problem Name Start Date End Date Resolution Snomed Code Not e Body mass index 40+ - severely obese 640233623 weekly testin g @34wks Monosomy X 325352239 HR on NIP T, declined CVS/amniocentesis Angus [...] Date Ultra Sound Latest Days Gestation 0 [email or web address] 09/08/2023 03/22/20 24 0 Pre- Flowsheet Flowsheet [...] Weight in lbs Pre/Post Dialysis Refused Weight 237.983904628783 BP Diastolic BP Location Tested BP Systolic BP Type 66 100 Fetus Heart Rate Present A 165 Fetus Movement Comments Patient presents to [facility] care. Nausea improved, no bleeding or cramping. complicated by high risk NIPT for monosomy X. Referral sent to [facility]. Discussed amniocentesis for diagnostic testing. Discussed risks of monosomy X. NT/NB wnl today. Other OB labs wnl. RTC 4 weeks, will follow up [facility] referral. Flowsheet Date 10/07/2023 Lewis Score Blood Edema Fundus Height Fundus Units Glucose Ketones Leukocytes Nitrite Labor Signs Protein Cervic Dilation Cervic Effacement Cervic Station Type Weight in lbs Pre/Post Dialysis Refused Weight 236.265219341498 BP Diastolic BP Location Tested BP Systolic BP Type 72 116 Fetus Heart Rate Present A 160 Fetus Movement A No Comments Doing well, no movemen t yet. No cramping, bleeding or nausea. Saw [facility] for HR Monosomy X on NIPT, declined CVS/amnio. Has follow up visit with them on Thursday. Discussed anatomy US with [facility], otherwise normal care in 4 weeks. 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 RTC 2 weeks. Flowsheet Date 01/20/2024 Lewis Score Blood Edema Fundus Height Fundus Units Glucose Ketones Leukocytes Nitrite Labor Signs Protein Cervic Dilation Cervic Effacement Cervic Station neg none none trace Type Weight in lbs Pre/Post Dialysis Refused Weight 246.817259947895 BP Diastolic BP Location Tested BP Systolic [...] Weight in lbs Pre/Post Dialysis Refused Weight 246.329174194386 BP Diastolic BP Location Tested BP Systolic [...] Weight in lbs Pre/Post Dialysis Refused Weight 249.541248489874 BP Diastolic BP Location Tested BP Systolic [...] Weight in lbs Pre/Post Dialysis Refused Weight 247.481775442472 BP Diastolic BP Location Tested BP Systolic BP Type 77 122 Fetus Heart Rate Present Fetus Movement Comments Flowsheet Date 02/17/2024 Lewis Score Blood Edema Fundus Height Fundus Units Glucose Ketones Leukocytes Nitrite Labor Signs Protein Cervic Dilation Cervic Effacement Cervic Station none Type Weight in lbs Pre/Post Dialysis Refused Weight 247.970290165741 BP Diastolic BP Location Tested BP Systolic [...] Weight in lbs Pre/Post Dialysis Refused Weight 248.346897975136 BP Diastolic BP Location Tested BP Systolic [...] Type Weight in lbs Pre/Post Dialysis Refused 249.835057721588 BP Diastolic BP Location Tested BP Systolic [...] Weight in lbs Pre/Post Dialysis Refused Weight 248.845498471011 BP Diastolic BP Location Tested BP Systolic BP Type 74 L arm 118 sitting Fetus Heart Rate Present A 140 Fetus Movement A Yes Comments Good movement. No ctx, LOF, VB. Will move induction from 03/15 to 03/16 due to staffing issues at [place]. BPP 10/28 at [facility] Thursday, NST reactive today. Labor precautions reviewed. Menstrual History Last Menstrual Date Menses Monthly On Bcp Conception Prior Menses Frequency Hcg Plus Date Menarche Onset Age 0306/03/2023 Genetic Screening And Infection History Question Response Note Mental Retardation/Autism false Patient's Age Will Be 35 Years Or Older At Estim ated Date of Delivery false Thalassemia (Sudanese, Canadian, Mediterranean, Or Background): MCV < 80 false Neural Tube Defect (Meningomyelocele, Spina Bifi da, Or Anencephaly) false Congenital Heart Defect false Down Syndrome false Ben-Sachs (eg, Religious, Cajun, [place]ian-[place]) f alse Juve Disease false Sickle Cell Disease Or Trait () false Hemophilia Or Other Blood Disorders false Muscular Dystrophy false Cystic Fibrosis false Oark's Chorea false Intellectual Disability/Autism false If Yes, [...]
--- OUTSIDE RECORDS SUMMARY | 2024-03-25 06:49 | XMS_ITS | Continuity of Care Document ---
Author Organization [facility] Harold Address [address] [place] [address] Assessment No assessment recorded. Plan of Treatment Reminders Order Date Submit Date Provider Last Modified By Organization Details Last Modified Time Details Appointments SURG POST OP 025 10:45AM HEIDI COLON MD Not available Not available Not available Lab None record ed. Referral None record ed. Procedures None record ed. Surgeries None record ed. Imaging non-st ress test 024 03/09/20 24 [email or web address] [address], [address], [place], [address], 03/09/2024 11:28:52 Medication Orders None record ed. Patient TargetsNo targets recorded. Patient InstructionsNo instructions recorded. Reason for Referral None Reported. Results Created Date Observation Date Name Description Value Unit Range Abnormal Flag Note LastModifiedBy Organization Detail LastModifiedTime 09/08/19 24 09/08/2023 US, obste tric, nucha l trans lucen cy No observ ation record ed. RENOEARNEST [address], [facility], [place], [address], 09/10/2023 10:53:56 09/08/19 24 09/08/2023 US, obste tric, nucha l trans lucen cy No observ ation record ed. [email or web address] Harold [address], [place], [address], 09/08/2023 13:17:08 09/14/19 24 09/14/2023 US, obste tric, follo w-up No observ ation record ed. [email or web address] [facility] [address] [place] [address], [place], [address], 09/16/2023 14:33:23 09/14/19 24 09/14/2023 US, obste tric, trans abdom inal No observ ation record ed. [email or web address] [facility] [address], [place], [address], 09/15/2023 15:09:15 10/12/19 24 10/12/2023 US, obste tric No observ ation record ed. [email or web address] [facility] [address], [place], [address], 10/13/2023 16:44:42 11/09/19 24 11/09/2023 US, obste tric, follo w-up No observ ation record ed. [facility] [address], [place], [address], 11/10/2023 16:45:37 12/07/19 24 12/07/2023 imagi ng/di agnos tic resul t No observ ation record ed. [facility] [address], [place], [address], 12/11/2023 10:32:37 01/04/20 24 01/04/2024 imagi ng/di agnos tic resul t No observ ation record ed. [facility] [address], [place], [address], 01/07/2024 12:12:29 02/02/20 24 02/01/2024 US, obste tric, follo w-up No observ ation record ed. [email or web address] [facility] [address] [facility], [place], [address], 02/04/2024 10:30:16 02/10/20 24 02/10/2024 non-s tress test No observ ation record ed. [email or web address] Harold [address], [place], [address], 02/10/2024 11:58:14 02/10/20 24 02/10/2024 US, obste tric, bioph ysica l profi le + non-s tress test No observ ation record ed. [email or web address] Harold [address], [place], [address], 02/10/2024 12:45:48 02/10/20 24 02/10/2024 US, obste tric, bioph ysica l profi le + non-s tress test No observ ation record ed. [email or web address] [address], [place], [address], 02/10/2024 22:00:22 02/17/20 24 02/17/2024 US, obste tric, bioph ysica l profi le + non-s tress test No observ ation record ed. [email or web address] [facility] [address], [place], [address], 02/17/2024 13:14:35 02/17/20 24 02/17/2024 US, obste tric, bioph ysica l profi le + non-s tress test No observ ation record ed. [email or web address] [address], [place], [address], 02/19/2024 01:03:22 02/17/20 24 02/17/2024 non-s tress test No observ ation record ed. [email or web address] Harold [address], [place], [address], 02/17/2024 18:46:39 02/17/20 non-s tress test No observ ation record ed. [email or web address] Harold [address], [place], [address], 02/17/2024 18:48:46 02/24/20 24 02/24/2024 US, obste tric, bioph ysica l profi le + non-s tress test No observ ation record ed. [facility] [address], [place], [address], 02/24/2024 14:24:08 02/24/20 24 02/24/2024 US, obste tric, follo w-up No observ ation record ed. [facility] [address], [place], [address], 02/24/2024 14:24:20 02/24/20 24 02/24/2024 US, obste tric, bioph ysica l profi le + non-s tress test No observ ation record ed. [email or web address] [address], [facility], [place], [address], 02/25/2024 11:50:17 02/24/20 24 02/24/2024 non-s tress test No observ ation record ed. [email or web address] Harold [address], [place], [address], 02/24/2024 12:00:12 03/01/20 24 02/29/2024 imagi ng/di agnos tic resul t No observ ation record ed. [facility] [address] [place] [address], [address], 03/01/2024 17:20:31 03/03/20 24 03/03/2024 US, obste tric, bioph ysica l profi le + non-s tress test No observ ation record ed. [email or web address] Harold [address], [place], [address], 03/03/2024 12:20:34 03/03/20 24 03/03/2024 US, obste tric, bioph ysica l profi le + non-s tress test No observ ation record ed. [email or web address] [address], [place], [address], 03/03/2024 20:54:47 03/03/20 24 03/03/2024 non-s tress test No observ ation record ed. [email or web address] Harold [address], [place], [address], 03/03/2024 14:58:50 03/08/20 24 03/07/2024 imagi ng/di agnos tic resul t No observ ation record ed. [facility] [address], [address], 03/09/2024 00:46:18 03/09/20 24 03/09/2024 non-s tress test No observ ation record ed. [email or web address] Harold [address], [place], [address], 03/09/2024 11:26:46 03/14/20 24 03/14/2024 imagi ng/di agnos tic resul t No observ ation record ed. [facility] [address] [place] [address], [address], 03/14/2024 13:30:26 03/17/20 24 03/14/2024 US, obste tric, follo w-up No observ ation record ed. [email or web address] [facility] [address], [address], 03/20/2024 15:27:00 Result Notes None recorded. Problems Name Problem SNOMED Code Status Onset Date Resolution Date Notes Provider Name and Address Organization Details Recorded Time 53090624 Active 2023 Jennie Grossman [facility] 4 12:13:08 Monosomy X 944284111 Active HR on NIPT, declined CVS/amnio centesis HEIDI COLON MD [address], [place], [address], [facility] 4 12:18:50 Monosomy X 559630082 Active HR on NIPT, declined CVS/amnio centesis HEIDI COLON MD [address], [place], [address], [facility] 4 12:18:50 Body mass index 40+ - severely obese 013607564 Active weekly testing @34wks Jillian Morin [facility] 4 15:45:52 Problem Notes None recorded. Procedures Surgical History None recorded. Imaging Results Imaging Date Name Status LastModified by Organiz ation Details LastModified Time 03/09/2024 non-stress test completed [email or web address] [facility] [address], [place], [address], 03/09/2024 11:26:46 Procedure Notes None recorded. Medical [...] 4 162.56 cm 99.24 % 42.6 kg/m2 935516. 91 g 118 mm[Hg] 74 mm[Hg] Maude Peterson [facility] 11:21:38 Social History Question Answer Notes LastModified by Organizat ion Details LastModified Time Tobacco Smoking Status Never Smoker Susana Dove null, [facility] 2023 15:08:14 What Is Your [...] Or The Highest Degree You Have Received? [id number] Information not available 2023 Are There Any [...] Anxious, Or Unable To Sleep At Night)? [id number] Information not available 2023 Do You Use Any Illicit Or Recreational Drugs? No Information not available 2023 Do You Use Sunscreen Routinely? No Information not available 2023 Have You Used IV Drugs? No Information not available 2023 Sex: Unknown Functional Status Question Answer Note LastModified by Organizat ion Details LastModified Time Do you have difficulty walking or climbing stairs? No [email or web address] Information not available 01/06/2024 Are you able to walk? YESWOREST Information not available 2023 Are you able to care for yourself? Yes [email or web address] Information not available 01/06/2024 Do you have difficulty dressing or bathing? No [email or web address] Information not available 01/06/2024 What is your [...] Diagnosis/Indication Diagnosis SNOMED-CT Code Diagnosis ICD10 Code [id number] Carlene Buddy Macias CNM Harold [address],[place] [address] 02/10/2024 11:07:14 02/10/2024 12:40:48 Gestation period, 34 weeks 15586454 Z3A.34 Monosomy X 606814696 Q96 .9 [id number] Corin [facility] [address],[place] [address] 02/10/2024 11:06:55 02/10/2024 12:05:49 Maternal obesity complicating , childbirth and the puerperium, antepartum 8469000950 07 O99.215 [id number] [facility] [address],[place] [address] 02/10/2024 11:17:13 02/10/2024 12:10:38 Maternal obesity complicating , childbirth and the puerperium, antepartum 6749468306 07 O99.213 Z3A.34 [id number] [facility] [address],[place] [address] 02/17/2024 10:40:25 02/17/2024 11:08:31 Maternal obesity complicating , childbirth and the puerperium, antepartum 2387236125 07 O99.213 Z3A.35 [id number] Tammie Haddad Harold [address],[place] [address] 02/17/2024 10:40:37 02/20/2024 03:50:45 Maternal obesity complicating , childbirth and the puerperium, antepartum 7625381984 07 O99.213 [id number] Carlene Macias CNM [facility] [address],[place] [address] 02/17/2024 10:41:04 02/17/2024 12:08:39 Gestation period, 35 weeks 49600757 Z3A.35 Anemia 279237737 D64.9 [id number] Anamaria Shamar [facility] [address],[place] [address] 02/24/2024 10:19:19 02/24/2024 11:26:08 Abnormal hematologic finding on screening of mother 099682648 O28.0 O99.210 O36.60X0 Z3A.36 [id number] Maude Peterson Harold [address],[place] [address] 02/24/2024 10:19:35 02/24/2024 12:16:41 Maternal obesity complicating , childbirth and the puerperium, antepartum 9952917646 07 O99.212 [id number] HEIDI COLON MD Harold [address],[place] [address] 02/24/2024 10:19:50 02/24/2024 12:29:46 Nausea and vomiting 63619560 R11.2 Monosomy X 082936052 Q96 .9 Maternal o besity complicating , childbirth and the puerperium, antepartum 2591079103 07 O99.212 Gestation period, 36 weeks 95175481 Z3A.36 [id number] Tyra Miller [facility] [address],[place] [address] 03/03/2024 10:29:16 03/03/2024 10:58:26 Maternal obesity complicating , childbirth and the puerperium, antepartum 7226727171 07 O99.213 Z3A.37 [id number] Maude Peterson [facility] [address],[place] [address] 03/03/2024 10:29:50 03/03/2024 15:01:11 Maternal obesity complicating , childbirth and the puerperium, antepartum 0814463400 07 O99.212 [id number] HEIDI COLON MD Harold [address],[place] [address] 03/04/2024 14:12:07 03/04/2024 14:52:49 Monosomy X 639281565 Q96.9 Maternal o besity complicating , childbirth and the puerperium, antepartum 6275570144 07 O99.212 Gestation period, 37 weeks 91783821 Z3A.37 [id number] Maude Peterson [facility] [address],[place] [address] 03/09/2024 10:17:13 03/09/2024 11:28:51 Maternal obesity complicating , childbirth and the puerperium, antepartum 3950924106 07 O99.212 [id number] HEIDI COLON MD Harold [address],[place] [address] 03/09/2024 10:17:23 03/09/2024 11:59:43 Monosomy X 989892194 Q96.9 Maternal o besity complicating , childbirth and the puerperium, antepartum 7625528123 07 O99.212 Gestation period, 38 weeks 43670137 Z3A.38 Health Concerns Section Related Observation LastModified by Organization Detai ls LastModified Time None Recorded Concern Status LastModified by Organization Details LastModified Time None Recorded Payers Encounter Date Sequence Insurance Name Policy Number Policy Kraus Covered Member ID Kraus Member ID Guarantor Name 03/09/2024 1 [facility] (MEDICAID HMO) [id number] Loulou Chang [id number] Dudley Natarajan OBGyn Episode Ob Episode Information Episode Created Date Number of Fetuses Patient Bloodtype Patient rh Status Prepregnancy Weight lbs Domestic Partner Domestic Partner Phone Father Name Broommaker Status 09/08/19 24 1 O Positive 244.2 OPEN Fetus Data First Name Last Name Admitted to NICU Weight (g) Sex Living Outcome Pediatric Complications Fetus ID Race Codes Race Delivery Type [id number] Problems Problem Notes MFM: 09/13 with genetic couns elor & [facility] ultrasound, declined CVS10/11 @945 US & 11/08 945 US [facility] Problem Name Start Date End Date Resolution Snomed Code Not e Body mass index 40+ - severely obese 296020574 weekly testin g @34wks Monosomy X 267193951 HR on NIP T, declined CVS/amniocentesis Angus [...] Date Ultra Sound Latest Days Gestation 0 [email or web address] 09/08/2023 03/22/20 24 0 Pre-jerri Flowsheet Flowsheet [...] Weight in lbs Pre/Post Dialysis Refused Weight 237.020113506164 BP Diastolic BP Location Tested BP Systolic BP Type 66 100 Fetus Heart Rate Present A 165 Fetus Movement Comments Patient presents to [facility] care. Nausea improved, no bleeding or cramping. complicated by high risk NIPT for monosomy X. Referral sent to [facility]. Discussed amniocentesis for diagnostic testing. Discussed risks of monosomy X. NT/NB wnl today. Other OB labs wnl. RTC 4 weeks, will follow up [facility] referral. Flowsheet Date 10/07/2023 Lewis Score Blood Edema Fundus Height Fundus Units Glucose Ketones Leukocytes Nitrite Labor Signs Protein Cervic Dilation Cervic Effacement Cervic Station Type Weight in lbs Pre/Post Dialysis Refused Weight 236.173677476857 BP Diastolic BP Location Tested BP Systolic [...] Weight in lbs Pre/Post Dialysis Refused Weight 237.640696243291 BP Diastolic BP Location Tested BP Systolic [...] Type Weight in lbs Pre/Post Dialysis Refused 238.003010448725 BP Diastolic BP Location Tested BP Systolic [...] Type Weight in lbs Pre/Post Dialysis Refused 243.236035194231 BP Diastolic BP Location Tested BP Systolic BP Type 76 L arm 122 sitting Fetus Heart Rate Present Fetus Movement A Yes Comments Good movement. No cram ping or bleeding. Repeat growth with MFM, EFW 75%. Continue serial growth US per [facility]. GCT and labs today. Discussed tdap vaccine. Desires EIL on 03/15 as partner is going to basic training for the army. 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 RTC 2 weeks. Flowsheet Date 01/20/2024 Lewis Score Blood Edema Fundus Height Fundus Units Glucose Ketones Leukocytes Nitrite Labor Signs Protein Cervic Dilation Cervic Effacement Cervic Station neg none none trace Type Weight in lbs Pre/Post Dialysis Refused Weight 246.814861426598 BP Diastolic BP Location Tested BP Systolic [...] Weight in lbs Pre/Post Dialysis Refused Weight 246.370537686988 BP Diastolic BP Location Tested BP Systolic BP Type 66 L arm 118 sitting Fetus Heart Rate Present Fetus Movement A Yes Comments Patient c/o of some nausea a nd [place]. No bleeding. Good movement. Had MFM [...] Weight in lbs Pre/Post Dialysis Refused Weight 249.483229857777 BP Diastolic BP Location Tested BP Systolic [...] Weight in lbs Pre/Post Dialysis Refused Weight 247.334046898924 BP Diastolic BP Location Tested BP Systolic BP Type 77 122 Fetus Heart Rate Present Fetus Movement Comments Flowsheet Date 02/17/2024 Lewis Score Blood Edema Fundus Height Fundus Units Glucose Ketones Leukocytes Nitrite Labor Signs Protein Cervic Dilation Cervic Effacement Cervic Station none Type Weight in lbs Pre/Post Dialysis Refused Weight 247.083805017176 BP Diastolic BP Location Tested BP Systolic [...] Weight in lbs Pre/Post Dialysis Refused Weight 248.644608771208 BP Diastolic BP Location Tested BP Systolic [...] Type Weight in lbs Pre/Post Dialysis Refused 249.902974833711 BP Diastolic BP Location Tested BP Systolic [...] Weight in lbs Pre/Post Dialysis Refused Weight 248.769949888071 BP Diastolic BP Location Tested BP Systolic BP Type 74 L arm 118 sitting Fetus Heart Rate Present A 140 Fetus Movement A Yes Comments Good movement. No ctx, LOF, VB. Will move induction from 03/15 to 03/16 due to staffing issues at [facility]. BPP 10/28 at [facility] Thursday, NST reactive today. Labor precautions reviewed. Menstrual History Last Menstrual Date Menses Monthly On Bcp Conception Prior Menses Frequency Hcg Plus Date Menarche Onset Age 0306/03/2023 Genetic Screening And Infection History Question Response Note Mental Retardation/Autism false Patient's Age Will Be 35 Years Or Older At Estim ated Date of Delivery false Thalassemia (Bengali, Bruneian, Mediterranean, Or Background): MCV < 80 false Neural Tube Defect (Meningomyelocele, Spina Bifi da, Or Anencephaly) false Congenital Heart Defect false Down Syndrome false Ben-Sachs (eg, Orthodoxy, Cajun, Turkmen-Ponce) f alse Juve Disease false Sickle Cell Disease Or Trait () false Hemophilia Or Other Blood Disorders false Muscular Dystrophy false Cystic Fibrosis false Fayette's Chorea false Intellectual Disability/Autism false If Yes, [...]
--- OUTSIDE RECORDS SUMMARY | 2024-03-25 06:49 | XMS_ITS | Continuity of Care Document ---
Author Organization [facility] [place] Address [address] [place] [place] [address] [place] [address] Assessment No assessment recorded. Plan of Treatment Reminders Order Date Submit Date Provider Last Modified By Organization Details Last Modified Time Details Appointments SURG POST OP 2024 10:45A Dayton COLON MD Not available Not available Not available Lab None recorded. Referral None recorded. Procedures None recorded. Surgeries None recorded. Imaging US, obstetric , biophysic al profile + non-stres s test [address] [facility] [address], [address], [place], [address], 02/24/2024 14:14:53 US, obstetric , follow-up [address] [facility] [address], [address], [place], [address], 02/24/2024 14:14:53 Medication Orders None recorded. Patient TargetsNo targets recorded. Patient InstructionsNo instructions recorded. Reason for Referral None Reported. Results Created Date Observation Date Name Description Value Unit Range Abnormal Flag Note LastModifiedBy Organization Detail LastModifiedTime 09/08/19 24 09/08/2023 US, obste tric, nucha l trans lucen cy No observ ation record ed. RENOEARNEST [address], [place], [address], 09/10/2023 10:53:56 09/08/19 24 09/08/2023 US, obste tric, nucha l trans lucen cy No observ ation record ed. [email or web address] [place] [address], [place], [address], 09/08/2023 13:17:08 09/14/19 24 09/14/2023 US, obste tric, follo w-up No observ ation record ed. [email or web address] [facility] [address] [facility], [place], [address], 09/16/2023 14:33:23 09/14/19 24 09/14/2023 US, obste tric, trans abdom inal No observ ation record ed. [place] [address] [facility] [address], [place], [address], 09/15/2023 15:09:15 10/12/19 24 10/12/2023 US, obste tric No observ ation record ed. [place] [address] [facility] [address], [place], [address], 10/13/2023 16:44:42 11/09/19 24 11/09/2023 US, obste tric, follo w-up No observ ation record ed. [email or web address] [facility] [address], [place], [address], 11/10/2023 16:45:37 12/07/19 24 12/07/2023 imagi ng/di agnos tic resul t No observ ation record ed. [facility] [address], [place], [address], 12/11/2023 10:32:37 01/04/20 24 01/04/2024 imagi ng/di agnos tic resul t No observ ation record ed. [facility] [address], [place], [address], 01/07/2024 12:12:29 02/02/20 24 02/01/2024 US, obste tric, follo w-up No observ ation record ed. [email or web address] [facility] [address], [place], [address], 02/04/2024 10:30:16 02/10/20 24 02/10/2024 non-s tress test No observ ation record ed. [email or web address] [place] [address], [place], [address], 02/10/2024 11:58:14 02/10/20 24 02/10/2024 US, obste tric, bioph ysica l profi le + non-s tress test No observ ation record ed. [email or web address] [place] [address], [place], [address], 02/10/2024 12:45:48 02/10/20 24 02/10/2024 US, obste tric, bioph ysica l profi le + non-s tress test No observ ation record ed. [email or web address] [address], [place], [address], 02/10/2024 22:00:22 02/17/20 24 02/17/2024 US, obste tric, bioph ysica l profi le + non-s tress test No observ ation record ed. [email or web address] [place] [address], [place], [address], 02/17/2024 13:14:35 02/17/20 24 02/17/2024 US, obste tric, bioph ysica l profi le + non-s tress test No observ ation record ed. [email or web address] [address], [place], [address], 02/19/2024 01:03:22 02/17/20 24 02/17/2024 non-s tress test No observ ation record ed. [email or web address] [place] [address], [place], [address], 02/17/2024 18:46:39 02/17/20 non-s tress test No observ ation record ed. [email or web address] [place] [address], [place], [address], 02/17/2024 18:48:46 02/24/2002/24/2024 US, obste tric, bioph ysica l profi le + non-s tress test No observ ation record ed. [facility] [address], [place], [address], 02/24/2024 14:24:08 02/24/20 24 02/24/2024 US, obste tric, follo w-up No observ ation record ed. [facility] [address], [place], [address], 02/24/2024 14:24:20 02/24/20 24 02/24/2024 US, obste tric, bioph ysica l profi le + non-s tress test No observ ation record ed. [email or web address] [address], [place], [address], 02/25/2024 11:50:17 02/24/2002/24/2024 non-s tress test No observ ation record ed. [email or web address] [place] [address], [place], [address], 02/24/2024 12:00:12 03/01/20 24 02/29/2024 imagi ng/di agnos tic resul t No observ ation record ed. [facility] [address] [place] [address], [address], 03/01/2024 17:20:31 03/03/20 24 03/03/2024 US, obste tric, bioph ysica l profi le + non-s tress test No observ ation record ed. [email or web address] [place] [address], [place], [address], 03/03/2024 12:20:34 03/03/20 24 03/03/2024 US, obste tric, bioph ysica l profi le + non-s tress test No observ ation record ed. [email or web address] [address], [place], [address], 03/03/2024 20:54:47 03/03/20 24 03/03/2024 non-s tress test No observ ation record ed. [email or web address] [place] [address], [place], [address], 03/03/2024 14:58:50 03/08/20 24 03/07/2024 imagi ng/di agnos tic resul t No observ ation record ed. [facility] [address], [address], 03/09/2024 00:46:18 03/09/20 24 03/09/2024 non-s tress test No observ ation record ed. [email or web address] [place] [address], [place], [address], 03/09/2024 11:26:46 03/14/20 24 03/14/2024 imagi ng/di agnos tic resul t No observ ation record ed. [facility] [address], [address], 03/14/2024 13:30:26 03/17/20 24 03/14/2024 US, obste tric, follo w-up No observ ation record ed. [facility] [place], [address], 03/20/2024 15:27:00 Result Notes None recorded. Problems Name Problem SNOMED Code Status Onset Date Resolution Date Notes Provider Name and Address Organization Details Recorded Time 27868596 Active 2023 Jennie shah, [facility] 4 12:13:08 Monosomy X 759301145 Active HR on NIPT, declined CVS/amnio centesis HEIDI COLON MD [address], [place], [address], [facility] 4 12:18:50 Monosomy X 012038701 Active HR on NIPT, declined CVS/amnio centesis HEIDI COLON MD [address], [place], [address], [facility] 4 12:18:50 Body mass index 40+ - severely obese 759526603 Active weekly testing @34wks Jillian Mikel [facility], [facility] 4 15:45:52 Problem Notes None recorded. Procedures Surgical History None recorded. Imaging Results Imaging Date Name Status LastModified by Organiz ation Details LastModified Time 02/24/2024 US, obstetric, biophysical profile + non-stress test completed [facility] [address], [place], [address], 02/24/2024 14:24:08 02/24/2024 US, obstetric, follow-up completed [facility] [address], [place], [address], 02/24/2024 14:24:20 02/24/2024 US, obstetric, biophysical profile + non-stress test completed [email or web address] [address], [place], [address], 02/25/2024 11:50:17 Procedure Notes None recorded. Medical [...] DateTime 162.56 cm 99.26 % 42.6 kg/m2 981400. 91 g 116 mm[Hg] 71 mm[Hg] Maude Peterson [facility] 11:58:46 Social History Question Answer [...] Or The Highest Degree You Have Received? [id number] Information not available 2023 Are There Any [...] Anxious, Or Unable To Sleep At Night)? [id number] Information not available 2023 Do You Use Any Illicit Or Recreational Drugs? No Information not available 2023 Do You Use Sunscreen Routinely? No Information not available 2023 Have You Used IV Drugs? No Information not available 2023 Sex: Unknown Functional Status Question Answer Note LastModified by Organizat ion Details LastModified Time Do you have difficulty walking or climbing stairs? No [email or web address] Information not available 01/06/2024 Are you able to walk? YESWOREST Information not available 2023 Are you able to care for yourself? Yes [email or web address] Information not available 01/06/2024 Do you have difficulty dressing or bathing? No [email or web address] Information not available 01/06/2024 What is your [...] Diagnosis/Indication Diagnosis SNOMED-CT Code Diagnosis ICD10 Code [id number] HEIDI COLON MD [place] [address],[facility] [place] [address] 02/03/2024 10:35:23 02/03/2024 11:50:26 Nausea and vomiting 08415245 R11.2 Gestation period, 33 weeks 99744168 Z3A.33 Monosomy X 697547638 Q96 .9 [id number] Carlene Macisa CNM [place] [address],[facility] [place] [address] 02/10/2024 11:07:14 02/10/2024 12:40:48 Gestation period, 34 weeks 78748585 Z3A.34 Monosomy X 814097025 Q96 .9 [id number] Corin Christina [place] [address],[place] [address] 02/10/2024 11:06:55 02/10/2024 12:05:49 Maternal obesity complicating , childbirth and the puerperium, antepartum 9050958328 07 O99.215 [id number] [facility] [address],[place] [address] 02/10/2024 11:17:13 02/10/2024 12:10:38 Maternal obesity complicating , childbirth and the puerperium, antepartum 2760045708 07 O99.213 Z3A.34 [id number] [facility] [address],[place] [address] 02/17/2024 10:40:25 02/17/2024 11:08:31 Maternal obesity complicating , childbirth and the puerperium, antepartum 0312545423 07 O99.213 Z3A.35 [id number] Tammie Haddad [place] [address],[place] [address] 02/17/2024 10:40:37 02/20/2024 03:50:45 Maternal obesity complicating , childbirth and the puerperium, antepartum 3323839897 07 O99.213 [id number] Carlene Macias [facility] [address],[place] [address] 02/17/2024 10:41:04 02/17/2024 12:08:39 Gestation period, 35 weeks 13368719 Z3A.35 Anemia 909285442 D64.9 [id number] [facility] [address],[place] [address] 02/24/2024 10:19:19 02/24/2024 11:26:08 Abnormal hematologic finding on screening of mother 986245084 O28.0 O99.210 O36.60X0 Z3A.36 [id number] Maude Peterson [place] [address],[place] [address] 02/24/2024 10:19:35 02/24/2024 12:16:41 Maternal obesity complicating , childbirth and the puerperium, antepartum 5670084475 07 O99.212 [id number] HEIDI COLON MD [place] [address] [address] 02/24/2024 10:19:50 02/24/2024 12:29:46 Nausea and vomiting 07025901 R11.2 Monosomy X 527943459 Q96 .9 Maternal o besity complicating , childbirth and the puerperium, antepartum 0845765040 07 O99.212 Gestation period, 36 weeks 76216037 Z3A.36 Health Concerns Section Related Observation LastModified by Organization Detai ls LastModified Time None Recorded Concern Status LastModified by Organization Details LastModified Time None Recorded Payers Encounter Date Sequence Insurance Name Policy Number Policy Kraus Covered Member ID Kraus Member ID Guarantor Name 02/24/2024 1 [facility] (MEDICAID HMO) [id number] Loulou Chang [id number] Dudley Natarajan OBGyn Episode Ob Episode Information Episode Created Date Number of Fetuses Patient Bloodtype Patient rh Status Prepregnancy Weight lbs Domestic Partner Domestic Partner Phone Father Name Hospice Director Status 09/08/19 24 1 O Positive 244.2 OPEN Fetus Data First Name Last Name Admitted to NICU Weight (g) Sex Living Outcome Pediatric Complications Fetus ID Race Codes Race Delivery Type [id number] Problems Problem Notes MFM: 09/13 with genetic couns elor & 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 ultrasound, declined CVS10/11 @945 US & 11/08 945 US [facility] Problem Name Start Date End Date Resolution Snomed Code Not e Body mass index 40+ - severely obese 237903092 weekly testin g @34wks Monosomy X 317518764 HR on NIP T, declined CVS/amniocentesis Angus [...] Date Ultra Sound Latest Days Gestation 0 [email or web address] 09/08/2023 03/22/20 24 0 Pre- Flowsheet Flowsheet [...] Weight in lbs Pre/Post Dialysis Refused Weight 237.404205533583 BP Diastolic BP Location Tested BP Systolic BP Type 66 100 Fetus Heart Rate Present A 165 Fetus Movement Comments Patient presents to [facility]. Nausea improved, no bleeding or cramping. complicated by high risk NIPT for monosomy X. Referral sent to [facility]. Discussed amniocentesis for diagnostic testing. Discussed risks of monosomy X. NT/NB wnl today. Other OB labs wnl. RTC 4 weeks, will follow up [facility] referral. Flowsheet Date 10/07/2023 Lewis Score Blood Edema Fundus Height Fundus Units Glucose Ketones Leukocytes Nitrite Labor Signs Protein Cervic Dilation Cervic Effacement Cervic Station Type Weight in lbs Pre/Post Dialysis Refused Weight 236.490926428028 BP Diastolic BP Location Tested BP Systolic BP Type 72 116 Fetus Heart Rate Present A 160 Fetus Movement A No Comments Doing well, no movemen t yet. No cramping, bleeding or nausea. Saw [facility] for HR Monosomy X on NIPT, declined CVS/amnio. Has follow up visit with them on Thursday. Discussed anatomy US with [facility], otherwise normal care in 4 weeks. Flowsheet Date 11/10/2023 Lewis Score Blood Edema Fundus Height Fundus Units Glucose Ketones Leukocytes Nitrite Labor Signs Protein Cervic Dilation Cervic Effacement Cervic Station Type Weight in lbs Pre/Post Dialysis Refused Weight 237.635026407268 BP Diastolic BP Location Tested BP Systolic BP Type 61 108 Fetus Heart Rate Present A 145 Fetus Movement A Yes Comments Baby moving well. Had anatom y US with [facility] yesterday, incomplete but normal visualized anatomy. Repeat in 4 weeks with MFM. No cramping or bleeding. RTC 4 weeks. Flowsheet Date 12/09/2023 Lewis Score Blood Edema Fundus Height Fundus Units Glucose Ketones Leukocytes Nitrite Labor Signs Protein Cervic Dilation Cervic Effacement Cervic Station neg none trace Type Weight in lbs Pre/Post Dialysis Refused 238.618473437111 BP Diastolic BP Location Tested BP Systolic BP Type 75 L arm 111 sitting Fetus Heart Rate Present A 150 Fetus Movement A Yes Comments Pateint c/o of lower back pa in and lower pelvic pain. Discussed tylenol, ice/hot packs, and belly band. Good movement. Had repeat anatomy with MFM, all normal; EFW 90%, growth US scheduled for 4 weeks with [facility]. Discussed GCT and labs for next visit. RTC 3-4 weeks. Flowsheet Date 01/06/2024 Lewis Score Blood Edema Fundus Height Fundus Units Glucose Ketones Leukocytes Nitrite Labor Signs Protein Cervic Dilation Cervic Effacement Cervic Station neg none none trace Type Weight in lbs Pre/Post Dialysis Refused 243.386396804747 BP Diastolic BP Location Tested BP Systolic BP Type 76 L arm 122 sitting Fetus Heart Rate Present Fetus Movement A Yes Comments Good movement. No cram ping or bleeding. Repeat growth with MF, EFW 75%. Continue serial growth US per [facility]. GCT and labs today. Discussed tdap vaccine. Desires EIL on 03/15 as partner is going to basic training for the [employer]. Discussed SP loss prevention investigator, patient will make appointmetns with her to meet and discuss EIL. RTC 2 weeks. Flowsheet Date 01/20/2024 Lewis Score Blood Edema Fundus Height Fundus Units Glucose Ketones Leukocytes Nitrite Labor Signs Protein Cervic Dilation Cervic Effacement Cervic Station neg none none trace Type Weight in lbs Pre/Post Dialysis Refused Weight 246.031100397851 BP Diastolic BP Location Tested BP Systolic [...] Weight in lbs Pre/Post Dialysis Refused Weight 246.406057093188 BP Diastolic BP Location Tested BP Systolic [...] Weight in lbs Pre/Post Dialysis Refused Weight 249.428785902422 BP Diastolic BP Location Tested BP Systolic [...] Weight in lbs Pre/Post Dialysis Refused Weight 247.952088999238 BP Diastolic BP Location Tested BP Systolic BP Type 77 122 Fetus Heart Rate Present Fetus Movement Comments Flowsheet Date 02/17/2024 Lewis Score Blood Edema Fundus Height Fundus Units Glucose Ketones Leukocytes Nitrite Labor Signs Protein Cervic Dilation Cervic Effacement Cervic Station none Type Weight in lbs Pre/Post Dialysis Refused Weight 247.115651898242 BP Diastolic BP Location Tested BP Systolic [...] Weight in lbs Pre/Post Dialysis Refused Weight 248.685053335642 BP Diastolic BP Location Tested BP Systolic [...] Type Weight in lbs Pre/Post Dialysis Refused 249.575614082681 BP Diastolic BP Location Tested BP Systolic [...] Weight in lbs Pre/Post Dialysis Refused Weight 248.569564398189 BP Diastolic BP Location Tested BP Systolic BP Type 74 L arm 118 sitting Fetus Heart Rate Present A 140 Fetus Movement A Yes Comments Good movement. No ctx, LOF, VB. Will move induction from 03/15 to 03/16 due to staffing issues at [place]. BPP 10/28 at MFM Thursday, NST reactive today. Labor precautions reviewed. Menstrual History Last Menstrual Date Menses Monthly On Bcp Conception Prior Menses Frequency Hcg Plus Date Menarche Onset Age 0306/03/2023 Genetic Screening And Infection History Question Response Note Mental Retardation/Autism false Patient's Age Will Be 35 Years Or Older At Estim ated Date of Delivery false Thalassemia (Mongolian, Sami, Mediterranean, Or Background): MCV < 80 false Neural Tube Defect (Meningomyelocele, Spina Bifi da, Or Anencephaly) false Congenital Heart Defect false Down Syndrome false Ben-Sachs (eg, Confucianism, Cajun, Thai-Marquette) f alse Juve Disease false Sickle Cell Disease Or Trait () false Hemophilia Or Other Blood Disorders false Muscular Dystrophy false Cystic Fibrosis false Haywood's Chorea false Intellectual Disability/Autism false If Yes, [...]
--- OUTSIDE RECORDS SUMMARY | 2024-03-25 06:49 | XMS_ITS | Continuity of Care Document ---
Author Organization [facility] Address [address] [place] [address] Assessment Encounter Date Assessment Date Assessment LastModified by Organization Details LastModified Time 03/09/2024 03/09/2024 Patient is ___weeks . Discussed plan. Not available 03/09/2024 11:20:49 Plan of Treatment [...] observ ation record ed. RENOEARNEST [address], [place], [address], 09/10/2023 10:53:56 09/08/19 24 09/08/2023 US, obste tric, nucha l trans lucen cy No observ ation record ed. [email or web address] [facility] [address], [place], [address], 09/08/2023 13:17:08 09/14/19 24 09/14/2023 US, obste tric, follo w-up No observ ation record ed. [email or web address] [facility] [address], [place], [address], 09/16/2023 14:33:23 09/14/19 24 09/14/2023 US, obste tric, trans abdom inal No observ ation record ed. [email or web address] [facility] [address], [place], [address], 09/15/2023 15:09:15 10/12/19 24 10/12/2023 US, obste tric No observ ation record ed. [email or web address] [facility] [address], [place], [address], 10/13/2023 16:44:42 11/09/19 24 11/09/2023 US, obste tric, follo w-up No observ ation record ed. [email or web address] [facility] [address], [place], [address], 11/10/2023 16:45:37 12/07/19 24 12/07/2023 imagi ng/di agnos tic resul t No observ ation record ed. [facility] [address], [place], [address], 12/11/2023 10:32:37 01/04/20 24 01/04/2024 imagi ng/di agnos tic resul t No observ ation record ed. [facility] [address], [place], [address], 01/07/2024 12:12:29 02/02/20 24 02/01/2024 US, obste tric, follo w-up No observ ation record ed. [email or web address] [facility] [address], [place], [address], 02/04/2024 10:30:16 02/10/20 24 02/10/2024 non-s tress test No observ ation record ed. [email or web address] [facility] [address], [place], [address], 02/10/2024 11:58:14 02/10/20 24 02/10/2024 US, obste tric, bioph ysica l profi le + non-s tress test No observ ation record ed. [email or web address] [facility] [address], [place], [address], 02/10/2024 12:45:48 02/10/20 24 02/10/2024 US, obste tric, bioph ysica l profi le + non-s tress test No observ ation record ed. [email or web address] [address], [place], [address], 02/10/2024 22:00:22 02/17/20 24 02/17/2024 US, obste tric, bioph ysica l profi le + non-s tress test No observ ation record ed. [email or web address] [facility] [address], [place], [address], 02/17/2024 13:14:35 02/17/20 24 02/17/2024 US, obste tric, bioph ysica l profi le + non-s tress test No observ ation record ed. [email or web address] [address], [place], [address], 02/19/2024 01:03:22 02/17/20 24 02/17/2024 non-s tress test No observ ation record ed. [facility] [address], [place], [address], 02/17/2024 18:46:39 02/17/20 non-s tress test No observ ation record ed. [email or web address] [facility] [address], [place], [address], 02/17/2024 18:48:46 02/24/20 24 02/24/2024 US, obste tric, bioph ysica l profi le + non-s tress test No observ ation record ed. [facility] [address], [place], [address], 02/24/2024 14:24:08 02/24/20 24 02/24/2024 US, obste tric, follo w-up No observ ation record ed. [facility] [address], [place], [address], 02/24/2024 14:24:20 02/24/20 24 02/24/2024 US, obste tric, bioph ysica l profi le + non-s tress test No observ ation record ed. [email or web address] [address], [place], [address], 02/25/2024 11:50:17 02/24/20 24 02/24/2024 non-s tress test No observ ation record ed. [email or web address] [facility] [address], [place], [address], 02/24/2024 12:00:12 03/01/20 24 02/29/2024 imagi ng/di agnos tic resul t No observ ation record ed. [facility] [address] [place] [address], [address], 03/01/2024 17:20:31 03/03/20 24 03/03/2024 US, obste tric, bioph ysica l profi le + non-s tress test No observ ation record ed. [email or web address] [facility] [address], [place], [address], 03/03/2024 12:20:34 03/03/20 24 03/03/2024 US, obste tric, bioph ysica l profi le + non-s tress test No observ ation record ed. [email or web address] [address], [place], [address], 03/03/2024 20:54:47 03/03/20 24 03/03/2024 non-s tress test No observ ation record ed. [email or web address] [facility] [address], [place], [address], 03/03/2024 14:58:50 03/08/20 24 03/07/2024 imagi ng/di agnos tic resul t No observ ation record ed. [facility] [address], [address], 03/09/2024 00:46:18 03/09/20 24 03/09/2024 non-s tress test No observ ation record ed. [email or web address] [facility] [address], [place], [address], 03/09/2024 11:26:46 03/14/20 24 03/14/2024 imagi ng/di agnos tic resul t No observ ation record ed. [facility] [address], [address], 03/14/2024 13:30:26 03/17/20 24 03/14/2024 US, obste tric, follo w-up No observ ation record ed. [email or web address] [facility] [address], [address], 03/20/2024 15:27:00 Result Notes None recorded. Problems Name Problem SNOMED Code Status Onset Date Resolution Date Notes Provider Name and Address Organization Details Recorded Time 39166892 Active 2023 Jennierobin Hugginssharri shah, [facility] 4 12:13:08 Monosomy X 969318521 Active HR on NIPT, declined [facility]amnio centesis HEIDI COLON MD [address], [place], [address], [facility] 4 12:18:50 Monosomy X 285358586 Active HR on NIPT, declined [facility]/amnio centesis HEIDI COLON MD [address], [place], [address], [facility] 4 12:18:50 Body mass index 40+ - severely obese 100793691 Active weekly testing @34wks Jillian shah, [facility] 4 15:45:52 Problem Notes None [...] 4 162.56 cm 99.24 % 42.6 kg/m2 944773. 91 g 118 mm[Hg] 74 mm[Hg] Maude Peterson [facility] 11:21:38 Social History Question Answer Notes LastModified by Organizat ion Details LastModified Time Tobacco Smoking Status Never Smoker Susana shah, [facility] 2023 15:08:14 What Is Your Level [...] Or The Highest Degree You Have Received? [id number] Information not available 2023 Are There Any [...] Anxious, Or Unable To Sleep At Night)? [id number] Information not available 2023 Do You Use [...] you able to care for yourself? Yes [email or web address] Information not available 01/06/2024 Do you have difficulty dressing or bathing? No [email or web address] Information not available 01/06/2024 What is your [...] Diagnosis/Indication Diagnosis SNOMED-CT Code Diagnosis ICD10 Code [id number] Carlene Macias CNM [facility] [address],[place] [address] 02/10/2024 11:07:14 02/10/2024 12:40:48 Gestation period, 34 weeks 24058779 Z3A.34 Monosomy X 844402066 Q96 .9 [id number] Corin Christina [facility] [address],[place] [address] 02/10/2024 11:06:55 02/10/2024 12:05:49 Maternal obesity complicating , childbirth and the puerperium, antepartum 0000240079 07 O99.215 138508 [facility] [address],[place] [address] 02/10/2024 11:17:13 02/10/2024 12:10:38 Maternal obesity complicating , childbirth and the puerperium, antepartum 6116633183 07 O99.213 Z3A.34 [id number] [facility] [address],[place] [address] 02/17/2024 10:40:25 02/17/2024 11:08:31 Maternal obesity complicating , childbirth and the puerperium, antepartum 7111581669 07 O99.213 Z3A.35 [id number] Tammie Haddad [facility] [address],[place] [address] 02/17/2024 10:40:37 02/20/2024 03:50:45 Maternal obesity complicating , childbirth and the puerperium, antepartum 4615513387 07 O99.213 [id number] [facility] [address],[place] [address] 02/17/2024 10:41:04 02/17/2024 12:08:39 Gestation period, 35 weeks 91398652 Z3A.35 Anemia 333118267 D64.9 060008 Anamaria Ibanez [facility] [address],[place] [address] 02/24/2024 10:19:19 02/24/2024 11:26:08 Abnormal hematologic finding on screening of mother 525551517 O28.0 O99.210 O36.60X0 Z3A.36 534005 Maude Calvin [facility] [address],[place] [address] 02/24/2024 10:19:35 02/24/2024 12:16:41 Maternal obesity complicating , childbirth and the puerperium, antepartum 2841170426 07 O99.212 604861 HEIDI COLON MD [facility] [address],[place] [address] 02/24/2024 10:19:50 02/24/2024 12:29:46 Nausea and vomiting 72203447 R11.2 Monosomy X 364522218 Q96 .9 Maternal o besity complicating , childbirth and the puerperium, antepartum 4612490473 07 O99.212 Gestation period, 36 weeks 37576944 Z3A.36 [id number] Tyra Miller [facility] [address],[place] [address] 03/03/2024 10:29:16 03/03/2024 10:58:26 Maternal obesity complicating , childbirth and the puerperium, antepartum 2779703697 07 O99.213 Z3A.37 139525 Maude Peterson [facility] [address],[place] [address] 03/03/2024 10:29:50 03/03/2024 15:01:11 Maternal obesity complicating , childbirth and the puerperium, antepartum 4725499480 07 O99.212 [id number] HEIDI COLON MD [facility] [address],[place] [address] 03/04/2024 14:12:07 03/04/2024 14:52:49 Monosomy X 845131854 Q96.9 Maternal o besity complicating , childbirth and the puerperium, antepartum 0455546383 07 O99.212 Gestation period, 37 weeks 56590072 Z3A.37 404761 Maude Peterson [facility] [address],[place] [address] 03/09/2024 10:17:13 03/09/2024 11:28:51 Maternal obesity complicating , childbirth and the puerperium, antepartum 3421854316 07 O99.212 [id number] HEIDI COLON MD [facility] [address] [address] 03/09/2024 10:17:23 03/09/2024 11:59:43 Monosomy X 505235252 Q96.9 Maternal o besity complicating , childbirth and the puerperium, antepartum 9985129460 07 O99.212 Gestation period, 38 weeks 53974721 Z3A.38 Health Concerns Section Related Observation LastModified by Organization Detai ls LastModified Time None Recorded Concern Status LastModified by Organization Details LastModified Time None Recorded Payers Encounter Date Sequence Insurance Name Policy Number Policy Kraus Covered Member ID Kraus Member ID Guarantor Name 03/09/2024 1 [facility] (MEDICAID HMO) [id number] Loulou Chang [id number] Dudley Natarajan OBGyn Episode Ob Episode Information Episode Created Date Number of Fetuses Patient Bloodtype Patient rh Status Prepregnancy Weight lbs Domestic Partner Domestic Partner Phone Father Name Creative Consultant Status 09/08/19 24 1 O Positive 244.2 OPEN Fetus Data First Name Last Name Admitted to NICU Weight (g) Sex Living Outcome Pediatric Complications Fetus ID Race Codes Race Delivery Type [id number] Problems Problem Notes MFM: 09/13 with genetic couns elor & [employer] ultrasound, declined [facility]S10/11 @945 US & 11/08 945 US [facility] Problem Name Start Date End Date Resolution Snomed Code Not e Body mass index 40+ - severely obese 801114051 weekly testin g @34wks Monosomy X 425923836 HR on NIP T, declined [facility]S/amniocentesis Angus [...] Date Ultra Sound Latest Days Gestation 0 [email or web address] 09/08/2023 03/22/20 24 0 Pre-jerri Flowsheet Flowsheet [...] Weight in lbs Pre/Post Dialysis Refused Weight 237.996203012409 BP Diastolic BP Location Tested BP Systolic BP Type 66 100 Fetus Heart Rate Present A 165 Fetus Movement Comments Patient presents to [facility] care. Nausea improved, no bleeding or cramping. complicated by high risk NIPT for monosomy X. Referral sent to [facility]. Discussed amniocentesis for diagnostic testing. Discussed risks of monosomy X. NT/NB wnl today. Other OB labs wnl. RTC 4 weeks, will follow up [facility] referral. Flowsheet Date 10/07/2023 Lewis Score Blood Edema Fundus Height Fundus Units Glucose Ketones Leukocytes Nitrite Labor Signs Protein Cervic Dilation Cervic Effacement Cervic Station Type Weight in lbs Pre/Post Dialysis Refused Weight 236.007139880618 BP Diastolic BP Location Tested BP Systolic BP Type 72 116 Fetus Heart Rate Present A 160 Fetus Movement A No Comments Doing well, no movemen t yet. No cramping, bleeding or nausea. Saw [facility] for HR Monosomy X on NIPT, declined CVS/amnio. Has follow up visit with them on Thursday. Discussed anatomy US with [facility], otherwise normal care in 4 weeks. Flowsheet Date 11/10/2023 Lewis Score Blood Edema Fundus Height Fundus Units Glucose Ketones Leukocytes Nitrite Labor Signs Protein Cervic Dilation Cervic Effacement Cervic Station Type Weight in lbs Pre/Post Dialysis Refused Weight 237.710764437300 BP Diastolic BP Location Tested BP Systolic [...] Type Weight in lbs Pre/Post Dialysis Refused 238.532186058888 BP Diastolic BP Location Tested BP Systolic [...] Type Weight in lbs Pre/Post Dialysis Refused 243.981578793223 BP Diastolic BP Location Tested BP Systolic BP Type 76 L arm 122 sitting Fetus Heart Rate Present Fetus Movement A Yes Comments Good movement. No cram ping or bleeding. Repeat growth with MFM, EFW 75%. Continue serial growth US per [facility]. GCT and labs today. Discussed tdap vaccine. Desires EIL on 03/15 as partner is going to basic training for the [employer]. Discussed SP occupational therapist rehab manager, patient will make appointmetns with her to meet and discuss EIL. RTC 2 weeks. Flowsheet Date 01/20/2024 Lewis Score Blood Edema Fundus Height Fundus Units Glucose Ketones Leukocytes Nitrite Labor Signs Protein Cervic Dilation Cervic Effacement Cervic Station neg none none trace Type Weight in lbs Pre/Post Dialysis Refused Weight 246.654298355775 BP Diastolic BP Location Tested BP Systolic [...] Weight in lbs Pre/Post Dialysis Refused Weight 246.943420059226 BP Diastolic BP Location Tested BP Systolic BP Type 66 L arm 118 sitting Fetus Heart Rate Present Fetus Movement A Yes Comments Patient c/o of some nausea a nd [place]. No bleeding. Good movement. Had MFM [...] Weight in lbs Pre/Post Dialysis Refused Weight 249.907081021805 BP Diastolic BP Location Tested BP Systolic [...] Weight in lbs Pre/Post Dialysis Refused Weight 247.632084552243 BP Diastolic BP Location Tested BP Systolic BP Type 77 122 Fetus Heart Rate Present Fetus Movement Comments Flowsheet Date 02/17/2024 Lewis Score Blood Edema Fundus Height Fundus Units Glucose Ketones Leukocytes Nitrite Labor Signs Protein Cervic Dilation Cervic Effacement Cervic Station none Type Weight in lbs Pre/Post Dialysis Refused Weight 247.115388236753 BP Diastolic BP Location Tested BP Systolic [...] Weight in lbs Pre/Post Dialysis Refused Weight 248.581149755209 BP Diastolic BP Location Tested BP Systolic [...] Type Weight in lbs Pre/Post Dialysis Refused 249.545368008456 BP Diastolic BP Location Tested BP Systolic [...] Weight in lbs Pre/Post Dialysis Refused Weight 248.135076833665 BP Diastolic BP Location Tested BP Systolic BP Type 74 L arm 118 sitting Fetus Heart Rate Present A 140 Fetus Movement A Yes Comments Good movement. No ctx, LOF, VB. Will move induction from 03/15 to 03/16 due to staffing issues at [place]. BPP 8/8 at M Thursday, NST reactive today. Labor precautions reviewed. Menstrual History Last Menstrual Date Menses Monthly On Bcp Conception Prior Menses Frequency Hcg Plus Date Menarche Onset Age 0306/03/2023 Genetic Screening And Infection History Question Response Note Mental Retardation/Autism false Patient's Age Will Be 35 Years Or Older At Estim ated Date of Delivery false Thalassemia (Botswanan, Kazakh, Mediterranean, Or Background): MCV < 80 false Neural Tube Defect (Meningomyelocele, Spina Bifi da, Or Anencephaly) false Congenital Heart Defect false Down Syndrome false Ben-Sachs (eg, Methodist, Cajun, Slovak[place]) f alse Juve Disease false Sickle Cell Disease Or Trait () false Hemophilia Or Other Blood Disorders false Muscular Dystrophy false Cystic Fibrosis false [place]'s Chorea false Intellectual Disability/Autism false If Yes, [...]
--- OUTSIDE RECORDS SUMMARY | 2024-03-25 06:49 | XMS_ITS | Continuity of Care Document ---
Author Organization [facility] [place] Address [address] [place] [address] Assessment No assessment recorded. Plan of Treatment Reminders Order Date Submit Date Provider Last Modified By Organization Details Last Modified Time Details Appointments SURG POST OP 025 10:45AM HEIDI COLON MD Not available Not available Not available Lab None record ed. Referral None record ed. Procedures None record ed. Surgeries None record ed. Imaging non-st ress test 024 02/24/20 24 [email or web address] [place], [address], [place], [address], 02/28/2024 14:21:02 Medication Orders None record ed. Patient TargetsNo targets recorded. Patient InstructionsNo instructions recorded. Reason for Referral None Reported. Results Created Date Observation Date Name Description Value Unit Range Abnormal Flag Note LastModifiedBy Organization Detail LastModifiedTime 09/08/19 24 09/08/2023 US, obste tric, nucha l trans lucen cy No observ ation record ed. R[place] [address], [place], [address], 09/10/2023 10:53:56 09/08/19 24 09/08/2023 US, obste tric, nucha l trans lucen cy No observ ation record ed. [email or web address] [place] [address], [place], [address], 09/08/2023 13:17:08 09/14/19 24 09/14/2023 US, obste tric, follo w-up No observ ation record ed. [email or web address] [facility] [address] [facility], [place], [address], 09/16/2023 14:33:23 09/14/19 24 09/14/2023 US, obste tric, trans abdom inal No observ ation record ed. [place] [address] [facility] [address], [place], [address], 09/15/2023 15:09:15 10/12/19 24 10/12/2023 US, obste tric No observ ation record ed. [address] [facility] [address], [place], [address], 10/13/2023 16:44:42 11/09/19 24 11/09/2023 US, obste tric, follo w-up No observ ation record ed. [email or web address] [facility] [address], [place], [address], 11/10/2023 16:45:37 12/07/19 24 12/07/2023 imagi ng/di agnos tic resul t No observ ation record ed. [facility] [address], [place], [address], 12/11/2023 10:32:37 01/04/20 24 01/04/2024 imagi ng/di agnos tic resul t No observ ation record ed. [facility] [address], [place], [address], 01/07/2024 12:12:29 02/02/20 24 02/01/2024 US, obste tric, follo w-up No observ ation record ed. [email or web address] [facility] [address] [facility], [place], [address], 02/04/2024 10:30:16 02/10/20 24 02/10/2024 non-s tress test No observ ation record ed. [email or web address] [place] [address], [place], [address], 02/10/2024 11:58:14 02/10/20 24 02/10/2024 US, obste tric, bioph ysica l profi le + non-s tress test No observ ation record ed. [email or web address] [place] [address], [place], [address], 02/10/2024 12:45:48 02/10/20 24 02/10/2024 US, obste tric, bioph ysica l profi le + non-s tress test No observ ation record ed. [email or web address] [address], [place], [address], 02/10/2024 22:00:22 02/17/20 24 02/17/2024 US, obste tric, bioph ysica l profi le + non-s tress test No observ ation record ed. [email or web address] [place] [address], [place], [address], 02/17/2024 13:14:35 02/17/20 24 02/17/2024 US, obste tric, bioph ysica l profi le + non-s tress test No observ ation record ed. [email or web address] [address], [place], [address], 02/19/2024 01:03:22 02/17/20 24 02/17/2024 non-s tress test No observ ation record ed. [email or web address] [place] [address], [place], [address], 02/17/2024 18:46:39 02/17/20 non-s tress test No observ ation record ed. [email or web address] [place] [address], [place], [address], 02/17/2024 18:48:46 02/24/20 24 02/24/2024 US, obste tric, bioph ysica l profi le + non-s tress test No observ ation record ed. [facility] [address], [place], [address], 02/24/2024 14:24:08 02/24/20 24 02/24/2024 US, obste tric, follo w-up No observ ation record ed. [facility] [address], [place], [address], 02/24/2024 14:24:20 02/24/20 24 02/24/2024 US, obste tric, bioph ysica l profi le + non-s tress test No observ ation record ed. [email or web address] [address] [facility], [place], [address], 02/25/2024 11:50:17 02/24/20 24 02/24/2024 non-s tress test No observ ation record ed. [email or web address] [place] [address], [place], [address], 02/24/2024 12:00:12 03/01/20 24 02/29/2024 imagi ng/di agnos tic resul t No observ ation record ed. [facility] [address] [place] [address], [address], 03/01/2024 17:20:31 03/03/20 24 03/03/2024 US, obste tric, bioph ysica l profi le + non-s tress test No observ ation record ed. [email or web address] [place] [address], [place], [address], 03/03/2024 12:20:34 03/03/20 24 03/03/2024 US, obste tric, bioph ysica l profi le + non-s tress test No observ ation record ed. [email or web address] [address], [place], [address], 03/03/2024 20:54:47 03/03/20 24 03/03/2024 non-s tress test No observ ation record ed. [email or web address] [place] [address], [place], [address], 03/03/2024 14:58:50 03/08/20 24 03/07/2024 imagi ng/di agnos tic resul t No observ ation record ed. [facility] [address], [address], 03/09/2024 00:46:18 03/09/20 24 03/09/2024 non-s tress test No observ ation record ed. [place] [address], [place], [address], 03/09/2024 11:26:46 03/14/20 24 03/14/2024 imagi ng/di agnos tic resul t No observ ation record ed. [facility] [address], [address], 03/14/2024 13:30:26 03/17/20 24 03/14/2024 US, obste tric, follo w-up No observ ation record ed. [email or web address] [facility] [address] [place] [address], [address], 03/20/2024 15:27:00 Result Notes None recorded. Problems Name Problem SNOMED Code Status Onset Date Resolution Date Notes Provider Name and Address Organization Details Recorded Time 55979542 Active 2023 Jennie Grossman [facility] 4 12:13:08 Monosomy X 597697604 Active HR on NIPT, declined CVS/amnio centesis HEIDI COLON MD [address], [place], [address], [facility] 4 12:18:50 Monosomy X 012283661 Active HR on NIPT, declined CVS/amnio centesis HEIDI COLON MD [address], [place], [address], [facility] 4 12:18:50 Body mass index 40+ - severely obese 307623893 Active weekly testing @34wks Jillian Morin [facility] 4 15:45:52 Problem Notes None recorded. Procedures Surgical History None recorded. Imaging Results Imaging Date Name Status LastModified by Organiz ation Details LastModified Time 02/24/2024 non-stress test completed [email or web address] [place] [address], [place], [address], 02/24/2024 12:00:12 Procedure Notes None recorded. Medical [...] 4 162.56 cm 99.26 % 42.6 kg/m2 107409. 91 g 116 mm[Hg] 71 mm[Hg] Maude Peterson [facility] 11:58:46 Social History Question Answer Notes LastModified by Organizat ion Details LastModified Time Tobacco Smoking Status Never Smoker Susana Dove alyssa, [facility] 2023 15:08:14 What Is Your Level [...] Or The Highest Degree You Have Received? [id number] Information not available 2023 Are There Any [...] Anxious, Or Unable To Sleep At Night)? [id number] Information not available 2023 Do You Use Any Illicit Or Recreational Drugs? No Information not available 2023 Do You Use Sunscreen Routinely? No Information not available 2023 Have You Used IV Drugs? No Information not available 2023 Sex: Unknown Functional Status Question Answer Note LastModified by Organizat ion Details LastModified Time Do you have difficulty walking or climbing stairs? No [email or web address] Information not available 01/06/2024 Are you able to walk? YESWOREST Information not available 2023 Are you able to care for yourself? Yes [email or web address] Information not available 01/06/2024 Do you have difficulty dressing or bathing? No [email or web address] Information not available 01/06/2024 What is your exercise level? Moderate Information not available 2023 Mental Status None recorded. Family History Relationship Description Onset Age of this Age Resolved Age Notes LastModified by Organization Details LastModified Time Mother Essential hypertension [email or web address] Not available 11:50:07 Medical History Condition Response Allergies (Food, seasonal, environmental ) Y Other N Blood Transfusion N Breast Cancer N Drug/Latex Allergies/Reactions N Dermatologic Disorders N Lung Disease N [...] Diagnosis/Indication Diagnosis SNOMED-CT Code Diagnosis ICD10 Code 266070 HEIDI COLON MD [place] [address],[place] [address] 02/03/2024 10:35:23 02/03/2024 11:50:26 Nausea and vomiting 29420663 R11.2 Gestation period, 33 weeks 73983679 Z3A.33 Monosomy X 862696371 Q96 .9 [id number] Carlene Macias CNM [place] [address],[place] [address] 02/10/2024 11:07:14 02/10/2024 12:40:48 Gestation period, 34 weeks 34052910 Z3A.34 Monosomy X 256662079 Q96 .9 [id number] Corin Vasquez [place] [address],[place] [address] 02/10/2024 11:06:55 02/10/2024 12:05:49 Maternal obesity complicating , childbirth and the puerperium, antepartum 1756840381 07 O99.215 [id number] [facility] [address],[place] [address] 02/10/2024 11:17:13 02/10/2024 12:10:38 Maternal obesity complicating , childbirth and the puerperium, antepartum 3988254325 07 O99.213 Z3A.34 [id number] [facility] [address],[place] [address] 02/17/2024 10:40:25 02/17/2024 11:08:31 Maternal obesity complicating , childbirth and the puerperium, antepartum 0789749042 07 O99.213 Z3A.35 [id number] Tammie Haddad [place] [address],[place] [address] 02/17/2024 10:40:37 02/20/2024 03:50:45 Maternal obesity complicating , childbirth and the puerperium, antepartum 9184302871 07 O99.213 [id number] Carlene Macias CNM [place] [address],[place] [address] 02/17/2024 10:41:04 02/17/2024 12:08:39 Gestation period, 35 weeks 96521874 Z3A.35 Anemia 489232948 D64.9 [id number] Anamaria Carydyan [place] [address],[place] [address] 02/24/2024 10:19:19 02/24/2024 11:26:08 Abnormal hematologic finding on screening of mother 964865000 O28.0 O99.210 O36.60X0 Z3A.36 [id number] Maudenelly Peterson [place] [address],[place] [address] 02/24/2024 10:19:35 02/24/2024 12:16:41 Maternal obesity complicating , childbirth and the puerperium, antepartum 0413828857 07 O99.212 [id number] HEIDI COLON MD [place] [address],[place] [address] 02/24/2024 10:19:50 02/24/2024 12:29:46 Nausea and vomiting 39417849 R11.2 Monosomy X 881563174 Q96 .9 Maternal o besity complicating , childbirth and the puerperium, antepartum 3757973621 07 O99.212 Gestation period, 36 weeks 87337709 Z3A.36 Health Concerns Section Related Observation LastModified by Organization Detai ls LastModified Time None Recorded Concern Status LastModified by Organization Details LastModified Time None Recorded Payers Encounter Date Sequence Insurance Name Policy Number Policy Kraus Covered Member ID Kraus Member ID Guarantor Name 02/24/2024 1 [facility] (MEDICAID HMO) [id number] Loulou Chang [id number] Dudley Natarajan OBGyn Episode Ob Episode Information Episode Created Date Number of Fetuses Patient Bloodtype Patient rh Status Prepregnancy Weight lbs Domestic Partner Domestic Partner Phone Father Name Risk Prevention Engineer Status 09/08/19 24 1 O Positive 244.2 OPEN Fetus Data First Name Last Name Admitted to NICU Weight (g) Sex Living Outcome Pediatric Complications Fetus ID Race Codes Race Delivery Type [id number] Problems Problem Notes [facility]: 09/13 with genetic couns elor & MEDICAL FRONT DESK COORDINATOR ultrasound, declined CVS10/11 @945 US & 11/08 945 US [facility] Problem Name Start Date End Date Resolution Snomed Code Not e Body mass index 40+ - severely obese 771616612 weekly testin g @34wks Monosomy X 851953581 HR on NIP T, declined CVS/amniocentesis Angus [...] Date Ultra Sound Latest Days Gestation 0 [email or web address] 09/08/2023 03/22/20 24 0 Pre-jerri Flowsheet Flowsheet [...] Weight in lbs Pre/Post Dialysis Refused Weight 237.027116049376 BP Diastolic BP Location Tested BP Systolic BP Type 66 100 Fetus Heart Rate Present A 165 Fetus Movement Comments Patient presents to [facility] care. Nausea improved, no bleeding or cramping. complicated by high risk NIPT for monosomy X. Referral sent to [facility]. Discussed amniocentesis for diagnostic testing. Discussed risks of monosomy X. NT/NB wnl today. Other OB labs wnl. RTC 4 weeks, will follow up MFM referral. Flowsheet Date 10/07/2023 Lewis Score Blood Edema Fundus Height Fundus Units Glucose Ketones Leukocytes Nitrite Labor Signs Protein Cervic Dilation Cervic Effacement Cervic Station Type Weight in lbs Pre/Post Dialysis Refused Weight 236.945043230953 BP Diastolic BP Location Tested BP Systolic BP Type 72 116 Fetus Heart Rate Present A 160 Fetus Movement A No Comments Doing well, no movemen t yet. No cramping, bleeding or nausea. Saw MFM for HR Monosomy X on NIPT, declined CVS/amnio. Has follow up visit with them on Thursday. Discussed anatomy US with [facility], otherwise normal care in 4 weeks. Flowsheet Date 11/10/2023 Lewis Score Blood Edema Fundus Height Fundus Units Glucose Ketones Leukocytes Nitrite Labor Signs Protein Cervic Dilation Cervic Effacement Cervic Station Type Weight in lbs Pre/Post Dialysis Refused Weight 237.657748624012 BP Diastolic BP Location Tested BP Systolic BP Type 61 108 Fetus Heart Rate Present A 145 Fetus Movement A Yes Comments Baby moving well. Had anatom y US with [facility] yesterday, incomplete but normal visualized anatomy. Repeat in 4 weeks with M. No cramping or bleeding. RTC 4 weeks. Flowsheet Date 12/09/2023 Lewis Score Blood Edema Fundus Height Fundus Units Glucose Ketones Leukocytes Nitrite Labor Signs Protein Cervic Dilation Cervic Effacement Cervic Station neg none trace Type Weight in lbs Pre/Post Dialysis Refused 238.834805932285 BP Diastolic BP Location Tested BP Systolic BP Type 75 L arm 111 sitting Fetus Heart Rate Present A 150 Fetus Movement A Yes Comments Pateint c/o of lower back pa in and lower pelvic pain. Discussed tylenol, ice/hot packs, and belly band. Good movement. Had repeat anatomy with MFM, all normal; EFW 90%, growth US scheduled for 4 weeks with [facility]. Discussed GCT and labs for next visit. RTC 3-4 weeks. Flowsheet Date 01/06/2024 Lewis Score Blood Edema Fundus Height Fundus Units Glucose Ketones Leukocytes Nitrite Labor Signs Protein Cervic Dilation Cervic Effacement Cervic Station neg none none trace Type Weight in lbs Pre/Post Dialysis Refused 243.643848447684 BP Diastolic BP Location Tested BP Systolic BP Type 76 L arm 122 sitting Fetus Heart Rate Present Fetus Movement A Yes Comments Good movement. No cram ping or bleeding. Repeat growth with MFM, EFW 75%. Continue serial growth US per MFM. GCT and labs today. Discussed tdap vaccine. Desires EIL on 03/15 as partner is going to basic training for the [employer] Discussed SP applications support engineer, patient will make appointmetns with her to meet and discuss EIL. RTC 2 weeks. Flowsheet Date 01/20/2024 Lewis Score Blood Edema Fundus Height Fundus Units Glucose Ketones Leukocytes Nitrite Labor Signs Protein Cervic Dilation Cervic Effacement Cervic Station neg none none trace Type Weight in lbs Pre/Post Dialysis Refused Weight 246.638429006297 BP Diastolic BP Location Tested BP Systolic [...] weeks. RTC 2 weeks Flowsheet Date 02/03/2024 Elwis Score Blood Edema Fundus Height Fundus Units Glucose Ketones Leukocytes Nitrite Labor Signs Protein Cervic Dilation Cervic Effacement Cervic Station neg none none trace Type Weight in lbs Pre/Post Dialysis Refused Weight 246.731704795489 BP Diastolic BP Location Tested BP Systolic [...] Weight in lbs Pre/Post Dialysis Refused Weight 249.015704058372 BP Diastolic BP Location Tested BP Systolic [...] Weight in lbs Pre/Post Dialysis Refused Weight 247.258378871840 BP Diastolic BP Location Tested BP Systolic BP Type 77 122 Fetus Heart Rate Present Fetus Movement Comments Flowsheet Date 02/17/2024 Lewis Score Blood Edema Fundus Height Fundus Units Glucose Ketones Leukocytes Nitrite Labor Signs Protein Cervic Dilation Cervic Effacement Cervic Station none Type Weight in lbs Pre/Post Dialysis Refused Weight 247.367883571475 BP Diastolic BP Location Tested BP Systolic [...] Weight in lbs Pre/Post Dialysis Refused Weight 248.512737376859 BP Diastolic BP Location Tested BP Systolic [...] Type Weight in lbs Pre/Post Dialysis Refused 249.850357715651 BP Diastolic BP Location Tested BP Systolic [...] Weight in lbs Pre/Post Dialysis Refused Weight 248.631237304719 BP Diastolic BP Location Tested BP Systolic BP Type 74 L arm 118 sitting Fetus Heart Rate Present A 140 Fetus Movement A Yes Comments Good movement. No ctx, LOF, VB. Will move induction from 03/15 to 03/16 due to staffing issues at [place]. BPP 10/28 at [facility] Thursday, NST reactive today. Labor precautions reviewed. Menstrual History Last Menstrual Date Menses Monthly On Bcp Conception Prior Menses Frequency Hcg Plus Date Menarche Onset Age 0306/03/2023 Genetic Screening And Infection History Question Response Note Mental Retardation/Autism false Patient's Age Will Be 35 Years Or Older At Estim ated Date of Delivery false Thalassemia (Citizen Of [place], [place], [place], Or Background): MCV < 80 false Neural Tube Defect (Meningomyelocele, Spina Bifi da, Or Anencephaly) false Congenital Heart Defect false Down Syndrome false Ben-Sachs (eg, Baptist, Caj[place], [place]) f alse Juve Disease false Sickle Cell Disease Or Trait () false Hemophilia Or Other Blood Disorders false Muscular Dystrophy false Cystic Fibrosis false Licking's Chorea false Intellectual Disability/Autism false If Yes, [...]
--- OUTSIDE RECORDS SUMMARY | 2024-03-25 06:50 | XMS_ITS | Continuity of Care Document ---
Author Organization [facility] Address [address] [place] [address] Assessment Encounter Date Assessment Date Assessment LastModified [...] record ed. RENOEARNEST Truj[address], [place], [address], 09/10/2023 10:53:56 09/08/19 24 09/08/2023 US, obste tric, nucha l trans lucen cy No observ ation record ed. [email or web address] [facility] [address], [place], [address], 09/08/2023 13:17:08 09/14/19 24 09/14/2023 US, obste tric, follo w-up No observ ation record ed. [email or web address] [facility] [address], [place], [address], 09/16/2023 14:33:23 09/14/19 24 09/14/2023 US, obste tric, trans abdom inal No observ ation record ed. [email or web address] [facility] [address], [place], [address], 09/15/2023 15:09:15 10/12/19 24 10/12/2023 US, obste tric No observ ation record ed. [facility] [address], [place], [address], 10/13/2023 16:44:42 11/09/19 24 11/09/2023 US, obste tric, follo w-up No observ ation record ed. [facility] [address], [place], [address], 11/10/2023 16:45:37 12/07/19 24 12/07/2023 imagi ng/di agnos tic resul t No observ ation record ed. [facility] [address], [place], [address], 12/11/2023 10:32:37 01/04/20 24 01/04/2024 imagi ng/di agnos tic resul t No observ ation record ed. [facility] [address], [place], [address], 01/07/2024 12:12:29 02/02/20 24 02/01/2024 US, obste tric, follo w-up No observ ation record ed. [email or web address] [facility] [address], [place], [address], 02/04/2024 10:30:16 02/10/20 24 02/10/2024 non-s tress test No observ ation record ed. [email or web address] [facility] [address], [place], [address], 02/10/2024 11:58:14 02/10/20 24 02/10/2024 US, obste tric, bioph ysica l profi le + non-s tress test No observ ation record ed. [email or web address] [facility] [address], [place], [address], 02/10/2024 12:45:48 02/10/20 24 02/10/2024 US, obste tric, bioph ysica l profi le + non-s tress test No observ ation record ed. [email or web address] [facility] [address], [place], [address], 02/10/2024 22:00:22 02/17/20 24 02/17/2024 US, obste tric, bioph ysica l profi le + non-s tress test No observ ation record ed. [email or web address] [facility] [address], [place], [address], 02/17/2024 13:14:35 02/17/20 24 02/17/2024 US, obste tric, bioph ysica l profi le + non-s tress test No observ ation record ed. [email or web address] [address] [address], [place], [address], 02/19/2024 01:03:22 02/17/20 24 02/17/2024 non-s tress test No observ ation record ed. [email or web address] [facility] [address], [place], [address], 02/17/2024 18:46:39 02/17/20 non-s tress test No observ ation record ed. [email or web address] [facility] [address], [place], [address], 02/17/2024 18:48:46 02/24/20 24 02/24/2024 US, obste tric, bioph ysica l profi le + non-s tress test No observ ation record ed. [facility] [address], [place], [address], 02/24/2024 14:24:08 02/24/20 24 02/24/2024 US, obste tric, follo w-up No observ ation record ed. [facility] [address], [place], [address], 02/24/2024 14:24:20 02/24/20 24 02/24/2024 US, obste tric, bioph ysica l profi le + non-s tress test No observ ation record ed. [email or web address] [facility] [address], [place], [address], 02/25/2024 11:50:17 02/24/20 24 02/24/2024 non-s tress test No observ ation record ed. [email or web address] [facility] [address], [place], [address], 02/24/2024 12:00:12 03/01/20 24 02/29/2024 imagi ng/di agnos tic resul t No observ ation record ed. [facility] [address] [place] [address], [address], 03/01/2024 17:20:31 03/03/20 24 03/03/2024 US, obste tric, bioph ysica l profi le + non-s tress test No observ ation record ed. [email or web address] [facility] [address], [place], [address], 03/03/2024 12:20:34 03/03/20 24 03/03/2024 US, obste tric, bioph ysica l profi le + non-s tress test No observ ation record ed. [email or web address] [facility] [address], [place], [address], 03/03/2024 20:54:47 03/03/20 24 03/03/2024 non-s tress test No observ ation record ed. [email or web address] [facility] [address], [place], [address], 03/03/2024 14:58:50 03/08/20 24 03/07/2024 imagi ng/di agnos tic resul t No observ ation record ed. [facility] [address], [address], 03/09/2024 00:46:18 03/09/20 24 03/09/2024 non-s tress test No observ ation record ed. [email or web address] [facility] [address], [place], [address], 03/09/2024 11:26:46 03/14/20 24 03/14/2024 imagi ng/di agnos tic resul t No observ ation record ed. [facility] [address], [address], 03/14/2024 13:30:26 03/17/20 24 03/14/2024 US, obste tric, follo w-up No observ ation record ed. [email or web address] [facility] [address], [address], 03/20/2024 15:27:00 Result Notes None recorded. Problems Name Problem SNOMED Code Status Onset Date Resolution Date Notes Provider Name and Address Organization Details Recorded Time 33093345 Active 2023 Jennierobin Hugginssharri shah, [facility] 4 12:13:08 Monosomy X 095265567 Active HR on NIPT, declined [facility] centesis HEIDI COLON MD [address], [place], [address], [facility] 4 12:18:50 Monosomy X 132879222 Active HR on NIPT, declined [facility] centesis HEIDI COLON MD [address], [place], [address], [facility] 4 12:18:50 Body mass index 40+ - severely obese 992924002 Active weekly testing @34wks Jillian shah, [facility] 4 15:45:52 Problem Notes None [...] 4 162.56 cm 99.28 % 42.7 kg/m2 682218. 5 g 121 mm[Hg] 76 mm[Hg] Tammie Haddad [facility] 12:19:44 Social History Question Answer Notes LastModified by Organizat ion Details LastModified Time Tobacco Smoking Status Never Smoker Susana shah, [facility] 2023 15:08:14 What Is Your [...] Or The Highest Degree You Have Received? [id number] Information not available 2023 Are There Any [...] Anxious, Or Unable To Sleep At Night)? [id number] Information not available 2023 Do You Use Any Illicit Or Recreational Drugs? No Information not available 2023 Do You Use Sunscreen Routinely? No Information not available 2023 Have You Used IV Drugs? No Information not available 2023 Sex: Unknown Functional Status Question Answer Note LastModified by Organizat ion Details LastModified Time Do you have difficulty walking or climbing stairs? No [email or web address] Information not available 01/06/2024 Are you able to walk? YESWOREST [email or web address] Information not available 2023 Are you able to care for yourself? Yes [email or web address] Information not available 01/06/2024 Do you have difficulty dressing or bathing? No [email or web address] Information not available 01/06/2024 What is your [...] Diagnosis/Indication Diagnosis SNOMED-CT Code Diagnosis ICD10 Code [id number] HEIDI COLON MD [facility] [address],[place] [address] 01/20/2024 11:06:31 01/20/2024 12:07:38 Anemia of 39808918 O99.019 Maternal o besity complicating , childbirth and the puerperium, antepartum 8203790587 07 O99.212 Gestation period, 31 weeks 50856002 Z3A.31 [id number] HEIDI COLON MD [facility] [address],[place] [address] 02/03/2024 10:35:23 02/03/2024 11:50:26 Nausea and vomiting 86366402 R11.2 Gestation period, 33 weeks 54760454 Z3A.33 Monosomy X 950485181 Q96 .9 [id number] [facility] [address],[place] [address] 02/10/2024 11:07:14 02/10/2024 12:40:48 Gestation period, 34 weeks 26850747 Z3A.34 Monosomy X 991978059 Q96 .9 [id number] Corin Vasquez [facility] [address],[place] [address] 02/10/2024 11:06:55 02/10/2024 12:05:49 Maternal obesity complicating , childbirth and the puerperium, antepartum 3734939652 07 O99.215 [id number] Tyra Miller [facility] [address],[place] [address] 02/10/2024 11:17:13 02/10/2024 12:10:38 Maternal obesity complicating , childbirth and the puerperium, antepartum 0293619550 07 O99.213 Z3A.34 Health Concerns Section Related Observation LastModified by Organization Detai ls LastModified Time None Recorded Concern Status LastModified by Organization Details LastModified Time None Recorded Payers Encounter Date Sequence Insurance Name Policy Number Policy Kraus Covered Member ID Kraus Member ID Guarantor Name 02/10/2024 1 [facility] (MEDICAID HMO) [id number] Loulou Chang [id number] Dudley Natarajan OBGyn Episode Ob Episode Information Episode Created Date Number of Fetuses Patient Bloodtype Patient rh Status Prepregnancy Weight lbs Domestic Partner Domestic Partner Phone Father Name Cad Administrator Status 09/08/19 24 1 O Positive 244.2 OPEN Fetus Data First Name Last Name Admitted to NICU Weight (g) Sex Living Outcome Pediatric Complications Fetus ID Race Codes Race Delivery Type [id number] Problems Problem Notes [facility]: 09/13 with genetic couns elor & RN CHILD ultrasound, declined [facility]10[facility] @945 US & 11/08 945 US [facility] Problem Name Start Date End Date Resolution Snomed Code Not e Body mass index 40+ - severely obese 595040750 weekly testin g @34wks Monosomy X 109202115 HR on NIP T, declined [facility]/amniocentesis Angus [...] Date Ultra Sound Latest Days Gestation 0 [email or web address] 09/08/2023 03/22/20 24 0 Pre- Flowsheet Flowsheet [...] Weight in lbs Pre/Post Dialysis Refused Weight 237.719914192136 BP Diastolic BP Location Tested BP Systolic BP Type 66 100 Fetus Heart Rate Present A 165 Fetus Movement Comments [facility]. Nausea improved, no bleeding or cramping. complicated by high risk NIPT for monosomy X. Referral sent to [facility]. Discussed amniocentesis for diagnostic testing. Discussed risks of monosomy X. NT/NB wnl today. Other OB labs wnl. RTC 4 weeks, will follow up MFM referral. Flowsheet Date 10/07/2023 Lewis Score Blood Edema Fundus Height Fundus Units Glucose Ketones Leukocytes Nitrite Labor Signs Protein Cervic Dilation Cervic Effacement Cervic Station Type Weight in lbs Pre/Post Dialysis Refused Weight 236.371333770746 BP Diastolic BP Location Tested BP Systolic BP Type 72 116 Fetus Heart Rate Present A 160 Fetus Movement A No Comments Doing well, no movemen t yet. No cramping, bleeding or nausea. Saw MFM for HR Monosomy X on NIPT, declined [facility]/amnio. Has follow up visit with them on Thursday. Discussed anatomy US with [facility], otherwise normal care in 4 weeks. Flowsheet Date 11/10/2023 Lewis Score Blood Edema Fundus Height Fundus Units Glucose Ketones Leukocytes Nitrite Labor Signs Protein Cervic Dilation Cervic Effacement Cervic Station Type Weight in lbs Pre/Post Dialysis Refused Weight 237.485463175000 BP Diastolic BP Location Tested BP Systolic BP Type 61 108 Fetus Heart Rate Present A 145 Fetus Movement A Yes Comments Baby moving well. Had anatom y US with [facility] yesterday, incomplete but normal visualized anatomy. Repeat in 4 weeks with M. No cramping or bleeding. RTC 4 weeks. Flowsheet Date 12/09/2023 Lewis Score Blood Edema Fundus Height Fundus Units Glucose Ketones Leukocytes Nitrite Labor Signs Protein Cervic Dilation Cervic Effacement Cervic Station neg none trace Type Weight in lbs Pre/Post Dialysis Refused 238.992952759228 BP Diastolic BP Location Tested BP Systolic BP Type 75 L arm 111 sitting Fetus Heart Rate Present A 150 Fetus Movement A Yes Comments Pateint c/o of lower back pa in and lower pelvic pain. Discussed tylenol, ice/hot packs, and belly band. Good movement. Had repeat anatomy with MFM, all normal; EFW 90%, growth US scheduled for 4 weeks with [facility]. Discussed GCT and labs for next visit. RTC 3-4 weeks. Flowsheet Date 01/06/2024 Lewis Score Blood Edema Fundus Height Fundus Units Glucose Ketones Leukocytes Nitrite Labor Signs Protein Cervic Dilation Cervic Effacement Cervic Station neg none none trace Type Weight in lbs Pre/Post Dialysis Refused 243.768440806747 BP Diastolic BP Location Tested BP Systolic BP Type 76 L arm 122 sitting Fetus Heart Rate Present Fetus Movement A Yes Comments Good movement. No cram ping or bleeding. Repeat growth with MFM, EFW 75%. Continue serial growth US per MFM. GCT and labs today. Discussed tdap vaccine. Desires EIL on 03/15 as partner is going to basic training for the [employer]. Discussed SP flooring professional, patient will make appointmetns with her to meet and discuss EIL. RTC 2 weeks. Flowsheet Date 01/20/2024 Lewis Score Blood Edema Fundus Height Fundus Units Glucose Ketones Leukocytes Nitrite Labor Signs Protein Cervic Dilation Cervic Effacement Cervic Station neg none none trace Type Weight in lbs Pre/Post Dialysis Refused Weight 246.095406072404 BP Diastolic BP Location Tested BP Systolic [...] Weight in lbs Pre/Post Dialysis Refused Weight 246.224627592063 BP Diastolic BP Location Tested BP Systolic [...] Weight in lbs Pre/Post Dialysis Refused Weight 249.887089269172 BP Diastolic BP Location Tested BP Systolic [...] Weight in lbs Pre/Post Dialysis Refused Weight 247.468867855643 BP Diastolic BP Location Tested BP Systolic BP Type 77 122 Fetus Heart Rate Present Fetus Movement Comments Flowsheet Date 02/17/2024 Lewis Score Blood Edema Fundus Height Fundus Units Glucose Ketones Leukocytes Nitrite Labor Signs Protein Cervic Dilation Cervic Effacement Cervic Station none Type Weight in lbs Pre/Post Dialysis Refused Weight 247.923032391719 BP Diastolic BP Location Tested BP Systolic [...] Weight in lbs Pre/Post Dialysis Refused Weight 248.011229350430 BP Diastolic BP Location Tested BP Systolic [...] Type Weight in lbs Pre/Post Dialysis Refused 249.976130525710 BP Diastolic BP Location Tested BP Systolic [...] Weight in lbs Pre/Post Dialysis Refused Weight 248.843330426467 BP Diastolic BP Location Tested BP Systolic BP Type 74 L arm 118 sitting Fetus Heart Rate Present A 140 Fetus Movement A Yes Comments Good movement. No ctx, LOF, VB. Will move induction from 03/15 to 03/16 due to staffing issues at [place]. BPP 10/28 at [facility] Thursday, NST reactive today. Labor precautions reviewed. Menstrual History Last Menstrual Date Menses Monthly On Bcp Conception Prior Menses Frequency Hcg Plus Date Menarche Onset Age 0306/03/2023 Genetic Screening And Infection History Question Response Note Mental Retardation/Autism false Patient's Age Will Be 35 Years Or Older At Estim ated Date of Delivery false Thalassemia (Spanish, Pashto, Mediterranean, Or Background): MCV < 80 false Neural Tube Defect (Meningomyelocele, Spina Bifi da, Or Anencephaly) false Congenital Heart Defect false Down Syndrome false Ben-Sachs (eg, Taoist, Cajun, Frisian-Harney) f alse Juve Disease false Sickle Cell Disease Or Trait () false Hemophilia Or Other Blood Disorders false Muscular Dystrophy false Cystic Fibrosis false [place]'s Chorea false Intellectual Disability/Autism false If Yes, [...]
--- OUTSIDE RECORDS SUMMARY | 2024-03-25 06:50 | XMS_ITS | Continuity of Care Document ---
Author Organization [facility] [place] Address [address] [place] [address] Assessment No assessment recorded. Plan of Treatment Reminders Order Date Submit Date Provider Last Modified By Organization Details Last Modified Time Details Appointments SURG POST OP 025 10:45AM HEIDI COLON MD Not available Not available Not available Lab None record ed. Referral None record ed. Procedures None record ed. Surgeries None record ed. Imaging non-st ress test 024 02/10/20 [email or web address] [place], [address], [place], [address], 02/13/2024 06:53:19 Medication Orders None record ed. Patient TargetsNo targets recorded. Patient InstructionsNo instructions recorded. Reason for Referral None Reported. Results Created Date Observation Date Name Description Value Unit Range Abnormal Flag Note LastModifiedBy Organization Detail LastModifiedTime 09/08/19 24 09/08/2023 US, obste tric, nucha l trans lucen cy No observ ation record ed. [facility] [address], [place], [address], 09/10/2023 10:53:56 09/08/19 24 09/08/2023 US, obste tric, nucha l trans lucen cy No observ ation record ed. [email or web address] [place] [address], [place], [address], 09/08/2023 13:17:08 09/14/19 24 09/14/2023 US, obste tric, follo w-up No observ ation record ed. [facility] [address], [place], [address], 09/16/2023 14:33:23 09/14/19 24 09/14/2023 US, obste tric, trans abdom inal No observ ation record ed. [email or web address] [facility] [address], [place], [address], 09/15/2023 15:09:15 10/12/19 24 10/12/2023 US, obste tric No observ ation record ed. [address] [facility] [address], [place], [address], 10/13/2023 16:44:42 11/09/19 24 11/09/2023 US, obste tric, follo w-up No observ ation record ed. [email or web address] [facility] [address], [place], [address], 11/10/2023 16:45:37 12/07/19 24 12/07/2023 imagi ng/di agnos tic resul t No observ ation record ed. [facility] [address], [place], [address], 12/11/2023 10:32:37 01/04/20 24 01/04/2024 imagi ng/di agnos tic resul t No observ ation record ed. [facility] [address], [place], [address], 01/07/2024 12:12:29 02/02/20 24 02/01/2024 US, obste tric, follo w-up No observ ation record ed. [email or web address] [facility] [address], [place], [address], 02/04/2024 10:30:16 02/10/20 24 02/10/2024 non-s tress test No observ ation record ed. [email or web address] [place] [address], [place], [address], 02/10/2024 11:58:14 02/10/20 24 02/10/2024 US, obste tric, bioph ysica l profi le + non-s tress test No observ ation record ed. [email or web address] [place] [address], [place], [address], 02/10/2024 12:45:48 02/10/20 24 02/10/2024 US, obste tric, bioph ysica l profi le + non-s tress test No observ ation record ed. [email or web address] [address], [place], [address], 02/10/2024 22:00:22 02/17/20 24 02/17/2024 US, obste tric, bioph ysica l profi le + non-s tress test No observ ation record ed. [email or web address] [place] [address], [place], [address], 02/17/2024 13:14:35 02/17/20 24 02/17/2024 US, obste tric, bioph ysica l profi le + non-s tress test No observ ation record ed. [email or web address] [address], [place], [address], 02/19/2024 01:03:22 02/17/20 24 02/17/2024 non-s tress test No observ ation record ed. [email or web address] [place] [address], [place], [address], 02/17/2024 18:46:39 02/17/20 non-s tress test No observ ation record ed. [email or web address] [place] [address], [place], [address], 02/17/2024 18:48:46 02/24/20 24 02/24/2024 US, obste tric, bioph ysica l profi le + non-s tress test No observ ation record ed. [facility] [address], [place], [address], 02/24/2024 14:24:08 02/24/20 24 02/24/2024 US, obste tric, follo w-up No observ ation record ed. [facility] [address], [place], [address], 02/24/2024 14:24:20 02/24/20 24 02/24/2024 US, obste tric, bioph ysica l profi le + non-s tress test No observ ation record ed. [address] [facility], [place], [address], 02/25/2024 11:50:17 02/24/20 24 02/24/2024 non-s tress test No observ ation record ed. [email or web address] [place] [address], [place], [address], 02/24/2024 12:00:12 03/01/20 24 02/29/2024 imagi ng/di agnos tic resul t No observ ation record ed. [facility] [address] [place] [address], [address], 03/01/2024 17:20:31 03/03/20 24 03/03/2024 US, obste tric, bioph ysica l profi le + non-s tress test No observ ation record ed. [email or web address] [place] [address], [place], [address], 03/03/2024 12:20:34 03/03/20 24 03/03/2024 US, obste tric, bioph ysica l profi le + non-s tress test No observ ation record ed. [email or web address] [address], [place], [address], 03/03/2024 20:54:47 03/03/20 24 03/03/2024 non-s tress test No observ ation record ed. [email or web address] [place] [address], [place], [address], 03/03/2024 14:58:50 03/08/20 24 03/07/2024 imagi ng/di agnos tic resul t No observ ation record ed. [facility] [address], [address], 03/09/2024 00:46:18 03/09/20 24 03/09/2024 non-s tress test No observ ation record ed. [email or web address] [place] [address], [place], [address], 03/09/2024 11:26:46 03/14/20 24 03/14/2024 imagi ng/di agnos tic resul t No observ ation record ed. [facility] [address], [address], 03/14/2024 13:30:26 03/17/20 24 03/14/2024 US, obste tric, follo w-up No observ ation record ed. [email or web address] [facility] [address] [place] [address], [address], 03/20/2024 15:27:00 Result Notes None recorded. Problems Name Problem SNOMED Code Status Onset Date Resolution Date Notes Provider Name and Address Organization Details Recorded Time 69698428 Active 2023 Jennie Grossman [facility] 4 12:13:08 Monosomy X 719670060 Active HR on NIPT, declined [facility]S/amnio centesis HEIDI COLON MD [address], [place], [address], [facility] 4 12:18:50 Monosomy X 373109866 Active HR on NIPT, declined CVS/amnio centesis HEIDI COLON MD [address], [place], [address], [facility] 4 12:18:50 Body mass index 40+ - severely obese 331125594 Active weekly testing @34wks Jillian Morin [facility] 4 15:45:52 Problem Notes None recorded. Procedures Surgical History None recorded. Imaging Results Imaging Date Name Status LastModified by Organiz ation Details LastModified Time 02/10/2024 [facility] [place] [address] [address], [place], [address], 02/10/2024 11:58:14 Procedure Notes None recorded. Medical [...] 4 162.56 cm 99.28 % 42.7 kg/m2 109375. 5 g 121 mm[Hg] 76 mm[Hg] Tammie Haddad [facility] 12:19:44 Social History Question Answer Notes LastModified by Organizat ion Details LastModified Time Tobacco Smoking Status Never Smoker Susana Dove null, [facility] 2023 15:08:14 What Is [...] Or The Highest Degree You Have Received? [id number] Information not available 2023 Are There Any [...] Anxious, Or Unable To Sleep At Night)? [id number] Information not available 2023 Do You Use Any Illicit Or Recreational Drugs? No Information not available 2023 Do You Use Sunscreen Routinely? No Information not available 2023 Have You Used IV Drugs? No Information not available 2023 Sex: Unknown Functional Status Question Answer Note LastModified by Organizat ion Details LastModified Time Do you have difficulty walking or climbing stairs? No [email or web address] Information not available 01/06/2024 Are you able to walk? YESWOREST Information not available 2023 Are you able to care for yourself? Yes [email or web address] Information not available 01/06/2024 Do you have difficulty dressing or bathing? No [email or web address] Information not available 01/06/2024 What is your [...] Diagnosis/Indication Diagnosis SNOMED-CT Code Diagnosis ICD10 Code [id number] HEIDI COLON MD [place] [address] [address] 01/20/2024 11:06:31 01/20/2024 12:07:38 Anemia of 76445293 O99.019 Maternal o besity complicating , childbirth and the puerperium, antepartum 0758380403 07 O99.212 Gestation period, 31 weeks 89769226 Z3A.31 [id number] HEIDI COLON MD [place] [address] [address] 02/03/2024 10:35:23 02/03/2024 11:50:26 Nausea and vomiting 86838273 R11.2 Gestation period, 33 weeks 19906903 Z3A.33 Monosomy X 593599673 Q96 .9 [id number] [facility] [address] [address] 02/10/2024 11:07:14 02/10/2024 12:40:48 Gestation period, 34 weeks 95372206 Z3A.34 Monosomy X 306451954 Q96 .9 185849 Corin Vasquez [place] [address] [address] 02/10/2024 11:06:55 02/10/2024 12:05:49 Maternal obesity complicating , childbirth and the puerperium, antepartum 1328407268 07 O99.215 [id number] Tyra [facility] [address] [address] 02/10/2024 11:17:13 02/10/2024 12:10:38 Maternal obesity complicating , childbirth and the puerperium, antepartum 2380385153 07 O99.213 Z3A.34 Health Concerns Section Related Observation LastModified by Organization Detai ls LastModified Time None Recorded Concern Status LastModified by Organization Details LastModified Time None Recorded Payers Encounter Date Sequence Insurance Name Policy Number Policy Kraus Covered Member ID Kraus Member ID Guarantor Name 02/10/2024 1 [facility] (MEDICAID HMO) [id number] Louloura Chang [id number] Dudley Natarajan OBGyn Episode Ob Episode Information Episode Created Date Number of Fetuses Patient Bloodtype Patient rh Status Prepregnancy Weight lbs Domestic Partner Domestic Partner Phone Father Name News Specialist Status 09/08/19 24 1 O Positive 244.2 OPEN Fetus Data First Name Last Name Admitted to NICU Weight (g) Sex Living Outcome Pediatric Complications Fetus ID Race Codes Race Delivery Type [id number] Problems Problem Notes MFM: 09/13 with genetic couns elor & PREP MANAGER ultrasound, declined CVS10/11 @945 US & 11/08 945 US [facility] Problem Name Start Date End Date Resolution Snomed Code Not e Body mass index 40+ - severely obese 874678050 weekly testin g @34wks Monosomy X 112906277 HR on NIP T, declined CVS/amniocentesis Angus [...] Date Ultra Sound Latest Days Gestation 0 [email or web address] 09/08/2023 03/22/20 24 0 Pre-jerri Flowsheet Flowsheet [...] Weight in lbs Pre/Post Dialysis Refused Weight 237.575042103231 BP Diastolic BP Location Tested BP Systolic BP Type 66 100 Fetus Heart Rate Present A 165 Fetus Movement Comments Patient presents to [facility] care. Nausea improved, no bleeding or cramping. complicated by high risk NIPT for monosomy X. Referral sent to [facility]. Discussed amniocentesis for diagnostic testing. Discussed risks of monosomy X. NT/NB wnl today. Other OB labs wnl. RTC 4 weeks, will follow up MFM referral. Flowsheet Date 10/07/2023 Lewis Score Blood Edema Fundus Height Fundus Units Glucose Ketones Leukocytes Nitrite Labor Signs Protein Cervic Dilation Cervic Effacement Cervic Station Type Weight in lbs Pre/Post Dialysis Refused Weight 236.713441866537 BP Diastolic BP Location Tested BP Systolic BP Type 72 116 Fetus Heart Rate Present A 160 Fetus Movement A No Comments Doing well, no movemen t yet. No cramping, bleeding or nausea. Saw [facility] for HR Monosomy X on NIPT, declined CVS/amnio. Has follow up visit with them on Thursday. Discussed anatomy US with [facility], otherwise normal care in 4 weeks. Flowsheet Date 11/10/2023 Lewis Score Blood Edema Fundus Height Fundus Units Glucose Ketones Leukocytes Nitrite Labor Signs Protein Cervic Dilation Cervic Effacement Cervic Station Type Weight in lbs Pre/Post Dialysis Refused Weight 237.095129447707 BP Diastolic BP Location Tested BP Systolic BP Type 61 108 Fetus Heart Rate Present A 145 Fetus Movement A Yes Comments Baby moving well. Had anatom y US with [facility] yesterday, incomplete but normal visualized anatomy. Repeat in 4 weeks with [facility]. No cramping or bleeding. RTC 4 weeks. Flowsheet Date 12/09/2023 Lewis Score Blood Edema Fundus Height Fundus Units Glucose Ketones Leukocytes Nitrite Labor Signs Protein Cervic Dilation Cervic Effacement Cervic Station neg none trace Type Weight in lbs Pre/Post Dialysis Refused 238.578228343502 BP Diastolic BP Location Tested BP Systolic [...] Type Weight in lbs Pre/Post Dialysis Refused 243.992722911145 BP Diastolic BP Location Tested BP Systolic BP Type 76 L arm 122 sitting Fetus Heart Rate Present Fetus Movement A Yes Comments Good movement. No cram ping or bleeding. Repeat growth with MFM, EFW 75%. Continue serial growth US per [facility]. GCT and labs today. Discussed tdap vaccine. Desires EIL on 03/15 as partner is going to basic training for the [employer]. 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 RTC 2 weeks. Flowsheet Date 01/20/2024 Lewis Score Blood Edema Fundus Height Fundus Units Glucose Ketones Leukocytes Nitrite Labor Signs Protein Cervic Dilation Cervic Effacement Cervic Station neg none none trace Type Weight in lbs Pre/Post Dialysis Refused Weight 246.229873496636 BP Diastolic BP Location Tested BP Systolic [...] Weight in lbs Pre/Post Dialysis Refused Weight 246.172422256295 BP Diastolic BP Location Tested BP Systolic BP Type 66 L arm 118 sitting Fetus Heart Rate Present Fetus Movement A Yes Comments Patient c/o of some nausea a nd [place]. No bleeding. Good movement. Had MFM appt yesterday, EFW 90%. Scheduled for repeat in 4 weeks to monitor growth. Getting RSV vaccine today. Having some increased nausea, will send zofran. RTC 2 weeks. Discussed preadmission. Flowsheet Date 02/10/2024 Elwis Score Blood Edema Fundus Height Fundus [...] Weight in lbs Pre/Post Dialysis Refused Weight 249.853403365292 BP Diastolic BP Location Tested BP Systolic [...] Weight in lbs Pre/Post Dialysis Refused Weight 247.197293486262 BP Diastolic BP Location Tested BP Systolic BP Type 77 122 Fetus Heart Rate Present Fetus Movement Comments Flowsheet Date 02/17/2024 Lewis Score Blood Edema Fundus Height Fundus Units Glucose Ketones Leukocytes Nitrite Labor Signs Protein Cervic Dilation Cervic Effacement Cervic Station none Type Weight in lbs Pre/Post Dialysis Refused Weight 247.852572271117 BP Diastolic BP Location Tested BP Systolic [...] Weight in lbs Pre/Post Dialysis Refused Weight 248.312844330525 BP Diastolic BP Location Tested BP Systolic [...] Type Weight in lbs Pre/Post Dialysis Refused 249.014647614392 BP Diastolic BP Location Tested BP Systolic [...] Weight in lbs Pre/Post Dialysis Refused Weight 248.209251039114 BP Diastolic BP Location Tested BP Systolic BP Type 74 L arm 118 sitting Fetus Heart Rate Present A 140 Fetus Movement A Yes Comments Good movement. No ctx, LOF, VB. Will move induction from 03/15 to 03/16 due to staffing issues at [facility]. BPP 8/8 at [facility] Thursday, NST reactive today. Labor precautions reviewed. Menstrual History Last Menstrual Date Menses Monthly On Bcp Conception Prior Menses Frequency Hcg Plus Date Menarche Onset Age 0306/03/2023 Genetic Screening And Infection History Question Response Note Mental Retardation/Autism false Patient's Age Will Be 35 Years Or Older At Estim ated Date of Delivery false Thalassemia (Ugandan, Sinhala, Mediterranean, Or Background): MCV < 80 false Neural Tube Defect (Meningomyelocele, Spina Bifi da, Or Anencephaly) false Congenital Heart Defect false Down Syndrome false Ben-Sachs (eg, Orthodoxy, Cajun, Tamazight-Wolfe) f alse Juve Disease false Sickle Cell Disease Or Trait () false Hemophilia Or Other Blood Disorders false Muscular Dystrophy false Cystic Fibrosis false [place]'s Chorea false Intellectual Disability/Autism false If Yes, [...]
--- OUTSIDE RECORDS SUMMARY | 2024-03-25 06:50 | XMS_ITS | Continuity of Care Document ---
Author Organization [facility] [place] Address [address] [place] [address] [place] [address] Assessment No assessment recorded. Plan of Treatment Reminders Order Date Submit Date Provider Last Modified By Organization Details Last Modified Time Details Appointments SURG POST OP 2024 10:45A Dayton COLON MD Not available Not available Not available Lab None recorded. Referral None recorded. Procedures None recorded. Surgeries None recorded. Imaging US, obstetric , biophysic al profile + non-stres s test 2023 024 [email or web address] [place], [address], [place], [address], 02/18/2024 00:19:45 Medication Orders None recorded. Patient TargetsNo targets recorded. Patient InstructionsNo instructions recorded. Reason for Referral None Reported. Results Created Date Observation Date Name Description Value Unit Range Abnormal Flag Note LastModifiedBy Organization Detail LastModifiedTime 09/08/1909/08/2023 US, obste tric, nucha l trans lucen cy No observ ation record ed. R[facility] [address], [place], [address], 09/10/2023 10:53:56 09/08/1909/08/2023 US, obste tric, nucha l trans lucen cy No observ ation record ed. [email or web address] [place] [address], [place], [address], 09/08/2023 13:17:08 09/14/19 24 09/14/2023 US, obste tric, follo w-up No observ ation record ed. [facility] [address], [place], [address], 09/16/2023 14:33:23 09/14/19 24 09/14/2023 US, obste tric, trans abdom inal No observ ation record ed. [email or web address] [facility] [address], [place], [address], 09/15/2023 15:09:15 10/12/19 24 10/12/2023 US, obste tric No observ ation record ed. [email or web address] [facility] [address], [place], [address], 10/13/2023 16:44:42 11/09/19 24 11/09/2023 US, obste tric, follo w-up No observ ation record ed. [email or web address] [facility] [address], [place], [address], 11/10/2023 16:45:37 12/07/19 24 12/07/2023 imagi ng/di agnos tic resul t No observ ation record ed. [facility] [address], [place], [address], 12/11/2023 10:32:37 01/04/20 24 01/04/2024 imagi ng/di agnos tic resul t No observ ation record ed. [facility] [address], [place], [address], 01/07/2024 12:12:29 02/02/20 24 02/01/2024 US, obste tric, follo w-up No observ ation record ed. [email or web address] [facility] [address], [place], [address], 02/04/2024 10:30:16 02/10/20 24 02/10/2024 non-s tress test No observ ation record ed. [email or web address] [place] [address], [place], [address], 02/10/2024 11:58:14 02/10/20 24 02/10/2024 US, obste tric, bioph ysica l profi le + non-s tress test No observ ation record ed. [email or web address] [place] [address], [place], [address], 02/10/2024 12:45:48 02/10/20 24 02/10/2024 US, obste tric, bioph ysica l profi le + non-s tress test No observ ation record ed. [email or web address] [address], [place], [address], 02/10/2024 22:00:22 02/17/20 24 02/17/2024 US, obste tric, bioph ysica l profi le + non-s tress test No observ ation record ed. [email or web address] [place] [address], [place], [address], 02/17/2024 13:14:35 02/17/20 24 02/17/2024 US, obste tric, bioph ysica l profi le + non-s tress test No observ ation record ed. [email or web address] [address], [place], [address], 02/19/2024 01:03:22 02/17/20 24 02/17/2024 non-s tress test No observ ation record ed. [email or web address] [place] [address], [place], [address], 02/17/2024 18:46:39 02/17/20 non-s tress test No observ ation record ed. [email or web address] [place] [address], [place], [address], 02/17/2024 18:48:46 02/24/20 24 02/24/2024 US, obste tric, bioph ysica l profi le + non-s tress test No observ ation record ed. [facility] [address], [place], [address], 02/24/2024 14:24:08 02/24/20 24 02/24/2024 US, obste tric, follo w-up No observ ation record ed. [facility] [address], [place], [address], 02/24/2024 14:24:20 02/24/20 24 02/24/2024 US, obste tric, bioph ysica l profi le + non-s tress test No observ ation record ed. [email or web address] [address] [facility], [place], [address], 02/25/2024 11:50:17 02/24/20 24 02/24/2024 non-s tress test No observ ation record ed. [email or web address] [place] [address], [place], [address], 02/24/2024 12:00:12 03/01/20 24 02/29/2024 imagi ng/di agnos tic resul t No observ ation record ed. [facility] [address] [place] [address], [address], 03/01/2024 17:20:31 03/03/20 24 03/03/2024 US, obste tric, bioph ysica l profi le + non-s tress test No observ ation record ed. [email or web address] [place] [address], [place], [address], 03/03/2024 12:20:34 03/03/20 24 03/03/2024 US, obste tric, bioph ysica l profi le + non-s tress test No observ ation record ed. [email or web address] [address], [place], [address], 03/03/2024 20:54:47 03/03/20 24 03/03/2024 non-s tress test No observ ation record ed. [email or web address] [place] [address], [place], [address], 03/03/2024 14:58:50 03/08/20 24 03/07/2024 imagi ng/di agnos tic resul t No observ ation record ed. [facility] [address], [address], 03/09/2024 00:46:18 03/09/20 24 03/09/2024 non-s tress test No observ ation record ed. [email or web address] [place] [address], [place], [address], 03/09/2024 11:26:46 03/14/20 24 03/14/2024 imagi ng/di agnos tic resul t No observ ation record ed. [facility] [address], [address], 03/14/2024 13:30:26 03/17/20 24 03/14/2024 US, obste tric, follo w-up No observ ation record ed. [email or web address] [facility] [address] [place] [address], [address], 03/20/2024 15:27:00 Result Notes None recorded. Problems Name Problem SNOMED Code Status Onset Date Resolution Date Notes Provider Name and Address Organization Details Recorded Time 65074732 Active 2023 Jennie Grossman [facility], [facility] 4 12:13:08 Monosomy X 910356855 Active HR on NIPT, declined [facility]/amnio centesis HEIDI COLON MD [address], [place], [address], [facility] 4 12:18:50 Monosomy X 425618765 Active HR on NIPT, declined [facility]/amnio centesis HEIDI COLON MD [address], [place], [address], [facility] 4 12:18:50 Body mass index 40+ - severely obese 058905837 Active weekly testing @34wks Jillian Morin [facility] 4 15:45:52 Problem Notes None recorded. Procedures Surgical History None recorded. Imaging Results Imaging Date Name Status LastModified by Organiz ation Details LastModified Time 02/17/2024 US, obstetric, biophysical profile + non-stress test completed [email or web address] [place] [address], [place], [address], 02/17/2024 13:14:35 02/17/2024 US, obstetric, biophysical profile + non-stress test completed [email or web address] [address], [place], [address], 02/19/2024 01:03:22 Procedure Notes None recorded. Medical [...] 4 162.56 cm 99.22 % 42.4 kg/m2 085722. 32 g 162.56 cm 99.22 % 42.4 kg/m2 270608. 32 g 122 mm[Hg] 247 mm[Hg] 122 mm[Hg] 77 mm[Hg] Tammie Haddad [facility] 4 18:45:26 Social History Question Answer Notes LastModified by Organizat ion Details LastModified Time Tobacco Smoking Status Never Smoker Susana Dove alyssa, [facility] 2023 15:08:14 What Is Your Level [...] Or The Highest Degree You Have Received? [id number] Information not available 2023 Are There Any [...] Anxious, Or Unable To Sleep At Night)? [id number] Information not available 2023 Do You Use Any Illicit Or Recreational Drugs? No Information not available 2023 Do You Use Sunscreen Routinely? No Information not available 2023 Have You Used IV Drugs? No Information not available 2023 Sex: Unknown Functional Status Question Answer Note LastModified by Organizat ion Details LastModified Time Do you have difficulty walking or climbing stairs? No [email or web address] Information not available 01/06/2024 Are you able to walk? YESWOREST Information not available 2023 Are you able to care for yourself? Yes [email or web address] Information not available 01/06/2024 Do you have difficulty dressing or bathing? No [email or web address] Information not available 01/06/2024 What is your [...] Diagnosis/Indication Diagnosis SNOMED-CT Code Diagnosis ICD10 Code [id number] HEIDI COLON MD [place] [address],[place] [address] 01/20/2024 11:06:31 01/20/2024 12:07:38 Anemia of 59338268 O99.019 Maternal o besity complicating , childbirth and the puerperium, antepartum 4308212877 07 O99.212 Gestation period, 31 weeks 51057393 Z3A.31 [id number] HEIDI COLON MD [place] [address] [address] 02/03/2024 10:35:23 02/03/2024 11:50:26 Nausea and vomiting 70926740 R11.2 Gestation period, 33 weeks 51135102 Z3A.33 Monosomy X 245809895 Q96 .9 [id number] [facility] [address] [address] 02/10/2024 11:07:14 02/10/2024 12:40:48 Gestation period, 34 weeks 37730020 Z3A.34 Monosomy X 346126210 Q96 .9 [id number] Corin Vasquez [place] [address],[place] [address] 02/10/2024 11:06:55 02/10/2024 12:05:49 Maternal obesity complicating , childbirth and the puerperium, antepartum 0242527593 07 O99.215 [id number] [facility] [address],[place] [address] 02/10/2024 11:17:13 02/10/2024 12:10:38 Maternal obesity complicating , childbirth and the puerperium, antepartum 1481404173 07 O99.213 Z3A.34 [id number] [facility] [address],[place] [address] 02/17/2024 10:40:25 02/17/2024 11:08:31 Maternal obesity complicating , childbirth and the puerperium, antepartum 2574177415 07 O99.213 Z3A.35 [id number] Tammie Haddad [place] [address],[place] [address] 02/17/2024 10:40:37 02/20/2024 03:50:45 Maternal obesity complicating , childbirth and the puerperium, antepartum 9174025899 07 O99.213 [id number] Carlene Macias CNM [place] [address],[place] [address] 02/17/2024 10:41:04 02/17/2024 12:08:39 Gestation period, 35 weeks 62149250 Z3A.35 Anemia 684756658 D64.9 Health Concerns Section Related Observation LastModified by Organization Detai ls LastModified Time None Recorded Concern Status LastModified by Organization Details LastModified Time None Recorded Payers Encounter Date Sequence Insurance Name Policy Number Policy Kraus Covered Member ID Kraus Member ID Guarantor Name 02/17/2024 1 [facility] (MEDICAID HMO) [id number] Loulou Chang [id number] Dudley Natarajan OBGyn Episode Ob Episode Information Episode Created Date Number of Fetuses Patient Bloodtype Patient rh Status Prepregnancy Weight lbs Domestic Partner Domestic Partner Phone Father Name Director Of Public Safety Status 09/08/19 24 1 O Positive 244.2 OPEN Fetus Data First Name Last Name Admitted to NICU Weight (g) Sex Living Outcome Pediatric Complications Fetus ID Race Codes Race Delivery Type [id number] Problems Problem Notes [facility]: 09/13 with genetic couns elor & SNIPPER ultrasound, declined [facility]10/11 @945 US & 11/08 945 US [facility] Problem Name Start Date End Date Resolution Snomed Code Not e Body mass index 40+ - severely obese 002394326 weekly testin g @34wks Monosomy X 241634402 HR on NIP T, declined [facility]S/amniocentesis Angus [...] Date Ultra Sound Latest Days Gestation 0 [email or web address] 09/08/2023 03/22/20 24 0 Pre-jerri Flowsheet Flowsheet [...] Weight in lbs Pre/Post Dialysis Refused Weight 237.528227760905 BP Diastolic BP Location Tested BP Systolic BP Type 66 100 Fetus Heart Rate Present A 165 Fetus Movement Comments [facility]. Nausea improved, no bleeding or cramping. complicated by high risk NIPT for monosomy X. Referral sent to [facility]. Discussed amniocentesis for diagnostic testing. Discussed risks of monosomy X. NT/NB wnl today. Other OB labs wnl. RTC 4 weeks, will follow up [facility] referral. Flowsheet Date 10/07/2023 Lewis Score Blood Edema Fundus Height Fundus Units Glucose Ketones Leukocytes Nitrite Labor Signs Protein Cervic Dilation Cervic Effacement Cervic Station Type Weight in lbs Pre/Post Dialysis Refused Weight 236.600053752512 BP Diastolic BP Location Tested BP Systolic [...] Weight in lbs Pre/Post Dialysis Refused Weight 237.548572312260 BP Diastolic BP Location Tested BP Systolic [...] Type Weight in lbs Pre/Post Dialysis Refused 238.260985725400 BP Diastolic BP Location Tested BP Systolic [...] Type Weight in lbs Pre/Post Dialysis Refused 243.000784559048 BP Diastolic BP Location Tested BP Systolic BP Type 76 L arm 122 sitting Fetus Heart Rate Present Fetus Movement A Yes Comments Good movement. No cram ping or bleeding. Repeat growth with MFM, EFW 75%. Continue serial growth US per MF. GCT and labs today. Discussed tdap vaccine. Desires EIL on 03/15 as partner is going to basic training for the [employer]. Discussed SP implementation engineer, patient will make appointmetns with her to meet and discuss EIL. RTC 2 weeks. Flowsheet Date 01/20/2024 Lewis Score Blood Edema Fundus Height Fundus Units Glucose Ketones Leukocytes Nitrite Labor Signs Protein Cervic Dilation Cervic Effacement Cervic Station neg none none trace Type Weight in lbs Pre/Post Dialysis Refused Weight 246.745976187490 BP Diastolic BP Location Tested BP Systolic [...] Weight in lbs Pre/Post Dialysis Refused Weight 246.341479669590 BP Diastolic BP Location Tested BP Systolic [...] Weight in lbs Pre/Post Dialysis Refused Weight 249.383303406972 BP Diastolic BP Location Tested BP Systolic [...] Weight in lbs Pre/Post Dialysis Refused Weight 247.414498754964 BP Diastolic BP Location Tested BP Systolic BP Type 77 122 Fetus Heart Rate Present Fetus Movement Comments Flowsheet Date 02/17/2024 Lewis Score Blood Edema Fundus Height Fundus Units Glucose Ketones Leukocytes Nitrite Labor Signs Protein Cervic Dilation Cervic Effacement Cervic Station none Type Weight in lbs Pre/Post Dialysis Refused Weight 247.299203805450 BP Diastolic BP Location Tested BP Systolic [...] Weight in lbs Pre/Post Dialysis Refused Weight 248.961917075455 BP Diastolic BP Location Tested BP Systolic [...] Type Weight in lbs Pre/Post Dialysis Refused 249.998021968717 BP Diastolic BP Location Tested BP Systolic [...] Weight in lbs Pre/Post Dialysis Refused Weight 248.718823183254 BP Diastolic BP Location Tested BP Systolic BP Type 74 L arm 118 sitting Fetus Heart Rate Present A 140 Fetus Movement A Yes Comments Good movement. No ctx, LOF, VB. Will move induction from 03/15 to 03/16 due to staffing issues at [place]. BPP 10/28 at [facility] Thursday, NST reactive today. Labor precautions reviewed. Menstrual History Last Menstrual Date Menses Monthly On Bcp Conception Prior Menses Frequency Hcg Plus Date Menarche Onset Age 0306/03/2023 Genetic Screening And Infection History Question Response Note Mental Retardation/Autism false Patient's Age Will Be 35 Years Or Older At Estim ated Date of Delivery false Thalassemia (English, Ethiopian, Mediterranean, Or Background): MCV < 80 false Neural Tube Defect (Meningomyelocele, Spina Bifi da, Or Anencephaly) false Congenital Heart Defect false Down Syndrome false Ben-Sachs (eg, Congregational, Cajun, Bolivian-[place]) f alse Juve Disease false Sickle Cell [...]
--- OUTSIDE RECORDS SUMMARY | 2024-03-25 06:50 | XMS_ITS | Continuity of Care Document ---
Author Organization [facility] Address [address] [place] [address] Assessment Encounter Date Assessment Date Assessment LastModified by Organization Details LastModified Time 02/17/2024 02/17/2024 Patient is __35_weeks . Discussed plan. [email or web address] Not available 02/17/2024 12:01:13 Plan of Treatment [...] 325 mg (65 mg iron) tablet [address] [id number], [address], [place], [id number], 02/17/2024 12:02:21 Patient TargetsNo targets recorded. Patient InstructionsNo instructions recorded. Reason for Referral None Reported. Results Created Date Observation Date Name Description Value Unit Range Abnormal Flag Note LastModifiedBy Organization Detail LastModifiedTime 09/08/19 24 09/08/2023 US, obste tric, nucha l trans lucen cy No observ ation record ed. RENO [address], [place], [address], 09/10/2023 10:53:56 09/08/19 24 09/08/2023 US, obste tric, nucha l trans lucen cy No observ ation record ed. [email or web address] [facility] [address], [place], [address], 09/08/2023 13:17:08 09/14/19 24 09/14/2023 US, obste tric, follo w-up No observ ation record ed. [email or web address] [facility] [address] [facility], [place], [address], 09/16/2023 14:33:23 09/14/19 24 09/14/2023 US, obste tric, trans abdom inal No observ ation record ed. [email or web address] [facility] [address], [place], [address], 09/15/2023 15:09:15 10/12/19 24 10/12/2023 US, obste tric No observ ation record ed. [email or web address] [facility] [address], [place], [address], 10/13/2023 16:44:42 11/09/19 24 11/09/2023 US, obste tric, follo w-up No observ ation record ed. [email or web address] [facility] [address], [place], [address], 11/10/2023 16:45:37 12/07/19 24 12/07/2023 imagi ng/di agnos tic resul t No observ ation record ed. [facility] [address], [place], [address], 12/11/2023 10:32:37 01/04/20 24 01/04/2024 imagi ng/di agnos tic resul t No observ ation record ed. [facility] [address], [place], [address], 01/07/2024 12:12:29 02/02/20 24 02/01/2024 US, obste tric, follo w-up No observ ation record ed. [facility] [address] [facility], [place], [address], 02/04/2024 10:30:16 02/10/20 24 02/10/2024 non-s tress test No observ ation record ed. [email or web address] [facility] [address], [place], [address], 02/10/2024 11:58:14 02/10/20 24 02/10/2024 US, obste tric, bioph ysica l profi le + non-s tress test No observ ation record ed. [email or web address] [facility] [address], [place], [address], 02/10/2024 12:45:48 02/10/20 24 02/10/2024 US, obste tric, bioph ysica l profi le + non-s tress test No observ ation record ed. [email or web address] [address], [place], [address], 02/10/2024 22:00:22 02/17/20 24 02/17/2024 US, obste tric, bioph ysica l profi le + non-s tress test No observ ation record ed. [email or web address] [facility] [address], [place], [address], 02/17/2024 13:14:35 02/17/20 24 02/17/2024 US, obste tric, bioph ysica l profi le + non-s tress test No observ ation record ed. [email or web address] [address], [place], [address], 02/19/2024 01:03:22 02/17/20 24 02/17/2024 non-s tress test No observ ation record ed. [email or web address] [facility] [address], [place], [address], 02/17/2024 18:46:39 02/17/20 non-s tress test No observ ation record ed. [facility] [address], [place], [address], 02/17/2024 18:48:46 02/24/20 24 02/24/2024 US, obste tric, bioph ysica l profi le + non-s tress test No observ ation record ed. [facility] [address], [place], [address], 02/24/2024 14:24:08 02/24/20 24 02/24/2024 US, obste tric, follo w-up No observ ation record ed. [facility] [address], [place], [address], 02/24/2024 14:24:20 02/24/20 24 02/24/2024 US, obste tric, bioph ysica l profi le + non-s tress test No observ ation record ed. [email or web address] [address], [place], [address], 02/25/2024 11:50:17 02/24/20 24 02/24/2024 non-s tress test No observ ation record ed. [email or web address] [facility] [address], [place], [address], 02/24/2024 12:00:12 03/01/20 24 02/29/2024 imagi ng/di agnos tic resul t No observ ation record ed. [facility] [address] [place] [address], [address], 03/01/2024 17:20:31 03/03/20 24 03/03/2024 US, obste tric, bioph ysica l profi le + non-s tress test No observ ation record ed. [email or web address] [facility] [address], [place], [address], 03/03/2024 12:20:34 03/03/20 24 03/03/2024 US, obste tric, bioph ysica l profi le + non-s tress test No observ ation record ed. [email or web address] [address], [place], [address], 03/03/2024 20:54:47 03/03/20 24 03/03/2024 non-s tress test No observ ation record ed. [facility] [address], [place], [address], 03/03/2024 14:58:50 03/08/20 24 03/07/2024 imagi ng/di agnos tic resul t No observ ation record ed. [facility] [address], [address], 03/09/2024 00:46:18 03/09/20 24 03/09/2024 non-s tress test No observ ation record ed. [email or web address] [facility] [address], [place], [address], 03/09/2024 11:26:46 03/14/20 24 03/14/2024 imagi ng/di agnos tic resul t No observ ation record ed. [facility] [address], [address], 03/14/2024 13:30:26 03/17/20 24 03/14/2024 US, obste tric, follo w-up No observ ation record ed. [facility] [address] [place], [address], 03/20/2024 15:27:00 Result Notes None recorded. Problems Name Problem SNOMED Code Status Onset Date Resolution Date Notes Provider Name and Address Organization Details Recorded Time 48623265 Active 2023 Jennie shah, [facility] 4 12:13:08 Monosomy X 358546378 Active HR on NIPT, declined [facility]am[facility] centesis HEIDI COLON MD [address], [place], [address], , P.C. 4 12:18:50 Monosomy X 267613340 Active HR on NIPT, declined [facility] centesis HEIDI COLON MD [address], [place], [address], , P.C. 4 12:18:50 Body mass index 40+ - severely obese 980446727 Active weekly testing @34wks Jillian shah, [facility] 4 15:45:52 Problem Notes None recorded. [...] DateTime 162.56 cm 99.22 % 42.4 kg/m2 792278. 32 g 162.56 cm 99.22 % 42.4 kg/m2 001873. 32 g 122 mm[Hg] 247 mm[Hg] 122 mm[Hg] 77 mm[Hg] Tammie Haddad [facility] 18:45:26 Social History Question Answer Notes LastModified by Organizat ion Details LastModified Time Tobacco Smoking Status Never Smoker Susana Dove alyssa, [facility] 2023 15:08:14 What Is Your Level [...] Or The Highest Degree You Have Received? [id number] Information not available 2023 Are There Any [...] Anxious, Or Unable To Sleep At Night)? [id number] Information not available 2023 Do You Use Any Illicit Or Recreational Drugs? No Information not available 2023 Do You Use Sunscreen Routinely? No Information not available 2023 Have You Used IV Drugs? No Information not available 2023 Sex: Unknown Functional Status Question Answer Note LastModified by Organizat ion Details LastModified Time Do you have difficulty walking or climbing stairs? No [email or web address] Information not available 01/06/2024 Are you able to walk? YESWOREST Information not available 2023 Are you able to care for yourself? Yes [email or web address] Information not available 01/06/2024 Do you have difficulty dressing or bathing? No [email or web address] Information not available 01/06/2024 What is your [...] Diagnosis/Indication Diagnosis SNOMED-CT Code Diagnosis ICD10 Code Diagnosis Note [id number] HEIDI COLON MD [facility] [address] [address] 01/20/2024 11:06:31 01/20/2024 12:07:38 Anemia of 73992382 O99.019 - Hgb 10.4- start Fe supplement - will recheck at 34 weeks Maternal o besity complicating , childbirth and the puerperium, antepartum 6184113282 07 O99.212 - plan for 34 week testing Gestation period, 31 weeks 94761472 Z3A.31 - continue PNV- plan for EIL 03/15492 HEIDI COLON MD [facility] [address] [address] 02/03/2024 10:35:23 02/03/2024 11:50:26 Nausea and vomiting 58548740 R11.2 Gestation period, 33 weeks 65877475 Z3A.33 Monosomy X 474266344 Q96 .9 - high risk on NIPT- MFM referral completed, patient declined diagnostic testing [id number] Carlene Macias CNM [facility] [address] [address] 02/10/2024 11:07:14 02/10/2024 12:40:48 Gestation period, 34 weeks 06832373 Z3A.34 Monosomy X 368706628 Q96 .9 [id number] [facility] [address] [address] 02/10/2024 11:06:55 02/10/2024 12:05:49 Maternal obesity complicating , childbirth and the puerperium, antepartum 9778533854 07 O99.215 [id number] [facility] [address] [address] 02/10/2024 11:17:13 02/10/2024 12:10:38 Maternal obesity complicating , childbirth and the puerperium, antepartum 8884982160 07 O99.213 Z3A.34 969498 [facility] [address] [address] 02/17/2024 10:40:25 02/17/2024 11:08:31 Maternal obesity complicating , childbirth and the puerperium, antepartum 3461133978 07 O99.213 Z3A.35 [id number] Tammie Haddad [facility] [address] [address] 02/17/2024 10:40:37 02/20/2024 03:50:45 Maternal obesity complicating , childbirth and the puerperium, antepartum 5580681881 07 O99.213 [id number] Carlene Macias [facility] [address] [address] 02/17/2024 10:41:04 02/17/2024 12:08:39 Gestation period, 35 weeks 77130263 Z3A.35 continue vitamin Anemia 549488183 D64.9 Health Concerns Section Related Observation LastModified by Organization Detai ls LastModified Time None Recorded Concern Status LastModified by Organization Details LastModified Time None Recorded Payers Encounter Date Sequence Insurance Name Policy Number Policy Kraus Covered Member ID Kraus Member ID Guarantor Name 02/17/2024 1 [facility] (MEDICAID HMO) [id number] Loulou Chang [id number] Dudley Natarajan OBGyn Episode Ob Episode Information Episode Created Date Number of Fetuses Patient Bloodtype Patient rh Status Prepregnancy Weight lbs Domestic Partner Domestic Partner Phone Father Name Transit Operator Status 09/08/19 24 1 O Positive 244.2 OPEN Fetus Data First Name Last Name Admitted to NICU Weight (g) Sex Living Outcome Pediatric Complications Fetus ID Race Codes Race Delivery Type [id number] Problems Problem Notes MFM: 09/13 with genetic couns elor & [facility] ultrasound, declined [facility]10/11 @945 US & 11/08 945 US [facility] Problem Name Start Date End Date Resolution Snomed Code Not e Body mass index 40+ - severely obese 836598780 weekly testin g @34wks Monosomy X 539202203 HR on NIP T, declined [facility]S/amniocentesis Cristi Calculation Initial Cristi Date Initial Exam Date Initial Exam Provider Initial Ultrasound Date Last Menstrual Period Date Ultra Sound Weeks Gestation 03/22/2024 09/08/2023 08/04/2023 06/03/2023 7 Eighteen To Twenty Week Cristi Update Ultra Sound Date Fundal Height At Umbil Quickening Date Ultra Sound Latest Weeks Gestation Final Cristi Confirmed By Final Cristi Confirmed Date Final Cristi Date Ultra Sound Latest Days Gestation 0 [email or web address] 09/08/2023 03/22/20 24 0 Pre-jerri Flowsheet Flowsheet [...] Weight in lbs Pre/Post Dialysis Refused Weight 237.830275805255 BP Diastolic BP Location Tested BP Systolic BP Type 66 100 Fetus Heart Rate Present A 165 Fetus Movement Comments Patient presents to [facility] care. Nausea improved, no bleeding or cramping. complicated by high risk NIPT for monosomy X. Referral sent to [facility]. Discussed amniocentesis for diagnostic testing. Discussed risks of monosomy X. NT/NB wnl today. Other OB labs wnl. RTC 4 weeks, will follow up [facility] referral. Flowsheet Date 10/07/2023 Lewis Score Blood Edema Fundus Height Fundus Units Glucose Ketones Leukocytes Nitrite Labor Signs Protein Cervic Dilation Cervic Effacement Cervic Station Type Weight in lbs Pre/Post Dialysis Refused Weight 236.662718898448 BP Diastolic BP Location Tested BP Systolic BP Type 72 116 Fetus Heart Rate Present A 160 Fetus Movement A No Comments Doing well, no movemen t yet. No cramping, bleeding or nausea. Saw MFM for HR Monosomy X on NIPT, declined [facility]/amnio. Has follow up visit with them on Thursday. Discussed anatomy US with [facility], otherwise normal care in 4 weeks. Flowsheet Date 11/10/2023 Lewis Score Blood Edema Fundus Height Fundus Units Glucose Ketones Leukocytes Nitrite Labor Signs Protein Cervic Dilation Cervic Effacement Cervic Station Type Weight in lbs Pre/Post Dialysis Refused Weight 237.741738720769 BP Diastolic BP Location Tested BP Systolic BP Type 61 108 Fetus Heart Rate Present A 145 Fetus Movement A Yes Comments Baby moving well. Had anatom y US with [facility] yesterday, incomplete but normal visualized anatomy. Repeat in 4 weeks with MFM. No cramping or bleeding. RTC 4 weeks. Flowsheet Date 12/09/2023 Lewis Score Blood Edema Fundus Height Fundus Units Glucose Ketones Leukocytes Nitrite Labor Signs Protein Cervic Dilation Cervic Effacement Cervic Station neg none trace Type Weight in lbs Pre/Post Dialysis Refused 238.129141657510 BP Diastolic BP Location Tested BP Systolic [...] Type Weight in lbs Pre/Post Dialysis Refused 243.946808425249 BP Diastolic BP Location Tested BP Systolic BP Type 76 L arm 122 sitting Fetus Heart Rate Present Fetus Movement A Yes Comments Good movement. No cram ping or bleeding. Repeat growth with MFM, EFW 75%. Continue serial growth US per [facility]. GCT and labs today. Discussed tdap vaccine. Desires EIL on 03/15 as partner is going to basic training for [employer]. Discussed [facility] cardiopulmonary physical therapist, patient will make appointmetns with her to meet and discuss EIL. RTC 2 weeks. Flowsheet Date 01/20/2024 Lewis Score Blood Edema Fundus Height Fundus Units Glucose Ketones Leukocytes Nitrite Labor Signs Protein Cervic Dilation Cervic Effacement Cervic Station neg none none trace Type Weight in lbs Pre/Post Dialysis Refused Weight 246.889047151594 BP Diastolic BP Location Tested BP Systolic [...] Weight in lbs Pre/Post Dialysis Refused Weight 246.691314627793 BP Diastolic BP Location Tested BP Systolic [...] Weight in lbs Pre/Post Dialysis Refused Weight 249.224766791302 BP Diastolic BP Location Tested BP Systolic [...] Weight in lbs Pre/Post Dialysis Refused Weight 247.478658279568 BP Diastolic BP Location Tested BP Systolic BP Type 77 122 Fetus Heart Rate Present Fetus Movement Comments Flowsheet Date 02/17/2024 Lewis Score Blood Edema Fundus Height Fundus Units Glucose Ketones Leukocytes Nitrite Labor Signs Protein Cervic Dilation Cervic Effacement Cervic Station none Type Weight in lbs Pre/Post Dialysis Refused Weight 247.268817208774 BP Diastolic BP Location Tested BP Systolic [...] Weight in lbs Pre/Post Dialysis Refused Weight 248.098531384067 BP Diastolic BP Location Tested BP Systolic [...] Type Weight in lbs Pre/Post Dialysis Refused 249.772888776398 BP Diastolic BP Location Tested BP Systolic [...] Weight in lbs Pre/Post Dialysis Refused Weight 248.205038934240 BP Diastolic BP Location Tested BP Systolic BP Type 74 L arm 118 sitting Fetus Heart Rate Present A 140 Fetus Movement A Yes Comments Good movement. No ctx, LOF, VB. Will move induction from 03/15 to 03/16 due to staffing issues at [place]. BPP 10/28 at [facility] Thursday, NST reactive today. Labor precautions reviewed. Menstrual History Last Menstrual Date Menses Monthly On Bcp Conception Prior Menses Frequency Hcg Plus Date Menarche Onset Age 0306/03/2023 Genetic Screening And Infection History Question Response Note Mental Retardation/Autism false Patient's Age Will Be 35 Years Or Older At Estim ated Date of Delivery false Thalassemia (Kittitian, Welsh, Mediterranean, Or Background): MCV < 80 false Neural Tube Defect (Meningomyelocele, Spina Bifi da, Or Anencephaly) false Congenital Heart Defect false Down Syndrome false Ben-Sachs (eg, Evangelical, Cajun, [place]z-[place]) f alse Juve Disease false Sickle Cell [...]
--- OUTSIDE RECORDS SUMMARY | 2024-03-25 06:50 | XMS_ITS | Continuity of Care Document ---
Author Organization [facility] [place] Address [address] [place] [address] Assessment No assessment recorded. Plan of Treatment Reminders Order Date Submit Date Provider Last Modified By Organization Details Last Modified Time Details Appointments SURG POST OP 025 10:45AM HEIDI COLON MD Not available Not available Not available Lab None record ed. Referral None record ed. Procedures None record ed. Surgeries None record ed. Imaging non-st ress test 024 02/17/20 24 [email or web address] [facility], [address], [place], [address], 02/19/2024 06:26:14 Medication Orders None record ed. Patient TargetsNo targets recorded. Patient InstructionsNo instructions recorded. Reason for Referral None Reported. Results Created Date Observation Date Name Description Value Unit Range Abnormal Flag Note LastModifiedBy Organization Detail LastModifiedTime 09/08/19 24 09/08/2023 US, obste tric, nucha l trans lucen cy No observ ation record ed. RENO [address], [place], [address], 09/10/2023 10:53:56 09/08/19 24 09/08/2023 US, obste tric, nucha l trans lucen cy No observ ation record ed. [email or web address] [facility] [address], [place], [address], 09/08/2023 13:17:08 09/14/19 24 09/14/2023 US, obste tric, follo w-up No observ ation record ed. [email or web address] [facility] [address], [place], [address], 09/16/2023 14:33:23 09/14/19 24 09/14/2023 US, obste tric, trans abdom inal No observ ation record ed. [email or web address] [facility] [address], [place], [address], 09/15/2023 15:09:15 10/12/19 24 10/12/2023 US, obste tric No observ ation record ed. [address] [facility] [address], [place], [address], 10/13/2023 16:44:42 11/09/19 24 11/09/2023 US, obste tric, follo w-up No observ ation record ed. [email or web address] [facility] [address], [place], [address], 11/10/2023 16:45:37 12/07/19 24 12/07/2023 imagi ng/di agnos tic resul t No observ ation record ed. [facility] [address], [place], [address], 12/11/2023 10:32:37 01/04/20 24 01/04/2024 imagi ng/di agnos tic resul t No observ ation record ed. [facility] [address], [place], [address], 01/07/2024 12:12:29 02/02/20 24 02/01/2024 US, obste tric, follo w-up No observ ation record ed. [email or web address] [facility] [address], [place], [address], 02/04/2024 10:30:16 02/10/20 24 02/10/2024 non-s tress test No observ ation record ed. [email or web address] [facility] [address], [place], [address], 02/10/2024 11:58:14 02/10/20 24 02/10/2024 US, obste tric, bioph ysica l profi le + non-s tress test No observ ation record ed. [email or web address] [facility] [address], [place], [address], 02/10/2024 12:45:48 02/10/20 24 02/10/2024 US, obste tric, bioph ysica l profi le + non-s tress test No observ ation record ed. [email or web address] [address], [place], [address], 02/10/2024 22:00:22 02/17/20 24 02/17/2024 US, obste tric, bioph ysica l profi le + non-s tress test No observ ation record ed. [email or web address] [facility] [address], [place], [address], 02/17/2024 13:14:35 02/17/20 24 02/17/2024 US, obste tric, bioph ysica l profi le + non-s tress test No observ ation record ed. [email or web address] [address], [place], [address], 02/19/2024 01:03:22 02/17/20 24 02/17/2024 non-s tress test No observ ation record ed. [email or web address] [facility] [address], [place], [address], 02/17/2024 18:46:39 02/17/20 non-s tress test No observ ation record ed. [facility] [address], [place], [address], 02/17/2024 18:48:46 02/24/20 24 02/24/2024 US, obste tric, bioph ysica l profi le + non-s tress test No observ ation record ed. [facility] [address], [place], [address], 02/24/2024 14:24:08 02/24/20 24 02/24/2024 US, obste tric, follo w-up No observ ation record ed. [facility] [address], [place], [address], 02/24/2024 14:24:20 02/24/20 24 02/24/2024 US, obste tric, bioph ysica l profi le + non-s tress test No observ ation record ed. [email or web address] [address] [facility], [place], [address], 02/25/2024 11:50:17 02/24/20 24 02/24/2024 non-s tress test No observ ation record ed. [email or web address] [facility] [address], [place], [address], 02/24/2024 12:00:12 03/01/20 24 02/29/2024 imagi ng/di agnos tic resul t No observ ation record ed. [facility] [address] [place] [address], [address], 03/01/2024 17:20:31 03/03/20 24 03/03/2024 US, obste tric, bioph ysica l profi le + non-s tress test No observ ation record ed. [email or web address] [facility] [address], [place], [address], 03/03/2024 12:20:34 03/03/20 24 03/03/2024 US, obste tric, bioph ysica l profi le + non-s tress test No observ ation record ed. [email or web address] [address], [place], [address], 03/03/2024 20:54:47 03/03/20 24 03/03/2024 non-s tress test No observ ation record ed. [email or web address] [facility] [address], [place], [address], 03/03/2024 14:58:50 03/08/20 24 03/07/2024 imagi ng/di agnos tic resul t No observ ation record ed. [facility] [address], [address], 03/09/2024 00:46:18 03/09/20 24 03/09/2024 non-s tress test No observ ation record ed. [email or web address] [facility] [address], [place], [address], 03/09/2024 11:26:46 03/14/20 24 03/14/2024 imagi ng/di agnos tic resul t No observ ation record ed. [facility] [address], [address], 03/14/2024 13:30:26 03/17/20 24 03/14/2024 US, obste tric, follo w-up No observ ation record ed. [email or web address] [facility] [address] [place] [address], [address], 03/20/2024 15:27:00 Result Notes None recorded. Problems Name Problem SNOMED Code Status Onset Date Resolution Date Notes Provider Name and Address Organization Details Recorded Time 11848286 Active 2023 Jennie Grossman [facility] 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 4 12:18:50 Monosomy X 274339952 Active HR on NIPT, declined CVS/amnio centesis HEIDI COLON MD [address], [place], [address], [facility] 4 12:18:50 Body mass index 40+ - severely obese 233263224 Active weekly testing @34wks Jillian Morin [facility] 4 15:45:52 Problem Notes None recorded. Procedures Surgical History None recorded. Imaging Results Imaging Date Name Status LastModified by Organiz ation Details LastModified Time 02/17/2024 non-stress test completed [facility] [address], [place], [address], 02/17/2024 18:46:39 Procedure Notes None recorded. Medical [...] 4 162.56 cm 99.22 % 42.4 kg/m2 843213. 32 g 162.56 cm 99.22 % 42.4 kg/m2 007742. 32 g 122 mm[Hg] 247 mm[Hg] 122 mm[Hg] 77 mm[Hg] Tammie Haddad [facility] 4 18:45:26 Social History Question [...] Or The Highest Degree You Have Received? PP95220-6 Information not available 2023 Are There Any [...] Anxious, Or Unable To Sleep At Night)? [id number] Information not available 2023 Do You Use Any Illicit Or Recreational Drugs? No Information not available 2023 Do You Use Sunscreen Routinely? No Information not available 2023 Have You Used IV Drugs? No Information not available 2023 Sex: Unknown Functional Status Question Answer Note LastModified by Organizat ion Details LastModified Time Do you have difficulty walking or climbing stairs? No [email or web address] Information not available 01/06/2024 Are you able to walk? YESWOREST Information not available 2023 Are you able to care for yourself? Yes [email or web address] Information not available 01/06/2024 Do you have difficulty dressing or bathing? No [email or web address] Information not available 01/06/2024 What is your [...] Diagnosis/Indication Diagnosis SNOMED-CT Code Diagnosis ICD10 Code [id number] HEIDI COLON MD [facility] [address] [address] 01/20/2024 11:06:31 01/20/2024 12:07:38 Anemia of 76359763 O99.019 Maternal o besity complicating , childbirth and the puerperium, antepartum 7693634350 07 O99.212 Gestation period, 31 weeks 89917526 Z3A.31 [id number] HEIDI COLON MD [facility] [address],[place] [address] 02/03/2024 10:35:23 02/03/2024 11:50:26 Nausea and vomiting 72993525 R11.2 Gestation period, 33 weeks 56288949 Z3A.33 Monosomy X 184285539 Q96 .9 [id number] Carlene Macias CNM [facility] [address],[place] [address] 02/10/2024 11:07:14 02/10/2024 12:40:48 Gestation period, 34 weeks 33260699 Z3A.34 Monosomy X 650899408 Q96 .9 [id number] Corin Christina [facility] [address],[place] [address] 02/10/2024 11:06:55 02/10/2024 12:05:49 Maternal obesity complicating , childbirth and the puerperium, antepartum 8070216605 07 O99.215 [id number] [facility] [address],[place] [address] 02/10/2024 11:17:13 02/10/2024 12:10:38 Maternal obesity complicating , childbirth and the puerperium, antepartum 6024120420 07 O99.213 Z3A.34 [id number] [facility] [address],[place] [address] 02/17/2024 10:40:25 02/17/2024 11:08:31 Maternal obesity complicating , childbirth and the puerperium, antepartum 9217114828 07 O99.213 Z3A.35 [id number] Tammie Haddad [facility] [address],[place] [address] 02/17/2024 10:40:37 02/20/2024 03:50:45 Maternal obesity complicating , childbirth and the puerperium, antepartum 0188240562 07 O99.213 [id number] [facility] [address],[place] [address] 02/17/2024 10:41:04 02/17/2024 12:08:39 Gestation period, 35 weeks 19645734 Z3A.35 Anemia 168832244 D64.9 Health Concerns Section Related Observation LastModified by Organization Detai ls LastModified Time None Recorded Concern Status LastModified by Organization Details LastModified Time None Recorded Payers Encounter Date Sequence Insurance Name Policy Number Policy Kraus Covered Member ID Kraus Member ID Guarantor Name 02/17/[address] [facility] (MEDICAID HMO) [id number] Loulou Chang [id number] Dudley Solomon Episode Ob Episode Information Episode Created Date Number of Fetuses Patient Bloodtype Patient rh Status Prepregnancy Weight lbs Domestic Partner Domestic Partner Phone Father Name Kennel Aide Status 09/08/19 24 1 O Positive 244.2 OPEN Fetus Data First Name Last Name Admitted to NICU Weight (g) Sex Living Outcome Pediatric Complications Fetus ID Race Codes Race Delivery Type [id number] Problems Problem Notes MFM: 09/13 with genetic couns elor & [employer] ultrasound, declined CVS10/11 @945 US & 11/08 945 US [facility] Problem Name Start Date End Date Resolution Snomed Code Not e Body mass index 40+ - severely obese 607274621 weekly testin g @34wks Monosomy X 342524781 HR on NIP T, declined CVS/amniocentesis Angus [...] Date Ultra Sound Latest Days Gestation 0 [email or web address] 09/08/2023 03/22/20 24 0 Pre-jerri Flowsheet Flowsheet [...] Weight in lbs Pre/Post Dialysis Refused Weight 237.397636703145 BP Diastolic BP Location Tested BP Systolic BP Type 66 100 Fetus Heart Rate Present A 165 Fetus Movement Comments Patient presents to [facility] care. Nausea improved, no bleeding or cramping. complicated by high risk NIPT for monosomy X. Referral sent to [facility]. Discussed amniocentesis for diagnostic testing. Discussed risks of monosomy X. NT/NB wnl today. Other OB labs wnl. RTC 4 weeks, will follow up [facility] referral. Flowsheet Date 10/07/2023 Lewis Score Blood Edema Fundus Height Fundus Units Glucose Ketones Leukocytes Nitrite Labor Signs Protein Cervic Dilation Cervic Effacement Cervic Station Type Weight in lbs Pre/Post Dialysis Refused Weight 236.627065104625 BP Diastolic BP Location Tested BP Systolic BP Type 72 116 Fetus Heart Rate Present A 160 Fetus Movement A No Comments Doing well, no movemen t yet. No cramping, bleeding or nausea. Saw MFM for HR Monosomy X on NIPT, declined CVS/amnio. Has follow up visit with them on Thursday. Discussed anatomy US with [facility], otherwise normal care in 4 weeks. Flowsheet Date 11/10/2023 Lewis Score Blood Edema Fundus Height Fundus Units Glucose Ketones Leukocytes Nitrite Labor Signs Protein Cervic Dilation Cervic Effacement Cervic Station Type Weight in lbs Pre/Post Dialysis Refused Weight 237.114428062966 BP Diastolic BP Location Tested BP Systolic BP Type 61 108 Fetus Heart Rate Present A 145 Fetus Movement A Yes Comments Baby moving well. Had anatom y US with [facility] yesterday, incomplete but normal visualized anatomy. Repeat in 4 weeks with MFM. No cramping or bleeding. RTC 4 weeks. Flowsheet Date 12/09/2023 Lewis Score Blood Edema Fundus Height Fundus Units Glucose Ketones Leukocytes Nitrite Labor Signs Protein Cervic Dilation Cervic Effacement Cervic Station neg none trace Type Weight in lbs Pre/Post Dialysis Refused 238.236613529042 BP Diastolic BP Location Tested BP Systolic BP Type 75 L arm 111 sitting Fetus Heart Rate Present A 150 Fetus Movement A Yes Comments Pateint c/o of lower back pa in and lower pelvic pain. Discussed tylenol, ice/hot packs, and belly band. Good movement. Had repeat anatomy with MF, all normal; EFW 90%, growth US scheduled for 4 weeks with [facility]. Discussed GCT and labs for next visit. RTC 3-4 weeks. Flowsheet Date 01/06/2024 Lewis Score Blood Edema Fundus Height Fundus Units Glucose Ketones Leukocytes Nitrite Labor Signs Protein Cervic Dilation Cervic Effacement Cervic Station neg none none trace Type Weight in lbs Pre/Post Dialysis Refused 243.996627153585 BP Diastolic BP Location Tested BP Systolic BP Type 76 L arm 122 sitting Fetus Heart Rate Present Fetus Movement A Yes Comments Good movement. No cram ping or bleeding. Repeat growth with MFM, EFW 75%. Continue serial growth US per [facility]. GCT and labs today. Discussed tdap vaccine. Desires EIL on 03/15 as partner is going to basic training for the [employer]. Discussed [employer] financial reporting consultant, patient will make appointmetns with her to meet and discuss EIL. RTC 2 weeks. Flowsheet Date 01/20/2024 Lewis Score Blood Edema Fundus Height Fundus Units Glucose Ketones Leukocytes Nitrite Labor Signs Protein Cervic Dilation Cervic Effacement Cervic Station neg none none trace Type Weight in lbs Pre/Post Dialysis Refused Weight 246.247893436894 BP Diastolic BP Location Tested BP Systolic [...] Weight in lbs Pre/Post Dialysis Refused Weight 246.593186466277 BP Diastolic BP Location Tested BP Systolic BP Type 66 L arm 118 sitting Fetus Heart Rate Present Fetus Movement A Yes Comments Patient c/o of some nausea a nd [place]. No bleeding. Good movement. Had MFM [...] Weight in lbs Pre/Post Dialysis Refused Weight 249.933499291310 BP Diastolic BP Location Tested BP Systolic [...] Weight in lbs Pre/Post Dialysis Refused Weight 247.916845768303 BP Diastolic BP Location Tested BP Systolic BP Type 77 122 Fetus Heart Rate Present Fetus Movement Comments Flowsheet Date 02/17/2024 Lewis Score Blood Edema Fundus Height Fundus Units Glucose Ketones Leukocytes Nitrite Labor Signs Protein Cervic Dilation Cervic Effacement Cervic Station none Type Weight in lbs Pre/Post Dialysis Refused Weight 247.111480898281 BP Diastolic BP Location Tested BP Systolic [...] Weight in lbs Pre/Post Dialysis Refused Weight 248.615021521253 BP Diastolic BP Location Tested BP Systolic [...] Type Weight in lbs Pre/Post Dialysis Refused 249.293655653670 BP Diastolic BP Location Tested BP Systolic [...] Weight in lbs Pre/Post Dialysis Refused Weight 248.837886588998 BP Diastolic BP Location Tested BP Systolic BP Type 74 L arm 118 sitting Fetus Heart Rate Present A 140 Fetus Movement A Yes Comments Good movement. No ctx, LOF, VB. Will move induction from 03/15 to 03/16 due to staffing issues at [place]. BPP 10/28 at [facility] Thursday, NST reactive today. Labor precautions reviewed. Menstrual History Last Menstrual Date Menses Monthly On Bcp Conception Prior Menses Frequency Hcg Plus Date Menarche Onset Age 0306/03/2023 Genetic Screening And Infection History Question Response Note Mental Retardation/Autism false Patient's Age Will Be 35 Years Or Older At Estim ated Date of Delivery false Thalassemia (Estonian, Slovak, Mediterranean, Or Background): MCV < 80 false Neural Tube Defect (Meningomyelocele, Spina Bifi da, Or Anencephaly) false Congenital Heart Defect false Down Syndrome false Ben-Sachs (eg, Religion, Cajun, [place]i-Citizen Of [place]) f alse Juve Disease false Sickle Cell Disease Or Trait () false Hemophilia Or Other Blood Disorders false Muscular Dystrophy false Cystic Fibrosis false Woods's Chorea false Intellectual Disability/Autism false If Yes, [...]
--- OUTSIDE RECORDS SUMMARY | 2024-03-25 06:51 | XMS_ITS | Continuity of Care Document ---
Author Organization [facility] Address [address] [place] [address] Assessment No assessment recorded. Plan of Treatment [...] 8 mg disintegr ating tablet 2023 024 [id number], [address], [place], [id number], 02/03/2024 11:42:18 Patient TargetsNo targets recorded. Patient InstructionsNo instructions recorded. Reason for Referral None Reported. Results Created Date Observation Date Name Description Value Unit Range Abnormal Flag Note LastModifiedBy Organization Detail LastModifiedTime 09/08/1909/08/2023 US, obste tric, nucha l trans lucen cy No observ ation record ed. [address], [facility], [place], [address], 09/10/2023 10:53:56 09/08/1909/08/2023 US, obste tric, nucha l trans lucen cy No observ ation record ed. [email or web address] [place] [address], [place], [address], 09/08/2023 13:17:08 09/14/19 24 09/14/2023 US, obste tric, follo w-up No observ ation record ed. [email or web address] [facility] [address], [place], [address], 09/16/2023 14:33:23 09/14/19 24 09/14/2023 US, obste tric, trans abdom inal No observ ation record ed. [address] [facility] [address], [place], [address], 09/15/2023 15:09:15 10/12/19 24 10/12/2023 US, obste tric No observ ation record ed. [address] [facility] [address], [place], [address], 10/13/2023 16:44:42 11/09/19 24 11/09/2023 US, obste tric, follo w-up No observ ation record ed. [facility] [address], [place], [address], 11/10/2023 16:45:37 12/07/19 24 12/07/2023 imagi ng/di agnos tic resul t No observ ation record ed. [facility] [address], [place], [address], 12/11/2023 10:32:37 01/04/20 24 01/04/2024 imagi ng/di agnos tic resul t No observ ation record ed. [facility] [address], [place], [address], 01/07/2024 12:12:29 02/02/20 24 02/01/2024 US, obste tric, follo w-up No observ ation record ed. [email or web address] [facility] [address], [place], [address], 02/04/2024 10:30:16 02/10/20 24 02/10/2024 non-s tress test No observ ation record ed. [email or web address] [place] [address], [place], [address], 02/10/2024 11:58:14 02/10/20 24 02/10/2024 US, obste tric, bioph ysica l profi le + non-s tress test No observ ation record ed. [email or web address] [place] [address], [place], [address], 02/10/2024 12:45:48 02/10/20 24 02/10/2024 US, obste tric, bioph ysica l profi le + non-s tress test No observ ation record ed. [email or web address] [address], [place], [address], 02/10/2024 22:00:22 02/17/20 24 02/17/2024 US, obste tric, bioph ysica l profi le + non-s tress test No observ ation record ed. [email or web address] [place] [address], [place], [address], 02/17/2024 13:14:35 02/17/20 24 02/17/2024 US, obste tric, bioph ysica l profi le + non-s tress test No observ ation record ed. [email or web address] [address], [place], [address], 02/19/2024 01:03:22 02/17/20 24 02/17/2024 non-s tress test No observ ation record ed. [email or web address] [place] [address], [place], [address], 02/17/2024 18:46:39 02/17/20 non-s tress test No observ ation record ed. [email or web address] [place] [address], [place], [address], 02/17/2024 18:48:46 02/24/20 24 02/24/2024 US, obste tric, bioph ysica l profi le + non-s tress test No observ ation record ed. [facility] [address], [place], [address], 02/24/2024 14:24:08 02/24/20 24 02/24/2024 US, obste tric, follo w-up No observ ation record ed. [facility] [address], [place], [address], 02/24/2024 14:24:20 02/24/20 24 02/24/2024 US, obste tric, bioph ysica l profi le + non-s tress test No observ ation record ed. [email or web address] [facility] [address] [facility], [place], [address], 02/25/2024 11:50:17 02/24/20 24 02/24/2024 non-s tress test No observ ation record ed. [email or web address] [place] [address], [place], [address], 02/24/2024 12:00:12 03/01/20 24 02/29/2024 imagi ng/di agnos tic resul t No observ ation record ed. [facility] [address] [place] [address], [address], 03/01/2024 17:20:31 03/03/20 24 03/03/2024 US, obste tric, bioph ysica l profi le + non-s tress test No observ ation record ed. [email or web address] [place] [address], [place], [address], 03/03/2024 12:20:34 03/03/20 24 03/03/2024 US, obste tric, bioph ysica l profi le + non-s tress test No observ ation record ed. [email or web address] [address], [place], [address], 03/03/2024 20:54:47 03/03/20 24 03/03/2024 non-s tress test No observ ation record ed. [email or web address] [place] [address], [place], [address], 03/03/2024 14:58:50 03/08/20 24 03/07/2024 imagi ng/di agnos tic resul t No observ ation record ed. [facility] [address], [address], 03/09/2024 00:46:18 03/09/20 24 03/09/2024 non-s tress test No observ ation record ed. [email or web address] [place] [address], [place], [address], 03/09/2024 11:26:46 03/14/20 24 03/14/2024 imagi ng/di agnos tic resul t No observ ation record ed. [facility] [address] [place] [address], [address], 03/14/2024 13:30:26 03/17/20 24 03/14/2024 US, obste tric, follo w-up No observ ation record ed. [email or web address] [facility] [address] [place] [address], [address], 03/20/2024 15:27:00 Result Notes None recorded. Problems Name Problem SNOMED Code Status Onset Date Resolution Date Notes Provider Name and Address Organization Details Recorded Time 08611745 Active 2023 Jennie Grossman alyssa, [facility] 4 12:13:08 Monosomy X 335035901 Active HR on NIPT, declined CVS/amnio centesis HEIDI COLON MD [address], [place], [address], [facility] 4 12:18:50 Monosomy X 299156974 Active HR on NIPT, declined CVS/amnio centesis HEIDI COLON MD [address], [place], [address], [facility] 4 12:18:50 Body mass index 40+ - severely obese 362754103 Active weekly testing @34wks [facility] 15:45:52 Problem Notes None recorded. [...] 4 162.56 cm 42.2 kg/m2 99.2 % 010021. 72 g 118 mm[Hg] 66 mm[Hg] Maude Peterson [facility] 4 11:18:49 Social History Question Answer Notes LastModified by Organizat ion Details LastModified Time Tobacco Smoking Status Never Smoker Susana shah [facility] 2023 15:08:14 What Is Your [...] Or The Highest Degree You Have Received? [id number] Information not available 2023 Are There Any [...] Anxious, Or Unable To Sleep At Night)? [id number] Information not available 2023 Do You Use Any Illicit Or Recreational Drugs? No Information not available 2023 Do You Use Sunscreen Routinely? No Information not available 2023 Have You Used IV Drugs? No Information not available 2023 Sex: Unknown Functional Status Question Answer Note LastModified by Organizat ion Details LastModified Time Do you have difficulty walking or climbing stairs? No [email or web address] Information not available 01/06/2024 Are you able [...] ) Y Other N Blood Transfusion N Drug/Latex Allergies/Reactions N Breast Cancer N Dermatologic Disorders N [...] Diagnosis/Indication Diagnosis SNOMED-CT Code Diagnosis ICD10 Code [id number] HEIDI COLON MD [place] [address],[place] [address] 01/06/2024 14:02:28 01/06/2024 14:43:21 Monosomy X 137981505 Q96.9 Maternal o besity complicating , childbirth and the puerperium, antepartum 8940407482 07 O99.212 Gestation period, 29 weeks 66697656 Z3A.29 [id number] HEIDI COLON MD [place] [address],[place] [address] 01/20/2024 11:06:31 01/20/2024 12:07:38 Anemia of 71305041 O99.019 Maternal o besity complicating , childbirth and the puerperium, antepartum 8958718718 07 O99.212 Gestation period, 31 weeks 06096662 Z3A.31 [id number] HEIDI COLON MD [place] [address],[place] [address] 02/03/2024 10:35:23 02/03/2024 11:50:26 Nausea and vomiting 14042405 R11.2 Gestation period, 33 weeks 53777188 Z3A.33 Monosomy X 827890825 Q96 .9 Health Concerns Section Related Observation LastModified by Organization Detai ls LastModified Time None Recorded Concern Status LastModified by Organization Details LastModified Time None Recorded Payers Encounter Date Sequence Insurance Name Policy Number Policy Kraus Covered Member ID Kraus Member ID Guarantor Name 02/03/2024 1 [facility] (MEDICAID HMO) [id number] Loulou Chang [id number] Dudley Natarajan OBGyn Episode Ob Episode Information Episode Created Date Number of Fetuses Patient Bloodtype Patient rh Status Prepregnancy Weight lbs Domestic Partner Domestic Partner Phone Father Name Shake Loader Status 09/08/19 24 1 O Positive 244.2 OPEN Fetus Data First Name Last Name Admitted to NICU Weight (g) Sex Living Outcome Pediatric Complications Fetus ID Race Codes Race Delivery Type [id number] Problems Problem Notes MFM: 09/13 with genetic couns elor & [facility] ultrasound, declined CVS10/11 @945 US & 11/[address] [facility] Problem Name Start Date End Date Resolution Snomed Code Not e Body mass index 40+ - severely obese 715440382 weekly testin g @34wks Monosomy X 142969021 HR on NIP T, declined CVS/amniocentesis Angus [...] Date Ultra Sound Latest Days Gestation 0 [email or web address] 09/08/2023 03/22/20 24 0 Pre-jerri Flowsheet Flowsheet [...] Weight in lbs Pre/Post Dialysis Refused Weight 237.784678743132 BP Diastolic BP Location Tested BP Systolic BP Type 66 100 Fetus Heart Rate Present A 165 Fetus Movement Comments Patient presents to [facility]. Nausea improved, no bleeding or cramping. complicated by high risk NIPT for monosomy X. Referral sent to [facility]. Discussed amniocentesis for diagnostic testing. Discussed risks of monosomy X. NT/NB wnl today. Other OB labs wnl. RTC 4 weeks, will follow up [facility] referral. Flowsheet Date 10/07/2023 Lewis Score Blood Edema Fundus Height Fundus Units Glucose Ketones Leukocytes Nitrite Labor Signs Protein Cervic Dilation Cervic Effacement Cervic Station Type Weight in lbs Pre/Post Dialysis Refused Weight 236.549049713443 BP Diastolic BP Location Tested BP Systolic BP Type 72 116 Fetus Heart Rate Present A 160 Fetus Movement A No Comments Doing well, no movemen t yet. No cramping, bleeding or nausea. Saw MFM for HR Monosomy X on NIPT, declined CVS/amnio. Has follow up visit with them on Thursday. Discussed anatomy US with [facility], otherwise normal care in 4 weeks. Flowsheet Date 11/10/2023 Lewis Score Blood Edema Fundus Height Fundus Units Glucose Ketones Leukocytes Nitrite Labor Signs Protein Cervic Dilation Cervic Effacement Cervic Station Type Weight in lbs Pre/Post Dialysis Refused Weight 237.147466461814 BP Diastolic BP Location Tested BP Systolic BP Type 61 108 Fetus Heart Rate Present A 145 Fetus Movement A Yes Comments Baby moving well. Had anatom y US with [facility] yesterday, incomplete but normal visualized anatomy. Repeat in 4 weeks with [facility]. No cramping or bleeding. RTC 4 weeks. Flowsheet Date 12/09/2023 Lewis Score Blood Edema Fundus Height Fundus Units Glucose Ketones Leukocytes Nitrite Labor Signs Protein Cervic Dilation Cervic Effacement Cervic Station neg none trace Type Weight in lbs Pre/Post Dialysis Refused 238.058490910439 BP Diastolic BP Location Tested BP Systolic BP Type 75 L arm 111 sitting Fetus Heart Rate Present A 150 Fetus Movement A Yes Comments Pateint c/o of lower back pa in and lower pelvic pain. Discussed tylenol, ice/hot packs, and belly band. Good movement. Had repeat anatomy with [facility], all normal; EFW 90%, growth US scheduled for 4 weeks with [facility]. Discussed GCT and labs for next visit. RTC 3-4 weeks. Flowsheet Date 01/06/2024 Lewis Score Blood Edema Fundus Height Fundus Units Glucose Ketones Leukocytes Nitrite Labor Signs Protein Cervic Dilation Cervic Effacement Cervic Station neg none none trace Type Weight in lbs Pre/Post Dialysis Refused 243.609775719883 BP Diastolic BP Location Tested BP Systolic BP Type 76 L arm 122 sitting Fetus Heart Rate Present Fetus Movement A Yes Comments Good movement. No cram ping or bleeding. Repeat growth with MFM, EFW 75%. Continue serial growth US per [facility]. GCT and labs today. Discussed tdap vaccine. Desires EIL on 03/15 as partner is going to basic training for the [employer]. Discussed SP education rep, patient will make appointmetns with her to meet and discuss EIL. RTC 2 weeks. Flowsheet Date 01/20/2024 Lewis Score Blood Edema Fundus Height Fundus Units Glucose Ketones Leukocytes Nitrite Labor Signs Protein Cervic Dilation Cervic Effacement Cervic Station neg none none trace Type Weight in lbs Pre/Post Dialysis Refused Weight 246.994333044429 BP Diastolic BP Location Tested BP Systolic [...] Weight in lbs Pre/Post Dialysis Refused Weight 246.333496582705 BP Diastolic BP Location Tested BP Systolic BP Type 66 L arm 118 sitting Fetus Heart Rate Present Fetus Movement A Yes Comments Patient c/o of some nausea a nd [place]. No bleeding. Good movement. Had MFM [...] Weight in lbs Pre/Post Dialysis Refused Weight 249.125498823389 BP Diastolic BP Location Tested BP Systolic [...] Weight in lbs Pre/Post Dialysis Refused Weight 247.607970795938 BP Diastolic BP Location Tested BP Systolic BP Type 77 122 Fetus Heart Rate Present Fetus Movement Comments Flowsheet Date 02/17/2024 Lewis Score Blood Edema Fundus Height Fundus Units Glucose Ketones Leukocytes Nitrite Labor Signs Protein Cervic Dilation Cervic Effacement Cervic Station none Type Weight in lbs Pre/Post Dialysis Refused Weight 247.430612234299 BP Diastolic BP Location Tested BP Systolic [...] Weight in lbs Pre/Post Dialysis Refused Weight 248.942868076571 BP Diastolic BP Location Tested BP Systolic [...] Type Weight in lbs Pre/Post Dialysis Refused 249.285737394368 BP Diastolic BP Location Tested BP Systolic [...] Weight in lbs Pre/Post Dialysis Refused Weight 248.034048639086 BP Diastolic BP Location Tested BP Systolic BP Type 74 L arm 118 sitting Fetus Heart Rate Present A 140 Fetus Movement A Yes Comments Good movement. No ctx, LOF, VB. Will move induction from 03/15 to 03/16 due to staffing issues at [place]. BPP 10/28 at [facility] Thursday, NST reactive today. Labor precautions reviewed. Menstrual History Last Menstrual Date Menses Monthly On Bcp Conception Prior Menses Frequency Hcg Plus Date Menarche Onset Age 0306/03/2023 Genetic Screening And Infection History Question Response Note Mental Retardation/Autism false Patient's Age Will Be 35 Years Or Older At Estim ated Date of Delivery false Thalassemia ([place], [place] Citizen, Mediterranean, Or Background): MCV < 80 false Neural Tube Defect (Meningomyelocele, Spina Bifi da, Or Anencephaly) false Congenital Heart Defect false Down Syndrome false Ben-Sachs (eg, Adventism, Cajun, Hungarian-Superior) f alse Juve Disease false Sickle Cell Disease Or Trait () false Hemophilia Or Other Blood Disorders false Muscular Dystrophy false Cystic Fibrosis false [place]'s Chorea false Intellectual Disability/Autism false If Yes, [...]
--- OUTSIDE RECORDS SUMMARY | 2024-03-25 06:51 | XMS_ITS | Continuity of Care Document ---
Author Organization [facility] [place] Address [address] [place] [address] Assessment No assessment recorded. Plan of Treatment [...] + non-stres s test 2023 024 [email or web address] [place], [address], [place], [address], 02/10/2024 21:16:39 Medication Orders None recorded. Patient TargetsNo targets recorded. Patient InstructionsNo instructions recorded. Reason for Referral None Reported. Results Created Date Observation Date Name Description Value Unit Range Abnormal Flag Note LastModifiedBy Organization Detail LastModifiedTime 09/08/1909/08/2023 US, obste tric, nucha l trans lucen cy No observ ation record ed. RENO [address], [place], [address], 09/10/2023 10:53:56 09/08/19 24 09/08/2023 US, obste tric, nucha l trans lucen cy No observ ation record ed. [email or web address] [place] [address], [place], [address], 09/08/2023 13:17:08 09/14/19 24 09/14/2023 US, obste tric, follo w-up No observ ation record ed. [email or web address] [facility] [address], [place], [address], 09/16/2023 14:33:23 09/14/19 24 09/14/2023 US, obste tric, trans abdom inal No observ ation record ed. [email or web address] [facility] [address], [place], [address], 09/15/2023 15:09:15 10/12/19 24 10/12/2023 US, obste tric No observ ation record ed. [email or web address] [facility] [address], [place], [address], 10/13/2023 16:44:42 11/09/19 24 11/09/2023 US, obste tric, follo w-up No observ ation record ed. [email or web address] [facility] [address], [place], [address], 11/10/2023 16:45:37 12/07/19 24 12/07/2023 imagi ng/di agnos tic resul t No observ ation record ed. [facility] [address], [place], [address], 12/11/2023 10:32:37 01/04/20 24 01/04/2024 imagi ng/di agnos tic resul t No observ ation record ed. [facility] [address], [place], [address], 01/07/2024 12:12:29 02/02/20 24 02/01/2024 US, obste tric, follo w-up No observ ation record ed. [email or web address] [facility] [address], [place], [address], 02/04/2024 10:30:16 02/10/20 24 02/10/2024 non-s tress test No observ ation record ed. [email or web address] [place] [address], [place], [address], 02/10/2024 11:58:14 02/10/20 24 02/10/2024 US, obste tric, bioph ysica l profi le + non-s tress test No observ ation record ed. [email or web address] [place] [address], [place], [address], 02/10/2024 12:45:48 02/10/20 24 02/10/2024 US, obste tric, bioph ysica l profi le + non-s tress test No observ ation record ed. [email or web address] [address], [place], [address], 02/10/2024 22:00:22 02/17/20 24 02/17/2024 US, obste tric, bioph ysica l profi le + non-s tress test No observ ation record ed. [email or web address] [place] [address], [place], [address], 02/17/2024 13:14:35 02/17/20 24 02/17/2024 US, obste tric, bioph ysica l profi le + non-s tress test No observ ation record ed. [email or web address] [address], [place], [address], 02/19/2024 01:03:22 02/17/20 24 02/17/2024 non-s tress test No observ ation record ed. [email or web address] [place] [address], [place], [address], 02/17/2024 18:46:39 02/17/20 non-s tress test No observ ation record ed. [email or web address] [place] [address], [place], [address], 02/17/2024 18:48:46 02/24/20 24 02/24/2024 US, obste tric, bioph ysica l profi le + non-s tress test No observ ation record ed. [facility] [address], [place], [address], 02/24/2024 14:24:08 02/24/20 24 02/24/2024 US, obste tric, follo w-up No observ ation record ed. [facility] [address], [place], [address], 02/24/2024 14:24:20 02/24/20 24 02/24/2024 US, obste tric, bioph ysica l profi le + non-s tress test No observ ation record ed. [email or web address] [address] [facility], [place], [address], 02/25/2024 11:50:17 02/24/20 24 02/24/2024 non-s tress test No observ ation record ed. [email or web address] [place] [address], [place], [address], 02/24/2024 12:00:12 03/01/20 24 02/29/2024 imagi ng/di agnos tic resul t No observ ation record ed. [facility] [address] [place] [address], [address], 03/01/2024 17:20:31 03/03/20 24 03/03/2024 US, obste tric, bioph ysica l profi le + non-s tress test No observ ation record ed. [email or web address] [place] [address], [place], [address], 03/03/2024 12:20:34 03/03/20 24 03/03/2024 US, obste tric, bioph ysica l profi le + non-s tress test No observ ation record ed. [email or web address] [address], [place], [address], 03/03/2024 20:54:47 03/03/20 24 03/03/2024 non-s tress test No observ ation record ed. [email or web address] [place] [address], [place], [address], 03/03/2024 14:58:50 03/08/20 24 03/07/2024 imagi ng/di agnos tic resul t No observ ation record ed. [facility] [address], [address], 03/09/2024 00:46:18 03/09/20 24 03/09/2024 non-s tress test No observ ation record ed. [email or web address] [place] [address], [place], [address], 03/09/2024 11:26:46 03/14/20 24 03/14/2024 imagi ng/di agnos tic resul t No observ ation record ed. [facility] [address], [address], 03/14/2024 13:30:26 03/17/20 24 03/14/2024 US, obste tric, follo w-up No observ ation record ed. [email or web address] [facility] [address] [place] [address], [address], 03/20/2024 15:27:00 Result Notes None recorded. Problems Name Problem SNOMED Code Status Onset Date Resolution Date Notes Provider Name and Address Organization Details Recorded Time 00928747 Active 2023 Jennie Grossman [facility], [facility] 4 12:13:08 Monosomy X 953941965 Active HR on NIPT, declined CVS/amnio centesis HEIDI COLON MD [address], [place], [address], [facility] 4 12:18:50 Monosomy X 091354784 Active HR on NIPT, declined CVS/amnio centesis HEIDI COLON MD [address], [place], [address], [facility] 4 12:18:50 Body mass index 40+ - severely obese 039848898 Active weekly testing @34wks Jillian Morin [facility] 4 15:45:52 Problem Notes None recorded. Procedures Surgical History None recorded. Imaging Results Imaging Date Name Status LastModified by Organiz ation Details LastModified Time 02/10/2024 US, obstetric, biophysical profile + non-stress test completed [email or web address] [place] [address], [place], [address], 02/10/2024 12:45:48 02/10/2024 US, obstetric, biophysical profile + non-stress test completed [email or web address] [address], [place], [address], 02/10/2024 22:00:22 Procedure Notes None recorded. Medical [...] 4 162.56 cm 99.28 % 42.7 kg/m2 460470. 5 g 121 mm[Hg] 76 mm[Hg] Tammie Haddad [facility] 4 12:19:44 Social History Question Answer Notes LastModified by Organizat ion Details LastModified Time Tobacco Smoking Status Never Smoker Susana Dove alyssa, [facility] 2023 15:08:14 What Is Your [...] Or The Highest Degree You Have Received? [id number] Information not available 2023 Are There Any [...] Anxious, Or Unable To Sleep At Night)? [id number] Information not available 2023 Do You Use [...] you able to care for yourself? Yes [email or web address] Information not available 01/06/2024 Do you have difficulty dressing or bathing? No [email or web address] Information not available 01/06/2024 What is your [...] Diagnosis/Indication Diagnosis SNOMED-CT Code Diagnosis ICD10 Code 563974 HEIDI COLON MD [place] [address],[place] [address] 01/20/2024 11:06:31 01/20/2024 12:07:38 Anemia of 38743580 O99.019 Maternal o besity complicating , childbirth and the puerperium, antepartum 9236073716 07 O99.212 Gestation period, 31 weeks 99569408 Z3A.31 [id number] HEIDI COLON MD [place] [address],[place] [address] 02/03/2024 10:35:23 02/03/2024 11:50:26 Nausea and vomiting 48964823 R11.2 Gestation period, 33 weeks 69224765 Z3A.33 Monosomy X 127762400 Q96 .9 [id number] [facility] [address],[place] [address] 02/10/2024 11:07:14 02/10/2024 12:40:48 Gestation period, 34 weeks 58125900 Z3A.34 Monosomy X 449463369 Q96 .9 [id number] Corin Christina [place] [address],[place] [address] 02/10/2024 11:06:55 02/10/2024 12:05:49 Maternal obesity complicating , childbirth and the puerperium, antepartum 5569436772 07 O99.215 [id number] Tyra Miller [place] [address] [address] 02/10/2024 11:17:13 02/10/2024 12:10:38 Maternal obesity complicating , childbirth and the puerperium, antepartum 0220526855 07 O99.213 Z3A.34 Health Concerns Section Related Observation LastModified by Organization Detai ls LastModified Time None Recorded Concern Status LastModified by Organization Details LastModified Time None Recorded Payers Encounter Date Sequence Insurance Name Policy Number Policy Kraus Covered Member ID Kraus Member ID Guarantor Name 02/10/2024 1 [facility] (MEDICAID HMO) [id number] Loulou Chang [id number] Dudley Natarajan OBGyn Episode Ob Episode Information Episode Created Date Number of Fetuses Patient Bloodtype Patient rh Status Prepregnancy Weight lbs Domestic Partner Domestic Partner Phone Father Name Security Intelligence Analyst Status 09/08/19 24 1 O Positive 244.2 OPEN Fetus Data First Name Last Name Admitted to NICU Weight (g) Sex Living Outcome Pediatric Complications Fetus ID Race Codes Race Delivery Type [id number] Problems Problem Notes MFM: 09/13 with genetic couns elor & EXTERIOR INTERIOR SPECIALIST ultrasound, declined CVS10/11 @945 US & 11/08 945 US [facility] Problem Name Start Date End Date Resolution Snomed Code Not e Body mass index 40+ - severely obese 447338733 weekly testin g @34wks Monosomy X 318885227 HR on NIP T, declined CVS/amniocentesis Angus [...] Date Ultra Sound Latest Days Gestation 0 [email or web address] 09/08/2023 03/22/20 24 0 Pre- Flowsheet Flowsheet [...] Weight in lbs Pre/Post Dialysis Refused Weight 237.090800427916 BP Diastolic BP Location Tested BP Systolic BP Type 66 100 Fetus Heart Rate Present A 165 Fetus Movement Comments Patient presents to [facility] care. Nausea improved, no bleeding or cramping. complicated by high risk NIPT for monosomy X. Referral sent to [facility]. Discussed amniocentesis for diagnostic testing. Discussed risks of monosomy X. NT/NB wnl today. Other OB labs wnl. RTC 4 weeks, will follow up MFM referral. Flowsheet Date 10/07/2023 Lewis Score Blood Edema Fundus Height Fundus Units Glucose Ketones Leukocytes Nitrite Labor Signs Protein Cervic Dilation Cervic Effacement Cervic Station Type Weight in lbs Pre/Post Dialysis Refused Weight 236.631518247311 BP Diastolic BP Location Tested BP Systolic BP Type 72 116 Fetus Heart Rate Present A 160 Fetus Movement A No Comments Doing well, no movemen t yet. No cramping, bleeding or nausea. Saw MFM for HR Monosomy X on NIPT, declined CVS/amnio. Has follow up visit with them on Thursday. Discussed anatomy US with [facility], otherwise normal care in 4 weeks. Flowsheet Date 11/10/2023 Lewis Score Blood Edema Fundus Height Fundus Units Glucose Ketones Leukocytes Nitrite Labor Signs Protein Cervic Dilation Cervic Effacement Cervic Station Type Weight in lbs Pre/Post Dialysis Refused Weight 237.388227619839 BP Diastolic BP Location Tested BP Systolic BP Type 61 108 Fetus Heart Rate Present A 145 Fetus Movement A Yes Comments Baby moving well. Had anatom y US with [facility] yesterday, incomplete but normal visualized anatomy. Repeat in 4 weeks with M. No cramping or bleeding. RTC 4 weeks. Flowsheet Date 12/09/2023 Lewis Score Blood Edema Fundus Height Fundus Units Glucose Ketones Leukocytes Nitrite Labor Signs Protein Cervic Dilation Cervic Effacement Cervic Station neg none trace Type Weight in lbs Pre/Post Dialysis Refused 238.390609786630 BP Diastolic BP Location Tested BP Systolic [...] Type Weight in lbs Pre/Post Dialysis Refused 243.053248724672 BP Diastolic BP Location Tested BP Systolic BP Type 76 L arm 122 sitting Fetus Heart Rate Present Fetus Movement A Yes Comments Good movement. No cram ping or bleeding. Repeat growth with MFM, EFW 75%. Continue serial growth US per [facility]. GCT and labs today. Discussed tdap vaccine. Desires EIL on 03/15 as partner is going to basic training for the army. Discussed SP infusion rn, patient will make appointmetns with her to meet and discuss EIL. RTC 2 weeks. Flowsheet Date 01/20/2024 Lewis Score Blood Edema Fundus Height Fundus Units Glucose Ketones Leukocytes Nitrite Labor Signs Protein Cervic Dilation Cervic Effacement Cervic Station neg none none trace Type Weight in lbs Pre/Post Dialysis Refused Weight 246.369695161246 BP Diastolic BP Location Tested BP Systolic BP Type 74 L arm 110 sitting Fetus Heart Rate Present A 145 Fetus Movement A Yes Comments Good movement, no cram ping or bleeding. Discussed RSV vaccine, info given. Will plan for EIl on 03/15 with SP. [facility] appointment mid January. Discussed anemia, will start Fe supplement. REcheck at 34 weeks. RTC 2 weeks Flowsheet Date 02/03/2024 Lewis Score Blood Edema Fundus Height Fundus Units Glucose Ketones Leukocytes Nitrite Labor Signs Protein Cervic Dilation Cervic Effacement Cervic Station neg none none trace Type Weight in lbs Pre/Post Dialysis Refused Weight 246.972332727931 BP Diastolic BP Location Tested BP Systolic [...] Weight in lbs Pre/Post Dialysis Refused Weight 249.061118330784 BP Diastolic BP Location Tested BP Systolic [...] Weight in lbs Pre/Post Dialysis Refused Weight 247.170514495073 BP Diastolic BP Location Tested BP Systolic BP Type 77 122 Fetus Heart Rate Present Fetus Movement Comments Flowsheet Date 02/17/2024 Lewis Score Blood Edema Fundus Height Fundus Units Glucose Ketones Leukocytes Nitrite Labor Signs Protein Cervic Dilation Cervic Effacement Cervic Station none Type Weight in lbs Pre/Post Dialysis Refused Weight 247.268527330736 BP Diastolic BP Location Tested BP Systolic [...] Weight in lbs Pre/Post Dialysis Refused Weight 248.046965447659 BP Diastolic BP Location Tested BP Systolic [...] Type Weight in lbs Pre/Post Dialysis Refused 249.649223960919 BP Diastolic BP Location Tested BP Systolic [...] Weight in lbs Pre/Post Dialysis Refused Weight 248.082837605811 BP Diastolic BP Location Tested BP Systolic BP Type 74 L arm 118 sitting Fetus Heart Rate Present A 140 Fetus Movement A Yes Comments Good movement. No ctx, LOF, VB. Will move induction from 03/15 to 03/16 due to staffing issues at [place]. BPP 8/8 at [facility] Thursday, NST reactive today. Labor precautions reviewed. Menstrual History Last Menstrual Date Menses Monthly On Bcp Conception Prior Menses Frequency Hcg Plus Date Menarche Onset Age 0306/03/2023 Genetic Screening And Infection History Question Response Note Mental Retardation/Autism false Patient's Age Will Be 35 Years Or Older At Estim ated Date of Delivery false Thalassemia (Chinese, Arabic, Mediterranean, Or Background): MCV < 80 false Neural Tube Defect (Meningomyelocele, Spina Bifi da, Or Anencephaly) false Congenital Heart Defect false Down Syndrome false Ben-Sachs (eg, Sikhism, Cajun, Gambian-Indian) f alse Juve Disease false Sickle Cell Disease Or Trait () false Hemophilia Or Other Blood Disorders false Muscular Dystrophy false Cystic Fibrosis false [place]'s Chorea false Intellectual Disability/Autism false If Yes, [...]
--- OUTSIDE RECORDS SUMMARY | 2024-03-25 06:51 | XMS_ITS | Continuity of Care Document ---
Author Organization [facility] [place] Address [address] [place] [address] Assessment No assessment recorded. Plan of Treatment [...] (65 mg iron) tablet,de layed release 2023 [id number], [address], [phone], 01/20/2024 12:04:54 Gummies 400 mcg-35 mg-25 mg-5 mg chewable tablet 2023 [facility][id number], [address], [place], [phone], 01/20/2024 12:04:44 Patient TargetsNo targets recorded. Patient InstructionsNo instructions recorded. Reason for Referral None Reported. Results Created Date Observation Date Name Description Value Unit Range Abnormal Flag Note LastModifiedBy Organization Detail LastModifiedTime 09/08/1909/08/2023 US, obste tric, nucha l trans lucen cy No observ ation record ed. RENO [address], [place], [address], 09/10/2023 10:53:56 09/08/1909/08/2023 US, obste tric, nucha l trans lucen cy No observ ation record ed. [email or web address] [place] [address], [place], [address], 09/08/2023 13:17:08 09/14/19 24 09/14/2023 US, obste tric, follo w-up No observ ation record ed. [email or web address] [facility] [address], [place], [address], 09/16/2023 14:33:23 09/14/19 24 09/14/2023 US, obste tric, trans abdom inal No observ ation record ed. [place] [address] [facility] [address], [place], [address], 09/15/2023 15:09:15 10/12/19 24 10/12/2023 US, obste tric No observ ation record ed. [place] [address] [facility] [address], [place], [address], 10/13/2023 16:44:42 11/09/19 24 11/09/2023 US, obste tric, follo w-up No observ ation record ed. [email or web address] [facility] [address], [place], [address], 11/10/2023 16:45:37 12/07/19 24 12/07/2023 imagi ng/di agnos tic resul t No observ ation record ed. [facility] [address], [place], [address], 12/11/2023 10:32:37 01/04/20 24 01/04/2024 imagi ng/di agnos tic resul t No observ ation record ed. [facility] [address], [place], [address], 01/07/2024 12:12:29 02/02/20 24 02/01/2024 US, obste tric, follo w-up No observ ation record ed. [facility] [address] , [place], [address], 02/04/2024 10:30:16 02/10/20 24 02/10/2024 non-s tress test No observ ation record ed. [email or web address] [place] [address], [place], [address], 02/10/2024 11:58:14 02/10/20 24 02/10/2024 US, obste tric, bioph ysica l profi le + non-s tress test No observ ation record ed. [email or web address] [place] [address], [place], [address], 02/10/2024 12:45:48 02/10/20 24 02/10/2024 US, obste tric, bioph ysica l profi le + non-s tress test No observ ation record ed. [email or web address] Melanie [address], [place], [address], 02/10/2024 22:00:22 02/17/20 24 02/17/2024 US, obste tric, bioph ysica l profi le + non-s tress test No observ ation record ed. [email or web address] [place] [address], [place], [address], 02/17/2024 13:14:35 02/17/20 24 02/17/2024 US, obste tric, bioph ysica l profi le + non-s tress test No observ ation record ed. [email or web address] Mel[address], [place], [address], 02/19/2024 01:03:22 02/17/20 24 02/17/2024 non-s tress test No observ ation record ed. [email or web address] [place] [address], [place], [address], 02/17/2024 18:46:39 02/17/20 non-s tress test No observ ation record ed. [email or web address] [place] [address], [place], [address], 02/17/2024 18:48:46 02/24/2002/24/2024 US, obste tric, bioph ysica l profi le + non-s tress test No observ ation record ed. [facility] [address], [place], [address], 02/24/2024 14:24:08 02/24/20 24 02/24/2024 US, obste tric, follo w-up No observ ation record ed. [facility] [address], [place], [address], 02/24/2024 14:24:20 02/24/20 24 02/24/2024 US, obstnelly tric, bioph ysica l profi le + non-s tress test No observ ation record ed. [email or web address] [address] [facility], [place], [address], 02/25/2024 11:50:17 02/24/20 24 02/24/2024 non-s tress test No observ ation record ed. [email or web address] [place] [address], [place], [address], 02/24/2024 12:00:12 03/01/20 24 02/29/2024 imagi ng/di agnos tic resul t No observ ation record ed. [facility] [place] [address] [place], [address], 03/01/2024 17:20:31 03/03/20 24 03/03/2024 US, obste tric, bioph ysica l profi le + non-s tress test No observ ation record ed. [email or web address] [place] [address], [place], [address], 03/03/2024 12:20:34 03/03/20 24 03/03/2024 US, obste tric, bioph ysica l profi le + non-s tress test No observ ation record ed. [email or web address] Mel[address], [place], [address], 03/03/2024 20:54:47 03/03/20 24 03/03/2024 non-s tress test No observ ation record ed. [email or web address] [place] [address], [place], [address], 03/03/2024 14:58:50 03/08/20 24 03/07/2024 imagi ng/di agnos tic resul t No observ ation record ed. [facility] [address], [address], 03/09/2024 00:46:18 03/09/20 24 03/09/2024 non-s tress test No observ ation record ed. [email or web address] [place] [address], [place], [address], 03/09/2024 11:26:46 03/14/20 24 03/14/2024 imagi ng/di agnos tic resul t No observ ation record ed. [facility] [address], [address], 03/14/2024 13:30:26 03/17/20 24 03/14/2024 US, obste tric, follo w-up No observ ation record ed. [facility] [address] [place], [address], 03/20/2024 15:27:00 Result Notes None recorded. Problems Name Problem SNOMED Code Status Onset Date Resolution Date Notes Provider Name and Address Organization Details Recorded Time 36568339 Active 2023 Jennie Grossman [facility] 4 12:13:08 Monosomy X 545592960 Active HR on NIPT, declined CVS/amnio centesis HEIDI COLON MD [address], [place], [address], [facility] 4 12:18:50 Monosomy X 055089592 Active HR on NIPT, declined CVS/amnio centesis HEIDI COLON MD [address], [place], [address], [facility] 4 12:18:50 Body mass index 40+ - severely obese 824656790 Active weekly testing @34wks Jillian Mikel [facility] 4 15:45:52 Problem Notes None [...] 4 162.56 cm 42.2 kg/m2 99.2 % 251849. 72 g 110 mm[Hg] 74 mm[Hg] Maude Peterson [facility] 11:19:14 Social History Question Answer Notes LastModified by Organizat ion Details LastModified Time Tobacco Smoking Status Never Smoker Susana Dove null, [facility] 2023 15:08:14 What Is Your [...] Or The Highest Degree You Have Received? [id number] Information not available 2023 Are There Any [...] Anxious, Or Unable To Sleep At Night)? [id number] Information not available 2023 Do You Use Any Illicit Or Recreational Drugs? No Information not available 2023 Do You Use Sunscreen Routinely? No Information not available 2023 Have You Used IV Drugs? No Information not available 2023 Sex: Unknown Functional Status Question Answer Note LastModified by Organizat ion Details LastModified Time Do you have difficulty walking or climbing stairs? No [email or web address] Information not available 01/06/2024 Are you able to walk? YESWOREST Information not available 2023 Are you able to care for yourself? Yes [email or web address] Information not available 01/06/2024 Do you have difficulty dressing or bathing? No [email or web address] Information not available 01/06/2024 What is your [...] Diagnosis/Indication Diagnosis SNOMED-CT Code Diagnosis ICD10 Code 619793 HEIDI COLON MD [place] [address] [address] 01/06/2024 14:02:28 01/06/2024 14:43:21 Monosomy X 138076159 Q96.9 Maternal o besity complicating , childbirth and the puerperium, antepartum 4503646860 07 O99.212 Gestation period, 29 weeks 41082491 Z3A.29 [id number] HEIDI COLON MD [place] [address],[facility] [place] [address] 01/20/2024 11:06:31 01/20/2024 12:07:38 Anemia of 66109003 O99.019 Maternal o besity complicating , childbirth and the puerperium, antepartum 6683710346 07 O99.212 Gestation period, 31 weeks 90669503 Z3A.31 Health Concerns Section Related Observation LastModified by Organization Detai ls LastModified Time None Recorded Concern Status LastModified by Organization Details LastModified Time None Recorded Payers Encounter Date Sequence Insurance Name Policy Number Policy Kraus Covered Member ID Kraus Member ID Guarantor Name 01/20/2024 1 [employer] (MEDICAID HMO) [id number] Loulou Chang [id number] Dudley Natarajan OBGyn Episode Ob Episode Information Episode Created Date Number of Fetuses Patient Bloodtype Patient rh Status Prepregnancy Weight lbs Domestic Partner Domestic Partner Phone Father Name Radiographer Mammographer Status 09/08/19 24 1 O Positive 244.2 OPEN Fetus Data First Name Last Name Admitted to NICU Weight (g) Sex Living Outcome Pediatric Complications Fetus ID Race Codes Race Delivery Type [id number] Problems Problem Notes MFM: 09/13 with genetic couns elor & RADIO INTELLIGENCE OPERATOR ultrasound, declined [facility]S10/11 @945 US & 11/08 945 US [facility] Problem Name Start Date End Date Resolution Snomed Code Not e Body mass index 40+ - severely obese 994519984 weekly testin g @34wks Monosomy X 786750049 HR on NIP T, declined CVS/amniocentesis Angus [...] Date Ultra Sound Latest Days Gestation 0 [email or web address] 09/08/2023 03/22/20 24 0 Pre- Flowsheet Flowsheet [...] Weight in lbs Pre/Post Dialysis Refused Weight 237.685535472249 BP Diastolic BP Location Tested BP Systolic BP Type 66 100 Fetus Heart Rate Present A 165 Fetus Movement Comments Patient presents to [facility] care. Nausea improved, no bleeding or cramping. complicated by high risk NIPT for monosomy X. Referral sent to [facility]. Discussed amniocentesis for diagnostic testing. Discussed risks of monosomy X. NT/NB wnl today. Other OB labs wnl. RTC 4 weeks, will follow up [facility] referral. Flowsheet Date 10/07/2023 Lewis Score Blood Edema Fundus Height Fundus Units Glucose Ketones Leukocytes Nitrite Labor Signs Protein Cervic Dilation Cervic Effacement Cervic Station Type Weight in lbs Pre/Post Dialysis Refused Weight 236.256758851486 BP Diastolic BP Location Tested BP Systolic BP Type 72 116 Fetus Heart Rate Present A 160 Fetus Movement A No Comments Doing well, no movemen t yet. No cramping, bleeding or nausea. Saw MFM for HR Monosomy X on NIPT, declined CVS/amnio. Has follow up visit with them on Thursday. Discussed anatomy US with [facility], otherwise normal care in 4 weeks. Flowsheet Date 11/10/2023 Lewis Score Blood Edema Fundus Height Fundus Units Glucose Ketones Leukocytes Nitrite Labor Signs Protein Cervic Dilation Cervic Effacement Cervic Station Type Weight in lbs Pre/Post Dialysis Refused Weight 237.472825538513 BP Diastolic BP Location Tested BP Systolic BP Type 61 108 Fetus Heart Rate Present A 145 Fetus Movement A Yes Comments Baby moving well. Had anatom y US with [facility] yesterday, incomplete but normal visualized anatomy. Repeat in 4 weeks with [facility]. No cramping or bleeding. RTC 4 weeks. Flowsheet Date 12/09/2023 Lewis Score Blood Edema Fundus Height Fundus Units Glucose Ketones Leukocytes Nitrite Labor Signs Protein Cervic Dilation Cervic Effacement Cervic Station neg none trace Type Weight in lbs Pre/Post Dialysis Refused 238.836899450593 BP Diastolic BP Location Tested BP Systolic BP Type 75 L arm 111 sitting Fetus Heart Rate Present A 150 Fetus Movement A Yes Comments Pateint c/o of lower back pa in and lower pelvic pain. Discussed tylenol, ice/hot packs, and belly band. Good movement. Had repeat anatomy with [facility], all normal; EFW 90%, growth US scheduled for 4 weeks with [facility]. Discussed GCT and labs for next visit. RTC 3-4 weeks. Flowsheet Date 01/06/2024 Lewis Score Blood Edema Fundus Height Fundus Units Glucose Ketones Leukocytes Nitrite Labor Signs Protein Cervic Dilation Cervic Effacement Cervic Station neg none none trace Type Weight in lbs Pre/Post Dialysis Refused 243.630482245080 BP Diastolic BP Location Tested BP Systolic BP Type 76 L arm 122 sitting Fetus Heart Rate Present Fetus Movement A Yes Comments Good movement. No cram ping or bleeding. Repeat growth with MFM, EFW 75%. Continue serial growth US per [facility]. GCT and labs today. Discussed tdap vaccine. Desires EIL on 03/15 as partner is going to basic training for the [employer]. Discussed SP public relations supervisor, patient will make appointmetns with her to meet and discuss EIL. RTC 2 weeks. Flowsheet Date 01/20/2024 Lewis Score Blood Edema Fundus Height Fundus Units Glucose Ketones Leukocytes Nitrite Labor Signs Protein Cervic Dilation Cervic Effacement Cervic Station neg none none trace Type Weight in lbs Pre/Post Dialysis Refused Weight 246.901163497061 BP Diastolic BP Location Tested BP Systolic [...] Weight in lbs Pre/Post Dialysis Refused Weight 246.130425283385 BP Diastolic BP Location Tested BP Systolic BP Type 66 L arm 118 sitting Fetus Heart Rate Present Fetus Movement A Yes Comments Patient c/o of some nausea a nd Hart Reyes. No bleeding. Good movement. Had MFM [...] Weight in lbs Pre/Post Dialysis Refused Weight 249.242742265080 BP Diastolic BP Location Tested BP Systolic [...] Weight in lbs Pre/Post Dialysis Refused Weight 247.746589151696 BP Diastolic BP Location Tested BP Systolic BP Type 77 122 Fetus Heart Rate Present Fetus Movement Comments Flowsheet Date 02/17/2024 Lewis Score Blood Edema Fundus Height Fundus Units Glucose Ketones Leukocytes Nitrite Labor Signs Protein Cervic Dilation Cervic Effacement Cervic Station none Type Weight in lbs Pre/Post Dialysis Refused Weight 247.526492926209 BP Diastolic BP Location Tested BP Systolic [...] Weight in lbs Pre/Post Dialysis Refused Weight 248.427582349214 BP Diastolic BP Location Tested BP Systolic [...] Type Weight in lbs Pre/Post Dialysis Refused 249.626186721983 BP Diastolic BP Location Tested BP Systolic [...] Weight in lbs Pre/Post Dialysis Refused Weight 248.206250888169 BP Diastolic BP Location Tested BP Systolic BP Type 74 L arm 118 sitting Fetus Heart Rate Present A 140 Fetus Movement A Yes Comments Good movement. No ctx, LOF, VB. Will move induction from 03/15 to 03/16 due to staffing issues at [facility]. BPP 10/28 at [facility] Thursday, NST reactive today. Labor precautions reviewed. Menstrual History Last Menstrual Date Menses Monthly On Bcp Conception Prior Menses Frequency Hcg Plus Date Menarche Onset Age 0306/03/2023 Genetic Screening And Infection History Question Response Note Mental Retardation/Autism false Patient's Age Will Be 35 Years Or Older At Estim ated Date of Delivery false Thalassemia (Iranian, Maltese, Mediterranean, Or Background): MCV < 80 false Neural Tube Defect (Meningomyelocele, Spina Bifi da, Or Anencephaly) false Congenital Heart Defect false Down Syndrome false Ben-Sachs (eg, Moravian, Cajun, [place]arian-[place]) f alse Juve Disease false Sickle Cell Disease Or Trait () false Hemophilia Or Other Blood Disorders false Muscular Dystrophy false Cystic Fibrosis false [place]'s Chorea false Intellectual Disability/Autism false If Yes, [...]
--- OUTSIDE RECORDS SUMMARY | 2024-03-25 06:51 | XMS_ITS | Continuity of Care Document ---
Author Organization [facility] [place] [place] [place] Address [address] [place] [address] Assessment No assessment recorded. Plan of Treatment [...] observ ation record ed. RENO [address], [facility], [place], [address], 09/10/2023 10:53:56 09/08/19 24 09/08/2023 US, obste tric, nucha l trans lucen cy No observ ation record ed. [email or web address] [place] [address], [place], [address], 09/08/2023 13:17:08 09/14/19 24 09/14/2023 US, obste tric, follo w-up No observ ation record ed. [email or web address] [facility] [place][note 2] [facility] [address], [place], [address], 09/16/2023 14:33:23 06/24/20 24 09/14/2023 US, obste tric, trans abdom inal No observ ation record ed. [facility] [address] [facility] [address], [place], [address], 09/15/2023 15:09:15 10/12/19 24 10/12/2023 US, obste tric No observ ation record ed. [email or web address] [facility] [address] [facility] [address], [place], [address], 10/13/2023 16:44:42 11/09/19 24 11/09/2023 US, obste tric, follo w-up No observ ation record ed. [email or web address] [facility] [address] [facility] [address], [place], [address], 11/10/2023 16:45:37 12/07/19 24 12/07/2023 imagi ng/di agnos tic resul t No observ ation record ed. [facility] [address] [facility] [address], [place], [address], 12/11/2023 10:32:37 01/04/20 24 01/04/2024 imagi ng/di agnos tic resul t No observ ation record ed. [facility] [address] [facility] [address], [place], [address], 01/07/2024 12:12:29 02/02/20 24 02/01/2024 US, obste tric, follo w-up No observ ation record ed. [email or web address] [facility] [address] [facility] [place], [address], 02/04/2024 10:30:16 02/10/20 24 02/10/2024 non-s tress test No observ ation record ed. [email or web address] [place] [address], [place], [address], 02/10/2024 11:58:14 02/10/20 24 02/10/2024 US, obste tric, bioph ysica l profi le + non-s tress test No observ ation record ed. [email or web address] [place] [address], [place], [address], 02/10/2024 12:45:48 02/10/20 24 02/10/2024 US, obste tric, bioph ysica l profi le + non-s tress test No observ ation record ed. [email or web address] [address], [place], [address], 02/10/2024 22:00:22 02/17/20 24 02/17/2024 US, obste tric, bioph ysica l profi le + non-s tress test No observ ation record ed. [email or web address] [place] [address], [place], [address], 02/17/2024 13:14:35 02/17/20 24 02/17/2024 US, obste tric, bioph ysica l profi le + non-s tress test No observ ation record ed. [email or web address] [address], [place], [address], 02/19/2024 01:03:22 02/17/20 24 02/17/2024 non-s tress test No observ ation record ed. [email or web address] [place] [address], [place], [address], 02/17/2024 18:46:39 02/17/20 non-s tress test No observ ation record ed. [place] [address], [place], [address], 02/17/2024 18:48:46 02/24/20 24 02/24/2024 US, obste tric, bioph ysica l profi le + non-s tress test No observ ation record ed. [facility] [address], [place], [address], 02/24/2024 14:24:08 02/24/20 24 02/24/2024 US, obste tric, follo w-up No observ ation record ed. [facility] [address], [place], [address], 02/24/2024 14:24:20 02/24/20 24 02/24/2024 US, obste tric, bioph ysica l profi le + non-s tress test No observ ation record ed. [address], [facility], [place], [address], 02/25/2024 11:50:17 02/24/20 24 02/24/2024 non-s tress test No observ ation record ed. [email or web address] [place] [address], [place], [address], 02/24/2024 12:00:12 03/01/20 24 02/29/2024 imagi ng/di agnos tic resul t No observ ation record ed. [facility] [address] [place] [address], [address], 03/01/2024 17:20:31 03/03/20 24 03/03/2024 US, obste tric, bioph ysica l profi le + non-s tress test No observ ation record ed. [email or web address] [place] [address], [place], [address], 03/03/2024 12:20:34 12/12/03/03/2024 US, obste tric, bioph ysica l profi le + non-s tress test No observ ation record ed. [email or web address] [address], [place], [address], 03/03/2024 20:54:47 03/03/20 24 03/03/2024 non-s tress test No observ ation record ed. [place] [address], [place], [address], 03/03/2024 14:58:50 03/08/20 24 03/07/2024 imagi ng/di agnos tic resul t No observ ation record ed. [facility] [address], [address], 03/09/2024 00:46:18 03/09/20 24 03/09/2024 non-s tress test No observ ation record ed. [email or web address] [place] [address], [place], [address], 03/09/2024 11:26:46 03/14/20 24 03/14/2024 imagi ng/di agnos tic resul t No observ ation record ed. [facility] [address], [address], 03/14/2024 13:30:26 03/17/20 24 03/14/2024 US, obste tric, follo w-up No observ ation record ed. [email or web address] [facility] [address], [address], 03/20/2024 15:27:00 Result Notes None recorded. Problems Name Problem SNOMED Code Status Onset Date Resolution Date Notes Provider Name and Address Organization Details Recorded Time 48217910 Active 2023 Jennie shah [place] - [facility] 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 4 12:18:50 Monosomy X 326339307 Active HR on NIPT, declined CVS/amnio centesis HEIDI COLON MD [address], [place], [address], [facility] 4 12:18:50 Body mass index 40+ - severely obese 174238987 Active weekly testing @34wks Jillian shah, [facility] 4 15:45:52 Problem Notes None [...] 4 162.56 cm 41.7 kg/m2 99.13 % 247871. 94639 g 122 mm[Hg] 76 mm[Hg] Maude Peterson [facility] 14:22:39 Social History Question Answer Notes LastModified by Organizat ion Details LastModified Time Tobacco Smoking Status Never Smoker Susana shah [facility] 2023 15:08:14 What Is Your [...] Or The Highest Degree You Have Received? [id number] Information not available 2023 Are There Any [...] Anxious, Or Unable To Sleep At Night)? [id number] Information not available 2023 Do You Use Any Illicit Or Recreational Drugs? No Information not available 2023 Do You Use Sunscreen Routinely? No Information not available 2023 Have You Used IV Drugs? No Information not available 2023 Sex: Unknown Functional Status Question Answer Note LastModified by Organizat ion Details LastModified Time Do you have difficulty walking or climbing stairs? No [email or web address] Information not available 01/06/2024 Are you able to walk? YESWOREST Information not available 2023 Are you able to care for yourself? Yes [email or web address] Information not available 01/06/2024 Do you have difficulty dressing or bathing? No [email or web address] Information not available 01/06/2024 What is your [...] Diagnosis/Indication Diagnosis SNOMED-CT Code Diagnosis ICD10 Code [id number] HEIDI COLON MD [place] [address] [address] 12/09/2023 11:44:14 12/09/2023 12:19:50 Monosomy X 207083070 Q96.9 Gestation period, 25 weeks 92399959 Z3A.25 [id number] HEIDI COLON MD [place] [address] [address] 01/06/2024 14:02:28 01/06/2024 14:43:21 Monosomy X 002393993 Q96.9 Maternal o besity complicating , childbirth and the puerperium, antepartum 9574224269 07 O99.212 Gestation period, 29 weeks 62143599 Z3A.29 Health Concerns Section Related Observation LastModified by Organization Detai ls LastModified Time None Recorded Concern Status LastModified by Organization Details LastModified Time None Recorded Payers Encounter Date Sequence Insurance Name Policy Number Policy Kraus Covered Member ID Kraus Member ID Guarantor Name 01/06/2024 1 [facility] (MEDICAID HMO) [id number] Loulou Chang [id number] Dudley Natarajan OBGyn Episode Ob Episode Information Episode Created Date Number of Fetuses Patient Bloodtype Patient rh Status Prepregnancy Weight lbs Domestic Partner Domestic Partner Phone Father Name Industrial Design Engineer Status 09/08/19 24 1 O Positive 244.2 OPEN Fetus Data First Name Last Name Admitted to NICU Weight (g) Sex Living Outcome Pediatric Complications Fetus ID Race Codes Race Delivery Type [id number] Problems Problem Notes MFM: 09/13 with genetic couns elor & OWNER/OPERATOR ultrasound, declined CVS10/11 @945 US & 11/08 945 US [facility] Problem Name Start Date End Date Resolution Snomed Code Not e Body mass index 40+ - severely obese 174991009 weekly testin g @34wks Monosomy X 920528124 HR on NIP T, declined CVS/amniocentesis Angus [...] Date Ultra Sound Latest Days Gestation 0 [email or web address] 09/08/2023 03/22/20 24 0 Pre-jerri Flowsheet Flowsheet [...] Weight in lbs Pre/Post Dialysis Refused Weight 237.316381555136 BP Diastolic BP Location Tested BP Systolic BP Type 66 100 Fetus Heart Rate Present A 165 Fetus Movement Comments Patient presents to [facility]. Nausea improved, no bleeding or cramping. complicated by high risk NIPT for monosomy X. Referral sent to [facility]. Discussed amniocentesis for diagnostic testing. Discussed risks of monosomy X. NT/NB wnl today. Other OB labs wnl. RTC 4 weeks, will follow up [facility] referral. Flowsheet Date 10/07/2023 Lewis Score Blood Edema Fundus Height Fundus Units Glucose Ketones Leukocytes Nitrite Labor Signs Protein Cervic Dilation Cervic Effacement Cervic Station Type Weight in lbs Pre/Post Dialysis Refused Weight 236.694486344692 BP Diastolic BP Location Tested BP Systolic BP Type 72 116 Fetus Heart Rate Present A 160 Fetus Movement A No Comments Doing well, no movemen t yet. No cramping, bleeding or nausea. Saw [facility] for HR Monosomy X on NIPT, declined CVS/amnio. Has follow up visit with them on Thursday. Discussed anatomy US with [facility], otherwise normal care in 4 weeks. Flowsheet Date 11/10/2023 Lewis Score Blood Edema Fundus Height Fundus Units Glucose Ketones Leukocytes Nitrite Labor Signs Protein Cervic Dilation Cervic Effacement Cervic Station Type Weight in lbs Pre/Post Dialysis Refused Weight 237.187494012444 BP Diastolic BP Location Tested BP Systolic BP Type 61 108 Fetus Heart Rate Present A 145 Fetus Movement A Yes Comments Baby moving well. Had anatom y US with [facility] yesterday, incomplete but normal visualized anatomy. Repeat in 4 weeks with MFM. No cramping or bleeding. RTC 4 weeks. Flowsheet Date 12/09/2023 Lewis Score Blood Edema Fundus Height Fundus Units Glucose Ketones Leukocytes Nitrite Labor Signs Protein Cervic Dilation Cervic Effacement Cervic Station neg none trace Type Weight in lbs Pre/Post Dialysis Refused 238.175367686947 BP Diastolic BP Location Tested BP Systolic BP Type 75 L arm 111 sitting Fetus Heart Rate Present A 150 Fetus Movement A Yes Comments Pateint c/o of lower back pa in and lower pelvic pain. Discussed tylenol, ice/hot packs, and belly band. Good movement. Had repeat anatomy with MFM, all normal; EFW 90%, growth US scheduled for 4 weeks with [facility]. Discussed GCT and labs for next visit. RTC 3-4 weeks. Flowsheet Date 01/06/2024 Lewis Score Blood Edema Fundus Height Fundus Units Glucose Ketones Leukocytes Nitrite Labor Signs Protein Cervic Dilation Cervic Effacement Cervic Station neg none none trace Type Weight in lbs Pre/Post Dialysis Refused 243.710777021996 BP Diastolic BP Location Tested BP Systolic BP Type 76 L arm 122 sitting Fetus Heart Rate Present Fetus Movement A Yes Comments Good movement. No cram ping or bleeding. Repeat growth with MF, EFW 75%. Continue serial growth US per [facility]. GCT and labs today. Discussed tdap vaccine. Desires EIL on 03/15 as partner is going to basic training for the army. Discussed SP salesperson furs, patient will make appointmetns with her to meet and discuss EIL. RTC 2 weeks. Flowsheet Date 01/20/2024 Lewis Score Blood Edema Fundus Height Fundus Units Glucose Ketones Leukocytes Nitrite Labor Signs Protein Cervic Dilation Cervic Effacement Cervic Station neg none none trace Type Weight in lbs Pre/Post Dialysis Refused Weight 246.591826545189 BP Diastolic BP Location Tested BP Systolic [...] Weight in lbs Pre/Post Dialysis Refused Weight 246.752610524891 BP Diastolic BP Location Tested BP Systolic BP Type 66 L arm 118 sitting Fetus Heart Rate Present Fetus Movement A Yes Comments Patient c/o of some nausea a nd [place]. No bleeding. Good movement. Had MFM [...] Weight in lbs Pre/Post Dialysis Refused Weight 249.537336977402 BP Diastolic BP Location Tested BP Systolic [...] Weight in lbs Pre/Post Dialysis Refused Weight 247.391700347380 BP Diastolic BP Location Tested BP Systolic BP Type 77 122 Fetus Heart Rate Present Fetus Movement Comments Flowsheet Date 02/17/2024 Lewis Score Blood Edema Fundus Height Fundus Units Glucose Ketones Leukocytes Nitrite Labor Signs Protein Cervic Dilation Cervic Effacement Cervic Station none Type Weight in lbs Pre/Post Dialysis Refused Weight 247.629462845613 BP Diastolic BP Location Tested BP Systolic [...] Weight in lbs Pre/Post Dialysis Refused Weight 248.184402000236 BP Diastolic BP Location Tested BP Systolic [...] Type Weight in lbs Pre/Post Dialysis Refused 249.796054870668 BP Diastolic BP Location Tested BP Systolic [...] Weight in lbs Pre/Post Dialysis Refused Weight 248.641756418156 BP Diastolic BP Location Tested BP Systolic BP Type 74 L arm 118 sitting Fetus Heart Rate Present A 140 Fetus Movement A Yes Comments Good movement. No ctx, LOF, VB. Will move induction from 03/15 to 03/16 due to staffing issues at [facility]. BPP 10/28 at [facility] Thursday, NST reactive today. Labor precautions reviewed. Menstrual History Last Menstrual Date Menses Monthly On Bcp Conception Prior Menses Frequency Hcg Plus Date Menarche Onset Age 0306/03/2023 Genetic Screening And Infection History Question Response Note Mental Retardation/Autism false Patient's Age Will Be 35 Years Or Older At Estim ated Date of Delivery false Thalassemia (Malaysian, Grenadian, Mediterranean, Or Background): MCV < 80 false Neural Tube Defect (Meningomyelocele, Spina Bifi da, Or Anencephaly) false Congenital Heart Defect false Down Syndrome false Ben-Sachs (eg, Episcopal, Cajun, Italian-[place]) f alse Juve Disease false Sickle Cell Disease Or Trait () false Hemophilia Or Other Blood Disorders false Muscular Dystrophy false Cystic Fibrosis false [place]'s Chorea false Intellectual Disability/Autism false If Yes, [...]
--- OUTSIDE RECORDS SUMMARY | 2024-03-25 06:51 | XMS_ITS | Data Portability ---
Author Organization [facility] Address [address] [place] [address] Assessment Encounter Date Assessment Date Assessment LastModified by Organization Details LastModified Time 12/25/2017 12/25/2017 12yo G0 here for contraceptive counseling. [email or web address] Not available 12/25/2017 14:42:23 Plan of Treatment Reminders Order Date Submit Date Provider Last Modified By Organization Details Last Modified Time Details Appointments None recorded. Lab chlamydia trachomatis + neisseria gonorrhoeae + trichomonas vaginalis DNA panel, MAYELIN+probe, unspecified specimen 2022 023 [facility], [address] [place] [address], [address], [place], [address], 3 22:07:38 HIV 1+2 Ab + HIV1 p24 Ag, quantitativ e immunoassay , serum 2022 023 [facility], [address] [place] [address], [address], [place], [address], 3 10:28:49 hepatitis panel (A+B+C), acute, serum 2022 023 [facility], [address] [place] [address], [address], [place], [address], 3 22:07:37 test, urine 2022 023 [place] In-Office Order, Internal Use Only DO Not Attach Compendium DO Not Attach Compendium, Do Not Delete/merge, [id number] 10:45:00 HbA1c (hemoglobin A1c), blood 2022 023 [facility], [address], [address], [place], [address], 3 22:07:40 lipid panel w/ direct LDL, serum 2022 023 [facility], [address] [place] [address], [address], [place], [address], 3 22:07:39 TSH + free T4, serum 2022 023 [facility], [address] [facility], [address], [place], [address], 22:07:39 Referral None recorded. Procedures None recorded. Surgeries None recorded. Imaging None recorded. Medication Orders Depo-Shearer Screen Measurer And Trimmer a 150 mg/mL intramuscul ar suspension 2017 018 [id number], [address] [place], [place], [id number], 09:46:47 Depo-Shearer Screen Measurer And Trimmer a 150 mg/mL intramuscul ar syringe 2017 018 [email or web address] 14 Not available 09:46:49 Sprintec (28) 0.25 mg-35 mcg tablet 2022 023 [facility][id number], [address], [place], [id number], 10:28:04 Patient TargetsNo targets recorded. Patient Instructions Encounter Date Encounter Id Patient Instructions Last Modified By Organization Details Last Modified Time 08/06/2016 [id number] visual acuity* [email or web address] Not available 08/06/2016 15:28:29 12/17/2022 [id number] A healthy lifestyle: care instructions prasanna Not available 12/17/2022 10:21:17 Reason for Referral None Reported. Results Created Date Observation Date Name Description Value Unit Range Abnormal Flag Note LastModifiedBy Organization Detail LastModifiedTime 08/06/2016 visua l acuit y* R Eye Uncorrected 20/25 Not Available In-O ffice Order Internal Use Only DO Not Attach Compendium DO Not Attach Compendium, Do Not Delete/merge, [id number] 08/06/2016 14:47:21 08/06/2016 visua l acuit y* L Eye Uncorrected 20/25 Not Available In-O ffice Order Internal Use Only DO Not Attach Compendium DO Not Attach Compendium, Do Not Delete/merge, [id number] 08/06/2016 14:47:21 12/18/19 23 12/18/2022 ACUTE HEPAT ITIS hep A Ab, IgM Negati ve negati ve Not Available [facility] ([facility]) [address] [place], [address], 12/18/2022 22:07:37 12/18/19 23 12/18/2022 ACUTE HEPAT ITIS HBsAg screen Negati ve negati ve Not Available [facility] ([facility]) [address] [place], [address], 12/18/2022 22:07:37 12/18/19 23 12/18/2022 ACUTE HEPAT ITIS hep B core Ab, IgM Negati ve negati ve Not Available [facility] ([facility]) [address] [place], [address], 12/18/2022 22:07:37 12/18/19 23 12/18/2022 ACUTE HEPAT ITIS HCV Ab Non Reacti ve nonrea ctive Not Available [facility] ([facility]) [address] [place], [address], 12/18/2022 22:07:37 12/18/19 23 12/18/2022 CT, NG, TRICH VAG BY MAYELIN chlamydia by MAYELIN Negati ve negati ve Not Available [facility] ([facility]) [address] [place], [address], 12/18/2022 22:07:38 12/18/19 23 12/18/2022 CT, NG, TRICH VAG BY MAYELIN gonococcus by MAYELIN Negati ve negati ve Not Available [facility] ([facility]) [address] [place], [address], 12/18/2022 22:07:38 12/18/19 23 12/18/2022 CT, NG, TRICH VAG BY MAYELIN trich vag by MAYELIN Negati ve negati ve Not Available [facility] ([facility]) [address] [place], [address], 12/18/2022 22:07:38 12/18/19 23 12/18/2022 TSH+F REE T4 TSH 1.760 uIU/m L 0.450- 4.500 Not Available [facility] ([facility]) [address] [place], [address], 12/18/2022 22:07:39 12/18/19 23 12/18/2022 TSH+F REE T4 T4,free(dire ct) 1.17 NG/dL 0.93-1 .60 Not Available [facility] ([facility]) [address] [place], [address], 12/18/2022 22:07:39 12/18/19 23 12/18/2022 LP+LD L DIR cholesterol, total 137 mg/dL 100-16 9 Not Available [facility] ([facility]) [address] [place], [address], 12/18/2022 22:07:39 12/18/19 23 12/18/2022 LP+LD L DIR triglyceride s 44 mg/dL 0-89 Not Available [facility] ([facility]) [address] [place], [address], 12/18/2022 22:07:39 12/18/19 23 12/18/2022 LP+LD L DIR HDL cholesterol 42 mg/dL >39 Not Available [facility]) [address] [place], [address], 12/18/2022 22:07:39 12/18/19 23 12/18/2022 LP+LD L DIR VLDL cholesterol darvin 10 mg/dL 5-40 Not Available [facility] ([facility]) [address] [place], [address], 12/18/2022 22:07:39 12/18/19 23 12/18/2022 LP+LD L DIR LDL chol calc (nih) 85 mg/dL 0-109 Not Available [facility] ([facility]) [address] [place], [address], 12/18/2022 22:07:39 12/18/19 23 12/18/2022 LP+LD L DIR LDL chol. (direct) 88 mg/dL 0-109 Not Available [facility] ([facility]) [address] [place], [address], 12/18/2022 22:07:39 12/18/19 23 12/17/2022 HEMOG LOBIN A1C hemoglobin A1C 5.1 % 4.8-5. 6 Predi abete s: 5.7 - 6.4 Diabe minh: >6.4 Glyce kinjal contr ol for adult s with diabe minh: <7.0 Not Available [facility] ([facility]) [address] [place], [address], 12/18/2022 22:07:40 12/18/19 23 12/18/2022 HIV AB/P2 4 AG WITH REFLE X HIV Ab/P24 Ag screen Non Reacti ve nonrea ctive HIV Negat jennifer HIV-1 /HIV- 2 antib odies and HIV-1 p24 antig en were NOT detec luke. There is no labor atory evide nce of HIV infec tion. Not Available [facility] ([facility]) [address] [place], [address], 12/18/2022 22:07:40 12/18/19 23 12/18/2022 INTER PRETA TION: interpretati on: Commen t Not infec luke with HCV unles s early or acute infec tion is suspe cted (whic h may be delay ed in an immun ocomp romis ed indiv idual ), or other evide nce exist s to indic ate HCV infec tion. Not Available [facility] ([facility]) [address] [facility], [place], [address], 12/18/2022 22:07:37 12/18/19 23 12/17/2022 pregn jayson test, urine HCG negati ve Not Available In-Office Order Internal Use Only DO Not Attach Compendium DO Not Attach Compendium, Do Not Delete/merge, [id number] 12/17/2022 10:27:34 Result Notes None recorded. Problems Name Problem SNOMED Code Status Onset Date Resolution Date Notes Provider Name and Address Organization Details Recorded Time Asthma 059258291 Active 018 Cliff Lucero MA [facility], [place] - [facility] 12/25/2017 12:14:27 Notes:eye problems Problem Notes [...] Not Available Not Available No t Available Depo-Shearer Screen Measurer And Trimmer a 150 mg/mL intramuscul ar suspension Inject [...] completed Not Available Not Available Not Available Depo-Shearer Screen Measurer And Trimmer a 150 mg/mL intramuscul ar syringe Inject [...] Address Organization Details Last Updated DateTime 12/25/2017 39052.67 g 102 mm[Hg] 62 mm[Hg] Cliff Lucero [...] 3 158.75 cm 99 % 40.2 kg/m2 886639. 9 g 18 /min 98.6 [degF] 98 % 98 % 75 /min 102 mm[Hg] 62 mm[Hg] Alina Gifford [facility] 3 09:49:59 Date Recorded Body height Body weight Body mass index (BMI) Heart rate Respiratory rate Body temperature Systolic blood pressure Diastolic blood pressure Provider Name and Address Organization Details Last Updated DateTime 7 158.75 cm 98249.8 g 22.6 kg/m2 67 /min 67 /min 97.1 [degF] 110 mm[Hg] 60 mm[Hg] Marlene Figueroa MA [facility] 7 14:47:02 Social History Question Answer Notes LastModified by Sundia [email or web address] ion Details LastModified Time Tobacco Smoking Status Never [facility] 12/25/2017 12:19:42 What Is Your Level Of Alcohol Consumption? None Information not available 12/17/2022 What Is Your Level Of Caffeine Consumption? None [email or web address] Information not available 12/17/2022 What Was The Date Of Your Most Recent Tobacco Screening? 12/17/2022 [email or web address] Information not available 12/17/2022 Do You Use Any Illicit Or Recreational Drugs? No [email or web address] Information not available 12/17/2022 Has Tobacco Cessation Counseling Been Provided? Yes [email or web address] Information not available 12/17/2022 On What Date Was Tobacco Cessation Counseling Provided? 12/17/2022 Information not available 12/17/2022 Do You Or Have You Ever Used Any Other Forms Of Tobacco Or Nicotine? No [email or web address] Information not available 12/17/2022 Sex: Unknown Functional [...] Time meningococcal MCV4P 7 completed Not Available [facility] 04/09/2019 02:39:52 Tdap 7 completed Not Available [facility] 04/09/2019 02:33:31 Influenza, split virus, quadrivalent, PF 3 completed MARY FERNÁNDEZ NP Attn: Accounting,204 1 [facility], [place], [place], [address] [place] [address], [facility] 12/19/2022 04:27:41 DTP 5 completed MARY FERNÁNDEZ NP Attn: Accounting,204 1 [facility], [place], [place], [address] [place] [address], [facility] 12/17/2022 10:14:09 DTP 5 completed MARY FERNÁNDEZ NP Attn: Accounting,204 1 [facility], [place], [place], [address] [place] [address], [facility] 12/17/2022 10:14:09 DTP 6 completed MARY FERNÁNDEZ NP Attn: Accounting,204 1 [facility], [place], [place], [address] [place] [address], [facility] 12/17/2022 10:14:09 DTP 7 completed MARY FERNÁNDEZ NP Attn: Accounting,204 1 [facility], [place], [place], [address] [place] [address], [facility] 12/17/2022 10:14:09 DTP 9 completed MARY FERNÁNDEZ NP Attn: Accounting,204 1 [facility], [place], [place], [address] [place] [address], [facility] 12/17/2022 10:14:09 polio, unspecified formulation 5 completed MARY FERNÁNDEZ NP Attn: Accounting,[address], [place], [address], [place] [facility] 12/17/2022 10:14:09 polio, unspecified formulation 5 completed MARY FERNÁNDEZ NP Attn: Accounting,[address] [facility], [place], [address], [place] [facility] 12/17/2022 10:14:09 polio, unspecified formulation 6 completed MARY FERNÁNDEZ NP Attn: Accounting,[address] [facility], [place], [address], [place] [facility] 12/17/2022 10:14:09 polio, unspecified formulation 6 completed Marlene Figueroa [place] null, [place] [facility] 08/05/2016 11:16:39 polio, unspecified formulation 9 completed MARY FERNÁNDEZ NP Attn: Accounting,204 1 [facility], [place], [address], [place] [facility] 12/17/2022 10:14:09 Hib, unspecified [...] completed MARY FERNÁNDEZ NP Attn: Accounting,[address] [facility], [place], [address], [place] [facility] 12/17/2022 10:14:09 pneumococcal, unspecified formulation 5 completed MARY FERNÁNDEZ NP Attn: Accounting,[address] [facility], [place], [address], [place] [facility] 12/17/2022 10:14:09 pneumococcal, unspecified formulation 6 completed MARY FERNÁNDEZ NP Attn: Accounting,204 1 [facility], [place], [place], [address] [place] [address], [place] [facility] 12/17/2022 10:14:09 pneumococcal, unspecified formulation 6 completed MARY FERNÁNDEZ NP Attn: Accounting,204 1 [facility], [place], [place], [address] [place] [address], [place] [facility] 12/17/2022 10:14:09 Hep B, unspecified formulation 5 completed MARY FERNÁNDEZ NP Attn: Accounting,204 1 [facility], [place], [place], [address] [place] [address], [place] [facility] 12/17/2022 10:14:09 Hep B, unspecified formulation 5 completed MARY FERNÁNDEZ NP Attn: Accounting,204 1 [facility], [place], [place], [address] [place] [address], [place] [facility] 12/17/2022 10:14:09 Hep B, unspecified formulation 6 completed MARY FERNÁNDEZ NP Attn: Accounting,204 1 [facility], [place], [place], [address] [place] [address], [place] [facility] 12/17/2022 10:14:09 MMR 6 completed Marlene Figuero[place] [facility] 08/05/2016 11:18:34 MMR 9 completed Marlene Figuero[place] [facility] 08/05/2016 11:18:40 varicella 7 completed Marlene Figueroa [place] [facility] 08/05/2016 11:19:04 varicella 3 completed MARY FERNÁNDEZ NP Attn: Accounting,204 1 [facility], [place], [address] [place] [address], [place] [facility] 12/17/2022 10:14:09 Hep A, unspecified formulation 3 completed MARY FERNÁNDEZ NP Attn: Accounting,204 1 [facility], [place], [address], [facility] 12/17/2022 10:14:09 Hep A, unspecified formulation 4 completed MARY FERNÁNDEZ NP Attn: Accounting,204 1 [facility], [place], [address], [facility] 12/17/2022 10:14:09 Past Encounters Encounter ID Performer Location Encounter Start Date Encounter Closed Date Diagnosis/Indication Diagnosis SNOMED-CT Code Diagnosis ICD10 Code [id number] DARWIN Ramirez [facility] [address] [place] [address] 08/06/2016 14:44:38 08/06/2016 15:34:07 History and physical examination, [facility] 41452120 Z02.0 [id number] Herbie Monique e (MATHEMATICAL SCIENCES PROFESSOR) [address] [place] [address] 12/25/2017 11:55:32 12/29/2017 10:55:21 Contraception care 481558239 Z30.40 [id number] MARY FERNÁNDEZ NP [facility] ([facility]) [address] [place] [address] 12/17/2022 09:30:00 12/19/2022 12:13:21 Morbid obesity 222835795 E66.01 Venereal d isease screening 339709918 Z11.3 Initial pr escription of oral contraception 757599940 Z30.011 Administra tion of influenza vaccine 93072363 Z23 [id number] Syed Knight MD [facility] ([facility] [address]) [address] [place] [address] 03/14/2024 15:05:00 03/19/2024 17:28:27 Health Concerns Section Related Observation LastModified by Organization Detai ls LastModified Time None Recorded Concern Status LastModified by Organization Details LastModified Time None Recorded Advance Directives Directive None Recorded Payers Encounter Date Sequence Insurance Name Policy Number Policy Kraus Covered Member ID Kraus Member ID Guarantor Name 08/06/2016 1 [facility] (MEDICAID HMO) [id number] Loulou Chang [id number] Tamica Jewell 12/25/2017 1 [facility] (MEDICAID HMO) [id number] Loulou Chang [id number] Tamica Jewell 12/17/2022 1 [facility] (MEDICAID HMO) [id number] 0003 Loulou Chang [id number] Tamica Jewell 03/14/2024 1 [facility] (MEDICAID HMO) [id number] 0003 Louloura Chang [id number] Tamica Jewell Notes Date Note Type Note Provider Name and Address Organization Details Recorded Time 08/06/2016 text/html presents for susannah ool physical. reports no problems/concerns. DARWIN Ramirez Attn: Accounting,[address] [facility], [place], [address], [facility] 08/06/2016 15:29:02 12/25/2017 text/html Gabrielle is a [...] bleeding or cramping. LMP 11/30/17. Herbie shah, [place] [facility] 12/25/2017 16:20:50 12/17/2022 text/html The patient pres ents to the office for a routine office visit. She is here to establish care. She would like to discuss going on control. She would also like to be tested for STI's. She denies additional symptoms or concerns. MARY FERNÁNDEZ NP Attn: Accounting,[address] [facility], [place], [address], [facility] 12/19/2022 04:30:12 03/14/2024 text/html pt no show. lady t opened in error. Syed Knight MD Attn: Accounting,[address] [facility], [place], [address], [facility] 03/19/2024 17:28:26 OBGyn Episode No OBEpisode recorded.
--- OUTSIDE RECORDS SUMMARY | 2024-03-25 06:51 | XMS_ITS | Data Portability ---
Author Organization [facility] Jarvam , [facility] Address [address] [place] [address] Assessment No assessment recorded. Plan of Treatment Reminders Order Date Submit Date Provider Last Modified By Organization Details Last Modified Time Details Appointments None record ed. Lab None record ed. Referral None record ed. Procedures None record ed. Surgeries None record ed. Imaging None record ed. Medication Orders None record ed. Patient TargetsNo targets recorded. Patient InstructionsNo instructions recorded. Reason for Referral None Reported. Medical Equipment None Reported. Medications Name Sig Start Date Stop Date [...] AFFECTED AREA TWICE DAILY FOR 14 DAYS active Not Available Not Available No t Available montelukast 10 mg tablet TAKE 1 TABLET BY MOUTH EVERY NIGHT AT BEDTIME 11/03 completed Not Available Not Available Not Available albuterol sulfate HFA 90 mcg/actuati on aerosol inhaler INHALE 2 PUFFS BY MOUTH EVERY 6 HOURS NEEDED active Not Available Not Available No t Available loratadine 10 mg tablet TAKE 1 TABLET BY MOUTH EVERY NIGHT AT BEDTIME 11/03 completed Not Available Not Available Not Available [...] FOUR TIMES DAILY NEEDED FOR ALLERGY SYMPTOMS active Not Available Not Available No t Available Vitals Date Recorded Body weight Body temperature Body mass index (BMI) Body mass index (BMI) Percentile per age and sex Body height Systolic blood pressure Diastolic blood pressure Provider Name and Address Organization Details Last Updated DateTime 3 414287. 54 g 97.7 [degF] 37.8 kg/m2 98 % 163.83 cm 120 mm[Hg] 80 mm[Hg] Brittni Fonseca [facility] 3 10:56:09 Social History Question Answer Notes LastModified by [employer] ion Details LastModified Time Tobacco Smoking Status Never Smoker Brittni Fonseca alyssa [facility] 11/03/2022 11:03:39 What Is Your Level Of Alcohol Consumption? None [email or web address] Information not available 11/03/2022 Are You Blind Or Do You Have Difficulty Seeing? No Information not available 11/03/2022 Are You Currently Employed? Yes [email or web address] Information not available 11/03/2022 Are You Deaf Or Do You Have Serious Difficulty Hearing? No [email or web address] Information not available 11/03/2022 What Type Of Diet Are You Following? REGULAR [email or web address] Information not available 11/03/2022 What Is The Highest Grade Or Level Of School You Have Completed Or The Highest Degree You Have Received? CL97827-9 [email or web address] Information not available 11/03/2022 What Is Your Occupation? [employer] Information not available 11/03/2022 What Is Your Relationship Status? Single [email or web address] Information not available 11/03/2022 Are You Sexually Active? Yes [email or web address] Information not available 11/03/2022 Do You Use Any Illicit Or Recreational Drugs? No [email or web address] Information not available 11/03/2022 Do You Or Have You Ever Used Any Other Forms Of Tobacco Or Nicotine? No Information not available 11/03/2022 Sex: Unknown Functional Status Question Answer Note LastModified by Organizat ion Details LastModified Time What is your exercise level? Occasional Information not available 11/03/2022 Mental Status None recorded. Family History Nothing Reported. Medical History Condition Response Other Cancer N High Blood Pressure N Colon Cancer N Cytomegalovirus N Hyperthyroidism N Breast Cancer N Herpes (HSV) N Blood Transfusion N MRSA N Lung Cancer N Hypothyroidism N Depression N Incontinence N Panic Attacks N Neurological Disorder N Deep Vein Thrombosis N Anxiety Disorder N Autoimmune disease N Arthritis N Tuberculosis/Positive PPD N Shingles N Polycystic Ovarian Syndrome N Cervical Cancer N Chlamydia N Hematuria N Stroke N Varicosities N Crohn's Disease N Seasonal allergies N Alzheimer's/Dementia N COPD/Emphysema N HPV/Genital Warts N Endometriosis N IBS (Irritable Bowel Syndrome) N History of Abnormal Pap N High Cholesterol N Liver Disease N Kidney Infection N Fibromyalgia N Ulcer N Kidney Disease N HIV N Gallbladder disease N Sickle Cell Disease/Trait N Von Willebrand disease N ADD/ADHD N Eating Disorder N Anemia N Diabetes Mellitus (non-insulin dependent ) N Ovarian Problems N Multiple Sclerosis N Gonorrhea N Frequent Urinary Tract infections N Osteopenia N Headaches/migraines N GERD (reflux) N Ovarian Cancer N Diabetes (insulin dependent) N Seizures/Epilepsy N Fibroids N Heart Attack N Asthma N Lupus N Endometrial Cancer N Rubella N Blood Clotting Disorder N Bipolar Disorder N Diabetes Mellitus (during ) N Ulcerative Colitis N Hepatitis N Heart Disease N Pulmonary Embolism N RPR N Chicken Pox N Osteoporosis N Gynecological History Statement/Question Response Date of last HPV 10/27/2022 Flow Light Date of LMP 10/21/2022 HPV Vaccine Y Duration of Flow (days) 5 Current Control Method None Age at Menarche 11 Obstetrics History GPAL:G 0 P 0 0 0 0 Past Encounters Encounter ID Performer Location Encounter Start Date Encounter Closed Date Diagnosis/Indication Diagnosis SNOMED-CT Code Diagnosis ICD10 Code [id number] JOSH NYE [facility] [address] [place] [address] 11/03/2022 10:44:33 11/03/2022 12:58:04 Contraception education 796859516 Z30.09 Health Concerns Section Related Observation LastModified by Organization Lobito ls LastModified Time None Recorded Concern Status LastModified by Organization Details LastModified Time None Recorded Advance Directives Directive None Recorded Payers Encounter Date Sequence Insurance Name Policy Number Policy Kraus Covered Member ID Kraus Member ID Guarantor Name 11/03/2022 1 [facility] [id number] Loulou Chang [id number] Loulou Bernardo Notes Date Note Type Note Provider Name and Address Organization Details Recorded Time 11/03/2022 text/html Loulou is here to discuss BC. She has had a depo a few years ago. Currently not on any BC. Patient is sexually active, no concerns for STD's. Patient is interested in Nexplanon placement. APRIL LOPEZ, FOOD SERVICE CLERK [address] [facility], [place], [address], [facility] 11/03/2022 11:19:37 OBGyn Episode No OBEpisode recorded.
== END 2024-03-20 09:23 | disposition home or self-care (01) | DRG 540 ==
LOC: ANHLDR 03-18 04:28 → ANHOB2 03-18 07:55
PROVIDERS: Obstetrics & Gynecology; Admitting Provider Obstetrics & Gynecology; Referring Provider Advanced Practice Midwife; Visit Provider Obstetrics & Gynecology
PROC: 10D00Z1 Extraction of Products of Conception, Low, Open Approach (ICD-10-PCS; CPT 59514; principal; 2024-03-18 03:30)
DX: O62.2 Other uterine inertia (principal); O76 Abnormality in fetal heart rate and rhythm complicating labor and delivery; O77.0 Labor and delivery complicated by meconium in amniotic fluid; O69.81X0 Labor and delivery complicated by cord around neck, without compression, not applicable or unspecified; Z3A.39 39 weeks gestation of pregnancy; Z37.0 Single live birth
CPT/HCPCS: 36415; 85025; 86592; 86703; 86850; 86900; 86901; 88307; A9270; G0432; J0456; J0690; J1200; J1885; J2175; J2274; J2371; J2405; J2543; J2590; J2704; J2795; J3010; J7120